=== PATIENT | male | born 1940 | race Caucasian/White ===

== ENCOUNTER 2022-11-19 08:48 | Outpatient (OUT) | payer MEDICARE, SELFPAY | END 2022-11-19 08:49 | disposition home or self-care (01) | LOC: LAB 08:53 | PROVIDERS: PCP Family Medicine; Visit Provider Urology | DX: C61 Malignant neoplasm of prostate (principal) | CPT/HCPCS: 36415; 84153 ==

== ENCOUNTER 2023-02-11 07:31 | Outpatient (RCR) | payer MEDICARE, SELFPAY ==
[2023-02-10 14:51] LABS: Hemoglobin 7.3 g/dL (14.0-18.0)
[2023-02-10 14:57] LABS: Hematocrit 23.8 % (42.0-54.0)
[2023-02-11 09:08] VITALS: BP 141/72; PULSE 85; RESP 18; TEMP 36.8
--- NOTE | 2023-02-11 09:12 | PC.NURSE ---
0825 Arrived ambulatory to chair 3. alert oriented Denies any complaints of pain. Respirations with ease, lungs clear posteriorly to auscultation. Heart tones strong and regular. No peripheral edema noted. 0830#20 IV initiated left forearm on 1st attempt, tolerated well. NSS initiated. educated on s/s of blood rxn ie, dyspnea chest pain, chills, itching etc instructed to notify staff in any occur. Labs drawn with IV start.
[2023-02-11] MEDS: DIPHENHYDRAMINE HCL 25 MG CAPSULE PO (09:25)
[2023-02-11] MEDS: ACETAMINOPHEN 325 MG TABLET 650 MG PO (09:25)
[2023-02-11] MEDS: 0.9 % SODIUM CHLORIDE 250 ML 20 ML IV (09:26)
[2023-02-11 09:59] VITALS: BP 141/72; PULSE 85; RESP 18; TEMP 36.8; O2SAT 93
--- NOTE | 2023-02-11 10:13 | PC.NURSE ---
1000 1st unitof prbc's initiated.
[2023-02-11 10:18] VITALS: BP 136/72; PULSE 85; RESP 18; TEMP 36.4
--- NOTE | 2023-02-11 10:28 | PC.NURSE ---
PRBC's infusing without difficulty, increased rate to 120
[2023-02-11 11:18] VITALS: BP 134/76; PULSE 71; RESP 18; TEMP 36.4; O2SAT 96
[2023-02-11 11:56] VITALS: BP 123/71; PULSE 76; RESP 16; TEMP 36.6; O2SAT 96
--- NOTE | 2023-02-11 12:02 | PC.NURSE ---
1155 1st unit infused. NS flush initiated. VS obtained. tolerated transfusion without difficult. IV site clear, no s/s of infiltration. Up to bathroom to void, gait steady. 1200 2ndunit prbc's initiated see TAR. Lunch ordered. 1205 Eating lunch, watches TV
--- NOTE | 2023-02-11 12:54 | PC.NURSE ---
Resting quietly in recliner, watching TV in to visit with patient. PRBC's infusing without any issues. Patient educated on what to watch for after returning home ie post transfussion reactions, fluid overload etc. Verbalizes understanding.
--- NOTE | 2023-02-11 14:25 | PC.NURSE ---
73831 2nd unit of PRBC's infused. tolerated well. IV dc'd catheter intact. cotton ball applied, secured with coban - instructed he could removie it inafter 10 - 15 mins. verbalized understanding
== END 2023-02-11 16:08 | disposition home or self-care (01) ==
LOC: INF 07:31
PROVIDERS: PCP Family Medicine; Visit Provider Internal Medicine Hematology & Oncology
DX: D64.9 Anemia, unspecified (principal); C61 Malignant neoplasm of prostate
CPT/HCPCS: 36415; 36430; 85014; 85018; 86850; 86900; 86901; P9016

== ENCOUNTER 2023-04-08 07:35 | Outpatient (RCR) | payer MEDICARE, SELFPAY ==
[2023-04-07 15:42] LABS: Hematocrit 20.9 % (42.0-54.0); Hemoglobin 6.3 g/dL (14.0-18.0)
[2023-04-08] VITALS (10 sets, daily range): BP systolic 117–173; BP diastolic 53–82; PULSE 66–91; RESP 16–18; TEMP 36.3–37.1; O2SAT 95–97
[2023-04-08] MEDS: ACETAMINOPHEN 325 MG TABLET 650 MG PO (08:15)
[2023-04-08] MEDS: 0.9 % SODIUM CHLORIDE 250 ML 10 ML IV (08:16)
[2023-04-08] MEDS: DIPHENHYDRAMINE HCL 25 MG CAPSULE PO (08:18)
--- NOTE | 2023-04-08 08:27 | PC.NURSE ---
Pt. Instructed on sign & symptoms of reaction
--- NOTE | 2023-04-08 09:43 | PC.NURSE ---
Cont. to tolerate transfusion well without c/o. Up to BR without assist.
--- NOTE | 2023-04-08 11:55 | PC.NURSE ---
Tolerating 2nd unit of blood well. No sign or symptoms of reaction. Lunch tray ordered.
== END 2023-04-21 23:59 | disposition home or self-care (01) ==
LOC: INF 07:35
PROVIDERS: PCP Family Medicine; Visit Provider Physician Assistant Medical
DX: D64.9 Anemia, unspecified (principal); C61 Malignant neoplasm of prostate
CPT/HCPCS: 36415; 36430; 85014; 85018; 86850; 86900; 86901; P9016

== ENCOUNTER 2023-04-25 07:37 | Outpatient (RCR) | payer MEDICARE, SELFPAY ==
[2023-04-23 08:44] LABS: Hematocrit 26.5 % (42.0-54.0); Hemoglobin 8.2 g/dL (14.0-18.0)
[2023-04-25] VITALS (8 sets, daily range): BP systolic 127–157; BP diastolic 58–76; PULSE 60–90; RESP 16–18; TEMP 36.6–36.9; O2SAT 96–98
[2023-04-25] MEDS: ACETAMINOPHEN 325 MG TABLET 650 MG PO (08:10)
[2023-04-25] MEDS: DIPHENHYDRAMINE HCL 25 MG CAPSULE PO (08:10)
[2023-04-25] MEDS: 0.9 % SODIUM CHLORIDE 250 ML 10 ML IV (08:12)
--- NOTE | 2023-04-25 08:52 | PC.NURSE ---
0750: Pt. to [facility] amb. for ordered blood transfusion. Seated in recliner. Denies c/o pain, n/v or dyspnea. Denies allergies. VSS. #22 gauge IV initiated to right forearm on first attempt. Flushes easily without redness or edema. Pt. tolerated with no c/o. Given pillow, blanket and water. Declines wanting to eat at this time.
--- NOTE | 2023-04-25 08:54 | PC.NURSE ---
0810: Medicated with Tylenol and Benadryl P.O as ordered.
--- NOTE | 2023-04-25 08:55 | PC.NURSE ---
0832: First unit PRBC initiated at this time.
--- NOTE | 2023-04-25 08:56 | PC.NURSE ---
0847: Pt. tolerating PRBC infusion without s&s of adverse reaction. Pt. denies needs.
--- NOTE | 2023-04-25 09:42 | PC.NURSE ---
Pt. cont. to deny c/o. VSS. Food menu provided.
--- NOTE | 2023-04-25 10:41 | PC.NURSE ---
0950: First unit PRBC completed without s&s of transfusion reaction. VSS. 1002: Second unit PRBC initiated at this time. Pt. given breakfast tray. 1040: Pt. up to bathroom to void.
--- NOTE | 2023-04-25 11:15 | PC.NURSE ---
1017: Pt. tolerating second unit PRBC without c/o. VSS.
--- NOTE | 2023-04-25 12:54 | PC.NURSE ---
1140: Second unit PRBC completed at this time without evidence of transfusion reaction. VSS. IV d/c'd, pressure to site. 1142: Pt. d/c'd amb. to home
== END 2023-04-25 13:10 | disposition home or self-care (01) ==
LOC: INF 07:37
PROVIDERS: PCP Family Medicine; Visit Provider Internal Medicine Hematology & Oncology
DX: D64.9 Anemia, unspecified (principal); C61 Malignant neoplasm of prostate
CPT/HCPCS: 36415; 36430; 85014; 85018; 86850; 86900; 86901; P9016

== ENCOUNTER 2023-06-06 11:47 | Emergency (ER) | payer MEDICARE, SELFPAY ==
[2023-06-06] VITALS (39 sets, daily range): BP systolic 113–150; BP diastolic 56–73; PULSE 74–94; RESP 3–31; TEMP 36.6; O2SAT 98–100; BMI 21.1
--- NOTE | 2023-06-06 12:11 | ECG_ITS ---
The [facility] Test Date: 2023-06-06 Pat Name: KARIN BOB Department: Room: - Gender: Male Testing Coordinator: : 1940 Requested By: CHAYITO DUARTE Order Number: [id number] Reading MD: POLLO SOW Measurements Intervals [place] Rate: 80 P: 53 AK: 132 QRS: 67 QRSD: 80 T: 40 QT: 392 QTc: 427 Interpretive Statements 1100 Sinus rhythm 9110 normal ECG Compared to ECG 11/24/2021 09:52:38 No significant changes Electronically Signed On 06-08-2023 6:39:44 EST by POLLO SOW
--- NOTE | 2023-06-06 12:21 | CT_ITS ---
The [address] [address] Patient Name: KARIN BOB MRN: [id number] date: 1940 Sex: M Assigned Patient Location: ER Current Patient Location: .[facility] Accession/Order Number: [id number] Exam Date: 06/06/2023 12:17 Report Date: 06/06/2023 12:43 At the request of: MUNIRA HIGGINS Procedure: CT stroke head/brain wo con EXAM: CT stroke head/brain wo con; [id number] REASON FOR EXAM: altered mentation, TIA COMPARISON: None. TECHNIQUE: Axial CT images of the head obtained without contrast. Multiplanar reformats generated at the scanner. Dose reduction technique used: Automated exposure control and/or adjustment of the mA and/or kV according to patient size and/or use of iterative reconstruction technique. FINDINGS: Parenchyma: -Mild generalized cerebral volume loss. -No midline shift or mass effect. Basilar cisterns are patent. -No acute intracranial hemorrhage. -No loss of cortical mccabe-white differentiation to indicate acute cortical infarct. -Mild multifocal and bilateral periventricular white matter predominant hypoattenuation, nonspecific though commonly seen in the setting of chronic microvascular ischemic disease. Extra-axial spaces: No extra-axial fluid collection or hemorrhage. Ventricles: Within expected limits given the degree of cerebral volume loss. Paranasal sinuses: Partially visualized small volume layering fluid in the left maxillary sinus. Mastoid air cells: Visualized mastoids are clear. Orbits: No acute abnormality. Osseous: No acute findings. Sclerosis of the skull base which could represent the patient's known prostate metastases. Soft tissues: No acute abnormality. CT/CT stroke head/brain wo con IMPRESSION: 1. No acute intracranial abnormality demonstrated. 2. Layering fluid in the left maxillary sinus. Correlate for sinusitis. Electronically authenticated by: ABRAM ESTRADA Date: 06/06/2023 12:43
[2023-06-06] MEDS: 0.9 % SODIUM CHLORIDE 1,000 ML 999 ML IV (12:26)
[2023-06-06 12:28] LABS: Hematocrit 32.1 % (42.0-54.0); Hemoglobin 10.1 g/dL (14.0-18.0); Mean Corpuscular HGB Conc 31.5 g/dL (29.9-35.2); Mean Corpuscular Hemoglobin 30.2 pg (25.9-34.0); Mean Corpuscular Volume 96.1 fL (80.0-94.0); Mean Platelet Volume 8.9 fL (9.5-13.5); Platelet Count 173 10^3/uL (150-450); Red Blood Count 3.34 10^6/uL (4.70-6.10); Red Cell Distribution Width 17.5 % (11.0-15.0); White Blood Count 3.3 10^3/uL (4.0-11.0)
[2023-06-06 12:45] LABS: Alanine Aminotransferase 36 U/L (16-63); Albumin Globulin Ratio 0.9; Albumin Level 3.3 g/dL (3.4-5.0); Alkaline Phosphatase 625 U/L (46-116); Anion Gap 14.1; Aspartate Amino Transferase 45 U/L (15-37); Bilirubin Total 0.4 mg/dL (0.2-1.0); Calcium 8.2 mg/dL (8.5-10.1); Carbon Dioxide 23.6 mmol/L (21.0-32.0); Chloride 105 mmol/L (98-107); Estimated GFR (African America >60 (>=60); Estimated GFR (Non-African Ame >60 (>=60); Globulin 3.7 g/dL; Glucose 86 mg/dL (74-106); Potassium 4.7 mmol/L (3.5-5.1); Sodium 138 mmol/L (136-145)
[2023-06-06 12:55] LABS: Anisocytosis 1+; Basophils Abs Manual 0.03 10^3/uL (0.00-0.10); Eosinophils Absolute Manual 0.06 10^3/uL (0.00-0.70); Lymphocytes Absolute Manual 0.42 10^3/uL (1.20-3.80); Monocytes Absolute Manual 0.36 10^3/uL (0.30-0.80); Tear Drop Cells 1+
--- NOTE | 2023-06-06 13:01 | ED.GENADUL1 ---
HPI - General Adult General Chief complaint: Seizure Stated complaint: seizure Time Seen by Provider: 06/06/23 11:49 Source: patient Mode of arrival: walk-in History of Present Illness HPI narrative: gives the HPI - she witnessed the patient suddenly stop, was drooling from the side of the mouth and just staring and not responding. He started tremoring/shaking the told me. This last between 5 and 10 minutes, the said. She then drove him to the ED for evaluation. She said that he was not confused afterward and just seemed to snap out of it . No prior history of seizure or CVA. 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 He told me that his Hb has to be above 10 in order for him to continue to receive radiation therapy. he otherwise denies any other complaints or issues at this time. His PCP is Dr Duarte Related Data Home Medications Medication Instructions Recorded Confirmed tamsulosin 0.4 mg capsule 0.4 mg PO Q24H 02/11/23 06/06/23 Allergies Allergy/AdvReac Type Severity Reaction Status Date / Time No Known Drug Allergies Allergy Verified 06/06/23 11:52 [facility] Medical History (Updated 06/06/23 @ 16:31 by Rigo Parks) Cancer of bone ?C41.9 - Malignant neoplasm of bone and articular cartilage, unspecified (ICD-10) Exam Narrative Exam Narrative: Nurses notes and vital signs reviewed and patient is not hypoxic. afebrile General: Well-appearing and in no apparent distress. Skin: Warm, dry, no pallor noted. No rash. Head: Normocephalic, atraumatic. Neck: Supple, non-tender. Eye: Pupils are equal, round and EOMI. No scleral icterus. Ears, Nose, Mouth, and Throat: Oral mucosa is moist Cardiovascular: Regular Rate and Rhythm without murmur, gallop or rub. Respiratory: No accessory muscle use or respiratory distress. Lungs are clear to auscultation, no wheezing, rales or rhonchi Musculoskeletal: normal ROM, no calf or popliteal tenderness, no lower extremity edema/swelling GI: Abdomen is soft, non-distended. Normal bowel sounds. No tenderness to palpation. No rebound, guarding, or rigidity noted. Neurological: A&O x4. No cranial nerve dysfunction observed. No truncal ataxia. Moves all extremities. Sensation intact. No pronator drift or neglect noted. NIH score equals 0 Psychiatric: Cooperative and interactive. Normal mood and affect. Constitutional Vital Signs, click to edit/add: Last Vital Signs Temp 97.8 F 06/06/23 11:52 Pulse 81 06/06/23 13:40 Resp 15 06/06/23 13:40 BP 131/60 06/06/23 13:30 Pulse Ox 99 06/06/23 13:40 O2 Del Method Room Air 06/06/23 11:52 Course Vital Signs Vital signs: Vital Signs Temperature 97.8 F 06/06/23 11:52 Pulse Rate 80 06/06/23 11:52 Respiratory Rate 20 06/06/23 11:52 Blood Pressure 150/71 H 06/06/23 11:52 Pulse Oximetry 99 06/06/23 11:52 Oxygen Delivery Method Room Air 06/06/23 11:52 Temperature 97.8 F 06/06/23 11:52 Pulse Rate 81 06/06/23 13:40 Respiratory Rate 06/06/23 13:40 Blood Pressure 131/60 06/06/23 13:30 Pulse Oximetry 99 06/06/23 13:40 Oxygen Delivery Method Room Air 06/06/23 11:52 Medical Decision Making MDM Narrative Medical decision making narrative: 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 Blood drawn and sent for evaluation. Stroke CT Head obtained and negative for acutely worrisome pathology. Hb 10.1. CMP notable for elevated alk phos and AST, normal electrolytes and normal renal function. Case discussed with Dr Rubin, emissions inspector for admissions to [facility]. He wants the patient to go to a facility with Neuro coverage and ability to evaluated EEGs. I informed the patient and and they want the patient to go to [facility] - he does not want to go to [place]. Call placed to the [facility] Hospitalist to discuss. I spoke with Dr Hernandez and she accepted the patient's transfer to [facility] for admission. Lab Data Lab results reviewed: Yes I reviewed the patient's lab results Labs: Lab Results 06/06/23 06/06/23 Range/Units 12:02 14:21 WBC 3.3 L (4.0-11.0) 10^3/uL RBC 3.34 L (4.70-6.10) 10^6/uL Hgb 10.1 L (14.0-18.0) g/dL Hct 32.1 L (42.0-54.0) % MCV 96.1 H (80.0-94.0) fL MCH 30.2 (25.9-34.0) pg MCHC 31.5 (29.9-35.2) g/dL RDW 17.5 H (11.0-15.0) % Plt Count 173 (150-450) 10^3/uL MPV 8.9 L (9.5-13.5) fL Seg Neuts % (Manual) 73.0 Lymphocytes % (Manual) 13.0 L (20.5-60.0) % Monocytes % (Manual) 11.0 (1.7-12.0) % Eosinophils % (Manual) 2.0 (0.9-7.0) % Basophils % (Manual) 1.0 (0.2-2.0) % Neutrophils # (Manual) 2.40 (1.4-6.5) 10^3/uL Lymphocytes # (Manual) 0.42 L (1.20-3.80) 10^3/uL Monocytes # (Manual) 0.36 (0.30-0.80) 10^3/uL Eosinophils # (Manual) 0.06 (0.00-0.70) 10^3/uL Basophils # (Manual) 0.03 (0.00-0.10) 10^3/uL Anisocytosis 1+ Tear Drop Cells 1+ Sodium 138 (136-145) mmol/L Potassium 4.7 (3.5-5.1) mmol/L Chloride 105 (98-107) mmol/L Carbon Dioxide 23.6 (21.0-32.0) mmol/L Anion Gap 14.1 BUN 17.0 (7.0-18.0) mg/dL Creatinine 0.85 (0.70-1.30) mg/dL Est GFR ( Amer) >60 (>=60) Est GFR (Non-Af Amer) >60 (>=60) BUN/Creatinine Ratio 20.0 Glucose 86 (74-106) mg/dL Calcium 8.2 L (8.5-10.1) mg/dL Total Bilirubin 0.4 (0.2-1.0) mg/dL AST 45 H (15-37) U/L ALT 36 (16-63) U/L Alkaline Phosphatase 625 H (46-116) U/L Total Protein 7.0 (6.4-8.2) g/dL Albumin 3.3 L (3.4-5.0) g/dL Globulin 3.7 g/dL Albumin/Globulin Ratio 0.9 Urine Color Lt. yellow (YELLOW) Urine Clarity Clear (CLEAR) Urine pH 5.5 (5.0-9.0) Ur Specific [place] 1.020 (1.005-1.025) Urine Protein Negative (NEG/TRACE) mg/dL Urine Glucose (UA) Negative (NEGATIVE) mg/dL Urine Ketones Trace A (NEGATIVE) mg/dL Urine Occult Blood Negative (NEGATIVE) Urine Nitrite Negative (NEGATIVE) Urine Bilirubin Negative (NEGATIVE) Urine Urobilinogen 0.2 (0.2-1.0) EU/dL Ur Leukocyte Esterase Negative (NEGATIVE) Imaging Data CT scan - head: Attestation: I have reviewed the pertinent imaging results. Radiologist's impression: ITS Impressions Brain CT 06/06/23 12:21 IMPRESSION: 1. No acute intracranial abnormality demonstrated. 2. Layering fluid in the left maxillary sinus. Correlate for sinusitis. Electronically authenticated by: ABRAM ESTRADA Date: 06/06/2023 12:43 ADDENDUM: 06/06/23 1252 IMPRESSION: 1. No acute intracranial abnormality demonstrated. 2. Layering fluid in the left maxillary sinus. Correlate for sinusitis. Electronically authenticated by: ABRAM ESTRADA Date: 06/06/2023 12:50 ECG Data Attestation: I personally reviewed and interpreted this ECG as follows: Interpretation: EKG interpretation: Emergency Department physician interpretation. Normal sinus rhythm at 80bpm. Normal axis, normal intervals and no ST segment elevation or depression. Normal EKG. Discharge Plan Discharge Chief Complaint: Seizure Clinical Impression: Transient ischemic attack (TIA) Patient Disposition: [facility] Time of Disposition Decision: 15:29 Discharge Location: [facility] Prescriptions / Home Meds: No Action tamsulosin 0.4 mg capsule 0.4 mg PO Q24H Referrals: CHAYITO DUARTE [Primary Care Provider] - 1 week
[2023-06-06 14:31] LABS: Bilirubin Urine NEGATIVE (NEGATIVE); Blood Urine NEGATIVE (NEGATIVE); Clarity Urine CLEAR (CLEAR); Color Urine LT. YELLOW (YELLOW); Glucose Urine UA NEGATIVE (NEGATIVE); Ketones Urine TRACE mg/dL (NEGATIVE); Leukocyte Esterase Urine NEGATIVE (NEGATIVE); Nitrite Urine NEGATIVE (NEGATIVE); Protein Urine NEGATIVE (NEG/TRACE); Urobilinogen Urine 0.2 EU/dL (0.2-1.0); pH Urine 5.5 (5.0-9.0)
[2023-06-06 14:33] LABS: Urine Microscopic Indicated NO
== END 2023-06-06 18:04 | disposition short-term general hospital (02) ==
PROVIDERS: Emergency Provider Emergency Medicine; PCP Family Medicine
DX: G45.9 Transient cerebral ischemic attack, unspecified (principal); Z85.46 Personal history of malignant neoplasm of prostate; C79.51 Secondary malignant neoplasm of bone; Z79.899 Other long term (current) drug therapy
CPT/HCPCS: 36415; 70450; 80053; 81003; 85027; 93005; 99285

== ENCOUNTER 2023-06-22 09:57 | Outpatient (OUT) | payer MEDICARE, SELFPAY ==
--- NOTE | 2023-06-22 10:08 | CT_ITS ---
The [address] [address] Patient Name: KARIN BOB MRN: [facility]:[id number] date: 1940 Sex: M Assigned Patient Location: CT Current Patient Location: CT Accession/Order Number: [id number] Exam Date: 06/22/2023 10:25 Report Date: 06/22/2023 11:19 At the request of: KYARA WHITLOCK Procedure: CT angio neck EXAM: CT angio neck, CT angio head HISTORY: Transient Ischemic Attack G45.9 COMPARISON: CT head performed contemporaneously reported separately.. TECHNIQUE: Postcontrast CTA imaging of the head and neck was performed with coronal and sagittal reformats. Maximum intensity projection and 3-D reformats were performed on a separate workstation. This CT exam was performed using one or more of the following dose reduction techniques: Automated exposure control, adjustment of the MA and/or kV according to patient size, or use of iterative reconstruction technique. FINDINGS: Aortic arch: Imaged portion shows no evidence of aneurysm. No significant stenosis of the major origins of the major arch vessels. Right carotid system: No evidence of significant (50% or greater) stenosis or occlusion. Left carotid system: No evidence of significant (50% or greater) stenosis or occlusion. Vertebral arteries: Codominant. No evidence of significant (50% or greater) stenosis or occlusion. Anterior circulation: No evidence of aneurysm, significant stenosis, or occlusion. Vertebrobasilar system: No evidence of aneurysm, significant stenosis, or occlusion. Venous sinuses: Grossly patent. Additional findings: Partially visualized moderate left pleural effusion. Diffuse heterogeneous appearance of the visualized spine and sternum system with no for diffuse osseous metastatic disease. CT/CT angio neck IMPRESSION: 1. No significant stenosis, large vessel occlusion or aneurysm involving the neck or intracranial arterial vasculature. 2. Partially visualized moderate left pleural effusion. 3. Osseous metastatic disease involving the visualized spine and abdomen. No overt pathologic fracture within the [id number]. Electronically authenticated by: GILBERTO DUTTA Date: 06/22/2023 11:19
--- NOTE | 2023-06-22 10:08 | CT_ITS ---
The [address] [address] Patient Name: KARIN BOB MRN: [facility]:[id number] date: 1940 Sex: M Assigned Patient Location: CT Current Patient Location: CT Accession/Order Number: [id number] Exam Date: 06/22/2023 10:25 Report Date: 06/22/2023 11:19 At the request of: KYARA WHITLOCK Procedure: CT angio head EXAM: CT angio neck, CT angio head HISTORY: Transient Ischemic Attack G45.9 COMPARISON: CT head performed contemporaneously reported separately.. TECHNIQUE: Postcontrast CTA imaging of the head and neck was performed with coronal and sagittal reformats. Maximum intensity projection and 3-D reformats were performed on a separate workstation. This CT exam was performed using one or more of the following dose reduction techniques: Automated exposure control, adjustment of the MA and/or kV according to patient size, or use of iterative reconstruction technique. FINDINGS: Aortic arch: Imaged portion shows no evidence of aneurysm. No significant stenosis of the major origins of the major arch vessels. Right carotid system: No evidence of significant (50% or greater) stenosis or occlusion. Left carotid system: No evidence of significant (50% or greater) stenosis or occlusion. Vertebral arteries: Codominant. No evidence of significant (50% or greater) stenosis or occlusion. Anterior circulation: No evidence of aneurysm, significant stenosis, or occlusion. Vertebrobasilar system: No evidence of aneurysm, significant stenosis, or occlusion. Venous sinuses: Grossly patent. Additional findings: Partially visualized moderate left pleural effusion. Diffuse heterogeneous appearance of the visualized spine and sternum system with no for diffuse osseous metastatic disease. CT/CT angio head IMPRESSION: 1. No significant stenosis, large vessel occlusion or aneurysm involving the neck or intracranial arterial vasculature. 2. Partially visualized moderate left pleural effusion. 3. Osseous metastatic disease involving the visualized spine and abdomen. No overt pathologic fracture within the [id number]. Electronically authenticated by: GILBERTO DUTTA Date: 06/22/2023 11:19
--- NOTE | 2023-06-22 10:08 | CT_ITS ---
The [address] [address] Patient Name: KARIN BOB MRN: [facility]:[id number] date: 1940 Sex: M Assigned Patient Location: CT Current Patient Location: CT Accession/Order Number: [id number] Exam Date: 06/22/2023 10:25 Report Date: 06/22/2023 10:59 At the request of: KYARA WHITLOCK Procedure: CT head/brain wo con EXAM: CT head/brain wo con HISTORY: Transient Ischemic Attack G45.9 COMPARISON: CT head 06/06/2023. TECHNIQUE: This CT exam was performed using one or more of the following dose reduction techniques: Automated exposure control, adjustment of the MA and/or kV according to patient size, or use of iterative reconstruction technique. FINDINGS: Calvarium/skull base: No evidence of acute fracture or destructive lesion. Mastoids and middle ears demonstrate no substantial mucosal disease. Bilateral [place] ocular lens replacements. Paranasal sinuses: No air fluid levels. Brain: No acute intracranial hemorrhage. No acute large vascular territory infarct. No mass lesion or mass effect. No hydrocephalus. CT/CT head/brain wo con IMPRESSION: No acute intracranial process. If there is ongoing clinical concern for recent ischemia recommend MRI brain for further evaluation. Electronically authenticated by: GILBERTO DUTTA Date: 06/22/2023 10:59
== END 2023-06-22 09:58 | disposition home or self-care (01) ==
LOC: CT 09:59
PROVIDERS: PCP Family Medicine; Visit Provider Nurse Practitioner Family
DX: G45.9 Transient cerebral ischemic attack, unspecified (principal); R47.01 Aphasia
CPT/HCPCS: 70450; 70496; 70498; Q9967

== ENCOUNTER 2023-09-10 18:21 | Emergency (ER) | payer MEDICARE, SELFPAY ==
[2023-09-10] VITALS (25 sets, daily range): BP systolic 131–150; BP diastolic 64–112; PULSE 76–89; TEMP 36.7; O2SAT 96–100; BMI 21.5
--- NOTE | 2023-09-10 18:24 | CT_ITS ---
The [address] [address] Patient Name: KARIN BOB MRN: [facility]:[id number] date: 1940 Sex: M Assigned Patient Location: ER Current Patient Location: .[facility] Accession/Order Number: [id number] Exam Date: 09/10/2023 18:25 Report Date: 09/10/2023 18:55 At the request of: JUSTIN CHENEY Procedure: CT stroke head/brain wo con NONCONTRAST CT SCAN OF THE HEAD HISTORY: Headache. TECHNIQUE: Multiple axial images are taken from the level the vertex down to the base of the skull without the use of IV contrast. Images were then reconstructed in the sagittal and coronal planes. This exam was performed according to our departmental dose-optimization program which includes use of Automated Exposure Control, adjustment of the mA and/or kV according to patient size and/or use of iterative reconstruction technique. COMPARISON: 05/27/2023 CT head FINDINGS: Brain Parenchyma: There is global, diffuse atrophy with periventricular decreased white matter attenuation. No intracranial mass. There is encephalomalacia demonstrated involving the left inferior temporal lobe, new compared to prior exam there is also some subdural blood which is seen involving the right temporal lobe with some subarachnoid blood. There is a hyperdense mass which is seen in the posterior right temporal occipital lobe measuring 20 x 20 mm. Posterior fossa: Normal. Midline shift: None Extra-axial fluid collection: Extra-axial blood is demonstrated along the left subdural space measuring 6.5 mm in greatest thickness which is seen along the left convexity of the cerebral hemisphere. Ventricles: Normal. Mastoid air cells: Normal. Sinuses: Normal. Cranium: No depressed skull fracture. Soft tissues: Normal. Orbits: Orbits demonstrate postoperative changes from prior cataract resection with prosthetic lens implant. CT/CT stroke head/brain wo con IMPRESSION: 1. Acute left subdural blood greatest along the left frontal parietal lobe although demonstrated along the entire left cerebral hemisphere. MRI may help better delineate. 2 . Acute right inferior temporal subdural and subarachnoid blood. 3. Vasogenic edema versus encephalomalacia involving the inferior left temporal lobe such that a mass cannot be excluded. MRI with and without IV contrast is recommended for further evaluation. 4. Hyperdense mass in the posterior right occipital lobe measures 20 mm. MRI with IV contrast is recommended for further evaluation CRITICAL findings: Spoke with Justin GARCIA in the at 6:52 pm EST. JOSE Cheney has provided further history: Patient has history of prostate cancer. Electronically authenticated by: CLARA VALLES Date: 09/10/2023 18:55
--- NOTE | 2023-09-10 18:25 | ECG_ITS ---
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
--- NOTE | 2023-09-10 18:25 | XR_ITS ---
The [address] [address] Patient Name: KARIN BOB MRN: [id number] date: 1940 Sex: M Assigned Patient Location: ER Current Patient Location: ED.MAIN Accession/Order Number: [id number] Exam Date: 09/10/2023 18:38 Report Date: 09/10/2023 19:16 At the request of: JUSTIN CHENEY Procedure: XR chest 1V EXAM: XR chest 1V HISTORY: cva . History of metastatic prostate cancer. COMPARISON: Chest x-ray 07/19/2022 and earlier. Bone scan 12/09/2021. TECHNIQUE: AP portable upright chest x-ray FINDINGS: Increased density is developing retrocardiac area left base obscures left diaphragm and descending aorta new from previous. Suspect infiltrate within the left lower lobe. May be associated pleural effusion. Graft left mid and upper lung and right lung appear clear. Cardiac silhouette is prominent and appears to have increased although this accentuated by magnification. No right-sided effusion seen. Diffuse sclerotic bone metastasis noted as seen on bone scan. XR/XR chest 1V IMPRESSION: 1. Diffuse bony metastasis which is a marked change from previous chest x-ray. 2. Developing density retrocardiac area left lung base back airspace density in the left lower lobe and pleural effusion. Possible pneumonia, follow-up recommended. Electronically authenticated by: RONAN CHINCHILLA Date: 09/10/2023 19:16
--- NOTE | 2023-09-10 18:26 | ED_ITS ---
HPI HPI - General Adult General Chief complaint: Altered Mental Status Stated complaint: Extreme Weakness, Possible CVA Time Seen by Provider: 09/10/23 18:23 History of Present Illness HPI narrative: Patient is an 82-year-old male who presents to the emergency department by private car with his for the evaluation of strokelike symptoms. Patient's states that the patient took a nap at 2:30 PM, when he woke up about 30 minutes ago around 1750, he had an episode of vomiting and was altered with aphasia. noticed that his right arm seemed weaker. He had no falls or injuries. He was seen in this emergency department for questionable seizure v ersus TIA in May and transferred to [facility]. 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 He receives hematology/oncology care at the [facility] with Dr. Oconnor And receives Pluvicto. At time of my evaluation, patient is aphasic, having difficulty following commands but denies any pain. is an excellent historian, she states he does not take blood thinners and had a similar episode in May although she states this episode is worse. Related Data Home Medications ?Medication ?Instructions ?Recorded ?Confirmed tamsulosin 0.4 mg capsule 0.4 mg PO Q24H 02/11/23 09/10/23 cephalexin 500 mg capsule 500 mg PO BID 09/10/23 09/10/23 hydrocodone 5 mg-acetaminophen 325 tab 09/10/23 mg tablet levetiracetam 500 mg tablet 500 mg PO BID 09/10/23 09/10/23 Allergies Allergy/AdvReac Type Severity Reaction Status Date / Time No Known Drug Allergies Allergy Verified 09/10/23 18:49 Opioid HPI Opioid Management Most Recent Opioid Data: No Data to Display Review of Systems ROS Constitutional Denies: fever or chills Ears, nose, mouth, and throat Denies: nasal congestion Respiratory Denies: shortness of breath Gastrointestinal Reports: nausea and vomiting Musculoskeletal Denies: back pain or neck pain Integumentary/Breast Denies: rash Neurological Denies: headache Hematologic/Lymphatic Denies: easy bruising or easy bleeding PFSH PFSH Medical History (Updated 09/10/23 @ 19:05 by JOSE Griffin) Cancer of bone ?C41.9 - Malignant neoplasm of bone and articular cartilage, unspecified (ICD-10) Exam Narrative Exam Narrative: Gen.: Awake, alert, shuffling gait to exam cart Head: Normocephalic, atraumatic ENT: Moist mucous membranes; No facial droop, mild dysarthria, moderate aphasia Respiratory: No respiratory distress, lungs clear bilaterally Cardio: Regular rate and rhythm Extremities: Weakness of left leg with drift Psych: Normal mood and affect Neuro: No focal neuro deficit; NIH scale of 7 for LOC questions, aphasia with mild dysarthria Skin: Warm, dry, intact Constitutional Vital Signs, click to edit/add: Last Vital Signs Temp 98.0 F 09/10/23 18:31 Pulse 78 09/10/23 19:45 Resp 14 09/10/23 19:45 BP 131/71 09/10/23 19:45 Pulse Ox 98 09/10/23 19:40 O2 Del Method Room Air 09/10/23 18:31 Course Vital Signs Vital signs: Vital Signs Temperature 98.0 F 09/10/23 18:31 Pulse Rate 89 09/10/23 18:31 Respiratory Rate 16 09/10/23 18:31 Blood Pressure 147/112 H 09/10/23 18:31 Pulse Oximetry 98 09/10/23 18:31 Oxygen Delivery Method Room Air 09/10/23 18:31 Temperature 98.0 F 09/10/23 18:31 Pulse Rate 78 09/10/23 19:45 Respiratory Rate 14 09/10/23 19:45 Blood Pressure 131/71 09/10/23 19:45 Pulse Oximetry 98 09/10/23 19:40 Oxygen Delivery Method Room Air 09/10/23 18:31 Medical Decision Making MDM Narrative Medical decision making narrative: On arrival to the emergency department, patient was immediately taken into a trauma bay and assessed by nursing staff and myself. He was placed on cardiac monitoring with IV established. He was found to have altered mental status, difficulty following directions and moderate aphasia. Vital signs are stable in the ER. Patient immediately sent for CT of the brain without contrast with stroke protocol. Radiologist review these images and contacted the ER stating that the patient has multiple areas of bilateral subdural bleeding and multiple suspected areas of brain metastasis. Patient was treated with IV Decadron. He was given Zofran and gentle fluids in the ER. Results were discussed with the patient's at bedside. Discussed transfer to a larger tertiary care facility and the patient's request [facility] as he has received his cancer care there previously. [facility] transfer line was contacted and Dr. Lauren accepted the patient for transfer to neuro ICU. I also spoke with the neuro ICU physician who requested we give 1 g of IV Keppra Seizure prophylaxis. Patient is stable at this time.Pending bed assignment and transfer to [facility]. Critical care time 35 minutes. Medical Records Medical records reviewed: Yes I reviewed the patient's medical records Lab Data Lab results reviewed: Yes I reviewed the patient's lab results Labs: Lab Results 09/10/23 Range/Units 18:25 WBC 2.4 L (4.0-11.0) 10^3/uL RBC 3.26 L (4.70-6.10) 10^6/uL Hgb 10.0 L (14.0-18.0) g/dL Hct 31.4 L (42.0-54.0) % MCV 96.3 H (80.0-94.0) fL MCH 30.7 (25.9-34.0) pg MCHC 31.8 (29.9-35.2) g/dL RDW 14.6 (11.0-15.0) % Plt Count 90 L (150-450) 10^3/uL MPV 9.3 L (9.5-13.5) fL Neut % (Auto) 73.1 (43.0-75.0) % Lymph % (Auto) 11.2 L (20.5-60.0) % [facility] % (Auto) 13.2 H (1.7-12.0) % Eos % (Auto) 0.4 L (0.9-7.0) % Baso % (Auto) 0.4 (0.2-2.0) % Neut # (Auto) 1.8 (1.4-6.5) 10^3/uL Lymph # (Auto) 0.3 L (1.2-3.8) 10^3/uL [facility] # (Auto) 0.3 (0.3-0.8) 10^3/uL Eos # (Auto) 0.0 (0.0-0.7) 10^3/uL Baso # (Auto) 0.0 (0.0-0.1) 10^3/uL Abs Immat Gran (auto) 0.04 H (0.00-0.03) 10^3/uL Imm/Tot Granulo (auto) 1.7 H (0.0-0.5) % PT 10.9 (9.0-11.6) sec INR 1.03 Sodium 137 (136-145) mmol/L Potassium 4.6 (3.5-5.1) mmol/L Chloride 102 (98-107) mmol/L Carbon Dioxide 24.4 (21.0-32.0) mmol/L Anion Gap 15.2 BUN 16.0 (7.0-18.0) mg/dL Creatinine 0.92 (0.70-1.30) mg/dL Est GFR ( Amer) >60 (>=60) Est GFR (Non-Af Amer) >60 (>=60) BUN/Creatinine Ratio 17.4 Glucose 103 (74-106) mg/dL Lactate 1.5 (0.4-2.0) mmol/L Calcium 8.6 (8.5-10.1) mg/dL Total Bilirubin 0.7 (0.2-1.0) mg/dL AST 221 H (15-37) U/L ALT 117 H (16-63) U/L Alkaline Phosphatase 1241 H (46-116) U/L Troponin I High Sens 8.9 (4.0-76.1) pg/mL Total Protein 6.8 (6.4-8.2) g/dL Albumin 3.2 L (3.4-5.0) g/dL Globulin 3.6 g/dL Albumin/Globulin Ratio 0.9 TSH 4.858 H (0.358-3.740) uIU/mL Imaging Data Chest x-ray: Attestation: I have reviewed the pertinent imaging results. Radiologist's impression: ITS Impressions Brain CT 09/10/23 18:24 IMPRESSION: 1. Acute left subdural blood greatest along the left frontal parietal lobe although demonstrated along the entire left cerebral hemisphere. MRI may help better delineate. 2 . Acute right inferior temporal subdural and subarachnoid blood. 3. Vasogenic edema versus encephalomalacia involving the inferior left temporal lobe such that a mass cannot be excluded. MRI with and without IV contrast is recommended for further evaluation. 4. Hyperdense mass in the posterior right occipital lobe measures 20 mm. MRI with IV contrast is recommended for further evaluation CRITICAL findings: Spoke with Zoë GARCIA in the at 6:52 pm EST. JOSE Jeronimo has provided further history: Patient has history of prostate cancer. Electronically authenticated by: CLARA VALLES Date: 09/10/2023 18:55 Chest X-Ray 09/10/23 18:25 IMPRESSION: 1. Diffuse bony metastasis which is a marked change from previous chest x-ray. 2. Developing density retrocardiac area left lung base back airspace density in the left lower lobe and pleural effusion. Possible pneumonia, follow-up recommended. Electronically authenticated by: RONAN CHINCHILLA Date: 09/10/2023 19:16 ECG Data Attestation: I personally reviewed and interpreted this ECG as follows: (Normal sinus rhythm at a rate of 83, sinus arrhythmia noted with no acute ST elevation or ectopy. EKG reviewed by attending physician) Critical Care Time Critical Care Time Critical Care Time: Yes Total Critical Care Time: 35 Attestation: 35 min of critical care time for stroke protocol evaluation, transfer to tertiary care with critical diagnosis Discharge Plan Discharge Chief Complaint: Altered Mental Status Clinical Impression: Acute subdural hematoma, Aphasia, Thrombocytopenia, Metastasis to brain, Altered mental status Patient Disposition: [facility] Time of Disposition Decision: 19:05 Discharge Location: [facility] Condition: Fair Mode of Transportation: [employer]
--- OUTSIDE RECORDS SUMMARY | 2023-09-10 18:29 | XMS_ITS | CCD ---
Author Organization [facility] Care Team Providers Care Net Washer Name Role Phone MARS, CHOCO BONILLA Attending Unavail able NINA SMITH Primary Care Physician Nina Smith MD Primary Care Provider [phone] Luis MCGARRY, Nina Kam Primary Care Provider Luis Carlos MCGARRY, Juancho R Unavailable Marek CYCLING INSTRUCTOR.PLASTER MACHINE TENDER, Brinda Unavailable Di RN, Kelly Unavailable [phone] Nina Smith MD Primary Care Provider Di WILLIAMSON, Kelly Unavailable Luis MCGARRY, Nina Kam Primary Care Provider Luis Carlos MCGARRY, Juancho R Unavailable Marek CYCLING INSTRUCTOR.PLASTER MACHINE TENDER, Brinda Unavailable Di WILLIAMSON, Kelly Unavailable DR COLTEN MASON Consulting Unavailable HAY ., DR LOMBARDO Admitting Unavailable SMITH ., DR NINA Mckee Primary Care Unavailable HAY ., DR LOMBARDO Attending Unavailable HAY ., DR LOMBARDO Consulting Unavailable SMITH ., DR NINA Mckee Admitting Unavailable SMITH ., DR NINA Mckee Attending Unavailable SMITH ., DR NINA Mckee Primary Care Unavailable SMITH ., DR NINA Mckee Attending Unavailable SMITH ., DR NINA Mckee Admitting Unavailable SMITH ., DR NINA Mckee Consulting Unavailable SMITH ., DR NINA Mckee Primary Care Unavailable MULLER ., DR MOSS Admitting Unavailable SMITH ., DR NINA Mckee Primary Care Unavailable MULLER ., DR MOSS Attending Unavailable MULLER ., DR MOSS Consulting Unavailable CITLALI STALLWORTH Consulting Unavailable SMITH ., DR NINA Mckee Primary Care Unavailable MULLER ., DR MOSS Admitting Unavailable MULLER ., DR MOSS Attending Unavailable MULLER ., DR MOSS Consulting Unavailable SMITH ., DR NINA Mckee Primary Care Unavailable LAZARO, DR CADE Son Admitting Unavailable LAZARO, DR CADE Son Attending Unavailable LAZARO, DR CADE Son Consulting Unavailable JUJU ALICEA Consulting Unavailable PAY ., DR RIZZO Consulting Unavailable PAY ., DR RIZZO Admitting Unavailable SMITH ., DR NINA Mckee Primary Care Unavailable PAY ., DR RIZZO Attending Unavailable SMITH ., DR NINA Mckee Primary Care Unavailable GREG ., ALMA Admitting Unavailable SHRAVAN ., JOSE ANDERSON Consulting Unavailmaria a GARZA ., ALMA Attending Unavailable SANDRA LOTT Consulting Unavailable GREG ., ALMA Consulting Unavailable Nina Smith MD Primary Care Provider NINA SMITH Primary Care Physician Chayito Duarte MD Primary Care Provider Di RN, Kelly Unavailable [phone] Chayito Duarte. Primary Care Physician MD Chayito Duarte Primary Care Provider DO Miguel Angel Mcbride Other Provider MD Martin Holm Admit Provider MD Martin Holm Attending Provider Chayito Duarte Primary Care Unavailable Miguel Angel Mcbride Consulting Unavailable Martin Holm Admitting Unavailable Martin Holm Attending Unavailable TAM LEWIS Attending Unavailable Nina Smith MD Primary Care Provider [phone] CHAYITO DUARTE E Primary Care Unavailable JUANCHO ALDRIDGE Referring Unavailable ROSS, CHAYITO E Primary Care Unavailable SAVANNA ADRIAN Referring Unavailable SAVANNA ADRIAN Attending Unavailable FELICIA, CHAYITO E Primary Care Unavailable SAVANNA ADRIAN Referring Unavailable ROSS, CHAYITO E Primary Care Unavailable FELICIA, CHAYITO E Primary Care Unavailable JUANCHO ALDRIDGE Referring Unavailable ROSS, CHAYITO E Primary Care Unavailable JUANCHO ALDRIDGE Referring Unavailable ROSS, CHAYITO E Primary Care Unavailable BRINDA DELATORRE Attending Unavailable ROSS, CHAYITO E Primary Care Unavailable FELICIA, CHAYITO E Primary Care Unavailable JUANCHO ALDRIDGE Referring Unavailable JUANCHO ALDRIDGE Attending Unavailable SMITH, NINA EDWARD Primary Care Unavailable JUANCHO ALDRIDGE Referring Unavailable NINA SMITH MELIZAMONICA Primary Care Unavailable JUANCHO ALDRIDGE Referring Unavailable ROSS, CHAYITO E Primary Care Unavailable JUANCHO ALDRIDGE Attending Unavailable ROSS, CHAYITO E Primary Care Unavailable KAYLAH, SAVANNA M Referring Unavailable ROSS, CHAYITO E Primary Care Unavailable KAYLAH, SAVANNA M Referring Unavailable KAYLAH, SAVANNA M Referring Unavailable ROSS, CHAYITO E Primary Care Unavailable KAYLAHPEDORY M Attending Unavailable ROSS, CHAYITO E Primary Care Unavailable ROSS, CHAYITO E Primary Care Unavailable KARMA OCONNOR Referring Unavailable ROSS, CHAYITO E Primary Care Unavailable KAYLAH, SAVANNA M Referring Unavailable ROSS, CHAYITO E Primary Care Unavailable JUANCHO ALDRIDGE Referring Unavailable ROSS, CHAYITO E Primary Care Unavailable JUANCHO ALDRIDGE Attending Unavailable ROSS, CHAYITO E Primary Care Unavailable KAYLAH, SAVANNA M Referring Unavailable ROSS, CHAYITO E Primary Care Unavailable ROSS, CHAYITO E Primary Care Unavailable JUANCHO ALDRIDGE Referring Unavailable ROSS, CHAYITO E Primary Care Unavailable JUANCHO ALDRIDGE Referring Unavailable JUANCHO ALDRIDGE Attending Unavailable BRINDA DELATORRE Attending Unavailable JUANCHO ALDRIDGE Referring Unavailable ROSS, CHAYITO E Primary Care Unavailable KAYLAH, SAVANNA M Referring Unavailable ROSS, CHAYITO E Primary Care Unavailable ROSS, CHAYITO E Primary Care Unavailable JUANCHO ALDRIDGE Referring Unavailable ROSS, CHAYITO E Primary Care Unavailable KAYLAH, SAVANNA M Referring Unavailable JUANCHO ALDRIDGE Attending Unavailable ROSS, CHAYITO E Primary Care Unavailable KAYLAH, SAVANNA M Referring Unavailable ROSS, CHAYITO E Primary Care Unavailable JUANCHO ALDRIDGE Referring Unavailable ROSS, CHAYITO E Primary Care Unavailable ROSS, CHAYITO E Primary Care Unavailable KAYLAH, SAVANNA M Referring Unavailable BRINDA DELATORRE Attending Unavailable KAYLAH, SAVANNA M Referring Unavailable ROSS, CHAYITO E Primary Care Unavailable ROSS, CHAYITO E Primary Care Unavailable BRINDA DELATORRE Attending Unavailable KAYLAH, SAVANNA M Referring Unavailable ROSS, CHAYITO E Primary Care Unavailable ROSS, CHAYITO E Primary Care Unavailable JUANCHO ALDRIDGE Referring Unavailable RAFAELA MOROCHO Referring Unavailable ROSS, CHAYITO E Primary Care Unavailable ROSS, CHAYITO E Primary Care Unavailable KAYLAH, SAVANNA M Referring Unavailable ROSS, CHAYITO E Primary Care Unavailable KAYLAH, SAVANNA M Referring Unavailable JUANCHO ALDRIDGE Attending Unavailable ROSS, CHAYITO E Primary Care Unavailable JUANCHO ALDRIDGE Referring Unavailable ROSS, CHAYITO E Primary Care Unavailable KAYLAH, SAVANNA M Referring Unavailable ROSS, CHAYITO E Primary Care Unavailable BRINDA DELATORRE Attending Unavailable KAYLAH, SAVANNA M Referring Unavailable ROSS, CHAYITO E Primary Care Unavailable KAYLAH, SAVANNA M Referring Unavailable ROSS, CHAYITO E Primary Care Unavailable YARED CHRISTOPHER E Attending Unavailable WEE, CHRISTOPHER E Referring Unavailable ROSS, CHAYITO E Primary Care Unavailable WEE, CHRISTOPHER E Referring Unavailable JUANCHO ALDRIDGE Attending Unavailable ROSS, CHAYITO E Primary Care Unavailable ROSS, CHAYITO E Primary Care Unavailable JAJA VALLEJO Attending Unavailable JAJA VALLEJO Referring Unavailable JUANCHO ALDRIDGE Attending Unavailable ROSS, CHAYITO E Primary Care Unavailable KAYLAH, SAVANNA M Referring Unavailable JUANCHO ALDRIDGE Attending Unavailable ROSS, CHAYITO E Primary Care Unavailable NINA SMITH Primary Care Unavailable ROSS, CHAYITO E Primary Care Unavailable KAYLAH, SAVANNA M Attending Unavailable ROSS, CHAYITO E Primary Care Unavailable ROSS, CHAYITO E Primary Care Unavailable KAYLAH, SAVANNA M Referring Unavailable ROSS, CHAYITO E Primary Care Unavailable JUANCHO ALDRIDGE Referring Unavailable WEE, CHRISTOPHER E Referring Unavailable ROSS, CHAYITO E Primary Care Unavailable ROSS, CHAYITO E Primary Care Unavailable JUANCHO ALDRIDGE Referring Unavailable ROSS, CHAYITO E Primary Care Unavailable JUANCHO ALDRIDGE Referring Unavailable ROSS, CHAYITO E Primary Care Unavailable JUANCHO ALDRIDGE Referring Unavailable Lashell ESPARZA Attending Unavailable ROSS, CHAYITO E Primary Care Unavailable ROSS, CHAYITO E Primary Care Unavailable KAYLAH, SAVANNA M Referring Unavailable ROSS, CHAYITO E Primary Care Unavailable ROSS, CHAYITO E Primary Care Unavailable KAYLAH, SAVANNA M Referring Unavailable KAYLAH, SAVANNA M Referring Unavailable ROSS, CHAYITO E Primary Care Unavailable JUANCHO ALDRIDGE Attending Unavailable KAYLAH, SAVANNA M Referring Unavailable ROSS, CHAYITO E Primary Care Unavailable RAFAELA MOROCHO Attending Unavailable ROSS, CHAYITO E Primary Care Unavailable ROSS, CHAYITO E Primary Care Unavailable JUANCHO ALDRIDGE Referring Unavailable ROSS, CHAYITO E Primary Care Unavailable ROSS, CHAYITO E Primary Care Unavailable JUANCHO ALDRIDGE Attending Unavailable ROSS, CHAYITO E Primary Care Unavailable JUANCHO ALDRIDGE Referring Unavailable KAJALE, CHRISTCHARLESER E Attending Unavailable ROSS, CHAYITO E Primary Care Unavailable JUANCHO ALDRIDGE Referring Unavailable KAYLAH, SAVANNA M Referring Unavailable ROSS, CHAYITO E Primary Care Unavailable Ross, Chayito E. Attending Unavailable Ross, Chayito E. Attending Unavailable Ross, Chayito E. Attending Unavailable Ross, Chayito E. Attending Unavailable Ross, Chayito E. Attending Unavailable Chayito Duarte Attending Unavailable Isa MULLER Attending Unavailable Isa MULLER Attending Unavailable Isa MULLER Attending Unavailable Chayito Duarte Attending Unavailable Chayito Duarte Attending Unavailable Chayito Duarte Attending Unavailable EDUARDO Mathews Attending Unavailable Chayito Duarte Attending Unavailable EDUARDO Mathews Attending Unavailable Allergies Allergy Classification Reported Allergen(s) Allergy Type Date of Onset Reaction(s) Facility (1 source) No Known Medication Allergies; Translations: [No Known Medication Allergies] Propensity to adverse reactions (disorder) [facility] Repository Medications Current Medications Medication Drug Class(es) Dates Sig (Normalized) Sig (Original) abiraterone acetate 250 mg oral tablet (20 sources) Cytochrome P450 17A1 Inhibitor Start: 10-19-2022 abiraterone (Zytiga) 250 MG chemo tablet Take 1,000 mg by mouth. 0 11/29/2022 Active Comment on above: Take 4 tablets by [facility] once daily. [id number] 200 actuat albuterol 0.09 mg/actuat metered dose inhaler (2 sources) beta2-Adrenergic Agonist Start: 07-19-2022 take 2 puff(s) by mouth every six hours as needed for wheezing albuterol HFA 90 mcg/act inhaler INHALE 2 PUFFS BY MOUTH EVERY 6 HOURS NEEDED FOR SHORTNESS OF BREATH/WHEEZING 0 07/19/2022 Active bicalutamide 50 mg oral tablet (20 sources) Androgen Receptor Inhibitor Start: 12-14-2021 End: 10-26-2022 bicalutamide (Casodex) 50 MG chemo tablet Comment on above: Take 50 mg by mouth. Calcium (2 sources) Phosphate Binder, Calcium Start: 11-29-2022 take 1 tablet by mouth twice daily Calcium 600 D Tab tab(s), Oral, BID, Refill(s) 0 Start Date: 11/29/22 Status: Ordered ciprofloxacin 500 mg oral tablet (6 sources) Quinolone Antimicrobial Start: 12-01-2021 End: 12-08-2021 take 1 tablet by mouth every twelve hours Cipro 500 mg Tab 500 mg = 1 tab(s), Oral, q12hr, Called to [facility], X 7 day(s), # 14 tab(s), Refills(s) 0, called to pharmacy (Rx) Start Date: 12/01/21 Stop Date: 12/08/21 Status: Ordered denosumab (4 sources) RANK Ligand Inhibitor Start: 11-29-2022 DENOSUMAB SC See Instructions, inject sub q every 3 months for bone cancer, Refills(s) 0 0 11/29/2022 Active Start: 11-29-2022 denosumab See Instructions, inject sub q every 3 months for bone cancer, Refills(s) 0 Start Date: 11/29/22 Status: Ordered Start: 11-29-2022 denosumab SubC utaneous, Refills(s) 0 Start Date: 11/29/22 Status: Ordered enzalutamide 80 mg oral tablet (20 sources) Androgen Receptor Inhibitor Start: 06-04-2022 take 1 mg by mouth once daily Xtandi 80 mg oral tablet mg tab(s), Oral, Daily, Refills(s) 0 Start Date: 06/04/22 Status: Ordered Start: 04-13-2022 End: 2022 take 2 tablets by mouth once daily enzalutamide (XTANDI) 80 mg tablet Take 2 tablets (160 mg) by mouth once daily. 60 tablet 11 07/06/2022 10/26/2022 Discontinued Comment on above: Take 2 tablets (160 mg) by mouth once daily. Take 160 mg by mouth once daily. Handicap Placard, 5 years. (1 source) Start: 04-26-20 Handicap Placard, 5 years. Handicap Placard, 5 years., See Instructions, 1 EA, 0, Handicap Placard, 5 years., Supply, 173, cm, 04/26/23 15:30:00 EST, Height/Length Dosing, 73.1, kg, 04/26/23 15:30:00 EST, Weight Dosing Start Date: 04/26/23 Status: Ordered Lift chair (1 source) Start: 04-19-20 Lift chair Lift chair, See Instructions, 1 EA, 0, Pt needs a lift chair to help with ambulation., Supply, 173, cm, 04/19/23 13:33:00 EST, Height/Length Dosing, 69.6, kg, 04/19/23 13:33:00 EST, Weight Dosing Start Date: 04/19/23 Status: Ordered minocycline 100 mg oral capsule (2 sources) Tetracycline-class Drug Start: 04-08-20 take 1 capsule by mouth twice daily minocycline 100 MG capsule Indications: Infection following a procedure, superficial incisional surgical site, initial encounter Take 1 capsule, by mouth, bid x 7 days 14 capsule 0 04/08/2023 Active mirtazapine 15 mg oral tablet (6 sources) Start: 12-08-19 End: 01-08-20 mirtazapine 15 mg Tab Refills(s) 0 Start Date: 12/14/21 Status: Ordered Comment on above: TAKE 1 TABLET BY LUANN TH EVERYDAY AT BEDTIME [facility] Prescription (1 source) Start: 01-06-20 [facility] Prescription for 6 months Start Date: 01/05/23 Status: Ordered naproxen 200 mg oral tablet (20 sources) Nonsteroidal Anti-inflammatory Drug Start: 01-06-20 End: 01-27-20 Naproxen Sodium (ALEVE PO) Take 200 mg by mouth. 0 01/05/2023 Active naproxen sodium (ALEVE ORAL) Take by mouth. 0 Active Comment on above: Take by mouth. Take 200 mg by mouth . ondansetron 8 mg oral tablet (20 sources) Serotonin-3 Receptor Antagonist Start: 3 take 1 tablet by mouth every eight hours as needed ondansetron (Zofran) 8 MG tablet Take 8 mg by mouth every 8 (eight) hours if needed. 0 02/04/2023 Active Comment on above: Take 1 tablet by luann th every 8 hours as needed for nausea/vomiting. tamsulosin hydrochloride 0.4 mg oral capsule (20 sources) alpha-Adrenergic Jerome Start: 2 take 1 capsule by mouth every twenty-four hours tamsulosin (Flomax) 0.4 MG 24 hr capsule Take 0.4 mg by mouth. 0 12/15/2021 Active Start: 09-08-2021 take 1 capsule by mo [facility] once daily tamsulosin 0.4 mg Cap 0.4 mg = 1 cap(s), Oral, Daily, # 90 cap(s), Refills(s) 3, Pharmacy: [facility], 175, cm, 03/30/21 10:02:00 EST, Height/Length Dosing, 71.7, kg, 03/30/21 10:02:00 EST, Weight Dosing Start Date: 09/08/21 Status: Ordered Start: 05-23-2017 tamsulosin (FL OMAX) 0.4 mg Take by mouth twice daily. 0 05/23/2017 Active Comment on above: Take by mouth twice daily. Completed/Discontinued Medications Medication Drug Class(es) Dates Sig (Normalized) Sig (Original) acetaminophen 325 mg / HYDROcodone bitartrate 5 mg oral tablet (20 sources) Opioid Agonist Start: 04-19-2023 End: 08-09-2023 take 1 tablet by mouth every four hours as needed for pain HYDROcodone-acetami nophen (NORCO) 5-325 mg per tablet Indications: Neoplasm related pain (acute) (chronic) Take 1 tablet by mouth every 4 hours as needed for pain. 50 tablet 0 04/29/2023 08/09/2023 Discontinued (Discontinued by Patient) Start: 12-01-2021 take 1 tablet by luann th once, then take 1 tablet by mouth every hour [place] 325 mg-7.5 mg oral tablet 1 tab(s), Oral, Once, 1 tab(s), Refill(s) 0, Take 1 hour prior to procedure, [id number], 175, cm, 12/01/21 9:46:00 EDT, Height/Length Dosing, 62, kg, 12/01/21 9:46:00 EDT, Weight Dosing Start Date: 12/01/21 Status: Ordered Comment on above: Take 1 tablet by luann th every 4 hours as needed for pain. aspirin 81 mg delayed release oral tablet (11 sources) Platelet Aggregation Inhibitor, Nonsteroidal Anti-inflammatory Drug Start: 06-07-2023 End: 08-09-2023 take 1 tablet by mouth once aspirin, enteric coated (ASPIRIN, ENTERIC COATED) 81 mg EC tablet Take 1 tablet by mouth every afternoon. 0 06/07/2023 08/09/2023 Discontinued (Discontinued by another Health Care Provider) Comment on above: Take 1 tablet by luann th every afternoon. CALCIUM-VITAMIN D3 ORAL (20 sources) Start: 12-15-2021 take 1 tablet by mouth once daily CALCIUM-VITAMIN D3 ORAL Take 1 tablet by mouth once daily. 0 12/15/2021 Active Start: 12-15-2021 CALCIUM-VITAMI N D3 ORAL Comment on above: Take 1 tablet by luann once daily. cephalexin 500 mg oral capsule (20 sources) Cephalosporin Antibacterial Start: 09-06-2023 cephALEXin (KEFLEX) 500 mg capsule Start: 03-23-2023 End: 03-31-2023 take 1 capsule by mouth twice daily cephalexin (Keflex) 500 MG capsule Indications: Squamous cell carcinoma of skin of left upper limb, including shoulder Take 1 capsule, by mouth, bid x 7 days 14 capsule 0 03/23/2023 Active Start: 01-26-2023 End: 03-17-2023 take 1 capsule by mouth every twelve hours cephALEXin (KEFLEX) 500 mg capsule Take 1 capsule by mouth every 12 (twelve) hours. Has 5 days left 0 01/26/2023 03/17/2023 Discontinued (Course of therapy completed) Comment on above: Take 1 capsule by mo [facility] every 12 (twelve) hours. Has 5 days left dexamethasone 1 mg oral tablet (3 sources) Corticosteroid Start: End: take 1 tablet by mouth once daily at mealtime dexAMETHasone (DECADRON) 1 mg tablet TAKE 1 TABLET BY MOUTH EVERY DAY IN THE MORNING WITH FOOD 0 12/15/2021 01/07/2022 Discontinued Comment on above: TAKE 1 TABLET BY LUANN EVERY DAY IN THE MORNING WITH FOOD levETIRAcetam 500 mg oral tablet (16 sources) Start: take 1 tablet by mouth every twelve hours levETIRAcetam (KEPPRA) 500 mg tablet Take 1 tablet by mouth every 12 hours. 0 06/07/2023 Active Start: 06-07-2023 take 1 tablet by luann twice daily Levetiracetam (Keppra) 500 mg tablet Active 500 MG PO Twice daily June 07, 2023 12:00am Comment on above: Take 1 tablet by luann every 12 hours. predniSONE 10 mg oral tablet (20 sources) Start: End: take 1 tablet by mouth once daily predniSONE (DELTASONE) 10 mg tablet Take 1 tablet by mouth once daily. 90 tablet 3 02/10/2023 03/31/2023 Discontinued Comment on above: Take 1 tablet by luann th once daily. prochlorperazine 10 mg oral tablet (20 sources) Phenothiazine Start: End: 024 take 1 tablet by mouth every six hours as needed prochlorperazine (COMPAZINE) 10 mg tablet Take 1 tablet by mouth every 6 hours as needed. 100 tablet 1 02/04/2023 08/09/2023 Discontinued (Discontinued by Patient) Comment on above: Take 1 tablet by luann th every 6 hours as needed. Problems Active Problems Problem Classification Problem Date Documented Da te Episodic/Chronic Cancer of prostate (20 sources) Malignant neoplasm of prostate; Translations: [Malignant tumor of prostate] Onset: 12-14-2021 Chronic Chronic obstructive pulmonary disease and bronchiectasis (1 source) Bronchitis 05-17-2023 Episodic Coagulation and hemorrhagic disorders (20 sources) Platelet count below reference range; Translations: [Thrombocytopenia, unspecified] Onset: 03-17-2023 03-17-2023 Chronic Complications of surgical procedures or medical care (20 sources) Anemia due to antineoplastic chemotherapy; 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] Onset: 03-17-2023 03-17-2023 Chronic Deficiency and other anemia (2 sources) Anemia; Translations: [Anemia, unspecified] 02-10-2023 Episodic Disorders of lipid metabolism (8 sources) Hyperlipidemia; Translations: [Mixed hyperlipidemia] 05-08-2019 Chronic Epilepsy; convulsions (3 sources) Seizure disorder; Translations: [Epilepsy, unspecified, not intractable, without status epilepticus] 08-09-2023 Chronic Epilepsy; convulsions (3 sources) Neurological finding; Translations: [Unspecified convulsions] Onset: 06-06-2023 06-06-2023 Episodic Genitourinary symptoms and ill-defined conditions (20 sources) Nelson hematuria; Translations: [Nocturia] Onset: 11-26-2021 05-08-2019 Episodic Hyperplasia of prostate (20 sources) Benign prostatic hypertrophy with outflow obstruction; Translations: [Benign prostatic hyperplasia with lower urinary tract symptoms] Onset: 12-01-2021 Chronic Other aftercare (1 source) Other predatory animal exterminator (current) drug therapy; Translations: [OTH RETIREMENT CURRENT DRUG THERAPY] Onset: 07-20-2022 Episodic Other connective tissue disease (1 source) Pain in buttock; Translations: [Myalgia, other site] 04-26-2023 Episodic Other diseases of kidney and ureters (1 source) Urinary tract obstruction; Translations: [Other obstructive and reflux uropathy] Onset: 12-01-2021 Episodic Other ear and sense organ disorders (2 sources) Sensorineural hearing loss, bilateral; Translations: [Sensorineural hearing loss, bilateral] 06-29-2023 Chronic Other gastrointestinal disorders (7 sources) Prostate mass 07-11-2020 Episodic Other lower respiratory disease (1 source) Cough 05-17-2023 Episodic Other male genital disorders (1 source) Edema of penis 04-26-2023 Chronic Other nervous system disorders (10 sources) Pain due to neoplastic disease; Translations: [Neoplasm related pain (acute) (chronic)] 02-25-2023 Chronic Other screening for suspected conditions (not mental disorders or infectious disease) (16 sources) Raised prostate specific antigen; Translations: [Elevated prostate specific antigen [PSA]] Onset: 12-01-2021 Episodic Other upper respiratory infections (1 source) Acute upper respiratory infection, unspecified; Translations: [ACUTE UP RESPIRATORY INFECTION UNS] Onset: 07-20-2022 Episodic Screening and history of mental health and substance abuse codes (9 sources) Ex-smoker; Translations: [Personal history of nicotine dependence] Onset: 07-20-2022 05-08-2019 Episodic Secondary malignancies (20 sources) Secondary malignant neoplasm of bone; Translations: [Secondary malignant neoplasm of bone] Onset: 12-24-2021 Chronic Secondary malignancies (3 sources) Secondary malignant neoplasm of bone; 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] Onset: 07-20-2022 Chronic Skin and subcutaneous tissue infections (2 sources) Abscess; Translations: [Infection of skin] 01-26-2023 Episodic Transient cerebral ischemia (3 sources) Transient cerebral ischemia; Translations: [Transient cerebral ischemic attack, unspecified] Onset: 06-06-2023 06-07-2023 Chronic Unclassified (2 sources) COUGH, UNSPECIFIED; Translations: [COUGH, UNSPECIFIED] Onset: 07-20-2022 Unclassified (1 source) CONTACT W/AND (SUSP) EXPOS COVID-19; Translations: [CONTACT W/AND (SUSP) EXPOS COVID-19] Onset: 07-20-2022 Unclassified (1 source) PERSONAL HISTORY OF COVID-19; Translations: [PERSONAL HISTORY OF COVID-19] Onset: 12-01-2021 Viral infection (1 source) COVID-19; Translations: [COVID-19] Onset: 11-26-2021 Past or Other Problems Problem Classification Problem Date Documented Da te Episodic/Chronic Cancer of prostate (1 source) Personal history of malignant neoplasm of prostate; Translations: [PERSONAL HX MALIG NEOPLASM PROSTATE] Onset: 2 Episodic E Codes: Adverse effects of medical drugs (1 source) Adverse effect of antineoplastic and immunosuppressive drugs, initial encounter; Translations: [Anemia due to antineoplastic chemotherapy] Onset: 3 Episodic Nausea and vomiting (3 sources) Vomiting, unspecified; Translations: [VOMITING UNSPECIFIED] Onset: 2 Episodic Other bone disease and musculoskeletal deformities (1 source) Disorder of bone, unspecified; Translations: [DISORDER OF BONE UNSPECIFIED] Onset: 2 Episodic Other connective tissue disease (1 source) Myalgia, other site; Translations: [Left buttock pain] Onset: 3 Episodic Other gastrointestinal disorders (1 source) Diarrhea, unspecified; Translations: [DIARRHEA UNSPECIFIED] Onset: 2 Episodic Other male genital disorders (4 sources) Disorder of prostate, unspecified; Translations: [DISORDER OF PROSTATE UNSPECIFIED] Onset: 2 Episodic Other nutritional; endocrine; and metabolic disorders (1 source) Abnormal weight loss; Translations: [ABNORMAL WEIGHT LOSS] Onset: 2 Episodic Unclassified (1 source) COUGH, UNSPECIFIED; Translations: [COUGH, UNSPECIFIED] Onset: 3 Results Test Name Value Interpretation Reference Range [facility]23 CNPN Normal [facility] Consultation Noteon 09-09-19 24 Consultation Note [id number] Normal [facility] Ambulatory Visit Summaryon 0 09-08-2023 Ambulatory Visit Summary KARIN MART :1940 Visit Date:09/08/2023 Ambulatory Visit Instructions Your Diagnosis Cellulitis Skin infection Non-smoker Your Care Team Attending Physician - Chayito Duarte MD Primary Care Physician - Chayito Duarte MD. This Is Your Medications List Misc Prescription Misc Prescription (Handicap Wilmer, 5 years.) Misc Prescription (Lift chair) abiraterone (abiraterone 250 mg oral tablet) acetaminophen-hydrocodone (acetaminophen-hydrocodon e 325 mg-5 mg oral tablet) calcium-vitamin D (Calcium 600 D Tab) denosumab levetiracetam (levetiracetam 500 mg Tab) levetiracetam (levetiracetam 500 mg Tab) tamsulosin (tamsulosin 0.4 mg Cap) Procedures Performed Transrectal needle biopsy of prostate (12/02/2021), Transrectal biopsy of prostate using ultrasound (US) guidance (08/22/2018), Transrectal biopsy of prostate using ultrasound (US) guidance (04/09/2009), Transrectal biopsy of prostate using ultrasound (US) guidance (02/18/2009), Angioplasty, Cataract extraction and insertion of intraocular lens, Colonoscopy, Tonsillectomy, Vasectomy. Discharge Vitals Heart Rate (Peripheral) 73 Blood Pressure 144/70 Height 175 cm Height 69 in Weight 71.25 kg Weight 156.75 lb BMI 23.27 What to do next Scheduled Follow-Up Appointments Tuesday 10:45 AM EDT With: RENZO MCGARRY, Isa Son Where: [facility] Invalid Interpretation Code [address] [place] [address]- \.br\ Tuesday 9:30 AM EDT \.br\ With:\.br\ Where: [facility] CBC W Auto Differential pane l (Bld)on 09-08-2023 Anisocytosis Ql (Bld) Present Normal [facility] Comment on above: Order Comment: Speci men Type: BLOOD SPECIMENOrdering Facility: [facility] Address: [address] [place] [address] Performed By: #### 5 7021-8 ####[facility] LABCLIA [id number] [place], [place] [address] LABCLIA [id number] [place] [address] [place] Basophils (Bld) [#/Vol] 0.01 10*3/uL Normal <0.11 [facility] Comment on above: Order Comment: Speci men Type: BLOOD SPECIMENOrdering Facility: [facility] Address: [address] [place] [address] Performed By: #### 5 7021-8 ####[facility] LABCLIA [id number] [address] LABCLIA [id number] [place] [address] [place] Basophils/100 WBC (Bld) 0.5 % Normal [facility] Comment on above: Order Comment: Speci men Type: BLOOD SPECIMENOrdering Facility: [facility] Address: [address] [place] [address] Performed By: #### 5 7021-8 ####[facility] LABCLIA [id number] [address] LABCLIA [id number] [place] [address] [place] Dacrocytes LM Ql (Bld) Few Normal [facility] Comment on above: Order Comment: Speci men Type: BLOOD SPECIMENOrdering Facility: [facility] Address: [address] [place] [address] Performed By: #### 5 7021-8 ####[facility] LABCLIA [id number] [address] LABCLIA [id number] [place] [address] [place] Differential cell count method Nom (Bld) Manual Normal [facility] Comment on above: Order Comment: Speci men Type: BLOOD SPECIMENOrdering Facility: [facility] Address: [address] [place] [address] Performed By: #### 5 7021-8 ####[facility] LABCLIA [id number] [address] LABCLIA [id number] [place] [address] [place] Eosinophils (Bld) [#/Vol] 0.01 10*3/uL Normal <0.46 [facility] Comment on above: Order Comment: Speci men Type: BLOOD SPECIMENOrdering Facility: [facility] Address: [address] [place] [address] Performed By: #### 5 7021-8 ####[facility] LABCLIA [id number] [address] LABCLIA [id number] [place] [address] [place] Eosinophils/100 WBC (Bld) 0.9 % Normal [facility] Comment on above: Order Comment: Speci men Type: BLOOD SPECIMENOrdering Facility: [facility] Address: [address] [place] [address] Performed By: #### 5 7021-8 ####[facility] LABCLIA [id number] [address] LABCLIA [id number] [place] [address] [place] Erythrocyte distribution width (RBC) [Ratio] 15.0 % Normal 11.5-15.0 [facility] Comment on above: Order Comment: Speci men Type: BLOOD SPECIMENOrdering Facility: [facility] Address: [address] [place] [address] Performed By: #### 5 7021-8 ####[facility] LABCLIA [id number] [address] LABCLIA [id number] [place] [address] [place] Hematocrit (Bld) [Volume fraction] 31.7 % Low 39.0-51.0 [facility] Comment on above: Order Comment: Speci men Type: BLOOD SPECIMENOrdering Facility: [facility] Address: [address] [place] [address] Performed By: #### 5 7021-8 ####[facility] LABCLIA [id number] [address] LABCLIA [id number] [place] [address] [place] Hemoglobin (Bld) [Mass/Vol] 10.3 g/dL Low 13.0-17.0 [facility] Comment on above: Order Comment: Speci men Type: BLOOD SPECIMENOrdering Facility: [facility] Address: [address] [place] [address] Performed By: #### 5 7021-8 ####[facility] LABCLIA [id number] [address] LABCLIA [id number] [place] [address] [place] Lymphocytes (Bld) [#/Vol] 0.18 10*3/uL Low 1.00-4.00 [facility] Comment on above: Order Comment: Speci men Type: BLOOD SPECIMENOrdering Facility: [facility] Address: [address] [place] [address] Performed By: #### 5 7021-8 ####[facility] LABCLIA [id number] [address] LABCLIA [id number] [place] [address] [place] Lymphocytes/100 WBC (Bld) 11.2 % Normal [facility] Comment on above: Order Comment: Speci men Type: BLOOD SPECIMENOrdering Facility: [facility] Address: [address] [place] [address] Performed By: #### 5 7021-8 ####[facility] LABCLIA [id number] [address] LABCLIA [id number] [place] [address] [place] MCH (RBC) [Entitic mass] 31.2 pg Normal 26.0-34.0 [facility] Comment on above: Order Comment: Speci men Type: BLOOD SPECIMENOrdering Facility: [facility] Address: [address] [place] [address] Performed By: #### 5 7021-8 ####[facility] LABCLIA [id number] [address] LABCLIA [id number] [place] [address] [place] MCHC (RBC) [Mass/Vol] 32.5 g/dL Normal 30.5-36.[address] [facility] Comment on above: Order Comment: Speci men Type: BLOOD SPECIMENOrdering Facility: [facility] Address: [address] [place] [address] Performed By: #### 5 7021-8 ####[facility] LABCLIA [id number] [address] LABCLIA [id number] [place] [address] [place] MCV (RBC) [Entitic vol] 96.1 fL Normal 80.0-100.0 [facility] Comment on above: Order Comment: Speci men Type: BLOOD SPECIMENOrdering Facility: [facility] Address: [address] [place] [address] Performed By: #### 5 7021-8 ####[facility] LABCLIA [id number] [address] LABCLIA [id number] [place] [address] [place] Monocytes (Bld) [#/Vol] 0.17 10*3/uL Normal <0.87 [facility] Comment on above: Order Comment: Speci men Type: BLOOD SPECIMENOrdering Facility: [facility] Address: [address] [place] [address] Performed By: #### 5 7021-8 ####[facility] LABCLIA [id number] [address] LABCLIA [id number] [place] [address] [place] Monocytes/100 WBC (Bld) 10.7 % Normal [facility] Comment on above: Order Comment: Speci men Type: BLOOD SPECIMENOrdering Facility: [facility] Address: [address] [place] [address] Performed By: #### 5 7021-8 ####[facility] LABCLIA [id number] [address] LABCLIA [id number] [place] [address] [place] MYELO% 0.5 % Normal [facility] Comment on above: Order Comment: Speci men Type: BLOOD SPECIMENOrdering Facility: [facility] Address: [address] [place] [address] Performed By: #### 5 7021-8 ####[facility] LABCLIA [id number] [address] LABCLIA [id number] [place] [address] [place] Neutrophils (Bld) [#/Vol] 1.23 10*3/uL Low 1.45-7.50 [facility] Comment on above: Order Comment: Speci men Type: BLOOD SPECIMENOrdering Facility: [facility] Address: [address] [place] [address] Performed By: #### 5 7021-8 ####[facility] LABCLIA [id number] [place] [facility] LABCLIA [id number] [place] [address] [place] Neutrophils.hypersegm ented LM Ql (Bld) Occasional Normal [facility] Comment on above: Order Comment: Speci men Type: BLOOD SPECIMENOrdering Facility: [facility] Address: [address] [place] [address] Performed By: #### 5 7021-8 ####[facility] LABCLIA [id number] [address] LABCLIA [id number] [place] [address] [place] Neutrophils/100 WBC (Bld) 76.2 % Normal [facility] Comment on above: Order Comment: Speci men Type: BLOOD SPECIMENOrdering Facility: [facility] Address: [address] [place] [address] Performed By: #### 5 7021-8 ####[facility] LABCLIA [id number] [address] LABCLIA [id number] [place] [address] [place] Nucleated RBC (Bld) [#/Vol] 0.03 10*3/uL High <0.01 [facility] Comment on above: Order Comment: Speci men Type: BLOOD SPECIMENOrdering Facility: [facility] Address: [address] [place] [address] Performed By: #### 5 7021-8 ####[facility] LABCLIA [id number] [address] LABCLIA [id number] [place] [address] [place] Nucleated RBC/100 WBC (Bld) [Ratio] 1.9 /100 WBC Normal [facility] Comment on above: Order Comment: Speci men Type: BLOOD SPECIMENOrdering Facility: [facility] Address: [address] [place] [address] Performed By: #### 5 7021-8 ####[facility] LABCLIA [id number] [address] LABCLIA [id number] [place] [address] [place] Ovalocytes LM Ql (Bld) Few Normal [facility] Comment on above: Order Comment: Speci men Type: BLOOD SPECIMENOrdering Facility: [facility] Address: [address] [place] [address] Performed By: #### 5 7021-8 ####[facility] LABCLIA [id number] [address] LABCLIA [id number] [place] [address] [place] Platelet mean volume (Bld) [Entitic vol] 8.5 fL Low 9.0-12.7 [facility] Comment on above: Order Comment: Speci men Type: BLOOD SPECIMENOrdering Facility: [facility] Address: [address] [place] [address] Performed By: #### 5 7021-8 ####[facility] LABCLIA [id number] [address] LABCLIA [id number] [place] [address] [place] Platelets (Bld) [#/Vol] 81 10*3/uL Low 150-400 [facility] Comment on above: Order Comment: Speci men Type: BLOOD SPECIMENOrdering Facility: [facility] Address: [address] [place] [address] Result Comment: No c lot detected. Performed By: #### 5 7021-8 ####[facility] LABCLIA [id number] [address] LABCLIA [id number] [place] [address] [place] Platelets Estimate (Bld) [#/Vol] Decreased Normal [facility] Comment on above: Order Comment: Speci men Type: BLOOD SPECIMENOrdering Facility: [facility] Address: [address] [place] [address] Performed By: #### 5 7021-8 ####[facility] LABCLIA [id number] [address] LABCLIA [id number] [place] [address] [place] Polychromasia LM Ql (Bld) Slight Normal [facility] Comment on above: Order Comment: Speci men Type: BLOOD SPECIMENOrdering Facility: [facility] Address: [address] [place] [address] Performed By: #### 5 7021-8 ####[facility] LABCLIA [id number] [address] LABCLIA [id number] [place] [address] [place] RBC (Bld) [#/Vol] 3.30 10*6/uL Low 4.20-6.00 [facility] Comment on above: Order Comment: Speci men Type: BLOOD SPECIMENOrdering Facility: [facility] Address: [address] [place] [address] Performed By: #### 5 7021-8 ####[facility] LABCLIA [id number] [address] LABCLIA [id number] [place] [address] [place] RBC FRAGMENTS Few Abnormal None Seen [facility] Comment on above: Order Comment: Speci men Type: BLOOD SPECIMENOrdering Facility: [facility] Address: [address] [place] [address] Performed By: #### 5 7021-8 ####[facility] LABCLIA [id number] [address] LABCLIA [id number] [place] [address] [place] RED CELL MORPH Reviewed: see result s of individual morphologies Normal [facility] Comment on above: Order Comment: Speci men Type: BLOOD SPECIMENOrdering Facility: [facility] Address: [address] [place] [address] Performed By: #### 5 7021-8 ####[facility] LABCLIA [id number] [address] LABCLIA [id number] [place] [address] [place] SPHEROCYTES Few Normal [facility] Comment on above: Order Comment: Speci men Type: BLOOD SPECIMENOrdering Facility: [facility] Address: [address] [place] [address] Performed By: #### 5 7021-8 ####[facility] LABCLIA [id number] [address] LABCLIA [id number] [place] [address] [place] WBC (Bld) [#/Vol] 1.62 10*3/uL Low 3.70-11.00 [facility] Comment on above: Order Comment: Speci men Type: BLOOD SPECIMENOrdering Facility: [facility] Address: [address] [place] [address] Result Comment: No c lot detected. Performed By: #### 5 7021-8 ####[facility] LABCLIA [id number] [address] LABCLIA [id number] [place] [address] [place] WBC Left Shift Ql (Bld) Present Normal [facility] Comment on above: Order Comment: Speci men Type: BLOOD SPECIMENOrdering Facility: [facility] Address: [address] [place] [address] Performed By: #### 5 7021-8 ####[facility] LABCLIA [id number] [place], [place] [address] LABCLIA [id number] [address] [address] [place] CNOVSPon 09-08-2023 CNOVSP Normal [facility] metabolic 2000 panelon 09-08-2023 Albumin [Mass/Vol] 4.0 g/dL Normal 3.9-4.[address] [facility] Comment on above: Order Comment: Speci men Type: BLOOD SPECIMENOrdering Facility: [facility] Address: [address] [place] [address] Performed By: #### 2 4323-8 ####[facility] LABCLIA [id number] [place] [address] ALP [Catalytic activity/Vol] 960 U/L High 38-113 [facility] Comment on above: Order Comment: Speci men Type: BLOOD SPECIMENOrdering Facility: [facility] Address: [address] [place] [address] Performed By: #### 2 4323-8 ####[facility] LABCLIA [id number] [place] [address] ALT [Catalytic activity/Vol] 72 U/L High 10-54 [facility] Comment on above: Order Comment: Speci men Type: BLOOD SPECIMENOrdering Facility: [facility] Address: [address] [place] [address] Performed By: #### 2 4323-8 ####[facility] LABCLIA [id number] [place] [address] Anion gap [Moles/Vol] 10 mmol/L Normal 9-[address] [facility] Comment on above: Order Comment: Speci men Type: BLOOD SPECIMENOrdering Facility: [facility] Address: [address] [place] [address] Performed By: #### 2 4323-8 ####[facility] LABCLIA [id number] [place] [address] AST [Catalytic activity/Vol] 93 U/L High 14-40 [facility] Comment on above: Order Comment: Speci men Type: BLOOD SPECIMENOrdering Facility: [facility] Address: [address] [place] [address] Performed By: #### 2 4323-8 ####[facility] LABCLIA [id number] [place] [address] Bilirubin [Mass/Vol] 0.5 mg/dL Normal 0.2-1.3 [facility] Comment on above: Order Comment: Speci men Type: BLOOD SPECIMENOrdering Facility: [facility] Address: [address] [place] [address] Performed By: #### 2 4323-8 ####[facility] LABCLIA [id number] [place] [address] Calcium [Mass/Vol] 9.4 mg/dL Normal 8.5-10.[address] [facility] Comment on above: Order Comment: Speci men Type: BLOOD SPECIMENOrdering Facility: [facility] Address: [address] [place] [address] Performed By: #### 2 4323-8 ####[facility] LABCLIA [id number] [place] [address] Chloride [Moles/Vol] 107 mmol/L High 97-105 [facility] Comment on above: Order Comment: Speci men Type: BLOOD SPECIMENOrdering Facility: [facility] Address: [address] [place] [address] Performed By: #### 2 4323-8 ####[facility] LABCLIA [id number] [place] [address] CO2 [Moles/Vol] 24 mmol/L Normal 22-30 [facility] Comment on above: Order Comment: Speci men Type: BLOOD SPECIMENOrdering Facility: [facility] Address: [address] [place] [address] Performed By: #### 2 4323-8 ####[facility] LABCLIA [id number] [place] [address] Creatinine [Mass/Vol] 0.88 mg/dL Normal 0.73-1.[address] [facility] Comment on above: Order Comment: Speci men Type: BLOOD SPECIMENOrdering Facility: [facility] Address: [address] [place] [address] Performed By: #### 2 4323-8 ####[facility] LABCLIA [id number] [place] [address] Creatinine and Glomerular filtration rate.predicted panel (S/P/Bld) 85 mL/min/1.73m??? Normal >=60 [facility] Comment on above: Order Comment: Speci men Type: BLOOD SPECIMENOrdering Facility: [facility] Address: [address] [place] [address] Result Comment: Christelle mated Glomerular Filtration Rate (eGFR) is calculated using the 2020 CKD-EPI creatinine equation. This equation utilizes serum creatinine, sex, and age as parameters. The creatinine assay has traceable calibration to isotope dilution-mass spectrometry. Refer to KDIGO guidelines for clinical interpretation. In patients with unstable renal function, e.g. those with acute kidney injury, the eGFR may not accurately reflect actual GFR. Performed By: #### 2 4323-8 ####[facility] LABCLIA [id number] [place] [address] Glucose [Mass/Vol] 127 mg/dL High 74-[address] [facility] Comment on above: Order Comment: Speci men Type: BLOOD SPECIMENOrdering Facility: [facility] Address: [address] [place] [address] Result Comment: The [place] [employer] Association (ADA) provides guidance for cutoff values for fasting glucose and random glucose. The ADA defines fasting as no caloric intake for at least 8 hours. Fasting plasma glucose results between 100 to 125 mg/dL indicate increased risk for diabetes (prediabetes).Fasting plasma glucose results greater than or equal to 126 mg/dL meet the criteria for diagnosis of diabetes. In the absence of unequivocal hyperglycemia, results should be confirmed by repeat testing. In a patient with classic symptoms of hyperglycemia or hyperglycemic crisis, random plasma glucose results greater than or equal to 200 mg/dL meet the criteria for diagnosis of diabetes.Reference: Standards of Medical Care in Diabetes 2016, [place] [employer]. Diabetes Care. 2016.39(Suppl 1). Performed By: #### 2 4323-8 ####[facility] LABCLIA [id number] [place] [address] Potassium [Moles/Vol] 4.7 mmol/L Normal 3.7-5.[address] [facility] Comment on above: Order Comment: Speci men Type: BLOOD SPECIMENOrdering Facility: [facility] Address: [address] [place] [address] Performed By: #### 2 4323-8 ####[facility] LABCLIA [id number] [place] [address] Protein [Mass/Vol] 6.6 g/dL Normal 6.3-8.[address] [facility] Comment on above: Order Comment: Speci men Type: BLOOD SPECIMENOrdering Facility: [facility] Address: [address] [place] [address] Performed By: #### 2 4323-8 ####[facility] LABCLIA [id number] [place] [address] Sodium [Moles/Vol] 141 mmol/L Normal 136-[address] [facility] Comment on above: Order Comment: Speci men Type: BLOOD SPECIMENOrdering Facility: [facility] Address: [address] [place] [address] Performed By: #### 2 4323-8 ####[facility] LABCLIA [id number] [place] [address] Urea nitrogen [Mass/Vol] 17 mg/dL Normal 9-24 [facility] Comment on above: Order Comment: Speci men Type: BLOOD SPECIMENOrdering Facility: [facility] Address: [address], [place] [address] Performed By: #### 2 4323-8 ####[facility] LABCLIA [id number] [place] [address] Family Medicine Office/Clini c Noteon 09-08-2023 Family Medicine Office/Clinic Note Chief Complaint recheck wound HPI Staff Karin is an 82 year old male presenting for 2 day follow up cellulitis left leg Keflex rxed 09/05 History of Present Illness - Here for follow up. - No improvement - Some change in the rash color and texture. Review of Systems PHQ Score Initial Depression Screen Score: 0 SCORE Physical Exam Vitals & Measurements HR: 73(Peripheral) BP: 144/70 SpO2: 97% HT: 69 in HT: 175 cm WT: 71.25 kg WT: 156.75 lb BMI: 23.27 2 inch area of purple skin with an elevated area of hyperkarotinic skin noted. Assessment/Plan Total time spent preparing for the encounter, evaluating and assessing the patient, documenting the visit, and ordering appropriate follow-up work was 30 minutes. 1. Cellulitis (L03.90: Cellulitis, unspecified) - Some changes, but no improvement. - Still on the keflex. - Discussed with a financial reporting consultant and she is concerned for cutaneous manifestation of cancer - Has a financial reporting consultant already. - Continue on Kelfex. - Discuss with Dr. Aldridge. - Will address if no improvement in 1 week. Ordered: Body Mass Index (BMI) documented 3008F Current tobacco non-user 1036F Depression Screening Negative 3352F Most recent diastolic blood pressure <80 mm Hg 3078F Most recent systolic blood pressure >= 140 mm Hg 3077F Patient screen for fall risk: no falls in last year or 1 fall with no injury in last year 1101F 2. Skin infection (L08.9: Local infection of the skin and subcutaneous tissue, unspecified) - As above Ordered: Body Mass Index (BMI) documented 3008F Current tobacco non-user 1036F Depression Screening Negative 3352F Most recent diastolic blood pressure <80 mm Hg 3078F Most recent systolic blood pressure >= 140 mm Hg 3077F Patient screen for fall risk: no falls in last year or 1 fall with no injury in last year 1101F 3. Non-smoker (Z78.9: Other specified health status) - Please continue to not smoke. Ordered: Body Mass Index (BMI) documented 3008F Current tobacco non-user 1036F Depression Screening Negative 3352F Most recent diastolic blood pressure <80 mm Hg 3078F Most recent systolic blood pressure >= 140 mm Hg 3077F Patient screen for fall risk: no falls in last year or 1 fall with no injury in last year 1101F Total time spent preparing for the encounter, evaluating and assessing the patient, documenting the visit, and ordering appropriate follow-up work was 30 minutes. Follow-up No qualifying data available Patient Education Cellulitis, Adult Problem List/Past Medical History Ongoing Anemia BPH (benign prostatic hyperplasia) Bronchitis Cancer related pain Cellulitis Cough Elevated PSA Ex-smoker Gross hematuria Hospital discharge follow-up Mixed hyperlipidemia Nocturia Penile edema Prostate cancer Prostate cancer metastatic to bone Seizure Skin infection Urgency of urination Historical No qualifying data Procedure/Surgical History Transrectal needle biopsy of prostate (12/02/2021), Transrectal biopsy of prostate using ultrasound (US) guidance (08/22/2018), Transrectal biopsy of prostate using ultrasound (US) guidance (04/09/2009), Transrectal biopsy of prostate using ultrasound (US) guidance (02/18/2009), Angioplasty, Cataract extraction and insertion of intraocular lens, Colonoscopy, Tonsillectomy, Vasectomy. Medications abiraterone 250 mg oral tablet, 1000 mg= 4 tab(s), Oral, Daily acetaminophen-hydrocodone 325 mg-5 mg oral tablet Calcium 600 D Tab, Oral, BID denosumab, See Instructions Handicap Placard, 5 years., See Instructions levetiracetam 500 mg Tab, See Instructions levetiracetam 500 mg Tab, 500 mg= 1 tab(s), Oral, BID Lift chair, See Instructions [facility] Prescription, 0 tamsulosin 0.4 mg Cap, 0.4 mg= 1 cap(s), Oral, BID, 3 refills Allergies No Known Medication Allergies Social History Alcohol Current, Beer, 1-2 times per month, 1.00 drinks/episode maximum. Household alcohol concerns: No., 01/05/2023 Tobacco Former smoker, quit more than 30 days ago Tobacco Use:. Never Smokeless Tobacco Use:. Household tobacco concerns: No., 09/08/2023 Family History Family history is negative Immunizations Vaccine Date Status Comments influenza virus vaccine, inactivated 04/06/2023 Recorded influenza virus vaccine, inactivated - Not Given Postpone due to refusal SARS-CoV-2 (COVID-19) [id number] 04/27/2022 Recorded influenza virus vaccine, inactivated 03/15/2022 Recorded SARS-CoV-2 (COVID-19) mRNA BNT-162b2 vax 04/29/2021 Recorded influenza virus vaccine, inactivated 03/11/2021 Recorded SARS-CoV-2 (COVID-19) mRNA-1273 vaccine 07/22/2020 Recorded SARS-CoV-2 (COVID-19) mRNA-1273 vaccine 06/24/2020 Recorded SARS-CoV-2 (COVID-19) mRNA-1273 vaccine 2020 Recorded pt is fully vaccinated but does not have his dates with him influenza virus vaccine, inactivated 03/07/2020 Recorded influenza virus vaccine, inactivated 04/13/2019 Recorded influenza virus vaccine (more content not included)... Normal [facility] Comment on above: Result Comment: Elec tronically Signed By: Felicia MCGARRY, Chayito Milner\.br\Date and Time Signed: 09/08/23 12:00 EDT PSA SerPl-mCskyleron 09-08-2023 Prostate specific Ag [Mass/Vol] 794.30 ng/mL High <2.60 [facility] Comment on above: Order Comment: Speci men Type: BLOOD SPECIMENOrdering Facility: [facility] Address: [address] [place] [address] Result Comment: Tota l PSA test methodology used is the Electrochemiluminescence Immunoassay by [employer]. Total PSA values by differing methodologies cannot be interchanged.For an individual patient, the significance of a PSA level should be interpreted in a broad clinical context, including age, race, family history, digital rectal exam, prostate size, results of prior testing (prostate biopsy, free PSA, PCA3), and use of 5-alpha reductase inhibitors. Considering the high incidence of asymptomatic cancer in the general population that may not pose an ultimate risk to a patient, the decision to recommend urological evaluation or prostate biopsy should be individualized after consideration of all these factors.REFERENCE:Punglia S, Rinaa, M.D., M.P.H., Tl Betancourt M.D., Ph.D., Buster Church M.D., Lyubov Christiansen M.P.H., Lawanda Ross Sc.D. Effect of Verification Bias on Screening for Prostate Cancer by Measurement of Prostatic Specific Antigen. N Engl J Med 2003,349:335-42. Performed By: #### 2 857-1 ####[facility] LABCLIA [id number] [place] [address] [place] Patient Educationon 09-08-19 Patient Education Infectious Disease Cellulitis, Adult Cellulitis is a skin infection. The infected area is usually warm, red, swollen, and tender. This condition occurs most often in the arms and lower legs. The infection can travel to the muscles, blood, and underlying tissue and become serious. It is very important to get treated for this condition. What are the causes? Cellulitis is caused by bacteria. The bacteria enter through a break in the skin, such as a cut, burn, insect bite, open sore, or crack. What increases the risk? This condition is more likely to occur in people who: ? Have a weak body defense system (immune system). ? Have open wounds on the skin, such as cuts, schultz, bites, and scrapes. Bacteria can enter the body through these open wounds. ? Are older than 60 years of age. ? Have diabetes. ? Have a type of long-lasting (chronic) liver disease (cirrhosis) or kidney disease. ? Are obese. ? Have a skin condition such as: ? Itchy rash (eczema). ? Slow movement of blood in the veins (venous stasis). ? Fluid buildup below the skin (edema). ? Have had radiation therapy. ? Use IV drugs. What are the signs or symptoms? Symptoms of this condition include: ? Redness, streaking, or spotting on the skin. ? Swollen area of the skin. ? Tenderness or pain when an area of the skin is touched. ? Warm skin. ? A fever. ? Chills. ? Blisters. How is this diagnosed? This condition is diagnosed based on a medical history and physical exam. You may also have tests, including: ? Blood tests. ? Imaging tests. How is this treated? Treatment for this condition may include: ? Medicines, such as antibiotic medicines or medicines to treat allergies (antihistamines). ? Supportive care, such as rest and application of cold or warm cloths (compresses) to the skin. ? Hospital care, if the condition is severe. The infection usually starts to get better within 1?2 days of treatment. Follow these instructions at home: Medicines ? Take ljwa-fti-ptaehky and prescription medicines only as told by your health care provider. ? If you were prescribed an antibiotic medicine, take it as told by your health care provider. Do not stop taking the antibiotic even if you start to feel better. General instructions ? Drink enough fluid to keep your urine pale yellow. ? Do not touch or rub the infected area. ? Raise (elevate) the infected area above the level of your heart while you are sitting or lying down. ? Apply warm or cold compresses to the affected area as told by your health care provider. ? Keep all follow-up visits as told by your health care provider. This is important. These visits let your health care provider make sure a more serious infection is not developing. Contact a health care provider if: ? You have a fever. ? Your symptoms do not begin to improve within 1?2 days of starting treatment. ? Your bone or joint underneath the infected area becomes painful after the skin has healed. ? Your infection returns in the same area or another area. ? You notice a swollen bump in the infected area. ? You develop new symptoms. ? You have a general ill feeling (malaise) with muscle aches and pains. Get help right away if: ? Your symptoms get worse. ? You feel very sleepy. ? You develop vomiting or diarrhea that persists. ? You notice red streaks coming from the infected area. ? Your red area gets larger or turns dark in color. These symptoms may represent a serious problem that is an emergency. Do not wait to see if the symptoms will go away. Get medical help right away. Call your local emergency services (911 in the [place] Do not drive yourself to the hospital. Summary ? Cellulitis is a skin infection. This condition occurs most often in the arms and lower legs. ? Treatment for this condition may include medicines, such as antibiotic medicines or antihistamines. ? Take cvmz-iky-qpvhlhj and prescription medicines only as told by your health care provider. If you were prescribed an antibiotic medicine, do not stop taking the antibiotic even if you start to feel better. ? Contact a health care provider if your symptoms do not begin to improve within 1?2 days of starting treatment or your symptoms get worse. ? Keep all follow-up visits as told by your health care provider. This is important. These visits let your health care provider make sure that a more serious infection is not developing. This information is not intended to replace advice given to you by your health care provider. Make sure you discuss any questions you have with your health care provider. Document Revised: 02/17/2022 Document Reviewed: 02/18/2022 [employer] Patient Education ? 2022 [employer] Normal [facility] Testost SerPl-mCncon 024 Testosterone [Mass/Vol] ng/dL Low 193-824 [facility] Comment on above: Order Comment: Speci men Type: BLOOD SPECIMENOrdering Facility: [facility] Address: [address] [place] [address] Result Comment: A te stosterone level in the 193-320 ng/dL range with associated clinical symptoms is considered low and may indicate hypogonadism (from NEJ 2010 363:123-135). Results >320 ng/dL are considered normal.Result rechecked. Performed By: #### 2 986-8 ####[facility] LABCLIA [id number] [address] [place] Family Medicine Office/Clini c Noteon 09-07-2023 Family Medicine Office/Clinic Note HPI Staff Karin is an 82 year old female presenting for acute visit Acute Spider bite little bit of pain no itching Date of bite: got bit 2 weeks ago thinks it was a spider not going away Location of bite: top of left leg size of a quarter or a bit bigger, red around the outside and crusted up in the center Tried antibiotic cream only seeing oncology next week for blood work and the following week for a radiation treatment History of Present Illness - Pt woke up two days ago with a rash on his leg he believes is a spider bite. - Tried topical Abx with no resolution. - No change in size reported. Review of Systems PHQ Score Initial Depression Screen Score: 0 SCORE Physical Exam Vitals & Measurements T: 36.8 ?C(Oral) HR: 88(Peripheral) RR: 18 BP: 100/56 SpO2: 99% HT: 69 in HT: 175 cm WT: 72.0 kg WT: 158.4 lb BMI: 23.51 General: alert, no acute distress ENMT: oral mucosa moist, Cardiovascular: normal peripheral perfusion Respiratory: respirations non labored Extremities: no trauma Neurological: oriented x 4, LOC appropriate for age, CN II-XII intact, motor strength equal & normal bilaterally, speech normal Skin: Erythema with crusting in the center. Assessment/Plan 1. Cellulitis (L03.90: Cellulitis, unspecified) - Will do Keflex, Keflex was called in as internet was out. - Follow up in 2 days. - Concerned this is cancer related issue. - Pt to notify radiation onco as well. 2. BMI 23.0-23.9, adult (Z68.23: Body mass index [BMI] 23.0-23.9, adult) - BMI education given Ordered: Body Mass Index (BMI) documented 3008F Current tobacco non-user 1036F Depression Screening Negative 3352F Influenza immunization administered or previously received 4274F Most recent diastolic blood pressure <80 mm Hg 3078F Patient screen for fall risk: no falls in last year or 1 fall with no injury in last year 1101F Systolic BP <130 mm Hg (Most Recent) 3074F 3. 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 Ordered: Body Mass Index (BMI) documented 3008F Current tobacco non-user 1036F Depression Screening Negative 3352F Influenza immunization administered or previously received 4274F Most recent diastolic blood pressure <80 mm Hg 3078F Patient screen for fall risk: no falls in last year or 1 fall with no injury in last year 1101F Systolic BP <130 mm Hg (Most Recent) 3074F Follow-up No qualifying data available Problem List/Past Medical History Ongoing Anemia BPH (benign prostatic hyperplasia) Bronchitis Cancer related pain Cellulitis Cough Elevated PSA Ex-smoker Gross hematuria Hospital discharge follow-up Mixed hyperlipidemia Nocturia Penile edema Prostate cancer Prostate cancer metastatic to bone Seizure Skin infection Urgency of urination Historical No qualifying data Procedure/Surgical History Transrectal needle biopsy of prostate (12/02/2021), Transrectal biopsy of prostate using ultrasound (US) guidance (08/22/2018), Transrectal biopsy of prostate using ultrasound (US) guidance (04/09/2009), Transrectal biopsy of prostate using ultrasound (US) guidance (02/18/2009), Angioplasty, Cataract extraction and insertion of intraocular lens, Colonoscopy, Tonsillectomy, Vasectomy. Medications abiraterone 250 mg oral tablet, 1000 mg= 4 tab(s), Oral, Daily acetaminophen-hydrocodone 325 mg-5 mg oral tablet Calcium 600 D Tab, Oral, BID denosumab, See Instructions Handicap Placard, 5 years., See Instructions levetiracetam 500 mg Tab, See Instructions levetiracetam 500 mg Tab, 500 mg= 1 tab(s), Oral, BID Lift chair, See Instructions Misc Prescription, 0 tamsulosin 0.4 mg Cap, 0.4 mg= 1 cap(s), Oral, BID, 3 refills Allergies No Known Medication Allergies Social History Alcohol Current, Beer, 1-2 times per month, 1.00 drinks/episode maximum. Household alcohol concerns: No., 01/05/2023 Tobacco Former smoker, quit more than 30 days ago Tobacco Use:. Never Smokeless Tobacco Use:. Household tobacco concerns: No., 09/06/2023 Family History Family history is negative Immunizations Vaccine Date Status Comments influenza virus vaccine, inactivated 04/06/2023 Recorded influenza virus vaccine, inactivated - Not Given Postpone due to refusal SARS-CoV-2 (COVID-19) [id number] 04/27/2022 Recorded influenza virus vaccine, inactivated 03/15/2022 Recorded SARS-CoV-2 (COVID-19) mRNA BNT-162b2 vax 04/29/2021 Recorded influenza virus vaccine, inactivated 03/11/2021 Recorded SARS-CoV-2 (COVID-19) mRNA-1273 vaccine 07/22/2020 Recorded SARS-CoV-2 (COVID-19) mRNA-1273 vaccine 06/24/2020 Recorded SARS-CoV-2 (COVID-19) mRNA-1273 vaccine 2020 Recorded pt is fully vaccinated but does not have his dates with him influenza virus vaccine, inactivated 03/07/2020 Recorded influenza virus vaccine, inactivated 04/13/2019 Recorded influenza virus vaccine, inactivated 03/22/2018 Recorded influenza virus (more content not included)... Normal [facility] Comment on above: Result Comment: Elec tronically Signed By: Felicia MCGARRY, Chayito Conklin.br\Date and Time Signed: 09/07/23 10:20 EDT CBC W Auto Differential pane l (Bld)on 08-30-2023 Anisocytosis Ql (Bld) Present Normal [facility] Comment on above: Order Comment: Speci men Type: BLOOD SPECIMENOrdering Facility: [facility] Address: [address] [place] [address] Performed By: #### 5 7021-8 ####[facility] LABCLIA [id number] [address] LABCLIA [id number] [place] [address] [place] Basophils (Bld) [#/Vol] 0.02 10*3/uL Normal <0.11 [facility] Comment on above: Order Comment: Speci men Type: BLOOD SPECIMENOrdering Facility: [facility] Address: [address] [place] [address] Performed By: #### 5 7021-8 ####[facility] LABCLIA [id number] [address] LABCLIA [id number] [place] [address] [place] Basophils/100 WBC (Bld) 1.3 % Normal [facility] Comment on above: Order Comment: Speci men Type: BLOOD SPECIMENOrdering Facility: [facility] Address: [address] [place] [address] Performed By: #### 5 7021-8 ####[facility] LABCLIA [id number] [address] LABCLIA [id number] [place] [address] [place] Dacrocytes LM Ql (Bld) Few Normal [facility] Comment on above: Order Comment: Speci men Type: BLOOD SPECIMENOrdering Facility: [facility] Address: [address] [place] [address] Performed By: #### 5 7021-8 ####[facility] LABCLIA [id number] [address] LABCLIA [id number] [place] [address] [place] Differential cell count method Nom (Bld) Manual Normal [facility] Comment on above: Order Comment: Speci men Type: BLOOD SPECIMENOrdering Facility: [facility] Address: [address] [place] [address] Performed By: #### 5 7021-8 ####[facility] LABCLIA [id number] [address] LABCLIA [id number] [place] [address] [place] Eosinophils (Bld) [#/Vol] 0.02 10*3/uL Normal <0.46 [facility] Comment on above: Order Comment: Speci men Type: BLOOD SPECIMENOrdering Facility: [facility] Address: [address] [place] [address] Performed By: #### 5 7021-8 ####[facility] LABCLIA [id number] [address] LABCLIA [id number] [place] [address] [place] Eosinophils/100 WBC (Bld) 1.3 % Normal [facility] Comment on above: Order Comment: Speci men Type: BLOOD SPECIMENOrdering Facility: [facility] Address: [address] [place] [address] Performed By: #### 5 7021-8 ####[facility] LABCLIA [id number] [address] LABCLIA [id number] [place] [address] [place] Erythrocyte distribution width (RBC) [Ratio] 15.1 % High 11.5-15.0 [facility] Comment on above: Order Comment: Speci men Type: BLOOD SPECIMENOrdering Facility: [facility] Address: [address] [place] [address] Performed By: #### 5 7021-8 ####[facility] LABCLIA [id number] [address] LABCLIA [id number] [place] [address] [place] Hematocrit (Bld) [Volume fraction] 30.3 % Low 39.0-51.0 [facility] Comment on above: Order Comment: Speci men Type: BLOOD SPECIMENOrdering Facility: [facility] Address: [address] [place] [address] Performed By: #### 5 7021-8 ####[facility] LABCLIA [id number] [address] LABCLIA [id number] [place] [address] [place] Hemoglobin (Bld) [Mass/Vol] 9.7 g/dL Low 13.0-17.0 [facility] Comment on above: Order Comment: Speci men Type: BLOOD SPECIMENOrdering Facility: [facility] Address: [address] [place] [address] Performed By: #### 5 7021-8 ####[facility] LABCLIA [id number] [address] LABCLIA [id number] [place] [address] [place] Lymphocytes (Bld) [#/Vol] 0.12 10*3/uL Low 1.00-4.00 [facility] Comment on above: Order Comment: Speci men Type: BLOOD SPECIMENOrdering Facility: [facility] Address: [address] [place] [address] Performed By: #### 5 7021-8 ####[facility] LABCLIA [id number] [address] LABCLIA [id number] [place] [address] [place] Lymphocytes/100 WBC (Bld) 7.0 % Normal [facility] Comment on above: Order Comment: Speci men Type: BLOOD SPECIMENOrdering Facility: [facility] Address: [address] [place] [address] Performed By: #### 5 7021-8 ####[facility] LABCLIA [id number] [address] LABCLIA [id number] [place] [address] [place] MCH (RBC) [Entitic mass] 31.0 pg Normal 26.0-34.0 [facility] Comment on above: Order Comment: Speci men Type: BLOOD SPECIMENOrdering Facility: [facility] Address: [address] [place] [address] Performed By: #### 5 7021-8 ####[facility] LABCLIA [id number] [address] LABCLIA [id number] [place] [address] [place] MCHC (RBC) [Mass/Vol] 32.0 g/dL Normal 30.5-36.[address] [facility] Comment on above: Order Comment: Speci men Type: BLOOD SPECIMENOrdering Facility: [facility] Address: [address] [place] [address] Performed By: #### 5 7021-8 ####[facility] LABCLIA [id number] [place] [id number] LABCLIA [id number] [place] [address] [place] MCV (RBC) [Entitic vol] 96.8 fL Normal 80.0-100.0 [facility] Comment on above: Order Comment: Speci men Type: BLOOD SPECIMENOrdering Facility: [facility] Address: [address] [place] [address] Performed By: #### 5 7021-8 ####[facility] LABCLIA [id number] [address] LABCLIA [id number] [place] [address] [place] Monocytes (Bld) [#/Vol] 0.16 10*3/uL Normal <0.87 [facility] Comment on above: Order Comment: Speci men Type: BLOOD SPECIMENOrdering Facility: [facility] Address: [address] [place] [address] Performed By: #### 5 7021-8 ####[facility] LABCLIA [id number] [place] [id number] LABCLIA [id number] [place] [address] [place] Monocytes/100 WBC (Bld) 9.6 % Normal [facility] Comment on above: Order Comment: Speci men Type: BLOOD SPECIMENOrdering Facility: [facility] Address: [address] [place], [place] [address] Performed By: #### 5 7021-8 ####[facility] LABCLIA [id number] [place] [id number] LABCLIA [id number] [place] [id number] [place] MYELO% 0.4 % Normal [facility] Comment on above: Order Comment: Speci men Type: BLOOD SPECIMENOrdering Facility: [facility] Address: [address] [place] [address] Performed By: #### 5 7021-8 ####[facility] LABCLIA [id number] [address] LABCLIA [id number] [place] [address] [place] Neutrophils (Bld) [#/Vol] 1.33 10*3/uL Low 1.45-7.50 [facility] Comment on above: Order Comment: Speci men Type: BLOOD SPECIMENOrdering Facility: [facility] Address: [address] [place] [address] Performed By: #### 5 7021-8 ####[facility] LABCLIA [id number] [address] LABCLIA [id number] [place] [address] [place] Neutrophils/100 WBC (Bld) 80.4 % Normal [facility] Comment on above: Order Comment: Speci men Type: BLOOD SPECIMENOrdering Facility: [facility] Address: [address] [place] [address] Performed By: #### 5 7021-8 ####[facility] LABCLIA [id number] [address] LABCLIA [id number] [place] [address] [place] Nucleated RBC (Bld) [#/Vol] 10*3/uL Normal <0.01 [facility] Comment on above: Order Comment: Speci men Type: BLOOD SPECIMENOrdering Facility: [facility] Address: [address] [place] [address] Performed By: #### 5 7021-8 ####[facility] LABCLIA [id number] [place], [place] [address] LABCLIA [id number] [place] [address] [place] Nucleated RBC/100 WBC (Bld) [Ratio] 0.0 /100 WBC Normal [facility] Comment on above: Order Comment: Speci men Type: BLOOD SPECIMENOrdering Facility: [facility] Address: [address] [place] [address] Performed By: #### 5 7021-8 ####[facility] LABCLIA [id number] [address] LABCLIA [id number] [place] [address] [place] Ovalocytes LM Ql (Bld) Few Normal [facility] Comment on above: Order Comment: Speci men Type: BLOOD SPECIMENOrdering Facility: [facility] Address: [address] [place] [address] Performed By: #### 5 7021-8 ####[facility] LABCLIA [id number] [address] LABCLIA [id number] [place] [address] [place] Platelet mean volume (Bld) [Entitic vol] 9.3 fL Normal 9.0-12.7 [facility] Comment on above: Order Comment: Speci men Type: BLOOD SPECIMENOrdering Facility: [facility] Address: [address] [place] [address] Performed By: #### 5 7021-8 ####[facility] LABCLIA [id number] [address] LABCLIA [id number] [place] [address] [place] Platelets (Bld) [#/Vol] 94 10*3/uL Low 150-400 [facility] Comment on above: Order Comment: Speci men Type: BLOOD SPECIMENOrdering Facility: [facility] Address: [address] [place] [address] Result Comment: No c lot detected. Performed By: #### 5 7021-8 ####[facility] LABCLIA [id number] [address] LABCLIA [id number] [place] [address] [place] Platelets Estimate (Bld) [#/Vol] Decreased Normal [facility] Comment on above: Order Comment: Speci men Type: BLOOD SPECIMENOrdering Facility: [facility] Address: [address] [place] [address] Performed By: #### 5 7021-8 ####[facility] LABCLIA [id number] [address] LABCLIA [id number] [place] [address] [place] Polychromasia LM Ql (Bld) Slight Normal [facility] Comment on above: Order Comment: Speci men Type: BLOOD SPECIMENOrdering Facility: [facility] Address: [address] [place] [address] Performed By: #### 5 7021-8 ####[facility] LABCLIA [id number] [address] LABCLIA [id number] [place] [address] [place] RBC (Bld) [#/Vol] 3.13 10*6/uL Low 4.20-6.00 [facility] Comment on above: Order Comment: Speci men Type: BLOOD SPECIMENOrdering Facility: [facility] Address: [address] [place] [address] Performed By: #### 5 7021-8 ####[facility] LABCLIA [id number] [address] LABCLIA [id number] [place] [address] [place] RED CELL MORPH Reviewed: see result s of individual morphologies Normal [facility] Comment on above: Order Comment: Speci men Type: BLOOD SPECIMENOrdering Facility: [facility] Address: [address] [place] [address] Performed By: #### 5 7021-8 ####[facility] LABCLIA [id number] [address] LABCLIA [id number] [place] [address] [place] WBC (Bld) [#/Vol] 1.65 10*3/uL Low 3.70-11.00 [facility] Comment on above: Order Comment: Speci men Type: BLOOD SPECIMENOrdering Facility: [facility] Address: [address] [place] [address] Result Comment: No c lot detected. Performed By: #### 5 7021-8 ####[facility] LABCLIA [id number] [place] [id number] LABCLIA [id number] [place] [address] [place] WBC Left Shift Ql (Bld) Present Normal [facility] Comment on above: Order Comment: Speci men Type: BLOOD SPECIMENOrdering Facility: [facility] Address: [address] [place] [address] Performed By: #### 5 7021-8 ####[facility] LABCLIA [id number] [place] [id number] LABCLIA [id number] [place] [address] [place] CNOVSPon 08-30-2023 CNOVSP Normal [facility] Comprehensive metabolic 2000 panelon 08-30-2023 Albumin [Mass/Vol] 4.1 g/dL Normal 3.9-4.[address] [facility] Comment on above: Order Comment: Speci men Type: BLOOD SPECIMENOrdering Facility: [facility] Address: [address] [place] [address] Performed By: #### 2 4323-8 ####[facility] LABCLIA [id number] [place] [address] ALP [Catalytic activity/Vol] 578 U/L High 38-113 [facility] Comment on above: Order Comment: Speci men Type: BLOOD SPECIMENOrdering Facility: [facility] Address: [address] [place] [address] Performed By: #### 2 4323-8 ####[facility] LABCLIA [id number] [place] [address] ALT [Catalytic activity/Vol] 39 U/L Normal 10-54 [facility] Comment on above: Order Comment: Speci men Type: BLOOD SPECIMENOrdering Facility: [facility] Address: [address] [place] [address] Performed By: #### 2 4323-8 ####[facility] LABCLIA [id number] [place] [address] Anion gap [Moles/Vol] 10 mmol/L Normal 9-[address] [facility] Comment on above: Order Comment: Speci men Type: BLOOD SPECIMENOrdering Facility: [facility] Address: [address] [place] [address] Performed By: #### 2 4323-8 ####[facility] LABCLIA [id number] [place] [address] AST [Catalytic activity/Vol] 48 U/L High 14-40 [facility] Comment on above: Order Comment: Speci men Type: BLOOD SPECIMENOrdering Facility: [facility] Address: [address] [place] [address] Performed By: #### 2 4323-8 ####[facility] LABCLIA [id number] [place] [address] Bilirubin [Mass/Vol] 0.3 mg/dL Normal 0.2-1.3 [facility] Comment on above: Order Comment: Speci men Type: BLOOD SPECIMENOrdering Facility: [facility] Address: [address] [place] [address] Performed By: #### 2 4323-8 ####[facility] LABCLIA [id number] [place] [address] Calcium [Mass/Vol] 8.3 mg/dL Low 8.5-10.[address] [facility] Comment on above: Order Comment: Speci men Type: BLOOD SPECIMENOrdering Facility: [facility] Address: [address] [place] [address] Performed By: #### 2 4323-8 ####[facility] LABCLIA [id number] [place] [address] Chloride [Moles/Vol] 109 mmol/L High 97-105 [facility] Comment on above: Order Comment: Speci men Type: BLOOD SPECIMENOrdering Facility: [facility] Address: [address] [place] [address] Performed By: #### 2 4323-8 ####[facility] LABCLIA [id number] [place] [address] CO2 [Moles/Vol] 23 mmol/L Normal 22-30 [facility] Comment on above: Order Comment: Speci men Type: BLOOD SPECIMENOrdering Facility: [facility] Address: [address] [place] [address] Performed By: #### 2 4323-8 ####[facility] LABCLIA [id number] [place] [address] Creatinine [Mass/Vol] 0.97 mg/dL Normal 0.73-1.[address] [facility] Comment on above: Order Comment: Speci men Type: BLOOD SPECIMENOrdering Facility: [facility] Address: [address] [place] [address] Performed By: #### 2 4323-8 ####[facility] LABCLIA [id number] [place] [address] Creatinine and Glomerular filtration rate.predicted panel (S/P/Bld) 77 mL/min/1.73m??? Normal >=60 [facility] Comment on above: Order Comment: Vicki tovar Type: BLOOD SPECIMENOrdering Facility: [facility] Address: [address] [place] [address] Result Comment: Christelle mated Glomerular Filtration Rate (eGFR) is calculated using the 2020 CKD-EPI creatinine equation. This equation utilizes serum creatinine, sex, and age as parameters. The creatinine assay has traceable calibration to isotope dilution-mass spectrometry. Refer to KDIGO guidelines for clinical interpretation. In patients with unstable renal function, e.g. those with acute kidney injury, the eGFR may not accurately reflect actual GFR. Performed By: #### 2 4323-8 ####[facility] LABIA [id number] [place] [address] Glucose [Mass/Vol] 122 mg/dL High 74-[address] [facility] Comment on above: Order Comment: Vicki tovar Type: BLOOD SPECIMENOrdering Facility: [facility] Address: [address] [place] [address] Result Comment: The [place] Diabetes [employer] (ADA) provides guidance for cutoff values for fasting glucose and random glucose. The ADA defines fasting as no caloric intake for at least 8 hours. Fasting plasma glucose results between 100 to 125 mg/dL indicate increased risk for diabetes (prediabetes).Fasting plasma glucose results greater than or equal to 126 mg/dL meet the criteria for diagnosis of diabetes. In the absence of unequivocal hyperglycemia, results should be confirmed by repeat testing. In a patient with classic symptoms of hyperglycemia or hyperglycemic crisis, random plasma glucose results greater than or equal to 200 mg/dL meet the criteria for diagnosis of diabetes.Reference: Standards of Medical Care in Diabetes 2016, [place] [employer]. Diabetes Care. 2016.39(Suppl 1). Performed By: #### 2 4323-8 ####[facility] LABCLIA [id number] [place] [address] Potassium [Moles/Vol] 4.3 mmol/L Normal 3.7-5.[address] [facility] Comment on above: Order Comment: Speci men Type: BLOOD SPECIMENOrdering Facility: [facility] Address: [address] [place] [address] Performed By: #### 2 4323-8 ####[facility] LABCLIA [id number] [place] [address] Protein [Mass/Vol] 6.1 g/dL Low 6.3-8.[address] [facility] Comment on above: Order Comment: Speci men Type: BLOOD SPECIMENOrdering Facility: [facility] Address: [address] [place] [address] Performed By: #### 2 4323-8 ####[facility] LABCLIA [id number] [place] [address] Sodium [Moles/Vol] 142 mmol/L Normal 136-[address] [facility] Comment on above: Order Comment: Speci men Type: BLOOD SPECIMENOrdering Facility: [facility] Address: [address] [place] [address] Performed By: #### 2 4323-8 ####[facility] LABCLIA [id number] [place] [address] Urea nitrogen [Mass/Vol] 16 mg/dL Normal 9-24 [facility] Comment on above: Order Comment: Speci men Type: BLOOD SPECIMENOrdering Facility: [facility] Address: [address] [place] [address] Performed By: #### 2 4323-8 ####[facility] LABIA [id number] [place] [address] Consultation Noteon 08-16-19 Consultation Note [id number]#[id number] Normal [facility] Basic metabolic 2000 panelon 08-09-2023 Anion gap [Moles/Vol] 6 mmol/L Low 9-[address] [facility] Comment on above: Order Comment: Speci men Type: BLOOD SPECIMENOrdering Facility: [facility] Address: [address] [place] [id number] Performed By: #### 2 4321-2 ####[facility] LABCLIA [id number] [place] [address] Calcium [Mass/Vol] 9.7 mg/dL Normal 8.5-10.[address] [facility] Comment on above: Order Comment: Speci men Type: BLOOD SPECIMENOrdering Facility: [facility] Address: [address] [place] [address] Performed By: #### 2 4321-2 ####[facility] LABCLIA [id number] [place] [address] Chloride [Moles/Vol] 104 mmol/L Normal 97-105 [facility] Comment on above: Order Comment: Speci men Type: BLOOD SPECIMENOrdering Facility: [facility] Address: [address] [place] [address] Performed By: #### 2 4321-2 ####[facility] LABCLIA [id number] [place] [address] CO2 [Moles/Vol] 26 mmol/L Normal 22-30 [facility] Comment on above: Order Comment: Speci men Type: BLOOD SPECIMENOrdering Facility: [facility] Address: [address] [place] [address] Performed By: #### 2 4321-2 ####[facility] LABCLIA [id number] [place] [address] Creatinine [Mass/Vol] 0.85 mg/dL Normal 0.73-1.[address] [facility] Comment on above: Order Comment: Speci men Type: BLOOD SPECIMENOrdering Facility: [facility] Address: [address] [place] [address] Performed By: #### 2 4321-2 ####[facility] LABCLIA [id number] [place] [address] Creatinine and Glomerular filtration rate.predicted panel (S/P/Bld) 86 mL/min/1.73m??? Normal >=60 [facility] Comment on above: Order Comment: Vicki tovar Type: BLOOD SPECIMENOrdering Facility: [facility] Address: [address] [place] [address] Result Comment: Christelle mated Glomerular Filtration Rate (eGFR) is calculated using the 2020 CKD-EPI creatinine equation. This equation utilizes serum creatinine, sex, and age as parameters. The creatinine assay has traceable calibration to isotope dilution-mass spectrometry. Refer to KDIGO guidelines for clinical interpretation. In patients with unstable renal function, e.g. those with acute kidney injury, the eGFR may not accurately reflect actual GFR. Performed By: #### 2 4321-2 ####[facility] LABCLIA [id number] [place] [address] Glucose [Mass/Vol] 95 mg/dL Normal 74-[address] [facility] Comment on above: Order Comment: Vicki tovar Type: BLOOD SPECIMENOrdering Facility: [facility] Address: [address] [place] [address] Result Comment: The [place] Diabetes Association (ADA) provides guidance for cutoff values for fasting glucose and random glucose. The ADA defines fasting as no caloric intake for at least 8 hours. Fasting plasma glucose results between 100 to 125 mg/dL indicate increased risk for diabetes (prediabetes).Fasting plasma glucose results greater than or equal to 126 mg/dL meet the criteria for diagnosis of diabetes. In the absence of unequivocal hyperglycemia, results should be confirmed by repeat testing. In a patient with classic symptoms of hyperglycemia or hyperglycemic crisis, random plasma glucose results greater than or equal to 200 mg/dL meet the criteria for diagnosis of diabetes.Reference: Standards of Medical Care in Diabetes 2016, [place] [employer]. Diabetes Care. 2016.39(Suppl 1). Performed By: #### 2 4321-2 ####[facility] LABCLIA [id number] [place] [address] Potassium [Moles/Vol] 4.6 mmol/L Normal 3.7-5.[address] [facility] Comment on above: Order Comment: Speci men Type: BLOOD SPECIMENOrdering Facility: [facility] Address: [address] [place] [address] Performed By: #### 2 4321-2 ####[facility] LABCLIA [id number] [place] [address] Sodium [Moles/Vol] 136 mmol/L Normal 136-[address] [facility] Comment on above: Order Comment: Speci men Type: BLOOD SPECIMENOrdering Facility: [facility] Address: [address] [place] [address] Performed By: #### 2 4321-2 ####[facility] LABCLIA [id number] [place] [address] Urea nitrogen [Mass/Vol] 16 mg/dL Normal 9-24 [facility] Comment on above: Order Comment: Speci men Type: BLOOD SPECIMENOrdering Facility: [facility] Address: [address] [place] [address] Performed By: #### 2 4321-2 ####[facility] LABCLIA [id number] [place] [address] CBC W Auto Differential pane l (Bld)on 08-09-2023 Basophils (Bld) [#/Vol] 10*3/uL Normal <0.11 [facility] Comment on above: Order Comment: Speci men Type: BLOOD SPECIMENOrdering Facility: [facility] Address: [address] [place] [address] Performed By: #### 5 7021-8 ####[facility] LABCLIA [id number] [place] [address] Basophils/100 WBC (Bld) 0.9 % Normal [facility] Comment on above: Order Comment: Speci men Type: BLOOD SPECIMENOrdering Facility: [facility] Address: [address] [place] [address] Performed By: #### 5 7021-8 ####[facility] LABCLIA [id number] [place] [address] Differential cell count method Nom (Bld) Auto Normal [facility] Comment on above: Order Comment: Speci men Type: BLOOD SPECIMENOrdering Facility: [facility] Address: [address] [place] [address] Performed By: #### 5 7021-8 ####[facility] LABCLIA [id number] [place] [address] Eosinophils (Bld) [#/Vol] 10*3/uL Normal <0.46 [facility] Comment on above: Order Comment: Speci men Type: BLOOD SPECIMENOrdering Facility: [facility] Address: [address] [place] [address] Performed By: #### 5 7021-8 ####[facility] LABCLIA [id number] [place] [address] Eosinophils/100 WBC (Bld) 0.9 % Normal [facility] Comment on above: Order Comment: Speci men Type: BLOOD SPECIMENOrdering Facility: [facility] Address: [address] [place] [address] Performed By: #### 5 7021-8 ####[facility] LABCLIA [id number] [place] [address] Erythrocyte distribution width (RBC) [Ratio] 15.0 % Normal 11.5-15.0 [facility] Comment on above: Order Comment: Speci men Type: BLOOD SPECIMENOrdering Facility: [facility] Address: [address] [place] [address] Performed By: #### 5 7021-8 ####[facility] LABCLIA [id number] [place] [address] Hematocrit (Bld) [Volume fraction] 34.0 % Low 39.0-51.0 [facility] Comment on above: Order Comment: Speci men Type: BLOOD SPECIMENOrdering Facility: [facility] Address: [address] [place] [address] Performed By: #### 5 7021-8 ####[facility] LABCLIA [id number] [place] [address] Hemoglobin (Bld) [Mass/Vol] 10.9 g/dL Low 13.0-17.0 [facility] Comment on above: Order Comment: Speci men Type: BLOOD SPECIMENOrdering Facility: [facility] Address: [address] [place] [address] Performed By: #### 5 7021-8 ####[facility] LABCLIA [id number] [place] [address] Immature granulocytes (Bld) [#/Vol] 10*3/uL Normal <0.10 [facility] Comment on above: Order Comment: Speci men Type: BLOOD SPECIMENOrdering Facility: [facility] Address: [address] [place] [address] Performed By: #### 5 7021-8 ####[facility] LABCLIA [id number] [place] [address] Immature granulocytes/100 WBC (Bld) 0.4 % Normal [facility] Comment on above: Order Comment: Speci men Type: BLOOD SPECIMENOrdering Facility: [facility] Address: [address] [place] [address] Performed By: #### 5 7021-8 ####[facility] LABCLIA [id number] [place] [address] Lymphocytes (Bld) [#/Vol] 0.21 10*3/uL Low 1.00-4.00 [facility] Comment on above: Order Comment: Speci men Type: BLOOD SPECIMENOrdering Facility: [facility] Address: [address] [place] [address] Performed By: #### 5 7021-8 ####[facility] LABCLIA [id number] [place] [address] Lymphocytes/100 WBC (Bld) 9.3 % Normal [facility] Comment on above: Order Comment: Speci men Type: BLOOD SPECIMENOrdering Facility: [facility] Address: [address] [place] [address] Performed By: #### 5 7021-8 ####[facility] LABCLIA [id number] [place] [address] MCH (RBC) [Entitic mass] 31.0 pg Normal 26.0-34.0 [facility] Comment on above: Order Comment: Speci men Type: BLOOD SPECIMENOrdering Facility: [facility] Address: [address] [place] [address] Performed By: #### 5 7021-8 ####[facility] LABCLIA [id number] [place] [address] MCHC (RBC) [Mass/Vol] 32.1 g/dL Normal 30.5-36.[address] [facility] Comment on above: Order Comment: Speci men Type: BLOOD SPECIMENOrdering Facility: [facility] Address: [address] [place] [address] Performed By: #### 5 7021-8 ####[facility] LABCLIA [id number] [place] [address] MCV (RBC) [Entitic vol] 96.6 fL Normal 80.0-100.0 [facility] Comment on above: Order Comment: Speci men Type: BLOOD SPECIMENOrdering Facility: [facility] Address: [address] [place] [address] Performed By: #### 5 7021-8 ####[facility] LABCLIA [id number] [place] [address] Monocytes (Bld) [#/Vol] 0.28 10*3/uL Normal <0.87 [facility] Comment on above: Order Comment: Speci men Type: BLOOD SPECIMENOrdering Facility: [facility] Address: [address] [place] [address] Performed By: #### 5 7021-8 ####[facility] LABCLIA [id number] [place] [address] Monocytes/100 WBC (Bld) 12.4 % Normal [facility] Comment on above: Order Comment: Speci men Type: BLOOD SPECIMENOrdering Facility: [facility] Address: [address] [place] [address] Performed By: #### 5 7021-8 ####[facility] LABCLIA [id number] [place] [address] Neutrophils (Bld) [#/Vol] 1.71 10*3/uL Normal 1.45-7.50 [facility] Comment on above: Order Comment: Speci men Type: BLOOD SPECIMENOrdering Facility: [facility] Address: [address] [place] [address] Performed By: #### 5 7021-8 ####[facility] LABCLIA [id number] [place] [address] Neutrophils/100 WBC (Bld) 76.1 % Normal [facility] Comment on above: Order Comment: Speci men Type: BLOOD SPECIMENOrdering Facility: [facility] Address: [address] [place] [address] Performed By: #### 5 7021-8 ####[facility] LABCLIA [id number] [place] [address] Nucleated RBC (Bld) [#/Vol] 10*3/uL Normal <0.01 [facility] Comment on above: Order Comment: Speci men Type: BLOOD SPECIMENOrdering Facility: [facility] Address: [address] [place] [address] Performed By: #### 5 7021-8 ####[facility] LABCLIA [id number] [place] [address] Nucleated RBC/100 WBC (Bld) [Ratio] 0.0 /100 WBC Normal [facility] Comment on above: Order Comment: Speci men Type: BLOOD SPECIMENOrdering Facility: [facility] Address: [address] [place] [address] Performed By: #### 5 7021-8 ####[facility] LABCLIA [id number] [place] [address] Platelet mean volume (Bld) [Entitic vol] 8.4 fL Low 9.0-12.7 [facility] Comment on above: Order Comment: Speci men Type: BLOOD SPECIMENOrdering Facility: [facility] Address: [address] [place] [address] Performed By: #### 5 7021-8 ####[facility] LABCLIA [id number] [place] [address] Platelets (Bld) [#/Vol] 158 10*3/uL Normal 150-400 [facility] Comment on above: Order Comment: Speci men Type: BLOOD SPECIMENOrdering Facility: [facility] Address: [address] [place] [address] Performed By: #### 5 7021-8 ####[facility] LABIA [id number] [place] [address] RBC (Bld) [#/Vol] 3.52 10*6/uL Low 4.20-6.00 [facility] Comment on above: Order Comment: Speci men Type: BLOOD SPECIMENOrdering Facility: [facility] Address: [address] [place] [address] Performed By: #### 5 7021-8 ####[facility] LABCLIA [id number] [place] [address] WBC (Bld) [#/Vol] 2.25 10*3/uL Low 3.70-11.00 [facility] Comment on above: Order Comment: Speci men Type: BLOOD SPECIMENOrdering Facility: [facility] Address: [address] [place] [address] Performed By: #### 5 7021-8 ####[facility] LABIA [id number] [place] [address] CNOVSPon 08-09-2023 CNOVSP Normal [facility] CNPNon 08-05-2023 CNPN Normal [facility] CNOVSPon 07-27-2023 CNOVSP Normal [facility] NM THERAPY SCARLETT-177 PSMAon NM THERAPY SCARLETT-177 PSMA Normal [facility] CBC W Auto Differential pane l (Bld)on 07-25-2023 Basophils (Bld) [#/Vol] 10*3/uL Normal <0.11 [facility] Comment on above: Order Comment: Speci men Type: BLOOD SPECIMENOrdering Facility: [facility] Address: [address] [place] [address] Performed By: #### 5 7021-8 ####[facility] LABCLIA [id number] [place] [address] Basophils/100 WBC (Bld) 0.8 % Normal [facility] Comment on above: Order Comment: Speci men Type: BLOOD SPECIMENOrdering Facility: [facility] Address: [address] [place] [address] Performed By: #### 5 7021-8 ####[facility] LABCLIA [id number] [place] [address] Differential cell count method Nom (Bld) Auto Normal [facility] Comment on above: Order Comment: Speci men Type: BLOOD SPECIMENOrdering Facility: [facility] Address: [address] [place] [address] Performed By: #### 5 7021-8 ####[facility] LABCLIA [id number] [place] [address] Eosinophils (Bld) [#/Vol] 10*3/uL Normal <0.46 [facility] Comment on above: Order Comment: Speci men Type: BLOOD SPECIMENOrdering Facility: [facility] Address: [address] [place] [address] Performed By: #### 5 7021-8 ####[facility] LABCLIA [id number] [place] [address] Eosinophils/100 WBC (Bld) 0.8 % Normal [facility] Comment on above: Order Comment: Speci men Type: BLOOD SPECIMENOrdering Facility: [facility] Address: [address] [place] [address] Performed By: #### 5 7021-8 ####[facility] LABCLIA [id number] [place] [address] Erythrocyte distribution width (RBC) [Ratio] 15.5 % High 11.5-15.0 [facility] Comment on above: Order Comment: Speci men Type: BLOOD SPECIMENOrdering Facility: [facility] Address: [address] [place] [address] Performed By: #### 5 7021-8 ####[facility] LABCLIA [id number] [place] [address] Hematocrit (Bld) [Volume fraction] 31.9 % Low 39.0-51.0 [facility] Comment on above: Order Comment: Speci men Type: BLOOD SPECIMENOrdering Facility: [facility] Address: [address] [place] [address] Performed By: #### 5 7021-8 ####[facility] LABCLIA [id number] [place] [address] Hemoglobin (Bld) [Mass/Vol] 10.0 g/dL Low 13.0-17.0 [facility] Comment on above: Order Comment: Speci men Type: BLOOD SPECIMENOrdering Facility: [facility] Address: [address] [place] [address] Performed By: #### 5 7021-8 ####[facility] LABCLIA [id number] [place] [address] Immature granulocytes (Bld) [#/Vol] 10*3/uL Normal <0.10 [facility] Comment on above: Order Comment: Speci men Type: BLOOD SPECIMENOrdering Facility: [facility] Address: [address] [place] [address] Performed By: #### 5 7021-8 ####[facility] LABCLIA [id number] [place] [address] Immature granulocytes/100 WBC (Bld) 0.8 % Normal [facility] Comment on above: Order Comment: Speci men Type: BLOOD SPECIMENOrdering Facility: [facility] Address: [address] [place] [address] Performed By: #### 5 7021-8 ####[facility] LABCLIA [id number] [place] [address] Lymphocytes (Bld) [#/Vol] 0.21 10*3/uL Low 1.00-4.00 [facility] Comment on above: Order Comment: Speci men Type: BLOOD SPECIMENOrdering Facility: [facility] Address: [address] [place] [address] Performed By: #### 5 7021-8 ####[facility] LABCLIA [id number] [place] [address] Lymphocytes/100 WBC (Bld) 8.5 % Normal [facility] Comment on above: Order Comment: Speci men Type: BLOOD SPECIMENOrdering Facility: [facility] Address: [address] [place] [address] Performed By: #### 5 7021-8 ####[facility] LABCLIA [id number] [place] [address] MCH (RBC) [Entitic mass] 30.7 pg Normal 26.0-34.0 [facility] Comment on above: Order Comment: Speci men Type: BLOOD SPECIMENOrdering Facility: [facility] Address: [address] [place] [address] Performed By: #### 5 7021-8 ####[facility] LABCLIA [id number] [place] [address] MCHC (RBC) [Mass/Vol] 31.3 g/dL Normal 30.5-36.[address] [facility] Comment on above: Order Comment: Speci men Type: BLOOD SPECIMENOrdering Facility: [facility] Address: [address] [place] [address] Performed By: #### 5 7021-8 ####[facility] LABCLIA [id number] [place] [address] MCV (RBC) [Entitic vol] 97.9 fL Normal 80.0-100.0 [facility] Comment on above: Order Comment: Speci men Type: BLOOD SPECIMENOrdering Facility: [facility] Address: [address] [place] [address] Performed By: #### 5 7021-8 ####[facility] LABCLIA [id number] [place] [address] Monocytes (Bld) [#/Vol] 0.25 10*3/uL Normal <0.87 [facility] Comment on above: Order Comment: Speci men Type: BLOOD SPECIMENOrdering Facility: [facility] Address: [address] [place] [address] Performed By: #### 5 7021-8 ####[facility] LABCLIA [id number] [place] [address] Monocytes/100 WBC (Bld) 10.2 % Normal [facility] Comment on above: Order Comment: Speci men Type: BLOOD SPECIMENOrdering Facility: [facility] Address: [address] [place] [address] Performed By: #### 5 7021-8 ####[facility] LABCLIA [id number] [place] [address] Neutrophils (Bld) [#/Vol] 1.94 10*3/uL Normal 1.45-7.50 [facility] Comment on above: Order Comment: Speci men Type: BLOOD SPECIMENOrdering Facility: [facility] Address: [address] [place] [address] Performed By: #### 5 7021-8 ####[facility] LABCLIA [id number] [place] [address] Neutrophils/100 WBC (Bld) 78.9 % Normal [facility] Comment on above: Order Comment: Speci men Type: BLOOD SPECIMENOrdering Facility: [facility] Address: [address] [place] [address] Performed By: #### 5 7021-8 ####[facility] LABCLIA [id number] [place] [address] Nucleated RBC (Bld) [#/Vol] 10*3/uL Normal <0.01 [facility] Comment on above: Order Comment: Speci men Type: BLOOD SPECIMENOrdering Facility: [facility] Address: [address] [place] [address] Performed By: #### 5 7021-8 ####[facility] LABCLIA [id number] [place] [address] Nucleated RBC/100 WBC (Bld) [Ratio] 0.0 /100 WBC Normal [facility] Comment on above: Order Comment: Speci men Type: BLOOD SPECIMENOrdering Facility: [facility] Address: [address] [place] [address] Performed By: #### 5 7021-8 ####[facility] LABCLIA [id number] [place] [address] Platelet mean volume (Bld) [Entitic vol] 8.4 fL Low 9.0-12.7 [facility] Comment on above: Order Comment: Speci men Type: BLOOD SPECIMENOrdering Facility: [facility] Address: [address] [place] [address] Performed By: #### 5 7021-8 ####[facility] LABCLIA [id number] [place] [address] Platelets (Bld) [#/Vol] 121 10*3/uL Low 150-400 [facility] Comment on above: Order Comment: Speci men Type: BLOOD SPECIMENOrdering Facility: [facility] Address: [address] [place] [address] Performed By: #### 5 7021-8 ####[facility] LABIA [id number] [place] [address] RBC (Bld) [#/Vol] 3.26 10*6/uL Low 4.20-6.00 [facility] Comment on above: Order Comment: Speci men Type: BLOOD SPECIMENOrdering Facility: [facility] Address: [address] [place] [address] Performed By: #### 5 7021-8 ####[facility] LABIA [id number] [place] [address] WBC (Bld) [#/Vol] 2.46 10*3/uL Low 3.70-11.00 [facility] Comment on above: Order Comment: Speci men Type: BLOOD SPECIMENOrdering Facility: [facility] Address: [address] [place] [address] Performed By: #### 5 7021-8 ####[facility] LABIA [id number] [place] [address] CNPNon 07-25-2023 CNPN Normal [facility] Comprehensive metabolic 2000 panelon 07-25-2023 Albumin [Mass/Vol] 4.2 g/dL Normal 3.9-4.[address] [facility] Comment on above: Order Comment: Speci men Type: BLOOD SPECIMENOrdering Facility: [facility] Address: [address] [place] [address] Performed By: #### 2 4323-8 ####[facility] LABIA [id number] [place] [address] ALP [Catalytic activity/Vol] 584 U/L High 38-113 [facility] Comment on above: Order Comment: Speci men Type: BLOOD SPECIMENOrdering Facility: [facility] Address: [address] [place] [address] Performed By: #### 2 4323-8 ####[facility] LABCLIA [id number] [place] [address] ALT [Catalytic activity/Vol] 25 U/L Normal 10-54 [facility] Comment on above: Order Comment: Speci men Type: BLOOD SPECIMENOrdering Facility: [facility] Address: [address] [place] [address] Performed By: #### 2 4323-8 ####[facility] LABCLIA [id number] [place] [address] Anion gap [Moles/Vol] 10 mmol/L Normal 9-[address] [facility] Comment on above: Order Comment: Speci men Type: BLOOD SPECIMENOrdering Facility: [facility] Address: [address] [place] [address] Performed By: #### 2 4323-8 ####[facility] LABCLIA [id number] [place] [address] AST [Catalytic activity/Vol] 38 U/L Normal 14-40 [facility] Comment on above: Order Comment: Speci men Type: BLOOD SPECIMENOrdering Facility: [facility] Address: [address] [place] [address] Performed By: #### 2 4323-8 ####[facility] LABCLIA [id number] [place] [address] Bilirubin [Mass/Vol] 0.3 mg/dL Normal 0.2-1.3 [facility] Comment on above: Order Comment: Speci men Type: BLOOD SPECIMENOrdering Facility: [facility] Address: [address] [place] [address] Performed By: #### 2 4323-8 ####[facility] LABCLIA [id number] [place] [address] Calcium [Mass/Vol] 8.9 mg/dL Normal 8.5-10.[address] [facility] Comment on above: Order Comment: Speci men Type: BLOOD SPECIMENOrdering Facility: [facility] Address: [address] [place] [address] Performed By: #### 2 4323-8 ####[facility] LABCLIA [id number] [place] [address] Chloride [Moles/Vol] 105 mmol/L Normal 97-105 [facility] Comment on above: Order Comment: Speci men Type: BLOOD SPECIMENOrdering Facility: [facility] Address: [address] [place] [address] Performed By: #### 2 4323-8 ####[facility] LABCLIA [id number] [place] [address] CO2 [Moles/Vol] 24 mmol/L Normal 22-30 [facility] Comment on above: Order Comment: Speci men Type: BLOOD SPECIMENOrdering Facility: [facility] Address: [address] [place] [address] Performed By: #### 2 4323-8 ####[facility] LABCLIA [id number] [place] [address] Creatinine [Mass/Vol] 0.96 mg/dL Normal 0.73-1.[address] [facility] Comment on above: Order Comment: Speci men Type: BLOOD SPECIMENOrdering Facility: [facility] Address: [address] [place] [address] Performed By: #### 2 4323-8 ####[facility] LABCLIA [id number] [place] [address] Creatinine and Glomerular filtration rate.predicted panel (S/P/Bld) 78 mL/min/1.73m??? Normal >=60 [facility] Comment on above: Order Comment: Speci men Type: BLOOD SPECIMENOrdering Facility: [facility] Address: [address] [place] [address] Result Comment: Christelle mated Glomerular Filtration Rate (eGFR) is calculated using the 2020 CKD-EPI creatinine equation. This equation utilizes serum creatinine, sex, and age as parameters. The creatinine assay has traceable calibration to isotope dilution-mass spectrometry. Refer to KDIGO guidelines for clinical interpretation. In patients with unstable renal function, e.g. those with acute kidney injury, the eGFR may not accurately reflect actual GFR. Performed By: #### 2 4323-8 ####[facility] LABCLIA [id number] [place] [address] Glucose [Mass/Vol] 125 mg/dL High 74-[address] [facility] Comment on above: Order Comment: Speci men Type: BLOOD SPECIMENOrdering Facility: [facility] Address: [address] [place] [address] Result Comment: The [place] Diabetes Association (ADA) provides guidance for cutoff values for fasting glucose and random glucose. The ADA defines fasting as no caloric intake for at least 8 hours. Fasting plasma glucose results between 100 to 125 mg/dL indicate increased risk for diabetes (prediabetes).Fasting plasma glucose results greater than or equal to 126 mg/dL meet the criteria for diagnosis of diabetes. In the absence of unequivocal hyperglycemia, results should be confirmed by repeat testing. In a patient with classic symptoms of hyperglycemia or hyperglycemic crisis, random plasma glucose results greater than or equal to 200 mg/dL meet the criteria for diagnosis of diabetes.Reference: Standards of Medical Care in Diabetes 2016, [place] [employer]. Diabetes Care. 2016.39(Suppl 1). Performed By: #### 2 4323-8 ####[facility] LABCLIA [id number] [place] [address] Potassium [Moles/Vol] 4.6 mmol/L Normal 3.7-5.[address] [facility] Comment on above: Order Comment: Vicki tovar Type: BLOOD SPECIMENOrdering Facility: [facility] Address: [address] [place] [address] Performed By: #### 2 4323-8 ####[facility] LABCLIA [id number] [place] [address] Protein [Mass/Vol] 6.6 g/dL Normal 6.3-8.[address] [facility] Comment on above: Order Comment: Vicki men Type: BLOOD SPECIMENOrdering Facility: [facility] Address: [address] [place] [address] Performed By: #### 2 4323-8 ####[facility] LABCLIA [id number] [place] [address] Sodium [Moles/Vol] 139 mmol/L Normal 136-[address] [facility] Comment on above: Order Comment: Speci men Type: BLOOD SPECIMENOrdering Facility: [facility] Address: [address] [place] [address] Performed By: #### 2 4323-8 ####[facility] LABCLIA [id number] [place] [address] Urea nitrogen [Mass/Vol] 16 mg/dL Normal 9-24 [facility] Comment on above: Order Comment: Speci men Type: BLOOD SPECIMENOrdering Facility: [facility] Address: [address] [place] [address] Performed By: #### 2 4323-8 ####[facility] LABCLIA [id number] [place] [address] [facility] Prostate specific Ag [Mass/Vol] 552.00 ng/mL High <2.60 [facility] Comment on above: Order Comment: Speci men Type: BLOOD SPECIMENOrdering Facility: [facility] Address: [address] [place] [address] Result Comment: Tota l PSA test methodology used is the Electrochemiluminescence Immunoassay by [employer]. Total PSA values by differing methodologies cannot be interchanged.For an individual patient, the significance of a PSA level should be interpreted in a broad clinical context, including age, race, family history, digital rectal exam, prostate size, results of prior testing (prostate biopsy, free PSA, PCA3), and use of 5-alpha reductase inhibitors. Considering the high incidence of asymptomatic cancer in the general population that may not pose an ultimate risk to a patient, the decision to recommend urological evaluation or prostate biopsy should be individualized after consideration of all these factors.REFERENCE:Ayla Arriaga M.D., M.P.H., Tl Betancourt M.D., Ph.D., Buster Church M.D., Lyubov Christiansen M.P.H., Lawanda Ross Sc.D. Effect of Verification Bias on Screening for Prostate Cancer by Measurement of Prostatic Specific Antigen. N Engl J Med 2003,349:335-42. Performed By: #### 2 857-1 ####[facility] LABCLIA [id number] [place] [address] [place] Testost SerPl-mCncon 07-24- 024 Testosterone [Mass/Vol] ng/dL Low 193-824 [facility] Comment on above: Order Comment: Speci men Type: BLOOD SPECIMENOrdering Facility: [facility] Address: [address] [place] [address] Result Comment: A te stosterone level in the 193-320 ng/dL range with associated clinical symptoms is considered low and may indicate hypogonadism (from [facility] 2010 363:123-135). Results >320 ng/dL are considered normal.Result rechecked. Performed By: #### 2 986-8 ####[facility] LABCLIA [id number] [address] [place] Consultation Noteon 07-21-19 24 Consultation Note [id number]#1.00TIFF Normal [facility] Consultation Note [id number]#1.00TIFF Normal [facility] Basic metabolic 2000 panelon 07-19-2023 Anion gap [Moles/Vol] 10 mmol/L Normal 9-[address] [facility] Comment on above: Order Comment: Speci men Type: BLOOD SPECIMENOrdering Facility: [facility] Address: [address] [place] [address] Performed By: #### 2 4321-2 ####[facility] LABCLIA [id number] [place] [address] Calcium [Mass/Vol] 9.2 mg/dL Normal 8.5-10.[address] [facility] Comment on above: Order Comment: Speci men Type: BLOOD SPECIMENOrdering Facility: [facility] Address: [address] [place] [address] Performed By: #### 2 4321-2 ####[facility] LABCLIA [id number] [place] [address] Chloride [Moles/Vol] 106 mmol/L High 97-105 [facility] Comment on above: Order Comment: Speci men Type: BLOOD SPECIMENOrdering Facility: [facility] Address: [address] [place] [address] Performed By: #### 2 4321-2 ####[facility] LABCLIA [id number] [place] [address] CO2 [Moles/Vol] 25 mmol/L Normal 22-30 [facility] Comment on above: Order Comment: Speci men Type: BLOOD SPECIMENOrdering Facility: [facility] Address: [address] [place] [address] Performed By: #### 2 4321-2 ####[facility] LABCLIA [id number] [place] [address] Creatinine [Mass/Vol] 0.86 mg/dL Normal 0.73-1.[address] [facility] Comment on above: Order Comment: Speci men Type: BLOOD SPECIMENOrdering Facility: [facility] Address: [address] [place] [address] Performed By: #### 2 4321-2 ####[facility] LABCLIA [id number] [place] [address] Creatinine and Glomerular filtration rate.predicted panel (S/P/Bld) 86 mL/min/1.73m??? Normal >=60 [facility] Comment on above: Order Comment: Speci men Type: BLOOD SPECIMENOrdering Facility: [facility] Address: [address] [place] [address] Result Comment: Christelle mated Glomerular Filtration Rate (eGFR) is calculated using the 2020 CKD-EPI creatinine equation. This equation utilizes serum creatinine, sex, and age as parameters. The creatinine assay has traceable calibration to isotope dilution-mass spectrometry. Refer to KDIGO guidelines for clinical interpretation. In patients with unstable renal function, e.g. those with acute kidney injury, the eGFR may not accurately reflect actual GFR. Performed By: #### 2 4321-2 ####[facility] LABCLIA [id number] [place] [address] Glucose [Mass/Vol] 127 mg/dL High 74-[address] [facility] Comment on above: Order Comment: Speci men Type: BLOOD SPECIMENOrdering Facility: [facility] Address: [address] [place] [address] Result Comment: The [place] Diabetes Association (ADA) provides guidance for cutoff values for fasting glucose and random glucose. The ADA defines fasting as no caloric intake for at least 8 hours. Fasting plasma glucose results between 100 to 125 mg/dL indicate increased risk for diabetes (prediabetes).Fasting plasma glucose results greater than or equal to 126 mg/dL meet the criteria for diagnosis of diabetes. In the absence of unequivocal hyperglycemia, results should be confirmed by repeat testing. In a patient with classic symptoms of hyperglycemia or hyperglycemic crisis, random plasma glucose results greater than or equal to 200 mg/dL meet the criteria for diagnosis of diabetes.Reference: Standards of Medical Care in Diabetes 2016, [place] [employer]. Diabetes Care. 2016.39(Suppl 1). Performed By: #### 2 4321-2 ####[facility] LABCLIA [id number] [place] [address] Potassium [Moles/Vol] 4.3 mmol/L Normal 3.7-5.[address] [facility] Comment on above: Order Comment: Elieli men Type: BLOOD SPECIMENOrdering Facility: [facility] Address: [address] [id number] Performed By: #### 2 4321-2 ####[facility] LABCLIA [id number] [place] [address] Sodium [Moles/Vol] 141 mmol/L Normal 136-[address] [facility] Comment on above: Order Comment: Speci men Type: BLOOD SPECIMENOrdering Facility: [facility] Address: [address] [place] [address] Performed By: #### 2 4321-2 ####[facility] LABCLIA [id number] [place] [address] Urea nitrogen [Mass/Vol] 16 mg/dL Normal 9-24 [facility] Comment on above: Order Comment: Speci men Type: BLOOD SPECIMENOrdering Facility: [facility] Address: [address] [place] [address] Performed By: #### 2 4321-2 ####[facility] LABCLIA [id number] [place] [address] Anion gap [Moles/Vol] 10 mmol/L 9 - 18 mmol/L [facility] Calcium [Mass/Vol] 9.2 mg/dL 8.5 - 10. 2 mg/dL [facility] Chloride [Moles/Vol] 106 mmol/L High 97 - 10 5 mmol/L [facility] CO2 [Moles/Vol] 25 mmol/L 22 - 30 mmol/L [facility] Creatinine [Mass/Vol] 0.86 mg/dL 0.73 - 1.22 mg/dL [facility] Estimated Glomerular Filtration Rate 86 mL/min/1.73m >=60 mL/min/1.73m [facility] Glucose [Mass/Vol] 127 mg/dL High 74 - 99 mg/dL [facility] Potassium [Moles/Vol] 4.3 mmol/L 3.7 - 5.1 mmol/L [facility] Sodium [Moles/Vol] 141 mmol/L 136 - 144 mmol/L [facility] Urea nitrogen [Mass/Vol] 16 mg/dL 9 - 24 mg/dL [facility] CBC W Auto Differential pane l (Bld)on 07-19-2023 Basophils (Bld) [#/Vol] 0.04 10*3/uL Normal <0.11 [facility] Comment on above: Order Comment: Speci men Type: BLOOD SPECIMENOrdering Facility: [facility] Address: [address] [place] [address] Performed By: #### 5 7021-8 ####[facility] LABCLIA [id number] [place] [address] Basophils/100 WBC (Bld) 1.5 % Normal [facility] Comment on above: Order Comment: Speci men Type: BLOOD SPECIMENOrdering Facility: [facility] Address: [address] [place] [address] Performed By: #### 5 7021-8 ####[facility] LABCLIA [id number] [place] [address] Differential cell count method Nom (Bld) Auto Normal [facility] Comment on above: Order Comment: Speci men Type: BLOOD SPECIMENOrdering Facility: [facility] Address: [address] [place] [address] Performed By: #### 5 7021-8 ####[facility] LABCLIA [id number] [place] [address] Eosinophils (Bld) [#/Vol] 0.03 10*3/uL Normal <0.46 [facility] Comment on above: Order Comment: Speci men Type: BLOOD SPECIMENOrdering Facility: [facility] Address: [address] [place] [address] Performed By: #### 5 7021-8 ####[facility] LABCLIA [id number] [place] [address] Eosinophils/100 WBC (Bld) 1.1 % Normal [facility] Comment on above: Order Comment: Speci men Type: BLOOD SPECIMENOrdering Facility: [facility] Address: [address] [place] [address] Performed By: #### 5 7021-8 ####[facility] LABCLIA [id number] [place] [address] Erythrocyte distribution width (RBC) [Ratio] 16.1 % High 11.5-15.0 [facility] Comment on above: Order Comment: Speci men Type: BLOOD SPECIMENOrdering Facility: [facility] Address: [address] [place] [address] Performed By: #### 5 7021-8 ####[facility] LABCLIA [id number] [place] [address] Hematocrit (Bld) [Volume fraction] 34.0 % Low 39.0-51.0 [facility] Comment on above: Order Comment: Speci men Type: BLOOD SPECIMENOrdering Facility: [facility] Address: [address] [place] [address] Performed By: #### 5 7021-8 ####[facility] LABCLIA [id number] [place] [address] Hemoglobin (Bld) [Mass/Vol] 10.7 g/dL Low 13.0-17.0 [facility] Comment on above: Order Comment: Speci men Type: BLOOD SPECIMENOrdering Facility: [facility] Address: [address] [place] [address] Performed By: #### 5 7021-8 ####[facility] LABCLIA [id number] [place] [address] Immature granulocytes (Bld) [#/Vol] 10*3/uL Normal <0.10 [facility] Comment on above: Order Comment: Speci men Type: BLOOD SPECIMENOrdering Facility: [facility] Address: [address] [place] [address] Performed By: #### 5 7021-8 ####[facility] LABCLIA [id number] [place] [address] Immature granulocytes/100 WBC (Bld) 0.4 % Normal [facility] Comment on above: Order Comment: Speci men Type: BLOOD SPECIMENOrdering Facility: [facility] Address: [address] [place] [address] Performed By: #### 5 7021-8 ####[facility] LABCLIA [id number] [place] [address] Lymphocytes (Bld) [#/Vol] 0.24 10*3/uL Low 1.00-4.00 [facility] Comment on above: Order Comment: Speci men Type: BLOOD SPECIMENOrdering Facility: [facility] Address: [address] [place] [address] Performed By: #### 5 7021-8 ####[facility] LABCLIA [id number] [place] [address] Lymphocytes/100 WBC (Bld) 8.9 % Normal [facility] Comment on above: Order Comment: Speci men Type: BLOOD SPECIMENOrdering Facility: [facility] Address: [address] [place] [address] Performed By: #### 5 7021-8 ####[facility] LABIA [id number] [place] [address] MCH (RBC) [Entitic mass] 30.9 pg Normal 26.0-34.0 [facility] Comment on above: Order Comment: Speci men Type: BLOOD SPECIMENOrdering Facility: [facility] Address: [address] [place] [address] Performed By: #### 5 7021-8 ####[facility] LABCLIA [id number] [place] [address] MCHC (RBC) [Mass/Vol] 31.5 g/dL Normal 30.5-36.[address] [facility] Comment on above: Order Comment: Speci men Type: BLOOD SPECIMENOrdering Facility: [facility] Address: [address] [place] [address] Performed By: #### 5 7021-8 ####[facility] LABIA [id number] [place] [address] MCV (RBC) [Entitic vol] 98.3 fL Normal 80.0-100.0 [facility] Comment on above: Order Comment: Speci men Type: BLOOD SPECIMENOrdering Facility: [facility] Address: [address] [place] [address] Performed By: #### 5 7021-8 ####[facility] LABCLIA [id number] [place] [address] Monocytes (Bld) [#/Vol] 0.27 10*3/uL Normal <0.87 [facility] Comment on above: Order Comment: Speci men Type: BLOOD SPECIMENOrdering Facility: [facility] Address: [address] [place] [address] Performed By: #### 5 7021-8 ####[facility] LABCLIA [id number] [place] [address] Monocytes/100 WBC (Bld) 10.0 % Normal [facility] Comment on above: Order Comment: Speci men Type: BLOOD SPECIMENOrdering Facility: [facility] Address: [address] [place] [address] Performed By: #### 5 7021-8 ####[facility] LABCLIA [id number] [place] [address] Neutrophils (Bld) [#/Vol] 2.10 10*3/uL Normal 1.45-7.50 [facility] Comment on above: Order Comment: Speci men Type: BLOOD SPECIMENOrdering Facility: [facility] Address: [address] [place] [address] Performed By: #### 5 7021-8 ####[facility] LABCLIA [id number] [place] [address] Neutrophils/100 WBC (Bld) 78.1 % Normal [facility] Comment on above: Order Comment: Speci men Type: BLOOD SPECIMENOrdering Facility: [facility] Address: [address] [place] [address] Performed By: #### 5 7021-8 ####[facility] LABCLIA [id number] [place] [address] Nucleated RBC (Bld) [#/Vol] 10*3/uL Normal <0.01 [facility] Comment on above: Order Comment: Speci men Type: BLOOD SPECIMENOrdering Facility: [facility] Address: [address] [place] [address] Performed By: #### 5 7021-8 ####[facility] LABCLIA [id number] [place] [address] Nucleated RBC/100 WBC (Bld) [Ratio] 0.0 /100 WBC Normal [facility] Comment on above: Order Comment: Speci men Type: BLOOD SPECIMENOrdering Facility: [facility] Address: [address] [place] [address] Performed By: #### 5 7021-8 ####[facility] LABCLIA [id number] [place] [address] Platelet mean volume (Bld) [Entitic vol] 8.5 fL Low 9.0-12.7 [facility] Comment on above: Order Comment: Speci men Type: BLOOD SPECIMENOrdering Facility: [facility] Address: [address] [place] [address] Performed By: #### 5 7021-8 ####[facility] LABCLIA [id number] [place] [address] Platelets (Bld) [#/Vol] 147 10*3/uL Low 150-400 [facility] Comment on above: Order Comment: Speci men Type: BLOOD SPECIMENOrdering Facility: [facility] Address: [address] [place] [address] Performed By: #### 5 7021-8 ####[facility] LABCLIA [id number] [place] [address] RBC (Bld) [#/Vol] 3.46 10*6/uL Low 4.20-6.00 [facility] Comment on above: Order Comment: Speci men Type: BLOOD SPECIMENOrdering Facility: [facility] Address: [address] [place] [address] Performed By: #### 5 7021-8 ####[facility] LABCLIA [id number] [place] [address] WBC (Bld) [#/Vol] 2.69 10*3/uL Low 3.70-11.00 [facility] Comment on above: Order Comment: Speci men Type: BLOOD SPECIMENOrdering Facility: [facility] Address: [address] [place] [address] Performed By: #### 5 7021-8 ####[facility] LABCLIA [id number] [place] [address] Basophils (Bld) [#/Vol] 0.04 10*3/uL <0.11 k/uL [facility] Basophils/100 WBC (Bld) 1.5 % [facility] Differential cell count method Nom (Bld) Auto [facility] Eosinophils (Bld) [#/Vol] 0.03 10*3/uL <0.46 k/uL [facility] Eosinophils/100 WBC (Bld) 1.1 % [facility] Erythrocyte distribution width (RBC) [Ratio] 16.1 % High 11.5 - 15.0 % [facility] Hematocrit (Bld) [Volume fraction] 34.0 % Low 39.0 - 51.0 % [facility] Hemoglobin (Bld) [Mass/Vol] 10.7 g/dL Low 13.0 - 17.0 g/dL [facility] Immature granulocytes (Bld) [#/Vol] <0.10 k/uL [facility] Immature granulocytes/100 WBC (Bld) 0.4 % [facility] Lymphocytes (Bld) [#/Vol] 0.24 10*3/uL Low 1.00 - 4.00 k/uL [facility] Lymphocytes/100 WBC (Bld) 8.9 % [facility] MCH (RBC) [Entitic mass] 30.9 pg 26.0 - 34.0 pg [facility] MCHC (RBC) [Mass/Vol] 31.5 g/dL 30.5 - 36.0 g/dL [facility] MCV (RBC) [Entitic vol] 98.3 fL 80.0 - 100.0 fL [facility] Monocytes (Bld) [#/Vol] 0.27 10*3/uL <0.87 k/uL [facility] Monocytes/100 WBC (Bld) 10.0 % [facility] Neutrophils (Bld) [#/Vol] 2.10 10*3/uL 1.45 - 7.50 k/uL [facility] Neutrophils/100 WBC (Bld) 78.1 % [facility] Nucleated RBC (Bld) [#/Vol] <0.01 k/uL [facility] Nucleated RBC/100 WBC (Bld) [Ratio] 0.0 /100 WBC [facility] Platelet mean volume (Bld) [Entitic vol] 8.5 fL Low 9.0 - 12.7 fL [facility] Platelets (Bld) [#/Vol] 147 10*3/uL Low 150 - 400 k/uL [facility] RBC (Bld) [#/Vol] 3.46 10*6/uL Low 4.20 - 6.0 0 m/uL [facility] WBC (Bld) [#/Vol] 2.69 10*3/uL Low 3.70 - 11. 00 k/uL [facility] CNOVSPon 07-19-2023 CNOVSP Normal [facility] Consultation Noteon 07-04-19 Consultation Note [id number]#1.00TIFF Normal [facility] CNPNon 06-30-2023 CNPN Normal [facility] Consultation Noteon 06-29-19 Consultation Note [id number]#1.00TIFF Normal [facility] PSA/PROSTSPECAG DIAGon 06-29 Prostate specific Ag [Mass/Vol] 583.50 ng/mL High <2.60 ng/mL [facility] CBC W Auto Differential pane l (Bld)on 06-28-2023 Basophils (Bld) [#/Vol] 0.04 10*3/uL Normal <0.11 [facility] Comment on above: Order Comment: Speci men Type: BLOOD SPECIMENOrdering Facility: [facility] Address: [address] [place] [address] Performed By: #### 5 7021-8 ####[facility] LABCLIA [id number] [place] [address] Basophils/100 WBC (Bld) 1.6 % Normal [facility] Comment on above: Order Comment: Speci men Type: BLOOD SPECIMENOrdering Facility: [facility] Address: [address] [place] [address] Performed By: #### 5 7021-8 ####[facility] LABCLIA [id number] [place] [address] Differential cell count method Nom (Bld) Auto Normal [facility] Comment on above: Order Comment: Speci men Type: BLOOD SPECIMENOrdering Facility: [facility] Address: [address] [place] [address] Performed By: #### 5 7021-8 ####[facility] LABCLIA [id number] [place] [address] Eosinophils (Bld) [#/Vol] 0.03 10*3/uL Normal <0.46 [facility] Comment on above: Order Comment: Speci men Type: BLOOD SPECIMENOrdering Facility: [facility] Address: [address] [place] [address] Performed By: #### 5 7021-8 ####[facility] LABCLIA [id number] [place] [address] Eosinophils/100 WBC (Bld) 1.2 % Normal [facility] Comment on above: Order Comment: Speci men Type: BLOOD SPECIMENOrdering Facility: [facility] Address: [address] [place] [address] Performed By: #### 5 7021-8 ####[facility] LABCLIA [id number] [place] [address] Erythrocyte distribution width (RBC) [Ratio] 17.3 % High 11.5-15.0 [facility] Comment on above: Order Comment: Speci men Type: BLOOD SPECIMENOrdering Facility: [facility] Address: [address] [place] [address] Performed By: #### 5 7021-8 ####[facility] LABCLIA [id number] [place] [address] Hematocrit (Bld) [Volume fraction] 32.0 % Low 39.0-51.0 [facility] Comment on above: Order Comment: Speci men Type: BLOOD SPECIMENOrdering Facility: [facility] Address: [address] [place] [address] Performed By: #### 5 7021-8 ####[facility] LABCLIA [id number] [place] [address] Hemoglobin (Bld) [Mass/Vol] 9.8 g/dL Low 13.0-17.0 [facility] Comment on above: Order Comment: Speci men Type: BLOOD SPECIMENOrdering Facility: [facility] Address: [address] [place] [address] Performed By: #### 5 7021-8 ####[facility] LABCLIA [id number] [place] [address] Immature granulocytes (Bld) [#/Vol] 10*3/uL Normal <0.10 [facility] Comment on above: Order Comment: Speci men Type: BLOOD SPECIMENOrdering Facility: [facility] Address: [address] [place] [address] Performed By: #### 5 7021-8 ####[facility] LABCLIA [id number] [place] [address] Immature granulocytes/100 WBC (Bld) 0.0 % Normal [facility] Comment on above: Order Comment: Speci men Type: BLOOD SPECIMENOrdering Facility: [facility] Address: [address] [place] [address] Performed By: #### 5 7021-8 ####[facility] LABCLIA [id number] [place] [address] Lymphocytes (Bld) [#/Vol] 0.24 10*3/uL Low 1.00-4.00 [facility] Comment on above: Order Comment: Speci men Type: BLOOD SPECIMENOrdering Facility: [facility] Address: [address] [place] [address] Performed By: #### 5 7021-8 ####[facility] LABCLIA [id number] [place] [address] Lymphocytes/100 WBC (Bld) 9.6 % Normal [facility] Comment on above: Order Comment: Speci men Type: BLOOD SPECIMENOrdering Facility: [facility] Address: [address] [place] [address] Performed By: #### 5 7021-8 ####[facility] LABCLIA [id number] [place] [address] MCH (RBC) [Entitic mass] 29.6 pg Normal 26.0-34.0 [facility] Comment on above: Order Comment: Speci men Type: BLOOD SPECIMENOrdering Facility: [facility] Address: [address] [place] [address] Performed By: #### 5 7021-8 ####[facility] LABCLIA [id number] [place] [address] MCHC (RBC) [Mass/Vol] 30.6 g/dL Normal 30.5-36.[address] [facility] Comment on above: Order Comment: Speci men Type: BLOOD SPECIMENOrdering Facility: [facility] Address: [address] [place] [address] Performed By: #### 5 7021-8 ####[facility] LABCLIA [id number] [place] [address] MCV (RBC) [Entitic vol] 96.7 fL Normal 80.0-100.0 [facility] Comment on above: Order Comment: Speci men Type: BLOOD SPECIMENOrdering Facility: [facility] Address: [address] [place] [address] Performed By: #### 5 7021-8 ####[facility] LABCLIA [id number] [place] [address] Monocytes (Bld) [#/Vol] 0.27 10*3/uL Normal <0.87 [facility] Comment on above: Order Comment: Speci men Type: BLOOD SPECIMENOrdering Facility: [facility] Address: [address] [place] [address] Performed By: #### 5 7021-8 ####[facility] LABCLIA [id number] [place] [address] Monocytes/100 WBC (Bld) 10.8 % Normal [facility] Comment on above: Order Comment: Speci men Type: BLOOD SPECIMENOrdering Facility: [facility] Address: [address] [place] [address] Performed By: #### 5 7021-8 ####[facility] LABCLIA [id number] [place] [address] Neutrophils (Bld) [#/Vol] 1.93 10*3/uL Normal 1.45-7.50 [facility] Comment on above: Order Comment: Speci men Type: BLOOD SPECIMENOrdering Facility: [facility] Address: [address] [place] [address] Performed By: #### 5 7021-8 ####[facility] LABCLIA [id number] [place] [address] Neutrophils/100 WBC (Bld) 76.8 % Normal [facility] Comment on above: Order Comment: Speci men Type: BLOOD SPECIMENOrdering Facility: [facility] Address: [address] [place] [address] Performed By: #### 5 7021-8 ####[facility] LABCLIA [id number] [place] [address] Nucleated RBC (Bld) [#/Vol] 10*3/uL Normal <0.01 [facility] Comment on above: Order Comment: Speci men Type: BLOOD SPECIMENOrdering Facility: [facility] Address: [address] [place] [address] Performed By: #### 5 7021-8 ####[facility] LABCLIA [id number] [place] [address] Nucleated RBC/100 WBC (Bld) [Ratio] 0.0 /100 WBC Normal [facility] Comment on above: Order Comment: Speci men Type: BLOOD SPECIMENOrdering Facility: [facility] Address: [address] [place] [address] Performed By: #### 5 7021-8 ####[facility] LABCLIA [id number] [place] [address] Platelet mean volume (Bld) [Entitic vol] 8.4 fL Low 9.0-12.7 [facility] Comment on above: Order Comment: Speci men Type: BLOOD SPECIMENOrdering Facility: [facility] Address: [address] [place] [address] Performed By: #### 5 7021-8 ####[facility] LABIA [id number] [place] [address] Platelets (Bld) [#/Vol] 190 10*3/uL Normal 150-400 [facility] Comment on above: Order Comment: Speci men Type: BLOOD SPECIMENOrdering Facility: [facility] Address: [address] [place] [address] Performed By: #### 5 7021-8 ####[facility] LABCLIA [id number] [place] [address] RBC (Bld) [#/Vol] 3.31 10*6/uL Low 4.20-6.00 [facility] Comment on above: Order Comment: Speci men Type: BLOOD SPECIMENOrdering Facility: [facility] Address: [address] [place] [address] Performed By: #### 5 7021-8 ####[facility] LABCLIA [id number] [place] [address] WBC (Bld) [#/Vol] 2.51 10*3/uL Low 3.70-11.00 [facility] Comment on above: Order Comment: Speci men Type: BLOOD SPECIMENOrdering Facility: [facility] Address: [address] [place] [address] Performed By: #### 5 7021-8 ####[facility] LABCLIA [id number] [place] [address] Basophils (Bld) [#/Vol] 0.04 10*3/uL <0.11 k/uL [facility] Basophils/100 WBC (Bld) 1.6 % [facility] Differential cell count method Nom (Bld) Auto [facility] Eosinophils (Bld) [#/Vol] 0.03 10*3/uL <0.46 k/uL [facility] Eosinophils/100 WBC (Bld) 1.2 % [facility] Erythrocyte distribution width (RBC) [Ratio] 17.3 % High 11.5 - 15.0 % [facility] Hematocrit (Bld) [Volume fraction] 32.0 % Low 39.0 - 51.0 % [facility] Hemoglobin (Bld) [Mass/Vol] 9.8 g/dL Low 13.0 - 17.0 g/dL [facility] Immature granulocytes (Bld) [#/Vol] <0.10 k/uL [facility] Immature granulocytes/100 WBC (Bld) 0.0 % [facility] Lymphocytes (Bld) [#/Vol] 0.24 10*3/uL Low 1.00 - 4.00 k/uL [facility] Lymphocytes/100 WBC (Bld) 9.6 % [facility] MCH (RBC) [Entitic mass] 29.6 pg 26.0 - 34.0 pg [facility] MCHC (RBC) [Mass/Vol] 30.6 g/dL 30.5 - 36.0 g/dL [facility] MCV (RBC) [Entitic vol] 96.7 fL 80.0 - 100.0 fL [facility] Monocytes (Bld) [#/Vol] 0.27 10*3/uL <0.87 k/uL [facility] Monocytes/100 WBC (Bld) 10.8 % [facility] Neutrophils (Bld) [#/Vol] 1.93 10*3/uL 1.45 - 7.50 k/uL [facility] Neutrophils/100 WBC (Bld) 76.8 % [facility] Nucleated RBC (Bld) [#/Vol] <0.01 k/uL [facility] Nucleated RBC/100 WBC (Bld) [Ratio] 0.0 /100 WBC [facility] Platelet mean volume (Bld) [Entitic vol] 8.4 fL Low 9.0 - 12.7 fL [facility] Platelets (Bld) [#/Vol] 190 10*3/uL 150 - 400 k/uL [facility] RBC (Bld) [#/Vol] 3.31 10*6/uL Low 4.20 - 6.0 0 m/uL [facility] WBC (Bld) [#/Vol] 2.51 10*3/uL Low 3.70 - 11. 00 k/uL [facility] CNOVSPon 06-28-2023 CNOVSP Normal [facility] Comprehensive metabolic 2000 panelon 06-28-2023 Albumin [Mass/Vol] 4.1 g/dL Normal 3.9-4.[address] [facility] Comment on above: Order Comment: Speci men Type: BLOOD SPECIMENOrdering Facility: [facility] Address: [address] [place] [address] Performed By: #### 2 4323-8 ####[facility] LABCLIA [id number] [place] [address] ALP [Catalytic activity/Vol] 613 U/L High 38-113 [facility] Comment on above: Order Comment: Speci men Type: BLOOD SPECIMENOrdering Facility: [facility] Address: [address] [place] [address] Performed By: #### 2 4323-8 ####[facility] LABCLIA [id number] [place] [address] ALT [Catalytic activity/Vol] 25 U/L Normal 10-54 [facility] Comment on above: Order Comment: Speci men Type: BLOOD SPECIMENOrdering Facility: [facility] Address: [address] [place] [address] Performed By: #### 2 4323-8 ####[facility] LABCLIA [id number] [place] [address] Anion gap [Moles/Vol] 8 mmol/L Low 9-[address] [facility] Comment on above: Order Comment: Speci men Type: BLOOD SPECIMENOrdering Facility: [facility] Address: [address] [place] [address] Performed By: #### 2 4323-8 ####[facility] LABCLIA [id number] [place] [address] AST [Catalytic activity/Vol] 28 U/L Normal 14-40 [facility] Comment on above: Order Comment: Speci men Type: BLOOD SPECIMENOrdering Facility: [facility] Address: [address] [place] [address] Performed By: #### 2 4323-8 ####[facility] LABCLIA [id number] [place] [address] Bilirubin [Mass/Vol] 0.3 mg/dL Normal 0.2-1.3 [facility] Comment on above: Order Comment: Speci men Type: BLOOD SPECIMENOrdering Facility: [facility] Address: [address] [place] [address] Performed By: #### 2 4323-8 ####[facility] LABCLIA [id number] [place] [address] Calcium [Mass/Vol] 8.8 mg/dL Normal 8.5-10.[address] [facility] Comment on above: Order Comment: Speci men Type: BLOOD SPECIMENOrdering Facility: [facility] Address: [address] [place], [place] [id number] Performed By: #### 2 4323-8 ####[facility] LABCLIA [id number] [place] [address] Chloride [Moles/Vol] 106 mmol/L High 97-105 [facility] Comment on above: Order Comment: Speci men Type: BLOOD SPECIMENOrdering Facility: [facility] Address: [address] [place] [address] Performed By: #### 2 4323-8 ####[facility] LABCLIA [id number] [place] [address] CO2 [Moles/Vol] 25 mmol/L Normal 22-30 [facility] Comment on above: Order Comment: Speci men Type: BLOOD SPECIMENOrdering Facility: [facility] Address: [address] [place] [address] Performed By: #### 2 4323-8 ####[facility] LABCLIA [id number] [place] [address] Creatinine [Mass/Vol] 0.91 mg/dL Normal 0.73-1.[address] [facility] Comment on above: Order Comment: Speci men Type: BLOOD SPECIMENOrdering Facility: [facility] Address: [address] [place] [address] Performed By: #### 2 4323-8 ####[facility] LABCLIA [id number] [place] [address] Creatinine and Glomerular filtration rate.predicted panel (S/P/Bld) 84 mL/min/1.73m??? Normal >=60 [facility] Comment on above: Order Comment: Speci men Type: BLOOD SPECIMENOrdering Facility: [facility] Address: [address] [place] [address] Result Comment: Christelle mated Glomerular Filtration Rate (eGFR) is calculated using the 2020 CKD-EPI creatinine equation. This equation utilizes serum creatinine, sex, and age as parameters. The creatinine assay has traceable calibration to isotope dilution-mass spectrometry. Refer to KDIGO guidelines for clinical interpretation. In patients with unstable renal function, e.g. those with acute kidney injury, the eGFR may not accurately reflect actual GFR. Performed By: #### 2 4323-8 ####[facility] LABCLIA [id number] [place] [address] Glucose [Mass/Vol] 118 mg/dL High 74-[address] [facility] Comment on above: Order Comment: Speci men Type: BLOOD SPECIMENOrdering Facility: [facility] Address: [address] [place] [address] Result Comment: The [place] Diabetes Association (ADA) provides guidance for cutoff values for fasting glucose and random glucose. The ADA defines fasting as no caloric intake for at least 8 hours. Fasting plasma glucose results between 100 to 125 mg/dL indicate increased risk for diabetes (prediabetes).Fasting plasma glucose results greater than or equal to 126 mg/dL meet the criteria for diagnosis of diabetes. In the absence of unequivocal hyperglycemia, results should be confirmed by repeat testing. In a patient with classic symptoms of hyperglycemia or hyperglycemic crisis, random plasma glucose results greater than or equal to 200 mg/dL meet the criteria for diagnosis of diabetes.Reference: Standards of Medical Care in Diabetes 2016, [place] [employer]. Diabetes Care. 2016.39(Suppl 1). Performed By: #### 2 4323-8 ####[facility] LABCLIA [id number] [place] [address] Potassium [Moles/Vol] 4.9 mmol/L Normal 3.7-5.[address] [facility] Comment on above: Order Comment: Speci men Type: BLOOD SPECIMENOrdering Facility: [facility] Address: [address] [place] [address] Performed By: #### 2 4323-8 ####[facility] LABCLIA [id number] [place] [address] Protein [Mass/Vol] 6.5 g/dL Normal 6.3-8.[address] [facility] Comment on above: Order Comment: Speci men Type: BLOOD SPECIMENOrdering Facility: [facility] Address: [address] [place] [address] Performed By: #### 2 4323-8 ####[facility] LABCLIA [id number] [place] [address] Sodium [Moles/Vol] 139 mmol/L Normal 136-[address] [facility] Comment on above: Order Comment: Speci men Type: BLOOD SPECIMENOrdering Facility: [facility] Address: [address] [place] [address] Performed By: #### 2 4323-8 ####[facility] LABCLIA [id number] [place] [address] Urea nitrogen [Mass/Vol] 15 mg/dL Normal 9-24 [facility] Comment on above: Order Comment: Speci men Type: BLOOD SPECIMENOrdering Facility: [facility] Address: [address] [place] [address] Performed By: #### 2 4323-8 ####[facility] LABCLIA [id number] [place] [address] Albumin [Mass/Vol] 4.1 g/dL 3.9 - 4.9 g/dL [facility] ALP [Catalytic activity/Vol] 613 U/L High 38 - 113 U/L [facility] ALT [Catalytic activity/Vol] 25 U/L 10 - 54 U/L [facility] Anion gap [Moles/Vol] 8 mmol/L Low 9 - 18 mmol/L [facility] AST [Catalytic activity/Vol] 28 U/L 14 - 40 U/L [facility] Bilirubin [Mass/Vol] 0.3 mg/dL 0.2 - 1 .3 mg/dL [facility] Calcium [Mass/Vol] 8.8 mg/dL 8.5 - 10. 2 mg/dL [facility] Chloride [Moles/Vol] 106 mmol/L High 97 - 10 5 mmol/L [facility] CO2 [Moles/Vol] 25 mmol/L 22 - 30 mmol/L [facility] Creatinine [Mass/Vol] 0.91 mg/dL 0.73 - 1.22 mg/dL [facility] Estimated Glomerular Filtration Rate 84 mL/min/1.73m >=60 mL/min/1.73m [facility] Glucose [Mass/Vol] 118 mg/dL High 74 - 99 mg/dL [facility] Potassium [Moles/Vol] 4.9 mmol/L 3.7 - 5.1 mmol/L [facility] Protein [Mass/Vol] 6.5 g/dL 6.3 - 8.0 g/dL [facility] Sodium [Moles/Vol] 139 mmol/L 136 - 144 mmol/L [facility] Urea nitrogen [Mass/Vol] 15 mg/dL 9 - 24 mg/dL [facility] PSA SerPl-mCncon 06-28-2023 Prostate specific Ag [Mass/Vol] 583.50 ng/mL High <2.60 [facility] Comment on above: Order Comment: Speci men Type: BLOOD SPECIMENOrdering Facility: [facility] Address: [address] [place] [address] Result Comment: Tota l PSA test methodology used is the Electrochemiluminescence Immunoassay by [employer]. Total PSA values by differing methodologies cannot be interchanged.For an individual patient, the significance of a PSA level should be interpreted in a broad clinical context, including age, race, family history, digital rectal exam, prostate size, results of prior testing (prostate biopsy, free PSA, PCA3), and use of 5-alpha reductase inhibitors. Considering the high incidence of asymptomatic cancer in the general population that may not pose an ultimate risk to a patient, the decision to recommend urological evaluation or prostate biopsy should be individualized after consideration of all these factors.REFERENCE:Ayla Arriaga M.D., M.P.H., Tl Betancourt M.D., Ph.D., Buster Church M.D., Lyubov Christiansen, M.P.H., Lawanda Ross, Sc.D. Effect of Verification Bias on Screening for Prostate Cancer by Measurement of Prostatic Specific Antigen. N Engl J Med 2003,349:335-42. Performed By: #### 2 857-1 ####[facility] LABCLIA [id number] [place] [address] [place] RAD - CT Reporton 06-22-2023 RAD - CT Report [id number]#1.00TIFF Normal [facility] RAD - CT Report [id number]#1.00TIFF Normal [facility] RAD - CT Report [id number]#1.00TIFF Normal [facility] CBC W Auto Differential pane l (Bld)on 06-21-2023 Basophils (Bld) [#/Vol] 10*3/uL Normal <0.11 [facility] Comment on above: Order Comment: Speci men Type: BLOOD SPECIMENOrdering Facility: [facility] Address: [address] [place] [address] Performed By: #### 5 7021-8 ####[facility] LABCLIA [id number] [place] [address] Basophils/100 WBC (Bld) 1.0 % Normal [facility] Comment on above: Order Comment: Speci men Type: BLOOD SPECIMENOrdering Facility: [facility] Address: [address] [place] [address] Performed By: #### 5 7021-8 ####[facility] LABCLIA [id number] [place] [address] Differential cell count method Nom (Bld) Auto Normal [facility] Comment on above: Order Comment: Speci men Type: BLOOD SPECIMENOrdering Facility: [facility] Address: [address] [place] [address] Performed By: #### 5 7021-8 ####[facility] LABCLIA [id number] [place] [address] Eosinophils (Bld) [#/Vol] 10*3/uL Normal <0.46 [facility] Comment on above: Order Comment: Speci men Type: BLOOD SPECIMENOrdering Facility: [facility] Address: [address] [place] [address] Performed By: #### 5 7021-8 ####[facility] LABCLIA [id number] [place] [address] Eosinophils/100 WBC (Bld) 1.0 % Normal [facility] Comment on above: Order Comment: Speci men Type: BLOOD SPECIMENOrdering Facility: [facility] Address: [address] [place] [address] Performed By: #### 5 7021-8 ####[facility] LABCLIA [id number] [place] [address] Erythrocyte distribution width (RBC) [Ratio] 17.3 % High 11.5-15.0 [facility] Comment on above: Order Comment: Speci men Type: BLOOD SPECIMENOrdering Facility: [facility] Address: [address] [place] [address] Performed By: #### 5 7021-8 ####[facility] LABCLIA [id number] [place] [address] Hematocrit (Bld) [Volume fraction] 33.4 % Low 39.0-51.0 [facility] Comment on above: Order Comment: Speci men Type: BLOOD SPECIMENOrdering Facility: [facility] Address: [address] [place] [address] Performed By: #### 5 7021-8 ####[facility] LABCLIA [id number] [place] [address] Hemoglobin (Bld) [Mass/Vol] 10.4 g/dL Low 13.0-17.0 [facility] Comment on above: Order Comment: Speci men Type: BLOOD SPECIMENOrdering Facility: [facility] Address: [address] [place] [address] Performed By: #### 5 7021-8 ####[facility] LABCLIA [id number] [place] [address] Immature granulocytes (Bld) [#/Vol] 10*3/uL Normal <0.10 [facility] Comment on above: Order Comment: Speci men Type: BLOOD SPECIMENOrdering Facility: [facility] Address: [address] [place] [address] Performed By: #### 5 7021-8 ####[facility] LABCLIA [id number] [place] [address] Immature granulocytes/100 WBC (Bld) 0.5 % Normal [facility] Comment on above: Order Comment: Speci men Type: BLOOD SPECIMENOrdering Facility: [facility] Address: [address] [place] [address] Performed By: #### 5 7021-8 ####[facility] LABCLIA [id number] [place] [address] Lymphocytes (Bld) [#/Vol] 0.22 10*3/uL Low 1.00-4.00 [facility] Comment on above: Order Comment: Speci men Type: BLOOD SPECIMENOrdering Facility: [facility] Address: [address] [place] [address] Performed By: #### 5 7021-8 ####[facility] LABCLIA [id number] [place] [address] Lymphocytes/100 WBC (Bld) 10.8 % Normal [facility] Comment on above: Order Comment: Speci men Type: BLOOD SPECIMENOrdering Facility: [facility] Address: [address] [place] [address] Performed By: #### 5 7021-8 ####[facility] LABCLIA [id number] [place] [address] MCH (RBC) [Entitic mass] 29.9 pg Normal 26.0-34.0 [facility] Comment on above: Order Comment: Speci men Type: BLOOD SPECIMENOrdering Facility: [facility] Address: [address] [place] [address] Performed By: #### 5 7021-8 ####[facility] LABCLIA [id number] [place] [address] MCHC (RBC) [Mass/Vol] 31.1 g/dL Normal 30.5-36.[address] [facility] Comment on above: Order Comment: Speci men Type: BLOOD SPECIMENOrdering Facility: [facility] Address: [address] [place], [place] [address] Performed By: #### 5 7021-8 ####[facility] LABCLIA [id number] [place] [address] MCV (RBC) [Entitic vol] 96.0 fL Normal 80.0-100.0 [facility] Comment on above: Order Comment: Speci men Type: BLOOD SPECIMENOrdering Facility: [facility] Address: [address] [place] [address] Performed By: #### 5 7021-8 ####[facility] LABCLIA [id number] [place] [address] Monocytes (Bld) [#/Vol] 0.23 10*3/uL Normal <0.87 [facility] Comment on above: Order Comment: Speci men Type: BLOOD SPECIMENOrdering Facility: [facility] Address: [address] [place] [address] Performed By: #### 5 7021-8 ####[facility] LABCLIA [id number] [place] [address] Monocytes/100 WBC (Bld) 11.3 % Normal [facility] Comment on above: Order Comment: Speci men Type: BLOOD SPECIMENOrdering Facility: [facility] Address: [address] [place] [address] Performed By: #### 5 7021-8 ####[facility] LABCLIA [id number] [place] [address] Neutrophils (Bld) [#/Vol] 1.54 10*3/uL Normal 1.45-7.50 [facility] Comment on above: Order Comment: Speci men Type: BLOOD SPECIMENOrdering Facility: [facility] Address: [address] [place] [address] Performed By: #### 5 7021-8 ####[facility] LABCLIA [id number] [place] [address] Neutrophils/100 WBC (Bld) 75.4 % Normal [facility] Comment on above: Order Comment: Speci men Type: BLOOD SPECIMENOrdering Facility: [facility] Address: [address] [place] [address] Performed By: #### 5 7021-8 ####[facility] LABCLIA [id number] [place] [address] Nucleated RBC (Bld) [#/Vol] 10*3/uL Normal <0.01 [facility] Comment on above: Order Comment: Speci men Type: BLOOD SPECIMENOrdering Facility: [facility] Address: [address] [place] [address] Performed By: #### 5 7021-8 ####[facility] LABCLIA [id number] [place] [address] Nucleated RBC/100 WBC (Bld) [Ratio] 0.0 /100 WBC Normal [facility] Comment on above: Order Comment: Speci men Type: BLOOD SPECIMENOrdering Facility: [facility] Address: [address] [place] [address] Performed By: #### 5 7021-8 ####[facility] LABCLIA [id number] [place] [address] Platelet mean volume (Bld) [Entitic vol] 8.7 fL Low 9.0-12.7 [facility] Comment on above: Order Comment: Speci men Type: BLOOD SPECIMENOrdering Facility: [facility] Address: [address] [place] [address] Performed By: #### 5 7021-8 ####[facility] LABCLIA [id number] [place] [address] Platelets (Bld) [#/Vol] 171 10*3/uL Normal 150-400 [facility] Comment on above: Order Comment: Speci men Type: BLOOD SPECIMENOrdering Facility: [facility] Address: [address] [place] [address] Performed By: #### 5 7021-8 ####[facility] LABCLIA [id number] [place] [address] RBC (Bld) [#/Vol] 3.48 10*6/uL Low 4.20-6.00 [facility] Comment on above: Order Comment: Speci men Type: BLOOD SPECIMENOrdering Facility: [facility] Address: [address] [place] [address] Performed By: #### 5 7021-8 ####[facility] LABIA [id number] [place] [address] WBC (Bld) [#/Vol] 2.04 10*3/uL Low 3.70-11.00 [facility] Comment on above: Order Comment: Speci men Type: BLOOD SPECIMENOrdering Facility: [facility] Address: [address] [place] [address] Performed By: #### 5 7021-8 ####[facility] [id number] [place] [address] CNOVSPon 06-15-2023 CNOVSP Normal [facility] NM THERAPY SCARLETT-177 PSMAon NM THERAPY SCARLETT-177 PSMA Normal [facility] CBC W Auto Differential pane l (Bld)on 06-14-2023 Basophils (Bld) [#/Vol] 0.03 10*3/uL Normal <0.11 [facility] Comment on above: Order Comment: Speci men Type: BLOOD SPECIMENOrdering Facility: [facility] Address: [address] [place] [address] Performed By: #### 5 7021-8 ####[facility] LABIA [id number] [place] [address] Basophils/100 WBC (Bld) 1.3 % Normal [facility] Comment on above: Order Comment: Speci men Type: BLOOD SPECIMENOrdering Facility: [facility] Address: [address] [place] [address] Performed By: #### 5 7021-8 ####[facility] LABCLIA [id number] [place] [address] Differential cell count method Nom (Bld) Auto Normal [facility] Comment on above: Order Comment: Speci men Type: BLOOD SPECIMENOrdering Facility: [facility] Address: [address] [place] [address] Performed By: #### 5 7021-8 ####[facility] LABCLIA [id number] [place] [address] Eosinophils (Bld) [#/Vol] 0.03 10*3/uL Normal <0.46 [facility] Comment on above: Order Comment: Speci men Type: BLOOD SPECIMENOrdering Facility: [facility] Address: [address] [place] [address] Performed By: #### 5 7021-8 ####[facility] LABCLIA [id number] [place] [address] Eosinophils/100 WBC (Bld) 1.3 % Normal [facility] Comment on above: Order Comment: Speci men Type: BLOOD SPECIMENOrdering Facility: [facility] Address: [address] [place] [address] Performed By: #### 5 7021-8 ####[facility] LABCLIA [id number] [place] [address] Erythrocyte distribution width (RBC) [Ratio] 17.6 % High 11.5-15.0 [facility] Comment on above: Order Comment: Speci men Type: BLOOD SPECIMENOrdering Facility: [facility] Address: [address] [place] [address] Performed By: #### 5 7021-8 ####[facility] LABCLIA [id number] [place] [address] Hematocrit (Bld) [Volume fraction] 30.7 % Low 39.0-51.0 [facility] Comment on above: Order Comment: Speci men Type: BLOOD SPECIMENOrdering Facility: [facility] Address: [address] [place] [address] Performed By: #### 5 7021-8 ####[facility] LABCLIA [id number] [place] [address] Hemoglobin (Bld) [Mass/Vol] 9.7 g/dL Low 13.0-17.0 [facility] Comment on above: Order Comment: Speci men Type: BLOOD SPECIMENOrdering Facility: [facility] Address: [address] [place] [address] Performed By: #### 5 7021-8 ####[facility] LABCLIA [id number] [place] [address] Immature granulocytes (Bld) [#/Vol] 10*3/uL Normal <0.10 [facility] Comment on above: Order Comment: Speci men Type: BLOOD SPECIMENOrdering Facility: [facility] Address: [address] [place] [address] Performed By: #### 5 7021-8 ####[facility] LABCLIA [id number] [place] [address] Immature granulocytes/100 WBC (Bld) 0.4 % Normal [facility] Comment on above: Order Comment: Speci men Type: BLOOD SPECIMENOrdering Facility: [facility] Address: [address] [place] [address] Performed By: #### 5 7021-8 ####[facility] LABCLIA [id number] [place] [address] Lymphocytes (Bld) [#/Vol] 0.26 10*3/uL Low 1.00-4.00 [facility] Comment on above: Order Comment: Speci men Type: BLOOD SPECIMENOrdering Facility: [facility] Address: [address] [place] [address] Performed By: #### 5 7021-8 ####[facility] LABCLIA [id number] [place] [address] Lymphocytes/100 WBC (Bld) 11.7 % Normal [facility] Comment on above: Order Comment: Speci men Type: BLOOD SPECIMENOrdering Facility: [facility] Address: [address] [place] [address] Performed By: #### 5 7021-8 ####[facility] LABCLIA [id number] [place] [address] MCH (RBC) [Entitic mass] 30.0 pg Normal 26.0-34.0 [facility] Comment on above: Order Comment: Speci men Type: BLOOD SPECIMENOrdering Facility: [facility] Address: [address] [place] [address] Performed By: #### 5 7021-8 ####[facility] LABCLIA [id number] [place] [address] MCHC (RBC) [Mass/Vol] 31.6 g/dL Normal 30.5-36.[address] [facility] Comment on above: Order Comment: Speci men Type: BLOOD SPECIMENOrdering Facility: [facility] Address: [address] [place] [address] Performed By: #### 5 7021-8 ####[facility] LABIA [id number] [place] [address] MCV (RBC) [Entitic vol] 95.0 fL Normal 80.0-100.0 [facility] Comment on above: Order Comment: Speci men Type: BLOOD SPECIMENOrdering Facility: [facility] Address: [address] [place] [address] Performed By: #### 5 7021-8 ####[facility] LABIA [id number] [place] [address] Monocytes (Bld) [#/Vol] 0.24 10*3/uL Normal <0.87 [facility] Comment on above: Order Comment: Speci men Type: BLOOD SPECIMENOrdering Facility: [facility] Address: [address] [place] [address] Performed By: #### 5 7021-8 ####[facility] LABCLIA [id number] [place] [address] Monocytes/100 WBC (Bld) 10.8 % Normal [facility] Comment on above: Order Comment: Speci men Type: BLOOD SPECIMENOrdering Facility: [facility] Address: [address] [place] [address] Performed By: #### 5 7021-8 ####[facility] LABCLIA [id number] [place] [address] Neutrophils (Bld) [#/Vol] 1.66 10*3/uL Normal 1.45-7.50 [facility] Comment on above: Order Comment: Speci men Type: BLOOD SPECIMENOrdering Facility: [facility] Address: [address] [place] [address] Performed By: #### 5 7021-8 ####[facility] LABCLIA [id number] [place] [address] Neutrophils/100 WBC (Bld) 74.5 % Normal [facility] Comment on above: Order Comment: Speci men Type: BLOOD SPECIMENOrdering Facility: [facility] Address: [address] [place] [address] Performed By: #### 5 7021-8 ####[facility] LABCLIA [id number] [place] [address] Nucleated RBC (Bld) [#/Vol] 10*3/uL Normal <0.01 [facility] Comment on above: Order Comment: Speci men Type: BLOOD SPECIMENOrdering Facility: [facility] Address: [address] [place] [address] Performed By: #### 5 7021-8 ####[facility] LABIA [id number] [place] [address] Nucleated RBC/100 WBC (Bld) [Ratio] 0.0 /100 WBC Normal [facility] Comment on above: Order Comment: Speci men Type: BLOOD SPECIMENOrdering Facility: [facility] Address: [address] [place], [place] [address] Performed By: #### 5 7021-8 ####[facility] LABCLIA [id number] [place] [address] Platelet mean volume (Bld) [Entitic vol] 8.6 fL Low 9.0-12.7 [facility] Comment on above: Order Comment: Speci men Type: BLOOD SPECIMENOrdering Facility: [facility] Address: [address] [place] [address] Performed By: #### 5 7021-8 ####[facility] LABCLIA [id number] [place] [address] Platelets (Bld) [#/Vol] 142 10*3/uL Low 150-400 [facility] Comment on above: Order Comment: Speci men Type: BLOOD SPECIMENOrdering Facility: [facility] Address: [address] [place] [address] Performed By: #### 5 7021-8 ####[facility] LABCLIA [id number] [place] [address] RBC (Bld) [#/Vol] 3.23 10*6/uL Low 4.20-6.00 [facility] Comment on above: Order Comment: Speci men Type: BLOOD SPECIMENOrdering Facility: [facility] Address: [address] [place] [address] Performed By: #### 5 7021-8 ####[facility] LABCLIA [id number] [place] [address] WBC (Bld) [#/Vol] 2.23 10*3/uL Low 3.70-11.00 [facility] Comment on above: Order Comment: Speci men Type: BLOOD SPECIMENOrdering Facility: [facility] Address: [address] [place] [address] Performed By: #### 5 7021-8 ####[facility] LABCLIA [id number] [place] [address] EEG Recordon 06-14-2023 EEG Record [id number]#1.00TIFF Normal [facility] Lab Reportson 06-14-2023 Lab Reports [id number]#1.00TIFF Normal [facility] Outside Hospital Correspo ndenceon 06-14-2023 Outside Hospital Correspondence [id number]#1.00TIFF Normal [facility] RAD - MRI Reporton RAD - MRI Report [id number]#1.00TIFF Normal [facility] Ambulatory Visit Summaryon 0 06-13-2023 Ambulatory Visit Summary KARIN MART :1940 Visit Date:06/13/2023 Ambulatory Visit Instructions Your Diagnosis Hospital discharge follow-up 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 Seizure Cancer related pain Your Care Team Attending Physician - Chayito Duarte MD Primary Care Physician - Chayito Duarte MD This Is Your Medications List Misc Prescription Misc Prescription (Handicap [place], 5 years.) Misc Prescription (Lift chair) abiraterone (abiraterone 250 mg oral tablet) acetaminophen-hydrocodone (acetaminophen-hydrocodon e 325 mg-5 mg oral tablet) aspirin (aspirin 81 mg Oral EC Tab) calcium-vitamin D (Calcium 600 D Tab) denosumab levetiracetam (levetiracetam 500 mg Tab) tamsulosin (tamsulosin 0.4 mg Cap) Procedures Performed Transrectal needle biopsy of prostate (12/02/2021), Transrectal biopsy of prostate using ultrasound (US) guidance (08/22/2018), Transrectal biopsy of prostate using ultrasound (US) guidance (04/09/2009), Transrectal biopsy of prostate using ultrasound (US) guidance (02/18/2009), Angioplasty, Cataract extraction and insertion of intraocular lens, Colonoscopy, Tonsillectomy, Vasectomy. Discharge Vitals Temperature (Temporal Artery) 37.2 ?C Heart Rate (Peripheral) 84 Respiratory Rate 18 Blood Pressure 130/64 Height 175 cm Height 69 in Weight 69.3 kg Weight 152.46 lb BMI 22.63 What to do next Scheduled Follow-Up Appointments Tuesday 10:45 AM EDT With: RENZO MCGARRY, Isa Son Where: [facility] Invalid Interpretation Code [address] [place] [address]- \.br\ Tuesday 9:30 AM EDT \.br\ With:\.br\ Where: [facility] Family Medicine [facility] Family Medicine Office/Clini c Noteon 06-13-2023 Family Medicine Office/Clinic Note HPI Staff Karin is an 82 year old male presenting for 6 month follow up IN [facility] 06/06, had a seizure, ct brain done, tsfd to [facility] ( records have been requested) stayed overnight at [facility] ran EEG and MRI No issues since he's been home. Flu: UTD 04/06/[address] Martin Holm and Dr Reed ESPINO last tuesday questions/concerns: wants to talk to you about the Pluvicto radiation History of Present Illness The patient presents for evaluation of multiple medical concerns. He saw Dr. Lee who gave him Keppra for seizures. He had an MRI and EEG, which did not show anything that they could actually pinpoint either a seizure or a mild stroke, but he can not drive for 6 months. He is scheduled to see a neurologist on 06/21/2023. He had not had pain for quite a while, but when he was pushing snow, he had a little bit more pain from that. He took a couple of Aleve and then on Tuesday, he took one of the narcotic pills. He does not need any more narcotics. He is taking Flomax. Review of Systems PHQ Score Initial Depression Screen Score: 0 SCORE Physical Exam Vitals & Measurements T: 37.2 ?C(Temporal Artery) HR: 84(Peripheral) RR: 18 BP: 130/64 SpO2: 95% HT: 69 in HT: 175 cm WT: 69.3 kg WT: 152.46 lb BMI: 22.63 General: alert, no acute distress ENMT: oral mucosa moist, Cardiovascular: regular rate and rhythm, normal peripheral perfusion Respiratory: Lungs CTA, respirations non labored Extremities: no deformity, no trauma Neurological: oriented x 4, LOC appropriate for age, CN II-XII intact, motor strength equal & normal bilaterally, speech normal Abdomen: Soft, Nontender, Non-distended, + BS Assessment/Plan 1. Hospital discharge follow-up (Z09: Encounter for follow-up examination after completed treatment for conditions other than malignant neoplasm) - Have requested documents - Follow up with Neurology - Will see the patient back at his next apt. 2. Prostate cancer metastatic to bone (C61: Malignant neoplasm of prostate) - Pt to continue to follow up with oncology 3. Secondary malignant neoplasm of bone (C79.51: Secondary malignant neoplasm of bone) - As above 4. Seizure (R56.9: Unspecified convulsions) - Continue on keppra - Follow up with Neurology - Will call in more Keppra for the patient. 5. 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 - Does not need a refill today. Orders: levetiracetam, 500 mg = 1 tab(s), Oral, BID, # 60 tab(s), Refills(s) 0, [facility]acy: [id number], 175, cm, 06/13/23 9:30:00 EST, Height/Length Dosing, 69.3, kg, 06/13/23 9:30:00 EST, Weight Dosing Follow-up No qualifying data available Patient Education Prostate Cancer Problem List/Past Medical History Ongoing Abscess BPH (benign prostatic hyperplasia) Bronchitis Cancer related pain Cough Elevated PSA Ex-smoker Gross hematuria Hospital discharge follow-up Mixed hyperlipidemia Nocturia Penile edema Prostate cancer Prostate cancer metastatic to bone Seizure Skin infection Urgency of urination Historical No qualifying data Procedure/Surgical History Transrectal needle biopsy of prostate (12/02/2021), Transrectal biopsy of prostate using ultrasound (US) guidance (08/22/2018), Transrectal biopsy of prostate using ultrasound (US) guidance (04/09/2009), Transrectal biopsy of prostate using ultrasound (US) guidance (02/18/2009), Angioplasty, Cataract extraction and insertion of intraocular lens, Colonoscopy, Tonsillectomy, Vasectomy. Medications abiraterone 250 mg oral tablet, 1000 mg= 4 tab(s), Oral, Daily acetaminophen-hydrocodone 325 mg-5 mg oral tablet aspirin 81 mg Oral EC Tab, 81 mg= 1 tab(s), Oral, Daily Calcium 600 D Tab, Oral, BID denosumab, See Instructions Handicap Placard, 5 years., See Instructions levetiracetam 500 mg Tab, 500 mg= 1 tab(s), Oral, BID Lift chair, See Instructions [facility] Prescription, 0 tamsulosin 0.4 mg Cap, 0.4 mg= 1 cap(s), Oral, BID, 3 refills Allergies No Known Medication Allergies Social History Alcohol Current, Beer, 1-2 times per month, 1.00 drinks/episode maximum. Household alcohol concerns: No., 01/05/2023 Tobacco Former smoker, quit more than 30 days ago Tobacco Use:. Never Smokeless Tobacco Use:. Household tobacco concerns: No., 06/13/2023 Family History Family history is negative Immunizations Vaccine Date Status Comments influenza virus vaccine, inactivated 04/06/2023 Recorded influenza virus vaccine, inactivated - Not Given Postpone due to refusal SARS-CoV-2 (COVID-19) [id number] 04/27/2022 Recorded influenza virus vaccine, inactivated 03/15/2022 Recorded SARS-CoV-2 (COVID-19) mRNA [id number] vax 04/29/2021 Recorded influenza virus vaccine, inactivated 03/11/2021 Recorded SARS-CoV-2 (COVID-19) mRNA-1273 vaccine 07/22/2020 Recorded SARS-CoV-2 (COVID-19) mRNA-1273 vaccine 06/24/2020 Recorded SARS-CoV-2 (COVID-19) mRNA-1273 vaccine 2020 Recorded pt is fully vac (more content not included)... Normal [facility] Comment on above: Result Comment: Elec tronically Signed By: Felicia MCGARRY, Chayito Milner\.br\Date and Time Signed: 06/13/23 09:50 EST Patient Educationon 06-13-19 Patient Education Oncology Prostate Cancer The prostate is a small gland that produces fluid that makes up semen (seminal fluid). It is located below the bladder in men, in front of the rectum. Prostate cancer is the abnormal growth of cells in the prostate gland. What are the causes? The exact cause of this condition is not known. What increases the risk? You are more likely to develop this condition if: ? You are 65 years of age or older. ? You have a family history of prostate cancer. ? You have a family history of breast and ovarian cancer. ? You have genes that are passed from parent to child (inherited), such as BRCA1 and BRCA2. ? You have Nelson syndrome. men and men of descent are diagnosed with prostate cancer at higher rates than other men. The reasons for this are not well understood and are likely due to a combination of genetic and environmental factors. What are the signs or symptoms? Symptoms of this condition include: ? Problems with urination. This may include: ? A weak or interrupted flow of urine. ? Trouble starting or stopping urination. ? Trouble emptying the bladder all the way. ? The need to urinate more often, especially at night. ? Blood in urine or semen. ? Persistent pain or discomfort in the lower back, lower abdomen, or hips. ? Trouble getting an erection. ? Weakness or numbness in the legs or feet. How is this diagnosed? This condition can be diagnosed with: ? A digital rectal exam. For this exam, a health care provider inserts a gloved finger into the rectum to feel the prostate gland. ? A blood test called a prostate-specific antigen (PSA) test. ? A procedure in which a sample of tissue is taken from the prostate and checked under a microscope (prostate biopsy). ? An imaging test called transrectal ultrasonography. Once the condition is diagnosed, tests will be done to determine how far the cancer has spread. This is called staging the cancer. Staging may involve imaging tests, such as a bone scan, CT scan, PET scan, or MRI. Stages of prostate cancer The stages of prostate cancer are as follows: ? Stage 1 (I). At this stage, the cancer is found in the prostate only. The cancer is not visible on imaging tests, and it is usually found by accident, such as during prostate surgery. ? Stage 2 (II). At this stage, the cancer is more advanced than it is in stage 1, but the cancer has not spread outside the prostate. ? Stage 3 (III). At this stage, the cancer has spread beyond the outer layer of the prostate to nearby tissues. The cancer may be found in the seminal vesicles, which are near the bladder and the prostate. ? Stage 4 (IV). At this stage, the cancer has spread to other parts of the body, such as the lymph nodes, bones, bladder, rectum, liver, or lungs. Prostate cancer grading Prostate cancer is also graded according to how the cancer cells look under a microscope. This is called the [place] score and the total score can range from 6?10, indicating how likely it is that the cancer will spread (metastasize) to other parts of the body. The higher the score, the greater the likelihood that the cancer will spread. ? [place] 6 or lower: This indicates that the cancer cells look similar to normal prostate cells (well differentiated). ? [place] 7: This indicates that the cancer cells look somewhat similar to normal prostate cells (moderately differentiated). ? [place] 8, 9, or 10: This indicates that the cancer cells look very different than normal prostate cells (poorly differentiated). How is this treated? Treatment for this condition depends on several factors, including the stage of the cancer, your age, personal preferences, and your overall health. Talk with your health care provider about treatment options that are recommended for you. Common treatments include: ? Observation for early stage prostate cancer (active surveillance). This involves having exams, blood tests, and in some cases, more biopsies. For some men, this is the only treatment needed. ? Surgery. Types of surgeries include: ? Open surgery (radical prostatectomy). In this surgery, a larger incision is made to remove the prostate. ? A laparoscopic radical prostatectomy. This is a surgery to remove the prostate and lymph nodes through several small incisions. It is often referred to as a minimally invasive surgery. ? A robotic radical prostatectomy. This is laparoscopic surgery to remove the prostate and lymph nodes with the help of robotic arms that are controlled by the surgeon. ? Cryoablation. This is surgery to freeze and destroy cancer cells. ? Radiation treatment. Types of radiation treatment include: ? External beam radiation. This type aims beams of radiation from outside the body at the prostate to destroy cancerous cells. ? Brachytherapy. This type uses radioactive needles, seeds, wires, or tubes that are implanted into the prostate gland. Like external be (more content not included)... Normal [facility] ED Note-Physicianon 01-19-20 24 ED Note-Physician [id number] Normal [facility] RAD - CT Reporton 06-10-2023 RAD - CT Report [id number] Normal [facility] CNPNon 06-08-2023 CNPN Normal [facility] Basic Metabolic Panelon 05-23 Anion gap [Moles/Vol] 9.5 mmol/L Normal 6.0-15.0 [facility] Comment on above: Performed By: #### B MP, CBC #### [facility] [address] Calcium [Mass/Vol] 6.8 mg/dL Low 8.6-10.3 [facility] Comment on above: Performed By: #### B MP, CBC #### [facility] [address] Chloride [Moles/Vol] 112 mmol/L High 98-107 [facility] Comment on above: Performed By: #### B MP, CBC #### [facility] [address] CO2 [Moles/Vol] 24.1 mmol/L Normal 21.0-31.0 [facility] Comment on above: Performed By: #### B MP, CBC #### [facility] [address] [place] [address] [place] Creatinine [Mass/Vol] 0.80 mg/dL Normal 0.70-1.30 [facility] Comment on above: Performed By: #### B MP, CBC #### [facility] [address] [place] [address] [place] Creatinine Clr Calc Pharmacy 65.31 [facility] Comment on above: Result Comment: PERF ORMED BY: [place] [address] PATHOLOGIST [employer] PATRIZIA CORDERO M.D. Performed By: #### B MP, CBC #### [facility] [address] [place] [address] [place] GFR/1.73 sq M.predicted MDRD (S/P/Bld) [Vol rate/Area] mL/min/{1.73_m2} Normal [facility] Comment on above: Performed By: #### B MP, CBC #### [facility] [address] Glucose [Mass/Vol] 82 mg/dL Normal 70-100 [facility] Comment on above: Result Comment: [place] Glucose Reference Range is dependent on time and content of last meal. Glucose of more than 200 mg/dL in a nonstressed, ambulatory subject supports the diagnosis of Diabetes Mellitus. ADA recommended reference range Performed By: #### B MP, CBC #### [address] Potassium [Moles/Vol] 4.6 mmol/L Normal 3.5-5.1 [facility] Comment on above: Performed By: #### B MP, CBC #### [place] [address] [place] Sodium [Moles/Vol] 141 mmol/L Normal 136-145 [facility] Comment on above: Performed By: #### B MP, CBC #### [address] Urea nitrogen [Mass/Vol] 14 mg/dL Normal 7-25 [facility] Comment on above: Performed By: #### B MP, CBC #### [place] [address] [place] Basophils Auto (Bld) [#/Vol] Ordered By: Martin Holm on 06-07-2023 Basophils (Bld) [#/Vol] 0.0 10*3/uL 0.0-0.2 [facility] Basophils/100 WBC Auto (Bld) Ordered By: Martin Holm on 06-07-2023 Basophils/100 WBC (Bld) 1.8 % . [facility] Calcium [Mass/volume] in Ser um or PlasmaOrdered By: Martin Holm on 06-07-2023 Calcium [Mass/Vol] 6.8 mg/dL 8.6-10.3 [facility] Carbon dioxide, total [Moles /volume] in Serum or PlasmaOrdered By: Martin Holm on 06-07-2023 CO2 [Moles/Vol] 24.1 mmol/L 21.0-31.0 [facility] Chloride [Moles/volume] in S may or PlasmaOrdered By: Martin Holm on 06-07-2023 Chloride [Moles/Vol] 112 mmol/L 98-107 [facility] Complete Blood Count Auto Di ffon 06-07-2023 Basophils (Bld) [#/Vol] 0.0 10*3/uL Normal 0.0-0.2 [facility] Comment on above: Result Comment: PERF ORMED BY: [place] [address] PATHOLOGIST [employer] PATRIZIA CORDERO M.D. Performed By: #### B MP, CBC #### [address] Basophils/100 WBC (Bld) 1.8 % Normal . [facility] Comment on above: Performed By: #### B MP, CBC #### [address] Eosinophils (Bld) [#/Vol] 0.0 10*3/uL Normal 0.0-0.45 [facility] Comment on above: Performed By: #### B MP, CBC #### [address] Eosinophils/100 WBC (Bld) 1.4 % Normal . [facility] Comment on above: Performed By: #### B MP, CBC #### [address] Erythrocyte distribution width (RBC) [Ratio] 19.3 % High 12.0-14.8 [facility] Comment on above: Performed By: #### B MP, CBC #### [address] Hematocrit (Bld) [Volume fraction] 26.7 % Low 38.8-50.0 [facility] Comment on above: Performed By: #### B MP, CBC #### [facility] [address] Hemoglobin (Bld) [Mass/Vol] 9.0 g/dL Low 13.0-17.0 [facility] Comment on above: Performed By: #### B MP, CBC #### [facility] [address] Lymphocytes (Bld) [#/Vol] 0.2 10*3/uL Low 1.00-4.8 [facility] Comment on above: Performed By: #### B MP, CBC #### [address] Lymphocytes/100 WBC (Bld) 10.9 % Normal . [facility] Comment on above: Performed By: #### B MP, CBC #### [address] MCH (RBC) [Entitic mass] 31.0 pg Normal 27.5-35.2 [facility] Comment on above: Performed By: #### B MP, CBC #### [address] MCV (RBC) [Entitic vol] 91.7 fL Normal 83.5-101 [facility] Comment on above: Performed By: #### B MP, CBC #### [address] Mean Corpuscular HGB Conc 33.8 g/dL Normal 32.5-35.6 [facility] Comment on above: Performed By: #### B MP, CBC #### [address] Monocytes (Bld) [#/Vol] 0.2 10*3/uL Normal 0.0-0.8 [facility] Comment on above: Performed By: #### B MP, CBC #### [address] Monocytes/100 WBC (Bld) 9.4 % Normal . [facility] Comment on above: Performed By: #### B MP, CBC #### [facility] [address] [place] [address] [place] Neutrophils (Bld) [#/Vol] 1.6 10*3/uL Low 1.8-7.7 [facility] Comment on above: Performed By: #### B MP, CBC #### [facility] [address] [place] [address] [place] Neutrophils/100 WBC (Bld) 76.5 % Normal . [facility] Comment on above: Performed By: #### B MP, CBC #### [facility] [address] [place] [address] [place] NRBC% 0.3 /100{WBC} Normal 0-0.5 [facility] Comment on above: Performed By: #### B MP, CBC #### [facility] [address] Platelet mean volume (Bld) [Entitic vol] 6.2 fL Low 6.6-10.1 [facility] Comment on above: Performed By: #### B MP, CBC #### [facility] [address] [place] [address] [place] Platelets (Bld) [#/Vol] 179 10*3/uL Normal 150-450 [facility] Comment on above: Performed By: #### B MP, CBC #### [facility] [address] [place] [address] [place] RBC (Bld) [#/Vol] 2.92 10*6/uL Low 3.90-5.60 [facility] Comment on above: Performed By: #### B MP, CBC #### [facility] [address] [place] [address] [place] WBC (Bld) [#/Vol] 2.1 10*3/uL Low 4.1-10.5 [facility] Comment on above: Performed By: #### B MP, CBC #### [facility] [address] [place] [address] [place] Creatinine [Mass/volume] in Serum or PlasmaOrdered By: Martin Holm on 06-07-2023 Creatinine [Mass/Vol] 0.80 mg/dL 0.70-1.30 [facility] Eosinophils Auto (Bld) [#/Vo l]Ordered By: Martin Holm on 06-07-2023 Eosinophils (Bld) [#/Vol] 0.0 10*3/uL 0.0-0.45 [facility] Eosinophils/100 WBC Auto (Bl d)Ordered By: Martin Holm on 06-07-2023 Eosinophils/100 WBC (Bld) 1.4 % . [facility] Erythrocyte distribution wid th Auto (RBC) [Ratio]Ordered By: Martin Holm on 06-07-2023 Erythrocyte distribution width (RBC) [Ratio] 19.3 % 12.0-14.8 [facility] Glucose [Mass/volume] in Ser um or PlasmaOrdered By: Martin Holm on 06-07-2023 Glucose [Mass/Vol] 82 mg/dL 70-100 [facility] Comment on above: ADA recommended refe rence rangeRandom Glucose Reference Range is dependent on time and content of last meal. Glucose of more than 200 mg/dL in a nonstressed, ambulatory subject supports the diagnosis of Diabetes Mellitus. Hematocrit Auto (Bld) [Volum e fraction]Ordered By: Martin Holm on 06-07-2023 Hematocrit (Bld) [Volume fraction] 26.7 % 38.8-50.0 [facility] Hemoglobin [Mass/volume] in BloodOrdered By: Martin Holm on 06-07-2023 Hemoglobin (Bld) [Mass/Vol] 9.0 g/dL 13.0-17.0 [facility] Leukocytes [#/volume] correc carlotta for nucleated erythrocytes in Blood by Automated counOrdered By: Martin Holm on 06-07-2023 WBC corrected for nucl RBC Auto (Bld) [#/Vol] 2.1 10*3/uL 4.1-10.5 [facility] Lymphocytes Auto (Bld) [#/Vo l]Ordered By: Martin Holm on 06-07-2023 Lymphocytes (Bld) [#/Vol] 0.2 10*3/uL 1.00-4.8 [facility] Lymphocytes/100 WBC Auto (Bl d)Ordered By: Martin Holm on 06-07-2023 Lymphocytes/100 WBC (Bld) 10.9 % . [facility] MCH Auto (RBC) [Entitic mass ]Ordered By: Martin Holm on 06-07-2023 MCH (RBC) [Entitic mass] 31.0 pg 27.5-35.2 [facility] MCHC Auto (RBC) [Mass/Vol]Or dered By: Martin Holm on 06-07-2023 MCHC (RBC) [Mass/Vol] 33.8 g/dL 32.5-35.6 [facility] MCV Auto (RBC) [Entitic vol] Ordered By: Martin Holm on 06-07-2023 MCV (RBC) [Entitic vol] 91.7 fL 83.5-101 [facility] MR head/brain wo/w conon MR head/brain wo/w con [facility] [place] [address] MRI Report Signed Patient: Karin Mart MR#: [id number] : 1940 Acct:[id number] Age/Sex: 82 / M ADM Date: 06/06/23 Loc: Room: [address] [place] [address] Type: ADM INOo Attending Dr: Martin Holm MD Copies to: Martin Holm MD Ordering Provider: Martin Holm MD Date of Service: 06/07/23 MR/MR head/brain wo/w con: seizure with h/o metastatic prostate ca MRI of the brain with and without IV contrast. Reason for exam: History of metastatic prostate cancer. Seizure. COMPARISON: None. TECHNIQUE: Multisequence, multiplanar images of the brain were performed before and after the use of IV contrast. Seizure protocol was utilized. FINDINGS: No evidence of restriction diffusion is an diffusion-weighted imaging. No evidence of blood products are seen on susceptibility weighted imaging. Cortical atrophy is present. Mild chronic microvascular ischemic changes are seen on the T2 FLAIR imaging. Midbrain, anna, medulla and cerebellum all appear unremarkable. Temporal lobes appear symmetric. Intraorbital contents appear grossly unremarkable. Partially visualized left maxillary sinus disease. Postcontrast imaging demonstrates diffuse dural enhancement present. No enhancing lesion is seen within the brain. Midline structures appear unremarkable. MR/MR head/brain wo/w con IMPRESSION: Diffuse relatively smooth abnormal dural enhancement. Finding is nonspecific and entities the such as intracranial hypotension cannot be excluded. Dural metastases is felt less likely. No intraparenchymal mass is seen to suggest metastatic disease. Impression dictated by: Buddy Smallwood Jr., D.OOmkar06/07/2023 2:10 PM Dictation Location: [place] [address] Transcribed By: [facility] 06/07/23 1410 Dictated By: Buddy Smallwood Jr, DO 06/07/23 1359 Signed By: 06/07/23 1410 Normal [facility] Monocytes Auto (Bld) [#/Vol] Ordered By: Martin Holm on 06-07-2023 Monocytes (Bld) [#/Vol] 0.2 10*3/uL 0.0-0.8 [facility] Monocytes/100 WBC Auto (Bld) Ordered By: Martin Holm on 06-07-2023 Monocytes/100 WBC (Bld) 9.4 % . [facility] Neutrophils Auto (Bld) [#/Vo l]Ordered By: Martin Holm on 06-07-2023 Neutrophils (Bld) [#/Vol] 1.6 10*3/uL 1.8-7.7 [facility] Neutrophils/100 WBC Auto (Bl d)Ordered By: Martin Holm on 06-07-2023 Neutrophils/100 WBC (Bld) 76.5 % . [facility] No Panel InformationOrdered By: Martin Holm on 06-07-2023 Estimated GFR (CKD-EPI) > 60.0 mL/Min [facility] Creatinine Clearance (Chem 65.31 [facility] Nucleated erythrocytes [Pres ence] in Blood by Automated countOrdered By: Martin Holm on 06-07-2023 Nucleated RBC Auto Ql (Bld) 0.3 /100{WBC} 0-0.5 [facility] Platelet mean volume Auto (B ld) [Entitic vol]Ordered By: Martin Holm on 06-07-2023 Platelet mean volume (Bld) [Entitic vol] 6.2 fL 6.6-10.1 [facility] Platelets Auto (Bld) [#/Vol] Ordered By: Martin Holm on 06-07-2023 Platelets (Bld) [#/Vol] 179 10*3/uL 150-450 [facility] Potassium [Moles/volume] in Serum or PlasmaOrdered By: Martin Holm on 06-07-2023 Potassium [Moles/Vol] 4.6 mmol/L 3.5-5.1 [facility] RBC Auto (Bld) [#/Vol]Ordere d By: Martin Holm on 06-07-2023 RBC (Bld) [#/Vol] 2.92 10*6/uL 3.90-5.60 [facility] Serum or plasma anion gap de terminationOrdered By: Martin Holm on 06-07-2023 Anion gap [Moles/Vol] 9.5 mmol/L 6.0-15.0 [facility] Sodium [Moles/volume] in Ser um or PlasmaOrdered By: Martin Holm on 06-07-2023 Sodium [Moles/Vol] 141 mmol/L 136-145 [facility] Urea nitrogen [Mass/volume] in Serum or PlasmaOrdered By: Martin Holm on 06-07-2023 Urea nitrogen [Mass/Vol] 14 mg/dL 7-25 [facility] WBC Auto (Bld) [#/Vol]Ordere d By: Martin Holm on 06-07-2023 WBC (Bld) [#/Vol] 2.1 10*3/uL 4.1-10.5 [facility] CNPNon 06-06-2023 CNPN Normal [facility] Lab Reportson 05-31-2023 Lab Reports [id number] Normal [facility] Consultation Noteon 05-30-19 Consultation Note [id number] Normal [facility] Ambulatory Visit Summaryon 0 05-27-2023 Ambulatory Visit Summary KARIN MART :1940 Visit Date:06/04/2022 Ambulatory Visit Instructions Your Care Team Primary Care Physician - Chayito Duarte MD This Is Your Medications List Misc Prescription Misc Prescription (Handicap Placard, 5 years.) Misc Prescription (Lift chair) abiraterone (abiraterone 250 mg oral tablet) acetaminophen-hydrocodone (acetaminophen-hydrocodon e 325 mg-5 mg oral tablet) calcium-vitamin D (Calcium 600 D Tab) denosumab naproxen (Aleve) tamsulosin (tamsulosin 0.4 mg Cap) Procedures Performed Transrectal needle biopsy of prostate (12/02/2021), Transrectal biopsy of prostate using ultrasound (US) guidance (08/22/2018), Transrectal biopsy of prostate using ultrasound (US) guidance (04/09/2009), Transrectal biopsy of prostate using ultrasound (US) guidance (02/18/2009), Angioplasty, Cataract extraction and insertion of intraocular lens, Colonoscopy, Tonsillectomy, Vasectomy. What to do next Scheduled Follow-Up Appointments Tuesday 9:15 AM EST With: Chayito Duarte MD Where: [facility] Invalid Interpretation Code [address] [place] [address]- \.br\ Tuesday 9:30 AM EDT \.br\ With:\.br\ Where: [facility] Patient Educationon 05-27-19 24 Patient Education Oncology Prostate Cancer The prostate is a small gland that produces fluid that makes up semen (seminal fluid). It is located below the bladder in men, in front of the rectum. Prostate cancer is the abnormal growth of cells in the prostate gland. What are the causes? The exact cause of this condition is not known. What increases the risk? You are more likely to develop this condition if: ? You are 65 years of age or older. ? You have a family history of prostate cancer. ? You have a family history of breast and ovarian cancer. ? You have genes that are passed from parent to child (inherited), such as BRCA1 and BRCA2. ? You have Nelson syndrome. men and men of descent are diagnosed with prostate cancer at higher rates than other men. The reasons for this are not well understood and are likely due to a combination of genetic and environmental factors. What are the signs or symptoms? Symptoms of this condition include: ? Problems with urination. This may include: ? A weak or interrupted flow of urine. ? Trouble starting or stopping urination. ? Trouble emptying the bladder all the way. ? The need to urinate more often, especially at night. ? Blood in urine or semen. ? Persistent pain or discomfort in the lower back, lower abdomen, or hips. ? Trouble getting an erection. ? Weakness or numbness in the legs or feet. How is this diagnosed? This condition can be diagnosed with: ? A digital rectal exam. For this exam, a health care provider inserts a gloved finger into the rectum to feel the prostate gland. ? A blood test called a prostate-specific antigen (PSA) test. ? A procedure in which a sample of tissue is taken from the prostate and checked under a microscope (prostate biopsy). ? An imaging test called transrectal ultrasonography. Once the condition is diagnosed, tests will be done to determine how far the cancer has spread. This is called staging the cancer. Staging may involve imaging tests, such as a bone scan, CT scan, PET scan, or MRI. Stages of prostate cancer The stages of prostate cancer are as follows: ? Stage 1 (I). At this stage, the cancer is found in the prostate only. The cancer is not visible on imaging tests, and it is usually found by accident, such as during prostate surgery. ? Stage 2 (II). At this stage, the cancer is more advanced than it is in stage 1, but the cancer has not spread outside the prostate. ? Stage 3 (III). At this stage, the cancer has spread beyond the outer layer of the prostate to nearby tissues. The cancer may be found in the seminal vesicles, which are near the bladder and the prostate. ? Stage 4 (IV). At this stage, the cancer has spread to other parts of the body, such as the lymph nodes, bones, bladder, rectum, liver, or lungs. Prostate cancer grading Prostate cancer is also graded according to how the cancer cells look under a microscope. This is called the [place] score and the total score can range from 6?10, indicating how likely it is that the cancer will spread (metastasize) to other parts of the body. The higher the score, the greater the likelihood that the cancer will spread. ? [place] 6 or lower: This indicates that the cancer cells look similar to normal prostate cells (well differentiated). ? Gosia 7: This indicates that the cancer cells look somewhat similar to normal prostate cells (moderately differentiated). ? Gosia 8, 9, or 10: This indicates that the cancer cells look very different than normal prostate cells (poorly differentiated). How is this treated? Treatment for this condition depends on several factors, including the stage of the cancer, your age, personal preferences, and your overall health. Talk with your health care provider about treatment options that are recommended for you. Common treatments include: ? Observation for early stage prostate cancer (active surveillance). This involves having exams, blood tests, and in some cases, more biopsies. For some men, this is the only treatment needed. ? Surgery. Types of surgeries include: ? Open surgery (radical prostatectomy). In this surgery, a larger incision is made to remove the prostate. ? A laparoscopic radical prostatectomy. This is a surgery to remove the prostate and lymph nodes through several small incisions. It is often referred to as a minimally invasive surgery. ? A robotic radical prostatectomy. This is laparoscopic surgery to remove the prostate and lymph nodes with the help of robotic arms that are controlled by the surgeon. ? Cryoablation. This is surgery to freeze and destroy cancer cells. ? Radiation treatment. Types of radiation treatment include: ? External beam radiation. This type aims beams of radiation from outside the body at the prostate to destroy cancerous cells. ? Brachytherapy. This type uses radioactive needles, seeds, wires, or tubes that are implanted into the prostate gland. Like external be (more content not included)... Normal [facility] Urology Office/Clinic Noteon 05-27-2023 Urology Office/Clinic Note Chief Complaint prostate cancer metastatic to bone HPI Staff 6m PSA & Lupron DX: Prostate Cancer metastatic to bone & BPH LAST LUPRON: 11/29/22 *Tamsulosin 0.4mg qd therapy. Last seen by Dr Esparza 02/02/23 Last seen by [facility] Hematology/Oncology 05/10/23. Received first dose of Pluvicto 04/27/23. PSA 12/08/22- 323.6 01/18/23- 742.7 02/10/23- 843.8 02/15/23- 857.4 03/17/23- 1313 04/21/23- 1017 05/19/23- 685.60 Dysuria: no Incomplete bladder emptying: no Hematuria: no Frequency: no Urgency: no Nocturia: 2-3x a night for years Stream: no straining or intermittency Leaking: no Post void dripping: no Wearing pads/ Depends: no Urge incontinence: no Stress incontinence: no Incontinence without Sensory Awareness: no Abdominal pain: no Flank pain: no Sexual complaints: no History of Present Illness Tests reviewed: reviewed UA, PSA, testosterone level. I have reviewed the previous health record information and history for this patient from Dr. Muller. I have reviewed and verified the staff HPI to be accurate for this encounter. There have been no associated fever, chills, flank pain, or blood in the urine. Denies any urinary infections since last encounter. Review of Systems PHQ Score Initial Depression Screen Score: 0 SCORE ROS - Provider Constitutional: denies weight loss, denies hot flashes. Eyes: denies eye problems. Gastrointestinal: denies nausea, denies vomiting. Cardiovascular: denies chest pain or angina. Integumentary: no dryness Musculoskeletal: denies musculoskeletal symptoms. ENMT: denies otolaryngeal symptoms. Respiratory: no shortness of breath. Heme/Lymph: denies easy bleeding tendency, denies easy bruising tendency. Psychiatric: no confusion, no anxiety. Genitourinary: See HPI. Physical Exam Vitals & Measurements HR: 71(Peripheral) RR: 16 BP: 137/71 HT: 69 in HT: 175 cm WT: 58.3 kg WT: 128.26 lb BMI: 19.04 General Appearance: alert, no distress, well nourished, well developed male. Genitourinary: normal scrotum, normal testes, normal urethra, normal epididymis, normal vas deferens/spermatic cord. Flank Pain: none. Bladder: nonpalpable. Assessment/Plan 1. 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 Francis [place] score 9 (4+5) in multiple cores. GG5. Perineural invasion identified. Bone scan done 12/09/21 shows diffuse and extensive bone metastasis. CT scan and CXR revealed no evidence of visceral metastases. PSA: 03/16/21 - 10.3 11/24/21 - 629.7 12/24/21 - 792 02/04/22 - 257 04/08/22 - 320.0 05/26/22 - 381.92 07/05/22 - 119.7 10/14/22 - 313.7 11/03/22 - 359.9 11/19/22 - 373.05 12/08/22 - 323.6 01/18/23 - 742.7 02/10/23 - 843.8 02/15/23 - 857.4 03/17/23 - 1,313 04/21/23 - 1,017 05/19/23 - 685.60 Most recent testosterone level <12 drawn 05/19/23. Pt continues zytiga/prednisone and IV Xgeva [id number]. Recently referred to Dr. Oconnor, oncologist at [facility] to discuss radiation, Pluvicto. First tx 04/27/23. Pt states they are every 6 weeks. Complaints of fatigue. Last Lupron given 11/29/22. Last seen by oncology 05/05/23. Lupron 45 mg IM injection given today with no complications. Left glute. -Follow up in 6 months w/ Lupron 2. BPH (benign prostatic hyperplasia) (N40.0: Benign prostatic hyperplasia without lower urinary tract symptoms) Taking Tamsulosin 0.4mg daily. UA today negative for blood and infection. Pt denies any urinary complications at this time. Follow-up With When Contact Information RENZO MCGARRY, Isa Son, URL [address] [place] [address]- Additional Instructions: 6 months w/ Lupron Patient Education Prostate Cancer I, Emely Rios, personally scribed for Dr. Muller on 05/27/2023 12:02:54. . Documentation recorded by the scribe, Emely Rios, accurately reflects the services(s) I performed and decisions made by me. Authenticated by Dr. Muller on 05/27/2023 12:06:03. Problem List/Past Medical History Ongoing Abscess BPH (benign prostatic hyperplasia) Bronchitis Cancer related pain Cough Elevated PSA Ex-smoker Gross hematuria Mixed hyperlipidemia Nocturia Penile edema Prostate cancer Prostate cancer metastatic to bone Skin infection Urgency of urination Historical No qualifying data Procedure/Surgical History Transrectal needle biopsy of prostate (12/02/2021), Transrectal biopsy of prostate using ultrasound (US) guidance (08/22/2018), Transrectal biopsy of prostate using ultrasound (US) guidance (04/09/2009), Transrectal biopsy of prostate using ultrasound (US) guidance (02/18/2009), Angioplasty, Cataract extraction and insertion of intraocular lens, Colonoscopy, Tonsillectomy, Vasectomy. Medications abiraterone 250 mg oral tablet, 1000 mg= 4 tab(s), Oral, Daily acetaminophen-hydrocodone 325 mg-5 mg oral tablet Aleve, 200 mg, Oral, (more content not included)... Normal [facility] Comment on above: Result Comment: Elec tronically Signed By: RENZO MCGARRY, Isa Son\.br\Date and Time Signed: 05/27/23 12:06 EST\.br\Electronically Co-Signed By: Emely Rios\.br\Date and Time Co-Signed: 05/27/23 12:03 EST CBC W Auto Differential pane l (Bld)on 05-26-2023 Basophils (Bld) [#/Vol] 0.04 10*3/uL Normal <0.11 [facility] Comment on above: Order Comment: Speci men Type: BLOOD SPECIMENOrdering Facility: [facility] Address: [address] [place] [address] Performed By: #### 5 7021-8 ####[facility] LABCLIA [id number] [place] [address] Basophils/100 WBC (Bld) 1.4 % Normal [facility] Comment on above: Order Comment: Speci men Type: BLOOD SPECIMENOrdering Facility: [facility] Address: [address] [place] [address] Performed By: #### 5 7021-8 ####[facility] LABCLIA [id number] [place] [address] Differential cell count method Nom (Bld) Auto Normal [facility] Comment on above: Order Comment: Speci men Type: BLOOD SPECIMENOrdering Facility: [facility] Address: [address] [place] [address] Performed By: #### 5 7021-8 ####[facility] LABCLIA [id number] [place] [address] Eosinophils (Bld) [#/Vol] 0.07 10*3/uL Normal <0.46 [facility] Comment on above: Order Comment: Speci men Type: BLOOD SPECIMENOrdering Facility: [facility] Address: [address] [place] [address] Performed By: #### 5 7021-8 ####[facility] LABIA [id number] [place] [address] Eosinophils/100 WBC (Bld) 2.5 % Normal [facility] Comment on above: Order Comment: Speci men Type: BLOOD SPECIMENOrdering Facility: [facility] Address: [address] [place] [address] Performed By: #### 5 7021-8 ####[facility] LABCLIA [id number] [place] [address] Erythrocyte distribution width (RBC) [Ratio] 18.5 % High 11.5-15.0 [facility] Comment on above: Order Comment: Speci men Type: BLOOD SPECIMENOrdering Facility: [facility] Address: [address] [place] [address] Performed By: #### 5 7021-8 ####[facility] LABIA [id number] [place] [address] Hematocrit (Bld) [Volume fraction] 35.9 % Low 39.0-51.0 [facility] Comment on above: Order Comment: Speci men Type: BLOOD SPECIMENOrdering Facility: [facility] Address: [address] [place] [address] Performed By: #### 5 7021-8 ####[facility] LABCLIA [id number] [place] [address] Hemoglobin (Bld) [Mass/Vol] 11.4 g/dL Low 13.0-17.0 [facility] Comment on above: Order Comment: Speci men Type: BLOOD SPECIMENOrdering Facility: [facility] Address: [address] [place] [address] Performed By: #### 5 7021-8 ####[facility] LABCLIA [id number] [place] [address] Immature granulocytes (Bld) [#/Vol] 0.03 10*3/uL Normal <0.10 [facility] Comment on above: Order Comment: Speci men Type: BLOOD SPECIMENOrdering Facility: [facility] Address: [address] [place] [address] Performed By: #### 5 7021-8 ####[facility] LABCLIA [id number] [place] [address] Immature granulocytes/100 WBC (Bld) 1.1 % Normal [facility] Comment on above: Order Comment: Speci men Type: BLOOD SPECIMENOrdering Facility: [facility] Address: [address] [place] [address] Performed By: #### 5 7021-8 ####[facility] LABCLIA [id number] [place] [address] Lymphocytes (Bld) [#/Vol] 0.44 10*3/uL Low 1.00-4.00 [facility] Comment on above: Order Comment: Speci men Type: BLOOD SPECIMENOrdering Facility: [facility] Address: [address] [place] [address] Performed By: #### 5 7021-8 ####[facility] LABCLIA [id number] [place] [address] Lymphocytes/100 WBC (Bld) 15.5 % Normal [facility] Comment on above: Order Comment: Speci men Type: BLOOD SPECIMENOrdering Facility: [facility] Address: [address] [place] [address] Performed By: #### 5 7021-8 ####[facility] LABCLIA [id number] [place] [address] MCH (RBC) [Entitic mass] 29.6 pg Normal 26.0-34.0 [facility] Comment on above: Order Comment: Speci men Type: BLOOD SPECIMENOrdering Facility: [facility] Address: [address] [place] [address] Performed By: #### 5 7021-8 ####[facility] LABIA [id number] [place] [address] MCHC (RBC) [Mass/Vol] 31.8 g/dL Normal 30.5-36.[address] [facility] Comment on above: Order Comment: Speci men Type: BLOOD SPECIMENOrdering Facility: [facility] Address: [address] [place] [address] Performed By: #### 5 7021-8 ####[facility] LABCLIA [id number] [place] [address] MCV (RBC) [Entitic vol] 93.2 fL Normal 80.0-100.0 [facility] Comment on above: Order Comment: Speci men Type: BLOOD SPECIMENOrdering Facility: [facility] Address: [address] [place] [address] Performed By: #### 5 7021-8 ####[facility] LABCLIA [id number] [place] [address] Monocytes (Bld) [#/Vol] 0.30 10*3/uL Normal <0.87 [facility] Comment on above: Order Comment: Speci men Type: BLOOD SPECIMENOrdering Facility: [facility] Address: [address] [place] [address] Performed By: #### 5 7021-8 ####[facility] LABCLIA [id number] [place] [address] Monocytes/100 WBC (Bld) 10.6 % Normal [facility] Comment on above: Order Comment: Speci men Type: BLOOD SPECIMENOrdering Facility: [facility] Address: [address] [place] [address] Performed By: #### 5 7021-8 ####[facility] LABCLIA [id number] [place] [address] Neutrophils (Bld) [#/Vol] 1.95 10*3/uL Normal 1.45-7.50 [facility] Comment on above: Order Comment: Speci men Type: BLOOD SPECIMENOrdering Facility: [facility] Address: [address] [place] [address] Performed By: #### 5 7021-8 ####[facility] LABIA [id number] [place] [address] Neutrophils/100 WBC (Bld) 68.9 % Normal [facility] Comment on above: Order Comment: Speci men Type: BLOOD SPECIMENOrdering Facility: [facility] Address: [address] [place] [address] Performed By: #### 5 7021-8 ####[facility] LABCLIA [id number] [place] [address] Nucleated RBC (Bld) [#/Vol] 10*3/uL Normal <0.01 [facility] Comment on above: Order Comment: Speci men Type: BLOOD SPECIMENOrdering Facility: [facility] Address: [address] [place] [address] Performed By: #### 5 7021-8 ####[facility] LABIA [id number] [place] [address] Nucleated RBC/100 WBC (Bld) [Ratio] 0.0 /100 WBC Normal [facility] Comment on above: Order Comment: Speci men Type: BLOOD SPECIMENOrdering Facility: [facility] Address: [address] [place] [address] Performed By: #### 5 7021-8 ####[facility] LABCLIA [id number] [place] [address] Platelet mean volume (Bld) [Entitic vol] 8.9 fL Low 9.0-12.7 [facility] Comment on above: Order Comment: Speci men Type: BLOOD SPECIMENOrdering Facility: [facility] Address: [address] [place] [address] Performed By: #### 5 7021-8 ####[facility] LABCLIA [id number] [place] [address] Platelets (Bld) [#/Vol] 190 10*3/uL Normal 150-400 [facility] Comment on above: Order Comment: Speci men Type: BLOOD SPECIMENOrdering Facility: [facility] Address: [address] [place] [address] Performed By: #### 5 7021-8 ####[facility] LABCLIA [id number] [place] [address] RBC (Bld) [#/Vol] 3.85 10*6/uL Low 4.20-6.00 [facility] Comment on above: Order Comment: Speci men Type: BLOOD SPECIMENOrdering Facility: [facility] Address: [address] [place] [address] Performed By: #### 5 7021-8 ####[facility] LABCLIA [id number] [place] [address] WBC (Bld) [#/Vol] 2.83 10*3/uL Low 3.70-11.00 [facility] Comment on above: Order Comment: Speci men Type: BLOOD SPECIMENOrdering Facility: [facility] Address: [address] [place] [address] Performed By: #### 5 7021-8 ####[facility] LABCLIA [id number] [place] [address] CNOVSPon 05-26-2023 CNOVSP Normal [facility] Comprehensive metabolic 2000 panelon 05-26-2023 Albumin [Mass/Vol] 4.3 g/dL Normal 3.9-4.[address] [facility] Comment on above: Order Comment: Speci men Type: BLOOD SPECIMENOrdering Facility: [facility] Address: [address] [place] [address] Performed By: #### 2 4323-8 ####[facility] LABCLIA [id number] [place] [address] ALP [Catalytic activity/Vol] 724 U/L High 38-113 [facility] Comment on above: Order Comment: Speci men Type: BLOOD SPECIMENOrdering Facility: [facility] Address: [address] [place] [address] Performed By: #### 2 4323-8 ####[facility] LABCLIA [id number] [place] [address] ALT [Catalytic activity/Vol] 19 U/L Normal 10-54 [facility] Comment on above: Order Comment: Speci men Type: BLOOD SPECIMENOrdering Facility: [facility] Address: [address] [place] [address] Performed By: #### 2 4323-8 ####[facility] LABCLIA [id number] [place] [address] Anion gap [Moles/Vol] 10 mmol/L Normal 9-[address] [facility] Comment on above: Order Comment: Speci men Type: BLOOD SPECIMENOrdering Facility: [facility] Address: [address] [place] [address] Performed By: #### 2 4323-8 ####[facility] LABCLIA [id number] [place] [address] AST [Catalytic activity/Vol] 19 U/L Normal 14-40 [facility] Comment on above: Order Comment: Speci men Type: BLOOD SPECIMENOrdering Facility: [facility] Address: [address] [place] [address] Performed By: #### 2 4323-8 ####[facility] LABCLIA [id number] [place] [address] Bilirubin [Mass/Vol] 0.3 mg/dL Normal 0.2-1.3 [facility] Comment on above: Order Comment: Speci men Type: BLOOD SPECIMENOrdering Facility: [facility] Address: [address] [place] [address] Performed By: #### 2 4323-8 ####[facility] LABCLIA [id number] [place] [address] Calcium [Mass/Vol] 8.1 mg/dL Low 8.5-10.[address] [facility] Comment on above: Order Comment: Speci men Type: BLOOD SPECIMENOrdering Facility: [facility] Address: [address] [place] [address] Performed By: #### 2 4323-8 ####[facility] LABCLIA [id number] [place] [address] Chloride [Moles/Vol] 105 mmol/L Normal 97-105 [facility] Comment on above: Order Comment: Speci men Type: BLOOD SPECIMENOrdering Facility: [facility] Address: [address] [place] [address] Performed By: #### 2 4323-8 ####[facility] LABCLIA [id number] [place], [place] [address] CO2 [Moles/Vol] 26 mmol/L Normal 22-30 [facility] Comment on above: Order Comment: Speci men Type: BLOOD SPECIMENOrdering Facility: [facility] Address: [address] [place] [address] Performed By: #### 2 4323-8 ####[facility] LABCLIA [id number] [place] [address] Creatinine [Mass/Vol] 0.90 mg/dL Normal 0.73-1.[address] [facility] Comment on above: Order Comment: Speci men Type: BLOOD SPECIMENOrdering Facility: [facility] Address: [address] [place] [address] Performed By: #### 2 4323-8 ####[facility] LABCLIA [id number] [place] [address] Creatinine and Glomerular filtration rate.predicted panel (S/P/Bld) 85 mL/min/1.73m??? Normal >=60 [facility] Comment on above: Order Comment: Elieltwan tovar Type: BLOOD SPECIMENOrdering Facility: [facility] Address: [address] [place] [address] Result Comment: Christelle mated Glomerular Filtration Rate (eGFR) is calculated using the 2020 CKD-EPI creatinine equation. This equation utilizes serum creatinine, sex, and age as parameters. The creatinine assay has traceable calibration to isotope dilution-mass spectrometry. Refer to KDIGO guidelines for clinical interpretation. In patients with unstable renal function, e.g. those with acute kidney injury, the eGFR may not accurately reflect actual GFR. Performed By: #### 2 4323-8 ####[facility] LABCLIA [id number] [place] [address] Glucose [Mass/Vol] 86 mg/dL Normal 74-[address] [facility] Comment on above: Order Comment: Vicki tovar Type: BLOOD SPECIMENOrdering Facility: [facility] Address: [address] [place] [address] Result Comment: The [place] Diabetes Association (ADA) provides guidance for cutoff values for fasting glucose and random glucose. The ADA defines fasting as no caloric intake for at least 8 hours. Fasting plasma glucose results between 100 to 125 mg/dL indicate increased risk for diabetes (prediabetes).Fasting plasma glucose results greater than or equal to 126 mg/dL meet the criteria for diagnosis of diabetes. In the absence of unequivocal hyperglycemia, results should be confirmed by repeat testing. In a patient with classic symptoms of hyperglycemia or hyperglycemic crisis, random plasma glucose results greater than or equal to 200 mg/dL meet the criteria for diagnosis of diabetes.Reference: Standards of Medical Care in Diabetes 2016, [place] [employer]. Diabetes Care. 2016.39(Suppl 1). Performed By: #### 2 4323-8 ####[facility] LABCLIA [id number] [place] [address] Potassium [Moles/Vol] 4.5 mmol/L Normal 3.7-5.[address] [facility] Comment on above: Order Comment: Speci men Type: BLOOD SPECIMENOrdering Facility: [facility] Address: [address] [place] [address] Performed By: #### 2 4323-8 ####[facility] LABCLIA [id number] [place] [address] Protein [Mass/Vol] 7.0 g/dL Normal 6.3-8.[address] [facility] Comment on above: Order Comment: Speci men Type: BLOOD SPECIMENOrdering Facility: [facility] Address: [address] [place] [address] Performed By: #### 2 4323-8 ####[facility] LABCLIA [id number] [place] [address] Sodium [Moles/Vol] 141 mmol/L Normal 136-[address] [facility] Comment on above: Order Comment: Speci men Type: BLOOD SPECIMENOrdering Facility: [facility] Address: [address] [place] [address] Performed By: #### 2 4323-8 ####[facility] LABCLIA [id number] [place] [address] Urea nitrogen [Mass/Vol] 13 mg/dL Normal 9-24 [facility] Comment on above: Order Comment: Speci men Type: BLOOD SPECIMENOrdering Facility: [facility] Address: [address] [place] [address] Performed By: #### 2 4323-8 ####[facility] LABCLIA [id number] [place] [address] CBC W Auto Differential pane l (Bld)on 05-19-2023 Basophils (Bld) [#/Vol] 10*3/uL Normal <0.11 [facility] Comment on above: Order Comment: Speci men Type: BLOOD SPECIMENOrdering Facility: [facility] Address: [address] [place] [address] Performed By: #### 5 7021-8 ####[facility] LABCLIA [id number] [place] [address] Basophils/100 WBC (Bld) 0.5 % Normal [facility] Comment on above: Order Comment: Speci men Type: BLOOD SPECIMENOrdering Facility: [facility] Address: [address] [place] [address] Performed By: #### 5 7021-8 ####[facility] LABCLIA [id number] [place] [address] Differential cell count method Nom (Bld) Auto Normal [facility] Comment on above: Order Comment: Speci men Type: BLOOD SPECIMENOrdering Facility: [facility] Address: [address] [place] [address] Performed By: #### 5 7021-8 ####[facility] LABCLIA [id number] [place] [address] Eosinophils (Bld) [#/Vol] 10*3/uL Normal <0.46 [facility] Comment on above: Order Comment: Speci men Type: BLOOD SPECIMENOrdering Facility: [facility] Address: [address] [place] [address] Performed By: #### 5 7021-8 ####[facility] LABCLIA [id number] [place] [address] Eosinophils/100 WBC (Bld) 0.0 % Normal [facility] Comment on above: Order Comment: Speci men Type: BLOOD SPECIMENOrdering Facility: [facility] Address: [address] [place] [address] Performed By: #### 5 7021-8 ####[facility] LABCLIA [id number] [place] [address] Erythrocyte distribution width (RBC) [Ratio] 18.8 % High 11.5-15.0 [facility] Comment on above: Order Comment: Speci men Type: BLOOD SPECIMENOrdering Facility: [facility] Address: [address] [place] [address] Performed By: #### 5 7021-8 ####[facility] LABCLIA [id number] [place] [address] Hematocrit (Bld) [Volume fraction] 33.1 % Low 39.0-51.0 [facility] Comment on above: Order Comment: Speci men Type: BLOOD SPECIMENOrdering Facility: [facility] Address: [address] [place] [address] Performed By: #### 5 7021-8 ####[facility] LABCLIA [id number] [place] [address] Hemoglobin (Bld) [Mass/Vol] 10.3 g/dL Low 13.0-17.0 [facility] Comment on above: Order Comment: Speci men Type: BLOOD SPECIMENOrdering Facility: [facility] Address: [address] [place] [address] Performed By: #### 5 7021-8 ####[facility] LABCLIA [id number] [place] [address] Immature granulocytes (Bld) [#/Vol] 10*3/uL Normal <0.10 [facility] Comment on above: Order Comment: Speci men Type: BLOOD SPECIMENOrdering Facility: [facility] Address: [address] [place] [address] Performed By: #### 5 7021-8 ####[facility] LABCLIA [id number] [place] [address] Immature granulocytes/100 WBC (Bld) 0.2 % Normal [facility] Comment on above: Order Comment: Speci men Type: BLOOD SPECIMENOrdering Facility: [facility] Address: [address] [place] [address] Performed By: #### 5 7021-8 ####[facility] LABCLIA [id number] [place] [address] Lymphocytes (Bld) [#/Vol] 0.23 10*3/uL Low 1.00-4.00 [facility] Comment on above: Order Comment: Speci men Type: BLOOD SPECIMENOrdering Facility: [facility] Address: [address] [place] [address] Performed By: #### 5 7021-8 ####[facility] LABCLIA [id number] [place] [address] Lymphocytes/100 WBC (Bld) 5.7 % Normal [facility] Comment on above: Order Comment: Speci men Type: BLOOD SPECIMENOrdering Facility: [facility] Address: [address] [place] [address] Performed By: #### 5 7021-8 ####[facility] LABCLIA [id number] [place] [address] MCH (RBC) [Entitic mass] 29.7 pg Normal 26.0-34.0 [facility] Comment on above: Order Comment: Speci men Type: BLOOD SPECIMENOrdering Facility: [facility] Address: [address] [place] [address] Performed By: #### 5 7021-8 ####[facility] LABCLIA [id number] [place] [address] MCHC (RBC) [Mass/Vol] 31.1 g/dL Normal 30.5-36.[address] [facility] Comment on above: Order Comment: Speci men Type: BLOOD SPECIMENOrdering Facility: [facility] Address: [address] [place] [address] Performed By: #### 5 7021-8 ####[facility] LABIA [id number] [place] [address] MCV (RBC) [Entitic vol] 95.4 fL Normal 80.0-100.0 [facility] Comment on above: Order Comment: Speci men Type: BLOOD SPECIMENOrdering Facility: [facility] Address: [address] [place] [address] Performed By: #### 5 7021-8 ####[facility] LABCLIA [id number] [place] [address] Monocytes (Bld) [#/Vol] 0.11 10*3/uL Normal <0.87 [facility] Comment on above: Order Comment: Speci men Type: BLOOD SPECIMENOrdering Facility: [facility] Address: [address] [place] [address] Performed By: #### 5 7021-8 ####[facility] LABCLIA [id number] [place] [address] Monocytes/100 WBC (Bld) 2.7 % Normal [facility] Comment on above: Order Comment: Speci men Type: BLOOD SPECIMENOrdering Facility: [facility] Address: [address] [place] [address] Performed By: #### 5 7021-8 ####[facility] LABCLIA [id number] [place] [address] Neutrophils (Bld) [#/Vol] 3.70 10*3/uL Normal 1.45-7.50 [facility] Comment on above: Order Comment: Speci men Type: BLOOD SPECIMENOrdering Facility: [facility] Address: [address] [place] [address] Performed By: #### 5 7021-8 ####[facility] LABCLIA [id number] [place] [address] Neutrophils/100 WBC (Bld) 90.9 % Normal [facility] Comment on above: Order Comment: Speci men Type: BLOOD SPECIMENOrdering Facility: [facility] Address: [address] [place] [address] Performed By: #### 5 7021-8 ####[facility] LABCLIA [id number] [place] [address] Nucleated RBC (Bld) [#/Vol] 10*3/uL Normal <0.01 [facility] Comment on above: Order Comment: Speci men Type: BLOOD SPECIMENOrdering Facility: [facility] Address: [address] [place] [address] Performed By: #### 5 7021-8 ####[facility] LABCLIA [id number] [place] [address] Nucleated RBC/100 WBC (Bld) [Ratio] 0.0 /100 WBC Normal [facility] Comment on above: Order Comment: Speci men Type: BLOOD SPECIMENOrdering Facility: [facility] Address: [address] [place] [address] Performed By: #### 5 7021-8 ####[facility] LABIA [id number] [place] [address] Platelet mean volume (Bld) [Entitic vol] 8.8 fL Low 9.0-12.7 [facility] Comment on above: Order Comment: Speci men Type: BLOOD SPECIMENOrdering Facility: [facility] Address: [address] [place] [address] Performed By: #### 5 7021-8 ####[facility] LABIA [id number] [place] [address] Platelets (Bld) [#/Vol] 175 10*3/uL Normal 150-400 [facility] Comment on above: Order Comment: Speci men Type: BLOOD SPECIMENOrdering Facility: [facility] Address: [address] [place] [address] Performed By: #### 5 7021-8 ####[facility] LABIA [id number] [place] [address] RBC (Bld) [#/Vol] 3.47 10*6/uL Low 4.20-6.00 [facility] Comment on above: Order Comment: Speci men Type: BLOOD SPECIMENOrdering Facility: [facility] Address: [address] [place] [address] Performed By: #### 5 7021-8 ####[facility] LABCLIA [id number] [place] [address] WBC (Bld) [#/Vol] 4.07 10*3/uL Normal 3.70-11.00 [facility] Comment on above: Order Comment: Speci men Type: BLOOD SPECIMENOrdering Facility: [facility] Address: [address] [place] [address] Performed By: #### 5 7021-8 ####[facility] LABCLIA [id number] [place] [address] PSA [facility] 05-19-2023 Prostate specific Ag [Mass/Vol] 685.60 ng/mL High <2.60 [facility] Comment on above: Order Comment: Speci men Type: BLOOD SPECIMENOrdering Facility: [facility] Address: [address] [place] [address] Result Comment: Tota irene PSA test methodology used is the Electrochemiluminescence Immunoassay by [employer]. Total PSA values by differing methodologies cannot be interchanged.For an individual patient, the significance of a PSA level should be interpreted in a broad clinical context, including age, race, family history, digital rectal exam, prostate size, results of prior testing (prostate biopsy, free PSA, PCA3), and use of 5-alpha reductase inhibitors. Considering the high incidence of asymptomatic cancer in the general population that may not pose an ultimate risk to a patient, the decision to recommend urological evaluation or prostate biopsy should be individualized after consideration of all these factors.REFERENCE:Ayla Arriaga M.D., M.P.H., Tl Betancourt M.D., Ph.D., Buster Church M.D., Lyubov Christiansen, M.P.H., Lawanda Ross Sc.D. Effect of Verification Bias on Screening for Prostate Cancer by Measurement of Prostatic Specific Antigen. N Engl J Med 2003,349:335-42. Performed By: #### 2 857-1 ####[facility] LABCLIA [id number] [facility] [address] Testost Clivel-mCncon 12-28-2 023 Testosterone [Mass/Vol] ng/dL Low 193-824 [facility] Comment on above: Order Comment: Speci men Type: BLOOD SPECIMENOrdering Facility: [facility] Address: [address] [place] [address] Result Comment: A te stosterone level in the 193-320 ng/dL range with associated clinical symptoms is considered low and may indicate hypogonadism (from [facility] 2009 363:123-135). Results >320 ng/dL are considered normal.Result rechecked. Performed By: #### 2 986-8 ####[facility] LABCLIA [id number] [address] [facility] Ambulatory Visit Summaryon 1 07-18-2022 Ambulatory Visit Summary KARIN MART :1940 Visit Date:05/17/2023 Ambulatory Visit Instructions Your Diagnosis Cough Bronchitis BMI 22.0-22.9, adult Former smoker Your Care Team Attending Physician - Sveta Yusuf Primary Care Physician - Chayito Duarte MD. This Is Your Medications List Misc Prescription Misc Prescription (Ibeth Guillen, 5 years.) Misc Prescription (Lift chair) abiraterone (abiraterone 250 mg oral tablet) acetaminophen-hydrocodone (acetaminophen-hydrocodon e 325 mg-5 mg oral tablet) benzonatate (benzonatate 200 mg oral capsule) calcium-vitamin D (Calcium 600 D Tab) denosumab methylPREDNISolone (Medrol 4 mg Tab) naproxen (Aleve) tamsulosin (tamsulosin 0.4 mg Cap) Procedures Performed Transrectal needle biopsy of prostate (12/02/2021), Transrectal biopsy of prostate using ultrasound (US) guidance (08/22/2018), Transrectal biopsy of prostate using ultrasound (US) guidance (04/09/2009), Transrectal biopsy of prostate using ultrasound (US) guidance (02/18/2009), Angioplasty, Cataract extraction and insertion of intraocular lens, Colonoscopy, Tonsillectomy, Vasectomy. Discharge Vitals Temperature (Tympanic) 37.3 ?C Heart Rate (Peripheral) 64 Respiratory Rate 20 Blood Pressure 128/64 Height 173 cm Height 68 in Weight 67.9 kg Weight 149.38 lb BMI 22.69 What to do next Scheduled Follow-Up Appointments Tuesday 10:15 AM EST With: Isa MULLER MD Where: [facility] Invalid Interpretation Code [address] [place] [address]- \.br\ Tuesday 9:30 AM EDT \.br\ With:\.br\ Where: [facility] Family Medicine [facility] Family Medicine Office/Clini c Noteon 05-17-2023 Family Medicine Office/Clinic Note HPI Staff Karin is a 82 year old male presenting for acute sick visit Respiratory C/O: Onset: 1.5 weeks Body aches: no Chest congestion: no Chills: no Cough: yes Sputum production: yes white Sore throat: Ear complaints: no Eye itching/watering: no Fever: no Headache: no Nasal congestion: no Nasal discharge: no Poor appetite: no Reduced activity: no Sinus pain/pressure: no Sneezing: no Wheezing: yes Ill contacts: no Remedies tried: Mucinex, Cold/cough tablets Questions/Concerns: History of Present Illness pt presents today for cough for about 10 days Review of Systems PHQ Score Initial Depression Screen Score: 0 SCORE ROS - Provider Constitutional: no fever, no chills, no sweats, no fatigue Respiratory: no shortness of breath, yes cough, no orthopnea, no wheezing. Cardiovascular: no chest pain, no palpitations, no edema. Neurologic: no headache, no dizziness, no numbness, no weakness. Physical Exam Vitals & Measurements T: 37.3 ?C(Tympanic) HR: 64(Peripheral) RR: 20 BP: 128/64 SpO2: 94% HT: 68 in HT: 173 cm WT: 67.9 kg WT: 149.38 lb BMI: 22.69 General: alert, no acute distress ENMT: oral mucosa moist, no pharyngeal erythema or exudate Cardiovascular: regular rate and rhythm, normal peripheral perfusion Respiratory: Lungs CTA, respirations non labored Extremities: no deformity, no trauma Neurological: oriented x 4, LOC appropriate for age, CN II-XII intact, motor strength equal & normal bilaterally, speech normal Assessment/Plan 1. Cough (R05.9: Cough, unspecified) pt has been coughing for about 10 days. no fever. will treat with steroid and tessalon pearls. if pt gets worse or gets a fever they will call in for antibiotics. RTC as needed Ordered: benzonatate, 200 mg = 1 cap(s), Oral, TID, X 7 day(s), # 21 cap(s), Refills(s) 0, [facility]acy: [facility]/pharmacy #[id number], 173, cm, 05/17/23 15:23:00 EST, Height/Length Dosing, 67.9, kg, 05/17/23 15:23:00 EST, Weight Dosing methylPREDNISolone, = 1 packet(s), Oral, As Directed, as directed on package labeling, X 6 day(s), # 21 tab(s), Refills(s) 0, Pharmacy: [facility]/pharmacy #[id number], 173, cm, 05/17/23 15:23:00 EST, Height/Length Dosing, 67.9, kg, 05/17/23 15:23:00 EST, Weight Dosing 2. Bronchitis (J40: Bronchitis, not specified as acute or chronic) cough with white phlegm Ordered: benzonatate, 200 mg = 1 cap(s), Oral, TID, X 7 day(s), # 21 cap(s), Refills(s) 0, Pharmacy: [facility]/pharmacy #[id number], 173, cm, 05/17/23 15:23:00 EST, Height/Length Dosing, 67.9, kg, 05/17/23 15:23:00 EST, Weight Dosing methylPREDNISolone, = 1 packet(s), Oral, As Directed, as directed on package labeling, X 6 day(s), # 21 tab(s), Refills(s) 0, Pharmacy: [facility]/pharmacy #[id number], 173, cm, 05/17/23 15:23:00 EST, Height/Length Dosing, 67.9, kg, 05/17/23 15:23:00 EST, Weight Dosing 3. BMI 22.0-22.9, adult (Z68.22: Body mass index [BMI] 22.0-22.9, adult) BMI education complete Ordered: benzonatate, 200 mg = 1 cap(s), Oral, TID, X 7 day(s), # 21 cap(s), Refills(s) 0, [id number], cm, 05/17/23 15:23:00 EST, Height/Length Dosing, 67.9, kg, 05/17/23 15:23:00 EST, Weight Dosing methylPREDNISolone, = 1 packet(s), Oral, As Directed, as directed on package labeling, X 6 day(s), # 21 tab(s), Refills(s) 0, [id number], 173, cm, 05/17/23 15:23:00 EST, Height/Length Dosing, 67.9, kg, 05/17/23 15:23:00 EST, Weight Dosing 4. 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) continue not smoking Ordered: benzonatate, 200 mg = 1 cap(s), Oral, TID, X 7 day(s), # 21 cap(s), Refills(s) 0, [id number], 173, cm, 05/17/23 15:23:00 EST, Height/Length Dosing, 67.9, kg, 05/17/23 15:23:00 EST, Weight Dosing methylPREDNISolone, = 1 packet(s), Oral, As Directed, as directed on package labeling, X 6 day(s), # 21 tab(s), Refills(s) 0, [id number], 173, cm, 05/17/23 15:23:00 EST, Height/Length Dosing, 67.9, kg, 05/17/23 15:23:00 EST, Weight Dosing Follow-up No qualifying data available Problem List/Past Medical History Ongoing Abscess BPH (benign prostatic hyperplasia) Bronchitis Cancer related pain Cough Elevated PSA Ex-smoker Gross hematuria Mixed hyperlipidemia Nocturia Penile edema Prostate cancer Prostate cancer metastatic to bone Skin infection Urgency of urination Historical No qualifying data Procedure/Surgical History Transrectal needle biopsy of prostate (12/02/2021), Transrectal biopsy of prostate using ultrasound (US) guidance (08/22/2018), Transrectal biopsy of prostate using ultrasound (US) guidance (04/09/2009), Transrectal biopsy of prostate using ultrasound (US) guidance (02/18/2009), Angioplasty, Cataract extraction and insertion of intraocular lens, Colonoscopy, Tonsillectomy, Vasectomy. Medications abiraterone 250 mg oral tablet, 1000 mg= 4 tab(s), Oral, Daily acetaminophen-hydrocodone 325 mg-5 mg oral tablet Aleve, 200 mg, Oral, q12hr benzonatate 200 mg oral c (more content not included)... Normal [facility] Comment on above: Result Comment: Elec tronically Signed By: Reid CLARK, Sveta Bonilla\.br\Date and Time Signed: 05/17/23 15:38 EST CBC W Auto Differential pane l (Bld)on 05-12-2023 Basophils (Bld) [#/Vol] 0.07 10*3/uL Normal <0.11 [facility] Comment on above: Order Comment: Speci men Type: BLOOD SPECIMENOrdering Facility: [facility] Address: [address] [place] [address] Performed By: #### 5 7021-8 ####[facility] LABCLIA [id number] [place] [address] Basophils/100 WBC (Bld) 2.2 % Normal [facility] Comment on above: Order Comment: Speci men Type: BLOOD SPECIMENOrdering Facility: [facility] Address: [address] [place] [address] Performed By: #### 5 7021-8 ####[facility] LABCLIA [id number] [place] [address] Differential cell count method Nom (Bld) Auto Normal [facility] Comment on above: Order Comment: Speci men Type: BLOOD SPECIMENOrdering Facility: [facility] Address: [address] [place] [address] Performed By: #### 5 7021-8 ####[facility] LABCLIA [id number] [place] [address] Eosinophils (Bld) [#/Vol] 0.03 10*3/uL Normal <0.46 [facility] Comment on above: Order Comment: Speci men Type: BLOOD SPECIMENOrdering Facility: [facility] Address: [address] [place] [address] Performed By: #### 5 7021-8 ####[facility] LABCLIA [id number] [place] [address] Eosinophils/100 WBC (Bld) 0.9 % Normal [facility] Comment on above: Order Comment: Speci men Type: BLOOD SPECIMENOrdering Facility: [facility] Address: [address] [place] [address] Performed By: #### 5 7021-8 ####[facility] LABCLIA [id number] [place] [address] Erythrocyte distribution width (RBC) [Ratio] 18.5 % High 11.5-15.0 [facility] Comment on above: Order Comment: Speci men Type: BLOOD SPECIMENOrdering Facility: [facility] Address: [address] [place] [address] Performed By: #### 5 7021-8 ####[facility] LABCLIA [id number] [place] [address] Hematocrit (Bld) [Volume fraction] 32.4 % Low 39.0-51.0 [facility] Comment on above: Order Comment: Speci men Type: BLOOD SPECIMENOrdering Facility: [facility] Address: [address] [place] [address] Performed By: #### 5 7021-8 ####[facility] LABCLIA [id number] [place] [address] Hemoglobin (Bld) [Mass/Vol] 10.3 g/dL Low 13.0-17.0 [facility] Comment on above: Order Comment: Speci men Type: BLOOD SPECIMENOrdering Facility: [facility] Address: [address] [place] [address] Performed By: #### 5 7021-8 ####[facility] LABCLIA [id number] [place] [address] Immature granulocytes (Bld) [#/Vol] 10*3/uL Normal <0.10 [facility] Comment on above: Order Comment: Speci men Type: BLOOD SPECIMENOrdering Facility: [facility] Address: [address] [place] [address] Performed By: #### 5 7021-8 ####[facility] LABCLIA [id number] [place] [address] Immature granulocytes/100 WBC (Bld) 0.3 % Normal [facility] Comment on above: Order Comment: Speci men Type: BLOOD SPECIMENOrdering Facility: [facility] Address: [address] [place] [address] Performed By: #### 5 7021-8 ####[facility] LABCLIA [id number] [place] [address] Lymphocytes (Bld) [#/Vol] 0.37 10*3/uL Low 1.00-4.00 [facility] Comment on above: Order Comment: Speci men Type: BLOOD SPECIMENOrdering Facility: [facility] Address: [address] [place] [address] Performed By: #### 5 7021-8 ####[facility] LABCLIA [id number] [place] [address] Lymphocytes/100 WBC (Bld) 11.7 % Normal [facility] Comment on above: Order Comment: Speci men Type: BLOOD SPECIMENOrdering Facility: [facility] Address: [address] [place] [address] Performed By: #### 5 7021-8 ####[facility] LABCLIA [id number] [place] [address] MCH (RBC) [Entitic mass] 29.4 pg Normal 26.0-34.0 [facility] Comment on above: Order Comment: Speci men Type: BLOOD SPECIMENOrdering Facility: [facility] Address: [address] [place] [address] Performed By: #### 5 7021-8 ####[facility] LABCLIA [id number] [place] [address] MCHC (RBC) [Mass/Vol] 31.8 g/dL Normal 30.5-36.[address] [facility] Comment on above: Order Comment: Speci men Type: BLOOD SPECIMENOrdering Facility: [facility] Address: [address] [place] [address] Performed By: #### 5 7021-8 ####[facility] LABCLIA [id number] [place] [address] MCV (RBC) [Entitic vol] 92.6 fL Normal 80.0-100.0 [facility] Comment on above: Order Comment: Speci men Type: BLOOD SPECIMENOrdering Facility: [facility] Address: [address] [place] [address] Performed By: #### 5 7021-8 ####[facility] LABCLIA [id number] [place] [address] Monocytes (Bld) [#/Vol] 0.34 10*3/uL Normal <0.87 [facility] Comment on above: Order Comment: Speci men Type: BLOOD SPECIMENOrdering Facility: [facility] Address: [address] [place] [address] Performed By: #### 5 7021-8 ####[facility] LABCLIA [id number] [place] [address] Monocytes/100 WBC (Bld) 10.8 % Normal [facility] Comment on above: Order Comment: Speci men Type: BLOOD SPECIMENOrdering Facility: [facility] Address: [address] [place] [address] Performed By: #### 5 7021-8 ####[facility] LABCLIA [id number] [place] [address] Neutrophils (Bld) [#/Vol] 2.34 10*3/uL Normal 1.45-7.50 [facility] Comment on above: Order Comment: Speci men Type: BLOOD SPECIMENOrdering Facility: [facility] Address: [address] [place] [address] Performed By: #### 5 7021-8 ####[facility] LABCLIA [id number] [place] [address] Neutrophils/100 WBC (Bld) 74.1 % Normal [facility] Comment on above: Order Comment: Speci men Type: BLOOD SPECIMENOrdering Facility: [facility] Address: [address] [place] [address] Performed By: #### 5 7021-8 ####[facility] LABCLIA [id number] [place] [address] Nucleated RBC (Bld) [#/Vol] 10*3/uL Normal <0.01 [facility] Comment on above: Order Comment: Speci men Type: BLOOD SPECIMENOrdering Facility: [facility] Address: [address] [place] [address] Performed By: #### 5 7021-8 ####[facility] LABCLIA [id number] [place] [address] Nucleated RBC/100 WBC (Bld) [Ratio] 0.0 /100 WBC Normal [facility] Comment on above: Order Comment: Speci men Type: BLOOD SPECIMENOrdering Facility: [facility] Address: [address] [place] [address] Performed By: #### 5 7021-8 ####[facility] LABCLIA [id number] [place] [address] Platelet mean volume (Bld) [Entitic vol] 8.6 fL Low 9.0-12.7 [facility] Comment on above: Order Comment: Speci men Type: BLOOD SPECIMENOrdering Facility: [facility] Address: [address] [place] [address] Performed By: #### 5 7021-8 ####[facility] LABCLIA [id number] [place] [address] Platelets (Bld) [#/Vol] 216 10*3/uL Normal 150-400 [facility] Comment on above: Order Comment: Speci men Type: BLOOD SPECIMENOrdering Facility: [facility] Address: [address] [place] [address] Performed By: #### 5 7021-8 ####[facility] LABCLIA [id number] [place] [address] RBC (Bld) [#/Vol] 3.50 10*6/uL Low 4.20-6.00 [facility] Comment on above: Order Comment: Speci men Type: BLOOD SPECIMENOrdering Facility: [facility] Address: [address] [place] [address] Performed By: #### 5 7021-8 ####[facility] [id number] [place] [address] WBC (Bld) [#/Vol] 3.16 10*3/uL Low 3.70-11.00 [facility] Comment on above: Order Comment: Speci men Type: BLOOD SPECIMENOrdering Facility: [facility] Address: [address] [place] [address] Performed By: #### 5 7021-8 ####[facility] LABIA [id number] [place] [address] Consultation Noteon 05-11-20 Consultation Note [id number]#[id number] Normal [facility] CBC W Auto Differential pane l (Bld)on 05-05-2023 Basophils (Bld) [#/Vol] 0.05 10*3/uL Normal <0.11 [facility] Comment on above: Order Comment: Speci men Type: BLOOD SPECIMENOrdering Facility: [facility] Address: [address] [place] [address] Performed By: #### 5 7021-8 ####[facility] LABIA [id number] [place] [address] Basophils/100 WBC (Bld) 1.5 % Normal [facility] Comment on above: Order Comment: Speci men Type: BLOOD SPECIMENOrdering Facility: [facility] Address: [address] [place] [address] Performed By: #### 5 7021-8 ####[facility] LABCLIA [id number] [place] [address] Differential cell count method Nom (Bld) Auto Normal [facility] Comment on above: Order Comment: Speci men Type: BLOOD SPECIMENOrdering Facility: [facility] Address: [address] [place] [address] Performed By: #### 5 7021-8 ####[facility] LABCLIA [id number] [place] [address] Eosinophils (Bld) [#/Vol] 0.04 10*3/uL Normal <0.46 [facility] Comment on above: Order Comment: Speci men Type: BLOOD SPECIMENOrdering Facility: [facility] Address: [address] [place] [address] Performed By: #### 5 7021-8 ####[facility] LABCLIA [id number] [place] [address] Eosinophils/100 WBC (Bld) 1.2 % Normal [facility] Comment on above: Order Comment: Speci men Type: BLOOD SPECIMENOrdering Facility: [facility] Address: [address] [place] [address] Performed By: #### 5 7021-8 ####[facility] LABCLIA [id number] [place] [address] Erythrocyte distribution width (RBC) [Ratio] 18.4 % High 11.5-15.0 [facility] Comment on above: Order Comment: Speci men Type: BLOOD SPECIMENOrdering Facility: [facility] Address: [address] [place] [address] Performed By: #### 5 7021-8 ####[facility] LABCLIA [id number] [place] [address] Hematocrit (Bld) [Volume fraction] 33.0 % Low 39.0-51.0 [facility] Comment on above: Order Comment: Speci men Type: BLOOD SPECIMENOrdering Facility: [facility] Address: [address] [place] [address] Performed By: #### 5 7021-8 ####[facility] LABCLIA [id number] [place] [address] Hemoglobin (Bld) [Mass/Vol] 10.3 g/dL Low 13.0-17.0 [facility] Comment on above: Order Comment: Speci men Type: BLOOD SPECIMENOrdering Facility: [facility] Address: [address] [place] [address] Performed By: #### 5 7021-8 ####[facility] LABCLIA [id number] [place] [address] Immature granulocytes (Bld) [#/Vol] 10*3/uL Normal <0.10 [facility] Comment on above: Order Comment: Speci men Type: BLOOD SPECIMENOrdering Facility: [facility] Address: [address] [place] [address] Performed By: #### 5 7021-8 ####[facility] LABCLIA [id number] [place] [address] Immature granulocytes/100 WBC (Bld) 0.6 % Normal [facility] Comment on above: Order Comment: Speci men Type: BLOOD SPECIMENOrdering Facility: [facility] Address: [address] [place] [address] Performed By: #### 5 7021-8 ####[facility] LABCLIA [id number] [place] [address] Lymphocytes (Bld) [#/Vol] 0.36 10*3/uL Low 1.00-4.00 [facility] Comment on above: Order Comment: Speci men Type: BLOOD SPECIMENOrdering Facility: [facility] Address: [address] [place] [address] Performed By: #### 5 7021-8 ####[facility] LABCLIA [id number] [place] [address] Lymphocytes/100 WBC (Bld) 10.9 % Normal [facility] Comment on above: Order Comment: Speci men Type: BLOOD SPECIMENOrdering Facility: [facility] Address: [address] [place] [address] Performed By: #### 5 7021-8 ####[facility] LABCLIA [id number] [place] [address] MCH (RBC) [Entitic mass] 28.9 pg Normal 26.0-34.0 [facility] Comment on above: Order Comment: Speci men Type: BLOOD SPECIMENOrdering Facility: [facility] Address: [address] [place] [address] Performed By: #### 5 7021-8 ####[facility] LABCLIA [id number] [place] [address] MCHC (RBC) [Mass/Vol] 31.2 g/dL Normal 30.5-36.[address] [facility] Comment on above: Order Comment: Speci men Type: BLOOD SPECIMENOrdering Facility: [facility] Address: [address] [place] [address] Performed By: #### 5 7021-8 ####[facility] LABCLIA [id number] [place] [address] MCV (RBC) [Entitic vol] 92.7 fL Normal 80.0-100.0 [facility] Comment on above: Order Comment: Speci men Type: BLOOD SPECIMENOrdering Facility: [facility] Address: [address] [place] [address] Performed By: #### 5 7021-8 ####[facility] LABCLIA [id number] [place] [address] Monocytes (Bld) [#/Vol] 0.31 10*3/uL Normal <0.87 [facility] Comment on above: Order Comment: Speci men Type: BLOOD SPECIMENOrdering Facility: [facility] Address: [address] [place] [address] Performed By: #### 5 7021-8 ####[facility] LABCLIA [id number] [place] [address] Monocytes/100 WBC (Bld) 9.4 % Normal [facility] Comment on above: Order Comment: Speci men Type: BLOOD SPECIMENOrdering Facility: [facility] Address: [address] [place] [address] Performed By: #### 5 7021-8 ####[facility] LABCLIA [id number] [place] [address] Neutrophils (Bld) [#/Vol] 2.53 10*3/uL Normal 1.45-7.50 [facility] Comment on above: Order Comment: Speci men Type: BLOOD SPECIMENOrdering Facility: [facility] Address: [address] [place] [address] Performed By: #### 5 7021-8 ####[facility] LABIA [id number] [place] [address] Neutrophils/100 WBC (Bld) 76.4 % Normal [facility] Comment on above: Order Comment: Speci men Type: BLOOD SPECIMENOrdering Facility: [facility] Address: [address] [place] [address] Performed By: #### 5 7021-8 ####[facility] LABCLIA [id number] [place] [address] Nucleated RBC (Bld) [#/Vol] 10*3/uL Normal <0.01 [facility] Comment on above: Order Comment: Speci men Type: BLOOD SPECIMENOrdering Facility: [facility] Address: [address] [place] [address] Performed By: #### 5 7021-8 ####[facility] LABCLIA [id number] [place] [address] Nucleated RBC/100 WBC (Bld) [Ratio] 0.0 /100 WBC Normal [facility] Comment on above: Order Comment: Speci men Type: BLOOD SPECIMENOrdering Facility: [facility] Address: [address] [place] [address] Performed By: #### 5 7021-8 ####[facility] LABCLIA [id number] [place] [address] Platelet mean volume (Bld) [Entitic vol] 8.3 fL Low 9.0-12.7 [facility] Comment on above: Order Comment: Speci men Type: BLOOD SPECIMENOrdering Facility: [facility] Address: [address] [place] [address] Performed By: #### 5 7021-8 ####[facility] LABCLIA [id number] [place] [address] Platelets (Bld) [#/Vol] 224 10*3/uL Normal 150-400 [facility] Comment on above: Order Comment: Speci men Type: BLOOD SPECIMENOrdering Facility: [facility] Address: [address] [place] [address] Performed By: #### 5 7021-8 ####[facility] LABCLIA [id number] [place] [address] RBC (Bld) [#/Vol] 3.56 10*6/uL Low 4.20-6.00 [facility] Comment on above: Order Comment: Speci men Type: BLOOD SPECIMENOrdering Facility: [facility] Address: [address] [place] [address] Performed By: #### 5 7021-8 ####[facility] LABCLIA [id number] [place] [address] WBC (Bld) [#/Vol] 3.31 10*3/uL Low 3.70-11.00 [facility] Comment on above: Order Comment: Speci men Type: BLOOD SPECIMENOrdering Facility: [facility] Address: [address] [place] [address] Performed By: #### 5 7021-8 ####[facility] LABCLIA [id number] [place] [address] CNOVSPon 05-05-2023 CNOVSP Normal [facility] metabolic 2000 panelon 05-05-2023 Albumin [Mass/Vol] 3.9 g/dL Normal 3.9-4.[address] [facility] Comment on above: Order Comment: Speci men Type: BLOOD SPECIMENOrdering Facility: [facility] Address: [address] [place] [address] Performed By: #### 2 4323-8 ####[facility] LABCLIA [id number] [place] [address] ALP [Catalytic activity/Vol] 1089 U/L High 38-113 [facility] Comment on above: Order Comment: Speci men Type: BLOOD SPECIMENOrdering Facility: [facility] Address: [address] [place] [address] Performed By: #### 2 4323-8 ####[facility] LABCLIA [id number] [place] [address] ALT [Catalytic activity/Vol] 28 U/L Normal 10-54 [facility] Comment on above: Order Comment: Speci men Type: BLOOD SPECIMENOrdering Facility: [facility] Address: [address] [place] [address] Performed By: #### 2 4323-8 ####[facility] LABCLIA [id number] [place] [address] Anion gap [Moles/Vol] 8 mmol/L Low 9-[address] [facility] Comment on above: Order Comment: Speci men Type: BLOOD SPECIMENOrdering Facility: [facility] Address: [address] [place] [address] Performed By: #### 2 4323-8 ####[facility] LABCLIA [id number] [place] [address] AST [Catalytic activity/Vol] 34 U/L Normal 14-40 [facility] Comment on above: Order Comment: Speci men Type: BLOOD SPECIMENOrdering Facility: [facility] Address: [address] [place] [address] Performed By: #### 2 4323-8 ####[facility] LABCLIA [id number] [place] [address] Bilirubin [Mass/Vol] 0.3 mg/dL Normal 0.2-1.3 [facility] Comment on above: Order Comment: Speci men Type: BLOOD SPECIMENOrdering Facility: [facility] Address: [address] [place] [address] Performed By: #### 2 4323-8 ####[facility] LABCLIA [id number] [place] [address] Calcium [Mass/Vol] 8.6 mg/dL Normal 8.5-10.[address] [facility] Comment on above: Order Comment: Speci men Type: BLOOD SPECIMENOrdering Facility: [facility] Address: [address] [place] [address] Performed By: #### 2 4323-8 ####[facility] LABCLIA [id number] [place] [address] Chloride [Moles/Vol] 105 mmol/L Normal 97-105 [facility] Comment on above: Order Comment: Speci men Type: BLOOD SPECIMENOrdering Facility: [facility] Address: [address] [place] [address] Performed By: #### 2 4323-8 ####[facility] LABCLIA [id number] [place] [address] CO2 [Moles/Vol] 24 mmol/L Normal 22-30 [facility] Comment on above: Order Comment: Speci men Type: BLOOD SPECIMENOrdering Facility: [facility] Address: [address] [place] [address] Performed By: #### 2 4323-8 ####[facility] LABCLIA [id number] [place] [address] Creatinine [Mass/Vol] 0.86 mg/dL Normal 0.73-1.[address] [facility] Comment on above: Order Comment: Speci men Type: BLOOD SPECIMENOrdering Facility: [facility] Address: [address] [place] [address] Performed By: #### 2 4323-8 ####[facility] LABCLIA [id number] [place] [address] Creatinine and Glomerular filtration rate.predicted panel (S/P/Bld) 86 mL/min/1.73m??? Normal >=60 [facility] Comment on above: Order Comment: Speci men Type: BLOOD SPECIMENOrdering Facility: [facility] Address: [address] [place] [address] Result Comment: Christelle mated Glomerular Filtration Rate (eGFR) is calculated using the 2020 CKD-EPI creatinine equation. This equation utilizes serum creatinine, sex, and age as parameters. The creatinine assay has traceable calibration to isotope dilution-mass spectrometry. Refer to KDIGO guidelines for clinical interpretation. In patients with unstable renal function, e.g. those with acute kidney injury, the eGFR may not accurately reflect actual GFR. Performed By: #### 2 4323-8 ####[facility] LABCLIA [id number] [place] [address] Glucose [Mass/Vol] 125 mg/dL High 74-[address] [facility] Comment on above: Order Comment: Speci men Type: BLOOD SPECIMENOrdering Facility: [facility] Address: [address] [place] [address] Result Comment: The [place] [employer] (ADA) provides guidance for cutoff values for fasting glucose and random glucose. The ADA defines fasting as no caloric intake for at least 8 hours. Fasting plasma glucose results between 100 to 125 mg/dL indicate increased risk for diabetes (prediabetes).Fasting plasma glucose results greater than or equal to 126 mg/dL meet the criteria for diagnosis of diabetes. In the absence of unequivocal hyperglycemia, results should be confirmed by repeat testing. In a patient with classic symptoms of hyperglycemia or hyperglycemic crisis, random plasma glucose results greater than or equal to 200 mg/dL meet the criteria for diagnosis of diabetes.Reference: Standards of Medical Care in Diabetes 2016, [place] [employer]. Diabetes Care. 2016.39(Suppl 1). Performed By: #### 2 4323-8 ####[facility] LABCLIA [id number] [place] [address] Potassium [Moles/Vol] 4.3 mmol/L Normal 3.7-5.[address] [facility] Comment on above: Order Comment: Speci men Type: BLOOD SPECIMENOrdering Facility: [facility] Address: [address] [place] [address] Performed By: #### 2 4323-8 ####[facility] LABCLIA [id number] [place] [address] Protein [Mass/Vol] 6.5 g/dL Normal 6.3-8.[address] [facility] Comment on above: Order Comment: Speci men Type: BLOOD SPECIMENOrdering Facility: [facility] Address: [address] [place] [address] Performed By: #### 2 4323-8 ####[facility] LABCLIA [id number] [place] [address] Sodium [Moles/Vol] 137 mmol/L Normal 136-[address] [facility] Comment on above: Order Comment: Speci men Type: BLOOD SPECIMENOrdering Facility: [facility] Address: [address] [place] [address] Performed By: #### 2 4323-8 ####[facility] LABCLIA [id number] [place] [address] Urea nitrogen [Mass/Vol] 17 mg/dL Normal 9-24 [facility] Comment on above: Order Comment: Speci men Type: BLOOD SPECIMENOrdering Facility: [facility] Address: [address] [place] [address] Performed By: #### 2 4323-8 ####[facility] LABCLIA [id number] [place] [address] XR FEMUR 2V AP/LAT LTon 04-22 XR FEMUR 2V AP/LAT LT Normal [facility] XR HIP 3V PELV+ AP/LAT LTon 05-05-2023 XR HIP 3V PELV+ AP/LAT LT Normal [facility] XR SACRUM/COCCYX 3V AP/LATon 05-05-2023 XR SACRUM/COCCYX 3V AP/LAT Normal [facility] CNPNon 05-03-2023 CNPN Normal [facility] Family Medicine Office/Clini c Noteon 05-02-2023 Family Medicine Office/Clinic Note HPI Staff Pt is an 82 yo m, presenting with swelling in his groin area. Pt is currently getting blood transfusion in preperation for cancer treatment. Pt is currently on [place] as well for pain Onset: This AM Location: Below his penis Duration: History of Present Illness Karin Mart is an 82-year-old male who presents today for a follow-up evaluation of left buttock pain. The patient continues to experience left buttock pain. He consulted a nurse at a downtown clinic who recommended an x-ray to rule out fractures. The patient denies any falls but mentions that the pain intensifies when moving furniture. He has been managing his pain with Coricidin and narcotic alternating between them every 4 hours then take Aleve on the other 2 hours. This regimen appears to control his pain effectively. He was due for another injection, but after receiving 2 units of blood at [facility] on 04/25/2023, his total blood count reached 10 units, the required level for his scheduled radiation therapy on 04/27/2023. Upon waking up, he noticed edema below the glans penis, which is not painful but is concerning. He attributes this to the 4 units of blood received over the past 2 weeks. He is currently under the care of Dr. Muller for this issue. He reports no pain during urination or when physically handling his penis. He is scheduled to receive a hormone shot at the end of 04/2023. He also mentioned that he was not prescribed Lasix. He expressed a desire for a handicap placard. Review of Systems PHQ Score Initial Depression Screen Score: 0 SCORE Physical Exam Vitals & Measurements T: 36.7 ?C(Temporal Artery) HR: 82(Peripheral) RR: 20 BP: 122/78 SpO2: 99% HT: 68 in HT: 173 cm WT: 73.1 kg WT: 160.82 lb BMI: 24.42 General: alert, no acute distress Extremities: no deformity, no trauma Neurological: oriented x 4, LOC appropriate for age, CN II-XII intact, motor strength equal & normal bilaterally, speech normal Genitourinary: The shaft of the penis is extremely edematous. No erythema. No signs of balanitis. No change in color. No need for retraction of the foreskin as the foreskin is not impeding the penis. The os is completely open for urination. Assessment/Plan 1. Penile edema (N48.89: Other specified disorders of penis) This is most likely secondary to transfusions. The patient also has had a 7-pound weight gain since 04/11/2023, so this most likely is increase in fluid. We will have the patient do gentle compression of the penis to see if the fluid goes down and if that happens, then there is nothing to worry about. I did speak to the urologist for further recommendation and the urology [employer] was the one recommended simple constriction of the penis to help with that fluid. 2. 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 The patient is not ready for that currently, but the patient would like a handicap placard so he has less to ambulate. We will see the patient back in a month. 3. BMI 24.0-24.9, adult (Z68.24: Body mass index [BMI] 24.0-24.9, adult) 4. 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) Portions of this record may have been created with voice recognition artificial intelligence software, specifically [employer], 7digital and or [employer]. Substitutions may have occurred due to the inherent limitations of voice recognition and artificial intelligence software Documentation services were performed after patient or guardian consented to allow [employer] to record this visit. MAMI customer management specialist and provider reviewed before signing. MAMI: Namita Cole. Follow-up No qualifying data available Problem List/Past Medical History Ongoing Abscess BPH (benign prostatic hyperplasia) Cancer related pain Elevated PSA Ex-smoker Gross hematuria Mixed hyperlipidemia Nocturia Penile edema Prostate cancer Prostate cancer metastatic to bone Skin infection Urgency of urination Historical No qualifying data Procedure/Surgical History Transrectal needle biopsy of prostate (12/02/2021), Transrectal biopsy of prostate using ultrasound (US) guidance (08/22/2018), Transrectal biopsy of prostate using ultrasound (US) guidance (04/09/2009), Transrectal biopsy of prostate using ultrasound (US) guidance (02/18/2009), Angioplasty, Cataract extraction and insertion of intraocular lens, Colonoscopy, Tonsillectomy, Vasectomy. Medications abiraterone 250 mg oral tablet, 1000 mg= 4 tab(s), Oral, Daily, Not taking acetaminophen-hydrocodone 325 mg-5 mg oral tablet Aleve, 200 mg, Oral, q12hr Calcium 600 D Tab, Oral, BID denosumab, See Instructions Handicap Placard, 5 years., See Instructions Lift chair, See Instructions Misc Prescription, 0 tamsulosin 0.4 mg Cap, 0.4 mg= 1 cap(s), Oral, BID, 3 refills Allergies No Known Medication Allergies Social History Alcohol Current, (more content not included)... Normal [facility] Comment on above: Result Comment: Elec tronically Signed By: Chayito Duarte MD\.br\Date and Time Signed: 05/02/23 12:32 EST\.br\Electronically Co-Signed By: Brandi Tay\.br\Date and Time Co-Signed: 04/26/23 19:57 EST NM THERAPY SCARLETT-177 PSMAon NM THERAPY SCARLETT-177 PSMA Normal [facility] Ambulatory Visit Summaryon 1 06-27-2022 Ambulatory Visit Summary LISBETHKARIN :1940 Visit Date:04/26/2023 Ambulatory Visit Instructions Your Care Team Attending Physician - Chayito Duarte MD Primary Care Physician - Chayito Duarte MD This Is Your Medications List Misc Prescription Misc Prescription (Lift chair) abiraterone (abiraterone 250 mg oral tablet) acetaminophen-hydrocodone (acetaminophen-hydrocodon e 325 mg-5 mg oral tablet) calcium-vitamin D (Calcium 600 D Tab) denosumab naproxen (Aleve) tamsulosin (tamsulosin 0.4 mg Cap) Procedures Performed Transrectal needle biopsy of prostate (12/02/2021), Transrectal biopsy of prostate using ultrasound (US) guidance (08/22/2018), Transrectal biopsy of prostate using ultrasound (US) guidance (04/09/2009), Transrectal biopsy of prostate using ultrasound (US) guidance (02/18/2009), Angioplasty, Cataract extraction and insertion of intraocular lens, Colonoscopy, Tonsillectomy, Vasectomy. Discharge Vitals Temperature (Temporal Artery) 36.7 ?C Heart Rate (Peripheral) 82 Respiratory Rate 20 Blood Pressure 122/78 Height 173 cm Height 68 in Weight 73.1 kg Weight 160.82 lb BMI 24.42 What to do next Scheduled Follow-Up Appointments Tuesday 10:15 AM EST With: RENZO MCGARRY, Isa Son Where: [facility] Invalid Interpretation Code [address] [place] [address]- \.br\ Tuesday 9:30 AM EDT \.br\ With:\.br\ Where: [facility] CBC W Auto Differential pane l (Bld)on 04-26-2023 Basophils (Bld) [#/Vol] 0.04 10*3/uL Normal <0.11 [facility] Comment on above: Order Comment: Speci men Type: BLOOD SPECIMENOrdering Facility: [facility] Address: [address] [place] [address] Performed By: #### 5 7021-8 ####[facility] LABCLIA [id number] [place] [address] Basophils/100 WBC (Bld) 1.0 % Normal [facility] Comment on above: Order Comment: Speci men Type: BLOOD SPECIMENOrdering Facility: [facility] Address: [address] [place] [address] Performed By: #### 5 7021-8 ####[facility] LABCLIA [id number] [place] [address] Differential cell count method Nom (Bld) Auto Normal [facility] Comment on above: Order Comment: Speci men Type: BLOOD SPECIMENOrdering Facility: [facility] Address: [address] [place] [address] Performed By: #### 5 7021-8 ####[facility] LABCLIA [id number] [place] [address] Eosinophils (Bld) [#/Vol] 0.04 10*3/uL Normal <0.46 [facility] Comment on above: Order Comment: Speci men Type: BLOOD SPECIMENOrdering Facility: [facility] Address: [address] [place] [address] Performed By: #### 5 7021-8 ####[facility] LABCLIA [id number] [place] [address] Eosinophils/100 WBC (Bld) 1.0 % Normal [facility] Comment on above: Order Comment: Speci men Type: BLOOD SPECIMENOrdering Facility: [facility] Address: [address] [place] [address] Performed By: #### 5 7021-8 ####[facility] LABCLIA [id number] [place] [address] Erythrocyte distribution width (RBC) [Ratio] 19.9 % High 11.5-15.0 [facility] Comment on above: Order Comment: Speci men Type: BLOOD SPECIMENOrdering Facility: [facility] Address: [address] [place] [address] Performed By: #### 5 7021-8 ####[facility] LABCLIA [id number] [place] [address] Hematocrit (Bld) [Volume fraction] 30.6 % Low 39.0-51.0 [facility] Comment on above: Order Comment: Speci men Type: BLOOD SPECIMENOrdering Facility: [facility] Address: [address] [place] [address] Performed By: #### 5 7021-8 ####[facility] LABCLIA [id number] [place] [address] Hemoglobin (Bld) [Mass/Vol] 10.0 g/dL Low 13.0-17.0 [facility] Comment on above: Order Comment: Speci men Type: BLOOD SPECIMENOrdering Facility: [facility] Address: [address] [place] [address] Performed By: #### 5 7021-8 ####[facility] LABCLIA [id number] [place] [address] Immature granulocytes (Bld) [#/Vol] 0.05 10*3/uL Normal <0.10 [facility] Comment on above: Order Comment: Speci men Type: BLOOD SPECIMENOrdering Facility: [facility] Address: [address] [place] [address] Performed By: #### 5 7021-8 ####[facility] LABCLIA [id number] [place] [address] Immature granulocytes/100 WBC (Bld) 1.3 % Normal [facility] Comment on above: Order Comment: Speci men Type: BLOOD SPECIMENOrdering Facility: [facility] Address: [address] [place] [address] Performed By: #### 5 7021-8 ####[facility] LABCLIA [id number] [place] [address] Lymphocytes (Bld) [#/Vol] 0.36 10*3/uL Low 1.00-4.00 [facility] Comment on above: Order Comment: Speci men Type: BLOOD SPECIMENOrdering Facility: [facility] Address: [address] [place] [address] Performed By: #### 5 7021-8 ####[facility] LABCLIA [id number] [place] [address] Lymphocytes/100 WBC (Bld) 9.3 % Normal [facility] Comment on above: Order Comment: Speci men Type: BLOOD SPECIMENOrdering Facility: [facility] Address: [address] [place] [address] Performed By: #### 5 7021-8 ####[facility] LABCLIA [id number] [place] [address] MCH (RBC) [Entitic mass] 29.3 pg Normal 26.0-34.0 [facility] Comment on above: Order Comment: Speci men Type: BLOOD SPECIMENOrdering Facility: [facility] Address: [address] [place] [address] Performed By: #### 5 7021-8 ####[facility] LABCLIA [id number] [place] [address] MCHC (RBC) [Mass/Vol] 32.7 g/dL Normal 30.5-36.[address] [facility] Comment on above: Order Comment: Speci men Type: BLOOD SPECIMENOrdering Facility: [facility] Address: [address] [place] [address] Performed By: #### 5 7021-8 ####[facility] LABCLIA [id number] [place] [address] MCV (RBC) [Entitic vol] 89.7 fL Normal 80.0-100.0 [facility] Comment on above: Order Comment: Speci men Type: BLOOD SPECIMENOrdering Facility: [facility] Address: [address] [place] [address] Performed By: #### 5 7021-8 ####[facility] LABCLIA [id number] [place] [address] Monocytes (Bld) [#/Vol] 0.45 10*3/uL Normal <0.87 [facility] Comment on above: Order Comment: Speci men Type: BLOOD SPECIMENOrdering Facility: [facility] Address: [address] [place] [address] Performed By: #### 5 7021-8 ####[facility] LABCLIA [id number] [place] [address] Monocytes/100 WBC (Bld) 11.6 % Normal [facility] Comment on above: Order Comment: Speci men Type: BLOOD SPECIMENOrdering Facility: [facility] Address: [address] [place] [address] Performed By: #### 5 7021-8 ####[facility] LABCLIA [id number] [place] [address] Neutrophils (Bld) [#/Vol] 2.95 10*3/uL Normal 1.45-7.50 [facility] Comment on above: Order Comment: Speci men Type: BLOOD SPECIMENOrdering Facility: [facility] Address: [address] [place] [address] Performed By: #### 5 7021-8 ####[facility] LABCLIA [id number] [place] [address] Neutrophils/100 WBC (Bld) 75.8 % Normal [facility] Comment on above: Order Comment: Speci men Type: BLOOD SPECIMENOrdering Facility: [facility] Address: [address] [place] [address] Performed By: #### 5 7021-8 ####[facility] LABCLIA [id number] [place] [address] Nucleated RBC (Bld) [#/Vol] 0.05 10*3/uL High <0.01 [facility] Comment on above: Order Comment: Speci men Type: BLOOD SPECIMENOrdering Facility: [facility] Address: [address] [place] [address] Performed By: #### 5 7021-8 ####[facility] LABCLIA [id number] [place] [address] Nucleated RBC/100 WBC (Bld) [Ratio] 1.3 /100 WBC Normal [facility] Comment on above: Order Comment: Speci men Type: BLOOD SPECIMENOrdering Facility: [facility] Address: [address] [place] [address] Performed By: #### 5 7021-8 ####[facility] LABCLIA [id number] [place] [address] Platelet mean volume (Bld) [Entitic vol] 8.5 fL Low 9.0-12.7 [facility] Comment on above: Order Comment: Speci men Type: BLOOD SPECIMENOrdering Facility: [facility] Address: [address] [place] [address] Performed By: #### 5 7021-8 ####[facility] LABCLIA [id number] [place] [address] Platelets (Bld) [#/Vol] 194 10*3/uL Normal 150-400 [facility] Comment on above: Order Comment: Speci men Type: BLOOD SPECIMENOrdering Facility: [facility] Address: [address] [place] [address] Performed By: #### 5 7021-8 ####[facility] LABCLIA [id number] [place] [address] RBC (Bld) [#/Vol] 3.41 10*6/uL Low 4.20-6.00 [facility] Comment on above: Order Comment: Speci men Type: BLOOD SPECIMENOrdering Facility: [facility] Address: [address] [place] [address] Performed By: #### 5 7021-8 ####[facility] LABCLIA [id number] [place] [address] WBC (Bld) [#/Vol] 3.89 10*3/uL Normal 3.70-11.00 [facility] Comment on above: Order Comment: Speci men Type: BLOOD SPECIMENOrdering Facility: [facility] Address: [address] [place] [address] Performed By: #### 5 7021-8 ####[facility] LABCLIA [id number] [place] [address] CNPNon 04-26-2023 CNPN Normal [facility] CNPNon 04-25-2023 CNPN Normal [facility] CBC W Auto Differential pane l (Bld)on 04-21-2023 Basophils (Bld) [#/Vol] 0.03 10*3/uL Normal <0.11 [facility] Comment on above: Order Comment: Speci men Type: BLOOD SPECIMENOrdering Facility: [facility] Address: [address] [place] [address] Performed By: #### 5 7021-8 ####[facility] LABCLIA [id number] [place] [address] Basophils/100 WBC (Bld) 0.8 % Normal [facility] Comment on above: Order Comment: Speci men Type: BLOOD SPECIMENOrdering Facility: [facility] Address: [address] [place] [address] Performed By: #### 5 7021-8 ####[facility] LABCLIA [id number] [place] [address] Differential cell count method Nom (Bld) Auto Normal [facility] Comment on above: Order Comment: Speci men Type: BLOOD SPECIMENOrdering Facility: [facility] Address: [address] [place] [address] Performed By: #### 5 7021-8 ####[facility] LABCLIA [id number] [place] [address] Eosinophils (Bld) [#/Vol] 0.06 10*3/uL Normal <0.46 [facility] Comment on above: Order Comment: Speci men Type: BLOOD SPECIMENOrdering Facility: [facility] Address: [address] [place] [address] Performed By: #### 5 7021-8 ####[facility] LABCLIA [id number] [place] [address] Eosinophils/100 WBC (Bld) 1.7 % Normal [facility] Comment on above: Order Comment: Speci men Type: BLOOD SPECIMENOrdering Facility: [facility] Address: [address] [place] [address] Performed By: #### 5 7021-8 ####[facility] LABCLIA [id number] [place] [address] Erythrocyte distribution width (RBC) [Ratio] 18.9 % High 11.5-15.0 [facility] Comment on above: Order Comment: Speci men Type: BLOOD SPECIMENOrdering Facility: [facility] Address: [address] [place] [address] Performed By: #### 5 7021-8 ####[facility] LABCLIA [id number] [place] [address] Hematocrit (Bld) [Volume fraction] 27.9 % Low 39.0-51.0 [facility] Comment on above: Order Comment: Speci men Type: BLOOD SPECIMENOrdering Facility: [facility] Address: [address] [place] [address] Performed By: #### 5 7021-8 ####[facility] LABCLIA [id number] [place] [address] Hemoglobin (Bld) [Mass/Vol] 8.6 g/dL Low 13.0-17.0 [facility] Comment on above: Order Comment: Speci men Type: BLOOD SPECIMENOrdering Facility: [facility] Address: [address] [place] [address] Performed By: #### 5 7021-8 ####[facility] LABCLIA [id number] [place] [address] Immature granulocytes (Bld) [#/Vol] 0.05 10*3/uL Normal <0.10 [facility] Comment on above: Order Comment: Speci men Type: BLOOD SPECIMENOrdering Facility: [facility] Address: [address] [place] [address] Performed By: #### 5 7021-8 ####[facility] LABCLIA [id number] [place] [address] Immature granulocytes/100 WBC (Bld) 1.4 % Normal [facility] Comment on above: Order Comment: Speci men Type: BLOOD SPECIMENOrdering Facility: [facility] Address: [address] [place] [address] Performed By: #### 5 7021-8 ####[facility] LABCLIA [id number] [place] [address] Lymphocytes (Bld) [#/Vol] 0.41 10*3/uL Low 1.00-4.00 [facility] Comment on above: Order Comment: Speci men Type: BLOOD SPECIMENOrdering Facility: [facility] Address: [address] [place] [address] Performed By: #### 5 7021-8 ####[facility] LABIA [id number] [place] [address] Lymphocytes/100 WBC (Bld) 11.5 % Normal [facility] Comment on above: Order Comment: Speci men Type: BLOOD SPECIMENOrdering Facility: [facility] Address: [address] [place] [address] Performed By: #### 5 7021-8 ####[facility] LABCLIA [id number] [place] [address] MCH (RBC) [Entitic mass] 29.4 pg Normal 26.0-34.0 [facility] Comment on above: Order Comment: Speci men Type: BLOOD SPECIMENOrdering Facility: [facility] Address: [address] [place] [address] Performed By: #### 5 7021-8 ####[facility] LABIA [id number] [place] [address] MCHC (RBC) [Mass/Vol] 30.8 g/dL Normal 30.5-36.[address] [facility] Comment on above: Order Comment: Speci men Type: BLOOD SPECIMENOrdering Facility: [facility] Address: [address] [place] [address] Performed By: #### 5 7021-8 ####[facility] LABCLIA [id number] [place] [address] MCV (RBC) [Entitic vol] 95.2 fL Normal 80.0-100.0 [facility] Comment on above: Order Comment: Speci men Type: BLOOD SPECIMENOrdering Facility: [facility] Address: [address] [place] [address] Performed By: #### 5 7021-8 ####[facility] LABCLIA [id number] [place] [address] Monocytes (Bld) [#/Vol] 0.40 10*3/uL Normal <0.87 [facility] Comment on above: Order Comment: Speci men Type: BLOOD SPECIMENOrdering Facility: [facility] Address: [address] [place] [address] Performed By: #### 5 7021-8 ####[facility] LABCLIA [id number] [place] [address] Monocytes/100 WBC (Bld) 11.2 % Normal [facility] Comment on above: Order Comment: Speci men Type: BLOOD SPECIMENOrdering Facility: [facility] Address: [address] [place] [address] Performed By: #### 5 7021-8 ####[facility] LABCLIA [id number] [place] [address] Neutrophils (Bld) [#/Vol] 2.62 10*3/uL Normal 1.45-7.50 [facility] Comment on above: Order Comment: Speci men Type: BLOOD SPECIMENOrdering Facility: [facility] Address: [address] [place] [address] Performed By: #### 5 7021-8 ####[facility] LABCLIA [id number] [place] [address] Neutrophils/100 WBC (Bld) 73.4 % Normal [facility] Comment on above: Order Comment: Speci men Type: BLOOD SPECIMENOrdering Facility: [facility] Address: [address] [place] [address] Performed By: #### 5 7021-8 ####[facility] LABCLIA [id number] [place] [address] Nucleated RBC (Bld) [#/Vol] 0.03 10*3/uL High <0.01 [facility] Comment on above: Order Comment: Speci men Type: BLOOD SPECIMENOrdering Facility: [facility] Address: [address] [place] [address] Performed By: #### 5 7021-8 ####[facility] LABCLIA [id number] [place] [address] Nucleated RBC/100 WBC (Bld) [Ratio] 0.8 /100 WBC Normal [facility] Comment on above: Order Comment: Speci men Type: BLOOD SPECIMENOrdering Facility: [facility] Address: [address] [place] [address] Performed By: #### 5 7021-8 ####[facility] LABCLIA [id number] [place] [address] Platelet mean volume (Bld) [Entitic vol] 9.4 fL Normal 9.0-12.7 [facility] Comment on above: Order Comment: Speci men Type: BLOOD SPECIMENOrdering Facility: [facility] Address: [address] [place] [address] Performed By: #### 5 7021-8 ####[facility] LABCLIA [id number] [place] [address] Platelets (Bld) [#/Vol] 165 10*3/uL Normal 150-400 [facility] Comment on above: Order Comment: Speci men Type: BLOOD SPECIMENOrdering Facility: [facility] Address: [address] [place] [address] Performed By: #### 5 7021-8 ####[facility] LABCLIA [id number] [place] [address] RBC (Bld) [#/Vol] 2.93 10*6/uL Low 4.20-6.00 [facility] Comment on above: Order Comment: Speci men Type: BLOOD SPECIMENOrdering Facility: [facility] Address: [address] [place] [address] Performed By: #### 5 7021-8 ####[facility] LABIA [id number] [place] [address] WBC (Bld) [#/Vol] 3.57 10*3/uL Low 3.70-11.00 [facility] Comment on above: Order Comment: Speci men Type: BLOOD SPECIMENOrdering Facility: [facility] Address: [address] [place] [address] Performed By: #### 5 7021-8 ####[facility] [id number] [place] [address] CNOVSPon 04-21-2023 CNOVSP Normal [facility] CNPNon 04-21-2023 CNPN Normal [facility] Comprehensive metabolic 2000 panelon 04-21-2023 Albumin [Mass/Vol] 3.9 g/dL Normal 3.9-4.[address] [facility] Comment on above: Order Comment: Speci men Type: BLOOD SPECIMENOrdering Facility: [facility] Address: [address] [place] [address] Performed By: #### 2 4323-8 ####[facility] LABCLIA [id number] [place] [address] ALP [Catalytic activity/Vol] 825 U/L High 38-113 [facility] Comment on above: Order Comment: Speci men Type: BLOOD SPECIMENOrdering Facility: [facility] Address: [address] [place] [address] Performed By: #### 2 4323-8 ####[facility] LABCLIA [id number] [place] [address] ALT [Catalytic activity/Vol] 33 U/L Normal 10-54 [facility] Comment on above: Order Comment: Speci men Type: BLOOD SPECIMENOrdering Facility: [facility] Address: [address] [place] [address] Performed By: #### 2 4323-8 ####[facility] LABCLIA [id number] [place] [address] Anion gap [Moles/Vol] 9 mmol/L Normal 9-[address] [facility] Comment on above: Order Comment: Speci men Type: BLOOD SPECIMENOrdering Facility: [facility] Address: [address] [place] [address] Performed By: #### 2 4323-8 ####[facility] LABCLIA [id number] [place] [address] AST [Catalytic activity/Vol] 60 U/L High 14-40 [facility] Comment on above: Order Comment: Speci men Type: BLOOD SPECIMENOrdering Facility: [facility] Address: [address] [place] [address] Performed By: #### 2 4323-8 ####[facility] LABCLIA [id number] [place] [address] Bilirubin [Mass/Vol] 0.3 mg/dL Normal 0.2-1.3 [facility] Comment on above: Order Comment: Speci men Type: BLOOD SPECIMENOrdering Facility: [facility] Address: [address] [place] [address] Performed By: #### 2 4323-8 ####[facility] LABCLIA [id number] [place] [address] Calcium [Mass/Vol] 8.7 mg/dL Normal 8.5-10.[address] [facility] Comment on above: Order Comment: Speci men Type: BLOOD SPECIMENOrdering Facility: [facility] Address: [address] [place] [address] Performed By: #### 2 4323-8 ####[facility] LABCLIA [id number] [place] [address] Chloride [Moles/Vol] 103 mmol/L Normal 97-105 [facility] Comment on above: Order Comment: Speci men Type: BLOOD SPECIMENOrdering Facility: [facility] Address: [address] [place] [address] Performed By: #### 2 4323-8 ####[facility] LABCLIA [id number] [place] [address] CO2 [Moles/Vol] 25 mmol/L Normal 22-30 [facility] Comment on above: Order Comment: Speci men Type: BLOOD SPECIMENOrdering Facility: [facility] Address: [address] [place] [address] Performed By: #### 2 4323-8 ####[facility] LABCLIA [id number] [place] [address] Creatinine [Mass/Vol] 0.97 mg/dL Normal 0.73-1.[address] [facility] Comment on above: Order Comment: Speci men Type: BLOOD SPECIMENOrdering Facility: [facility] Address: [address] [place] [address] Performed By: #### 2 4323-8 ####[facility] LABCLIA [id number] [place] [address] Creatinine and Glomerular filtration rate.predicted panel (S/P/Bld) 77 mL/min/1.73m??? Normal >=60 [facility] Comment on above: Order Comment: Speci men Type: BLOOD SPECIMENOrdering Facility: [facility] Address: [address] [place] [address] Result Comment: Christelle mated Glomerular Filtration Rate (eGFR) is calculated using the 2020 CKD-EPI creatinine equation. This equation utilizes serum creatinine, sex, and age as parameters. The creatinine assay has traceable calibration to isotope dilution-mass spectrometry. Refer to KDIGO guidelines for clinical interpretation. In patients with unstable renal function, e.g. those with acute kidney injury, the eGFR may not accurately reflect actual GFR. Performed By: #### 2 4323-8 ####[facility] LABCLIA [id number] [place] [address] Glucose [Mass/Vol] 147 mg/dL High 74-[address] [facility] Comment on above: Order Comment: Speci men Type: BLOOD SPECIMENOrdering Facility: [facility] Address: [address] [place] [address] Result Comment: The [place] Diabetes Association (ADA) provides guidance for cutoff values for fasting glucose and random glucose. The ADA defines fasting as no caloric intake for at least 8 hours. Fasting plasma glucose results between 100 to 125 mg/dL indicate increased risk for diabetes (prediabetes).Fasting plasma glucose results greater than or equal to 126 mg/dL meet the criteria for diagnosis of diabetes. In the absence of unequivocal hyperglycemia, results should be confirmed by repeat testing. In a patient with classic symptoms of hyperglycemia or hyperglycemic crisis, random plasma glucose results greater than or equal to 200 mg/dL meet the criteria for diagnosis of diabetes.Reference: Standards of Medical Care in Diabetes 2016, [place] Diabetes Association. Diabetes Care. 2016.39(Suppl 1). Performed By: #### 2 4323-8 ####[facility] LABCLIA [id number] [place] [address] Potassium [Moles/Vol] 4.4 mmol/L Normal 3.7-5.[address] [facility] Comment on above: Order Comment: Speci men Type: BLOOD SPECIMENOrdering Facility: [facility] Address: [address] [place] [address] Performed By: #### 2 4323-8 ####[facility] LABCLIA [id number] [place] [address] Protein [Mass/Vol] 6.1 g/dL Low 6.3-8.[address] [facility] Comment on above: Order Comment: Speci men Type: BLOOD SPECIMENOrdering Facility: [facility] Address: [address] [place] [address] Performed By: #### 2 4323-8 ####[facility] LABCLIA [id number] [place] [address] Sodium [Moles/Vol] 137 mmol/L Normal 136-[address] [facility] Comment on above: Order Comment: Speci men Type: BLOOD SPECIMENOrdering Facility: [facility] Address: [address] [place], [place] [address] Performed By: #### 2 4323-8 ####[facility] LABCLIA [id number] [place] [address] Urea nitrogen [Mass/Vol] 18 mg/dL Normal 9-24 [facility] Comment on above: Order Comment: Speci men Type: BLOOD SPECIMENOrdering Facility: [facility] Address: [address] [place] [address] Performed By: #### 2 4323-8 ####[facility] LABCLIA [id number] [place] [address] Consultation Noteon 04-21-20 23 Consultation Note [id number]#[id number] Normal [facility] Prostate specific Ag [Mass/Vol] 1017.00 ng/mL High <2.60 [facility] Comment on above: Order Comment: Speci men Type: BLOOD SPECIMENOrdering Facility: [facility] Address: [address] [place] [address] Result Comment: Tota irene PSA test methodology used is the Electrochemiluminescence Immunoassay by [employer]. Total PSA values by differing methodologies cannot be interchanged.For an individual patient, the significance of a PSA level should be interpreted in a broad clinical context, including age, race, family history, digital rectal exam, prostate size, results of prior testing (prostate biopsy, free PSA, PCA3), and use of 5-alpha reductase inhibitors. Considering the high incidence of asymptomatic cancer in the general population that may not pose an ultimate risk to a patient, the decision to recommend urological evaluation or prostate biopsy should be individualized after consideration of all these factors.REFERENCE:Ayla Arriaga M.D., M.P.H., Tl Betancourt M.D., Ph.D., Buster Church M.D., Lyubov Christiansen M.P.H., Lawanda Ross Sc.D. Effect of Verification Bias on Screening for Prostate Cancer by Measurement of Prostatic Specific Antigen. N Engl J Med 2003,349:335-42. Performed By: #### 2 857-1 ####[facility] LABCLIA [id number] [place] [id number] [facility] Ambulatory Visit Summaryon 1 06-19-2022 Ambulatory Visit Summary KARIN MART :1940 Visit Date:04/19/2023 Ambulatory Visit Instructions Your Diagnosis BMI 23.0-23.9, adult Nonsmoker Prostate cancer metastatic to bone, Prostate cancer Secondary malignant neoplasm of bone Trouble walking Your Care Team Attending Physician - Chayito Duarte MD Primary Care Physician - Chayito Duarte MD This Is Your Medications List Misc Prescription Misc Prescription (Lift chair) abiraterone (abiraterone 250 mg oral tablet) calcium-vitamin D (Calcium 600 D Tab) denosumab naproxen (Aleve) tamsulosin (tamsulosin 0.4 mg Cap) Procedures Performed Transrectal needle biopsy of prostate (12/02/2021), Transrectal biopsy of prostate using ultrasound (US) guidance (08/22/2018), Transrectal biopsy of prostate using ultrasound (US) guidance (04/09/2009), Transrectal biopsy of prostate using ultrasound (US) guidance (02/18/2009), Angioplasty, Cataract extraction and insertion of intraocular lens, Colonoscopy, Tonsillectomy, Vasectomy. Discharge Vitals Temperature (Temporal Artery) 37.4 ?C Heart Rate (Peripheral) 84 Respiratory Rate 18 Blood Pressure 116/60 Height 173 cm Height 68 in Weight 69.6 kg Weight 153.12 lb BMI 23.26 What to do next Scheduled Follow-Up Appointments Tuesday 10:15 AM EST With: RENZO MCGARRY, Isa Son Where: [facility] Invalid Interpretation Code [address] [place] [address]- \.br\ Tuesday 9:30 AM EDT \.br\ With:\.br\ Where: [facility] CNPNon 04-19-2023 CNPN Normal [facility] Office/Clini c Noteon 04-19-2023 Family Medicine Office/Clinic Note HPI Staff Krain is an 82 year old male presenting for a lift chair Has bone cancer and it's quite painful to get up out a chair to stand Needs a rx for a lift chair will get a the med shop[facility], just needs printed out and won't have to pay sales tax on it. Will be starting new treatment, Apr 27, radiation treatment for his cancer Oncologist order a narcotic for him for pain will be picking up today, currently taking 3 aleve a day and it's not helping flu: UTD questions/concerns: just the increased pain, shortness of breath and lack of energy are his issues and concerns History of Present Illness - Pt is struggling 2/2 pain - Pt called Oncology to see if they can help. - Pain meds called in - For more information please see admission H and P. Review of Systems PHQ Score Initial Depression Screen Score: 0 SCORE Physical Exam Vitals & Measurements T: 37.4 ?C(Temporal Artery) HR: 84(Peripheral) RR: 18 BP: 116/60 SpO2: 100% HT: 68 in HT: 173 cm WT: 69.6 kg WT: 153.12 lb BMI: 23.26 General: alert, no acute distress ENMT: oral mucosa moist, Cardiovascular: normal peripheral perfusion Respiratory: respirations non labored Extremities: no deformity, no trauma Neurological: oriented x 4, LOC appropriate for age, CN II-XII intact, motor strength equal & normal bilaterally, speech normal Pt wants to stand as sitting causes him to much pain Assessment/Plan 1. Trouble walking (R26.2: Difficulty in walking, not elsewhere classified) - Trouble is because of the pain. - Encouraged Palliative care - Pt is interested - Will place order if Oncologist does not Ordered: Misc Prescription, Lift chair, See Instructions, 1 EA, 0, Pt needs a lift chair to help with ambulation., Supply, 173, cm, 04/19/23 13:33:00 EST, Height/Length Dosing, 69.6, kg, 04/19/23 13:33:00 EST, Weight Dosing 2. 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 - If no improvement, will look into other options. - Pain meds are from the Oncologist. 3. Prostate cancer metastatic to bone (C61: Malignant neoplasm of prostate) - As above Ordered: Body Mass Index (BMI) documented 3008F Current tobacco non-user 1036F Depression Screening Negative 3352F Influenza immunization administered or previously received 4274F Most recent diastolic blood pressure <80 mm Hg 3078F Patient screen for fall risk: no falls in last year or 1 fall with no injury in last year 1101F Systolic BP <130 mm Hg (Most Recent) 3074F 4. BMI 23.0-23.9, adult (Z68.23: Body mass index [BMI] 23.0-23.9, adult) - BMI education given Ordered: Body Mass Index (BMI) documented 3008F Current tobacco non-user 1036F Depression Screening Negative 3352F Influenza immunization administered or previously received 4274F Most recent diastolic blood pressure <80 mm Hg 3078F Patient screen for fall risk: no falls in last year or 1 fall with no injury in last year 1101F Systolic BP <130 mm Hg (Most Recent) 3074F 5. Nonsmoker (Z78.9: Other specified health status) - Please continue to not smoke Ordered: Body Mass Index (BMI) documented 3008F Current tobacco non-user 1036F Depression Screening Negative 3352F Influenza immunization administered or previously received 4274F Most recent diastolic blood pressure <80 mm Hg 3078F Patient screen for fall risk: no falls in last year or 1 fall with no injury in last year 1101F Systolic BP <130 mm Hg (Most Recent) 3074F Follow-up No qualifying data available Patient Education BMI for Adults Problem List/Past Medical History Ongoing Abscess BPH (benign prostatic hyperplasia) Cancer related pain Elevated PSA Ex-smoker Gross hematuria Mixed hyperlipidemia Nocturia Prostate cancer Prostate cancer metastatic to bone Skin infection Urgency of urination Historical No qualifying data Procedure/Surgical History Transrectal needle biopsy of prostate (12/02/2021), Transrectal biopsy of prostate using ultrasound (US) guidance (08/22/2018), Transrectal biopsy of prostate using ultrasound (US) guidance (04/09/2009), Transrectal biopsy of prostate using ultrasound (US) guidance (02/18/2009), Angioplasty, Cataract extraction and insertion of intraocular lens, Colonoscopy, Tonsillectomy, Vasectomy. Medications abiraterone 250 mg oral tablet, 1000 mg= 4 tab(s), Oral, Daily, Not taking Aleve, 200 mg, Oral, q12hr Calcium 600 D Tab, Oral, BID denosumab, See Instructions Lift chair, See Instructions [facility] Prescription, 0 tamsulosin 0.4 mg Cap, 0.4 mg= 1 cap(s), Oral, BID, 3 refills Allergies No Known Medication Allergies Social History Alcohol Current, Beer, 1-2 times per month, 1.00 drinks/episode maximum. Household alcohol concerns: No., 01/05/2023 Tobacco Former smoker, quit more than 30 days ago Tobacco Use:. Never Smokeless Tobacco Use:. Household tobacco concerns: No., 04/19/2023 Family History Family his (more content not included)... Normal [facility] Comment on above: Result Comment: Elec tronically Signed By: Felicia MCGARRY, Chayito Milner\.br\Date and Time Signed: 04/19/23 14:30 EST Patient Educationon 04-19-20 Patient Education Nutrition BMI for Adults What is BMI? Body mass index (BMI) is a number that is calculated from a person's weight and height. BMI can help estimate how much of a person's weight is composed of fat. BMI does not measure body fat directly. Rather, it is an alternative to procedures that directly measure body fat, which can be difficult and expensive. BMI can help identify people who may be at higher risk for certain medical problems. What are BMI measurements used for? BMI is used as a screening tool to identify possible weight problems. It helps determine whether a person is obese, overweight, a healthy weight, or underweight. BMI is useful for: ? Identifying a weight problem that may be related to a medical condition or may increase the risk for medical problems. ? Promoting changes, such as changes in diet and exercise, to help reach a healthy weight. BMI screening can be repeated to see if these changes are working. How is BMI calculated? BMI involves measuring your weight in relation to your height. Both height and weight are measured, and the BMI is calculated from those numbers. This can be done either in [place] ([place] or metric measurements. Note that charts and online BMI calculators are available to help you find your BMI quickly and easily without having to do these calculations yourself. To calculate your BMI in [place] measurements: 1. Measure your weight in pounds (lb). 2. Multiply the number of pounds by 703. ? For example, for a person who weighs 180 lb, multiply that number by 703, which equals 126,540. 3. Measure your height in inches. Then multiply that number by itself to get a measurement called inches squared. ? For example, for a person who is 70 inches tall, the inches squared measurement is 70 inches x 70 inches, which equals 4,900 inches squared. 4. Divide the total from step 2 (number of lb x 703) by the total from step 3 (inches squared): 126,540 ? 4,900 = 25.8. This is your BMI. To calculate your BMI in metric measurements: 1. Measure your weight in kilograms (kg). 2. Measure your height in meters (m). Then multiply that number by itself to get a measurement called meters squared. ? For example, for a person who is 1.75 m tall, the meters squared measurement is 1.75 m x 1.75 m, which is equal to 3.1 meters squared. 3. Divide the number of kilograms (your weight) by the meters squared number. In this example: 70 ? 3.1 = 22.6. This is your BMI. What do the results mean? BMI charts are used to identify whether you are underweight, normal weight, overweight, or obese. The following guidelines will be used: ? Underweight: BMI less than 18.5. ? Normal weight: BMI between 18.5 and 24.9. ? Overweight: BMI between 25 and 29.9. ? Obese: BMI of 30 or above. Keep these notes in mind: ? Weight includes both fat and muscle, so someone with a muscular build, such as an athlete, may have a BMI that is higher than 24.9. In cases like these, BMI is not an accurate measure of body fat. ? To determine if excess body fat is the cause of a BMI of 25 or higher, further assessments may need to be done by a health care provider. ? BMI is usually interpreted in the same way for men and women. Where to find more information For more information about BMI, including tools to quickly calculate your BMI, go to these websites: ? Centers for Disease Control and Prevention: www.cdc.gov ? [place] Heart Association: www.heart.org ? National Heart, Lung, and Blood [place]: www.nhlbi.nih.gov Summary ? Body mass index (BMI) is a number that is calculated from a person's weight and height. ? BMI may help estimate how much of a person's weight is composed of fat. BMI can help identify those who may be at higher risk for certain medical problems. ? BMI can be measured using [place] measurements or metric measurements. ? BMI charts are used to identify whether you are underweight, normal weight, overweight, or obese. This information is not intended to replace advice given to you by your health care provider. Make sure you discuss any questions you have with your health care provider. Document Revised: 01/30/2020 Document Reviewed: 12/07/2019 [employer] Patient Education ? 2022 [employer] Normal [facility] CNPNon 04-15-2023 CNPN Normal [facility] CBC W Auto Differential pane l (Bld)on 04-13-2023 Anisocytosis Ql (Bld) Present Normal [facility] Comment on above: Order Comment: Speci men Type: BLOOD SPECIMENOrdering Facility: [facility] Address: [address] [place] [address] Performed By: #### 5 7021-8 ####[facility] LABCLIA [id number] [place], [place] [address]MWY[facility]JCDJ[facility] LABCLIA [id number] [facility] [id number] [address] [place] Basophils (Bld) [#/Vol] 0.11 10*3/uL High <0.11 [facility] Comment on above: Order Comment: Speci men Type: BLOOD SPECIMENOrdering Facility: [facility] Address: [address] [place] [address] Performed By: #### 5 7021-8 ####[facility] LABCLIA [id number] [address] LABCLIA [id number] [place] [address] [place] Basophils/100 WBC (Bld) 3.0 % Normal [facility] Comment on above: Order Comment: Speci men Type: BLOOD SPECIMENOrdering Facility: [facility] Address: [address] [place] [address] Performed By: #### 5 7021-8 ####[facility] LABCLIA [id number] [address] LABCLIA [id number] [place] [address] [place] Dacrocytes LM Ql (Bld) Few Normal [facility] Comment on above: Order Comment: Speci men Type: BLOOD SPECIMENOrdering Facility: [facility] Address: [address] [place] [address] Performed By: #### 5 7021-8 ####[facility] LABCLIA [id number] [address] LABCLIA [id number] [place] [address] [place] Differential cell count method Nom (Bld) Manual Normal [facility] Comment on above: Order Comment: Speci men Type: BLOOD SPECIMENOrdering Facility: [facility] Address: [address] [place] [address] Performed By: #### 5 7021-8 ####[facility] LABCLIA [id number] [address] LABCLIA [id number] [place] [address] [place] Eosinophils (Bld) [#/Vol] 0.11 10*3/uL Normal <0.46 [facility] Comment on above: Order Comment: Speci men Type: BLOOD SPECIMENOrdering Facility: [facility] Address: [address] [place] [address] Performed By: #### 5 7021-8 ####[facility] LABCLIA [id number] [place] [id number] LABCLIA [id number] [place] [address] [place] Eosinophils/100 WBC (Bld) 3.0 % Normal [facility] Comment on above: Order Comment: Speci men Type: BLOOD SPECIMENOrdering Facility: [facility] Address: [address] [place] [address] Performed By: #### 5 7021-8 ####[place] [facility] LABCLIA [id number] [address] LABCLIA [id number] [place] [address] [place] Erythrocyte distribution width (RBC) [Ratio] 19.9 % High 11.5-15.0 [facility] Comment on above: Order Comment: Speci men Type: BLOOD SPECIMENOrdering Facility: [facility] Address: [address] [place] [address] Performed By: #### 5 7021-8 ####[facility]INE[facility] LABCLIA [id number] [place] [id number] LABCLIA [id number] [place] [address] [place] Hematocrit (Bld) [Volume fraction] 28.7 % Low 39.0-51.0 [facility] Comment on above: Order Comment: Speci men Type: BLOOD SPECIMENOrdering Facility: [facility] Address: [address] [place] [address] Performed By: #### 5 7021-8 ####[facility] LABCLIA [id number] [address] LABCLIA [id number] [place] [address] [place] Hemoglobin (Bld) [Mass/Vol] 9.1 g/dL Low 13.0-17.0 [facility] Comment on above: Order Comment: Speci men Type: BLOOD SPECIMENOrdering Facility: [facility] Address: [address] [place] [address] Performed By: #### 5 7021-8 ####[facility] LABCLIA [id number] [address] LABCLIA [id number] [place] [address] [place] Lymphocytes (Bld) [#/Vol] 0.43 10*3/uL Low 1.00-4.00 [facility] Comment on above: Order Comment: Speci men Type: BLOOD SPECIMENOrdering Facility: [facility] Address: [address] [place] [address] Performed By: #### 5 7021-8 ####[facility] LABCLIA [id number] [address] LABCLIA [id number] [place] [address] [place] Lymphocytes/100 WBC (Bld) 12.0 % Normal [facility] Comment on above: Order Comment: Speci men Type: BLOOD SPECIMENOrdering Facility: [facility] Address: [address] [place] [address] Performed By: #### 5 7021-8 ####[facility] LABCLIA [id number] [address] LABCLIA [id number] [place] [address] [place] MCH (RBC) [Entitic mass] 29.8 pg Normal 26.0-34.0 [facility] Comment on above: Order Comment: Speci men Type: BLOOD SPECIMENOrdering Facility: [facility] Address: [address] [place], [place] [address] Performed By: #### 5 7021-8 ####[facility] LABCLIA [id number] [place] [id number] LABCLIA [id number] [place] [address] [place] MCHC (RBC) [Mass/Vol] 31.7 g/dL Normal 30.5-36.[address] [facility] Comment on above: Order Comment: Speci men Type: BLOOD SPECIMENOrdering Facility: [facility] Address: [address] [place] [address] Performed By: #### 5 7021-8 ####[facility] LABCLIA [id number] [address] LABCLIA [id number] [place] [address] [place] MCV (RBC) [Entitic vol] 94.1 fL Normal 80.0-100.0 [facility] Comment on above: Order Comment: Speci men Type: BLOOD SPECIMENOrdering Facility: [facility] Address: [address] [facility] [place] [address] Performed By: #### 5 7021-8 ####[facility] LABCLIA [id number] [address] LABCLIA [id number] [place] [address] [place] Metamyelocytes/100 WBC (Bld) 1.0 % Normal [facility] Comment on above: Order Comment: Speci men Type: BLOOD SPECIMENOrdering Facility: [facility] Address: [address] [facility] [place] [address] Performed By: #### 5 7021-8 ####[facility] LABCLIA [id number] [address] LABCLIA [id number] [place] [address] [place] Monocytes (Bld) [#/Vol] 0.25 10*3/uL Normal <0.87 [facility] Comment on above: Order Comment: Speci men Type: BLOOD SPECIMENOrdering Facility: [facility] Address: [address] [place] [address] Performed By: #### 5 7021-8 ####[facility] LABCLIA [id number] [address] LABCLIA [id number] [place] [address] [place] Monocytes/100 WBC (Bld) 7.0 % Normal [facility] Comment on above: Order Comment: Speci men Type: BLOOD SPECIMENOrdering Facility: [facility] Address: [address] [place] [address] Performed By: #### 5 7021-8 ####[facility] LABCLIA [id number] [address] LABCLIA [id number] [place] [address] [place] MYELO% 1.0 % Normal [facility] Comment on above: Order Comment: Speci men Type: BLOOD SPECIMENOrdering Facility: [facility] Address: [address] [place] [address] Performed By: #### 5 7021-8 ####[facility] LABCLIA [id number] [address] LABCLIA [id number] [place] [address] [place] Neutrophils (Bld) [#/Vol] 2.61 10*3/uL Normal 1.45-7.50 [facility] Comment on above: Order Comment: Speci men Type: BLOOD SPECIMENOrdering Facility: [facility] Address: [address] [place] [address] Performed By: #### 5 7021-8 ####[facility] LABCLIA [id number] [place] [id number] LABCLIA [id number] [place] [address] [place] Neutrophils/100 WBC (Bld) 73.0 % Normal [facility] Comment on above: Order Comment: Speci men Type: BLOOD SPECIMENOrdering Facility: [facility] Address: [address] [place] [address] Performed By: #### 5 7021-8 ####[facility] LABCLIA [id number] [address] LABCLIA [id number] [place] [address] [place] Nucleated RBC (Bld) [#/Vol] 0.04 10*3/uL High <0.01 [facility] Comment on above: Order Comment: Speci men Type: BLOOD SPECIMENOrdering Facility: [facility] Address: [address] [place] [address] Performed By: #### 5 7021-8 ####[facility] LABCLIA [id number] [address] LABCLIA [id number] [place] [address] [place] Nucleated RBC/100 WBC (Bld) [Ratio] 1.0 /100 WBC Normal [facility] Comment on above: Order Comment: Speci men Type: BLOOD SPECIMENOrdering Facility: [facility] Address: [address] [place] [address] Performed By: #### 5 7021-8 ####[facility] LABCLIA [id number] [address] LABCLIA [id number] [place] [address] [place] Ovalocytes LM Ql (Bld) Few Normal [facility] Comment on above: Order Comment: Speci men Type: BLOOD SPECIMENOrdering Facility: [facility] Address: [address] [place] [address] Performed By: #### 5 7021-8 ####[facility] LABCLIA [id number] [place] [address] LABCLIA [id number] [place] [address] [place] Platelet mean volume (Bld) [Entitic vol] 9.8 fL Normal 9.0-12.7 [facility] Comment on above: Order Comment: Speci men Type: BLOOD SPECIMENOrdering Facility: [facility] Address: [address] [place] [address] Performed By: #### 5 7021-8 ####[facility] LABCLIA [id number] [address] LABCLIA [id number] [place] [address] [place] Platelets (Bld) [#/Vol] 137 10*3/uL Low 150-400 [facility] Comment on above: Order Comment: Speci men Type: BLOOD SPECIMENOrdering Facility: [facility] Address: [address] [place] [address] Performed By: #### 5 7021-8 ####[facility] LABCLIA [id number] [place] [id number] LABCLIA [id number] [place] [address] [place] Platelets Estimate (Bld) [#/Vol] Decreased Normal [facility] Comment on above: Order Comment: Speci men Type: BLOOD SPECIMENOrdering Facility: [facility] Address: [address] [place] [address] Performed By: #### 5 7021-8 ####[facility] LABCLIA [id number] [place] [address] LABCLIA [id number] [place] [address] [place] Polychromasia LM Ql (Bld) Slight Normal [facility] Comment on above: Order Comment: Speci men Type: BLOOD SPECIMENOrdering Facility: [facility] Address: [address] [place] [address] Performed By: #### 5 7021-8 ####[facility] LABCLIA [id number] [address] LABCLIA [id number] [place] [address] [place] RBC (Bld) [#/Vol] 3.05 10*6/uL Low 4.20-6.00 [facility] Comment on above: Order Comment: Speci men Type: BLOOD SPECIMENOrdering Facility: [facility] Address: [address] [place] [address] Performed By: #### 5 7021-8 ####[facility] LABCLIA [id number] [address] LABCLIA [id number] [place] [address] [place] RBC FRAGMENTS Few Abnormal None Seen [facility] Comment on above: Order Comment: Speci men Type: BLOOD SPECIMENOrdering Facility: [facility] Address: [address] [place] [address] Performed By: #### 5 7021-8 ####[facility] LABCLIA [id number] [place] [address] LABCLIA [id number] [place] [address] [place] RED CELL MORPH Reviewed: see result s of individual morphologies Normal [facility] Comment on above: Order Comment: Speci men Type: BLOOD SPECIMENOrdering Facility: [facility] Address: [address] [place] [address] Performed By: #### 5 7021-8 ####[facility]FRANK[facility] LABCLIA [id number] [place] [address] LABCLIA [id number] [place] [address] [place] WBC (Bld) [#/Vol] 3.58 10*3/uL Low 3.70-11.00 [facility] Comment on above: Order Comment: Speci men Type: BLOOD SPECIMENOrdering Facility: [facility] Address: [address] [place] [address] Performed By: #### 5 7021-8 ####[facility] LABCLIA [id number] [address] LABCLIA [id number] [place] [address] [place] WBC Left Shift Ql (Bld) Present Normal [facility] Comment on above: Order Comment: Speci men Type: BLOOD SPECIMENOrdering Facility: [facility] Address: [address] [place] [address] Performed By: #### 5 7021-8 ####[facility] LABCLIA [id number] [address] LABCLIA [id number] [place] [address] [place] CNPNon 04-11-2023 CNPN Normal [facility] Consultation Noteon 04-11-20 23 Consultation Note [id number]#[id number] Normal [facility] CNTRTMon 04-08-2023 CNTRTM Normal [facility] CBC W Auto Differential pane l (Bld)on 04-07-2023 Anisocytosis Ql (Bld) Present Normal [facility] Comment on above: Order Comment: Speci men Type: BLOOD SPECIMENOrdering Facility: [facility] Address: [address] [place] [address] Performed By: #### 5 7021-8 ####[facility] LABCLIA [id number] [place] [address] LABCLIA [id number] [place] [address] [place] Basophils (Bld) [#/Vol] 0.11 10*3/uL High <0.11 [facility] Comment on above: Order Comment: Speci men Type: BLOOD SPECIMENOrdering Facility: [facility] Address: [address] [place] [address] Performed By: #### 5 7021-8 ####[facility] LABCLIA [id number] [address] LABCLIA [id number] [place] [address] [place] Basophils/100 WBC (Bld) 3.0 % Normal [facility] Comment on above: Order Comment: Speci men Type: BLOOD SPECIMENOrdering Facility: [facility] Address: [address] [place] [address] Performed By: #### 5 7021-8 ####[facility] LABCLIA [id number] [address] LABCLIA [id number] [place] [address] [place] Dacrocytes LM Ql (Bld) Moderate Normal [facility] Comment on above: Order Comment: Speci men Type: BLOOD SPECIMENOrdering Facility: [facility] Address: [address] [place] [address] Performed By: #### 5 7021-8 ####[facility] LABCLIA [id number] [address] LABCLIA [id number] [place] [address] [place] Differential cell count method Nom (Bld) Manual Normal [facility] Comment on above: Order Comment: Speci men Type: BLOOD SPECIMENOrdering Facility: [facility] Address: [address] [place] [address] Performed By: #### 5 7021-8 ####[facility] LABCLIA [id number] [address] LABCLIA [id number] [place] [address] [place] Eosinophils (Bld) [#/Vol] 0.04 10*3/uL Normal <0.46 [facility] Comment on above: Order Comment: Speci men Type: BLOOD SPECIMENOrdering Facility: [facility] Address: [address] [place] [address] Performed By: #### 5 7021-8 ####[facility] LABCLIA [id number] [address] LABCLIA [id number] [place] [address] [place] Eosinophils/100 WBC (Bld) 1.0 % Normal [facility] Comment on above: Order Comment: Speci men Type: BLOOD SPECIMENOrdering Facility: [facility] Address: [address] [place] [address] Performed By: #### 5 7021-8 ####[facility] LABCLIA [id number] [address] LABCLIA [id number] [place] [address] [place] Erythrocyte distribution width (RBC) [Ratio] 21.0 % High 11.5-15.0 [facility] Comment on above: Order Comment: Speci men Type: BLOOD SPECIMENOrdering Facility: [facility] Address: [address] [place] [address] Performed By: #### 5 7021-8 ####[facility] LABCLIA [id number] [address] LABCLIA [id number] [place] [address] [place] Hematocrit (Bld) [Volume fraction] 22.2 % Low 39.0-51.0 [facility] Comment on above: Order Comment: Speci men Type: BLOOD SPECIMENOrdering Facility: [facility] Address: [address] [place] [address] Performed By: #### 5 7021-8 ####[facility] LABCLIA [id number] [address] LABCLIA [id number] [place] [address] [place] Hemoglobin (Bld) [Mass/Vol] 6.8 g/dL Low 13.0-17.0 [facility] Comment on above: Order Comment: Speci men Type: BLOOD SPECIMENOrdering Facility: [facility] Address: [address] [place] [address] Performed By: #### 5 7021-8 ####[facility] LABCLIA [id number] [address] LABCLIA [id number] [place] [address] [place] Lymphocytes (Bld) [#/Vol] 0.50 10*3/uL Low 1.00-4.00 [facility] Comment on above: Order Comment: Speci men Type: BLOOD SPECIMENOrdering Facility: [facility] Address: [address] [place] [address] Performed By: #### 5 7021-8 ####[facility] LABCLIA [id number] [address] LABCLIA [id number] [place] [address] [place] Lymphocytes/100 WBC (Bld) 14.0 % Normal [facility] Comment on above: Order Comment: Speci men Type: BLOOD SPECIMENOrdering Facility: [facility] Address: [address] [place] [address] Performed By: #### 5 7021-8 ####[facility] LABCLIA [id number] [address] LABCLIA [id number] [place] [address] [place] MCH (RBC) [Entitic mass] 29.4 pg Normal 26.0-34.0 [facility] Comment on above: Order Comment: Speci men Type: BLOOD SPECIMENOrdering Facility: [facility] Address: [address] [place] [address] Performed By: #### 5 7021-8 ####[facility] LABCLIA [id number] [address] LABCLIA [id number] [place] [address] [place] MCHC (RBC) [Mass/Vol] 30.6 g/dL Normal 30.5-36.[address] [facility] Comment on above: Order Comment: Speci men Type: BLOOD SPECIMENOrdering Facility: [facility] Address: [address] [place] [address] Performed By: #### 5 7021-8 ####[facility] LABCLIA [id number] [address] LABCLIA [id number] [place] [address] [place] MCV (RBC) [Entitic vol] 96.1 fL Normal 80.0-100.0 [facility] Comment on above: Order Comment: Speci men Type: BLOOD SPECIMENOrdering Facility: [facility] Address: [address] [place] [address] Performed By: #### 5 7021-8 ####[facility] LABCLIA [id number] [address] LABCLIA [id number] [place] [address] [place] Monocytes (Bld) [#/Vol] 0.18 10*3/uL Normal <0.87 [facility] Comment on above: Order Comment: Speci men Type: BLOOD SPECIMENOrdering Facility: [facility] Address: [address] [place] [address] Performed By: #### 5 7021-8 ####[facility] LABCLIA [id number] [address] LABCLIA [id number] [place] [address] [place] Monocytes/100 WBC (Bld) 5.0 % Normal [facility] Comment on above: Order Comment: Speci men Type: BLOOD SPECIMENOrdering Facility: [facility] Address: [address] [place] [address] Performed By: #### 5 7021-8 ####[facility] LABCLIA [id number] [address] LABCLIA [id number] [place] [address] [place] MYELO% 2.0 % Normal [facility] Comment on above: Order Comment: Speci men Type: BLOOD SPECIMENOrdering Facility: [facility] Address: [address] [place] [address] Performed By: #### 5 7021-8 ####[facility] LABCLIA [id number] [address] LABCLIA [id number] [place] [address] [place] Neutrophils (Bld) [#/Vol] 2.69 10*3/uL Normal 1.45-7.50 [facility] Comment on above: Order Comment: Speci men Type: BLOOD SPECIMENOrdering Facility: [facility] Address: [address] [place] [address] Performed By: #### 5 7021-8 ####[facility] LABCLIA [id number] [place] [address] LABCLIA [id number] [place] [address] [place] Neutrophils/100 WBC (Bld) 75.0 % Normal [facility] Comment on above: Order Comment: Speci men Type: BLOOD SPECIMENOrdering Facility: [facility] Address: [address] [place] [address] Performed By: #### 5 7021-8 ####[facility] LABCLIA [id number] [address] LABCLIA [id number] [place] [address] [place] Nucleated RBC (Bld) [#/Vol] 0.14 10*3/uL High <0.01 [facility] Comment on above: Order Comment: Speci men Type: BLOOD SPECIMENOrdering Facility: [facility] Address: [address] [place] [address] Performed By: #### 5 7021-8 ####[facility] LABCLIA [id number] [address] LABCLIA [id number] [place] [address] [place] Nucleated RBC/100 WBC (Bld) [Ratio] 4.0 /100 WBC Normal [facility] Comment on above: Order Comment: Speci men Type: BLOOD SPECIMENOrdering Facility: [facility] Address: [address] [place] [address] Performed By: #### 5 7021-8 ####[facility] LABCLIA [id number] [address] LABCLIA [id number] [place] [address] [place] Ovalocytes LM Ql (Bld) Few Normal [facility] Comment on above: Order Comment: Speci men Type: BLOOD SPECIMENOrdering Facility: [facility] Address: [facility] [place] [address] Performed By: #### 5 7021-8 ####[facility] LABCLIA [id number] [place] [address] LABCLIA [id number] [place] [address] [place] Platelet mean volume (Bld) [Entitic vol] 8.9 fL Low 9.0-12.7 [facility] Comment on above: Order Comment: Speci men Type: BLOOD SPECIMENOrdering Facility: [facility] Address: [address] [place] [address] Performed By: #### 5 7021-8 ####[facility] LABCLIA [id number] [address] LABCLIA [id number] [place] [address] [place] Platelets (Bld) [#/Vol] 137 10*3/uL Low 150-400 [facility] Comment on above: Order Comment: Speci men Type: BLOOD SPECIMENOrdering Facility: [facility] Address: [address] [place] [address] Performed By: #### 5 7021-8 ####[facility] LABCLIA [id number] [place] [address] LABCLIA [id number] [place] [address] [place] Platelets Estimate (Bld) [#/Vol] Decreased Normal [facility] Comment on above: Order Comment: Speci men Type: BLOOD SPECIMENOrdering Facility: [facility] Address: [address] [place] [address] Performed By: #### 5 7021-8 ####[facility] LABCLIA [id number] [address] LABCLIA [id number] [place] [address] [place] Polychromasia LM Ql (Bld) Slight Normal [facility] Comment on above: Order Comment: Speci men Type: BLOOD SPECIMENOrdering Facility: [facility] Address: [address] [place] [address] Performed By: #### 5 7021-8 ####[facility] LABCLIA [id number] [address] LABCLIA [id number] [place] [address] [place] RBC (Bld) [#/Vol] 2.31 10*6/uL Low 4.20-6.00 [facility] Comment on above: Order Comment: Speci men Type: BLOOD SPECIMENOrdering Facility: [facility] Address: [address] [place] [address] Performed By: #### 5 7021-8 ####[facility] LABCLIA [id number] [address] LABCLIA [id number] [place] [address] [place] RED CELL MORPH Reviewed: see result s of individual morphologies Normal [facility] Comment on above: Order Comment: Speci men Type: BLOOD SPECIMENOrdering Facility: [facility] Address: [address] [place] [address] Performed By: #### 5 7021-8 ####[facility] LABCLIA [id number] [address] LABCLIA [id number] [place] [address] [place] WBC (Bld) [#/Vol] 3.58 10*3/uL Low 3.70-11.00 [facility] Comment on above: Order Comment: Speci men Type: BLOOD SPECIMENOrdering Facility: [facility] Address: [address] [place] [address] Performed By: #### 5 7021-8 ####[facility] LABCLIA [id number] [place], [place] [address] LABCLIA [id number] [place] [address] [place] WBC Left Shift Ql (Bld) Present Normal [facility] Comment on above: Order Comment: Speci men Type: BLOOD SPECIMENOrdering Facility: [facility] Address: [address] [place] [address] Performed By: #### 5 7021-8 ####[facility] LABCLIA [id number] [place] [address] LABCLIA [id number] [place] [address] [place] CNOVSPon 04-07-2023 CNOVSP Normal [facility] CNPNon 04-07-2023 CNPN Normal [facility] Comprehensive metabolic 2000 panelon 04-07-2023 Albumin [Mass/Vol] 4.1 g/dL Normal 3.9-4.[address] [facility] Comment on above: Order Comment: Speci men Type: BLOOD SPECIMENOrdering Facility: [facility] Address: [address] [place] [address] Performed By: #### 2 4323-8 ####[facility] LABCLIA [id number] [place] [address] ALP [Catalytic activity/Vol] 319 U/L High 38-113 [facility] Comment on above: Order Comment: Speci men Type: BLOOD SPECIMENOrdering Facility: [facility] Address: [address] [place] [address] Performed By: #### 2 4323-8 ####[facility] LABCLIA [id number] [place] [address] ALT [Catalytic activity/Vol] 15 U/L Normal 10-54 [facility] Comment on above: Order Comment: Speci men Type: BLOOD SPECIMENOrdering Facility: [facility] Address: [address] [place] [address] Performed By: #### 2 4323-8 ####[facility] LABCLIA [id number] [place] [address] Anion gap [Moles/Vol] 9 mmol/L Normal 9-[address] [facility] Comment on above: Order Comment: Speci men Type: BLOOD SPECIMENOrdering Facility: [facility] Address: [address] [place] [address] Performed By: #### 2 4323-8 ####[facility] LABCLIA [id number] [place] [address] AST [Catalytic activity/Vol] 33 U/L Normal 14-40 [facility] Comment on above: Order Comment: Speci men Type: BLOOD SPECIMENOrdering Facility: [facility] Address: [address] [place] [address] Performed By: #### 2 4323-8 ####[facility] LABCLIA [id number] [place] [address] Bilirubin [Mass/Vol] 0.3 mg/dL Normal 0.2-1.3 [facility] Comment on above: Order Comment: Speci men Type: BLOOD SPECIMENOrdering Facility: [facility] Address: [address] [place] [address] Performed By: #### 2 4323-8 ####[facility] LABCLIA [id number] [place] [address] Calcium [Mass/Vol] 9.1 mg/dL Normal 8.5-10.[address] [facility] Comment on above: Order Comment: Speci men Type: BLOOD SPECIMENOrdering Facility: [facility] Address: [address] [place] [address] Performed By: #### 2 4323-8 ####[facility] LABCLIA [id number] [place] [address] Chloride [Moles/Vol] 107 mmol/L High 97-105 [facility] Comment on above: Order Comment: Speci men Type: BLOOD SPECIMENOrdering Facility: [facility] Address: [address] [place] [address] Performed By: #### 2 4323-8 ####[facility] LABCLIA [id number] [place] [address] CO2 [Moles/Vol] 24 mmol/L Normal 22-30 [facility] Comment on above: Order Comment: Speci men Type: BLOOD SPECIMENOrdering Facility: [facility] Address: [address] [place] [address] Performed By: #### 2 4323-8 ####[facility] LABCLIA [id number] [place] [address] Creatinine [Mass/Vol] 0.97 mg/dL Normal 0.73-1.[address] [facility] Comment on above: Order Comment: Speci men Type: BLOOD SPECIMENOrdering Facility: [facility] Address: [address] [place] [address] Performed By: #### 2 4323-8 ####[facility] LABCLIA [id number] [place] [address] Creatinine and Glomerular filtration rate.predicted panel (S/P/Bld) 77 mL/min/1.73m??? Normal >=60 [facility] Comment on above: Order Comment: Speci men Type: BLOOD SPECIMENOrdering Facility: [facility] Address: [address] [place] [address] Result Comment: Christelle mated Glomerular Filtration Rate (eGFR) is calculated using the 2020 CKD-EPI creatinine equation. This equation utilizes serum creatinine, sex, and age as parameters. The creatinine assay has traceable calibration to isotope dilution-mass spectrometry. Refer to KDIGO guidelines for clinical interpretation. In patients with unstable renal function, e.g. those with acute kidney injury, the eGFR may not accurately reflect actual GFR. Performed By: #### 2 4323-8 ####[facility] LABCLIA [id number] [place] [address] Glucose [Mass/Vol] 171 mg/dL High 74-[address] [facility] Comment on above: Order Comment: Speci men Type: BLOOD SPECIMENOrdering Facility: [facility] Address: [address] [place], [place] [id number] Result Comment: The [place] [employer] (ADA) provides guidance for cutoff values for fasting glucose and random glucose. The ADA defines fasting as no caloric intake for at least 8 hours. Fasting plasma glucose results between 100 to 125 mg/dL indicate increased risk for diabetes (prediabetes).Fasting plasma glucose results greater than or equal to 126 mg/dL meet the criteria for diagnosis of diabetes. In the absence of unequivocal hyperglycemia, results should be confirmed by repeat testing. In a patient with classic symptoms of hyperglycemia or hyperglycemic crisis, random plasma glucose results greater than or equal to 200 mg/dL meet the criteria for diagnosis of diabetes.Reference: Standards of Medical Care in Diabetes 2016, [place] [employer]. Diabetes Care. 2016.39(Suppl 1). Performed By: #### 2 4323-8 ####[facility] LABCLIA [id number] [place] [address] Potassium [Moles/Vol] 4.3 mmol/L Normal 3.7-5.[address] [facility] Comment on above: Order Comment: Speci men Type: BLOOD SPECIMENOrdering Facility: [facility] Address: [address] [place], [place] [id number] Performed By: #### 2 4323-8 ####[facility] LABCLIA [id number] [place] [address] Protein [Mass/Vol] 6.1 g/dL Low 6.3-8.[address] [facility] Comment on above: Order Comment: Speci men Type: BLOOD SPECIMENOrdering Facility: [facility] Address: [address] [place] [address] Performed By: #### 2 4323-8 ####[facility] LABCLIA [id number] [place] [address] Sodium [Moles/Vol] 140 mmol/L Normal 136-[address] [facility] Comment on above: Order Comment: Speci men Type: BLOOD SPECIMENOrdering Facility: [facility] Address: [place] [address] Performed By: #### 2 4323-8 ####[facility] LABCLIA [id number] [place] [address] Urea nitrogen [Mass/Vol] 15 mg/dL Normal 9-24 [facility] Comment on above: Order Comment: Speci men Type: BLOOD SPECIMENOrdering Facility: [facility] Address: [place] [address] Performed By: #### 2 4323-8 ####[facility] LABCLIA [id number] [place] [address] Consultation Noteon 04-07-20 Consultation Note [id number]#1.00TIFF Normal [facility] Prostate specific Ag [Mass/Vol] 1331.00 ng/mL High <2.60 [facility] Comment on above: Order Comment: Speci men Type: BLOOD SPECIMENOrdering Facility: [facility] Address: [place] [address] Result Comment: Saidaa irene PSA test methodology used is the Electrochemiluminescence Immunoassay by [employer]. Total PSA values by differing methodologies cannot be interchanged.For an individual patient, the significance of a PSA level should be interpreted in a broad clinical context, including age, race, family history, digital rectal exam, prostate size, results of prior testing (prostate biopsy, free PSA, PCA3), and use of 5-alpha reductase inhibitors. Considering the high incidence of asymptomatic cancer in the general population that may not pose an ultimate risk to a patient, the decision to recommend urological evaluation or prostate biopsy should be individualized after consideration of all these factors.REFERENCE:Ayla Arriaga M.D., M.P.H., Tl Betancourt M.D., Ph.D., Buster Church M.D., Lyubov Christiansen, M.P.H., Lawanda Ross Sc.D. Effect of Verification Bias on Screening for Prostate Cancer by Measurement of Prostatic Specific Antigen. N Engl J Med 2003,349:335-42. Performed By: #### 2 857-1 ####[facility] LABIA [id number] [place] [address] [place] Testost SerPl-mCncon 023 Testosterone [Mass/Vol] ng/dL Low 193-824 [facility] Comment on above: Order Comment: Speci men Type: BLOOD SPECIMENOrdering Facility: [facility] Address: [address] [place] [address] Result Comment: A te stosterone level in the 193-320 ng/dL range with associated clinical symptoms is considered low and may indicate hypogonadism (from [facility] 2010 363:123-135). Results >320 ng/dL are considered normal.Result rechecked. Performed By: #### 2 986-8 ####[facility] [id number] [place] [address] [place] CNPNon 04-05-2023 CNPN Normal [facility] CNPNon 04-04-2023 CNPN Normal [facility] CNOVSPon 03-31-2023 CNOVSP Normal [facility] CNPNon 03-31-2023 CNPN Normal [facility] CBC W Auto Differential pane l (Bld)on 03-30-2023 Anisocytosis Ql (Bld) Present Normal [facility] Comment on above: Order Comment: Speci men Type: BLOOD SPECIMENOrdering Facility: [facility] Address: [address] [place] [address] Performed By: #### 5 7021-8 ####[facility] [id number] [place] [address] [place] Basophils (Bld) [#/Vol] 0.00 10*3/uL Normal <0.11 [facility] Comment on above: Order Comment: Speci men Type: BLOOD SPECIMENOrdering Facility: [facility] Address: [address] [place] [address] Performed By: #### 5 7021-8 ####[facility] [id number] [place] [address] [place] Basophils/100 WBC (Bld) 0.0 % Normal [facility] Comment on above: Order Comment: Speci men Type: BLOOD SPECIMENOrdering Facility: [facility] Address: [address] [place] [address] Performed By: #### 5 7021-8 ####[facility] [id number] [place] [address] [place] Dacrocytes LM Ql (Bld) Moderate Normal [facility] Comment on above: Order Comment: Speci men Type: BLOOD SPECIMENOrdering Facility: [facility] Address: [address] [place] [address] Performed By: #### 5 7021-8 ####[facility] [place] [id number] [place] [address] [place] Differential cell count method Nom (Bld) Manual Normal [facility] Comment on above: Order Comment: Speci men Type: BLOOD SPECIMENOrdering Facility: [facility] Address: [address] [place] [address] Performed By: #### 5 7021-8 ####[facility] [id number] [place] [address] [place] Eosinophils (Bld) [#/Vol] 0.05 10*3/uL Normal <0.46 [facility] Comment on above: Order Comment: Speci men Type: BLOOD SPECIMENOrdering Facility: [facility] Address: [address] [place] [address] Performed By: #### 5 7021-8 ####[facility] [id number] [place] [address] [place] Eosinophils/100 WBC (Bld) 1.0 % Normal [facility] Comment on above: Order Comment: Speci men Type: BLOOD SPECIMENOrdering Facility: [facility] Address: [address] [place] [address] Performed By: #### 5 7021-8 ####[facility] [id number] [place] [address] [place] Erythrocyte distribution width (RBC) [Ratio] 20.7 % High 11.5-15.0 [facility] Comment on above: Order Comment: Speci men Type: BLOOD SPECIMENOrdering Facility: [facility] Address: [address] [place] [address] Performed By: #### 5 7021-8 ####[facility] [id number] [place] [address] [place] Hematocrit (Bld) [Volume fraction] 24.2 % Low 39.0-51.0 [facility] Comment on above: Order Comment: Speci men Type: BLOOD SPECIMENOrdering Facility: [facility] Address: [address] [place] [address] Performed By: #### 5 7021-8 ####[facility] [id number] [place] [address] [place] Hemoglobin (Bld) [Mass/Vol] 7.4 g/dL Low 13.0-17.0 [facility] Comment on above: Order Comment: Speci men Type: BLOOD SPECIMENOrdering Facility: [facility] Address: [address] [place] [address] Performed By: #### 5 7021-8 ####[facility] [id number] [place] [address] [place] Lymphocytes (Bld) [#/Vol] 0.53 10*3/uL Low 1.00-4.00 [facility] Comment on above: Order Comment: Speci men Type: BLOOD SPECIMENOrdering Facility: [facility] Address: [address] [place] [address] Performed By: #### 5 7021-8 ####[facility] [id number] [place] [address] [place] Lymphocytes/100 WBC (Bld) 11.0 % Normal [facility] Comment on above: Order Comment: Speci men Type: BLOOD SPECIMENOrdering Facility: [facility] Address: [address] [place] [address] Performed By: #### 5 7021-8 ####[facility] [id number] [place] [address] [place] MCH (RBC) [Entitic mass] 29.5 pg Normal 26.0-34.0 [facility] Comment on above: Order Comment: Speci men Type: BLOOD SPECIMENOrdering Facility: [facility] Address: [address] [place] [address] Performed By: #### 5 7021-8 ####[facility] [id number] [place] [address] [place] MCHC (RBC) [Mass/Vol] 30.6 g/dL Normal 30.5-36.[address] [facility] Comment on above: Order Comment: Speci men Type: BLOOD SPECIMENOrdering Facility: [facility] Address: [address] [place] [address] Performed By: #### 5 7021-8 ####[facility] [id number] [place] [address] [place] MCV (RBC) [Entitic vol] 96.4 fL Normal 80.0-100.0 [facility] Comment on above: Order Comment: Speci men Type: BLOOD SPECIMENOrdering Facility: [facility] Address: [address] [place] [address] Performed By: #### 5 7021-8 ####[facility] [id number] [place] [address] [place] Metamyelocytes/100 WBC (Bld) 1.0 % Normal [facility] Comment on above: Order Comment: Speci men Type: BLOOD SPECIMENOrdering Facility: [facility] Address: [address] [place] [address] Performed By: #### 5 7021-8 ####[facility] [id number] [place] [address] [place] Monocytes (Bld) [#/Vol] 0.24 10*3/uL Normal <0.87 [facility] Comment on above: Order Comment: Speci men Type: BLOOD SPECIMENOrdering Facility: [facility] Address: [address] [place] [address] Performed By: #### 5 7021-8 ####[facility] [id number] [place] [address] [place] Monocytes/100 WBC (Bld) 5.0 % Normal [facility] Comment on above: Order Comment: Speci men Type: BLOOD SPECIMENOrdering Facility: [facility] Address: [address] [place] [address] Performed By: #### 5 7021-8 ####[facility] [id number] [place] [address] [place] Neutrophils (Bld) [#/Vol] 3.97 10*3/uL Normal 1.45-7.50 [facility] Comment on above: Order Comment: Speci men Type: BLOOD SPECIMENOrdering Facility: [facility] Address: [address] [place] [address] Performed By: #### 5 7021-8 ####[facility] [id number] [place] [address] [place] Neutrophils/100 WBC (Bld) 82.0 % Normal [facility] Comment on above: Order Comment: Speci men Type: BLOOD SPECIMENOrdering Facility: [facility] Address: [address] [place] [address] Performed By: #### 5 7021-8 ####[facility] [id number] [place] [address] [place] Nucleated RBC (Bld) [#/Vol] 0.19 10*3/uL High <0.01 [facility] Comment on above: Order Comment: Speci men Type: BLOOD SPECIMENOrdering Facility: [facility] Address: [address] [place] [address] Performed By: #### 5 7021-8 ####[facility] [id number] [place] [address] [place] Nucleated RBC/100 WBC (Bld) [Ratio] 4.0 /100 WBC Normal [facility] Comment on above: Order Comment: Speci men Type: BLOOD SPECIMENOrdering Facility: [facility] Address: [address] [place] [address] Performed By: #### 5 7021-8 ####[facility] [id number] [place] [address] [place] Ovalocytes LM Ql (Bld) Few Normal [facility] Comment on above: Order Comment: Speci men Type: BLOOD SPECIMENOrdering Facility: [facility] Address: [address] [place] [address] Performed By: #### 5 7021-8 ####[facility] [id number] [place] [address] [place] Platelet mean volume (Bld) [Entitic vol] 9.3 fL Normal 9.0-12.7 [facility] Comment on above: Order Comment: Speci men Type: BLOOD SPECIMENOrdering Facility: [facility] Address: [address] [place] [address] Performed By: #### 5 7021-8 ####[facility] [id number] [place] [address] [place] Platelets (Bld) [#/Vol] 148 10*3/uL Low 150-400 [facility] Comment on above: Order Comment: Speci men Type: BLOOD SPECIMENOrdering Facility: [facility] Address: [address] [place] [address] Performed By: #### 5 7021-8 ####[facility] [id number] [place] [address] [place] Platelets Estimate (Bld) [#/Vol] Decreased Normal [facility] Comment on above: Order Comment: Speci men Type: BLOOD SPECIMENOrdering Facility: [facility] Address: [address] [place] [address] Performed By: #### 5 7021-8 ####[facility] [id number] [place] [address] [place] Polychromasia LM Ql (Bld) Slight Normal [facility] Comment on above: Order Comment: Speci men Type: BLOOD SPECIMENOrdering Facility: [facility] Address: [address] [place] [address] Performed By: #### 5 7021-8 ####[facility] [id number] [place] [address] [place] RBC (Bld) [#/Vol] 2.51 10*6/uL Low 4.20-6.00 [facility] Comment on above: Order Comment: Speci men Type: BLOOD SPECIMENOrdering Facility: [facility] Address: [address] [place] [address] Performed By: #### 5 7021-8 ####[facility] [id number] [place] [address] [place] RED CELL MORPH Reviewed: see result s of individual morphologies Normal [facility] Comment on above: Order Comment: Speci men Type: BLOOD SPECIMENOrdering Facility: [facility] Address: [address] [place] [address] Performed By: #### 5 7021-8 ####[facility] [id number] [place] [id number] [address] [place] WBC (Bld) [#/Vol] 4.84 10*3/uL Normal 3.70-11.00 [facility] Comment on above: Order Comment: Speci men Type: BLOOD SPECIMENOrdering Facility: [facility] Address: [address] [place] [address] Performed By: #### 5 7021-8 ####[facility] [id number] [place] [address] [place] WBC Left Shift Ql (Bld) Present Normal [facility] Comment on above: Order Comment: Speci men Type: BLOOD SPECIMENOrdering Facility: [facility] Address: [address] [place] [address] Performed By: #### 5 7021-8 ####[facility] [place] [id number] [place] [address] [place] CIRCULATING TUMOR DNA GENOMI C ANALYSIS FOR SOLID TUMORSon 03-30-2023 RESULTS View results in Scan cherry Documents link when available. Normal [facility] Comment on above: Order Comment: Speci men Type: BLOOD SPECIMENOrdering Facility: [facility] Address: [address] [place] [address] CNOVSPon 03-30-2023 CNOVSP Normal [facility] Comprehensive metabolic 2000 panelon 03-30-2023 Albumin [Mass/Vol] 4.3 g/dL Normal 3.9-4.[address] [facility] Comment on above: Order Comment: Speci men Type: BLOOD SPECIMENOrdering Facility: [facility] Address: [address] [place] [address] Performed By: #### 2 4323-8 ####[facility] [id number] [place] [address] [place] ALP [Catalytic activity/Vol] 271 U/L High 38-113 [facility] Comment on above: Order Comment: Speci men Type: BLOOD SPECIMENOrdering Facility: [facility] Address: [address] [place] [address] Performed By: #### 2 4323-8 ####[facility] [id number] [place] [address] [place] ALT [Catalytic activity/Vol] 15 U/L Normal 10-54 [facility] Comment on above: Order Comment: Speci men Type: BLOOD SPECIMENOrdering Facility: [facility] Address: [address] [place] [address] Performed By: #### 2 4323-8 ####[facility] [id number] [place] [address] [place] Anion gap [Moles/Vol] 10 mmol/L Normal 9-[address] [facility] Comment on above: Order Comment: Speci men Type: BLOOD SPECIMENOrdering Facility: [facility] Address: [address] [place] [address] Performed By: #### 2 4323-8 ####[facility] [id number] [place] [address] [place] AST [Catalytic activity/Vol] 25 U/L Normal 14-40 [facility] Comment on above: Order Comment: Speci men Type: BLOOD SPECIMENOrdering Facility: [facility] Address: [address] [place] [address] Performed By: #### 2 4323-8 ####[facility] [id number] [place] [address] [place] Bilirubin [Mass/Vol] 0.4 mg/dL Normal 0.2-1.3 [facility] Comment on above: Order Comment: Speci men Type: BLOOD SPECIMENOrdering Facility: [facility] Address: [address] [place] [address] Performed By: #### 2 4323-8 ####[facility] [id number] [place] [address] [place] Calcium [Mass/Vol] 8.3 mg/dL Low 8.5-10.[address] [facility] Comment on above: Order Comment: Speci men Type: BLOOD SPECIMENOrdering Facility: [facility] Address: [address] [place] [address] Performed By: #### 2 4323-8 ####[facility] [id number] [place] [address] [place] Chloride [Moles/Vol] 107 mmol/L High 97-105 [facility] Comment on above: Order Comment: Speci men Type: BLOOD SPECIMENOrdering Facility: [facility] Address: [address] [place] [address] Performed By: #### 2 4323-8 ####[facility] [place] [id number] [place] [address] [place] CO2 [Moles/Vol] 22 mmol/L Normal 22-30 [facility] Comment on above: Order Comment: Speci men Type: BLOOD SPECIMENOrdering Facility: [facility] Address: [address] [place] [address] Performed By: #### 2 4323-8 ####[facility] [id number] [place] [address] [place] Creatinine [Mass/Vol] 0.94 mg/dL Normal 0.73-1.[address] [facility] Comment on above: Order Comment: Speci men Type: BLOOD SPECIMENOrdering Facility: [facility] Address: [address] [place] [address] Performed By: #### 2 4323-8 ####[facility] [id number] [place] [address] [place] Creatinine and Glomerular filtration rate.predicted panel (S/P/Bld) 80 mL/min/1.73m??? Normal >=60 [facility] Comment on above: Order Comment: Speci men Type: BLOOD SPECIMENOrdering Facility: [facility] Address: [address] [place] [address] Result Comment: Christelle mated Glomerular Filtration Rate (eGFR) is calculated using the 2020 CKD-EPI creatinine equation. This equation utilizes serum creatinine, sex, and age as parameters. The creatinine assay has traceable calibration to isotope dilution-mass spectrometry. Refer to KDIGO guidelines for clinical interpretation. In patients with unstable renal function, e.g. those with acute kidney injury, the eGFR may not accurately reflect actual GFR. Performed By: #### 2 4323-8 ####[facility] [id number] [place] [address] [place] Glucose [Mass/Vol] 100 mg/dL High 74-[address] [facility] Comment on above: Order Comment: Vicki tovar Type: BLOOD SPECIMENOrdering Facility: [facility] Address: [address] [place] [address] Result Comment: The [place] [employer] (ADA) provides guidance for cutoff values for fasting glucose and random glucose. The ADA defines fasting as no caloric intake for at least 8 hours. Fasting plasma glucose results between 100 to 125 mg/dL indicate increased risk for diabetes (prediabetes).Fasting plasma glucose results greater than or equal to 126 mg/dL meet the criteria for diagnosis of diabetes. In the absence of unequivocal hyperglycemia, results should be confirmed by repeat testing. In a patient with classic symptoms of hyperglycemia or hyperglycemic crisis, random plasma glucose results greater than or equal to 200 mg/dL meet the criteria for diagnosis of diabetes.Reference: Standards of Medical Care in Diabetes 2016, [place] [employer]. Diabetes Care. 2016.39(Suppl 1). Performed By: #### 2 4323-8 ####[facility] [id number] [place] [address] [place] Potassium [Moles/Vol] 5.1 mmol/L Normal 3.7-5.[address] [facility] Comment on above: Order Comment: Vicki tovar Type: BLOOD SPECIMENOrdering Facility: [facility] Address: [address] [place] [id number] Performed By: #### 2 4323-8 ####[facility] [id number] [place] [address] [place] Protein [Mass/Vol] 6.5 g/dL Normal 6.3-8.[address] [facility] Comment on above: Order Comment: Speci men Type: BLOOD SPECIMENOrdering Facility: [facility] Address: [address] [place] [address] Performed By: #### 2 4323-8 ####[facility] [id number] [place] [address] [place] Sodium [Moles/Vol] 139 mmol/L Normal 136-[address] [facility] Comment on above: Order Comment: Speci men Type: BLOOD SPECIMENOrdering Facility: [facility] Address: [address] [place] [address] Performed By: #### 2 4323-8 ####[facility] [id number] [place] [address] [place] Urea nitrogen [Mass/Vol] 20 mg/dL Normal 9-24 [facility] Comment on above: Order Comment: Speci men Type: BLOOD SPECIMENOrdering Facility: [facility] Address: [address] [place] [address] Performed By: #### 2 4323-8 ####[facility] [id number] [place] [address] [place] HISTORY PHYSICALon 3 HISTORY PHYSICAL Normal [facility] Consultation Noteon 03-29-20 23 Consultation Note [id number] Normal [facility] CBC W Auto Differential pane l (Bld)on 03-24-2023 Anisocytosis Ql (Bld) Present Normal [facility] Comment on above: Order Comment: Speci men Type: BLOOD SPECIMENOrdering Facility: [facility] Address: [address] [place] [address] Performed By: #### 5 7021-8 ####[facility] LABIA [id number] [place], [place] [id number] [id number] [place] [id number] [place] Basophils (Bld) [#/Vol] 0.10 10*3/uL Normal <0.11 [facility] Comment on above: Order Comment: Speci men Type: BLOOD SPECIMENOrdering Facility: [facility] Address: [address] [place] [address] Performed By: #### 5 7021-8 ####[facility] LABCLIA [id number] [address] LABCLIA [id number] [place] [address] [place] Basophils/100 WBC (Bld) 1.9 % Normal [facility] Comment on above: Order Comment: Speci men Type: BLOOD SPECIMENOrdering Facility: [facility] Address: [address] [place] [address] Performed By: #### 5 7021-8 ####[facility] LABCLIA [id number] [address] LABCLIA [id number] [place] [address] [place] Dacrocytes LM Ql (Bld) Moderate Normal [facility] Comment on above: Order Comment: Speci men Type: BLOOD SPECIMENOrdering Facility: [facility] Address: [address] [place] [address] Performed By: #### 5 7021-8 ####[facility] LABCLIA [id number] [address] LABCLIA [id number] [place] [address] [place] Differential cell count method Nom (Bld) Manual Normal [facility] Comment on above: Order Comment: Speci men Type: BLOOD SPECIMENOrdering Facility: [facility] Address: [address] [place] [address] Performed By: #### 5 7021-8 ####[facility] LABCLIA [id number] [address] LABCLIA [id number] [place] [address] [place] Eosinophils (Bld) [#/Vol] 0.00 10*3/uL Normal <0.46 [facility] Comment on above: Order Comment: Speci men Type: BLOOD SPECIMENOrdering Facility: [facility] Address: [address] [place] [address] Performed By: #### 5 7021-8 ####[facility] LABCLIA [id number] [address] LABCLIA [id number] [place] [address] [place] Eosinophils/100 WBC (Bld) 0.0 % Normal [facility] Comment on above: Order Comment: Speci men Type: BLOOD SPECIMENOrdering Facility: [facility] Address: [address] [place] [address] Performed By: #### 5 7021-8 ####[facility] LABCLIA [id number] [address] LABCLIA [id number] [place] [address] [place] Erythrocyte distribution width (RBC) [Ratio] 20.1 % High 11.5-15.0 [facility] Comment on above: Order Comment: Speci men Type: BLOOD SPECIMENOrdering Facility: [facility] Address: [address] [place] [address] Performed By: #### 5 7021-8 ####[facility] LABCLIA [id number] [address] LABCLIA [id number] [place] [address] [place] Hematocrit (Bld) [Volume fraction] 26.1 % Low 39.0-51.0 [facility] Comment on above: Order Comment: Speci men Type: BLOOD SPECIMENOrdering Facility: [facility] Address: [address] [place] [address] Performed By: #### 5 7021-8 ####[facility] LABCLIA [id number] [address] LABCLIA [id number] [place] [address] [place] Hemoglobin (Bld) [Mass/Vol] 8.0 g/dL Low 13.0-17.0 [facility] Comment on above: Order Comment: Speci men Type: BLOOD SPECIMENOrdering Facility: [facility] Address: [address] [place] [address] Performed By: #### 5 7021-8 ####[facility] LABCLIA [id number] [address] LABCLIA [id number] [place] [address] [place] Lymphocytes (Bld) [#/Vol] 0.49 10*3/uL Low 1.00-4.00 [facility] Comment on above: Order Comment: Speci men Type: BLOOD SPECIMENOrdering Facility: [facility] Address: [address] [place] [address] Performed By: #### 5 7021-8 ####[facility] LABCLIA [id number] [address] LABCLIA [id number] [place] [address] [place] Lymphocytes/100 WBC (Bld) 9.3 % Normal [facility] Comment on above: Order Comment: Speci men Type: BLOOD SPECIMENOrdering Facility: [facility] Address: [address] [place] [address] Performed By: #### 5 7021-8 ####[facility] LABCLIA [id number] [place] [id number] LABCLIA [id number] [place] [address] [place] MCH (RBC) [Entitic mass] 28.9 pg Normal 26.0-34.0 [facility] Comment on above: Order Comment: Speci men Type: BLOOD SPECIMENOrdering Facility: [facility] Address: [address] [place] [address] Performed By: #### 5 7021-8 ####[facility] LABCLIA [id number] [address] LABCLIA [id number] [place] [address] [place] MCHC (RBC) [Mass/Vol] 30.7 g/dL Normal 30.5-36.[address] [facility] Comment on above: Order Comment: Speci men Type: BLOOD SPECIMENOrdering Facility: [facility] Address: [address] [place] [address] Performed By: #### 5 7021-8 ####[facility] LABCLIA [id number] [address] LABCLIA [id number] [place] [address] [place] MCV (RBC) [Entitic vol] 94.2 fL Normal 80.0-100.0 [facility] Comment on above: Order Comment: Speci men Type: BLOOD SPECIMENOrdering Facility: [facility] Address: [address] [place] [address] Performed By: #### 5 7021-8 ####[facility] LABCLIA [id number] [address] LABCLIA [id number] [place] [address] [place] Monocytes (Bld) [#/Vol] 0.39 10*3/uL Normal <0.87 [facility] Comment on above: Order Comment: Speci men Type: BLOOD SPECIMENOrdering Facility: [facility] Address: [address] [place] [address] Performed By: #### 5 7021-8 ####[facility] LABCLIA [id number] [place] [id number] LABCLIA [id number] [place] [address] [place] Monocytes/100 WBC (Bld) 7.5 % Normal [facility] Comment on above: Order Comment: Speci men Type: BLOOD SPECIMENOrdering Facility: [facility] Address: [address] [place] [address] Performed By: #### 5 7021-8 ####[facility] LABCLIA [id number] [address] LABCLIA [id number] [place] [address] [place] Neutrophils (Bld) [#/Vol] 4.24 10*3/uL Normal 1.45-7.50 [facility] Comment on above: Order Comment: Speci men Type: BLOOD SPECIMENOrdering Facility: [facility] Address: [address] [place] [address] Performed By: #### 5 7021-8 ####[facility] LABCLIA [id number] [place] [id number] LABCLIA [id number] [place] [address] [place] Neutrophils/100 WBC (Bld) 81.3 % Normal [facility] Comment on above: Order Comment: Speci men Type: BLOOD SPECIMENOrdering Facility: [facility] Address: [address] [place] [address] Performed By: #### 5 7021-8 ####[facility] LABCLIA [id number] [address] LABCLIA [id number] [place] [address] [place] Nucleated RBC (Bld) [#/Vol] 0.15 10*3/uL High <0.01 [facility] Comment on above: Order Comment: Speci men Type: BLOOD SPECIMENOrdering Facility: [facility] Address: [address] [place] [address] Performed By: #### 5 7021-8 ####[facility] LABCLIA [id number] [address] LABCLIA [id number] [place] [address] [place] Nucleated RBC/100 WBC (Bld) [Ratio] 2.8 /100 WBC Normal [facility] Comment on above: Order Comment: Speci men Type: BLOOD SPECIMENOrdering Facility: [facility] Address: [address] [place] [address] Performed By: #### 5 7021-8 ####[facility] LABCLIA [id number] [address] LABCLIA [id number] [place] [address] [place] Ovalocytes LM Ql (Bld) Few Normal [facility] Comment on above: Order Comment: Speci men Type: BLOOD SPECIMENOrdering Facility: [facility] Address: [address] [place] [address] Performed By: #### 5 7021-8 ####[facility] LABCLIA [id number] [address] LABCLIA [id number] [place] [address] [place] Platelet mean volume (Bld) [Entitic vol] 9.6 fL Normal 9.0-12.7 [facility] Comment on above: Order Comment: Speci men Type: BLOOD SPECIMENOrdering Facility: [facility] Address: [address] [place] [address] Performed By: #### 5 7021-8 ####[facility] LABCLIA [id number] [address] LABCLIA [id number] [place] [address] [place] Platelets (Bld) [#/Vol] 135 10*3/uL Low 150-400 [facility] Comment on above: Order Comment: Speci men Type: BLOOD SPECIMENOrdering Facility: [facility] Address: [address] [place] [address] Performed By: #### 5 7021-8 ####[facility] LABCLIA [id number] [address] LABCLIA [id number] [place] [address] [place] Platelets Estimate (Bld) [#/Vol] Decreased Normal [facility] Comment on above: Order Comment: Speci men Type: BLOOD SPECIMENOrdering Facility: [facility] Address: [address] [place] [address] Performed By: #### 5 7021-8 ####[facility] LABCLIA [id number] [address] LABCLIA [id number] [place] [address] [place] Polychromasia LM Ql (Bld) Slight Normal [facility] Comment on above: Order Comment: Speci men Type: BLOOD SPECIMENOrdering Facility: [facility] Address: [address] [place] [address] Performed By: #### 5 7021-8 ####[facility] LABCLIA [id number] [address] LABCLIA [id number] [place] [address] [place] RBC (Bld) [#/Vol] 2.77 10*6/uL Low 4.20-6.00 [facility] Comment on above: Order Comment: Speci men Type: BLOOD SPECIMENOrdering Facility: [facility] Address: [address] [place] [address] Performed By: #### 5 7021-8 ####[facility] LABCLIA [id number] [address] LABCLIA [id number] [place] [address] [place] RBC FRAGMENTS Few Abnormal None Seen [facility] Comment on above: Order Comment: Speci men Type: BLOOD SPECIMENOrdering Facility: [facility] Address: [address] [place] [address] Performed By: #### 5 7021-8 ####[facility] LABCLIA [id number] [address] LABCLIA [id number] [place] [address] [place] RED CELL MORPH Reviewed: see result s of individual morphologies Normal [facility] Comment on above: Order Comment: Speci men Type: BLOOD SPECIMENOrdering Facility: [facility] Address: [address] [place] [address] Performed By: #### 5 7021-8 ####[facility] LABCLIA [id number] [address] LABCLIA [id number] [place] [address] [place] WBC (Bld) [#/Vol] 5.22 10*3/uL Normal 3.70-11.00 [facility] Comment on above: Order Comment: Speci men Type: BLOOD SPECIMENOrdering Facility: [facility] Address: [address] [place] [address] Performed By: #### 5 7021-8 ####[facility] LABCLIA [id number] [place], [place] [address] LABCLIA [id number] [place] [address] [place] CNOVSPon 03-24-2023 CNOVSP Normal [facility] Consultation Noteon 03-24-20 Consultation Note [id number]#1.00TIFF Normal [facility] Consultation Note [id number]#1.00TIFF Normal [facility] CNPNon 03-21-2023 CNPN Normal [facility] CBC W Auto Differential pane l (Bld)on 03-17-2023 Anisocytosis Ql (Bld) Present Normal [facility] Comment on above: Order Comment: Speci men Type: BLOOD SPECIMENOrdering Facility: [facility] Address: [address] [place] [address] Performed By: #### 5 7021-8 ####[facility] LABCLIA [id number] [place] [address] [place] Basophils (Bld) [#/Vol] 0.09 10*3/uL Normal <0.11 [facility] Comment on above: Order Comment: Speci men Type: BLOOD SPECIMENOrdering Facility: [facility] Address: [address] [place] [address] Performed By: #### 5 7021-8 ####[facility] LABCLIA [id number] [place] [address] [place] Basophils/100 WBC (Bld) 2.0 % Normal [facility] Comment on above: Order Comment: Speci men Type: BLOOD SPECIMENOrdering Facility: [facility] Address: [address] [place] [address] Performed By: #### 5 7021-8 ####[facility] LABCLIA [id number] [place] [address] [place] Dacrocytes LM Ql (Bld) Moderate Normal [facility] Comment on above: Order Comment: Speci men Type: BLOOD SPECIMENOrdering Facility: [facility] Address: [address] [place] [address] Performed By: #### 5 7021-8 ####[facility] LABCLIA [id number] [place] [address] [place] Eosinophils (Bld) [#/Vol] 0.00 10*3/uL Normal <0.46 [facility] Comment on above: Order Comment: Speci men Type: BLOOD SPECIMENOrdering Facility: [facility] Address: [address] [place] [address] Performed By: #### 5 7021-8 ####[facility] LABCLIA [id number] [place] [address] [place] Eosinophils/100 WBC (Bld) 0.0 % Normal [facility] Comment on above: Order Comment: Speci men Type: BLOOD SPECIMENOrdering Facility: [facility] Address: [address] [place] [address] Performed By: #### 5 7021-8 ####[facility] LABIA [id number] [place] [address] [place] Erythrocyte distribution width (RBC) [Ratio] 19.5 % High 11.5-15.0 [facility] Comment on above: Order Comment: Speci men Type: BLOOD SPECIMENOrdering Facility: [facility] Address: [address] [place] [address] Performed By: #### 5 7021-8 ####[facility] LABIA [id number] [address] [place] Hematocrit (Bld) [Volume fraction] 25.7 % Low 39.0-51.0 [facility] Comment on above: Order Comment: Speci men Type: BLOOD SPECIMENOrdering Facility: [facility] Address: [address] [place] [address] Performed By: #### 5 7021-8 ####[facility] LABCLIA [id number] [place] [address] [place] Hemoglobin (Bld) [Mass/Vol] 7.8 g/dL Low 13.0-17.0 [facility] Comment on above: Order Comment: Speci men Type: BLOOD SPECIMENOrdering Facility: [facility] Address: [address] [place] [address] Performed By: #### 5 7021-8 ####[facility] LABIA [id number] [place] [address] [place] Lymphocytes (Bld) [#/Vol] 0.64 10*3/uL Low 1.00-4.00 [facility] Comment on above: Order Comment: Speci men Type: BLOOD SPECIMENOrdering Facility: [facility] Address: [address] [place] [address] Performed By: #### 5 7021-8 ####[facility] LABIA [id number] [place] [address] [place] Lymphocytes/100 WBC (Bld) 15.0 % Normal [facility] Comment on above: Order Comment: Speci men Type: BLOOD SPECIMENOrdering Facility: [facility] Address: [address] [place] [address] Performed By: #### 5 7021-8 ####[facility] LABIA [id number] [place] [address] [place] MCH (RBC) [Entitic mass] 28.6 pg Normal 26.0-34.0 [facility] Comment on above: Order Comment: Speci men Type: BLOOD SPECIMENOrdering Facility: [facility] Address: [address] [place] [address] Performed By: #### 5 7021-8 ####[facility] LABIA [id number] [place] [address] [place] MCHC (RBC) [Mass/Vol] 30.4 g/dL Low 30.5-36.[address] [facility] Comment on above: Order Comment: Speci men Type: BLOOD SPECIMENOrdering Facility: [facility] Address: [address] [place] [address] Performed By: #### 5 7021-8 ####[facility] LABCLIA [id number] [place] [address] [place] MCV (RBC) [Entitic vol] 94.1 fL Normal 80.0-100.0 [facility] Comment on above: Order Comment: Speci men Type: BLOOD SPECIMENOrdering Facility: [facility] Address: [address] [place] [address] Performed By: #### 5 7021-8 ####[facility] LABCLIA [id number] [place] [address] [place] Metamyelocytes/100 WBC (Bld) 3.0 % Normal [facility] Comment on above: Order Comment: Speci men Type: BLOOD SPECIMENOrdering Facility: [facility] Address: [address] [place] [address] Performed By: #### 5 7021-8 ####[facility] LABCLIA [id number] [place] [address] [place] Monocytes (Bld) [#/Vol] 0.26 10*3/uL Normal <0.87 [facility] Comment on above: Order Comment: Speci men Type: BLOOD SPECIMENOrdering Facility: [facility] Address: [address] [place] [address] Performed By: #### 5 7021-8 ####[facility] LABCLIA [id number] [place] [address] [place] Monocytes/100 WBC (Bld) 6.0 % Normal [facility] Comment on above: Order Comment: Speci men Type: BLOOD SPECIMENOrdering Facility: [facility] Address: [address] [place] [address] Performed By: #### 5 7021-8 ####[facility] LABCLIA [id number] [place] [address] [place] MYELO% 4.0 % Normal [facility] Comment on above: Order Comment: Speci men Type: BLOOD SPECIMENOrdering Facility: [facility] Address: [address] [place] [address] Performed By: #### 5 7021-8 ####[facility] LABCLIA [id number] [place] [address] [place] Neutrophils (Bld) [#/Vol] 3.00 10*3/uL Normal 1.45-7.50 [facility] Comment on above: Order Comment: Speci men Type: BLOOD SPECIMENOrdering Facility: [facility] Address: [address] [place] [address] Performed By: #### 5 7021-8 ####[facility] LABCLIA [id number] [place] [address] [place] Neutrophils/100 WBC (Bld) 70.0 % Normal [facility] Comment on above: Order Comment: Speci men Type: BLOOD SPECIMENOrdering Facility: [facility] Address: [address] [place] [address] Performed By: #### 5 7021-8 ####[facility] LABCLIA [id number] [place] [address] [place] Nucleated RBC (Bld) [#/Vol] 0.47 10*3/uL High <0.01 [facility] Comment on above: Order Comment: Speci men Type: BLOOD SPECIMENOrdering Facility: [facility] Address: [address] [place] [address] Performed By: #### 5 7021-8 ####[facility] LABCLIA [id number] [place] [address] [place] Nucleated RBC/100 WBC (Bld) [Ratio] 11.0 /100 WBC Normal [facility] Comment on above: Order Comment: Speci men Type: BLOOD SPECIMENOrdering Facility: [facility] Address: [address] [place] [address] Performed By: #### 5 7021-8 ####[facility] LABCLIA [id number] [place] [address] [place] Ovalocytes LM Ql (Bld) Few Normal [facility] Comment on above: Order Comment: Speci men Type: BLOOD SPECIMENOrdering Facility: [facility] Address: [address] [place] [address] Performed By: #### 5 7021-8 ####[facility] LABCLIA [id number] [place] [address] [place] Platelet mean volume (Bld) [Entitic vol] 9.3 fL Normal 9.0-12.7 [facility] Comment on above: Order Comment: Speci men Type: BLOOD SPECIMENOrdering Facility: [facility] Address: [address] [place] [address] Performed By: #### 5 7021-8 ####[facility] LABCLIA [id number] [place] [address] [place] Platelets (Bld) [#/Vol] 115 10*3/uL Low 150-400 [facility] Comment on above: Order Comment: Speci men Type: BLOOD SPECIMENOrdering Facility: [facility] Address: [address] [place] [address] Performed By: #### 5 7021-8 ####[facility] LABCLIA [id number] [place] [address] [place] Platelets Estimate (Bld) [#/Vol] Decreased Normal [facility] Comment on above: Order Comment: Speci men Type: BLOOD SPECIMENOrdering Facility: [facility] Address: [address] [place] [address] Performed By: #### 5 7021-8 ####[facility] LABCLIA [id number] [place] [address] [place] Polychromasia LM Ql (Bld) Slight Normal [facility] Comment on above: Order Comment: Speci men Type: BLOOD SPECIMENOrdering Facility: [facility] Address: [address] [place] [address] Performed By: #### 5 7021-8 ####[facility] LABCLIA [id number] [place] [address] [place] RBC (Bld) [#/Vol] 2.73 10*6/uL Low 4.20-6.00 [facility] Comment on above: Order Comment: Speci men Type: BLOOD SPECIMENOrdering Facility: [facility] Address: [address] [place] [address] Performed By: #### 5 7021-8 ####[facility] LABCLIA [id number] [place] [address] [place] RBC FRAGMENTS Few Abnormal None Seen [facility] Comment on above: Order Comment: Speci men Type: BLOOD SPECIMENOrdering Facility: [facility] Address: [address] [place] [address] Performed By: #### 5 7021-8 ####[facility] LABCLIA [id number] [place] [address] [place] RED CELL MORPH Reviewed: see result s of individual morphologies Normal [facility] Comment on above: Order Comment: Speci men Type: BLOOD SPECIMENOrdering Facility: [facility] Address: [address] [place] [address] Performed By: #### 5 7021-8 ####[facility] LABCLIA [id number] [place] [address] [place] WBC (Bld) [#/Vol] 4.28 10*3/uL Normal 3.70-11.00 [facility] Comment on above: Order Comment: Speci men Type: BLOOD SPECIMENOrdering Facility: [facility] Address: [address] [place] [address] Performed By: #### 5 7021-8 ####[facility] LABCLIA [id number] [place] [address] [place] WBC Left Shift Ql (Bld) Present Normal [facility] Comment on above: Order Comment: Speci men Type: BLOOD SPECIMENOrdering Facility: [facility] Address: [address] [place] [address] Performed By: #### 5 7021-8 ####[facility] LABCLIA [id number] [place] [address] [place] CNOVSPon 03-17-2023 CNOVSP Normal [facility] metabolic 2000 panelon 03-17-2023 Albumin [Mass/Vol] 4.3 g/dL Normal 3.9-4.[address] [facility] Comment on above: Order Comment: Speci men Type: BLOOD SPECIMENOrdering Facility: [facility] Address: [address] [place] [address] Performed By: #### 5 0190-8, 2275-4 ####[facility] LABCLIA [id number] [place] [address] [place]#### 77029-6 ####[facility] LABCLIA [id number] [place] [address] ALP [Catalytic activity/Vol] 438 U/L High 38-113 [facility] Comment on above: Order Comment: Speci men Type: BLOOD SPECIMENOrdering Facility: [facility] Address: [address] [place] [address] Performed By: #### 5 0190-8, 2275-4 ####[facility] LABCLIA [id number] [place] [address] [place]#### 70803-0 ####[facility] [facility] LABCLIA [id number] [place] [address] ALT [Catalytic activity/Vol] 13 U/L Normal 10-54 [facility] Comment on above: Order Comment: Speci men Type: BLOOD SPECIMENOrdering Facility: [facility] Address: [address] [place] [address] Performed By: #### 5 0190-8, 2275- ####[facility] LABCLIA [id number] [place] [address] [place]#### 71247-1 ####[facility] LABCLIA [id number] [place] [address] Anion gap [Moles/Vol] 6 mmol/L Low 9-[address] [facility] Comment on above: Order Comment: Speci men Type: BLOOD SPECIMENOrdering Facility: [facility] Address: [address] [place] [address] Performed By: #### 5 0190-8, 2275-08 ####[facility] LABCLIA [id number] [place] [address] [place]#### 08349-8 ####[facility] LABCLIA [id number] [place] [address] AST [Catalytic activity/Vol] 28 U/L Normal 14-40 [facility] Comment on above: Order Comment: Speci men Type: BLOOD SPECIMENOrdering Facility: [facility] Address: [address] [place] [address] Performed By: #### 5 0190-8, 2275-08 ####[facility] LABCLIA [id number] [place] [address] [place]#### 07714-7 ####[facility] LABCLIA [id number] [place] [address] Bilirubin [Mass/Vol] 0.3 mg/dL Normal 0.2-1.3 [facility] Comment on above: Order Comment: Speci men Type: BLOOD SPECIMENOrdering Facility: [facility] Address: [address] [place] [address] Performed By: #### 5 0190-8, 2275-08 ####[facility] LABCLIA [id number] [place] [address] [place]#### 30302-3 ####[facility] LABCLIA [id number] [place] [address] Calcium [Mass/Vol] 8.7 mg/dL Normal 8.5-10.[address] [facility] Comment on above: Order Comment: Speci men Type: BLOOD SPECIMENOrdering Facility: [facility] Address: [address] [place] [address] Performed By: #### 5 0190-8, 2275-08 ####[facility] LABCLIA [id number] [place] [address] [place]#### 35563-4 ####[facility] LABCLIA [id number] [place] [address] Chloride [Moles/Vol] 107 mmol/L High 97-105 [facility] Comment on above: Order Comment: Speci men Type: BLOOD SPECIMENOrdering Facility: [facility] Address: [address] [place] [address] Performed By: #### 5 0190-8, 2275-08 ####[facility] LABCLIA [id number] [place] [address] [place]#### 63804-0 ####[facility] LABCLIA [id number] [place] [address] CO2 [Moles/Vol] 25 mmol/L Normal 22-30 [facility] Comment on above: Order Comment: Speci men Type: BLOOD SPECIMENOrdering Facility: [facility] Address: [address] [place] [address] Performed By: #### 5 0190-8, 2275-08 ####[facility] LABCLIA [id number] [place] [address] [place]#### 31816-7 ####[facility] LABCLIA [id number] [place] [address] Creatinine [Mass/Vol] 0.98 mg/dL Normal 0.73-1.[address] [facility] Comment on above: Order Comment: Speci men Type: BLOOD SPECIMENOrdering Facility: [facility] Address: [address] [place] [address] Performed By: #### 5 0190-8, 2275-4 ####[facility] LABCLIA [id number] [address]#### 56183-6 ####[facility] LABIA [id number] [place] [address] Creatinine and Glomerular filtration rate.predicted panel (S/P/Bld) 77 mL/min/1.73m??? Normal >=60 [facility] Comment on above: Order Comment: Speci men Type: BLOOD SPECIMENOrdering Facility: [facility] Address: [address] [place] [address] Result Comment: Christelle mated Glomerular Filtration Rate (eGFR) is calculated using the 2020 CKD-EPI creatinine equation. This equation utilizes serum creatinine, sex, and age as parameters. The creatinine assay has traceable calibration to isotope dilution-mass spectrometry. Refer to KDIGO guidelines for clinical interpretation. In patients with unstable renal function, e.g. those with acute kidney injury, the eGFR may not accurately reflect actual GFR. Performed By: #### 5 0190-8, 2275-4 ####[facility] LABCLIA [id number] [place] [address] [place]#### 19346-1 ####[facility] LABCLIA [id number] [place] [address] Glucose [Mass/Vol] 143 mg/dL High 74-[address] [facility] Comment on above: Order Comment: Speci men Type: BLOOD SPECIMENOrdering Facility: [facility] Address: [address] [place] [address] Result Comment: The [place] Diabetes Association (ADA) provides guidance for cutoff values for fasting glucose and random glucose. The ADA defines fasting as no caloric intake for at least 8 hours. Fasting plasma glucose results between 100 to 125 mg/dL indicate increased risk for diabetes (prediabetes).Fasting plasma glucose results greater than or equal to 126 mg/dL meet the criteria for diagnosis of diabetes. In the absence of unequivocal hyperglycemia, results should be confirmed by repeat testing. In a patient with classic symptoms of hyperglycemia or hyperglycemic crisis, random plasma glucose results greater than or equal to 200 mg/dL meet the criteria for diagnosis of diabetes.Reference: Standards of Medical Care in Diabetes 2016, [place] [employer]. Diabetes Care. 2016.39(Suppl 1). Performed By: #### 5 0190-8, 2275- ####[facility] LABCLIA [id number] [place] [address] [place]#### 49677-0 ####[facility] LABCLIA [id number] [place] [address] Potassium [Moles/Vol] 4.7 mmol/L Normal 3.7-5.[address] [facility] Comment on above: Order Comment: Vicki men Type: BLOOD SPECIMENOrdering Facility: [facility] Address: [address] [place] [address] Performed By: #### 5 0190-8, 2275-08 ####[facility] LABCLIA [id number] [place] [address] [place]#### 87016-4 ####[facility] LABCLIA [id number] [place] [address] Protein [Mass/Vol] 6.1 g/dL Low 6.3-8.[address] [facility] Comment on above: Order Comment: Speci men Type: BLOOD SPECIMENOrdering Facility: [facility] Address: [address] [place] [address] Performed By: #### 5 0190-8, 2275-08 ####[facility] LABCLIA [id number] [place] [address] [place]#### 78650-2 ####[facility] LABCLIA [id number] [place] [address] Sodium [Moles/Vol] 138 mmol/L Normal 136-[address] [facility] Comment on above: Order Comment: Speci men Type: BLOOD SPECIMENOrdering Facility: [facility] Address: [address] [place] [address] Performed By: #### 5 0190-8, 2275-08 ####[facility] LABCLIA [id number] [place] [address] [place]#### 72927-1 ####[facility] LABCLIA [id number] [place] [address] Urea nitrogen [Mass/Vol] 19 mg/dL Normal 9-24 [facility] Comment on above: Order Comment: Speci men Type: BLOOD SPECIMENOrdering Facility: [facility] Address: [address] [place] [address] Performed By: #### 5 0190-8, 2275-08 ####[facility] LABCLIA [id number] [place] [address] [place]#### 00557-0 ####[facility] LABCLIA [id number] [place] [address] [facility] Ferritin [Mass/Vol] 1380.0 ng/mL High 30.3-565.[address] [facility] Comment on above: Order Comment: Speci men Type: BLOOD SPECIMENOrdering Facility: [facility] Address: [address] [place] [address] Performed By: #### 5 0190-8, 2275-08 ####[facility] LABCLIA [id number] [place] [address] [place]#### 79494-6 ####[facility] LABCLIA [id number] [place] [address] Iron and Iron binding capaci ty panelon 03-17-2023 Iron [Mass/Vol] 119 ug/dL Normal 41-186 [facility] Comment on above: Order Comment: Speci men Type: BLOOD SPECIMENOrdering Facility: [facility] Address: [address] [place] [address] Performed By: #### 5 0190-8, 2275-08 ####[facility] LABCLIA [id number] [place] [address] [place]#### 28171-1 ####[facility] LABCLIA [id number] [place] [address] Iron binding capacity [Mass/Vol] 274 ug/dL Normal 232-386 [facility] Comment on above: Order Comment: Speci men Type: BLOOD SPECIMENOrdering Facility: [facility] Address: [address] [place] [address] Performed By: #### 5 0190-8, 2275-08 ####[facility] LABCLIA [id number] [place] [address] [place]#### 37491-6 ####[facility] LABCLIA [id number] [place] [address] Iron/TIBC [Molar ratio] 43.4 % Normal 15.0-57.0 [facility] Comment on above: Order Comment: Speci men Type: BLOOD SPECIMENOrdering Facility: [facility] Address: [address] [place] [address] Performed By: #### 5 0190-8, 2275-08 ####[facility] LABCLIA [id number] [place] [id number] [place]#### 66602-1 ####[facility] LABCLIA [id number] [place] [address] PSA SerPl-mCncon 03-17-2023 Prostate specific Ag [Mass/Vol] 1313.00 ng/mL High <2.60 [facility] Comment on above: Order Comment: Speci men Type: BLOOD SPECIMENOrdering Facility: [facility] Address: [address] [place] [address] Result Comment: Tota irene PSA test methodology used is the Electrochemiluminescence Immunoassay by [employer]. Total PSA values by differing methodologies cannot be interchanged.For an individual patient, the significance of a PSA level should be interpreted in a broad clinical context, including age, race, family history, digital rectal exam, prostate size, results of prior testing (prostate biopsy, free PSA, PCA3), and use of 5-alpha reductase inhibitors. Considering the high incidence of asymptomatic cancer in the general population that may not pose an ultimate risk to a patient, the decision to recommend urological evaluation or prostate biopsy should be individualized after consideration of all these factors.REFERENCE:Ayla Arriaga M.D., M.P.H., Tl Betancourt M.D., Ph.D., Buster Church M.D., Lyubov Christiansen, M.P.H., Lawanda Ross, Sc.Markie. Effect of Verification Bias on Screening for Prostate Cancer by Measurement of Prostatic Specific Antigen. N Engl J Med 2003,349:335-42. Performed By: #### 2 857-1 ####[facility] LABCLIA [id number] [place] [id number] [place] CNPNon 03-08-2023 CNPN Normal [facility] Consultation Noteon 03-08-20 Consultation Note [id number]#[id number] Normal [facility] metabolic 2000 panelon 03-03-2023 Anion gap [Moles/Vol] 9 mmol/L Normal 9-[address] [facility] Comment on above: Order Comment: Speci men Type: BLOOD SPECIMENOrdering Facility: [facility] Address: [address] [place] [address] Performed By: #### 2 4321-2 ####[facility] LABCLIA [id number] [place] [address] Calcium [Mass/Vol] 8.9 mg/dL Normal 8.5-10.[address] [facility] Comment on above: Order Comment: Speci men Type: BLOOD SPECIMENOrdering Facility: [facility] Address: [address] [place] [address] Performed By: #### 2 4321-2 ####[facility] LABCLIA [id number] [place] [address] Chloride [Moles/Vol] 106 mmol/L High 97-105 [facility] Comment on above: Order Comment: Speci men Type: BLOOD SPECIMENOrdering Facility: [facility] Address: [address] [place] [address] Performed By: #### 2 4321-2 ####[facility] LABCLIA [id number] [place] [address] CO2 [Moles/Vol] 23 mmol/L Normal 22-30 [facility] Comment on above: Order Comment: Speci men Type: BLOOD SPECIMENOrdering Facility: [facility] Address: [address] [place] [address] Performed By: #### 2 4321-2 ####[facility] LABCLIA [id number] [place] [address] Creatinine [Mass/Vol] 0.92 mg/dL Normal 0.73-1.[address] [facility] Comment on above: Order Comment: Speci men Type: BLOOD SPECIMENOrdering Facility: [facility] Address: [address] [place] [address] Performed By: #### 2 4321-2 ####[facility] LABCLIA [id number] [place] [address] Creatinine and Glomerular filtration rate.predicted panel (S/P/Bld) 83 mL/min/1.73m??? Normal >=60 [facility] Comment on above: Order Comment: Spectwan men Type: BLOOD SPECIMENOrdering Facility: [facility] Address: [address] [place] [address] Result Comment: Christelle mated Glomerular Filtration Rate (eGFR) is calculated using the 2020 CKD-EPI creatinine equation. This equation utilizes serum creatinine, sex, and age as parameters. The creatinine assay has traceable calibration to isotope dilution-mass spectrometry. Refer to KDIGO guidelines for clinical interpretation. In patients with unstable renal function, e.g. those with acute kidney injury, the eGFR may not accurately reflect actual GFR. Performed By: #### 2 4321-2 ####[facility] LABIA [id number] [place] [address] Glucose [Mass/Vol] 182 mg/dL High 74-[address] [facility] Comment on above: Order Comment: Speci men Type: BLOOD SPECIMENOrdering Facility: [facility] Address: [address] [place] [address] Result Comment: The [place] Diabetes Association (ADA) provides guidance for cutoff values for fasting glucose and random glucose. The ADA defines fasting as no caloric intake for at least 8 hours. Fasting plasma glucose results between 100 to 125 mg/dL indicate increased risk for diabetes (prediabetes).Fasting plasma glucose results greater than or equal to 126 mg/dL meet the criteria for diagnosis of diabetes. In the absence of unequivocal hyperglycemia, results should be confirmed by repeat testing. In a patient with classic symptoms of hyperglycemia or hyperglycemic crisis, random plasma glucose results greater than or equal to 200 mg/dL meet the criteria for diagnosis of diabetes.Reference: Standards of Medical Care in Diabetes 2016, [place] [employer]. Diabetes Care. 2016.39(Suppl 1). Performed By: #### 2 4321-2 ####[facility] LABIA [id number] [place] [address] Potassium [Moles/Vol] 4.6 mmol/L Normal 3.7-5.[address] [facility] Comment on above: Order Comment: Speci men Type: BLOOD SPECIMENOrdering Facility: [facility] Address: [address] [place] [address] Performed By: #### 2 4321-2 ####[facility] LABCLIA [id number] [place] [address] Sodium [Moles/Vol] 138 mmol/L Normal 136-[address] [facility] Comment on above: Order Comment: Speci men Type: BLOOD SPECIMENOrdering Facility: [facility] Address: [address] [place] [address] Performed By: #### 2 4321-2 ####[facility] LABCLIA [id number] [place] [address] Urea nitrogen [Mass/Vol] 21 mg/dL Normal 9-24 [facility] Comment on above: Order Comment: Speci men Type: BLOOD SPECIMENOrdering Facility: [facility] Address: [address] [place] [address] Performed By: #### 2 4321-2 ####[facility] LABCLIA [id number] [place] [address] Anion gap [Moles/Vol] 9 mmol/L 9 - 18 mmol/L [facility] Calcium [Mass/Vol] 8.9 mg/dL 8.5 - 10. 2 mg/dL [facility] Chloride [Moles/Vol] 106 mmol/L High 97 - 10 5 mmol/L [facility] CO2 [Moles/Vol] 23 mmol/L 22 - 30 mmol/L [facility] Creatinine [Mass/Vol] 0.92 mg/dL 0.73 - 1.22 mg/dL [facility] Estimated Glomerular Filtration Rate 83 mL/min/1.73m >=60 mL/min/1.73m [facility] Glucose [Mass/Vol] 182 mg/dL High 74 - 99 mg/dL [facility] Potassium [Moles/Vol] 4.6 mmol/L 3.7 - 5.1 mmol/L [facility] Sodium [Moles/Vol] 138 mmol/L 136 - 144 mmol/L [facility] Urea nitrogen [Mass/Vol] 21 mg/dL 9 - 24 mg/dL [facility] CBC W Auto Differential pane l (Bld)on 03-03-2023 Anisocytosis Ql (Bld) Present Normal [facility] Comment on above: Order Comment: Speci men Type: BLOOD SPECIMENOrdering Facility: [facility] Address: [address] [place] [address] Performed By: #### 5 7021-8 ####[facility] LABCLIA [id number] [address] LABCLIA [id number] [place] [address] [place] Basophils (Bld) [#/Vol] 0.04 10*3/uL Normal <0.11 [facility] Comment on above: Order Comment: Speci men Type: BLOOD SPECIMENOrdering Facility: [facility] Address: [address] [place] [address] Performed By: #### 5 7021-8 ####[facility] LABCLIA [id number] [address] LABCLIA [id number] [place] [address] [place] Basophils/100 WBC (Bld) 1.0 % Normal [facility] Comment on above: Order Comment: Speci men Type: BLOOD SPECIMENOrdering Facility: [facility] Address: [address] [place] [address] Performed By: #### 5 7021-8 ####[facility] LABCLIA [id number] [address] LABCLIA [id number] [place] [address] [place] Dacrocytes LM Ql (Bld) Few Normal [facility] Comment on above: Order Comment: Speci men Type: BLOOD SPECIMENOrdering Facility: [facility] Address: [address] [place] [address] Performed By: #### 5 7021-8 ####[facility] LABCLIA [id number] [place] [id number] LABCLIA [id number] [place] [address] [place] Differential cell count method Nom (Bld) Manual Normal [facility] Comment on above: Order Comment: Speci men Type: BLOOD SPECIMENOrdering Facility: [facility] Address: [address] [place] [address] Performed By: #### 5 7021-8 ####[facility] LABCLIA [id number] [address] LABCLIA [id number] [place] [address] [place] Eosinophils (Bld) [#/Vol] 0.04 10*3/uL Normal <0.46 [facility] Comment on above: Order Comment: Speci men Type: BLOOD SPECIMENOrdering Facility: [facility] Address: [address] [place] [address] Performed By: #### 5 7021-8 ####[facility] LABCLIA [id number] [address] LABCLIA [id number] [place] [address] [place] Eosinophils/100 WBC (Bld) 1.0 % Normal [facility] Comment on above: Order Comment: Speci men Type: BLOOD SPECIMENOrdering Facility: [facility] Address: [address] [place] [address] Performed By: #### 5 7021-8 ####[facility] LABCLIA [id number] [address] LABCLIA [id number] [place] [address] [place] Erythrocyte distribution width (RBC) [Ratio] 17.2 % High 11.5-15.0 [facility] Comment on above: Order Comment: Speci men Type: BLOOD SPECIMENOrdering Facility: [facility] Address: [address] [place] [address] Performed By: #### 5 7021-8 ####[facility] LABCLIA [id number] [place] [id number] LABCLIA [id number] [place] [address] [place] Hematocrit (Bld) [Volume fraction] 29.3 % Low 39.0-51.0 [facility] Comment on above: Order Comment: Speci men Type: BLOOD SPECIMENOrdering Facility: [facility] Address: [address] [place] [address] Performed By: #### 5 7021-8 ####[facility] LABCLIA [id number] [address] LABCLIA [id number] [place] [address] [place] Hemoglobin (Bld) [Mass/Vol] 9.0 g/dL Low 13.0-17.0 [facility] Comment on above: Order Comment: Speci men Type: BLOOD SPECIMENOrdering Facility: [facility] Address: [address] [place] [address] Performed By: #### 5 7021-8 ####[facility] LABCLIA [id number] [address] LABCLIA [id number] [place] [address] [place] Lymphocytes (Bld) [#/Vol] 0.54 10*3/uL Low 1.00-4.00 [facility] Comment on above: Order Comment: Speci men Type: BLOOD SPECIMENOrdering Facility: [facility] Address: [address] [place] [address] Performed By: #### 5 7021-8 ####[facility] LABCLIA [id number] [place] [id number] LABCLIA [id number] [place] [address] [place] Lymphocytes/100 WBC (Bld) 12.0 % Normal [facility] Comment on above: Order Comment: Speci men Type: BLOOD SPECIMENOrdering Facility: [facility] Address: [address] [place] [address] Performed By: #### 5 7021-8 ####[facility] LABCLIA [id number] [address] LABCLIA [id number] [place] [address] [place] MCH (RBC) [Entitic mass] 28.1 pg Normal 26.0-34.0 [facility] Comment on above: Order Comment: Speci men Type: BLOOD SPECIMENOrdering Facility: [facility] Address: [address] [place] [address] Performed By: #### 5 7021-8 ####[facility] LABCLIA [id number] [address] LABCLIA [id number] [place] [address] [place] MCHC (RBC) [Mass/Vol] 30.7 g/dL Normal 30.5-36.[address] [facility] Comment on above: Order Comment: Speci men Type: BLOOD SPECIMENOrdering Facility: [facility] Address: [address] [place] [address] Performed By: #### 5 7021-8 ####[facility] LABCLIA [id number] [address] LABCLIA [id number] [place] [address] [place] MCV (RBC) [Entitic vol] 91.6 fL Normal 80.0-100.0 [facility] Comment on above: Order Comment: Speci men Type: BLOOD SPECIMENOrdering Facility: [facility] Address: [address] [place] [address] Performed By: #### 5 7021-8 ####[facility] LABCLIA [id number] [place] [id number] LABCLIA [id number] [place] [address] [place] Monocytes (Bld) [#/Vol] 0.45 10*3/uL Normal <0.87 [facility] Comment on above: Order Comment: Speci men Type: BLOOD SPECIMENOrdering Facility: [facility] Address: [address] [place] [address] Performed By: #### 5 7021-8 ####[facility] LABCLIA [id number] [address] LABCLIA [id number] [place] [address] [place] Monocytes/100 WBC (Bld) 10.0 % Normal [facility] Comment on above: Order Comment: Speci men Type: BLOOD SPECIMENOrdering Facility: [facility] Address: [address] [place] [address] Performed By: #### 5 7021-8 ####[facility]INEFR[facility] LABCLIA [id number] [place] [id number] LABCLIA [id number] [place] [address] [place] MYELO% 2.0 % Normal [facility] Comment on above: Order Comment: Speci men Type: BLOOD SPECIMENOrdering Facility: [facility] Address: [address] [place] [address] Performed By: #### 5 7021-8 ####[facility] LABCLIA [id number] [address] LABCLIA [id number] [place] [address] [place] Neutrophils (Bld) [#/Vol] 3.30 10*3/uL Normal 1.45-7.50 [facility] Comment on above: Order Comment: Speci men Type: BLOOD SPECIMENOrdering Facility: [facility] Address: [address] [place] [address] Performed By: #### 5 7021-8 ####[facility] LABCLIA [id number] [address] LABCLIA [id number] [place] [address] [place] Neutrophils/100 WBC (Bld) 74.0 % Normal [facility] Comment on above: Order Comment: Speci men Type: BLOOD SPECIMENOrdering Facility: [facility] Address: [address] [place] [address] Performed By: #### 5 7021-8 ####[facility] LABCLIA [id number] [address] LABCLIA [id number] [place] [address] [place] Nucleated RBC (Bld) [#/Vol] 0.09 10*3/uL High <0.01 [facility] Comment on above: Order Comment: Speci men Type: BLOOD SPECIMENOrdering Facility: [facility] Address: [address] [place] [address] Performed By: #### 5 7021-8 ####[facility] LABCLIA [id number] [address] LABCLIA [id number] [place] [address] [place] Nucleated RBC/100 WBC (Bld) [Ratio] 2.0 /100 WBC Normal [facility] Comment on above: Order Comment: Speci men Type: BLOOD SPECIMENOrdering Facility: [facility] Address: [address] [place] [address] Performed By: #### 5 7021-8 ####[facility] LABCLIA [id number] [address] LABCLIA [id number] [place] [address] [place] Ovalocytes LM Ql (Bld) Few Normal [facility] Comment on above: Order Comment: Speci men Type: BLOOD SPECIMENOrdering Facility: [facility] Address: [address] [place] [address] Performed By: #### 5 7021-8 ####[facility] LABCLIA [id number] [address] LABCLIA [id number] [place] [address] [place] Platelet mean volume (Bld) [Entitic vol] 9.7 fL Normal 9.0-12.7 [facility] Comment on above: Order Comment: Speci men Type: BLOOD SPECIMENOrdering Facility: [facility] Address: [address] [place] [address] Performed By: #### 5 7021-8 ####[facility] LABCLIA [id number] [address] LABCLIA [id number] [place] [address] [place] Platelets (Bld) [#/Vol] 111 10*3/uL Low 150-400 [facility] Comment on above: Order Comment: Speci men Type: BLOOD SPECIMENOrdering Facility: [facility] Address: [address] [place] [address] Performed By: #### 5 7021-8 ####[facility] LABCLIA [id number] [address] LABCLIA [id number] [place] [address] [place] Platelets Estimate (Bld) [#/Vol] Decreased Normal [facility] Comment on above: Order Comment: Speci men Type: BLOOD SPECIMENOrdering Facility: [facility] Address: [address] [place] [address] Performed By: #### 5 7021-8 ####[facility] LABCLIA [id number] [address] LABCLIA [id number] [place] [address] [place] Polychromasia LM Ql (Bld) Slight Normal [facility] Comment on above: Order Comment: Speci men Type: BLOOD SPECIMENOrdering Facility: [facility] Address: [address] [place] [address] Performed By: #### 5 7021-8 ####[facility] LABCLIA [id number] [address] LABCLIA [id number] [place] [address] [place] RBC (Bld) [#/Vol] 3.20 10*6/uL Low 4.20-6.00 [facility] Comment on above: Order Comment: Speci men Type: BLOOD SPECIMENOrdering Facility: [facility] Address: [address] [place] [address] Performed By: #### 5 7021-8 ####[facility] LABCLIA [id number] [address] LABCLIA [id number] [place] [address] [place] RED CELL MORPH Reviewed: see result s of individual morphologies Normal [facility] Comment on above: Order Comment: Speci men Type: BLOOD SPECIMENOrdering Facility: [facility] Address: [address] [place] [address] Performed By: #### 5 7021-8 ####[facility] LABCLIA [id number] [place], [place] [address] LABCLIA [id number] [place] [address] [place] SPHEROCYTES Few Normal [facility] Comment on above: Order Comment: Speci men Type: BLOOD SPECIMENOrdering Facility: [facility] Address: [address] [place] [address] Performed By: #### 5 7021-8 ####[facility] LABCLIA [id number] [address] LABCLIA [id number] [place] [address] [place] WBC (Bld) [#/Vol] 4.46 10*3/uL Normal 3.70-11.00 [facility] Comment on above: Order Comment: Speci men Type: BLOOD SPECIMENOrdering Facility: [facility] Address: [address] [place] [address] Performed By: #### 5 7021-8 ####[facility] LABCLIA [id number] [place] [address] LABCLIA [id number] [place] [address] [place] WBC Left Shift Ql (Bld) Present Normal [facility] Comment on above: Order Comment: Speci men Type: BLOOD SPECIMENOrdering Facility: [facility] Address: [address] [place] [address] Performed By: #### 5 7021-8 ####[facility] LABCLIA [id number] [place] [address] LABCLIA [id number] [place] [address] [place] CBC W Auto Differential pane l (Bld)on 02-24-2023 Anisocytosis Ql (Bld) Present Normal [facility] Comment on above: Order Comment: Speci men Type: BLOOD SPECIMENOrdering Facility: [facility] Address: [address] [place] [address] Performed By: #### 5 7021-8 ####[facility] LABCLIA [id number] [address] LABCLIA [id number] [place] [address] [place] Basophils (Bld) [#/Vol] 0.25 10*3/uL High <0.11 [facility] Comment on above: Order Comment: Speci men Type: BLOOD SPECIMENOrdering Facility: [facility] Address: [address] [place] [address] Performed By: #### 5 7021-8 ####[facility] LABCLIA [id number] [address] LABCLIA [id number] [place] [address] [place] Basophils/100 WBC (Bld) 5.0 % Normal [facility] Comment on above: Order Comment: Speci men Type: BLOOD SPECIMENOrdering Facility: [facility] Address: [address] [place] [address] Performed By: #### 5 7021-8 ####[facility] LABCLIA [id number] [address] LABCLIA [id number] [place] [address] [place] Dacrocytes LM Ql (Bld) Few Normal [facility] Comment on above: Order Comment: Speci men Type: BLOOD SPECIMENOrdering Facility: [facility] Address: [address] [place] [address] Performed By: #### 5 7021-8 ####[facility] LABCLIA [id number] [address] LABCLIA [id number] [place] [address] [place] Differential cell count method Nom (Bld) Manual Normal [facility] Comment on above: Order Comment: Speci men Type: BLOOD SPECIMENOrdering Facility: [facility] Address: [address] [place] [address] Performed By: #### 5 7021-8 ####[facility] LABCLIA [id number] [address] LABCLIA [id number] [place] [address] [place] Eosinophils (Bld) [#/Vol] 0.10 10*3/uL Normal <0.46 [facility] Comment on above: Order Comment: Speci men Type: BLOOD SPECIMENOrdering Facility: [facility] Address: [address] [place] [address] Performed By: #### 5 7021-8 ####[facility] LABCLIA [id number] [address] LABCLIA [id number] [place] [address] [place] Eosinophils/100 WBC (Bld) 2.0 % Normal [facility] Comment on above: Order Comment: Speci men Type: BLOOD SPECIMENOrdering Facility: [facility] Address: [address] [place] [address] Performed By: #### 5 7021-8 ####[facility] LABCLIA [id number] [address] LABCLIA [id number] [place] [address] [place] Erythrocyte distribution width (RBC) [Ratio] 16.6 % High 11.5-15.0 [facility] Comment on above: Order Comment: Speci men Type: BLOOD SPECIMENOrdering Facility: [facility] Address: [address] [place] [address] Performed By: #### 5 7021-8 ####[facility] LABCLIA [id number] [place] [address] LABCLIA [id number] [place] [address] [place] Hematocrit (Bld) [Volume fraction] 30.9 % Low 39.0-51.0 [facility] Comment on above: Order Comment: Speci men Type: BLOOD SPECIMENOrdering Facility: [facility] Address: [address] [place] [address] Performed By: #### 5 7021-8 ####[facility] LABCLIA [id number] [address] LABCLIA [id number] [place] [address] [place] Hemoglobin (Bld) [Mass/Vol] 9.6 g/dL Low 13.0-17.0 [facility] Comment on above: Order Comment: Speci men Type: BLOOD SPECIMENOrdering Facility: [facility] Address: [address] [place] [address] Performed By: #### 5 7021-8 ####[facility] LABCLIA [id number] [address] LABCLIA [id number] [place] [address] [place] Lymphocytes (Bld) [#/Vol] 0.80 10*3/uL Low 1.00-4.00 [facility] Comment on above: Order Comment: Speci men Type: BLOOD SPECIMENOrdering Facility: [facility] Address: [address] [place] [address] Performed By: #### 5 7021-8 ####[facility] LABCLIA [id number] [address] LABCLIA [id number] [place] [address] [place] Lymphocytes/100 WBC (Bld) 16.0 % Normal [facility] Comment on above: Order Comment: Speci men Type: BLOOD SPECIMENOrdering Facility: [facility] Address: [address] [place] [address] Performed By: #### 5 7021-8 ####[facility] LABCLIA [id number] [address] LABCLIA [id number] [place] [address] [place] MCH (RBC) [Entitic mass] 28.3 pg Normal 26.0-34.0 [facility] Comment on above: Order Comment: Speci men Type: BLOOD SPECIMENOrdering Facility: [facility] Address: [address] [place] [address] Performed By: #### 5 7021-8 ####[facility] LABCLIA [id number] [address] LABCLIA [id number] [place] [address] [place] MCHC (RBC) [Mass/Vol] 31.1 g/dL Normal 30.5-36.[address] [facility] Comment on above: Order Comment: Speci men Type: BLOOD SPECIMENOrdering Facility: [facility] Address: [address] [place] [address] Performed By: #### 5 7021-8 ####[facility] LABCLIA [id number] [address] LABCLIA [id number] [place] [address] [place] MCV (RBC) [Entitic vol] 91.2 fL Normal 80.0-100.0 [facility] Comment on above: Order Comment: Speci men Type: BLOOD SPECIMENOrdering Facility: [facility] Address: [address] [place] [address] Performed By: #### 5 7021-8 ####[facility] LABCLIA [id number] [address] LABCLIA [id number] [address] [address] [place] Metamyelocytes/100 WBC (Bld) 3.0 % Normal [facility] Comment on above: Order Comment: Speci men Type: BLOOD SPECIMENOrdering Facility: [facility] Address: [address] [place] [address] Performed By: #### 5 7021-8 ####[facility] LABCLIA [id number] [address] LABCLIA [id number] [place] [address] [place] Monocytes (Bld) [#/Vol] 0.35 10*3/uL Normal <0.87 [facility] Comment on above: Order Comment: Speci men Type: BLOOD SPECIMENOrdering Facility: [facility] Address: [address] [place] [address] Performed By: #### 5 7021-8 ####[facility] LABCLIA [id number] [address] LABCLIA [id number] [place] [address] [place] Monocytes/100 WBC (Bld) 7.0 % Normal [facility] Comment on above: Order Comment: Speci men Type: BLOOD SPECIMENOrdering Facility: [facility] Address: [address] [place] [address] Performed By: #### 5 7021-8 ####[facility] LABCLIA [id number] [address] LABCLIA [id number] [place] [address] [place] MYELO% 5.0 % Normal [facility] Comment on above: Order Comment: Speci men Type: BLOOD SPECIMENOrdering Facility: [facility] Address: [address] [place] [address] Performed By: #### 5 7021-8 ####[facility] LABCLIA [id number] [place] [id number] LABCLIA [id number] [place] [address] [place] Neutrophils (Bld) [#/Vol] 3.12 10*3/uL Normal 1.45-7.50 [facility] Comment on above: Order Comment: Speci men Type: BLOOD SPECIMENOrdering Facility: [facility] Address: [address] [place] [address] Performed By: #### 5 7021-8 ####[facility] LABCLIA [id number] [address] LABCLIA [id number] [place] [address] [place] Neutrophils/100 WBC (Bld) 62.0 % Normal [facility] Comment on above: Order Comment: Speci men Type: BLOOD SPECIMENOrdering Facility: [facility] Address: [address] [place] [address] Performed By: #### 5 7021-8 ####[facility] LABCLIA [id number] [address] LABCLIA [id number] [place] [address] [place] Nucleated RBC (Bld) [#/Vol] 10*3/uL Normal <0.01 [facility] Comment on above: Order Comment: Speci men Type: BLOOD SPECIMENOrdering Facility: [facility] Address: [address] [place] [address] Performed By: #### 5 7021-8 ####[facility] LABCLIA [id number] [address] LABCLIA [id number] [place] [address] [place] Nucleated RBC/100 WBC (Bld) [Ratio] 0.0 /100 WBC Normal [facility] Comment on above: Order Comment: Speci men Type: BLOOD SPECIMENOrdering Facility: [facility] Address: [address] [place] [address] Performed By: #### 5 7021-8 ####[facility] LABCLIA [id number] [address] LABCLIA [id number] [place] [address] [place] Ovalocytes LM Ql (Bld) Few Normal [facility] Comment on above: Order Comment: Speci men Type: BLOOD SPECIMENOrdering Facility: [facility] Address: [address] [place] [address] Performed By: #### 5 7021-8 ####[facility] LABCLIA [id number] [address] LABCLIA [id number] [place] [address] [place] Platelet mean volume (Bld) [Entitic vol] 9.8 fL Normal 9.0-12.7 [facility] Comment on above: Order Comment: Speci men Type: BLOOD SPECIMENOrdering Facility: [facility] Address: [address] [place] [address] Performed By: #### 5 7021-8 ####[facility] LABCLIA [id number] [address] LABCLIA [id number] [place] [address] [place] Platelets (Bld) [#/Vol] 93 10*3/uL Low 150-400 [facility] Comment on above: Order Comment: Speci men Type: BLOOD SPECIMENOrdering Facility: [facility] Address: [address] [place] [address] Result Comment: No c lot detected. Performed By: #### 5 7021-8 ####[facility] LABCLIA [id number] [place] [id number] LABCLIA [id number] [place] [address] [place] Platelets Estimate (Bld) [#/Vol] Decreased Normal [facility] Comment on above: Order Comment: Speci men Type: BLOOD SPECIMENOrdering Facility: [facility] Address: [address] [place] [address] Performed By: #### 5 7021-8 ####[facility] LABCLIA [id number] [address] LABCLIA [id number] [place] [address] [place] Polychromasia LM Ql (Bld) Slight Normal [facility] Comment on above: Order Comment: Speci men Type: BLOOD SPECIMENOrdering Facility: [facility] Address: [address] [place] [address] Performed By: #### 5 7021-8 ####[facility] LABCLIA [id number] [address] LABCLIA [id number] [place] [address] [place] RBC (Bld) [#/Vol] 3.39 10*6/uL Low 4.20-6.00 [facility] Comment on above: Order Comment: Speci men Type: BLOOD SPECIMENOrdering Facility: [facility] Address: [address] [place] [address] Performed By: #### 5 7021-8 ####[facility] LABCLIA [id number] [address] LABCLIA [id number] [place] [address] [place] RED CELL MORPH Reviewed: see result s of individual morphologies Normal [facility] Comment on above: Order Comment: Speci men Type: BLOOD SPECIMENOrdering Facility: [facility] Address: [facility] [place] [address] Performed By: #### 5 7021-8 ####[facility] LABCLIA [id number] [place] [address] LABCLIA [id number] [place] [address] [place] WBC (Bld) [#/Vol] 5.03 10*3/uL Normal 3.70-11.00 [facility] Comment on above: Order Comment: Speci men Type: BLOOD SPECIMENOrdering Facility: [facility] Address: [address] [place] [address] Performed By: #### 5 7021-8 ####[facility] LABCLIA [id number] [address] LABCLIA [id number] [place] [address] [place] WBC Left Shift Ql (Bld) Present Normal [facility] Comment on above: Order Comment: Speci men Type: BLOOD SPECIMENOrdering Facility: [facility] Address: [address] [place] [address] Performed By: #### 5 7021-8 ####[facility] LABCLIA [id number] [place] [address] LABCLIA [id number] [place] [address] [place] CNOVSPon 02-24-2023 CNOVSP Normal [facility] CNPNon 02-24-2023 CNPN Normal [facility] Comprehensive metabolic 2000 panelon 02-24-2023 Albumin [Mass/Vol] 4.3 g/dL Normal 3.9-4.[address] [facility] Comment on above: Order Comment: Speci men Type: BLOOD SPECIMENOrdering Facility: [facility] Address: [address] [place] [address] Performed By: #### 2 4323-8 ####[facility] LABCLIA [id number] [place] [address] ALP [Catalytic activity/Vol] 756 U/L High 38-113 [facility] Comment on above: Order Comment: Speci men Type: BLOOD SPECIMENOrdering Facility: [facility] Address: [address] [place] [address] Performed By: #### 2 4323-8 ####[facility] LABCLIA [id number] [place] [address] ALT [Catalytic activity/Vol] 18 U/L Normal 10-54 [facility] Comment on above: Order Comment: Speci men Type: BLOOD SPECIMENOrdering Facility: [facility] Address: [address] [place] [address] Performed By: #### 2 4323-8 ####[facility] LABCLIA [id number] [place] [address] Anion gap [Moles/Vol] 8 mmol/L Low 9-[address] [facility] Comment on above: Order Comment: Speci men Type: BLOOD SPECIMENOrdering Facility: [facility] Address: [address] [place] [address] Performed By: #### 2 4323-8 ####[facility] LABCLIA [id number] [place] [address] AST [Catalytic activity/Vol] 25 U/L Normal 14-40 [facility] Comment on above: Order Comment: Speci men Type: BLOOD SPECIMENOrdering Facility: [facility] Address: [address] [place] [address] Performed By: #### 2 4323-8 ####[facility] LABCLIA [id number] [place] [address] Bilirubin [Mass/Vol] 0.3 mg/dL Normal 0.2-1.3 [facility] Comment on above: Order Comment: Speci men Type: BLOOD SPECIMENOrdering Facility: [facility] Address: [address] [place] [address] Performed By: #### 2 4323-8 ####[facility] LABCLIA [id number] [place] [address] Calcium [Mass/Vol] 9.0 mg/dL Normal 8.5-10.[address] [facility] Comment on above: Order Comment: Speci men Type: BLOOD SPECIMENOrdering Facility: [facility] Address: [address] [place] [address] Performed By: #### 2 4323-8 ####[facility] LABCLIA [id number] [place] [address] Chloride [Moles/Vol] 105 mmol/L Normal 97-105 [facility] Comment on above: Order Comment: Speci men Type: BLOOD SPECIMENOrdering Facility: [facility] Address: [address] [place] [address] Performed By: #### 2 4323-8 ####[facility] LABCLIA [id number] [place] [address] CO2 [Moles/Vol] 25 mmol/L Normal 22-30 [facility] Comment on above: Order Comment: Speci men Type: BLOOD SPECIMENOrdering Facility: [facility] Address: [address] [place] [address] Performed By: #### 2 4323-8 ####[facility] LABCLIA [id number] [place] [address] Creatinine [Mass/Vol] 0.91 mg/dL Normal 0.73-1.[address] [facility] Comment on above: Order Comment: Speci men Type: BLOOD SPECIMENOrdering Facility: [facility] Address: [address] [place] [address] Performed By: #### 2 4323-8 ####[facility] LABCLIA [id number] [place] [address] Creatinine and Glomerular filtration rate.predicted panel (S/P/Bld) 84 mL/min/1.73m??? Normal >=60 [facility] Comment on above: Order Comment: Vicki tovar Type: BLOOD SPECIMENOrdering Facility: [facility] Address: [address] [place] [id number] Result Comment: Christelle mated Glomerular Filtration Rate (eGFR) is calculated using the 2020 CKD-EPI creatinine equation. This equation utilizes serum creatinine, sex, and age as parameters. The creatinine assay has traceable calibration to isotope dilution-mass spectrometry. Refer to KDIGO guidelines for clinical interpretation. In patients with unstable renal function, e.g. those with acute kidney injury, the eGFR may not accurately reflect actual GFR. Performed By: #### 2 4323-8 ####[facility] LABCLIA [id number] [place] [address] Glucose [Mass/Vol] 126 mg/dL High 74-[address] [facility] Comment on above: Order Comment: Vicki tovar Type: BLOOD SPECIMENOrdering Facility: [facility] Address: [place] [address] Result Comment: The [place] [employer] (ADA) provides guidance for cutoff values for fasting glucose and random glucose. The ADA defines fasting as no caloric intake for at least 8 hours. Fasting plasma glucose results between 100 to 125 mg/dL indicate increased risk for diabetes (prediabetes).Fasting plasma glucose results greater than or equal to 126 mg/dL meet the criteria for diagnosis of diabetes. In the absence of unequivocal hyperglycemia, results should be confirmed by repeat testing. In a patient with classic symptoms of hyperglycemia or hyperglycemic crisis, random plasma glucose results greater than or equal to 200 mg/dL meet the criteria for diagnosis of diabetes.Reference: Standards of Medical Care in Diabetes 2016, [place] [employer]. Diabetes Care. 2016.39(Suppl 1). Performed By: #### 2 4323-8 ####[facility] LABCLIA [id number] [place] [address] Potassium [Moles/Vol] 4.6 mmol/L Normal 3.7-5.[address] [facility] Comment on above: Order Comment: Vicki tovar Type: BLOOD SPECIMENOrdering Facility: [facility] Address: [address] [place] [id number] Performed By: #### 2 4323-8 ####[facility] LABCLIA [id number] [place] [address] Protein [Mass/Vol] 6.2 g/dL Low 6.3-8.[address] [facility] Comment on above: Order Comment: Speci men Type: BLOOD SPECIMENOrdering Facility: [facility] Address: [address] [place] [address] Performed By: #### 2 4323-8 ####[facility] LABCLIA [id number] [place] [address] Sodium [Moles/Vol] 138 mmol/L Normal 136-[address] [facility] Comment on above: Order Comment: Speci men Type: BLOOD SPECIMENOrdering Facility: [facility] Address: [address] [place] [address] Performed By: #### 2 4323-8 ####[facility] LABCLIA [id number] [place] [address] Urea nitrogen [Mass/Vol] 16 mg/dL Normal 9-24 [facility] Comment on above: Order Comment: Speci men Type: BLOOD SPECIMENOrdering Facility: [facility] Address: [address] [place] [address] Performed By: #### 2 4323-8 ####[facility] LABCLIA [id number] [place] [address] Physician Referralon 023 Physician Referral [id number]#[id number]:12 7 Normal [facility] Ambulatory Visit Summaryon 1 Ambulatory Visit Summary KARIN MART Pradeep :1940 Visit Date:02/23/2023 Ambulatory Visit Instructions Your Diagnosis Abscess BMI 23.0-23.9, adult Your Care Team Attending Physician - Chayito Duarte MD Primary Care Physician - Chayito Duarte MD This Is Your Medications List [facility] Prescription abiraterone (abiraterone 250 mg oral tablet) calcium-vitamin D (Calcium 600 D Tab) denosumab naproxen (Aleve) predniSONE (predniSONE 10 mg Tab) tamsulosin (tamsulosin 0.4 mg Cap) Procedures Performed Transrectal needle biopsy of prostate (12/02/2021), Transrectal biopsy of prostate using ultrasound (US) guidance (08/22/2018), Transrectal biopsy of prostate using ultrasound (US) guidance (04/09/2009), Transrectal biopsy of prostate using ultrasound (US) guidance (02/18/2009), Angioplasty, Cataract extraction and insertion of intraocular lens, Colonoscopy, Tonsillectomy, Vasectomy. Discharge Vitals Temperature (Temporal Artery) 37.2 ?C Heart Rate (Peripheral) 86 Respiratory Rate 16 Blood Pressure 120/76 Height 173 cm Height 68 in Weight 69.2 kg Weight 152.24 lb BMI 23.12 What to do next Scheduled Follow-Up Appointments Tuesday 10:15 AM EST With: RENZO MCGARRY, Isa Son Where: [facility] Invalid Interpretation Code [address] [place] [address]- \.br\ Tuesday 9:30 AM EDT \.br\ With:\.br\ Where: [facility] Family Medicine Office/Clini c Noteon 02-23-2023 Family Medicine Office/Clinic Note HPI Staff Karin is an 82 year old male presenting for follow up left wrist infection Acute: antibiotics are not helping, started back in November when he fell and part of it just never healed. Been through 2 courses of antibiotics and warm compresses with epsom salts. flu: will discuss with oncologist first questions/concerns: tomorrow he has a scheduled chemo treatment, says he's pretty good with everything History of Present Illness Patient is here for follow-up on what was thought to be an abscess of the left arm. Patient has this because he fell the skin folded back in the patient put the skin back in place after cleaning it. Use antibiotics multiple times with keeping it well clean and a lump grew from that area. Patient states the lump does not hurt but it is progressively getting worse. [facility] here with no improvement on multiple antibiotics. Review of Systems PHQ Score Initial Depression Screen Score: 0 Physical Exam Vitals & Measurements T: 37.2 ?C(Temporal Artery) HR: 86(Peripheral) RR: 16 BP: 120/76 SpO2: 98% HT: 68 in HT: 173 cm WT: 69.2 kg WT: 152.24 lb BMI: 23.12 General: alert, no acute distress ENMT: oral mucosa moist, Cardiovascular: normal peripheral perfusion Respiratory: respirations non labored Extremities: no deformity, no trauma Neurological: oriented x 4, LOC appropriate for age, CN II-XII intact, motor strength equal & normal bilaterally, speech normal Abdomen: Soft, Nontender, Non-distended, + BS Area about the size of 1-1/2 cm x 1/2 cm circular with what looks to be an ulcerated top but cystic in nature. Area of what feels to be fluctuance but no erythema. Assessment/Plan 1. Abscess (L02.91: Cutaneous abscess, unspecified) Unsure if it is an abcess at this time. Does have a feeling of fluctuance. Will send to derm as it has gotten bigger, but not using or hurting. Ordered: Body Mass Index (BMI) documented 3008F Current tobacco non-user 1036F Depression Screening Negative 3352F [facility] External Ambulatory Referral Influenza immunization status assessed 1030F Most recent diastolic blood pressure <80 mm Hg 3078F Patient screen for fall risk: no falls in last year or 1 fall with no injury in last year 1101F Systolic BP <130 mm Hg (Most Recent) 3074F 2. BMI 23.0-23.9, adult (Z68.23: Body mass index [BMI] 23.0-23.9, adult) BMI education in the portal Ordered: Body Mass Index (BMI) documented 3008F Current tobacco non-user 1036F Depression Screening Negative 3352F [facility] External Ambulatory Referral Influenza immunization status assessed 1030F Most recent diastolic blood pressure <80 mm Hg 3078F Patient screen for fall risk: no falls in last year or 1 fall with no injury in last year 1101F Systolic BP <130 mm Hg (Most Recent) 3074F Follow-up No qualifying data available Problem List/Past Medical History Ongoing Abscess BPH (benign prostatic hyperplasia) Elevated PSA Ex-smoker Gross hematuria Mixed hyperlipidemia Nocturia Prostate cancer Prostate cancer metastatic to bone Skin infection Urgency of urination Historical No qualifying data Procedure/Surgical History Transrectal needle biopsy of prostate (12/02/2021), Transrectal biopsy of prostate using ultrasound (US) guidance (08/22/2018), Transrectal biopsy of prostate using ultrasound (US) guidance (04/09/2009), Transrectal biopsy of prostate using ultrasound (US) guidance (02/18/2009), Angioplasty, Cataract extraction and insertion of intraocular lens, Colonoscopy, Tonsillectomy, Vasectomy. Medications abiraterone 250 mg oral tablet, 1000 mg= 4 tab(s), Oral, Daily Aleve, 200 mg, Oral, q12hr Calcium 600 D Tab, Oral, BID denosumab, See Instructions Misc Prescription, 0 predniSONE 10 mg Tab, Oral, Daily, Investigating tamsulosin 0.4 mg Cap, 0.4 mg= 1 cap(s), Oral, BID, 3 refills Allergies No Known Medication Allergies Social History Alcohol Current, Beer, 1-2 times per month, 1.00 drinks/episode maximum. Household alcohol concerns: No., 01/05/2023 Tobacco Former smoker, quit more than 30 days ago Tobacco Use:. Never Smokeless Tobacco Use:. Household tobacco concerns: No., 02/23/2023 Family History Family history is negative Immunizations Vaccine Date Status Comments influenza virus vaccine, inactivated - Not Given Postpone due to refusal SARS-CoV-2 (COVID-19) [id number] 04/27/2022 Recorded influenza virus vaccine, inactivated 03/15/2022 Recorded SARS-CoV-2 (COVID-19) mRNA BNT-162b2 vax 04/29/2021 Recorded influenza virus vaccine, inactivated 03/11/2021 Recorded SARS-CoV-2 (COVID-19) mRNA-1273 vaccine 07/22/2020 Recorded SARS-CoV-2 (COVID-19) mRNA-1273 vaccine 06/24/2020 Recorded SARS-CoV-2 (COVID-19) mRNA-1273 vaccine 2020 Recorded pt is fully vaccinated but does not have his dates with him influenza virus vaccine, inactivated 03/07/2020 Recorded influenza virus vaccine, inactivated 04/13/2019 Recorded influenza virus vaccine, (more content not included)... Normal [facility] Comment on above: Result Comment: Elec tronically Signed By: Felicia MCGARRY, Chayito Conklin.br\Date and Time Signed: 02/23/23 15:10 EDT CBC W Auto Differential pane l (Bld)on 02-16-2023 Anisocytosis Ql (Bld) Present [facility] Basophils (Bld) [#/Vol] 0.05 10*3/uL <0.11 k/uL [facility] Basophils/100 WBC (Bld) 1.8 % [facility] Dacrocytes LM Ql (Bld) Few [facility] Differential cell count method Nom (Bld) Manual [facility] Eosinophils (Bld) [#/Vol] 0.00 10*3/uL <0.46 k/uL [facility] Eosinophils/100 WBC (Bld) 0.0 % [facility] Erythrocyte distribution width (RBC) [Ratio] 15.6 % High 11.5 - 15.0 % [facility] Hematocrit (Bld) [Volume fraction] 29.4 % Low 39.0 - 51.0 % [facility] Hemoglobin (Bld) [Mass/Vol] 9.3 g/dL Low 13.0 - 17.0 g/dL [facility] Lymphocytes (Bld) [#/Vol] 0.63 10*3/uL Low 1.00 - 4.00 k/uL [facility] Lymphocytes/100 WBC (Bld) 23.6 % [facility] MCH (RBC) [Entitic mass] 28.3 pg 26.0 - 34.0 pg [facility] MCHC (RBC) [Mass/Vol] 31.6 g/dL 30.5 - 36.0 g/dL [facility] MCV (RBC) [Entitic vol] 89.4 fL 80.0 - 100.0 fL [facility] Bolckow % 0.9 % [facility] Monocytes (Bld) [#/Vol] 0.17 10*3/uL <0.87 k/uL [facility] Monocytes/100 WBC (Bld) 6.4 % [facility] Myelo % 4.5 % [facility] Neutrophils (Bld) [#/Vol] 1.65 10*3/uL 1.45 - 7.50 k/uL [facility] Neutrophils/100 WBC (Bld) 61.9 % [facility] Nucleated RBC (Bld) [#/Vol] 0.22 10*3/uL High <0.01 k/uL [facility] Nucleated RBC/100 WBC (Bld) [Ratio] 8.2 /100 WBC [facility] Ovalocytes LM Ql (Bld) Few [facility] Platelet mean volume (Bld) [Entitic vol] 9.4 fL 9.0 - 12.7 fL [facility] Platelets (Bld) [#/Vol] 81 10*3/uL Low 150 - 400 k/uL [facility] Platelets Estimate (Bld) [#/Vol] Decreased [facility] Polychromasia LM Ql (Bld) Slight [facility] Promylelo % 0.9 % [facility] RBC (Bld) [#/Vol] 3.29 10*6/uL Low 4.20 - 6.0 0 m/uL [facility] RBC Fragments Few Abnormal None Seen [facility] Red Cell Morph Reviewed: see result s of individual morphologies [facility] WBC (Bld) [#/Vol] 2.66 10*3/uL Low 3.70 - 11. 00 k/uL [facility] WBC Left Shift Ql (Bld) Present [facility] CNPNon 02-16-2023 CNPN Normal [facility] Consultation Noteon 02-17-20 23 Consultation Note [id number]#[id number]:127 Normal [facility] CBC W Auto Differential pane l (Bld)on 02-15-2023 Anisocytosis Ql (Bld) Present Normal [facility] Comment on above: Order Comment: Speci men Type: BLOOD SPECIMENOrdering Facility: [facility] Address: [address] [place], [place] [address] Performed By: #### 5 7021-8 ####[facility] LABCLIA [id number] [id number] [place] [address] LABCLIA [id number] [place] [address] Basophils (Bld) [#/Vol] 0.05 10*3/uL Normal <0.11 [facility] Comment on above: Order Comment: Speci men Type: BLOOD SPECIMENOrdering Facility: [facility] Address: [address] [place] [address] Performed By: #### 5 7021-8 ####[facility] LABCLIA [id number] [place] [id number] [facility] LABCLIA [id number] [place] [address] Basophils/100 WBC (Bld) 1.8 % Normal [facility] Comment on above: Order Comment: Speci men Type: BLOOD SPECIMENOrdering Facility: [facility] Address: [address] [place] [address] Performed By: #### 5 7021-8 ####[facility] LABCLIA [id number] [address] LABCLIA [id number] [place] [address] Dacrocytes LM Ql (Bld) Few Normal [facility] Comment on above: Order Comment: Speci men Type: BLOOD SPECIMENOrdering Facility: [facility] Address: [address] [place] [address] Performed By: #### 5 7021-8 ####[facility] LABCLIA [id number] [place] [id number] [facility] LABCLIA [id number] [place] [address] Differential cell count method Nom (Bld) Manual Normal [facility] Comment on above: Order Comment: Speci men Type: BLOOD SPECIMENOrdering Facility: [facility] Address: [address] [place] [address] Performed By: #### 5 7021-8 ####[facility] LABCLIA [id number] [place] [id number] [facility] LABCLIA [id number] [place] [address] Eosinophils (Bld) [#/Vol] 0.00 10*3/uL Normal <0.46 [facility] Comment on above: Order Comment: Speci men Type: BLOOD SPECIMENOrdering Facility: [facility] Address: [address] [place] [address] Performed By: #### 5 7021-8 ####[facility] LABCLIA [id number] [address] LABCLIA [id number] [place] [id number] Eosinophils/100 WBC (Bld) 0.0 % Normal [facility] Comment on above: Order Comment: Speci men Type: BLOOD SPECIMENOrdering Facility: [facility] Address: [address] [place] [address] Performed By: #### 5 7021-8 ####[facility] LABCLIA [id number] [address] LABCLIA [id number] [place] [address] Erythrocyte distribution width (RBC) [Ratio] 15.6 % High 11.5-15.0 [facility] Comment on above: Order Comment: Speci men Type: BLOOD SPECIMENOrdering Facility: [facility] Address: [address] [place] [address] Performed By: #### 5 7021-8 ####[facility] LABCLIA [id number] [address] LABCLIA [id number] [place] [id number] Hematocrit (Bld) [Volume fraction] 29.4 % Low 39.0-51.0 [facility] Comment on above: Order Comment: Speci men Type: BLOOD SPECIMENOrdering Facility: [facility] Address: [address] [place] [address] Performed By: #### 5 7021-8 ####[facility] LABCLIA [id number] [address] LABCLIA [id number] [place] [address] Hemoglobin (Bld) [Mass/Vol] 9.3 g/dL Low 13.0-17.0 [facility] Comment on above: Order Comment: Speci men Type: BLOOD SPECIMENOrdering Facility: [facility] Address: [address] [place] [address] Performed By: #### 5 7021-8 ####[facility] LABCLIA [id number] [address] LABCLIA [id number] [place] [address] Lymphocytes (Bld) [#/Vol] 0.63 10*3/uL Low 1.00-4.00 [facility] Comment on above: Order Comment: Speci men Type: BLOOD SPECIMENOrdering Facility: [facility] Address: [address] [place] [address] Performed By: #### 5 7021-8 ####[facility] LABCLIA [id number] [address] LABCLIA [id number] [place] [address] Lymphocytes/100 WBC (Bld) 23.6 % Normal [facility] Comment on above: Order Comment: Speci men Type: BLOOD SPECIMENOrdering Facility: [facility] Address: [address] [place] [address] Performed By: #### 5 7021-8 ####[facility] LABCLIA [id number] [address] LABCLIA [id number] [place] [address] MCH (RBC) [Entitic mass] 28.3 pg Normal 26.0-34.0 [facility] Comment on above: Order Comment: Speci men Type: BLOOD SPECIMENOrdering Facility: [facility] Address: [address] [place] [address] Performed By: #### 5 7021-8 ####[facility] LABCLIA [id number] [address] LABCLIA [id number] [place] [address] MCHC (RBC) [Mass/Vol] 31.6 g/dL Normal 30.5-36.[address] [facility] Comment on above: Order Comment: Speci men Type: BLOOD SPECIMENOrdering Facility: [facility] Address: [address] [place] [address] Performed By: #### 5 7021-8 ####[facility] LABCLIA [id number] [address] LABCLIA [id number] [place] [address] MCV (RBC) [Entitic vol] 89.4 fL Normal 80.0-100.0 [facility] Comment on above: Order Comment: Speci men Type: BLOOD SPECIMENOrdering Facility: [facility] Address: [address] [place] [address] Performed By: #### 5 7021-8 ####[facility] LABCLIA [id number] [address] LABCLIA [id number] [place] [address] Metamyelocytes/100 WBC (Bld) 0.9 % Normal [facility] Comment on above: Order Comment: Speci men Type: BLOOD SPECIMENOrdering Facility: [facility] Address: [address] [place] [address] Performed By: #### 5 7021-8 ####[facility] LABCLIA [id number] [address] LABCLIA [id number] [place] [address] Monocytes (Bld) [#/Vol] 0.17 10*3/uL Normal <0.87 [facility] Comment on above: Order Comment: Speci men Type: BLOOD SPECIMENOrdering Facility: [facility] Address: [address] [place] [address] Performed By: #### 5 7021-8 ####[facility] LABCLIA [id number] [address] LABCLIA [id number] [place] [address] Monocytes/100 WBC (Bld) 6.4 % Normal [facility] Comment on above: Order Comment: Speci men Type: BLOOD SPECIMENOrdering Facility: [facility] Address: [address] [place] [address] Performed By: #### 5 7021-8 ####[facility] LABCLIA [id number] [address] LABCLIA [id number] [place] [address] MYELO% 4.5 % Normal [facility] Comment on above: Order Comment: Speci men Type: BLOOD SPECIMENOrdering Facility: [facility] Address: [address] [place] [address] Performed By: #### 5 7021-8 ####[facility] LABCLIA [id number] [address] LABCLIA [id number] [place] [address] Neutrophils (Bld) [#/Vol] 1.65 10*3/uL Normal 1.45-7.50 [facility] Comment on above: Order Comment: Speci men Type: BLOOD SPECIMENOrdering Facility: [facility] Address: [address] [place] [address] Performed By: #### 5 7021-8 ####[facility] LABCLIA [id number] [address] LABCLIA [id number] [place] [address] Neutrophils/100 WBC (Bld) 61.9 % Normal [facility] Comment on above: Order Comment: Speci men Type: BLOOD SPECIMENOrdering Facility: [facility] Address: [address] [place] [address] Performed By: #### 5 7021-8 ####[facility] LABCLIA [id number] [address] LABCLIA [id number] [place] [address] Nucleated RBC (Bld) [#/Vol] 0.22 10*3/uL High <0.01 [facility] Comment on above: Order Comment: Speci men Type: BLOOD SPECIMENOrdering Facility: [facility] Address: [address] [place] [address] Performed By: #### 5 7021-8 ####[facility] LABCLIA [id number] [address] LABCLIA [id number] [place] [address] Nucleated RBC/100 WBC (Bld) [Ratio] 8.2 /100 WBC Normal [facility] Comment on above: Order Comment: Speci men Type: BLOOD SPECIMENOrdering Facility: [facility] Address: [address] [place] [address] Performed By: #### 5 7021-8 ####[facility] LABCLIA [id number] LABCLIA [id number] [place] [address] Ovalocytes LM Ql (Bld) Few Normal [facility] Comment on above: Order Comment: Speci men Type: BLOOD SPECIMENOrdering Facility: [facility] Address: [address] [place] [address] Performed By: #### 5 7021-8 ####[facility] LABCLIA [id number] [address] LABCLIA [id number] [place] [address] Platelet mean volume (Bld) [Entitic vol] 9.4 fL Normal 9.0-12.7 [facility] Comment on above: Order Comment: Speci men Type: BLOOD SPECIMENOrdering Facility: [facility] Address: [address] [place] [address] Performed By: #### 5 7021-8 ####[facility] LABCLIA [id number] [address] LABCLIA [id number] [place] [address] Platelets (Bld) [#/Vol] 81 10*3/uL Low 150-400 [facility] Comment on above: Order Comment: Speci men Type: BLOOD SPECIMENOrdering Facility: [facility] Address: [address] [place] [address] Result Comment: No c lot detected. Performed By: #### 5 7021-8 ####[facility] LABCLIA [id number] [address] LABCLIA [id number] [place] [address] Platelets Estimate (Bld) [#/Vol] Decreased Normal [facility] Comment on above: Order Comment: Speci men Type: BLOOD SPECIMENOrdering Facility: [facility] Address: [address] Performed By: #### 5 7021-8 ####[facility] LABCLIA [id number] [address] LABCLIA [id number] [place] [address] Polychromasia LM Ql (Bld) Slight Normal [facility] Comment on above: Order Comment: Speci men Type: BLOOD SPECIMENOrdering Facility: [facility] Address: [address] [place], [place] [address] Performed By: #### 5 7021-8 ####[facility] LABCLIA [id number] [address] LABCLIA [id number] [place] [address] PROMYL% 0.9 % Normal [facility] Comment on above: Order Comment: Speci men Type: BLOOD SPECIMENOrdering Facility: [facility] Address: [address] [place], [place] [address] Performed By: #### 5 7021-8 ####[facility] LABCLIA [id number] [address] LABCLIA [id number] [place] [address] RBC (Bld) [#/Vol] 3.29 10*6/uL Low 4.20-6.00 [facility] Comment on above: Order Comment: Speci men Type: BLOOD SPECIMENOrdering Facility: [facility] Address: [address] [place], [place] [address] Performed By: #### 5 7021-8 ####[facility] LABCLIA [id number] [address] LABCLIA [id number] [place] [address] RBC FRAGMENTS Few Abnormal None Seen [facility] Comment on above: Order Comment: Speci men Type: BLOOD SPECIMENOrdering Facility: [facility] Address: [address] [place] [address] Performed By: #### 5 7021-8 ####[facility] LABCLIA [id number] [address] LABCLIA [id number] [place] [address] RED CELL MORPH Reviewed: see result s of individual morphologies Normal [facility] Comment on above: Order Comment: Speci men Type: BLOOD SPECIMENOrdering Facility: [facility] Address: [address] [place] [address] Performed By: #### 5 7021-8 ####[facility] LABCLIA [id number] [address] LABCLIA [id number] [place] [address] WBC (Bld) [#/Vol] 2.66 10*3/uL Low 3.70-11.00 [facility] Comment on above: Order Comment: Speci men Type: BLOOD SPECIMENOrdering Facility: [facility] Address: [address] [place], [place] [address] Performed By: #### 5 7021-8 ####[facility] LABCLIA [id number] [address] LABCLIA [id number] [place] [address] WBC Left Shift Ql (Bld) Present Normal [facility] Comment on above: Order Comment: Speci men Type: BLOOD SPECIMENOrdering Facility: [facility] Address: [address] [place], [place] [address] Performed By: #### 5 7021-8 ####[facility] LABCLIA [id number] [facility] [id number] [address] [facility] LABCLIA [id number] [place] [address] CNOVSPon 02-15-2023 CNOVSP Normal [facility] metabolic 2000 panelon 02-15-2023 Albumin [Mass/Vol] 3.8 g/dL Low 3.9-4.[address] [facility] Comment on above: Order Comment: Speci men Type: BLOOD SPECIMENOrdering Facility: [facility] Address: [address] [address] Performed By: #### 2 4323-8 ####[facility] LABCLIA [id number] [place] [address] ALP [Catalytic activity/Vol] 712 U/L High 38-113 [facility] Comment on above: Order Comment: Speci men Type: BLOOD SPECIMENOrdering Facility: [facility] Address: [address] [address] Performed By: #### 2 4323-8 ####[facility] LABCLIA [id number] [place] [address] ALT [Catalytic activity/Vol] 15 U/L Normal 10-54 [facility] Comment on above: Order Comment: Speci men Type: BLOOD SPECIMENOrdering Facility: [facility] Address: [address] [address] Performed By: #### 2 4323-8 ####[facility] LABCLIA [id number] [place] [address] Anion gap [Moles/Vol] 7 mmol/L Low 9-[address] [facility] Comment on above: Order Comment: Speci men Type: BLOOD SPECIMENOrdering Facility: [facility] Address: [address] [address] Performed By: #### 2 4323-8 ####[facility] LABCLIA [id number] [place] [address] AST [Catalytic activity/Vol] 32 U/L Normal 14-40 [facility] Comment on above: Order Comment: Speci men Type: BLOOD SPECIMENOrdering Facility: [facility] Address: [address] [place] [address] Performed By: #### 2 4323-8 ####[facility] LABCLIA [id number] [place] [address] Bilirubin [Mass/Vol] 0.3 mg/dL Normal 0.2-1.3 [facility] Comment on above: Order Comment: Speci men Type: BLOOD SPECIMENOrdering Facility: [facility] Address: [address] [place] [address] Performed By: #### 2 4323-8 ####[facility] LABCLIA [id number] [place] [address] Calcium [Mass/Vol] 8.0 mg/dL Low 8.5-10.[address] [facility] Comment on above: Order Comment: Speci men Type: BLOOD SPECIMENOrdering Facility: [facility] Address: [address] [place] [address] Performed By: #### 2 4323-8 ####[facility] LABCLIA [id number] [place] [address] Chloride [Moles/Vol] 109 mmol/L High 97-105 [facility] Comment on above: Order Comment: Speci men Type: BLOOD SPECIMENOrdering Facility: [facility] Address: [address] [place] [address] Performed By: #### 2 4323-8 ####[facility] LABCLIA [id number] [place] [address] CO2 [Moles/Vol] 26 mmol/L Normal 22-30 [facility] Comment on above: Order Comment: Speci men Type: BLOOD SPECIMENOrdering Facility: [facility] Address: [address] [place] [address] Performed By: #### 2 4323-8 ####[facility] LABCLIA [id number] [place] [address] Creatinine [Mass/Vol] 0.87 mg/dL Normal 0.73-1.[address] [facility] Comment on above: Order Comment: Speci men Type: BLOOD SPECIMENOrdering Facility: [facility] Address: [address] [address] Performed By: #### 2 4323-8 ####[facility] LABCLIA [id number] [place] [address] Creatinine and Glomerular filtration rate.predicted panel (S/P/Bld) 86 mL/min/1.73m??? Normal >=60 [facility] Comment on above: Order Comment: Speci men Type: BLOOD SPECIMENOrdering Facility: [facility] Address: [address] [address] Result Comment: Christelle mated Glomerular Filtration Rate (eGFR) is calculated using the 2020 CKD-EPI creatinine equation. This equation utilizes serum creatinine, sex, and age as parameters. The creatinine assay has traceable calibration to isotope dilution-mass spectrometry. Refer to KDIGO guidelines for clinical interpretation. In patients with unstable renal function, e.g. those with acute kidney injury, the eGFR may not accurately reflect actual GFR. Performed By: #### 2 4323-8 ####[facility] LABIA [id number] [place] [address] Glucose [Mass/Vol] 86 mg/dL Normal 74-[address] [facility] Comment on above: Order Comment: Speci men Type: BLOOD SPECIMENOrdering Facility: [facility] Address: [address] [address] Result Comment: The [place] Diabetes Association (ADA) provides guidance for cutoff values for fasting glucose and random glucose. The ADA defines fasting as no caloric intake for at least 8 hours. Fasting plasma glucose results between 100 to 125 mg/dL indicate increased risk for diabetes (prediabetes).Fasting plasma glucose results greater than or equal to 126 mg/dL meet the criteria for diagnosis of diabetes. In the absence of unequivocal hyperglycemia, results should be confirmed by repeat testing. In a patient with classic symptoms of hyperglycemia or hyperglycemic crisis, random plasma glucose results greater than or equal to 200 mg/dL meet the criteria for diagnosis of diabetes.Reference: Standards of Medical Care in Diabetes 2016, [place] [employer] Association. Diabetes Care. 2016.39(Suppl 1). Performed By: #### 2 4323-8 ####[facility] LABCLIA [id number] [place] [address] Potassium [Moles/Vol] 4.5 mmol/L Normal 3.7-5.[address] [facility] Comment on above: Order Comment: Speci men Type: BLOOD SPECIMENOrdering Facility: [facility] Address: [address] [place] [address] Performed By: #### 2 4323-8 ####[facility] LABCLIA [id number] [place] [address] Protein [Mass/Vol] 5.8 g/dL Low 6.3-8.[address] [facility] Comment on above: Order Comment: Speci men Type: BLOOD SPECIMENOrdering Facility: [facility] Address: [address] [place] [address] Performed By: #### 2 4323-8 ####[facility] LABCLIA [id number] [place] [address] Sodium [Moles/Vol] 142 mmol/L Normal 136-[address] [facility] Comment on above: Order Comment: Speci men Type: BLOOD SPECIMENOrdering Facility: [facility] Address: [address] [address] Performed By: #### 2 4323-8 ####[facility] LABCLIA [id number] [place] [address] Urea nitrogen [Mass/Vol] 15 mg/dL Normal 9-24 [facility] Comment on above: Order Comment: Speci men Type: BLOOD SPECIMENOrdering Facility: [facility] Address: [address] [place], [place] [address] Performed By: #### 2 4323-8 ####[facility] LABCLIA [id number] [place] [address] Albumin [Mass/Vol] 3.8 g/dL Low 3.9 - 4.9 g/dL [facility] ALP [Catalytic activity/Vol] 712 U/L High 38 - 113 U/L [facility] ALT [Catalytic activity/Vol] 15 U/L 10 - 54 U/L [facility] Anion gap [Moles/Vol] 7 mmol/L Low 9 - 18 mmol/L [facility] AST [Catalytic activity/Vol] 32 U/L 14 - 40 U/L [facility] Bilirubin [Mass/Vol] 0.3 mg/dL 0.2 - 1 .3 mg/dL [facility] Calcium [Mass/Vol] 8.0 mg/dL Low 8.5 - 10. 2 mg/dL [facility] Chloride [Moles/Vol] 109 mmol/L High 97 - 10 5 mmol/L [facility] CO2 [Moles/Vol] 26 mmol/L 22 - 30 mmol/L [facility] Creatinine [Mass/Vol] 0.87 mg/dL 0.73 - 1.22 mg/dL [facility] Estimated Glomerular Filtration Rate 86 mL/min/1.73m >=60 mL/min/1.73m [facility] Glucose [Mass/Vol] 86 mg/dL 74 - 99 mg/dL [facility] Potassium [Moles/Vol] 4.5 mmol/L 3.7 - 5.1 mmol/L [facility] Protein [Mass/Vol] 5.8 g/dL Low 6.3 - 8.0 g/dL [facility] Sodium [Moles/Vol] 142 mmol/L 136 - 144 mmol/L [facility] Urea nitrogen [Mass/Vol] 15 mg/dL 9 - 24 mg/dL [facility] PSA SerPl-mCncon 02-15-2023 Prostate specific Ag [Mass/Vol] 857.40 ng/mL High <2.60 [facility] Comment on above: Order Comment: Speci men Type: BLOOD SPECIMENOrdering Facility: [facility] Address: [address] [place] [address] Result Comment: Tota l PSA test methodology used is the Electrochemiluminescence Immunoassay by [employer]. Total PSA values by differing methodologies cannot be interchanged.For an individual patient, the significance of a PSA level should be interpreted in a broad clinical context, including age, race, family history, digital rectal exam, prostate size, results of prior testing (prostate biopsy, free PSA, PCA3), and use of 5-alpha reductase inhibitors. Considering the high incidence of asymptomatic cancer in the general population that may not pose an ultimate risk to a patient, the decision to recommend urological evaluation or prostate biopsy should be individualized after consideration of all these factors.REFERENCE:Ayla Arriaga M.D., M.P.H., Tl Betancourt M.D., Ph.D., Buster Church M.D., Lyubov Christiansen, M.P.H., Lawanda Ross, Sc.D. Effect of Verification Bias on Screening for Prostate Cancer by Measurement of Prostatic Specific Antigen. N Engl J Med 2003,349:335-42. Performed By: #### 2 857-1 ####[facility] LABCLIA [id number] [address] [facility] PSA/PROSTSPECAG DIAGon 02-15 Prostate specific Ag [Mass/Vol] 857.40 ng/mL High <2.60 ng/mL [facility] CNPNon 02-14-2023 CNPN Normal [facility] Consultation Noteon 02-15-20 23 Consultation Note [id number]:127 Normal [facility] PSA/PROSTSPECAG DIAGon 02-11 Prostate specific Ag [Mass/Vol] 843.80 ng/mL High <2.60 ng/mL [facility] Basic metabolic 2000 panelon 02-10-2023 Anion gap [Moles/Vol] 9 mmol/L Normal 9-[address] [facility] Comment on above: Order Comment: Speci men Type: BLOOD SPECIMENOrdering Facility: [facility] Address: [address] [place] [address] Performed By: #### 2 4321-2 ####[facility] LABCLIA [id number] [place] [address] Calcium [Mass/Vol] 8.4 mg/dL Low 8.5-10.[address] [facility] Comment on above: Order Comment: Speci men Type: BLOOD SPECIMENOrdering Facility: [facility] Address: [address] [place] [address] Performed By: #### 2 4321-2 ####[facility] LABCLIA [id number] [place] [address] Chloride [Moles/Vol] 110 mmol/L High 97-105 [facility] Comment on above: Order Comment: Speci men Type: BLOOD SPECIMENOrdering Facility: [facility] Address: [address] [place] [address] Performed By: #### 2 4321-2 ####[facility] LABCLIA [id number] [place] [address] CO2 [Moles/Vol] 24 mmol/L Normal 22-30 [facility] Comment on above: Order Comment: Speci men Type: BLOOD SPECIMENOrdering Facility: [facility] Address: [address] [place] [address] Performed By: #### 2 4321-2 ####[facility] LABCLIA [id number] [place] [address] Creatinine [Mass/Vol] 0.93 mg/dL Normal 0.73-1.[address] [facility] Comment on above: Order Comment: Speci men Type: BLOOD SPECIMENOrdering Facility: [facility] Address: [address] [place] [address] Performed By: #### 2 4321-2 ####[facility] LABCLIA [id number] [place] [address] Creatinine and Glomerular filtration rate.predicted panel (S/P/Bld) 81 mL/min/1.73m??? Normal >=60 [facility] Comment on above: Order Comment: Vicki tovar Type: BLOOD SPECIMENOrdering Facility: [facility] Address: [address] [phone] Result Comment: Christelle mated Glomerular Filtration Rate (eGFR) is calculated using the 2020 CKD-EPI creatinine equation. This equation utilizes serum creatinine, sex, and age as parameters. The creatinine assay has traceable calibration to isotope dilution-mass spectrometry. Refer to KDIGO guidelines for clinical interpretation. In patients with unstable renal function, e.g. those with acute kidney injury, the eGFR may not accurately reflect actual GFR. Performed By: #### 2 4321-2 ####[facility] LABCLIA [id number] [place] [address] Glucose [Mass/Vol] 115 mg/dL High 74-[address] [facility] Comment on above: Order Comment: Vicki tovar Type: BLOOD SPECIMENOrdering Facility: [facility] Address: [place] [address] Result Comment: The [place] Diabetes Association (ADA) provides guidance for cutoff values for fasting glucose and random glucose. The ADA defines fasting as no caloric intake for at least 8 hours. Fasting plasma glucose results between 100 to 125 mg/dL indicate increased risk for diabetes (prediabetes).Fasting plasma glucose results greater than or equal to 126 mg/dL meet the criteria for diagnosis of diabetes. In the absence of unequivocal hyperglycemia, results should be confirmed by repeat testing. In a patient with classic symptoms of hyperglycemia or hyperglycemic crisis, random plasma glucose results greater than or equal to 200 mg/dL meet the criteria for diagnosis of diabetes.Reference: Standards of Medical Care in Diabetes 2016, [place] [employer]. Diabetes Care. 2016.39(Suppl 1). Performed By: #### 2 4321-2 ####[facility] LABCLIA [id number] [place] [address] Potassium [Moles/Vol] 4.1 mmol/L Normal 3.7-5.[address] [facility] Comment on above: Order Comment: Vicki tovar Type: BLOOD SPECIMENOrdering Facility: [facility] Address: [address] [address] Performed By: #### 2 4321-2 ####[facility] LABCLIA [id number] [place] [address] Sodium [Moles/Vol] 143 mmol/L Normal 136-[address] [facility] Comment on above: Order Comment: Speci men Type: BLOOD SPECIMENOrdering Facility: [facility] Address: [address] [address] Performed By: #### 2 4321-2 ####[facility] LABCLIA [id number] [place] [address] Urea nitrogen [Mass/Vol] 16 mg/dL Normal 9-24 [facility] Comment on above: Order Comment: Speci men Type: BLOOD SPECIMENOrdering Facility: [facility] Address: [address] [address] Performed By: #### 2 4321-2 ####[facility] LABCLIA [id number] [place] [address] Anion gap [Moles/Vol] 9 mmol/L 9 - 18 mmol/L [facility] Calcium [Mass/Vol] 8.4 mg/dL Low 8.5 - 10. 2 mg/dL [facility] Chloride [Moles/Vol] 110 mmol/L High 97 - 10 5 mmol/L [facility] CO2 [Moles/Vol] 24 mmol/L 22 - 30 mmol/L [facility] Creatinine [Mass/Vol] 0.93 mg/dL 0.73 - 1.22 mg/dL [facility] Estimated Glomerular Filtration Rate 81 mL/min/1.73m >=60 mL/min/1.73m [facility] Glucose [Mass/Vol] 115 mg/dL High 74 - 99 mg/dL [facility] Potassium [Moles/Vol] 4.1 mmol/L 3.7 - 5.1 mmol/L [facility] Sodium [Moles/Vol] 143 mmol/L 136 - 144 mmol/L [facility] Urea nitrogen [Mass/Vol] 16 mg/dL 9 - 24 mg/dL [facility] CBC W Auto Differential pane l (Bld)on 02-10-2023 Anisocytosis Ql (Bld) Present Normal [facility] Comment on above: Order Comment: Speci men Type: BLOOD SPECIMENOrdering Facility: [facility] Address: [address] [place] [address] Performed By: #### 5 7021-8 ####[facility] LABCLIA [id number] [address] LABCLIA [id number] [place] [address] [place] Basophils (Bld) [#/Vol] 0.03 10*3/uL Normal <0.11 [facility] Comment on above: Order Comment: Speci men Type: BLOOD SPECIMENOrdering Facility: [facility] Address: [address] [place] [address] Performed By: #### 5 7021-8 ####[facility] LABCLIA [id number] [address] LABCLIA [id number] [place] [address] [place] Basophils/100 WBC (Bld) 1.0 % Normal [facility] Comment on above: Order Comment: Speci men Type: BLOOD SPECIMENOrdering Facility: [facility] Address: [address] [place] [address] Performed By: #### 5 7021-8 ####[facility] LABCLIA [id number] [address] LABCLIA [id number] [place] [address] [place] Dacrocytes LM Ql (Bld) Few Normal [facility] Comment on above: Order Comment: Speci men Type: BLOOD SPECIMENOrdering Facility: [facility] Address: [address] [place] [address] Performed By: #### 5 7021-8 ####[facility] LABCLIA [id number] [place] [id number] LABCLIA [id number] [place] [address] [place] Differential cell count method Nom (Bld) Manual Normal [facility] Comment on above: Order Comment: Speci men Type: BLOOD SPECIMENOrdering Facility: [facility] Address: [address] [place] [address] Performed By: #### 5 7021-8 ####[facility] LABCLIA [id number] [address] LABCLIA [id number] [place] [address] [place] Eosinophils (Bld) [#/Vol] 0.06 10*3/uL Normal <0.46 [facility] Comment on above: Order Comment: Speci men Type: BLOOD SPECIMENOrdering Facility: [facility] Address: [address] [place] [address] Performed By: #### 5 7021-8 ####[facility] LABCLIA [id number] [address] LABCLIA [id number] [place] [address] [place] Eosinophils/100 WBC (Bld) 2.0 % Normal [facility] Comment on above: Order Comment: Speci men Type: BLOOD SPECIMENOrdering Facility: [facility] Address: [address] [place], [place] [address] Performed By: #### 5 7021-8 ####[facility] LABCLIA [id number] [address] LABCLIA [id number] [place] [address] [place] Erythrocyte distribution width (RBC) [Ratio] 16.1 % High 11.5-15.0 [facility] Comment on above: Order Comment: Speci men Type: BLOOD SPECIMENOrdering Facility: [facility] Address: [address] [place] [address] Performed By: #### 5 7021-8 ####[facility] LABCLIA [id number] [address] LABCLIA [id number] [place] [address] [place] Hematocrit (Bld) [Volume fraction] 22.8 % Low 39.0-51.0 [facility] Comment on above: Order Comment: Speci men Type: BLOOD SPECIMENOrdering Facility: [facility] Address: [address] [place] [address] Performed By: #### 5 7021-8 ####[facility] LABCLIA [id number] [address] LABCLIA [id number] [place] [address] [place] Hemoglobin (Bld) [Mass/Vol] 7.0 g/dL Low 13.0-17.0 [facility] Comment on above: Order Comment: Speci men Type: BLOOD SPECIMENOrdering Facility: [facility] Address: [address] [place] [address] Performed By: #### 5 7021-8 ####[facility] LABCLIA [id number] [address] LABCLIA [id number] [place] [address] [place] Lymphocytes (Bld) [#/Vol] 0.78 10*3/uL Low 1.00-4.00 [facility] Comment on above: Order Comment: Speci men Type: BLOOD SPECIMENOrdering Facility: [facility] Address: [address] [place] [address] Performed By: #### 5 7021-8 ####[facility] LABCLIA [id number] [place] [id number] LABCLIA [id number] [place] [address] [place] Lymphocytes/100 WBC (Bld) 24.8 % Normal [facility] Comment on above: Order Comment: Speci men Type: BLOOD SPECIMENOrdering Facility: [facility] Address: [address] [place] [address] Performed By: #### 5 7021-8 ####[facility] LABCLIA [id number] [address] LABCLIA [id number] [place] [address] [place] MCH (RBC) [Entitic mass] 28.1 pg Normal 26.0-34.0 [facility] Comment on above: Order Comment: Speci men Type: BLOOD SPECIMENOrdering Facility: [facility] Address: [address] [place] [address] Performed By: #### 5 7021-8 ####[facility] LABCLIA [id number] [address] LABCLIA [id number] [place] [address] [place] MCHC (RBC) [Mass/Vol] 30.7 g/dL Normal 30.5-36.[address] [facility] Comment on above: Order Comment: Speci men Type: BLOOD SPECIMENOrdering Facility: [facility] Address: [address] [place], [place] [address] Performed By: #### 5 7021-8 ####[facility] LABCLIA [id number] [address] LABCLIA [id number] [place] [address] [place] MCV (RBC) [Entitic vol] 91.6 fL Normal 80.0-100.0 [facility] Comment on above: Order Comment: Speci men Type: BLOOD SPECIMENOrdering Facility: [facility] Address: [address] [place] [address] Performed By: #### 5 7021-8 ####[facility] LABCLIA [id number] [address] LABCLIA [id number] [place] [address] [place] Metamyelocytes/100 WBC (Bld) 2.0 % Normal [facility] Comment on above: Order Comment: Speci men Type: BLOOD SPECIMENOrdering Facility: [facility] Address: [address] [place] [address] Performed By: #### 5 7021-8 ####[facility] LABCLIA [id number] [address] LABCLIA [id number] [place] [address] [place] Monocytes (Bld) [#/Vol] 0.25 10*3/uL Normal <0.87 [facility] Comment on above: Order Comment: Speci men Type: BLOOD SPECIMENOrdering Facility: [facility] Address: [address] [place] [address] Performed By: #### 5 7021-8 ####[facility] LABCLIA [id number] [address] LABCLIA [id number] [place] [address] [place] Monocytes/100 WBC (Bld) 7.9 % Normal [facility] Comment on above: Order Comment: Speci men Type: BLOOD SPECIMENOrdering Facility: [facility] Address: [address] [place] [address] Performed By: #### 5 7021-8 ####[facility] LABCLIA [id number] [address] LABCLIA [id number] [place] [address] [place] MYELO% 2.0 % Normal [facility] Comment on above: Order Comment: Speci men Type: BLOOD SPECIMENOrdering Facility: [facility] Address: [address] [place], [place] [address] Performed By: #### 5 7021-8 ####[facility] LABCLIA [id number] [address] LABCLIA [id number] [place] [address] [place] Neutrophils (Bld) [#/Vol] 1.90 10*3/uL Normal 1.45-7.50 [facility] Comment on above: Order Comment: Speci men Type: BLOOD SPECIMENOrdering Facility: [facility] Address: [address] [place] [address] Performed By: #### 5 7021-8 ####[facility] LABCLIA [id number] [address] LABCLIA [id number] [place] [address] [place] [place] Neutrophils/100 WBC (Bld) 60.3 % Normal [facility] Comment on above: Order Comment: Speci men Type: BLOOD SPECIMENOrdering Facility: [facility] Address: [address] [place] [address] Performed By: #### 5 7021-8 ####[facility] LABCLIA [id number] [address] LABCLIA [id number] [place] [address] [place] Nucleated RBC (Bld) [#/Vol] 0.09 10*3/uL High <0.01 [facility] Comment on above: Order Comment: Speci men Type: BLOOD SPECIMENOrdering Facility: [facility] Address: [address] [place], [place] [address] Performed By: #### 5 7021-8 ####[facility] LABCLIA [id number] [address] LABCLIA [id number] [place] [address] [place] Nucleated RBC/100 WBC (Bld) [Ratio] 3.0 /100 WBC Normal [facility] Comment on above: Order Comment: Speci men Type: BLOOD SPECIMENOrdering Facility: [facility] Address: [address] Performed By: #### 5 7021-8 ####[facility] LABCLIA [id number] [address] LABCLIA [id number] [place] [address] [place] Ovalocytes LM Ql (Bld) Few Normal [facility] Comment on above: Order Comment: Speci men Type: BLOOD SPECIMENOrdering Facility: [facility] Address: [address] Performed By: #### 5 7021-8 ####[facility] LABCLIA [id number] [address] LABCLIA [id number] [place] [address] [place] Platelet mean volume (Bld) [Entitic vol] 9.3 fL Normal 9.0-12.7 [facility] Comment on above: Order Comment: Speci men Type: BLOOD SPECIMENOrdering Facility: [facility] Address: [address] [place] [address] Performed By: #### 5 7021-8 ####[facility] LABCLIA [id number] [address] LABCLIA [id number] [place] [address] [place] Platelets (Bld) [#/Vol] 80 10*3/uL Low 150-400 [facility] Comment on above: Order Comment: Speci men Type: BLOOD SPECIMENOrdering Facility: [facility] Address: [address] [place] [address] Result Comment: No c lot detected. Performed By: #### 5 7021-8 ####[facility] LABCLIA [id number] [address] LABCLIA [id number] [place] [address] [place] Platelets Estimate (Bld) [#/Vol] Decreased Normal [facility] Comment on above: Order Comment: Speci men Type: BLOOD SPECIMENOrdering Facility: [facility] Address: [address] [place] [address] Performed By: #### 5 7021-8 ####[facility] LABCLIA [id number] [address] LABCLIA [id number] [place] [address] [place] Polychromasia LM Ql (Bld) Slight Normal [facility] Comment on above: Order Comment: Speci men Type: BLOOD SPECIMENOrdering Facility: [facility] Address: [address] [place], [place] [address] Performed By: #### 5 7021-8 ####[facility] LABCLIA [id number] [address] LABCLIA [id number] [place] [address] [place] RBC (Bld) [#/Vol] 2.49 10*6/uL Low 4.20-6.00 [facility] Comment on above: Order Comment: Speci men Type: BLOOD SPECIMENOrdering Facility: [facility] Address: [address] [place], [place] [address] Performed By: #### 5 7021-8 ####[facility] LABCLIA [id number] [place] [address] LABCLIA [id number] [place] [address] [place] RED CELL MORPH Reviewed: see result s of individual morphologies Normal [facility] Comment on above: Order Comment: Speci men Type: BLOOD SPECIMENOrdering Facility: [facility] Address: [address] [place] [address] Performed By: #### 5 7021-8 ####[facility] LABCLIA [id number] [address] LABCLIA [id number] [place] [address] [place] WBC (Bld) [#/Vol] 3.15 10*3/uL Low 3.70-11.00 [facility] Comment on above: Order Comment: Speci men Type: BLOOD SPECIMENOrdering Facility: [facility] Address: [address] [place] [address] Performed By: #### 5 7021-8 ####[facility] LABCLIA [id number] [address] LABCLIA [id number] [place] [address] [place] WBC Left Shift Ql (Bld) Present Normal [facility] Comment on above: Order Comment: Speci men Type: BLOOD SPECIMENOrdering Facility: [facility] Address: [address] [place], [place] [address] Performed By: #### 5 7021-8 ####[facility] LABCLIA [id number] [address] LABCLIA [id number] [place] [address] [place] CNCNPATEDon 02-10-2023 CNCNPATED Normal [facility] CNOVSPon 02-10-2023 CNOVSP Normal [facility] CNPNon 02-10-2023 CNPN Normal [facility] PSA SerPl-mCncon 02-10-2023 Prostate specific Ag [Mass/Vol] 843.80 ng/mL High <2.60 [facility] Comment on above: Order Comment: Speci men Type: BLOOD SPECIMENOrdering Facility: [facility] Address: [address] [place] [address] Result Comment: Tota l PSA test methodology used is the Electrochemiluminescence Immunoassay by [employer]. Total PSA values by differing methodologies cannot be interchanged.For an individual patient, the significance of a PSA level should be interpreted in a broad clinical context, including age, race, family history, digital rectal exam, prostate size, results of prior testing (prostate biopsy, free PSA, PCA3), and use of 5-alpha reductase inhibitors. Considering the high incidence of asymptomatic cancer in the general population that may not pose an ultimate risk to a patient, the decision to recommend urological evaluation or prostate biopsy should be individualized after consideration of all these factors.REFERENCE:Ayla Arriaga M.D., M.P.H., Tl Betancourt M.D., Ph.D., Buster Church M.D., Lyubov Christiansen, M.P.H., Lawanda Ross, Sc.D. Effect of Verification Bias on Screening for Prostate Cancer by Measurement of Prostatic Specific Antigen. N Engl J Med 2003,349:335-42. Performed By: #### 2 857-1 ####[facility] LABCLIA [id number] [place] [address] [place] CNPNon 02-08-2023 CNPN Normal [facility] CNPNon 02-04-2023 CNPN Normal [facility] Consultation Noteon 02-04-20 Consultation Note [id number]:12 7 [facility] Consultation Noteon 02-03-20 Consultation Note [id number]:12 7 Normal [facility] CNPNon 01-31-2023 CNPN Normal [facility] Ambulatory Visit Summaryon 0 01-26-2023 Ambulatory Visit Summary KARIN MART :1940 Visit Date:01/26/2023 Ambulatory Visit Instructions Your Diagnosis BMI 22.0-22.9, adult Former smoker Your Care Team Attending Physician - Sveta Yusuf Primary Care Physician - Chayito Duarte MD This Is Your Medications List [facility] Prescription abiraterone (abiraterone 250 mg oral tablet) calcium-vitamin D (Calcium 600 D Tab) cephalexin (cephalexin 500 mg Cap) denosumab naproxen (Aleve) predniSONE (predniSONE 10 mg Tab) tamsulosin (tamsulosin 0.4 mg Cap) Procedures Performed Transrectal needle biopsy of prostate (12/02/2021), Transrectal biopsy of prostate using ultrasound (US) guidance (08/22/2018), Transrectal biopsy of prostate using ultrasound (US) guidance (04/09/2009), Transrectal biopsy of prostate using ultrasound (US) guidance (02/18/2009), Angioplasty, Cataract extraction and insertion of intraocular lens, Colonoscopy, Tonsillectomy, Vasectomy. Discharge Vitals Heart Rate (Peripheral) 72 Respiratory Rate 18 Blood Pressure 122/78 Height 173 cm Height 68 in Weight 68.3 kg Weight 150.26 lb BMI 22.82 What to do next Scheduled Follow-Up Appointments Tuesday 10:15 AM EST With: RENZO MCGARRY, Isa Son Where: [facility] Invalid Interpretation Code [address] [place] [address]- \.br\ Tuesday 9:30 AM EDT \.br\ With:\.br\ Where: [facility] Ambulatory Visit Summary KARIN MART :1940 Visit Date:01/26/2023 Ambulatory Visit Instructions Your Diagnosis BMI 22.0-22.9, adult Former smoker Your Care Team Attending Physician - Sveta Yusuf Primary Care Physician - Felicia MCGARRY, Chayito Milner This Is Your Medications List [facility] Prescription abiraterone (abiraterone 250 mg oral tablet) calcium-vitamin D (Calcium 600 D Tab) cephalexin (cephalexin 500 mg Cap) denosumab naproxen (Aleve) predniSONE (predniSONE 10 mg Tab) tamsulosin (tamsulosin 0.4 mg Cap) Procedures Performed Transrectal needle biopsy of prostate (12/02/2021), Transrectal biopsy of prostate using ultrasound (US) guidance (08/22/2018), Transrectal biopsy of prostate using ultrasound (US) guidance (04/09/2009), Transrectal biopsy of prostate using ultrasound (US) guidance (02/18/2009), Angioplasty, Cataract extraction and insertion of intraocular lens, Colonoscopy, Tonsillectomy, Vasectomy. Discharge Vitals Heart Rate (Peripheral) 72 Respiratory Rate 18 Blood Pressure 122/78 Height 173 cm Height 68 in Weight 68.3 kg Weight 150.26 lb BMI 22.82 What to do next Scheduled Follow-Up Appointments Tuesday 10:15 AM EST With: RENZO MCGARRY, Isa Son Where: [facility] Invalid Interpretation Code [address] [place] [address]- \.br\ Tuesday 9:30 AM EDT \.br\ With:\.br\ Where: [facility] CNOVon 01-26-2023 CNOV Normal [facility] Family Medicine Office/Clini c Noteon 01-26-2023 Family Medicine Office/Clinic Note HPI Staff Karin is a 82 year old male presenting for acute visit complaints of lesion rt forearm Onset: 1 month ago Characteristics: red swollen painful OTC tried: History of Present Illness pt had a fall about 1 month ago and had a skin tear on left lower arm Review of Systems PHQ Score Initial Depression Screen Score: 0 ROS - Provider Constitutional: no fever, no chills, no sweats, no fatigue Respiratory: no shortness of breath, no cough, no orthopnea, no wheezing. Cardiovascular: no chest pain, no palpitations, no edema. Neurologic: no headache, no dizziness, no numbness, no weakness. skin: abscess left lower arm Physical Exam Vitals & Measurements HR: 72(Peripheral) RR: 18 BP: 122/78 SpO2: 98% HT: 68 in HT: 173 cm WT: 68.3 kg WT: 150.26 lb BMI: 22.82 General: alert, no acute distress ENMT: oral mucosa moist, no pharyngeal erythema or exudate Cardiovascular: regular rate and rhythm, normal peripheral perfusion Respiratory: Lungs CTA, respirations non labored Extremities: no deformity, no trauma Neurological: oriented x 4, LOC appropriate for age, CN II-XII intact, motor strength equal & normal bilaterally, speech normal skin: abscess left lower arm Assessment/Plan 1. Skin infection (L08.9: Local infection of the skin and subcutaneous tissue, unspecified) pt presents today with small abscess on left lower arm. he had a fall about 1 month ago. he tried to gigi it open but didn't get anything out of it. will treat with antibiotics. pt encouraged to use warm compresses. if it starts to fill with fluid we can gigi it. RTC as needed. pt has bone cancer and is starting radiation possibly this week. 2. Abscess (L02.91: Cutaneous abscess, unspecified) see above 3. BMI 22.0-22.9, adult (Z68.22: Body mass index [BMI] 22.0-22.9, adult) BMI education complete Ordered: cephalexin, 500 mg = 1 cap(s), Oral, q12hr, # 20 cap(s), Refills(s) 0, [facility]acy: [facility]/pharmacy #[id number], 173, cm, 01/26/23 11:02:00 EDT, Height/Length Dosing, 68.3, kg, 01/26/23 11:02:00 EDT, Weight Dosing Body Mass Index (BMI) documented 3008F Current tobacco non-user 1036F Depression Screening Negative 3352F Fall Risk Screen 2 or more w/injury 1100F Most recent diastolic blood pressure <80 mm Hg 3078F Systolic BP <130 mm Hg (Most Recent) 3074F 4. 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) continue not smoking Ordered: cephalexin, 500 mg = 1 cap(s), Oral, q12hr, # 20 cap(s), Refills(s) 0, Pharmacy: [facility]/pharmacy #[id number], 173, cm, 01/26/23 11:02:00 EDT, Height/Length Dosing, 68.3, kg, 01/26/23 11:02:00 EDT, Weight Dosing Body Mass Index (BMI) documented 3008F Current tobacco non-user 1036F Depression Screening Negative 3352F Fall Risk Screen 2 or more w/injury 1100F Most recent diastolic blood pressure <80 mm Hg 3078F Systolic BP <130 mm Hg (Most Recent) 3074F Follow-up No qualifying data available Problem List/Past Medical History Ongoing Abscess Benign localized hyperplasia of prostate with urinary obstruction BPH (benign prostatic hyperplasia) BPH associated with nocturia Elevated PSA Ex-smoker Gross hematuria Mixed hyperlipidemia Nocturia Prostate cancer Prostate cancer metastatic to bone Prostate lump Prostate nodule Skin infection Urgency of urination Historical No qualifying data Procedure/Surgical History Transrectal needle biopsy of prostate (12/02/2021), Transrectal biopsy of prostate using ultrasound (US) guidance (08/22/2018), Transrectal biopsy of prostate using ultrasound (US) guidance (04/09/2009), Transrectal biopsy of prostate using ultrasound (US) guidance (02/18/2009), Angioplasty, Cataract extraction and insertion of intraocular lens, Colonoscopy, Tonsillectomy, Vasectomy. Medications abiraterone 250 mg oral tablet, 1000 mg= 4 tab(s), Oral, Daily Aleve, 200 mg, Oral, q12hr Calcium 600 D Tab, Oral, BID cephalexin 500 mg Cap, 500 mg= 1 cap(s), Oral, q12hr denosumab, See Instructions [facility] Prescription, 0 predniSONE 10 mg Tab, Oral, Daily, Investigating tamsulosin 0.4 mg Cap, 0.4 mg= 1 cap(s), Oral, BID, 3 refills Allergies No Known Medication Allergies Social History Alcohol Current, Beer, 1-2 times per month, 1.00 drinks/episode maximum. Household alcohol concerns: No., 01/05/2023 Tobacco Former smoker, quit more than 30 days ago Tobacco Use:. Never Smokeless Tobacco Use:. Household tobacco concerns: No., 01/05/2023 Family History Family history is negative Immunizations Vaccine Date Status Comments SARS-CoV-2 (COVID-19) mRNAMUL.[id number] 04/27/2022 Recorded influenza virus vaccine, inactivated 03/15/2022 Recorded SARS-CoV-2 (COVID-19) mRNA BNT-162b2 vax 04/29/2021 Recorded influenza virus vaccine, inactivated 03/11/2021 Recorded SARS-CoV-2 (COVID-19) mRNA-1273 vaccine 07/22/2020 Recorded SARS-CoV-2 (COVID-19) mRNA-1273 vaccine 06/24/2020 Recorded SARS-CoV-2 (COVID-19) mRNA-1273 vaccine 2020 Recorded pt is ful (more content not included)... Normal [facility] Comment on above: Result Comment: Elec tronically Signed By: Reid CLARK, Sveta Bonilla\.br\Date and Time Signed: 01/26/23 12:52 EDT CNPNon 01-19-2023 CNPN Normal [facility] CBC W Auto Differential pane l (Bld)on 01-18-2023 Basophils (Bld) [#/Vol] 0.04 10*3/uL Normal <0.11 [facility] Comment on above: Order Comment: Speci men Type: BLOOD SPECIMENOrdering Facility: [facility] Address: [address] [place] [address] Performed By: #### 5 7021-8 ####[facility] LABCLIA [id number] [place] [address] Basophils/100 WBC (Bld) 0.9 % Normal [facility] Comment on above: Order Comment: Speci men Type: BLOOD SPECIMENOrdering Facility: [facility] Address: [address] [place] [place] [address] Performed By: #### 5 7021-8 ####[facility] LABCLIA [id number] [place] [address] Differential cell count method Nom (Bld) Auto Normal [facility] Comment on above: Order Comment: Speci men Type: BLOOD SPECIMENOrdering Facility: [facility] Address: [address] [place] [place] [address] Performed By: #### 5 7021-8 ####[facility] LABCLIA [id number] [place] [address] Eosinophils (Bld) [#/Vol] 0.05 10*3/uL Normal <0.46 [facility] Comment on above: Order Comment: Speci men Type: BLOOD SPECIMENOrdering Facility: [facility] Address: [address] [place] [address] Performed By: #### 5 7021-8 ####[facility] LABCLIA [id number] [place] [address] Eosinophils/100 WBC (Bld) 1.1 % Normal [facility] Comment on above: Order Comment: Speci men Type: BLOOD SPECIMENOrdering Facility: [facility] Address: [address] [place] [address] Performed By: #### 5 7021-8 ####[facility] LABCLIA [id number] [place] [address] Erythrocyte distribution width (RBC) [Ratio] 15.5 % High 11.5-15.0 [facility] Comment on above: Order Comment: Speci men Type: BLOOD SPECIMENOrdering Facility: [facility] Address: [address] [place] [address] Performed By: #### 5 7021-8 ####[facility] LABCLIA [id number] [place] [address] Hematocrit (Bld) [Volume fraction] 31.0 % Low 39.0-51.0 [facility] Comment on above: Order Comment: Speci men Type: BLOOD SPECIMENOrdering Facility: [facility] Address: [address] [place] [address] Performed By: #### 5 7021-8 ####[facility] LABCLIA [id number] [place] [address] Hemoglobin (Bld) [Mass/Vol] 9.6 g/dL Low 13.0-17.0 [facility] Comment on above: Order Comment: Speci men Type: BLOOD SPECIMENOrdering Facility: [facility] Address: [address] [place] [place] [address] Performed By: #### 5 7021-8 ####[facility] LABCLIA [id number] [place] [address] Immature granulocytes (Bld) [#/Vol] 0.24 10*3/uL High <0.10 [facility] Comment on above: Order Comment: Speci men Type: BLOOD SPECIMENOrdering Facility: [facility] Address: [address] [place] [place] [address] Performed By: #### 5 7021-8 ####[facility] LABCLIA [id number] [place] [address] Immature granulocytes/100 WBC (Bld) 5.3 % Normal [facility] Comment on above: Order Comment: Speci men Type: BLOOD SPECIMENOrdering Facility: [facility] Address: [address] [address] Performed By: #### 5 7021-8 ####[facility] LABCLIA [id number] [place] [address] Lymphocytes (Bld) [#/Vol] 0.55 10*3/uL Low 1.00-4.00 [facility] Comment on above: Order Comment: Speci men Type: BLOOD SPECIMENOrdering Facility: [facility] Address: [address] [place] [address] Performed By: #### 5 7021-8 ####[facility] LABCLIA [id number] [place] [address] Lymphocytes/100 WBC (Bld) 12.1 % Normal [facility] Comment on above: Order Comment: Speci men Type: BLOOD SPECIMENOrdering Facility: [facility] Address: [address] [place] [address] Performed By: #### 5 7021-8 ####[facility] LABCLIA [id number] [place] [address] MCH (RBC) [Entitic mass] 28.5 pg Normal 26.0-34.0 [facility] Comment on above: Order Comment: Speci men Type: BLOOD SPECIMENOrdering Facility: [facility] Address: [address] [place] [address] Performed By: #### 5 7021-8 ####[facility] LABCLIA [id number] [place] [address] MCHC (RBC) [Mass/Vol] 31.0 g/dL Normal 30.5-36.[address] [facility] Comment on above: Order Comment: Speci men Type: BLOOD SPECIMENOrdering Facility: [facility] Address: [address] [place] [address] Performed By: #### 5 7021-8 ####[facility] LABIA [id number] [place] [address] MCV (RBC) [Entitic vol] 92.0 fL Normal 80.0-100.0 [facility] Comment on above: Order Comment: Speci men Type: BLOOD SPECIMENOrdering Facility: [facility] Address: [address] [place] [address] Performed By: #### 5 7021-8 ####[facility] LABIA [id number] [place] [address] Monocytes (Bld) [#/Vol] 0.33 10*3/uL Normal <0.87 [facility] Comment on above: Order Comment: Speci men Type: BLOOD SPECIMENOrdering Facility: [facility] Address: [address] [place] [address] Performed By: #### 5 7021-8 ####[facility] LABIA [id number] [place] [address] Monocytes/100 WBC (Bld) 7.3 % Normal [facility] Comment on above: Order Comment: Speci men Type: BLOOD SPECIMENOrdering Facility: [facility] Address: [address] [address] Performed By: #### 5 7021-8 ####[facility] LABCLIA [id number] [place] [address] Neutrophils (Bld) [#/Vol] 3.34 10*3/uL Normal 1.45-7.50 [facility] Comment on above: Order Comment: Speci men Type: BLOOD SPECIMENOrdering Facility: [facility] Address: [address] [address] Performed By: #### 5 7021-8 ####[facility] LABIA [id number] [place] [address] Neutrophils/100 WBC (Bld) 73.3 % Normal [facility] Comment on above: Order Comment: Speci men Type: BLOOD SPECIMENOrdering Facility: [facility] Address: [address] [place] [address] Performed By: #### 5 7021-8 ####[facility] LABIA [id number] [place] [address] Nucleated RBC (Bld) [#/Vol] 0.07 10*3/uL High <0.01 [facility] Comment on above: Order Comment: Speci men Type: BLOOD SPECIMENOrdering Facility: [facility] Address: [address] [place] [address] Performed By: #### 5 7021-8 ####[facility] LABIA [id number] [place] [address] Nucleated RBC/100 WBC (Bld) [Ratio] 1.5 /100 WBC Normal [facility] Comment on above: Order Comment: Speci men Type: BLOOD SPECIMENOrdering Facility: [facility] Address: [address] [place] [address] Performed By: #### 5 7021-8 ####[facility] LABIA [id number] [place] [address] Platelet mean volume (Bld) [Entitic vol] 8.5 fL Low 9.0-12.7 [facility] Comment on above: Order Comment: Speci men Type: BLOOD SPECIMENOrdering Facility: [facility] Address: [address] [place] [address] Performed By: #### 5 7021-8 ####[facility] LABCLIA [id number] [place] [address] Platelets (Bld) [#/Vol] 153 10*3/uL Normal 150-400 [facility] Comment on above: Order Comment: Speci men Type: BLOOD SPECIMENOrdering Facility: [facility] Address: [address] [place] [address] Performed By: #### 5 7021-8 ####[facility] LABIA [id number] [place] [address] RBC (Bld) [#/Vol] 3.37 10*6/uL Low 4.20-6.00 [facility] Comment on above: Order Comment: Speci men Type: BLOOD SPECIMENOrdering Facility: [facility] Address: [address] [place] [address] Performed By: #### 5 7021-8 ####[facility] LABIA [id number] [place] [address] WBC (Bld) [#/Vol] 4.55 10*3/uL Normal 3.70-11.00 [facility] Comment on above: Order Comment: Speci men Type: BLOOD SPECIMENOrdering Facility: [facility] Address: [address] [place] [address] Performed By: #### 5 7021-8 ####[facility] LABIA [id number] [place] [address] CNOVSPon 01-18-2023 CNOVSP Normal [facility] metabolic 2000 panelon 01-18-2023 Albumin [Mass/Vol] 4.1 g/dL Normal 3.9-4.[address] [facility] Comment on above: Order Comment: Speci men Type: BLOOD SPECIMENOrdering Facility: [facility] Address: [address] [place] [address] Performed By: #### 2 4323-8 ####[facility] LABCLIA [id number] [place] [address] ALP [Catalytic activity/Vol] 727 U/L High 38-113 [facility] Comment on above: Order Comment: Speci men Type: BLOOD SPECIMENOrdering Facility: [facility] Address: [address] [address] Performed By: #### 2 4323-8 ####[facility] LABCLIA [id number] [place] [address] ALT [Catalytic activity/Vol] 11 U/L Normal 10-54 [facility] Comment on above: Order Comment: Speci men Type: BLOOD SPECIMENOrdering Facility: [facility] Address: [address] [place] [address] Performed By: #### 2 4323-8 ####[facility] LABCLIA [id number] [place] [address] Anion gap [Moles/Vol] 8 mmol/L Low 9-[address] [facility] Comment on above: Order Comment: Speci men Type: BLOOD SPECIMENOrdering Facility: [facility] Address: [address] [address] Performed By: #### 2 4323-8 ####[facility] LABCLIA [id number] [place] [address] AST [Catalytic activity/Vol] 29 U/L Normal 14-40 [facility] Comment on above: Order Comment: Speci men Type: BLOOD SPECIMENOrdering Facility: [facility] Address: [address] [address] Performed By: #### 2 4323-8 ####[facility] LABCLIA [id number] [place] [address] Bilirubin [Mass/Vol] 0.4 mg/dL Normal 0.2-1.3 [facility] Comment on above: Order Comment: Speci men Type: BLOOD SPECIMENOrdering Facility: [facility] Address: [address] [place] [address] Performed By: #### 2 4323-8 ####[facility] LABCLIA [id number] [place] [address] Calcium [Mass/Vol] 9.4 mg/dL Normal 8.5-10.[address] [facility] Comment on above: Order Comment: Speci men Type: BLOOD SPECIMENOrdering Facility: [facility] Address: [address] [place] [address] Performed By: #### 2 4323-8 ####[facility] LABCLIA [id number] [place] [address] Chloride [Moles/Vol] 103 mmol/L Normal 97-105 [facility] Comment on above: Order Comment: Speci men Type: BLOOD SPECIMENOrdering Facility: [facility] Address: [address] [place] [address] Performed By: #### 2 4323-8 ####[facility] LABCLIA [id number] [place] [address] CO2 [Moles/Vol] 26 mmol/L Normal 22-30 [facility] Comment on above: Order Comment: Speci men Type: BLOOD SPECIMENOrdering Facility: [facility] Address: [address] [place] [address] Performed By: #### 2 4323-8 ####[facility] LABCLIA [id number] [place] [address] Creatinine [Mass/Vol] 0.99 mg/dL Normal 0.73-1.[address] [facility] Comment on above: Order Comment: Speci men Type: BLOOD SPECIMENOrdering Facility: [facility] Address: [address] [place] [address] Performed By: #### 2 4323-8 ####[facility] LABCLIA [id number] [place] [address] Creatinine and Glomerular filtration rate.predicted panel (S/P/Bld) 76 mL/min/1.73m??? Normal >=60 [facility] Comment on above: Order Comment: Vicki tovar Type: BLOOD SPECIMENOrdering Facility: [facility] Address: [address] [place] [address] Result Comment: Christelle mated Glomerular Filtration Rate (eGFR) is calculated using the 2020 CKD-EPI creatinine equation. This equation utilizes serum creatinine, sex, and age as parameters. The creatinine assay has traceable calibration to isotope dilution-mass spectrometry. Refer to KDIGO guidelines for clinical interpretation. In patients with unstable renal function, e.g. those with acute kidney injury, the eGFR may not accurately reflect actual GFR. Performed By: #### 2 4323-8 ####[facility] LABCLIA [id number] [place] [address] Glucose [Mass/Vol] 166 mg/dL High 74-[address] [facility] Comment on above: Order Comment: Vicki tovar Type: BLOOD SPECIMENOrdering Facility: [facility] Address: [address] [place] [address] Result Comment: The [place] Diabetes Association (ADA) provides guidance for cutoff values for fasting glucose and random glucose. The ADA defines fasting as no caloric intake for at least 8 hours. Fasting plasma glucose results between 100 to 125 mg/dL indicate increased risk for diabetes (prediabetes).Fasting plasma glucose results greater than or equal to 126 mg/dL meet the criteria for diagnosis of diabetes. In the absence of unequivocal hyperglycemia, results should be confirmed by repeat testing. In a patient with classic symptoms of hyperglycemia or hyperglycemic crisis, random plasma glucose results greater than or equal to 200 mg/dL meet the criteria for diagnosis of diabetes.Reference: Standards of Medical Care in Diabetes 2016, [place] Diabetes Association. Diabetes Care. 2016.39(Suppl 1). Performed By: #### 2 4323-8 ####[facility] LABCLIA [id number] [place] [address] Potassium [Moles/Vol] 5.0 mmol/L Normal 3.7-5.[address] [facility] Comment on above: Order Comment: Speci men Type: BLOOD SPECIMENOrdering Facility: [facility] Address: [address] [place] [address] Performed By: #### 2 4323-8 ####[facility] LABCLIA [id number] [place] [address] Protein [Mass/Vol] 6.6 g/dL Normal 6.3-8.[address] [facility] Comment on above: Order Comment: Speci men Type: BLOOD SPECIMENOrdering Facility: [facility] Address: [address] [place] [address] Performed By: #### 2 4323-8 ####[facility] LABIA [id number] [place] [address] Sodium [Moles/Vol] 137 mmol/L Normal 136-[address] [facility] Comment on above: Order Comment: Speci men Type: BLOOD SPECIMENOrdering Facility: [facility] Address: [address] [place] [address] Performed By: #### 2 4323-8 ####[facility] LABIA [id number] [place] [address] Urea nitrogen [Mass/Vol] 17 mg/dL Normal 9-24 [facility] Comment on above: Order Comment: Speci men Type: BLOOD SPECIMENOrdering Facility: [facility] Address: [address] [place] [address] Performed By: #### 2 4323-8 ####[facility] LABIA [id number] [place] [address] [facility] Prostate specific Ag [Mass/Vol] 742.70 ng/mL High <2.60 [facility] Comment on above: Order Comment: Speci men Type: BLOOD SPECIMENOrdering Facility: [facility] Address: [address] [place] [address] Result Comment: Vonda l PSA test methodology used is the Electrochemiluminescence Immunoassay by [employer]. Total PSA values by differing methodologies cannot be interchanged.For an individual patient, the significance of a PSA level should be interpreted in a broad clinical context, including age, race, family history, digital rectal exam, prostate size, results of prior testing (prostate biopsy, free PSA, PCA3), and use of 5-alpha reductase inhibitors. Considering the high incidence of asymptomatic cancer in the general population that may not pose an ultimate risk to a patient, the decision to recommend urological evaluation or prostate biopsy should be individualized after consideration of all these factors.REFERENCE:Ayla Arriaga M.D., M.P.H., Tl Betancourt M.D., Ph.D., Buster Church M.D., Lyubov Christiansen, M.P.H., Lawanda Ross, ScKate. Effect of Verification Bias on Screening for Prostate Cancer by Measurement of Prostatic Specific Antigen. N Engl J Med 2003,349:335-42. Performed By: #### 2 857-1 ####[facility] LABCLIA [id number] [facility] [address] [id number] [place] Lab Reportson 01-08-2023 Lab Reports [id number]#[id number]:12 7 Normal [facility] Auth for Release of Medical Recordson 01-07-2023 Auth for Release of Medical Records [id number]:12 7 [facility] Family Medicine Office/Clini c Noteon 01-06-2023 Family Medicine Office/Clinic Note Chief Complaint Subsequent Medicare Welless Visit Review of Systems PHQ Score Initial Depression Screen Score: 0 Physical Exam Vitals & Measurements HR: 77(Peripheral) BP: 130/60 SpO2: 98% HT: 173 cm HT: 68 in WT: 68.3 kg WT: 150.26 lb BMI: 22.82 Assessment/Plan 1. Annual visit for general adult medical examination without abnormal findings (Z00.00: Encounter for general adult medical examination without abnormal findings) The patient was given a customized and personalized print out of all the current AHRQ USPSTF?s recommendations for preventative services and all current CDC recommended immunizations, relevant risk recommendations and the following patient brochures were given. Reviewed Medicare preventative services checklist. CDC-Falls Prevention and home safety screening reviewed. Patient denies any falls in last 12 months, voices no worry about falling, exhibits no problems with sitting, standing, or ambulation. Pt voices understanding with keeping walk way area free of clutter to prevent tripping and/or falling. [place] Advance Directives reviewed, patient has copy at home, encouraged to bring copy to office for scanning to chart. Patient denies any problems with ADL?s and Instrumental ADL?s. Cognitive screening completed with memory and clock face drawing, no deficits noted. Immunization Record reviewed with the patient. Discussed Shingrix vaccine with educational handout and availability. COVID vaccines have been administered, with 3 boosters, immunization record is up to date. Allergies and medications reviewed and up to date. Patient denies concerns with taking medication as prescribed, reviewed OTC medications with patient, medication list up to date. Blood tests were reviewed: will request recent lipid and cmp from Dr. Marin( per patient these are up to date). Colonoscopy up to date, aged out. Reviewed pain symptoms with patient: patient rates lower back pain and knee pain 2/10. He does take Aleve twice daily with relief. Reviewed all outside providers that patient follows. Last visit summary notes available in chart and/or have been requested. AWV has been scheduled, 01/09/2024 Medicare provides yearly screening for alcohol and depression concerns. This is completed during our Medicare Wellness visit for those who do not have a current diagnosis of depression or concerns with alcohol use. I spent a total of 17 minutes on this date of service which included preparing to see the patient, face to face patient care, completing clinical documentation, obtaining and/or reviewing separately obtained history, counseling and educating the patient with handouts. Explanations were provided with reviewing questionnaires. AUDIT risk assessment screening completed, risk score 2 with patient denying concerns with use. Completed PHQ-2 risk assessment for depression with risk score 0, negative findings. Patient has been reminded to notify the provider if there would be a change or concerns with symptoms with fear, unable to sleep, worrying too much or feeling down and/or sad with lost of interest with daily activities. Will continue to monitor with screening yearly during Medicare wellness visits. 2. BPH (benign prostatic hyperplasia) (N40.0: Benign prostatic hyperplasia without lower urinary tract symptoms) Patient denies having concerns with urinary retention, distention and/or weak urinary stream at this time. Patient does follow with Dr. Muller as needed. 3. Mixed hyperlipidemia (E78.2: Mixed hyperlipidemia) Patient not taking any medication. Reviewed healthy lifestyle with low fat diet and exercise regimen. When you are overweight our body produces more lipids. Risk also increases with family history of hyperlipidemia and with monitoring alcohol use and avoid smoking. Patient voices understanding with importance of monitoring dietary intake to reduce risk factors associated with CVA. Will continue to follow up with office visits with updated labs as directed. 4. Prostate cancer (C61: Malignant neoplasm of prostate) Patient follows with Dr. Muller and Dr. Aldridge for management. Patient is receiving Lupron injections every 6 months and taking abiraterone as prescribed. Patient denies issues or concerns at visit today, states he lost some of his endurance but states he is feeling well. 5. Body mass index [BMI] 22.0-22.9, adult (Z68.22: Body mass index [BMI] 22.0-22.9, adult) The standard range for ages 18 and older is >=18.5 and < 25 kg/m2. Your BMI 22.82 today was in this range. BMI monitoring is helpful with identifying a weight problem that may be related to a medical condition, or may increase the risk for medical problems. Your BMI and weight management will be followed at subsequent visits with your provider and monitored for progress. Follow-up No qualifying data available Patient Education Fall Prevention in the Home, Adult High Cholesterol BMI for Adults Problem List/Past Medical History Ongoing Benign localized hyperpla (more content not included)... Normal [facility] Comment on above: Result Comment: Elec tronically Signed By: Sveta Yusuf.mey\Date and Time Signed: 01/06/23 07:59 EDT\.br\Electronically Co-Signed By: Jonathan Soto\.br\Date and Time Co-Signed: 01/05/23 10:48 EDT [place] 01-06-2023 Screens [id number]:12 7 Normal [facility] Ambulatory Visit Summaryon 0 01-05-2023 Ambulatory Visit Summary KARIN MART :1940 Visit Date:01/05/2023 Ambulatory Visit Instructions Your Diagnosis Annual visit for general adult medical examination without abnormal findings BPH (benign prostatic hyperplasia) Mixed hyperlipidemia Prostate cancer Body mass index [BMI] 22.0-22.9, adult Your Care Team Attending Physician - Chayito Duarte MD Primary Care Physician - Chayito Duarte MD This Is Your Medications List [facility] Prescription abiraterone (abiraterone 250 mg oral tablet) calcium-vitamin D (Calcium 600 D Tab) denosumab enzalutamide (Xtandi 80 mg oral tablet) naproxen (Aleve) predniSONE (predniSONE 10 mg Tab) tamsulosin (tamsulosin 0.4 mg Cap) Procedures Performed Transrectal needle biopsy of prostate (12/02/2021), Transrectal biopsy of prostate using ultrasound (US) guidance (08/22/2018), Transrectal biopsy of prostate using ultrasound (US) guidance (04/09/2009), Transrectal biopsy of prostate using ultrasound (US) guidance (02/18/2009), Angioplasty, Cataract extraction and insertion of intraocular lens, Colonoscopy, Tonsillectomy, Vasectomy. Discharge Vitals Heart Rate (Peripheral) 77 Blood Pressure 130/60 Height 173 cm Height 68 in Weight 68.3 kg Weight 150.26 lb BMI 22.82 What to do next Scheduled Follow-Up Appointments Tuesday 10:15 AM EST With: RENZO MCGARRY, Isa Son Where: [facility] Invalid Interpretation Code [address] [place] [address]- \.br\ Tuesday 9:30 AM EDT \.br\ With:\.br\ Where: [facility] Patient Educationon 01-06-20 23 Patient Education Caregiving Fall Prevention in the Home, Adult Falls can cause injuries and affect people of all ages. There are many simple things that you can do to make your home safe and to help prevent falls. Ask for help when making these changes, if needed. What actions can I take to prevent falls? General instructions ? Use good lighting in all rooms. Replace any light bulbs that burn out, turn on lights if it is dark, and use night-lights. ? Place frequently used items in hvta-uk-luznm places. Lower the shelves around your home if necessary. ? Set up furniture so that there are clear paths around it. Avoid moving your furniture around. ? Remove throw rugs and other tripping hazards from the floor. ? Avoid walking on wet floors. ? Fix any uneven floor surfaces. ? Add color or contrast paint or tape to grab bars and handrails in your home. Place contrasting color strips on the first and last steps of staircases. ? When you use a stepladder, make sure that it is completely opened and that the sides and supports are firmly locked. Have someone hold the ladder while you are using it. Do not climb a closed stepladder. ? Know where your pets are when moving through your home. What can I do in the bathroom? ? Keep the floor dry. Immediately clean up any water that is on the floor. ? Remove soap buildup in the tub or shower regularly. ? Use nonskid mats or decals on the floor of the tub or shower. ? Attach bath mats securely with double-sided, nonslip rug tape. ? If you need to sit down while you are in the shower, use a plastic, nonslip stool. ? Install grab bars by the toilet and in the tub and shower. Do not use towel bars as grab bars. What can I do in the bedroom? ? Make sure that a bedside light is easy to reach. ? Do not use oversized bedding that reaches the floor. ? Have a firm chair that has side arms to use for getting dressed. What can I do in the kitchen? ? Clean up any spills right away. ? If you need to reach for something above you, use a sturdy step stool that has a grab bar. ? Keep electrical cables out of the way. ? Do not use floor maldivian or wax that makes floors slippery. If you must use wax, make sure that it is non-skid floor wax. What can I do with my stairs? ? Do not leave any items on the stairs. ? Make sure that you have a light switch at the top and the bottom of the stairs. Have them installed if you do not have them. ? Make sure that there are handrails on both sides of the stairs. Fix handrails that are broken or loose. Make sure that handrails are as long as the staircases. ? Install non-slip stair treads on all stairs in your home. ? Avoid having throw rugs at the top or bottom of stairs, or secure the rugs with carpet tape to prevent them from moving. ? Choose a carpet design that does not hide the edge of steps on the stairs. ? Check any carpeting to make sure that it is firmly attached to the stairs. Fix any carpet that is loose or worn. What can I do on the outside of my home? ? Use bright outdoor lighting. ? Regularly repair the edges of walkways and driveways and fix any cracks. ? Remove high doorway thresholds. ? Trim any shrubbery on the main path into your home. ? Regularly check that handrails are securely fastened and in good repair. Both sides of all steps should have handrails. ? Install guardrails along the edges of any raised decks or porches. ? Clear walkways of debris and clutter, including tools and rocks. ? Have leaves, snow, and ice cleared regularly. ? Use sand or salt on walkways during winter months. ? In the garage, clean up any spills right away, including grease or oil spills. What other actions can I take? ? Wear closed-toe shoes that fit well and support your feet. Wear shoes that have rubber soles or low heels. ? Use mobility aids as needed, such as canes, walkers, scooters, and crutches. ? Review your medicines with your health care provider. Some medicines can cause dizziness or changes in blood pressure, which increase your risk of falling. Talk with your health care provider about other ways that you can decrease your risk of falls. This may include working with a physical therapist or strainer cleaner to improve your strength, balance, and endurance. Where to find more information ? Centers for Disease Control and Prevention, [place]: www.cdc.gov ? National [place] on Aging: www.babatunde.nih.gov Contact a health care provider if: ? You are afraid of falling at home. ? You feel weak, drowsy, or dizzy at home. ? You fall at home. Summary ? There are many simple things that you can do to make your home safe and to help prevent falls. ? Ways to make your home safe include removing tripping hazards and installing grab bars in the bathroom. ? Ask for help when making these changes in your home. This information is not intended to replace advice given to you by your health ca (more content not included)... Normal [facility] Consultation Noteon 12-28-19 Consultation Note [id number]:12 7 Normal [facility] CBC W Auto Differential pane l (Bld)on 2022 Basophils (Bld) [#/Vol] 0.04 10*3/uL Normal <0.11 [facility] Comment on above: Order Comment: Speci men Type: BLOOD SPECIMENOrdering Facility: [facility] Address: [address] [address] Performed By: #### 5 7021-8 ####[facility] LABCLIA [id number] [place] [address] Basophils/100 WBC (Bld) 0.8 % Normal [facility] Comment on above: Order Comment: Speci men Type: BLOOD SPECIMENOrdering Facility: [facility] Address: [address] [address] Performed By: #### 5 7021-8 ####[facility] LABCLIA [id number] [place] [address] Differential cell count method Nom (Bld) Auto Normal [facility] Comment on above: Order Comment: Speci men Type: BLOOD SPECIMENOrdering Facility: [facility] Address: [address] [address] Performed By: #### 5 7021-8 ####[facility] LABCLIA [id number] [place] [address] Eosinophils (Bld) [#/Vol] 0.03 10*3/uL Normal <0.46 [facility] Comment on above: Order Comment: Speci men Type: BLOOD SPECIMENOrdering Facility: [facility] Address: [address] [place] [address] Performed By: #### 5 7021-8 ####[facility] LABCLIA [id number] [place] [address] Eosinophils/100 WBC (Bld) 0.6 % Normal [facility] Comment on above: Order Comment: Speci men Type: BLOOD SPECIMENOrdering Facility: [facility] Address: [address] [place] [address] Performed By: #### 5 7021-8 ####[facility] LABCLIA [id number] [place] [address] Erythrocyte distribution width (RBC) [Ratio] 14.7 % Normal 11.5-15.0 [facility] Comment on above: Order Comment: Speci men Type: BLOOD SPECIMENOrdering Facility: [facility] Address: [address] [place] [address] Performed By: #### 5 7021-8 ####[facility] LABCLIA [id number] [place] [address] Hematocrit (Bld) [Volume fraction] 33.6 % Low 39.0-51.0 [facility] Comment on above: Order Comment: Speci men Type: BLOOD SPECIMENOrdering Facility: [facility] Address: [address] [place] [address] Performed By: #### 5 7021-8 ####[facility] LABCLIA [id number] [place] [address] Hemoglobin (Bld) [Mass/Vol] 10.5 g/dL Low 13.0-17.0 [facility] Comment on above: Order Comment: Speci men Type: BLOOD SPECIMENOrdering Facility: [facility] Address: [address] [address] Performed By: #### 5 7021-8 ####[facility] LABCLIA [id number] [place] [address] Immature granulocytes (Bld) [#/Vol] 0.08 10*3/uL Normal <0.10 [facility] Comment on above: Order Comment: Speci men Type: BLOOD SPECIMENOrdering Facility: [facility] Address: [address] [address] Performed By: #### 5 7021-8 ####[facility] LABCLIA [id number] [place] [address] Immature granulocytes/100 WBC (Bld) 1.6 % Normal [facility] Comment on above: Order Comment: Speci men Type: BLOOD SPECIMENOrdering Facility: [facility] Address: [address] [address] Performed By: #### 5 7021-8 ####[facility] LABCLIA [id number] [place] [address] Lymphocytes (Bld) [#/Vol] 0.55 10*3/uL Low 1.00-4.00 [facility] Comment on above: Order Comment: Speci men Type: BLOOD SPECIMENOrdering Facility: [facility] Address: [address] [address] Performed By: #### 5 7021-8 ####[facility] LABCLIA [id number] [place] [address] Lymphocytes/100 WBC (Bld) 10.7 % Normal [facility] Comment on above: Order Comment: Speci men Type: BLOOD SPECIMENOrdering Facility: [facility] Address: [address] [address] Performed By: #### 5 7021-8 ####[facility] LABCLIA [id number] [place] [address] MCH (RBC) [Entitic mass] 29.7 pg Normal 26.0-34.0 [facility] Comment on above: Order Comment: Speci men Type: BLOOD SPECIMENOrdering Facility: [facility] Address: [address] [place] [address] Performed By: #### 5 7021-8 ####[facility] LABCLIA [id number] [place] [address] MCHC (RBC) [Mass/Vol] 31.3 g/dL Normal 30.5-36.[address] [facility] Comment on above: Order Comment: Speci men Type: BLOOD SPECIMENOrdering Facility: [facility] Address: [address] [place] [address] Performed By: #### 5 7021-8 ####[facility] LABIA [id number] [place] [address] MCV (RBC) [Entitic vol] 94.9 fL Normal 80.0-100.0 [facility] Comment on above: Order Comment: Speci men Type: BLOOD SPECIMENOrdering Facility: [facility] Address: [address] [place] [address] Performed By: #### 5 7021-8 ####[facility] LABCLIA [id number] [place] [address] Monocytes (Bld) [#/Vol] 0.38 10*3/uL Normal <0.87 [facility] Comment on above: Order Comment: Speci men Type: BLOOD SPECIMENOrdering Facility: [facility] Address: [address] [place] [address] Performed By: #### 5 7021-8 ####[facility] LABCLIA [id number] [place] [address] Monocytes/100 WBC (Bld) 7.4 % Normal [facility] Comment on above: Order Comment: Speci men Type: BLOOD SPECIMENOrdering Facility: [facility] Address: [address] [address] Performed By: #### 5 7021-8 ####[facility] LABCLIA [id number] [place] [address] Neutrophils (Bld) [#/Vol] 4.08 10*3/uL Normal 1.45-7.50 [facility] Comment on above: Order Comment: Speci men Type: BLOOD SPECIMENOrdering Facility: [facility] Address: [address] [address] Performed By: #### 5 7021-8 ####[facility] LABCLIA [id number] [place] [address] Neutrophils/100 WBC (Bld) 78.9 % Normal [facility] Comment on above: Order Comment: Speci men Type: BLOOD SPECIMENOrdering Facility: [facility] Address: [address] [place] [address] Performed By: #### 5 7021-8 ####[facility] LABCLIA [id number] [place] [address] Nucleated RBC (Bld) [#/Vol] 10*3/uL Normal <0.01 [facility] Comment on above: Order Comment: Speci men Type: BLOOD SPECIMENOrdering Facility: [facility] Address: [address] [place] [address] Performed By: #### 5 7021-8 ####[facility] LABCLIA [id number] [place] [address] Nucleated RBC/100 WBC (Bld) [Ratio] 0.0 /100 WBC Normal [facility] Comment on above: Order Comment: Speci men Type: BLOOD SPECIMENOrdering Facility: [facility] Address: [address] [place] [address] Performed By: #### 5 7021-8 ####[facility] LABCLIA [id number] [place] [address] Platelet mean volume (Bld) [Entitic vol] 8.5 fL Low 9.0-12.7 [facility] Comment on above: Order Comment: Speci men Type: BLOOD SPECIMENOrdering Facility: [facility] Address: [address] [place] [address] Performed By: #### 5 7021-8 ####[facility] LABCLIA [id number] [place] [address] Platelets (Bld) [#/Vol] 161 10*3/uL Normal 150-400 [facility] Comment on above: Order Comment: Speci men Type: BLOOD SPECIMENOrdering Facility: [facility] Address: [address] [place] [address] Performed By: #### 5 7021-8 ####[facility] LABIA [id number] [place] [address] RBC (Bld) [#/Vol] 3.54 10*6/uL Low 4.20-6.00 [facility] Comment on above: Order Comment: Speci men Type: BLOOD SPECIMENOrdering Facility: [facility] Address: [address] [place] [address] Performed By: #### 5 7021-8 ####[facility] LABCLIA [id number] [place] [address] WBC (Bld) [#/Vol] 5.16 10*3/uL Normal 3.70-11.00 [facility] Comment on above: Order Comment: Speci men Type: BLOOD SPECIMENOrdering Facility: [facility] Address: [address] [place] [address] Performed By: #### 5 7021-8 ####[facility] LABCLIA [id number] [place] [address] Basophils (Bld) [#/Vol] 0.04 10*3/uL <0.11 k/uL [facility] Basophils/100 WBC (Bld) 0.8 % [facility] Differential cell count method Nom (Bld) Auto [facility] Eosinophils (Bld) [#/Vol] 0.03 10*3/uL <0.46 k/uL [facility] Eosinophils/100 WBC (Bld) 0.6 % [facility] Erythrocyte distribution width (RBC) [Ratio] 14.7 % 11.5 - 15.0 % [facility] Hematocrit (Bld) [Volume fraction] 33.6 % Low 39.0 - 51.0 % [facility] Hemoglobin (Bld) [Mass/Vol] 10.5 g/dL Low 13.0 - 17.0 g/dL [facility] Immature granulocytes (Bld) [#/Vol] 0.08 10*3/uL <0.10 k/uL [facility] Immature granulocytes/100 WBC (Bld) 1.6 % [facility] Lymphocytes (Bld) [#/Vol] 0.55 10*3/uL Low 1.00 - 4.00 k/uL [facility] Lymphocytes/100 WBC (Bld) 10.7 % [facility] MCH (RBC) [Entitic mass] 29.7 pg 26.0 - 34.0 pg [facility] MCHC (RBC) [Mass/Vol] 31.3 g/dL 30.5 - 36.0 g/dL [facility] MCV (RBC) [Entitic vol] 94.9 fL 80.0 - 100.0 fL [facility] Monocytes (Bld) [#/Vol] 0.38 10*3/uL <0.87 k/uL [facility] Monocytes/100 WBC (Bld) 7.4 % [facility] Neutrophils (Bld) [#/Vol] 4.08 10*3/uL 1.45 - 7.50 k/uL [facility] Neutrophils/100 WBC (Bld) 78.9 % [facility] Nucleated RBC (Bld) [#/Vol] <0.01 k/uL [facility] Nucleated RBC/100 WBC (Bld) [Ratio] 0.0 /100 WBC [facility] Platelet mean volume (Bld) [Entitic vol] 8.5 fL Low 9.0 - 12.7 fL [facility] Platelets (Bld) [#/Vol] 161 10*3/uL 150 - 400 k/uL [facility] RBC (Bld) [#/Vol] 3.54 10*6/uL Low 4.20 - 6.0 0 m/uL [facility] WBC (Bld) [#/Vol] 5.16 10*3/uL 3.70 - 11. 00 k/uL [facility] CNOVSPon 2022 CNOVSP Normal [facility] Comprehensive metabolic 2000 panelon 2022 Albumin [Mass/Vol] 3.9 g/dL Normal 3.9-4.[address] [facility] Comment on above: Order Comment: Speci men Type: BLOOD SPECIMENOrdering Facility: [facility] Address: [address] [address] Performed By: #### 2 4323-8 ####[facility] LABIA [id number] [place] [address] ALP [Catalytic activity/Vol] 444 U/L High 38-113 [facility] Comment on above: Order Comment: Speci men Type: BLOOD SPECIMENOrdering Facility: [facility] Address: [address] [address] Performed By: #### 2 4323-8 ####[facility] LABIA [id number] [place] [address] ALT [Catalytic activity/Vol] 7 U/L Low 10-54 [facility] Comment on above: Order Comment: Speci men Type: BLOOD SPECIMENOrdering Facility: [facility] Address: [address] [place] [address] Performed By: #### 2 4323-8 ####[facility] LABCLIA [id number] [place] [address] Anion gap [Moles/Vol] 10 mmol/L Normal 9-[address] [facility] Comment on above: Order Comment: Speci men Type: BLOOD SPECIMENOrdering Facility: [facility] Address: [address] [address] Performed By: #### 2 4323-8 ####[facility] LABCLIA [id number] [place] [address] AST [Catalytic activity/Vol] 18 U/L Normal 14-40 [facility] Comment on above: Order Comment: Speci men Type: BLOOD SPECIMENOrdering Facility: [facility] Address: [address] [place] [address] Performed By: #### 2 4323-8 ####[facility] LABCLIA [id number] [place] [address] Bilirubin [Mass/Vol] 0.4 mg/dL Normal 0.2-1.3 [facility] Comment on above: Order Comment: Speci men Type: BLOOD SPECIMENOrdering Facility: [facility] Address: [address] [place] [address] Performed By: #### 2 4323-8 ####[facility] LABCLIA [id number] [place] [address] Calcium [Mass/Vol] 9.0 mg/dL Normal 8.5-10.[address] [facility] Comment on above: Order Comment: Speci men Type: BLOOD SPECIMENOrdering Facility: [facility] Address: [address] [place] [address] Performed By: #### 2 4323-8 ####[facility] LABCLIA [id number] [place] [address] Chloride [Moles/Vol] 103 mmol/L Normal 97-105 [facility] Comment on above: Order Comment: Speci men Type: BLOOD SPECIMENOrdering Facility: [facility] Address: [address] [place] [address] Performed By: #### 2 4323-8 ####[facility] LABCLIA [id number] [place] [address] CO2 [Moles/Vol] 26 mmol/L Normal 22-30 [facility] Comment on above: Order Comment: Speci men Type: BLOOD SPECIMENOrdering Facility: [facility] Address: [address] [place] [address] Performed By: #### 2 4323-8 ####[facility] LABCLIA [id number] [place] [address] Creatinine [Mass/Vol] 0.92 mg/dL Normal 0.73-1.[address] [facility] Comment on above: Order Comment: Speci men Type: BLOOD SPECIMENOrdering Facility: [facility] Address: [address] [address] Performed By: #### 2 4323-8 ####[facility] LABCLIA [id number] [place] [address] ESTIMATED GLOMERULAR FILTRATION RATE 83 mL/min/1.73m??? Normal >=60 [facility] Comment on above: Order Comment: Elieli men Type: BLOOD SPECIMENOrdering Facility: [facility] Address: [address] [place] [address] Result Comment: Christelle mated Glomerular Filtration Rate (eGFR) is calculated using the 2020 CKD-EPI creatinine equation. This equation utilizes serum creatinine, sex, and age as parameters. The creatinine assay has traceable calibration to isotope dilution-mass spectrometry. Refer to KDIGO guidelines for clinical interpretation. In patients with unstable renal function, e.g. those with acute kidney injury, the eGFR may not accurately reflect actual GFR. Performed By: #### 2 4323-8 ####[facility] LABCLIA [id number] [place] [address] Glucose [Mass/Vol] 101 mg/dL High 74-[address] [facility] Comment on above: Order Comment: Speci men Type: BLOOD SPECIMENOrdering Facility: [facility] Address: [address] [place] [address] Result Comment: The [place] Diabetes Association (ADA) provides guidance for cutoff values for fasting glucose and random glucose. The ADA defines fasting as no caloric intake for at least 8 hours. Fasting plasma glucose results between 100 to 125 mg/dL indicate increased risk for diabetes (prediabetes).Fasting plasma glucose results greater than or equal to 126 mg/dL meet the criteria for diagnosis of diabetes. In the absence of unequivocal hyperglycemia, results should be confirmed by repeat testing. In a patient with classic symptoms of hyperglycemia or hyperglycemic crisis, random plasma glucose results greater than or equal to 200 mg/dL meet the criteria for diagnosis of diabetes.Reference: Standards of Medical Care in Diabetes 2016, [place] [employer]. Diabetes Care. 2016.39(Suppl 1). Performed By: #### 2 4323-8 ####[facility] LABCLIA [id number] [place] [address] Potassium [Moles/Vol] 4.2 mmol/L Normal 3.7-5.[address] [facility] Comment on above: Order Comment: Speci men Type: BLOOD SPECIMENOrdering Facility: [facility] Address: [address] [address] Performed By: #### 2 4323-8 ####[facility] LABCLIA [id number] [place] [address] Protein [Mass/Vol] 6.1 g/dL Low 6.3-8.[address] [facility] Comment on above: Order Comment: Speci men Type: BLOOD SPECIMENOrdering Facility: [facility] Address: [address] [address] Performed By: #### 2 4323-8 ####[facility] LABCLIA [id number] [place] [address] Sodium [Moles/Vol] 139 mmol/L Normal 136-[address] [facility] Comment on above: Order Comment: Speci men Type: BLOOD SPECIMENOrdering Facility: [facility] Address: [address] [address] Performed By: #### 2 4323-8 ####[facility] LABCLIA [id number] [place] [address] Urea nitrogen [Mass/Vol] 17 mg/dL Normal 9-24 [facility] Comment on above: Order Comment: Speci men Type: BLOOD SPECIMENOrdering Facility: [facility] Address: [address] [address] Performed By: #### 2 4323-8 ####[facility] LABCLIA [id number] [place] [address] CNPDena 12-14-2022 CNPN Normal [facility] Office/Clini c Noteon 12-13-2022 Family Medicine Office/Clinic Note Chief Complaint establish care HPI Staff Karin is a 81 year male patient presenting to the office to establish care and discuss medications. 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 Establish Care: History: Prostate cancer, Hyperlipidemia, Any previous diagnosis: History of seeing any specialist: Dr Aldridge oncologist, Dr Muller urology When was your last doctors visit: 10/28/21 Last provider: Luis Any recent labs: 09/07/21 Health Maintenance UTD: Colonoscopy: about 10 yrs ago, no longer needs them PSA: 373.05 11/19/22 covid: UTD Acute: Current issues/complaints: flare up hard to walk or climb stiar, Dr Aldridge was contacted and told to try aleve and it cleared things up. He ? ok to continue the aleve bid History of Present Illness Karin Mart is an 81-year-old male who presents today for an evaluation of back pain. The patient had an onset of back pain about 1.5 weeks ago. He was having difficulty getting out of bed and moving around. He called Dr. Aldridge on 12/05/2021, and he was advised to try Aleve. He took Aleve on 12/06/2021, and by the afternoon, his symptoms have improved. He usually takes 2 tablets of Aleve in the morning and evening. He states that he does not want to take more medications. He wants to taper back to once a day since he has now improved, and he only has mild pain left in his knees from working. When he has some pain, he would take Tylenol. He tries to do some stretching, push-ups, and bending every morning. He tries to stay active around his house, but not as much at one time. He is feeling stable at this time considering his diagnosis and flareup of cancer in 11/2021. He is having difficulty normalizing his PSA. He was prescribed with abiraterone 1000 mg, take 4 of 250 mg tablets before breakfast. Review of Systems PHQ Score Initial Depression Screen Score: 0 Physical Exam Vitals & Measurements T: 36.6 ?C(Oral) HR: 76(Peripheral) RR: 14 BP: 130/72 SpO2: 96% HT: 69 in HT: 175.0 cm WT: 69.2 kg WT: 152.24 lb BMI: 22.6 General: alert, no acute distress ENMT: oral mucosa moist, no pharyngeal erythema or exudate Cardiovascular: regular rate and rhythm, normal peripheral perfusion Respiratory: Lungs CTA, respirations non labored Extremities: no deformity, no trauma Neurological: oriented x 4, LOC appropriate for age, CN II-XII intact, motor strength equal & normal bilaterally, speech normal Musculoskeletal: No tenderness to palpation in the lower back. Assessment/Plan 1. 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 We will continue to monitor. Discussed alternating between tramadol, Tylenol, and naproxen to see if this will help with the pain. If the patient does not want to continue with the naproxen at this time, the patient at this time would like to just stick with naproxen. I am agreeable to this, and the patient will try to cut down to see if he can tolerate it. 2. Prostate cancer metastatic to bone (C61: Malignant neoplasm of prostate) Patient has seen Dr. Aldridge. He is on multiple medications for this, and we will have him continue to follow with Dr. Aldridge 3. Mixed hyperlipidemia (E78.2: Mixed hyperlipidemia) Given the patient's age of 81-year-old and his comorbidities, statin medication is not advised, going further. 4. Body mass index [BMI] 22.0-22.9, adult (Z68.22: Body mass index [BMI] 22.0-22.9, adult) BMI education given. 5. 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 We will see the patient back in 6 months. Portions of this record may have been created with voice recognition artificial intelligence software, specifically [employer], [employer] and or [employer]. Substitutions may have occurred due to the inherent limitations of voice recognition and artificial intelligence software. Documentation services were performed after patient or guardian consented to allow [employer] to record this visit. MAMI customer management specialist and provider reviewed before signing. MAMI: Zoila Biesequiel. Follow-up No qualifying data available Problem List/Past Medical History Ongoing Benign localized hyperplasia of prostate with urinary obstruction BPH (benign prostatic hyperplasia) BPH associated with nocturia Elevated PSA Ex-smoker Gross hematuria Mixed hyperlipidemia Nocturia Prostate cancer Prostate cancer metastatic to bone Prostate lump Prostate nodule Urgency of urination Historical No qualifying data Procedure/Surgical History Transrectal needle biopsy of prostate (12/02/2021), Transrectal biopsy of prostate using ultrasound (US) guidance (08/22/2018), Transrectal biopsy of prostate using ultrasound (US) guidance (04/09/2009), Transrectal biopsy of prostate using ultrasound (US) guidance (02/18/2009), Angioplasty, Cataract extraction and insertion of intraocular lens, Colonosc (more content not included)... 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 Mixed hyperlipidemia Body mass index [BMI] 22.0-22.9, adult Ex-smoker Your Care Team Attending Physician - Chayito Duarte MD Primary Care Physician - Chayito Duarte MD This Is Your Medications List Contact prescribing physician if questions or concerns abiraterone (abiraterone 250 mg oral tablet) calcium-vitamin D (Calcium 600 D Tab) denosumab enzalutamide (Xtandi 80 mg oral tablet) predniSONE (predniSONE 10 mg Tab) tamsulosin (tamsulosin 0.4 mg Cap) Procedures Performed Transrectal needle biopsy of prostate (12/02/2021), Transrectal biopsy of prostate using ultrasound (US) guidance (08/22/2018), Transrectal biopsy of prostate using ultrasound (US) guidance (04/09/2009), Transrectal biopsy of prostate using ultrasound (US) guidance (02/18/2009), Angioplasty, Cataract extraction and insertion of intraocular lens, Colonoscopy, Tonsillectomy, Vasectomy. Discharge Vitals Temperature (Oral) 36.6 ?C Heart Rate (Peripheral) 76 Respiratory Rate 14 Blood Pressure 130/72 Height 175.0 cm Height 69 in Weight 69.2 kg Weight 152.24 lb BMI 22.6 What to do next Scheduled Follow-Up Appointments Tuesday 9:30 AM EDT With: Where: [facility] Invalid Interpretation Code [address] [place] [address] [place] [address]- \.br\ Tuesday 9:00 AM EST \.br\ With: Chayito Duarte MD\.br\ Where: [facility] CBC W Auto Differential pane l (Bld)on 12-08-2022 Basophils (Bld) [#/Vol] 0.03 10*3/uL Normal <0.11 [facility] Comment on above: Order Comment: Speci men Type: BLOOD SPECIMENOrdering Facility: [facility] Address: [address] [place] [address] Performed By: #### 5 7021-8 ####[facility] LABCLIA [id number] [place] [address] Basophils/100 WBC (Bld) 0.7 % Normal [facility] Comment on above: Order Comment: Speci men Type: BLOOD SPECIMENOrdering Facility: [facility] Address: [address] [address] Performed By: #### 5 7021-8 ####[facility] LABCLIA [id number] [place] [address] Differential cell count method Nom (Bld) Auto Normal [facility] Comment on above: Order Comment: Speci men Type: BLOOD SPECIMENOrdering Facility: [facility] Address: [address] [address] Performed By: #### 5 7021-8 ####[facility] LABCLIA [id number] [place] [address] Eosinophils (Bld) [#/Vol] 0.07 10*3/uL Normal <0.46 [facility] Comment on above: Order Comment: Speci men Type: BLOOD SPECIMENOrdering Facility: [facility] Address: [address] [place] [address] Performed By: #### 5 7021-8 ####[facility] LABCLIA [id number] [place] [address] Eosinophils/100 WBC (Bld) 1.7 % Normal [facility] Comment on above: Order Comment: Speci men Type: BLOOD SPECIMENOrdering Facility: [facility] Address: [address] [place] [address] Performed By: #### 5 7021-8 ####[facility] LABCLIA [id number] [place] [address] Erythrocyte distribution width (RBC) [Ratio] 14.0 % Normal 11.5-15.0 [facility] Comment on above: Order Comment: Speci men Type: BLOOD SPECIMENOrdering Facility: [facility] Address: [address] [place] [address] Performed By: #### 5 7021-8 ####[facility] LABCLIA [id number] [place] [address] Hematocrit (Bld) [Volume fraction] 34.1 % Low 39.0-51.0 [facility] Comment on above: Order Comment: Speci men Type: BLOOD SPECIMENOrdering Facility: [facility] Address: [address] [place] [address] Performed By: #### 5 7021-8 ####[facility] LABCLIA [id number] [place] [address] Hemoglobin (Bld) [Mass/Vol] 10.6 g/dL Low 13.0-17.0 [facility] Comment on above: Order Comment: Speci men Type: BLOOD SPECIMENOrdering Facility: [facility] Address: [address] [address] Performed By: #### 5 7021-8 ####[facility] LABCLIA [id number] [place] [address] Immature granulocytes (Bld) [#/Vol] 0.06 10*3/uL Normal <0.10 [facility] Comment on above: Order Comment: Speci men Type: BLOOD SPECIMENOrdering Facility: [facility] Address: [address] [address] Performed By: #### 5 7021-8 ####[facility] LABCLIA [id number] [place] [address] Immature granulocytes/100 WBC (Bld) 1.5 % Normal [facility] Comment on above: Order Comment: Speci men Type: BLOOD SPECIMENOrdering Facility: [facility] Address: [address] [place] [address] Performed By: #### 5 7021-8 ####[facility] LABCLIA [id number] [place] [address] Lymphocytes (Bld) [#/Vol] 0.65 10*3/uL Low 1.00-4.00 [facility] Comment on above: Order Comment: Speci men Type: BLOOD SPECIMENOrdering Facility: [facility] Address: [address] [place] [address] Performed By: #### 5 7021-8 ####[facility] LABCLIA [id number] [place] [address] Lymphocytes/100 WBC (Bld) 15.7 % Normal [facility] Comment on above: Order Comment: Speci men Type: BLOOD SPECIMENOrdering Facility: [facility] Address: [address] [place] [address] Performed By: #### 5 7021-8 ####[facility] LABCLIA [id number] [place] [address] MCH (RBC) [Entitic mass] 29.4 pg Normal 26.0-34.0 [facility] Comment on above: Order Comment: Speci men Type: BLOOD SPECIMENOrdering Facility: [facility] Address: [address] [place] [address] Performed By: #### 5 7021-8 ####[facility] LABCLIA [id number] [place] [address] MCHC (RBC) [Mass/Vol] 31.1 g/dL Normal 30.5-36.[address] [facility] Comment on above: Order Comment: Speci men Type: BLOOD SPECIMENOrdering Facility: [facility] Address: [address] [place] [address] Performed By: #### 5 7021-8 ####[facility] LABCLIA [id number] [place] [address] MCV (RBC) [Entitic vol] 94.7 fL Normal 80.0-100.0 [facility] Comment on above: Order Comment: Speci men Type: BLOOD SPECIMENOrdering Facility: [facility] Address: [address] [place] [address] Performed By: #### 5 7021-8 ####[facility] LABCLIA [id number] [place] [address] Monocytes (Bld) [#/Vol] 0.30 10*3/uL Normal <0.87 [facility] Comment on above: Order Comment: Speci men Type: BLOOD SPECIMENOrdering Facility: [facility] Address: [address] [place] [address] Performed By: #### 5 7021-8 ####[facility] LABCLIA [id number] [place] [address] Monocytes/100 WBC (Bld) 7.3 % Normal [facility] Comment on above: Order Comment: Speci men Type: BLOOD SPECIMENOrdering Facility: [facility] Address: [address] [place] [address] Performed By: #### 5 7021-8 ####[facility] LABCLIA [id number] [place] [address] Neutrophils (Bld) [#/Vol] 3.02 10*3/uL Normal 1.45-7.50 [facility] Comment on above: Order Comment: Speci men Type: BLOOD SPECIMENOrdering Facility: [facility] Address: [address] [place] [address] Performed By: #### 5 7021-8 ####[facility] LABCLIA [id number] [place] [address] Neutrophils/100 WBC (Bld) 73.1 % Normal [facility] Comment on above: Order Comment: Speci men Type: BLOOD SPECIMENOrdering Facility: [facility] Address: [address] [place] [address] Performed By: #### 5 7021-8 ####[facility] LABCLIA [id number] [place] [address] Nucleated RBC (Bld) [#/Vol] 10*3/uL Normal <0.01 [facility] Comment on above: Order Comment: Speci men Type: BLOOD SPECIMENOrdering Facility: [facility] Address: [address] [place] [address] Performed By: #### 5 7021-8 ####[facility] LABCLIA [id number] [place] [address] Nucleated RBC/100 WBC (Bld) [Ratio] 0.0 /100 WBC Normal [facility] Comment on above: Order Comment: Speci men Type: BLOOD SPECIMENOrdering Facility: [facility] Address: [address] [place] [address] Performed By: #### 5 7021-8 ####[facility] LABCLIA [id number] [place] [address] Platelet mean volume (Bld) [Entitic vol] 8.3 fL Low 9.0-12.7 [facility] Comment on above: Order Comment: Speci men Type: BLOOD SPECIMENOrdering Facility: [facility] Address: [address] [place] [address] Performed By: #### 5 7021-8 ####[facility] LABCLIA [id number] [place] [address] Platelets (Bld) [#/Vol] 258 10*3/uL Normal 150-400 [facility] Comment on above: Order Comment: Speci men Type: BLOOD SPECIMENOrdering Facility: [facility] Address: [address] [place] [address] Performed By: #### 5 7021-8 ####[facility] LABCLIA [id number] [place] [address] RBC (Bld) [#/Vol] 3.60 10*6/uL Low 4.20-6.00 [facility] Comment on above: Order Comment: Speci men Type: BLOOD SPECIMENOrdering Facility: [facility] Address: [address] [place] [address] Performed By: #### 5 7021-8 ####[facility] LABIA [id number] [place] [address] WBC (Bld) [#/Vol] 4.13 10*3/uL Normal 3.70-11.00 [facility] Comment on above: Order Comment: Speci men Type: BLOOD SPECIMENOrdering Facility: [facility] Address: [address] [place] [address] Performed By: #### 5 7021-8 ####[facility] LABIA [id number] [place] [address] Comprehensive metabolic 2000 panelon 12-08-2022 Albumin [Mass/Vol] 3.7 g/dL Low 3.9-4.[address] [facility] Comment on above: Order Comment: Speci men Type: BLOOD SPECIMENOrdering Facility: [facility] Address: [address] [address] Performed By: #### 2 4323-8 ####[facility] LABCLIA [id number] [place] [address] ALP [Catalytic activity/Vol] 356 U/L High 38-113 [facility] Comment on above: Order Comment: Speci men Type: BLOOD SPECIMENOrdering Facility: [facility] Address: [address] [address] Performed By: #### 2 4323-8 ####[facility] LABCLIA [id number] [place] [address] ALT [Catalytic activity/Vol] 9 U/L Low 10-54 [facility] Comment on above: Order Comment: Speci men Type: BLOOD SPECIMENOrdering Facility: [facility] Address: [address] [address] Performed By: #### 2 4323-8 ####[facility] LABCLIA [id number] [place] [address] Anion gap [Moles/Vol] 8 mmol/L Low 9-[address] [facility] Comment on above: Order Comment: Speci men Type: BLOOD SPECIMENOrdering Facility: [facility] Address: [address] [place] [address] Performed By: #### 2 4323-8 ####[facility] LABCLIA [id number] [place] [address] AST [Catalytic activity/Vol] 15 U/L Normal 14-40 [facility] Comment on above: Order Comment: Speci men Type: BLOOD SPECIMENOrdering Facility: [facility] Address: [address] [place] [address] Performed By: #### 2 4323-8 ####[facility] LABCLIA [id number] [place] [address] Bilirubin [Mass/Vol] 0.3 mg/dL Normal 0.2-1.3 [facility] Comment on above: Order Comment: Speci men Type: BLOOD SPECIMENOrdering Facility: [facility] Address: [address] [address] Performed By: #### 2 4323-8 ####[facility] LABCLIA [id number] [place] [address] Calcium [Mass/Vol] 8.7 mg/dL Normal 8.5-10.[address] [facility] Comment on above: Order Comment: Speci men Type: BLOOD SPECIMENOrdering Facility: [facility] Address: [address] [address] Performed By: #### 2 4323-8 ####[facility] LABCLIA [id number] [place] [address] Chloride [Moles/Vol] 106 mmol/L High 97-105 [facility] Comment on above: Order Comment: Speci men Type: BLOOD SPECIMENOrdering Facility: [facility] Address: [address] [address] Performed By: #### 2 4323-8 ####[facility] LABCLIA [id number] [place] [address] CO2 [Moles/Vol] 28 mmol/L Normal 22-30 [facility] Comment on above: Order Comment: Speci men Type: BLOOD SPECIMENOrdering Facility: [facility] Address: [address] [address] Performed By: #### 2 4323-8 ####[facility] LABCLIA [id number] [place] [address] Creatinine [Mass/Vol] 1.03 mg/dL Normal 0.73-1.[address] [facility] Comment on above: Order Comment: Speci men Type: BLOOD SPECIMENOrdering Facility: [facility] Address: [address] [address] Performed By: #### 2 4323-8 ####[facility] LABCLIA [id number] [place] [address] ESTIMATED GLOMERULAR FILTRATION RATE 73 mL/min/1.73m??? Normal >=60 [facility] Comment on above: Order Comment: Vicki tovar Type: BLOOD SPECIMENOrdering Facility: [facility] Address: [address] [place] [address] Result Comment: Christelle mated Glomerular Filtration Rate (eGFR) is calculated using the 2020 CKD-EPI creatinine equation. This equation utilizes serum creatinine, sex, and age as parameters. The creatinine assay has traceable calibration to isotope dilution-mass spectrometry. Refer to KDIGO guidelines for clinical interpretation. In patients with unstable renal function, e.g. those with acute kidney injury, the eGFR may not accurately reflect actual GFR. Performed By: #### 2 4323-8 ####[facility] LABCLIA [id number] [place] [address] Glucose [Mass/Vol] 122 mg/dL High 74-[address] [facility] Comment on above: Order Comment: Vicki tovar Type: BLOOD SPECIMENOrdering Facility: [facility] Address: [address] [place] [address] Result Comment: The [place] Diabetes Association (ADA) provides guidance for cutoff values for fasting glucose and random glucose. The ADA defines fasting as no caloric intake for at least 8 hours. Fasting plasma glucose results between 100 to 125 mg/dL indicate increased risk for diabetes (prediabetes).Fasting plasma glucose results greater than or equal to 126 mg/dL meet the criteria for diagnosis of diabetes. In the absence of unequivocal hyperglycemia, results should be confirmed by repeat testing. In a patient with classic symptoms of hyperglycemia or hyperglycemic crisis, random plasma glucose results greater than or equal to 200 mg/dL meet the criteria for diagnosis of diabetes.Reference: Standards of Medical Care in Diabetes 2016, [place] [employer]. Diabetes Care. 2016.39(Suppl 1). Performed By: #### 2 4323-8 ####[facility] LABCLIA [id number] [place] [address] Potassium [Moles/Vol] 4.5 mmol/L Normal 3.7-5.[address] [facility] Comment on above: Order Comment: Speci men Type: BLOOD SPECIMENOrdering Facility: [facility] Address: [address] [place] [address] Performed By: #### 2 4323-8 ####[facility] LABCLIA [id number] [place] [address] Protein [Mass/Vol] 6.2 g/dL Low 6.3-8.[address] [facility] Comment on above: Order Comment: Speci men Type: BLOOD SPECIMENOrdering Facility: [facility] Address: [address] [place] [address] Performed By: #### 2 4323-8 ####[facility] LABCLIA [id number] [place] [address] Sodium [Moles/Vol] 142 mmol/L Normal 136-[address] [facility] Comment on above: Order Comment: Speci men Type: BLOOD SPECIMENOrdering Facility: [facility] Address: [address] [place] [address] Performed By: #### 2 4323-8 ####[facility] LABCLIA [id number] [place] [address] Urea nitrogen [Mass/Vol] 13 mg/dL Normal 9-24 [facility] Comment on above: Order Comment: Speci men Type: BLOOD SPECIMENOrdering Facility: [facility] Address: [address] [place] [address] Performed By: #### 2 4323-8 ####[facility] LABCLIA [id number] [place] [address] PSA [facility] 12-08-2022 Prostate specific Ag [Mass/Vol] 323.60 ng/mL High <2.60 [facility] Comment on above: Order Comment: Speci men Type: BLOOD SPECIMENOrdering Facility: [facility] Address: [address] [place] [address] Result Comment: Tota l PSA test methodology used is the Electrochemiluminescence Immunoassay by [employer]. Total PSA values by differing methodologies cannot be interchanged.For an individual patient, the significance of a PSA level should be interpreted in a broad clinical context, including age, race, family history, digital rectal exam, prostate size, results of prior testing (prostate biopsy, free PSA, PCA3), and use of 5-alpha reductase inhibitors. Considering the high incidence of asymptomatic cancer in the general population that may not pose an ultimate risk to a patient, the decision to recommend urological evaluation or prostate biopsy should be individualized after consideration of all these factors.REFERENCE:Ayla Arriaga M.D., M.P.H., Tl Betancourt M.D., Ph.D., Buster Church M.D., Lyubov Christiansen, M.P.H., Lawanda Ross, Sc.D. Effect of Verification Bias on Screening for Prostate Cancer by Measurement of Prostatic Specific Antigen. N Engl J Med 2003,349:335-42. Performed By: #### 2 857-1 ####[facility] LABCLIA [id number] [place] [address] [place] Lab Reportson 11-30-2022 Lab Reports [id number]:12 7 Normal [facility] Ambulatory Visit Summaryon 0 11-29-2022 Ambulatory Visit Summary LISBETHKARIN :1940 Visit Date:11/29/2022 Ambulatory Visit Instructions Your Diagnosis Prostate cancer metastatic to bone BPH (benign prostatic hyperplasia) Tests Performed Urnls Dip Stick Auto w/o Microscopy POC 40451 Your Care Team Attending Physician - RENZO MCGARRY, Isa Son Primary Care Physician - LUIS MCGARRY, NINA Mckee This Is Your Medications List tamsulosin (tamsulosin 0.4 mg Cap) Contact prescribing physician if questions or concerns abiraterone (abiraterone 250 mg oral tablet) calcium-vitamin D (Calcium 600 D Tab) denosumab enzalutamide (Xtandi 80 mg oral tablet) predniSONE (predniSONE 10 mg Tab) Procedures Performed Transrectal needle biopsy of prostate (12/02/2021), Transrectal biopsy of prostate using ultrasound (US) guidance (08/22/2018), Transrectal biopsy of prostate using ultrasound (US) guidance (04/09/2009), Transrectal biopsy of prostate using ultrasound (US) guidance (02/18/2009), Angioplasty, Cataract extraction and insertion of intraocular lens, Colonoscopy, Tonsillectomy, Vasectomy. Discharge Vitals Heart Rate (Peripheral) 139 Respiratory Rate 16 Blood Pressure 127/57 Height 175 cm Height 69 in Weight 58 kg Weight 127.6 lb BMI 18.94 What to do next Scheduled Follow-Up Appointments 2022 8:00 AM EDT With: Chayito Duarte MD Where: [facility] [address] [place] [address] [place] [address]- \.br\ You Need to Schedule the Following Appointments\. br\ Follow Up with RENZO MCGARRY, CLINT Sahu When: In 6 months\.br\ Where:\.br\ [facility] [address]\.br\ [place] [address]-\.br\ [phone]\.br \ Medications\.b r\ What How Much When Instructions\. br\ Unchanged tamsulosin (tamsulosin 0.4 mg Cap) 1 Capsules By Mouth 2 times a day\.br\ Unchanged abiraterone (abiraterone 250 mg oral tablet) 4 Tablets By Mouth Every day Contact prescribing physician if questions or concerns \.br\ Unchanged calcium-vitami n D (Calcium 600 D Tab) By Mouth 2 times a day Contact prescribing physician if questions or concerns \.br\ Unchanged denosumab Subcutaneous Contact prescribing physician if questions or concerns \.br\ Unchanged enzalutamide (Xtandi 80 mg oral tablet) By Mouth Every day Contact prescribing physician if questions or concerns \.br\ Unchanged predniSONE (predniSONE 10 mg Tab) By Mouth Every day Contact prescribing physician if questions or concerns \.br\ Test Results\.br\ Urnls Dip Stick Auto w/o Microscopy POC 08077 (11/29/2022)\. br\ Bilirubin Urine Dipstick - Negative\.br\ Blood Urine Dipstick - Negative\.br\ Glucose Urine Dipstick - Negative\.br\ Ketones Urine Dipstick - Negative\.br\ Leukocytes Urine Dipstick - Negative\.br\ Nitrite Urine Dipstick - Negative\.br\ Protein Urine Dipstick - 2+ (100 mg/dl)\.br\ Specific [place] Urine Dipstick - 1.015\.br\ Urine Appearance Urine Dipstick - Clear\.br\ Urine Color Urine Dipstick - Yellow\.br\ Urobilinogen Urine Dipstick - 4 EU/dl\.br\ pH Urine Dipstick - 6\.br\ Medications and Immunizations Administered\. br\ Given\.br\ Lupron Depot 45 mg/6 months intramuscular injection, extended release, 45 mg, IntraMuscular. For: Prostate cancer metastatic to bone, BPH (benign prostatic hyperplasia)\. br\ Allergies\.br\ No Known Medication Allergies\.br\ Problems\.br\ Ongoing - Any problem that you are currently receiving treatment for.\.br\ Benign localized hyperplasia of prostate with urinary obstruction\.b r\ BPH (benign prostatic hyperplasia)\. br\ BPH associated with nocturia\.br\ Elevated PSA\.br\ Ex-smoker\.br\ Gross hematuria\.br\ Hyperlipidemia \.br\ Nocturia\.br\ Prostate cancer\.br\ Prostate cancer metastatic to bone\.br\ Prostate lump\.br\ Prostate nodule\.br\ Urgency of urination\.br\ Education Materials\.br\ Prostate Cancer\.br\ \.br\ The prostate is a small gland that produces fluid that makes up semen (seminal fluid). It is located below the bladder in men, in front of the rectum. Prostate cancer is the abnormal growth of cells in the prostate gland.\.br\ What are the causes?\.br\ The exact cause of this condition is not known.\.br\ What increases the risk?\.br\ You are more likely to develop this condition if:\.br\ ? \.br\ You are 65 years of age or older.\.br\ ? \.br\ You have a family history of prostate cancer.\.br\ ? \.br\ You have a family history of breast and ovarian cancer.\.br\ ? \.br\ You have genes that are passed from parent to child (inherited), such as BRCA1 and BRCA2.\.br\ ? \.br\ You have Nelson syndrome.\.br\ men and men of descent are diagnosed with prostate cancer at higher rates than other men. The reasons for this are not well understood and are likely due to a combination of genetic and environmental factors.\.br\ What are the signs or symptoms?\.br\ Symptoms of this condition include:\.br\ ? \.br\ Problems with urination. This may include:\.br\ ? \.br\ A weak or interrupted flow of urine.\.br\ ? \.br\ Trouble starting or stopping urination.\.br \ ? \.br\ Trouble emptying the bladder all the way.\.br\ ? \.br\ The need to urinate more often, especially at night.\.br\ ? \.br\ Blood in urine or semen.\.br\ ? \.br\ Persistent pain or discomfort in the lower back, lower abdomen, or hips.\.br\ ? \.br\ Trouble getting an erection.\.br\ ? \.br\ Weakness or numbness in the legs or feet.\.br\ How is this diagnosed?\.br \ This condition can be diagnosed with:\.br\ ? \.br\ A digital rectal exam. For this exam, a health care provider inserts a gloved finger into the rectum to feel the prostate gland.\.br\ ? \.br\ A blood test called a prostate-speci fic antigen (PSA) test.\.br\ ? \.br\ A procedure in which a sample of tissue is taken from the prostate and checked under a microscope (prostate biopsy).\.br\ ? \.br\ An imaging test called transrectal ultrasonograph y.\.br\ Once the condition is diagnosed, tests will be done to determine how far the cancer has spread. This is called staging the cancer. Staging may involve imaging tests, such as a bone scan, CT scan, PET scan, or MRI.\.br\ Stages of prostate cancer\.br\ The stages of prostate cancer are as follows:\.br\ ? \.br\ Stage 1 (I). At this stage, the cancer is found in the prostate only. The cancer is not visible on imaging tests, and it is usually found by accident, such as during prostate surgery.\.br\ ? \.br\ Stage 2 (II). At this stage, the cancer is more advanced than it is in stage 1, but the cancer has not spread outside the prostate.\.br\ ? \.br\ Stage 3 (III). At this stage, the cancer has spread beyond the outer layer of the prostate to nearby tissues. The cancer may be found in the seminal vesicles, which are near the bladder and the prostate.\.br\ ? \.br\ Stage 4 (IV). At this stage, the cancer has spread to other parts of the body, such as the lymph nodes, bones, bladder, rectum, liver, or lungs.\.br\ Prostate cancer grading\.br\ Prostate cancer is also graded according to how the cancer cells look under a microscope. This is called the Gosia score and the total score can range from 6?10, indicating how likely it is that the cancer will spread (metastasize) to other parts of the body. The higher the score, the greater the likelihood that the cancer will spread.\.br\ ? \.br\ [place] 6 or lower: This indicates that the cancer cells look similar to normal prostate cells (well differentiated ).\.br\ ? \.br\ [place] 7: This indicates that the cancer cells look somewhat similar to normal prostate cells (moderately differentiated ).\.br\ ? \.br\ [place] 8, 9, or 10: This indicates that the cancer cells look very different than normal prostate cells (poorly differentiated ).\.br\ How is this treated?\.br\ Treatment for this condition depends on several factors, including the stage of the cancer, your age, personal preferences, and your overall health. Talk with your health care provider about treatment options that are recommended for you. Common treatments include:\.br\ ? \.br\ Observation for early stage prostate cancer (active surveillance). This involves having exams, blood tests, and in some cases, more biopsies. For some men, this is the only treatment needed.\.br\ ? \.br\ Surgery. Types of surgeries include:\.br\ ? \.br\ Open surgery (radical prostatectomy) . In this surgery, a larger incision is made to remove the prostate.\.br\ ? \.br\ A laparoscopic radical prostatectomy. This is a surgery to remove the prostate and lymph nodes through several small incisions. It is often referred to as a minimally invasive surgery.\.br\ ? \.br\ A robotic radical prostatectomy. This is laparoscopic surgery to remove the prostate and lymph nodes with the help of robotic arms that are controlled by the surgeon.\.br\ ? \.br\ Cryoablation. This is geovani [facility] CNPNon 11-29-2022 CNPN Normal [facility] Patient Educationon 11-30-19 Patient Education Oncology Prostate Cancer The prostate is a small gland that produces fluid that makes up semen (seminal fluid). It is located below the bladder in men, in front of the rectum. Prostate cancer is the abnormal growth of cells in the prostate gland. What are the causes? The exact cause of this condition is not known. What increases the risk? You are more likely to develop this condition if: ? You are 65 years of age or older. ? You have a family history of prostate cancer. ? You have a family history of breast and ovarian cancer. ? You have genes that are passed from parent to child (inherited), such as BRCA1 and BRCA2. ? You have Nelson syndrome. men and men of descent are diagnosed with prostate cancer at higher rates than other men. The reasons for this are not well understood and are likely due to a combination of genetic and environmental factors. What are the signs or symptoms? Symptoms of this condition include: ? Problems with urination. This may include: ? A weak or interrupted flow of urine. ? Trouble starting or stopping urination. ? Trouble emptying the bladder all the way. ? The need to urinate more often, especially at night. ? Blood in urine or semen. ? Persistent pain or discomfort in the lower back, lower abdomen, or hips. ? Trouble getting an erection. ? Weakness or numbness in the legs or feet. How is this diagnosed? This condition can be diagnosed with: ? A digital rectal exam. For this exam, a health care provider inserts a gloved finger into the rectum to feel the prostate gland. ? A blood test called a prostate-specific antigen (PSA) test. ? A procedure in which a sample of tissue is taken from the prostate and checked under a microscope (prostate biopsy). ? An imaging test called transrectal ultrasonography. Once the condition is diagnosed, tests will be done to determine how far the cancer has spread. This is called staging the cancer. Staging may involve imaging tests, such as a bone scan, CT scan, PET scan, or MRI. Stages of prostate cancer The stages of prostate cancer are as follows: ? Stage 1 (I). At this stage, the cancer is found in the prostate only. The cancer is not visible on imaging tests, and it is usually found by accident, such as during prostate surgery. ? Stage 2 (II). At this stage, the cancer is more advanced than it is in stage 1, but the cancer has not spread outside the prostate. ? Stage 3 (III). At this stage, the cancer has spread beyond the outer layer of the prostate to nearby tissues. The cancer may be found in the seminal vesicles, which are near the bladder and the prostate. ? Stage 4 (IV). At this stage, the cancer has spread to other parts of the body, such as the lymph nodes, bones, bladder, rectum, liver, or lungs. Prostate cancer grading Prostate cancer is also graded according to how the cancer cells look under a microscope. This is called the [place] score and the total score can range from 6?10, indicating how likely it is that the cancer will spread (metastasize) to other parts of the body. The higher the score, the greater the likelihood that the cancer will spread. ? Gosia 6 or lower: This indicates that the cancer cells look similar to normal prostate cells (well differentiated). ? Gosia 7: This indicates that the cancer cells look somewhat similar to normal prostate cells (moderately differentiated). ? Gosia 8, 9, or 10: This indicates that the cancer cells look very different than normal prostate cells (poorly differentiated). How is this treated? Treatment for this condition depends on several factors, including the stage of the cancer, your age, personal preferences, and your overall health. Talk with your health care provider about treatment options that are recommended for you. Common treatments include: ? Observation for early stage prostate cancer (active surveillance). This involves having exams, blood tests, and in some cases, more biopsies. For some men, this is the only treatment needed. ? Surgery. Types of surgeries include: ? Open surgery (radical prostatectomy). In this surgery, a larger incision is made to remove the prostate. ? A laparoscopic radical prostatectomy. This is a surgery to remove the prostate and lymph nodes through several small incisions. It is often referred to as a minimally invasive surgery. ? A robotic radical prostatectomy. This is laparoscopic surgery to remove the prostate and lymph nodes with the help of robotic arms that are controlled by the surgeon. ? Cryoablation. This is surgery to freeze and destroy cancer cells. ? Radiation treatment. Types of radiation treatment include: ? External beam radiation. This type aims beams of radiation from outside the body at the prostate to destroy cancerous cells. ? Brachytherapy. This type uses radioactive needles, seeds, wires, or tubes that are implanted into the prostate gland. Like external be (more content not included)... Normal [facility] Urology Office/Clinic Noteon 11-29-2022 Urology Office/Clinic Note Chief Complaint prostate cancer metastatic to bone HPI Staff 6 month f/u with PSA and Lupron injection. Previous dx of prostate cancer metastatic to bone, and BPH. Current PSA done 11/19/22 is 373.05 and previous done 05/26/22 was 381.92. Pt continues taking Tamsulosin 0.4 mg BID. Dysuria: no Incomplete bladder emptying: no Hematuria: no Frequency: no Urgency: no Nocturia: 2x Stream: good no straining or intermittency Leaking: no Post void dripping: no Wearing pads/ Depends: no Urge incontinence: no Stress incontinence: no Incontinence without Sensory Awareness: no Abdominal pain: no Flank pain: no Sexual complaints: no History of Present Illness Tests reviewed: reviewed UA, PSA I have reviewed the previous health record information and history for this patient from Dr. Muller. I have reviewed and verified the staff HPI to be accurate for this encounter. There have been no associated fever, chills, flank pain, or blood in the urine. Denies any urinary infections since last encounter. Review of Systems PHQ Score Initial Depression Screen Score: 0 ROS - Provider Constitutional: denies weight loss, denies hot flashes. Eyes: denies eye problems. Gastrointestinal: denies nausea, denies vomiting. Cardiovascular: denies chest pain or angina. Integumentary: no dryness Musculoskeletal: denies musculoskeletal symptoms. ENMT: denies otolaryngeal symptoms. Respiratory: no shortness of breath. Heme/Lymph: denies easy bleeding tendency, denies easy bruising tendency. Psychiatric: no confusion, no anxiety. Genitourinary: See HPI. Physical Exam Vitals & Measurements HR: 139(Peripheral) RR: 16 BP: 127/57 HT: 69 in HT: 175 cm WT: 58 kg WT: 127.6 lb BMI: 18.94 General Appearance: alert, no distress, well nourished, well developed male. Genitourinary: normal scrotum, normal testes, normal urethra, normal epididymis, normal vas deferens/spermatic cord. Flank Pain: none. Bladder: nonpalpable. Assessment/Plan 1. 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 Preliminary report from Dr. Whitmore shows Gosia score 4+5=9 in multiple cores. Bone scan done 12/09/21 shows diffuse and extensive bone metastasis. CT scan and CXR revealed no evidence of visceral metastases. PSA 05/26/22 - 381.92 04/08/22 - 320 11/19/22 - 373.05 Most recent testosterone level done 04/08/22 was <12 Pt took Casodex in the past. Pt continues zytiga/prednisone and IV Xgeva b9evdpir. Pt reports he has been experiencing pain. Discussed pt to try ibuprofen. Pt states he has an appt with Dr. Aldridge 12/21/22. Last Lupron given 06/04/22. Lupron 45 mgIM injection given today with no complications. Left glute. Pt denies side effects at this time. -Follow up in 6 months with Lupron injection or sooner if needed. Pt understands and agrees with plan. All questions/concerns were discussed. Pt to call the office if he encounters any issues prior. Pt acknowledges understanding. 2. BPH (benign prostatic hyperplasia) (N40.0: Benign prostatic hyperplasia without lower urinary tract symptoms) Pt continues taking Tamsulosin 0.4mg daily. UA today negative for blood and infection. Pt denies any urinary complications at this time. Follow-up With When Contact Information RENZO MCGARRY, Isa Son, URL In 6 months [facility] [address], [place] [address]- [phone] Additional Instructions: Patient Education Prostate Cancer I, Shannon Noriega, personally scribed for Dr. Muller on 11/29/2022 14:05:01. . Documentation recorded by the scribe, Shannon Noriega, accurately reflects the services(s) I performed and decisions made by me. Authenticated by Dr. Muller on 11/29/2022 14:06:35. Problem List/Past Medical History Ongoing Benign localized hyperplasia of prostate with urinary obstruction BPH (benign prostatic hyperplasia) BPH associated with nocturia Elevated PSA Ex-smoker Gross hematuria Hyperlipidemia Nocturia Prostate cancer Prostate cancer metastatic to bone Prostate lump Prostate nodule Urgency of urination Historical No qualifying data Procedure/Surgical History Transrectal needle biopsy of prostate (12/02/2021), Transrectal biopsy of prostate using ultrasound (US) guidance (08/22/2018), Transrectal biopsy of prostate using ultrasound (US) guidance (04/09/2009), Transrectal biopsy of prostate using ultrasound (US) guidance (02/18/2009), Angioplasty, Cataract extraction and insertion of intraocular lens, Colonoscopy, Tonsillectomy, Vasectomy. Medications abiraterone 250 mg oral tablet, 1000 mg= 4 tab(s), Oral, Daily Calcium 600 D Tab, Oral, BID denosumab, SubCutaneous predniSONE 10 mg Tab, Oral, Daily tamsulosin 0.4 mg Cap, 0.4 mg= 1 cap(s), Oral, BID, 3 refills Xtandi 80 mg oral tablet, Oral, Daily Allergies No Known Medication Allergies Social History Alcohol Current, (more content not included)... Normal [facility] Comment on above: Result Comment: Elec tronically Signed By: Isa MULLER MD\.br\Date and Time Signed: 11/29/22 14:06 EDT\.br\Electronically Co-Signed By: Shannon Noriega\.br\Date and Time Co-Signed: 11/29/22 14:05 EDT Consultation Noteon 11-23-19 Consultation Note [id number]#1.00CD:12 7 Normal [facility] CNOVSPon 11-15-2022 CNOVSP Normal [facility] CNPNon 11-12-2022 CNPN Normal [facility] CNPNon 11-05-2022 CNPN Normal [facility] NM PET/CT PROSTATE WBon 10-21 NM PET/CT PROSTATE WB Normal [facility] PSA SerPl-mCncon 11-03-2022 Prostate specific Ag [Mass/Vol] 359.90 ng/mL High <2.60 [facility] Comment on above: Order Comment: Speci men Type: BLOOD SPECIMENOrdering Facility: [facility] Address: [address] [place] [id number] Result Comment: Vonda bonilla PSA test methodology used is the Electrochemiluminescence Immunoassay by [employer]. Total PSA values by differing methodologies cannot be interchanged.For an individual patient, the significance of a PSA level should be interpreted in a broad clinical context, including age, race, family history, digital rectal exam, prostate size, results of prior testing (prostate biopsy, free PSA, PCA3), and use of 5-alpha reductase inhibitors. Considering the high incidence of asymptomatic cancer in the general population that may not pose an ultimate risk to a patient, the decision to recommend urological evaluation or prostate biopsy should be individualized after consideration of all these factors.REFERENCE:Ayla Arriaga M.D., M.P.H., Tl Betancourt M.D., Ph.D., Buster Church M.D., Lyubov Christiansen, M.P.H., Lawanda Ross, ScKate. Effect of Verification Bias on Screening for Prostate Cancer by Measurement of Prostatic Specific Antigen. N Engl J Med 2003,349:335-42. Performed By: #### 2 857-1 ####[facility] LABCLIA [id number] [facility] [id number] [place] Testost SerPl-mCncon 14- 023 Testosterone [Mass/Vol] 28 ng/dL Low 193-824 [facility] Comment on above: Order Comment: Speci men Type: BLOOD SPECIMENOrdering Facility: [facility] Address: [address] [place] [address] Result Comment: A te stosterone level in the 193-320 ng/dL range with associated clinical symptoms is considered low and may indicate hypogonadism (from NEJM 2010 363:123-135). Results >320 ng/dL are considered normal.Result rechecked. Performed By: #### 2 986-8 ####[facility] LABCLIA [id number] [facility] [place] [address] [place] CNCNPATEDon 10-26-2022 CNCNPATED Normal [facility] CNPNon 10-26-2022 CNPN Normal [facility] CNOVSPon 10-19-2022 CNOVSP Normal [facility] CNPNon 10-19-2022 CNPN Normal [facility] CBC W Auto Differential pane l (Bld)on 10-14-2022 Basophils (Bld) [#/Vol] 0.04 10*3/uL Normal <0.11 [facility] Comment on above: Order Comment: Speci men Type: BLOOD SPECIMENOrdering Facility: [facility] Address: [address] [address] Performed By: #### 5 7021-8 ####[facility] LABCLIA [id number] [place] [address] Basophils/100 WBC (Bld) 0.9 % Normal [facility] Comment on above: Order Comment: Speci men Type: BLOOD SPECIMENOrdering Facility: [facility] Address: [address] [address] Performed By: #### 5 7021-8 ####[facility] LABCLIA [id number] [place] [address] Differential cell count method Nom (Bld) Auto Normal [facility] Comment on above: Order Comment: Speci men Type: BLOOD SPECIMENOrdering Facility: [facility] Address: [address] [address] Performed By: #### 5 7021-8 ####[facility] LABCLIA [id number] [place] [address] Eosinophils (Bld) [#/Vol] 0.05 10*3/uL Normal <0.46 [facility] Comment on above: Order Comment: Speci men Type: BLOOD SPECIMENOrdering Facility: [facility] Address: [address] [address] Performed By: #### 5 7021-8 ####[facility] LABCLIA [id number] [place] [address] Eosinophils/100 WBC (Bld) 1.2 % Normal [facility] Comment on above: Order Comment: Speci men Type: BLOOD SPECIMENOrdering Facility: [facility] Address: [address] [place] [address] Performed By: #### 5 7021-8 ####[facility] LABCLIA [id number] [place] [address] Erythrocyte distribution width (RBC) [Ratio] 13.4 % Normal 11.5-15.0 [facility] Comment on above: Order Comment: Speci men Type: BLOOD SPECIMENOrdering Facility: [facility] Address: [address] [place] [address] Performed By: #### 5 7021-8 ####[facility] LABCLIA [id number] [place] [address] Hematocrit (Bld) [Volume fraction] 40.6 % Normal 39.0-51.0 [facility] Comment on above: Order Comment: Speci men Type: BLOOD SPECIMENOrdering Facility: [facility] Address: [address] [place] [address] Performed By: #### 5 7021-8 ####[facility] LABCLIA [id number] [place] [address] Hemoglobin (Bld) [Mass/Vol] 12.9 g/dL Low 13.0-17.0 [facility] Comment on above: Order Comment: Speci men Type: BLOOD SPECIMENOrdering Facility: [facility] Address: [address] [place] [address] Performed By: #### 5 7021-8 ####[facility] LABCLIA [id number] [place] [address] Immature granulocytes (Bld) [#/Vol] 10*3/uL Normal <0.10 [facility] Comment on above: Order Comment: Speci men Type: BLOOD SPECIMENOrdering Facility: [facility] Address: [address] [place] [address] Performed By: #### 5 7021-8 ####[facility] LABCLIA [id number] [place] [address] Immature granulocytes/100 WBC (Bld) 0.5 % Normal [facility] Comment on above: Order Comment: Speci men Type: BLOOD SPECIMENOrdering Facility: [facility] Address: [address] [place] [address] Performed By: #### 5 7021-8 ####[facility] LABIA [id number] [place] [address] Lymphocytes (Bld) [#/Vol] 0.72 10*3/uL Low 1.00-4.00 [facility] Comment on above: Order Comment: Speci men Type: BLOOD SPECIMENOrdering Facility: [facility] Address: [address] [place] [address] Performed By: #### 5 7021-8 ####[facility] LABIA [id number] [place] [address] Lymphocytes/100 WBC (Bld) 17.0 % Normal [facility] Comment on above: Order Comment: Speci men Type: BLOOD SPECIMENOrdering Facility: [facility] Address: [address] [place] [address] Performed By: #### 5 7021-8 ####[facility] LABCLIA [id number] [place] [address] MCH (RBC) [Entitic mass] 30.1 pg Normal 26.0-34.0 [facility] Comment on above: Order Comment: Speci men Type: BLOOD SPECIMENOrdering Facility: [facility] Address: [address] [place] [address] Performed By: #### 5 7021-8 ####[facility] LABCLIA [id number] [place] [address] MCHC (RBC) [Mass/Vol] 31.8 g/dL Normal 30.5-36.[address] [facility] Comment on above: Order Comment: Speci men Type: BLOOD SPECIMENOrdering Facility: [facility] Address: [address] [place] [address] Performed By: #### 5 7021-8 ####[facility] LABCLIA [id number] [place] [address] MCV (RBC) [Entitic vol] 94.9 fL Normal 80.0-100.0 [facility] Comment on above: Order Comment: Speci men Type: BLOOD SPECIMENOrdering Facility: [facility] Address: [address] [place] [address] Performed By: #### 5 7021-8 ####[facility] LABCLIA [id number] [place] [address] Monocytes (Bld) [#/Vol] 0.38 10*3/uL Normal <0.87 [facility] Comment on above: Order Comment: Speci men Type: BLOOD SPECIMENOrdering Facility: [facility] Address: [address] [place] [address] Performed By: #### 5 7021-8 ####[facility] LABCLIA [id number] [place] [address] Monocytes/100 WBC (Bld) 9.0 % Normal [facility] Comment on above: Order Comment: Speci men Type: BLOOD SPECIMENOrdering Facility: [facility] Address: [address] [place] [address] Performed By: #### 5 7021-8 ####[facility] LABIA [id number] [place] [address] Neutrophils (Bld) [#/Vol] 3.03 10*3/uL Normal 1.45-7.50 [facility] Comment on above: Order Comment: Speci men Type: BLOOD SPECIMENOrdering Facility: [facility] Address: [address] [address] Performed By: #### 5 7021-8 ####[facility] LABCLIA [id number] [place] [address] Neutrophils/100 WBC (Bld) 71.4 % Normal [facility] Comment on above: Order Comment: Speci men Type: BLOOD SPECIMENOrdering Facility: [facility] Address: [address] [place] [address] Performed By: #### 5 7021-8 ####[facility] LABCLIA [id number] [place] [address] Nucleated RBC (Bld) [#/Vol] 10*3/uL Normal <0.01 [facility] Comment on above: Order Comment: Speci men Type: BLOOD SPECIMENOrdering Facility: [facility] Address: [address] [place] [address] Performed By: #### 5 7021-8 ####[facility] LABCLIA [id number] [place] [address] Nucleated RBC/100 WBC (Bld) [Ratio] 0.0 /100 WBC Normal [facility] Comment on above: Order Comment: Speci men Type: BLOOD SPECIMENOrdering Facility: [facility] Address: [address] [place] [address] Performed By: #### 5 7021-8 ####[facility] LABCLIA [id number] [place] [address] Platelet mean volume (Bld) [Entitic vol] 9.0 fL Normal 9.0-12.7 [facility] Comment on above: Order Comment: Speci men Type: BLOOD SPECIMENOrdering Facility: [facility] Address: [address] [place] [address] Performed By: #### 5 7021-8 ####[facility] LABCLIA [id number] [place] [address] Platelets (Bld) [#/Vol] 235 10*3/uL Normal 150-400 [facility] Comment on above: Order Comment: Speci men Type: BLOOD SPECIMENOrdering Facility: [facility] Address: [address] [place] [address] Performed By: #### 5 7021-8 ####[facility] LABCLIA [id number] [place] [address] RBC (Bld) [#/Vol] 4.28 10*6/uL Normal 4.20-6.00 [facility] Comment on above: Order Comment: Speci men Type: BLOOD SPECIMENOrdering Facility: [facility] Address: [address] [place] [address] Performed By: #### 5 7021-8 ####[facility] LABIA [id number] [place] [address] WBC (Bld) [#/Vol] 4.24 10*3/uL Normal 3.70-11.00 [facility] Comment on above: Order Comment: Speci men Type: BLOOD SPECIMENOrdering Facility: [facility] Address: [address] [place] [address] Performed By: #### 5 7021-8 ####[facility] LABIA [id number] [place] [address] Comprehensive metabolic 2000 panelon 10-14-2022 Albumin [Mass/Vol] 4.4 g/dL Normal 3.9-4.[address] [facility] Comment on above: Order Comment: Speci men Type: BLOOD SPECIMENOrdering Facility: [facility] Address: [address] [place] [address] Performed By: #### 2 4323-8 ####[facility] LABIA [id number] [place] [address] ALP [Catalytic activity/Vol] 251 U/L High 38-113 [facility] Comment on above: Order Comment: Speci men Type: BLOOD SPECIMENOrdering Facility: [facility] Address: [address] [address] Performed By: #### 2 4323-8 ####[facility] LABCLIA [id number] [place] [address] ALT [Catalytic activity/Vol] 7 U/L Low 10-54 [facility] Comment on above: Order Comment: Speci men Type: BLOOD SPECIMENOrdering Facility: [facility] Address: [address] [address] Performed By: #### 2 4323-8 ####[facility] LABCLIA [id number] [place] [address] Anion gap [Moles/Vol] 10 mmol/L Normal 9-[address] [facility] Comment on above: Order Comment: Speci men Type: BLOOD SPECIMENOrdering Facility: [facility] Address: [address] [place] [address] Performed By: #### 2 4323-8 ####[facility] LABCLIA [id number] [place] [address] AST [Catalytic activity/Vol] 15 U/L Normal 14-40 [facility] Comment on above: Order Comment: Speci men Type: BLOOD SPECIMENOrdering Facility: [facility] Address: [address] [place] [address] Performed By: #### 2 4323-8 ####[facility] LABCLIA [id number] [place] [address] Bilirubin [Mass/Vol] 0.2 mg/dL Normal 0.2-1.3 [facility] Comment on above: Order Comment: Speci men Type: BLOOD SPECIMENOrdering Facility: [facility] Address: [address] [place] [address] Performed By: #### 2 4323-8 ####[facility] LABCLIA [id number] [place] [address] Calcium [Mass/Vol] 9.7 mg/dL Normal 8.5-10.[address] [facility] Comment on above: Order Comment: Speci men Type: BLOOD SPECIMENOrdering Facility: [facility] Address: [address] [place] [address] Performed By: #### 2 4323-8 ####[facility] LABCLIA [id number] [place] [address] Chloride [Moles/Vol] 102 mmol/L Normal 97-105 [facility] Comment on above: Order Comment: Speci men Type: BLOOD SPECIMENOrdering Facility: [facility] Address: [address] [place] [address] Performed By: #### 2 4323-8 ####[facility] LABCLIA [id number] [place] [address] CO2 [Moles/Vol] 26 mmol/L Normal 22-30 [facility] Comment on above: Order Comment: Speci men Type: BLOOD SPECIMENOrdering Facility: [facility] Address: [address] [place] [address] Performed By: #### 2 4323-8 ####[facility] LABCLIA [id number] [place] [address] Creatinine [Mass/Vol] 0.95 mg/dL Normal 0.73-1.[address] [facility] Comment on above: Order Comment: Speci men Type: BLOOD SPECIMENOrdering Facility: [facility] Address: [address] [place] [address] Performed By: #### 2 4323-8 ####[facility] LABIA [id number] [place] [address] ESTIMATED GLOMERULAR FILTRATION RATE 80 mL/min/1.73m??? Normal >=60 [facility] Comment on above: Order Comment: Speci men Type: BLOOD SPECIMENOrdering Facility: [facility] Address: [address] [place] [address] Result Comment: Christelle mated Glomerular Filtration Rate (eGFR) is calculated using the 2020 CKD-EPI creatinine equation. This equation utilizes serum creatinine, sex, and age as parameters. The creatinine assay has traceable calibration to isotope dilution-mass spectrometry. Refer to KDIGO guidelines for clinical interpretation. In patients with unstable renal function, e.g. those with acute kidney injury, the eGFR may not accurately reflect actual GFR. Performed By: #### 2 4323-8 ####[facility] LABCLIA [id number] [place] [address] Glucose [Mass/Vol] 101 mg/dL High 74-[address] [facility] Comment on above: Order Comment: Spectwan tovar Type: BLOOD SPECIMENOrdering Facility: [facility] Address: [place] [address] Result Comment: The [place] [employer] (ADA) provides guidance for cutoff values for fasting glucose and random glucose. The ADA defines fasting as no caloric intake for at least 8 hours. Fasting plasma glucose results between 100 to 125 mg/dL indicate increased risk for diabetes (prediabetes).Fasting plasma glucose results greater than or equal to 126 mg/dL meet the criteria for diagnosis of diabetes. In the absence of unequivocal hyperglycemia, results should be confirmed by repeat testing. In a patient with classic symptoms of hyperglycemia or hyperglycemic crisis, random plasma glucose results greater than or equal to 200 mg/dL meet the criteria for diagnosis of diabetes.Reference: Standards of Medical Care in Diabetes 2016, [place] [employer]. Diabetes Care. 2016.39(Suppl 1). Performed By: #### 2 4323-8 ####[facility] LABCLIA [id number] [place] [address] Potassium [Moles/Vol] 4.9 mmol/L Normal 3.7-5.[address] [facility] Comment on above: Order Comment: Vicki tovar Type: BLOOD SPECIMENOrdering Facility: [facility] Address: [place] [address] Performed By: #### 2 4323-8 ####[facility] LABCLIA [id number] [place] [address] Protein [Mass/Vol] 6.9 g/dL Normal 6.3-8.[address] [facility] Comment on above: Order Comment: Speci men Type: BLOOD SPECIMENOrdering Facility: [facility] Address: [address] [place] [address] Performed By: #### 2 4323-8 ####[facility] LABCLIA [id number] [place] [address] Sodium [Moles/Vol] 138 mmol/L Normal 136-[address] [facility] Comment on above: Order Comment: Speci men Type: BLOOD SPECIMENOrdering Facility: [facility] Address: [address] [place] [address] Performed By: #### 2 4323-8 ####[facility] [facility] LABCLIA [id number] [place] [address] Urea nitrogen [Mass/Vol] 14 mg/dL Normal 9-24 [facility] Comment on above: Order Comment: Speci men Type: BLOOD SPECIMENOrdering Facility: [facility] Address: [address] [place] [address] Performed By: #### 2 4323-8 ####[facility] LABCLIA [id number] [place] [address] [facility] Prostate specific Ag [Mass/Vol] 313.70 ng/mL High <2.60 [facility] Comment on above: Order Comment: Speci men Type: BLOOD SPECIMENOrdering Facility: [facility] Address: [address] [place] [address] Result Comment: Tota l PSA test methodology used is the Electrochemiluminescence Immunoassay by [employer]. Total PSA values by differing methodologies cannot be interchanged.For an individual patient, the significance of a PSA level should be interpreted in a broad clinical context, including age, race, family history, digital rectal exam, prostate size, results of prior testing (prostate biopsy, free PSA, PCA3), and use of 5-alpha reductase inhibitors. Considering the high incidence of asymptomatic cancer in the general population that may not pose an ultimate risk to a patient, the decision to recommend urological evaluation or prostate biopsy should be individualized after consideration of all these factors.REFERENCE:Ayla Arriaga M.D., M.P.H., Tl Betancourt M.D., Ph.D., Buster Church M.D., Lyubov Christiansen M.P.H., Lawanda Ross ScKate. Effect of Verification Bias on Screening for Prostate Cancer by Measurement of Prostatic Specific Antigen. N Engl J Med 2003,349:335-42. Performed By: #### 2 857-1 ####[facility] LABCLIA [id number] [address] [place] CNPNon 10-04-2022 CNPN Normal [facility] Covid-19 PCR (CVDTBH)on 06-24 SARS-CoV-2 (COVID-19) RNA TAJ+probe Ql (Unsp spec) Not detected Normal NOT DETECTED [facility] Comment on above: Result Comment: When diagnostic testing is negative, the possibility of a false negative should be considered in the context of a patient's recent exposures and the presence of clinical signs and symptoms consistent with SARS-CoV-2. This test is not yet approved or cleared by the [place] FDA. When there are no FDA-approved or cleared tests available, and other criteria are met, FDA can make tests available under an emergency access mechanism called an Emergency Use Authorization (EUA). The EUA for this test is supported by the [employer] of Health and Human Service's declaration that circumstances exist to justify the emergency use of in vitro diagnostics for the detection and/or diagnosis of the virus that causes COVID-19. This EUA will remain in effect for the duration of the COVID-19 declaration justifying emergency of IVDs, unless it is terminated or revoked by the FDA (after which the test may no longer be used). Performed By: #### C BC #### [facility] [address] [place] [address] Dr. Garo Whitmore INFLUENZA A AND B AGon 07-19 INFLUANEGH SEE BELOW Normal [facility] Comment on above: Result Comment: Nega tive for Flu A protein angiten. Infection due to Flu A cannot be ruled out. Flu A angiten in the sample may be below the detection limit of the test. Performed By: #### I NFLUAB #### [facility] [address] [place] [address] Dr. Garo Whitmore INFLUBNEG SEE BELOW Normal [facility] Comment on above: Result Comment: Nega tive for Flu B protein antigen. Infection due to Flu B cannot be ruled out. Flu B antigen in the sample may be below the detection limit of the test. Performed By: #### I NFLUAB #### [facility] [address] [place] [address] Dr. Garo Whitmore INFLUENZA A AG Negative Normal NEGATIVE SEE COMMENT [facility] Comment on above: Performed By: #### I NFLUAB #### [facility] [address] [place] [address] Dr. Garo Whitmore INFLUENZA B AG Negative Normal NEGATIVE SEE COMMENT [facility] Comment on above: Performed By: #### I NFLUAB #### [facility] [address] [place] [address] Dr. Garo Whitmore XR CHEST 2 Von 07-19-2022 XR CHEST 2 V EXAM: XR CHEST 2 V HISTORY: Shortness of breath and cough COMPARISON: 11/24/2021. 12/09/2021. TECHNIQUE: PA and lateral upright views of the chest FINDINGS: Lungs are well-expanded and clear. No pleural effusion or pneumothorax. Stable mild cardiomegaly. Thoracic spondylosis without acute bony process. 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 No interval acute cardiopulmonary process. Electronically authenticated by: SANDRA LOTT Date: 2022-07-19 16:19 Normal [facility] CBC W Auto Differential pane l (Bld)on 12-24-2021 Abs Immature Gran 0.05 k/uL <0.10 k/uL [facility] Basophils (Bld) [#/Vol] 0.05 10*3/uL <0.11 k/uL [facility] Basophils/100 WBC (Bld) 0.8 % [facility] Differential cell count method Nom (Bld) Auto [facility] Eosinophils (Bld) [#/Vol] 0.09 10*3/uL <0.46 k/uL [facility] Eosinophils/100 WBC (Bld) 1.5 % [facility] Erythrocyte distribution width (RBC) [Ratio] 13.6 % 11.5 - 15.0 % [facility] Hematocrit (Bld) [Volume fraction] 37.7 % Low 39.0 - 51.0 % [facility] Hemoglobin (Bld) [Mass/Vol] 12.0 g/dL Low 13.0 - 17.0 g/dL [facility] Immature Gran % 0.8 % [facility] Lymphocytes (Bld) [#/Vol] 1.12 10*3/uL 1.00 - 4.00 k/uL [facility] Lymphocytes/100 WBC (Bld) 18.1 % [facility] MCH (RBC) [Entitic mass] 29.5 pg 26.0 - 34.0 pg [facility] MCHC (RBC) [Mass/Vol] 31.8 g/dL 30.5 - 36.0 g/dL [facility] MCV (RBC) [Entitic vol] 92.6 fL 80.0 - 100.0 fL [facility] Monocytes (Bld) [#/Vol] 0.47 10*3/uL <0.87 k/uL [facility] Monocytes/100 WBC (Bld) 7.6 % [facility] Neutrophils (Bld) [#/Vol] 4.40 10*3/uL 1.45 - 7.50 k/uL [facility] Neutrophils/100 WBC (Bld) 71.2 % [facility] Nucleated RBC (Bld) [#/Vol] 10*3/uL <0.01 k/uL [facility] Nucleated RBC/100 WBC (Bld) [Ratio] 0.0 /100 WBC [facility] Platelet mean volume (Bld) [Entitic vol] 8.4 fL Low 9.0 - 12.7 fL [facility] Platelets (Bld) [#/Vol] 228 10*3/uL 150 - 400 k/uL [facility] RBC (Bld) [#/Vol] 4.07 10*6/uL Low 4.20 - 6.0 0 m/uL [facility] WBC (Bld) [#/Vol] 6.18 10*3/uL 3.70 - 11. 00 k/uL [facility] Comprehensive metabolic 2000 panelon 12-24-2021 Albumin [Mass/Vol] 3.8 g/dL Low 3.9 - 4.9 g/dL [facility] ALP [Catalytic activity/Vol] 838 U/L High 38 - 113 U/L [facility] ALT [Catalytic activity/Vol] 11 U/L 10 - 54 U/L [facility] Anion gap [Moles/Vol] 8 mmol/L Low 9 - 18 mmol/L [facility] AST [Catalytic activity/Vol] 14 U/L 14 - 40 U/L [facility] Bilirubin [Mass/Vol] 0.2 mg/dL 0.2 - 1 .3 mg/dL [facility] Calcium [Mass/Vol] 8.9 mg/dL 8.5 - 10. 2 mg/dL [facility] Chloride [Moles/Vol] 104 mmol/L 97 - 10 5 mmol/L [facility] CO2 [Moles/Vol] 29 mmol/L 22 - 30 mmol/L [facility] Creatinine [Mass/Vol] 1.06 mg/dL 0.73 - 1.22 mg/dL [facility] Estimated Glomerular Filtration Rate 70 mL/min/1.73m >=60 mL/min/1.73m [facility] Glucose [Mass/Vol] 79 mg/dL 74 - 99 mg/dL [facility] Potassium [Moles/Vol] 4.0 mmol/L 3.7 - 5.1 mmol/L [facility] Protein [Mass/Vol] 6.3 g/dL 6.3 - 8.0 g/dL [facility] Sodium [Moles/Vol] 141 mmol/L 136 - 144 mmol/L [facility] Urea nitrogen [Mass/Vol] 18 mg/dL 9 - 24 mg/dL [facility] PSA/PROSTSPECAG DIAGon 12-24 Prostate specific Ag [Mass/Vol] 792.60 ng/mL High <2.60 ng/mL [facility] CULTURE URINEon 12-11-2021 CULTURE URINE Culture Observations : NO GROWTH. Normal [facility] Comment on above: Performed By: #### U MICRO, ERUR #### [facility] [address] [place] [address] Dr. Garo RAMOS URINE PROFILEon 2 Bilirubin Ql (U) Negative Normal NEGATIVE [facility] Comment on above: Performed By: #### Rylee QUISPE UMICRO #### [facility] [address] [place] [address] Dr. Garo Whitmore Clarity (U) CLEAR Normal CLEAR [facility] Comment on above: Performed By: #### Rylee QUISPE UMICRO #### [facility] [address] [place] [address] Dr. Garo Whitmore Color (U) LT. YELLOW Normal YELLOW [facility] Comment on above: Performed By: #### Rylee QUISPE UMICRO #### [facility] [address] [place] [address] Dr. Garo Whitmore ERUVALORIE A micrscopic examina tion will be performed if indicated. Normal [facility] Comment on above: Performed By: #### Rylee QUISPE UMICRO #### [facility] [address] [place] [address] Dr. Garo Whitmore Glucose Ql (U) Negative Normal NEGATIVE [facility] Comment on above: Performed By: #### Rylee QUISPE UMICRO #### [facility] [address] [place] [address] Dr. Garo Whitmore Hemoglobin Ql (U) TRACE-INTACT Abnormal NEGATIVE [facility] Comment on above: Performed By: #### Rylee QUISPE UMICRO #### [facility] [address] [place] [address] Dr. Garo Whitmore Ketones Ql (U) Negative Normal NEGATIVE [facility] Comment on above: Performed By: #### Rylee QUISPE UMICRO #### [facility] [address] [place] [address] Dr. Garo Whitmore LEUKOCYTES Negative Normal NEGATIVE [facility] Comment on above: Performed By: #### Rylee QUISPE UMICRO #### [facility] [address] [place] [address] Dr. Garo Whitmore Nitrite Ql (U) Negative Normal NEGATIVE [facility] Comment on above: Performed By: #### Rylee QUISPE UMICRO #### [facility] [address] [place] [address] Dr. Garo Whitmore pH (U) 6.0 [pH] Normal 5-9 [facility] Comment on above: Performed By: #### CARRIE JON #### [facility] [address] [place] [address] Dr. Garo Whitmore SPEC GRAVITY <=1.005 Abnormal 1.005-<=1.025 [facility] Comment on above: Performed By: #### BLAKE JONRO #### [facility] [address] [place] [address] Dr. Garo Whitmore UA PROTEIN Negative Normal NEGATIVE/ TRACE [facility] Comment on above: Performed By: #### CARRIE JON #### [facility] [address] [place] [address] Dr. Garo Whitmore UR MICRO IND INDICATED Normal [facility] Comment on above: Performed By: #### CARRIE JON #### [facility] [address] [place] [address] Dr. Garo Whitmore Urobilinogen Qn (U) 0.2 {Jesús'U}/dL Normal 0.2 - 1. 0 [facility] Comment on above: Performed By: #### BLAKE JONRO #### [facility] [address] [place] [address] Dr. Garo Whitmore URINE MICROSCOPIC ONLYon BACTERIA NONE SEEN Normal NONE SEEN [facility] Comment on above: Performed By: #### BLAKE JONRO #### [facility] [address] [place] [address] Dr. Garo Whitmore Bacteria identified Cx Nom (U) NOT INDICATED Normal [facility] Comment on above: Performed By: #### BLAKE JONRO #### [facility] [address] [place] [address] Dr. Garo Whitmore CAST NONE SEEN Normal NONE SEEN [facility] Comment on above: Performed By: #### CARRIE JON #### [facility] [address] [place] [address] Dr. Garo Whitmore Crystals LM Nom (Urine sed) NONE SEEN Normal NONE SEEN [facility] Comment on above: Performed By: #### E RUR, UMICRO #### [facility] [address] [place] [address] Dr. Garo Whitmore Epithelial cells LM Ql (Urine sed) NONE SEEN Normal NONE SEEN /RARE [facility] Comment on above: Performed By: #### E RUR, UMICRO #### [facility] [address] [place] [address] Dr. Garo Whitmore MUCOUS NONE SEEN Normal NONE SEEN [facility] Comment on above: Performed By: #### E RUR, UMICRO #### [facility] [address] [place] [address] Dr. Garo Whitmore RBC 0-2 Normal 0-2 [facility] Comment on above: Performed By: #### E RUR, UMICRO #### [facility] [address] [place] [address] Dr. Garo Whitmore WBC NONE SEEN Normal NONE SEEN [facility] Comment on above: Performed By: #### E RUR, UMICRO #### [facility] [address] [place] [address] Dr. Garo Whitmore NM BONE SC WH BODYon 022 TX BONE [facility] BODY NUCLEAR MEDICINE TOT AL BODY BONE SCAN HISTORY: Prostate carcinoma. COMPARISON: CT abdomen and pelvis 11/24/2021. METHOD: The patient was injected intravenously with 25 mCi of Tc-99m MDP, scintigraphy of the entire skeleton was performed more than three hours later. FINDINGS: There is diffuse and extensive abnormal foci of increased uptake throughout the bones including the spine, ribs, pelvis, calvarium, scapulae, humeri, manubrium, sternum and femurs. IMPRESSION: Diffuse and extensive bone metastasis. Electronically authenticated by: CITLALI STALLWORTH Date: 2021-12-09 17:59 Normal [facility] CBC AUTO DIFFon 11-28-2021 BASO # 0.0 103/ul Normal 0.0-0.1 [facility] Comment on above: Performed By: #### C BC #### [facility] [address] [place] [address] Dr. Garo Whitmore Basophils/100 WBC (Bld) 0.7 % Normal 0.2-2.0 [facility] Comment on above: Performed By: #### C BC #### [facility] [address] [place] [address] Dr. Garo Whitmore EO # 0.0 103/ul Normal 0.0-0.7 [facility] Comment on above: Performed By: #### C BC #### [facility] [address] [place] [address] Dr. Garo Whitmore Eosinophils/100 WBC (Bld) 1.0 % Normal 0.9-7.0 [facility] Comment on above: Performed By: #### C BC #### [facility] [address] [place] [address] Dr. Garo Whitmore Erythrocyte distribution width (RBC) [Ratio] 12.4 % Normal 11.0-15.0 [facility] Comment on above: Performed By: #### C BC #### [facility] [address] [place] [address] Dr. Garo Whitmore Hematocrit (Bld) [Volume fraction] 42.7 % Normal 42.0-54.0 [facility] Comment on above: Performed By: #### C BC #### [facility] [address] [place] [address] Dr. Garo Whitmore Hemoglobin (Bld) [Mass/Vol] 13.7 g/dL Critically low 14.0-18.0 [facility] Comment on above: Performed By: #### C BC #### [facility] [address] [place] [address] Dr. Garo Whitmore IG # 0.03 10e3/ul Normal 0.00-0.03 [facility] Comment on above: Performed By: #### C BC #### [facility] [address] [place] [address] Dr. Garo Whitmore IG % 0.7 % Critically high 0.0-0.5 [facility] Comment on above: Performed By: #### C BC #### [facility] [address] [place] [address] Dr. Garo Whitmore LYMPH # 0.6 103/ul Critically low 1.2-3.8 [facility] Comment on above: Performed By: #### C BC #### [facility] [address] [place] [address] Dr. Garo Whitmore Lymphocytes/100 WBC (Bld) 14.9 % Critically low 20.5-60.0 [facility] Comment on above: Performed By: #### C BC #### [facility] [address] [place] [address] Dr. Garo Whitmore MANUAL DIFF REQ NO Normal [facility] Comment on above: Performed By: #### C BC #### [facility] [address] [place] [address] Dr. Garo Whitmore MCH (RBC) [Entitic mass] 29.7 pg Normal 25.9-34.0 [facility] Comment on above: Performed By: #### C BC #### [facility] [address] [place] [address] Dr. Garo Whitmore MCHC (RBC) [Mass/Vol] 32.1 g/dL Normal 29.9-35.2 [facility] Comment on above: Performed By: #### C BC #### [facility] [address] [place] [address] Dr. Garo Whitmore MCV (RBC) [Entitic vol] 92.4 fL Normal 80.0-94.0 [facility] Comment on above: Performed By: #### C BC #### [facility] [address] [place] [address] Dr. Garo Whitmore MONO # 0.2 103/ul Critically low 0.3-0.8 [facility] Comment on above: Performed By: #### C BC #### [facility] [address] [place] [address] Dr. Garo Whitmore Monocytes/100 WBC (Bld) 5.9 % Normal 1.7-12.0 [facility] Comment on above: Performed By: #### C BC #### [facility] [address] [place] [address] Dr. Garo Whitmore NEUT # 3.2 103/ul Normal 1.4-6.5 [facility] Comment on above: Performed By: #### C BC #### [facility] [address] [place] [address] Dr. Garo Whitmore Neutrophils/100 WBC (Bld) 76.8 % Critically high 43.0-75.0 [facility] Comment on above: Performed By: #### C BC #### [facility] [address] [place] [address] Dr. Garo Whitmore Platelet mean volume (Bld) [Entitic vol] 8.6 fL Critically low 9.5-13.5 [facility] Comment on above: Performed By: #### C BC #### [facility] [address] [place] [address] Dr. Garo Whitmore PLT 360 103/ul Normal 150-450 [facility] Comment on above: Performed By: #### C BC #### [facility] [address] [place] [address] Dr. Garo Whitmore RBC 4.62 106/ul Critically low 4.70-6.10 [facility] Comment on above: Performed By: #### C BC #### [facility] [address] [place] [address] Dr. Garo Whitmore WBC 4.1 103/ul Normal 4.0-11.0 [facility] Comment on above: Performed By: #### C BC #### [facility] [address] [place] [address] Dr. Garo Whitmore ER URINE PROFILEon 2 Bilirubin Ql (U) Negative Normal NEGATIVE [facility] Comment on above: Performed By: #### U MICRO, ERUR #### [facility] [address] [place] [address] Dr. Garo Whitmore Clarity (U) CLEAR Normal CLEAR [facility] Comment on above: Performed By: #### U MICRO, ERUR #### [facility] [address] [place] [address] Dr. Garo Whitmore Color (U) LT. YELLOW Normal YELLOW [facility] Comment on above: Performed By: #### U MICRO, ERUR #### [facility] [address] [address] [address] Garo FREDERICK A micrscopic examina tion will be performed if indicated. Normal [facility] Comment on above: Performed By: #### U MICRO, ERUR #### [facility] [address] [place] [address] Dr. Garo Whitmore Glucose Ql (U) Negative Normal NEGATIVE [facility] Comment on above: Performed By: #### U MICRO, ERUR #### [facility] [address] [address] [address] Garo Whitmore Hemoglobin Ql (U) TRACE-LYSED Abnormal NEGATIVE [facility] Comment on above: Performed By: #### U MICRO, ERUR #### [facility] [address] [place] [address] Dr. Garo Whitmore Ketones Ql (U) Negative Normal NEGATIVE [facility] Comment on above: Performed By: #### U MICRO, ERUR #### [facility] [address] [place] [address] Dr. Garo Whitmore LEUKOCYTES Negative Normal NEGATIVE [facility] Comment on above: Performed By: #### U MICRO, ERUR #### [facility] [address] [address] [address] Garo Whitmore Nitrite Ql (U) Negative Normal NEGATIVE [facility] Comment on above: Performed By: #### U MICRO, ERUR #### [facility] [address] [place] [address] Dr. Garo Whitmore pH (U) 6.0 [pH] Normal 5-9 [facility] Comment on above: Performed By: #### U MICRO, ERUR #### [facility] [address] [address] [address] Garo Whitmore SPEC GRAVITY <=1.005 Abnormal 1.005-<=1.025 [facility] Comment on above: Performed By: #### U MICRO, ERUR #### [facility] [address] [place] [address] Dr. Garo Whitmore UA PROTEIN Negative Normal NEGATIVE/ TRACE [facility] Comment on above: Performed By: #### U MICRO, ERUR #### [facility] [address] [address] [address] Garo Whitmore UR MICRO IND INDICATED Normal [facility] Comment on above: Performed By: #### U MICRO, ERUR #### [facility] [address] [address] [address] Garo Whitmore Urobilinogen Qn (U) 0.2 {Jesús'U}/dL Normal 0.2 - 1. 0 [facility] Comment on above: Performed By: #### U MICRO, ERUR #### [facility] [address] [place] [address] Dr. Garo Whitmore PROF 14(COMP METB)on 022 Albumin [Mass/Vol] 2.8 g/dL Critically low 3.4-5.0 [facility] Comment on above: Performed By: #### C MP #### [facility] [address] [place] [address] Dr. Garo Whitmore Albumin/Globulin [Mass ratio] 0.5 {ratio} Normal [facility] Comment on above: Performed By: #### C MP #### [facility] [address] [place] [address] Dr. Garo Whitmore ALP [Catalytic activity/Vol] 765 U/L Critically high 46-116 [facility] Comment on above: Performed By: #### C MP #### [facility] [address] [place] [address] Dr. Garo Whitmore ALT [Catalytic activity/Vol] 45 U/L Normal 16-63 [facility] Comment on above: Performed By: #### C MP #### [facility] [address] [place] [address] Dr. Garo Whitmore Anion gap [Moles/Vol] 11.0 mmol/L Normal [facility] Comment on above: Performed By: #### C MP #### [facility] [address] [place] [address] Dr. Garo Whitmore AST [Catalytic activity/Vol] 39 U/L Critically high 15-37 [facility] Comment on above: Performed By: #### C MP #### [facility] [address] [address] [address] Garo Whitmore Bilirubin [Mass/Vol] 0.5 mg/dL Normal 0.2-1.0 [facility] Comment on above: Performed By: #### C MP #### [facility] [address] [address] [address] Garo Whitmore Calcium [Mass/Vol] 8.9 mg/dL Normal 8.5-10.1 [facility] Comment on above: Performed By: #### C MP #### [facility] [address] [address] [address] Garo Whitmore Chloride [Moles/Vol] 102 mmol/L Normal 98-107 [facility] Comment on above: Performed By: #### C MP #### [facility] [address] [address] [address] Garo Whitmore CO2 [Moles/Vol] 27.7 mmol/L Normal 21.0-32.0 [facility] Comment on above: Performed By: #### C MP #### [facility] [address] [address] [address] Garo Whitmore Creatinine [Mass/Vol] 1.04 mg/dL Normal 0.70-1.30 [facility] Comment on above: Performed By: #### C MP #### [facility] [address] [address] [address] Garo Whitmore EGFR-AF PANAMANIAN >60 Normal >=60 [facility] Comment on above: Performed By: #### C MP #### [facility] [address] [address] [address] Garo Whitmore EGFR-NON AF PANAMANIAN >60 Normal >=60 [facility] Comment on above: Performed By: #### C MP #### [facility] [address] [place] [address] Dr. Garo Whitmore Globulin (S) [Mass/Vol] 5.1 g/dL Normal [facility] Comment on above: Performed By: #### C MP #### [facility] [address] [address] [address] Garo Whitmore Glucose [Mass/Vol] 113 mg/dL Critically high 74-106 [facility] Comment on above: Performed By: #### C MP #### [facility] [address] [place] [address] Dr. Garo Whitmore Potassium [Moles/Vol] 3.7 mmol/L Normal 3.5-5.1 [facility] Comment on above: Performed By: #### C MP #### [facility] [address] [place] [address] Dr. Garo Whitmore Protein [Mass/Vol] 7.9 g/dL Normal 6.4-8.2 [facility] Comment on above: Performed By: #### C MP #### [facility] [address] [place] [address] Dr. Garo Whitmore Sodium [Moles/Vol] 137 mmol/L Normal 136-145 [facility] Comment on above: Performed By: #### C MP #### [facility] [address] [place] [address] Dr. Garo Whitmore Urea nitrogen [Mass/Vol] 12.0 mg/dL Normal 7.0-18.0 [facility] Comment on above: Performed By: #### C MP #### [facility] [address] [place] [address] Dr. Garo Whitmore Urea nitrogen/Creatinine [Mass ratio] 11.5 mg/mg Normal [facility] Comment on above: Performed By: #### C MP #### [facility] [address] [place] [address] Dr. Garo Whitmore URINE MICROSCOPIC ONLYon BACTERIA NONE SEEN Normal NONE SEEN [facility] Comment on above: Performed By: #### U MICRO, ERUR #### [facility] [address] [place] [address] Dr. Garo Whitmore Bacteria identified Cx Nom (U) NOT INDICATED Normal [facility] Comment on above: Performed By: #### U MICRO, ERUR #### [facility] [address] [place] [address] Dr. Garo Whitmore CAST NONE SEEN Normal NONE SEEN [facility] Comment on above: Performed By: #### U MICRO, ERUR #### [facility] [address] [place] [address] Dr. Garo Whitmore Crystals LM Nom (Urine sed) NONE SEEN Normal NONE SEEN [facility] Comment on above: Performed By: #### U MICRO, ERUR #### [facility] [address] [place] [address] Dr. Garo Whitmore Epithelial cells LM Ql (Urine sed) RARE Normal NONE SEEN /RARE [facility] Comment on above: Performed By: #### U MICRO, ERUR #### [facility] [address] [place] [address] Dr. Garo Whitmore MUCOUS NONE SEEN Normal NONE SEEN [facility] Comment on above: Performed By: #### U MICRO, ERUR #### [facility] [address] [place] [address] Dr. Garo Whitmore RBC NONE SEEN Abnormal 0-2 [facility] Comment on above: Performed By: #### U MICRO, ERUR #### [facility] [address] [place] [address] Dr. Garo Whitmore WBC NONE SEEN Normal NONE SEEN [facility] Comment on above: Performed By: #### U MICRO, ERUR #### [facility] [address] [place] [address] Dr. Garo Whitmore AMYLASEon 11-24-2021 Amylase [Catalytic activity/Vol] 21 U/L Critically low 25-115 [facility] Comment on above: Performed By: #### C BC #### [facility] [address] [place] [address] Dr. Garo Whitmore CBC AUTO DIFFon 11-24-2021 BASO # 0.0 103/ul Normal 0.0-0.1 [facility] Comment on above: Performed By: #### C BC #### [facility] [address] [place] [address] Dr. Gaor Whitmore Basophils/100 WBC (Bld) 0.3 % Normal 0.2-2.0 [facility] Comment on above: Performed By: #### C BC #### [facility] [address] [place] [address] Dr. Garo Whitmore EO # 0.0 103/ul Normal 0.0-0.7 [facility] Comment on above: Performed By: #### C BC #### [facility] [address] [place] [address] Dr. Garo Whitmore Eosinophils/100 WBC (Bld) 0.1 % Critically low 0.9-7.0 [facility] Comment on above: Performed By: #### C BC #### [facility] [address] [place] [address] Dr. Garo Whitmore Erythrocyte distribution width (RBC) [Ratio] 12.4 % Normal 11.0-15.0 [facility] Comment on above: Performed By: #### C BC #### [facility] [address] [place] [address] Dr. Garo Whitmore Hematocrit (Bld) [Volume fraction] 40.5 % Critically low 42.0-54.0 [facility] Comment on above: Performed By: #### C BC #### [facility] [address] [place] [address] Dr. Garo Whitmore Hemoglobin (Bld) [Mass/Vol] 13.3 g/dL Critically low 14.0-18.0 [facility] Comment on above: Performed By: #### C BC #### [facility] [address] [place] [address] Dr. Garo Whitmore IG # 0.05 10e3/ul Critically high 0.00-0.03 [facility] Comment on above: Performed By: #### C BC #### [facility] [address] [place] [address] Dr. Garo Whitmore IG % 0.6 % Critically high 0.0-0.5 [facility] Comment on above: Performed By: #### C BC #### [facility] [address] [place] [address] Dr. Garo Whitmore LYMPH # 0.5 103/ul Critically low 1.2-3.8 [facility] Comment on above: Performed By: #### C BC #### [facility] [address] [place] [address] Dr. Garo Whitmore Lymphocytes/100 WBC (Bld) 6.5 % Critically low 20.5-60.0 [facility] Comment on above: Performed By: #### C BC #### [facility] [address] [place] [address] Dr. Garo Whitmore MANUAL DIFF REQ NO Normal [facility] Comment on above: Performed By: #### C BC #### [facility] [address] [place] [address] Dr. Garo Whitmore MCH (RBC) [Entitic mass] 30.2 pg Normal 25.9-34.0 [facility] Comment on above: Performed By: #### C BC #### [facility] [address] [place] [address] Dr. Garo Whitmore MCHC (RBC) [Mass/Vol] 32.8 g/dL Normal 29.9-35.2 [facility] Comment on above: Performed By: #### C BC #### [facility] [address] [place] [address] Dr. Garo Whitmore MCV (RBC) [Entitic vol] 91.8 fL Normal 80.0-94.0 [facility] Comment on above: Performed By: #### C BC #### [facility] [address] [place] [address] Dr. Garo Whitmore MONO # 0.9 103/ul Critically high 0.3-0.8 [facility] Comment on above: Performed By: #### C BC #### [facility] [address] [place] [address] Dr. Garo Whitmore Monocytes/100 WBC (Bld) 11.4 % Normal 1.7-12.0 [facility] Comment on above: Performed By: #### C BC #### [facility] [address] [place] [address] Dr. Garo Whitmore NEUT # 6.3 103/ul Normal 1.4-6.5 [facility] Comment on above: Performed By: #### C BC #### [facility] [address] [place] [address] Dr. Garo Whitmore Neutrophils/100 WBC (Bld) 81.1 % Critically high 43.0-75.0 [facility] Comment on above: Performed By: #### C BC #### [facility] [address] [place] [address] Dr. Garo Whitmore Platelet mean volume (Bld) [Entitic vol] 8.8 fL Critically low 9.5-13.5 [facility] Comment on above: Performed By: #### C BC #### [facility] [address] [place] [address] Dr. Garo Whitmore PLT 270 103/ul Normal 150-450 [facility] Comment on above: Performed By: #### C BC #### [facility] [address] [place] [address] Dr. Garo Whitmore RBC 4.41 106/ul Critically low 4.70-6.10 [facility] Comment on above: Performed By: #### C BC #### [facility] [address] [place] [address] Dr. Grao Whitmore WBC 7.8 103/ul Normal 4.0-11.0 [facility] Comment on above: Performed By: #### C BC #### [facility] [address] [place] [address] ABD/PELV W CONon 11-25-19 CT ABD/PELV W CON EXAMINATION: CT ABD/ PELV W CON HISTORY: NAUSEA WITH VOMITING, UNSPECIFIED , acute weight loss, unable to eat COMPARISON: No relevant comparison available. TECHNIQUE: Axial, Coronal, and Sagittal images were created with IV contrast. Dose reduction techniques were achieved by using automated exposure control and/or adjustment of mA and/or kV according to patient size and/or use of iterative reconstruction technique. FINDINGS: LUNG BASES: No visible pulmonary or pleural disease. LIVER: Small cysts versus hemangioma within left lobe. No enlargement, atrophy, suspicious density, or significant focal lesion. BILIARY: No dilatation or calcification. PANCREAS: No lesion, fluid collection, or abnormal duct dilatation. SPLEEN: No enlargement or focal lesion. ADRENALS: No mass or enlargement. KIDNEYS: No mass, obstruction, or calcification. BOWEL/MESENTERY: Small hiatal hernia. No visible mass, obstruction, or bowel wall thickening. AORTA/VASCULAR: No aneurysm or dissection. RETROPERITONEUM: No mass or adenopathy. LYMPH NODES: No adenopathy. URINARY BLADDER: Circumferential wall thickening of the urinary bladder. PELVIC ORGANS: Enlarged heterogeneous prostate. ABDOMINAL WALL: No mass or hernia. BONES: Innumerable, subtle hyperdense lesions throughout the marrow cavity of the pelvis, femurs, and several vertebral bodies suspicious for metastatic disease. OTHER: Negative. IMPRESSION: 1. Unremarkable bowel. No acute findings to account for patient's symptoms. Incidental small hiatal hernia. 2. Wall thickening of urinary bladder likely due to muscular hypertrophy. Cystitis cannot be excluded. 3. Numerous skeletal lesions and enlarged prostate suggesting prostate cancer. Electronically authenticated by: COLTEN MASON Date: 2021-11-24 12:05 Normal [facility] CULTURE URINEon 11-24-2021 CULTURE URINE Culture Observations : NO GROWTH. Normal [facility] Comment on above: Performed By: #### U MICRO, ERUR #### [facility] [address] [place] [address] Dr. Garo Whitmore Covid-19 PCR (CVDTBH)on SARS-CoV-2 (COVID-19) RNA TAJ+probe Ql (Unsp spec) Detected Critically abnormal NOT DETECTED [facility] Comment on above: Result Comment: This test is not yet approved or cleared by the [place] FDA. When there are no FDA-approved or cleared tests available, and other criteria are met, FDA can make tests available under an emergency access mechanism called an Emergency Use Authorization (EUA). The EUA for this test is supported by the [employer] Health and Human Service's declaration that circumstances exist to justify the emergency use of in vitro diagnostics for the detection and/or diagnosis of the virus that causes COVID-19. This EUA will remain in effect for the duration of the COVID-19 declaration justifying emergency of IVDs, unless it is terminated or revoked by the FDA (after which the test may no longer be used). Performed By: #### C VDTBH #### [facility] [address] [address] [address] Garo Whitmore ER URINE PROFILEon 2 Bilirubin Ql (U) MODERATE Abnormal NEGATIVE [facility] Comment on above: Performed By: #### U MICRO, ERUR #### [facility] [address] [address] [address] Garo Whitmore Clarity (U) CLEAR Normal CLEAR [facility] Comment on above: Performed By: #### U MICRO, ERUR #### [facility] [address] [address] [address] Garo Whitmore Color (U) DK. YELLOW Normal YELLOW [facility] Comment on above: Performed By: #### U MICRO, ERUR #### [facility] [address] [place] [address] Dr. Garo Whitmore ERUAHD A micrscopic examina tion will be performed if indicated. Normal [facility] Comment on above: Performed By: #### U MICRO, ERUR #### [facility] [address] [place] [address] Dr. Garo Whitmore Glucose Ql (U) Negative Normal NEGATIVE [facility] Comment on above: Performed By: #### U MICRO, ERUR #### [facility] [address] [place] [address] Dr. Garo Whitmore Hemoglobin Ql (U) TRACE-INTACT Abnormal NEGATIVE [facility] Comment on above: Performed By: #### U MICRO, ERUR #### [facility] [address] [place] [address] Dr. Garo Whitmore Ketones Ql (U) TRACE Abnormal NEGATIVE [facility] Comment on above: Performed By: #### U MICRO, ERUR #### [facility] [address] [address] [address] Garo Whitmore LEUKOCYTES Negative Normal NEGATIVE [facility] Comment on above: Performed By: #### U MICRO, ERUR #### [facility] [address] [address] [address] Garo Whitmore Nitrite Ql (U) Negative Normal NEGATIVE [facility] Comment on above: Performed By: #### U MICRO, ERUR #### [facility] [address] [place] [address] Dr. Garo Whitmore pH (U) 5.5 [pH] Normal 5-9 [facility] Comment on above: Performed By: #### U MICRO, ERUR #### [facility] [address] [place] [address] Dr. Garo Whitmore Protein (U) [Mass/Vol] 100 mg/dL Abnormal NEGATIVE/ TRACE [facility] Comment on above: Performed By: #### U MICRO, ERUR #### [facility] [address] [place] [address] Dr. Garo Whitmore SPEC GRAVITY >=1.030 Abnormal 1.005-<=1.025 [facility] Comment on above: Performed By: #### U MICRO, ERUR #### [facility] [address] [place] [address] Dr. Garo Whitmore UR MICRO IND INDICATED Normal [facility] Comment on above: Performed By: #### U MICRO, ERUR #### [facility] [address] [place] [address] Dr. Garo Whitmore Urobilinogen Qn (U) 1.0 {Jesús'U}/dL Normal 0.2 - 1. 0 [facility] Comment on above: Performed By: #### U MICRO, ERUR #### [facility] [address] [place] [address] Dr. Garo Whitmore LIPASEon 11-24-2021 Lipase [Catalytic activity/Vol] 37.0 U/L Critically low 73.0-393.0 [facility] Comment on above: Performed By: #### C BC #### [facility] [address] [place] [address] Dr. Garo Whitmore PROF 14(COMP METB)on 022 Albumin [Mass/Vol] 2.6 g/dL Critically low 3.4-5.0 [facility] Comment on above: Performed By: #### C BC #### [facility] [address] [place] [address] Dr. Garo Whitmore Albumin/Globulin [Mass ratio] 0.6 {ratio} Normal [facility] Comment on above: Performed By: #### C BC #### [facility] [address] [place] [address] Dr. Garo Whitmore ALP [Catalytic activity/Vol] 524 U/L Critically high 46-116 [facility] Comment on above: Performed By: #### C BC #### [facility] [address] [place] [address] Dr. Garo Whitmore ALT [Catalytic activity/Vol] 24 U/L Normal 16-63 [facility] Comment on above: Performed By: #### C BC #### [facility] [address] [place] [address] Dr. Garo Whitmore Anion gap [Moles/Vol] 11.5 mmol/L Normal [facility] Comment on above: Performed By: #### C BC #### [facility] [address] [place] [address] Dr. Garo Whitmore AST [Catalytic activity/Vol] 66 U/L Critically high 15-37 [facility] Comment on above: Performed By: #### C BC #### [facility] [address] [place] [address] Dr. Garo Whitmore Bilirubin [Mass/Vol] 0.7 mg/dL Normal 0.2-1.0 [facility] Comment on above: Performed By: #### C BC #### [facility] [address] [place] [address] Dr. Garo Whitmore Calcium [Mass/Vol] 8.8 mg/dL Normal 8.5-10.1 [facility] Comment on above: Performed By: #### C BC #### [facility] [address] [place] [address] Dr. Garo Whitmore Chloride [Moles/Vol] 100 mmol/L Normal 98-107 [facility] Comment on above: Performed By: #### C BC #### [facility] [address] [place] [address] Dr. Garo Whitmore CO2 [Moles/Vol] 27.7 mmol/L Normal 21.0-32.0 [facility] Comment on above: Performed By: #### C BC #### [facility] [address] [place] [address] Dr. Garo Whitmore Creatinine [Mass/Vol] 1.09 mg/dL Normal 0.70-1.30 [facility] Comment on above: Performed By: #### C BC #### [facility] [address] [address] [address] Garo Whitmore EGFR-AF PANAMANIAN >60 Normal >=60 [facility] Comment on above: Performed By: #### C BC #### [facility] [address] [address] [address] Garo Whitmore EGFR-NON AF PANAMANIAN >60 Normal >=60 [facility] Comment on above: Performed By: #### C BC #### [facility] [address] [address] [address] Garo Whitmore Globulin (S) [Mass/Vol] 4.5 g/dL Normal [facility] Comment on above: Performed By: #### C BC #### [facility] [address] [place] [address] Dr. Garo Whitmore Glucose [Mass/Vol] 123 mg/dL Critically high 74-106 [facility] Comment on above: Performed By: #### C BC #### [facility] [address] [place] [address] Dr. Garo Whitmore Potassium [Moles/Vol] 4.2 mmol/L Normal 3.5-5.1 [facility] Comment on above: Performed By: #### C BC #### [facility] [address] [place] [address] Dr. Garo Whitmore Protein [Mass/Vol] 7.1 g/dL Normal 6.4-8.2 [facility] Comment on above: Performed By: #### C BC #### [facility] [address] [address] [address] Garo Whitmore Sodium [Moles/Vol] 135 mmol/L Critically low 136-145 [facility] Comment on above: Performed By: #### C BC #### [facility] [address] [place] [address] Dr. Garo Whitmore Urea nitrogen [Mass/Vol] 15.0 mg/dL Normal 7.0-18.0 [facility] Comment on above: Performed By: #### C BC #### [facility] [address] [address] [address] Garo Whitmore Urea nitrogen/Creatinine [Mass ratio] 13.8 mg/mg Normal [facility] Comment on above: Performed By: #### C BC #### [facility] [address] [place] [address] Dr. Garo Whitmore URINE MICROSCOPIC ONLYon BACTERIA SMALL Abnormal NONE SEEN [facility] Comment on above: Performed By: #### U MICRO, ERUR #### [facility] [address] [address] [address] Garo Whitmore Bacteria identified Cx Nom (U) INDICATED Normal [facility] Comment on above: Performed By: #### U MICRO, ERUR #### [facility] [address] [place] [address] Dr. Garo Whitmore CAST SEEN Abnormal NONE SEEN [facility] Comment on above: Performed By: #### U MICRO, ERUR #### [facility] [address] [place] [address] Dr. Garo Whitmore Crystals LM Nom (Urine sed) NONE SEEN Normal NONE SEEN [facility] Comment on above: Performed By: #### U MICRO, ERUR #### [facility] [address] [place] [address] Dr. Garo Whitmore Epithelial cells LM Ql (Urine sed) FEW Abnormal NONE SEEN /RARE [facility] Comment on above: Performed By: #### U MICRO, ERUR #### [facility] [address] [place] [address] Dr. Garo Whitmore HYALINE CAST RARE Normal [facility] Comment on above: Performed By: #### U MICRO, ERUR #### [facility] [address] [place] [address] Dr. Garo Whitmore MUCOUS MODERATE Abnormal NONE SEEN [facility] Comment on above: Performed By: #### U MICRO, ERUR #### [facility] [address] [place] [address] Dr. Garo Whitmore RBC 2-5 Abnormal 0-2 [facility] Comment on above: Performed By: #### U MICRO, ERUR #### [facility] [address] [address] [address] Garo Whitmore WBC 2-5 Abnormal NONE SEEN [facility] Comment on above: Performed By: #### U MICRO, ERUR #### [facility] [address] [address] [address] Garo Whitmore XR CHEST 2 Von 11-24-2021 XR CHEST 2 V EXAMINATION: XR CHES T 2 V HISTORY: Abnormal weight loss COMPARISON: No relevant comparison available. FINDINGS: LUNGS: Hyperexpanded lungs without appreciable infiltrates or mass. VASCULATURE: No increased pulmonary vasculature. PLEURA: No pneumothorax, effusion, or pleural thickening. CARDIAC: No cardiomegaly or cardiac silhouette abnormality. MEDIASTINUM: No visible mass or adenopathy. BONES: No fracture or visible bone lesion. OTHER: Negative. IMPRESSION: 1. Hyperexpanded lungs; exaggerated inspiratory effort versus COPD. 2. No acute cardiopulmonary process. Electronically authenticated by: COLTEN MASON Date: 2021-11-24 11:54 Normal [facility] CBC AUTO DIFFon 09-07-2021 BASO # 0.1 103/ul Normal 0.0-0.1 [facility] Comment on above: Performed By: #### C BC #### [facility] [address] [place] [address] Dr. Garo Whitmore Basophils/100 WBC (Bld) 1.3 % Normal 0.2-2.0 [facility] Comment on above: Performed By: #### C BC #### [facility] [address] [place] [address] Dr. Garo Whitmore EO # 0.1 103/ul Normal 0.0-0.7 [facility] Comment on above: Performed By: #### C BC #### [facility] [address] [address] [address] Garo Whitmore Eosinophils/100 WBC (Bld) 1.5 % Normal 0.9-7.0 [facility] Comment on above: Performed By: #### C BC #### [facility] [address] [place] [address] Dr. Garo Whitmore Erythrocyte distribution width (RBC) [Ratio] 13.0 % Normal 11.0-15.0 [facility] Comment on above: Performed By: #### C BC #### [facility] [address] [place] [address] Dr. Garo Whitmore Hematocrit (Bld) [Volume fraction] 43.3 % Normal 42.0-54.0 [facility] Comment on above: Performed By: #### C BC #### [facility] [address] [place] [address] Dr. Garo Whitmore Hemoglobin (Bld) [Mass/Vol] 14.1 g/dL Normal 14.0-18.0 [facility] Comment on above: Performed By: #### C BC #### [facility] [address] [place] [address] Dr. Garo Whitmore IG # 0.01 10e3/ul Normal 0.00-0.03 [facility] Comment on above: Performed By: #### C BC #### [facility] [address] [place] [address] Dr. Garo Whitmore IG % 0.2 % Normal 0.0-0.5 [facility] Comment on above: Performed By: #### C BC #### [facility] [address] [place] [address] Dr. Garo Whitmore LYMPH # 1.0 103/ul Critically low 1.2-3.8 [facility] Comment on above: Performed By: #### C BC #### [facility] [address] [place] [address] Dr. Garo Whitmore Lymphocytes/100 WBC (Bld) 19.0 % Critically low 20.5-60.0 [facility] Comment on above: Performed By: #### C BC #### [facility] [address] [place] [address] Dr. Garo Whitmore MANUAL DIFF REQ NO Normal [facility] Comment on above: Performed By: #### C BC #### [facility] [address] [place] [address] Dr. Garo Whitmore MCH (RBC) [Entitic mass] 30.7 pg Normal 25.9-34.0 [facility] Comment on above: Performed By: #### C BC #### [facility] [address] [place] [address] Dr. Garo Whitmore MCHC (RBC) [Mass/Vol] 32.6 g/dL Normal 29.9-35.2 [facility] Comment on above: Performed By: #### C BC #### [facility] [address] [place] [address] Dr. Garo Whitmore MCV (RBC) [Entitic vol] 94.3 fL Critically high 80.0-94.0 [facility] Comment on above: Performed By: #### C BC #### [facility] [address] [place] [address] Dr. Garo Whitmore MONO # 0.4 103/ul Normal 0.3-0.8 [facility] Comment on above: Performed By: #### C BC #### [facility] [address] [place] [address] Dr. Garo Whitmore Monocytes/100 WBC (Bld) 7.2 % Normal 1.7-12.0 [facility] Comment on above: Performed By: #### C BC #### [facility] [address] [place] [address] Dr. Garo Whitmore NEUT # 3.7 103/ul Normal 1.4-6.5 [facility] Comment on above: Performed By: #### C BC #### [facility] [address] [place] [address] Dr. Garo Whitmore Neutrophils/100 WBC (Bld) 70.8 % Normal 43.0-75.0 [facility] Comment on above: Performed By: #### C BC #### [facility] [address] [place] [address] Dr. Gaor Whitmore Platelet mean volume (Bld) [Entitic vol] 9.0 fL Critically low 9.5-13.5 [facility] Comment on above: Performed By: #### C BC #### [facility] [address] [place] [address] Dr. Garo Whitmore PLT 211 103/ul Normal 150-450 [facility] Comment on above: Performed By: #### C BC #### [facility] [address] [place] [address] Dr. Garo Whitmore RBC 4.59 106/ul Critically low 4.70-6.10 [facility] Comment on above: Performed By: #### C BC #### [facility] [facility] [address] [place] [address] Dr. Garo Whitmore WBC 5.3 103/ul Normal 4.0-11.0 [facility] Comment on above: Performed By: #### C BC #### [facility] [address] [place] [address] Dr. Garo Whitmore CRPon 09-07-2021 CRP [Mass/Vol] mg/L Normal <=1.0 [facility] Comment on above: Performed By: #### C BC #### [facility] [address] [place] [address] Dr. Garo Whitmore PROF 14(COMP METB)on 022 Albumin [Mass/Vol] 3.7 g/dL Normal 3.4-5.0 [facility] Comment on above: Performed By: #### C BC #### [facility] [address] [place] [address] Dr. Garo Whitmore Albumin/Globulin [Mass ratio] 1.2 {ratio} Normal [facility] Comment on above: Performed By: #### C BC #### [facility] [address] [place] [address] Dr. Garo Whitmore ALP [Catalytic activity/Vol] 91 U/L Normal 46-116 [facility] Comment on above: Performed By: #### C BC #### [facility] [address] [place] [address] Dr. Garo Whitmore ALT [Catalytic activity/Vol] 27 U/L Normal 16-63 [facility] Comment on above: Performed By: #### C BC #### [facility] [address] [place] [address] Dr. Garo Whitmore Anion gap [Moles/Vol] 10.0 mmol/L Normal Th [facility] Comment on above: Performed By: #### C BC #### [facility] [address] [address] [address] Garo Whitmore AST [Catalytic activity/Vol] 14 U/L Critically low 15-37 [facility] Comment on above: Performed By: #### C BC #### [facility] [address] [address] [address] Garo Whitmore Bilirubin [Mass/Vol] 0.4 mg/dL Normal 0.2-1.3 [facility] Comment on above: Performed By: #### C BC #### [facility] [address] [address] [address] Garo Whitmore Calcium [Mass/Vol] 8.5 mg/dL Normal 8.5-10.1 [facility] Comment on above: Performed By: #### C BC #### [facility] [address] [address] [address] Garo Whitmore Chloride [Moles/Vol] 102 mmol/L Normal 98-107 [facility] Comment on above: Performed By: #### C BC #### [facility] [address] [address] [address] Garo Whitmore CO2 [Moles/Vol] 31.5 mmol/L Critically high 22.0-30.0 [facility] Comment on above: Performed By: #### C BC #### [facility] [address] [address] [address] Garo Whitmore Creatinine [Mass/Vol] 1.23 mg/dL Normal 0.66-1.25 [facility] Comment on above: Performed By: #### C BC #### [facility] [address] [address] [address] Garo Whitmore EGFR-AF PANAMANIAN >60 Normal >=60 [facility] Comment on above: Performed By: #### C BC #### [facility] [address] [address] [address] Garo Whitmore EGFR-NON AF PANAMANIAN 56 mL/min/1.73m2 Critically low >=60 [facility] Comment on above: Performed By: #### C BC #### [facility] [address] [place] [address] Dr. Garo Whitmore Globulin (S) [Mass/Vol] 3.1 g/dL Normal [facility] Comment on above: Performed By: #### C BC #### [facility] [address] [place] [address] Dr. Garo Whitmore Glucose [Mass/Vol] 110 mg/dL Critically high 74-106 [facility] Comment on above: Performed By: #### C BC #### [facility] [address] [place] [address] Dr. Garo Whitmore Potassium [Moles/Vol] 4.5 mmol/L Normal 3.4-5.0 [facility] Comment on above: Performed By: #### C BC #### [facility] [address] [place] [address] Dr. Garo Whitmore Protein [Mass/Vol] 6.8 g/dL Normal 6.1-8.2 [facility] Comment on above: Performed By: #### C BC #### [facility] [address] [place] [address] Dr. Garo Whitmore Sodium [Moles/Vol] 139 mmol/L Normal 137-145 [facility] Comment on above: Performed By: #### C BC #### [facility] [address] [place] [address] Dr. Garo Whitmore Urea nitrogen [Mass/Vol] 15.0 mg/dL Normal 7.0-18.0 [facility] Comment on above: Performed By: #### C BC #### [facility] [address] [place] [address] Dr. Garo Whitmore Urea nitrogen/Creatinine [Mass ratio] 12.2 mg/mg Normal [facility] Comment on above: Performed By: #### C BC #### [facility] [address] [place] [address] Dr. Garo Whitmore TSHon 09-07-2021 TSH 2.345 uIU/mL Normal 0.470-4.680 [facility] Comment on above: Performed By: #### C BC #### [facility] [address] [place], [place] [address] Dr. Garo Whitmore TSH RANGE SEE BELOW Normal [facility] Comment on above: Result Comment: <0.3 4 UIU/ml HYPERTHYROID 0.34-5.60 UIU/ml EUTHYROID >5.60 UIU/ml HYPOTHYROID Performed By: #### C #### [facility] [address] [place], [place] [address] Dr. Garo Whitmore Vital Signs Date Time Vital Sign Value Performing Clinician Marti vega 09-08-2023 13:22-0400 Body height 173 cm Brinda Delatorre APRN.PLASTER MACHINE TENDER Work Phone: [facility] 09-08-2023 13:22-0400 Body temperature 97.2 [degF] Brinda Delatorre APRN.PLASTER MACHINE TENDER Work Phone: [facility] 09-08-2023 13:22-0400 Body weight 71.1 kg Brinda Delatorre APRN.PLASTER MACHINE TENDER Work Phone: [facility] 09-08-2023 13:22-0400 Diastolic blood pressure 50 mm[Hg] Brinda Delatorre APRN.PLASTER MACHINE TENDER Work Phone: [facility] 09-08-2023 13:22-0400 Heart rate 74 /min Brinda Delatorre APRN.PLASTER MACHINE TENDER Work Phone: [facility] 09-08-2023 13:22-0400 Respiratory rate 16 /min Brinda Delatorre APRN.PLASTER MACHINE TENDER Work Phone: [facility] 09-08-2023 13:22-0400 SaO2% (BldA) [Mass fraction] 95 % Brinda Delatorre APRN.PLASTER MACHINE TENDER Work Phone: [facility] 09-08-2023 13:22-0400 Systolic blood pressure 123 mm[Hg] Brinda Delatorre APRN.PLASTER MACHINE TENDER Work Phone: [facility] 08-30-2023 14:42-0400 Body height 173 cm Juancho Aldridge MD Work Phone: [facility] 08-30-2023 14:42-0400 Body temperature 97.39 [degF] Juancho Aldridge MD Work Phone: [facility] 08-30-2023 14:42-0400 Body weight 72.5 kg Juancho Aldridge MD Work Phone: [facility] 08-30-2023 14:42-0400 Diastolic blood pressure 50 mm[Hg] Juancho Aldridge MD Work Phone: [facility] 08-30-2023 14:42-0400 Heart rate 75 /min Juancho Aldridge MD Work Phone: [facility] 08-30-2023 14:42-0400 Respiratory rate 16 /min Juancho Aldridge MD Work Phone: [facility] 08-30-2023 14:42-0400 SaO2% (BldA) [Mass fraction] 100 % Juancho Aldridge MD Work Phone: [facility] 08-30-2023 14:42-0400 Systolic blood pressure 125 mm[Hg] Juancho Aldridge MD Work Phone: [facility] 08-09-2023 13:54-0400 Body height 173 cm Brinda Delatorre CYCLING INSTRUCTOR.PLASTER MACHINE TENDER Work Phone: [facility] 08-09-2023 13:54-0400 Body temperature 97.3 [degF] Brinda Delatorre CYCLING INSTRUCTOR.PLASTER MACHINE TENDER Work Phone: [facility] 08-09-2023 13:54-0400 Body weight 70.4 kg Brinda Delatorre APRN.PLASTER MACHINE TENDER Work Phone: [facility] 08-09-2023 13:54-0400 Diastolic blood pressure 49 mm[Hg] Brinda Delatorre CYCLING INSTRUCTOR.PLASTER MACHINE TENDER Work Phone: [facility] 08-09-2023 13:54-0400 Heart rate 71 /min Brinda Delatorre APRN.PLASTER MACHINE TENDER Work Phone: [facility] 08-09-2023 13:54-0400 Respiratory rate 18 /min Brinda Delatorre APRN.PLASTER MACHINE TENDER Work Phone: [facility] 08-09-2023 13:54-0400 SaO2% (BldA) [Mass fraction] 97 % Brinda Delatorre CYCLING INSTRUCTOR.PLASTER MACHINE TENDER Work Phone: [facility] 08-09-2023 13:54-0400 Systolic blood pressure 136 mm[Hg] Brinda Delatorre CYCLING INSTRUCTOR.PLASTER MACHINE TENDER Work Phone: [facility] 07-27-2023 10:07-0500 Body temperature 98.4 [degF] Karma Oconnor MD Work Phone: [facility] 07-27-2023 10:07-0500 Body weight 70.6 kg Karma Oconnor MD Work Phone: [facility] 07-27-2023 10:07-0500 Diastolic blood pressure 58 mm[Hg] Karma Oconnor MD Work Phone: [facility] 07-27-2023 10:07-0500 Heart rate 72 /min Karma Oconnor MD Work Phone: [facility] 07-27-2023 10:07-0500 Respiratory rate 17 /min Karma Oconnor MD Work Phone: [facility] 07-27-2023 10:07-0500 SaO2% (BldA) [Mass fraction] 100 % Karma Oconnor MD Work Phone: [facility] 07-27-2023 10:07-0500 Systolic blood pressure 127 mm[Hg] Karma Oconnor MD Work Phone: [facility] 07-19-2023 13:10-0500 Body height 173 cm Juancho Aldridge MD Work Phone: [facility] 07-19-2023 13:10-0500 Body temperature 97.3 [degF] Juancho Aldridge MD Work Phone: [facility] 07-19-2023 13:10-0500 Body weight 70.2 kg Juancho Aldridge MD Work Phone: [facility] 07-19-2023 13:10-0500 Diastolic blood pressure 51 mm[Hg] Juancho Aldridge MD Work Phone: [facility] 07-19-2023 13:10-0500 Heart rate 77 /min Juancho Aldridge MD Work Phone: [facility] 07-19-2023 13:10-0500 Respiratory rate 16 /min Juancho Aldridge MD Work Phone: [facility] 07-19-2023 13:10-0500 SaO2% (BldA) [Mass fraction] 98 % Juancho Aldridge MD Work Phone: [facility] 07-19-2023 13:10-0500 Systolic blood pressure 131 mm[Hg] Juanhco Aldridge MD Work Phone: [facility] 06-28-2023 14:40-0500 Body height 173 cm Juancho Aldridge MD Work Phone: [facility] 06-28-2023 14:40-0500 Body temperature 97.39 [degF] Juancho Aldridge MD Work Phone: [facility] 06-28-2023 14:40-0500 Body weight 69.3 kg Juancho Aldridge MD Work Phone: [facility] 06-28-2023 14:40-0500 Diastolic blood pressure 51 mm[Hg] Juancho Aldridge MD Work Phone: [facility] 06-28-2023 14:40-0500 Heart rate 75 /min Juancho Aldridge MD Work Phone: [facility] 06-28-2023 14:40-0500 Respiratory rate 18 /min Juancho Aldridge MD Work Phone: [facility] 06-28-2023 14:40-0500 SaO2% (BldA) [Mass fraction] 100 % Juancho Aldridge MD Work Phone: [facility] 06-28-2023 14:40-0500 Systolic blood pressure 127 mm[Hg] Juancho Aldridge MD Work Phone: [facility] 06-07-2023 15:25-0500 Diastolic blood pressure 71 mm[Hg] MD Chayito Duarte Work Phone: [facility] 06-07-2023 15:25-0500 Heart rate 88 /min MD Chayito Duarte Work Phone: [facility] 06-07-2023 15:25-0500 Respiratory rate 16 /min MD Chayito Duarte Work Phone: [facility] 06-07-2023 15:25-0500 SaO2% (BldA) [Mass fraction] 98 % MD Chayito Duarte Work Phone: [facility] 06-07-2023 15:25-0500 Systolic blood pressure 134 mm[Hg] MD Chayito Duarte Work Phone: [facility] 06-07-2023 14:19-0500 Body height 175.26 cm MD Chayito Duarte Work Phone: [facility] 06-07-2023 07:53-0500 Body temperature 97.9 [degF] MD Chayito Duarte Work Phone: [facility] 06-07-2023 05:51-0500 Body weight 66 kg MD Chayito Duarte Work Phone: [facility] 05-27-2023 11:08-0500 Blood Pressure Location Isaalcira MULLER [facility] 05-27-2023 11:08-0500 Diastolic blood pressure 71 mm[Hg] Isa MULLER [facility] 05-27-2023 11:08-0500 Heart rate 71 /min Isa MULLER [facility] 05-27-2023 11:08-0500 Respiratory rate 16 /min Isa MULLER [facility] 05-27-2023 11:08-0500 Systolic blood pressure 137 mm[Hg] Sia MULLER [facility] 04-21-2023 09:29-0500 Body height 173 cm Juancho Aldridge MD Work Phone: [facility] 04-21-2023 09:29-0500 Body temperature 97.81 [degF] Juancho Aldridge MD Work Phone: [facility] 04-21-2023 09:29-0500 Body weight 69.58 kg Juancho Aldridge MD Work Phone: [facility] 04-21-2023 09:29-0500 Diastolic blood pressure 46 mm[Hg] Juancho Aldridge MD Work Phone: [facility] 04-21-2023 09:29-0500 Heart rate 82 /min Juancho Aldridge MD Work Phone: [facility] 04-21-2023 09:29-0500 Respiratory rate 16 /min Juancho Aldridge MD Work Phone: [facility] 04-21-2023 09:29-0500 SaO2% (BldA) [Mass fraction] 100 % Juancho Aldridge MD Work Phone: [facility] 04-21-2023 09:29-0500 Systolic blood pressure 115 mm[Hg] Juancho Aldridge MD Work Phone: [facility] 04-13-2023 14:28-0500 Body temperature 98.91 [degF] Lab/[place] Work Phone: [facility] 04-13-2023 14:28-0500 Diastolic blood pressure 65 mm[Hg] Lab/[place] Work Phone: [facility] 04-13-2023 14:28-0500 Heart rate 77 /min Lab/[place] Work Phone: [facility] 04-13-2023 14:28-0500 Respiratory rate 18 /min Lab/[place] Work Phone: [facility] 04-13-2023 14:28-0500 SaO2% (BldA) [Mass fraction] 99 % Lab/[place] Work Phone: [facility] 04-13-2023 14:28-0500 Systolic blood pressure 129 mm[Hg] Lab/[place] Work Phone: [facility] 04-07-2023 13:30-0500 Body height 173 cm Savanna Kaylah PA-C Work Phone: [facility] 04-07-2023 13:30-0500 Body temperature 97.59 [degF] Savanna Kaylah PA-C Work Phone: [facility] 04-07-2023 13:30-0500 Body weight 69.04 kg Savanna Kaylah PA-C Work Phone: [facility] 04-07-2023 13:30-0500 Diastolic blood pressure 87 mm[Hg] Savanna Kaylah PA-C Work Phone: [facility] 04-07-2023 13:30-0500 Heart rate 66 /min Savanna Kaylah PA-C Work Phone: [facility] 04-07-2023 13:30-0500 Respiratory rate 16 /min Savanna Kaylah PA-C Work Phone: [facility] 04-07-2023 13:30-0500 SaO2% (BldA) [Mass fraction] 98 % Savanna Kaylah PA-C Work Phone: [facility] 04-07-2023 13:30-0500 Systolic blood pressure 126 mm[Hg] Savanna Kaylah PA-C Work Phone: [facility] 03-31-2023 13:04-0500 Body height 173 cm Savanna Kaylah PA-C Work Phone: [facility] 03-31-2023 13:04-0500 Body temperature 97.59 [degF] Savanna Kaylah PA-C Work Phone: [facility] 03-31-2023 13:04-0500 Body weight 67.59 kg Savanna Kaylah PA-C Work Phone: [facility] 03-31-2023 13:04-0500 Diastolic blood pressure 67 mm[Hg] Savanna Kaylah PA-C Work Phone: [facility] 03-31-2023 13:04-0500 Heart rate 67 /min Savanna Kaylah PA-C Work Phone: [facility] 03-31-2023 13:04-0500 Respiratory rate 16 /min Savanna Kaylah PA-C Work Phone: [facility] 03-31-2023 13:04-0500 SaO2% (BldA) [Mass fraction] 100 % Savanna Kaylah PA-C Work Phone: [facility] 03-31-2023 13:04-0500 Systolic blood pressure 104 mm[Hg] Savanna Kaylah PA-C Work Phone: [facility] 03-30-2023 14:59-0500 Body height 173 cm Karma Oconnor MD Work Phone: [facility] 03-30-2023 14:59-0500 Body temperature 98.6 [degF] Karma Oconnor MD Work Phone: [facility] 03-30-2023 14:59-0500 Body weight 67 kg Karma Oconnor MD Work Phone: [facility] 03-30-2023 14:59-0500 Diastolic blood pressure 54 mm[Hg] Karma Oconnor MD Work Phone: [facility] 03-30-2023 14:59-0500 Heart rate 77 /min Karma Oconnor MD Work Phone: [facility] 03-30-2023 14:59-0500 Respiratory rate 20 /min Karma Oconnor MD Work Phone: [facility] 03-30-2023 14:59-0500 SaO2% (BldA) [Mass fraction] 100 % Karma Oconnor MD Work Phone: [facility] 03-30-2023 14:59-0500 Systolic blood pressure 121 mm[Hg] Karma Oconnor MD Work Phone: [facility] 03-03-2023 13:45-0400 Body temperature 98.1 [degF] Chair [place] Work Phone: [facility] 03-03-2023 13:45-0400 Diastolic blood pressure 50 mm[Hg] Chair [place] Work Phone: [facility] 03-03-2023 13:45-0400 Heart rate 76 /min Chair [place] Work Phone: [facility] 03-03-2023 13:45-0400 Respiratory rate 18 /min Chair [place] Work Phone: [facility] 03-03-2023 13:45-0400 SaO2% (BldA) [Mass fraction] 99 % Chair [place] Work Phone: [facility] 03-03-2023 13:45-0400 Systolic blood pressure 99 mm[Hg] Chair [place] Work Phone: [facility] 02-24-2023 14:07-0400 Body height 169.8 cm Juancho Aldridge MD Work Phone: [facility] 02-24-2023 14:07-0400 Body temperature 97.5 [degF] Juancho Aldridge MD Work Phone: [facility] 02-24-2023 14:07-0400 Body weight 68.22 kg Juancho Aldridge MD Work Phone: [facility] 02-24-2023 14:07-0400 Diastolic blood pressure 60 mm[Hg] Juancho Aldridge MD Work Phone: [facility] 02-24-2023 14:07-0400 Heart rate 77 /min Juancho Aldridge MD Work Phone: [facility] 02-24-2023 14:07-0400 Respiratory rate 18 /min Juancho Aldridge MD Work Phone: [facility] 02-24-2023 14:07-0400 SaO2% (BldA) [Mass fraction] 99 % Juancho Aldridge MD Work Phone: [facility] 02-24-2023 14:07-0400 Systolic blood pressure 123 mm[Hg] Juancho Aldridge MD Work Phone: [facility] 02-10-2023 10:23-0400 Body height 169.8 cm Juancho Aldridge MD Work Phone: [facility] 02-10-2023 10:23-0400 Body temperature 97.59 [degF] Juancho Aldridge MD Work Phone: [facility] 02-10-2023 10:23-0400 Body weight 70.22 kg Juancho Aldridge MD Work Phone: [facility] 02-10-2023 10:23-0400 Diastolic blood pressure 62 mm[Hg] Juancho Aldridge MD Work Phone: [facility] 02-10-2023 10:23-0400 Heart rate 82 /min Juancho Aldridge MD Work Phone: [facility] 02-10-2023 10:23-0400 Respiratory rate 18 /min Juancho Aldridge MD Work Phone: [facility] 02-10-2023 10:23-0400 SaO2% (BldA) [Mass fraction] 98 % Juancho Aldridge MD Work Phone: [facility] 02-10-2023 10:23-0400 Systolic blood pressure 135 mm[Hg] Juancho Aldridge MD Work Phone: [facility] 01-26-2023 14:57-0400 Body temperature 97 [degF] STAS Esparza MD Work Phone: [facility] 01-26-2023 14:57-0400 Body weight 68.04 kg STAS Esparza MD Work Phone: [facility] 01-26-2023 14:57-0400 Diastolic blood pressure 71 mm[Hg] STAS Esparza MD Work Phone: [facility] 01-26-2023 14:57-0400 Heart rate 80 /min STAS Esparza MD Work Phone: [facility] 01-26-2023 14:57-0400 Respiratory rate 16 /min STAS Esparza MD Work Phone: [facility] 01-26-2023 14:57-0400 SaO2% (BldA) [Mass fraction] 100 % STAS Esparza MD Work Phone: [facility] 01-26-2023 14:57-0400 Systolic blood pressure 145 mm[Hg] STAS Esparza MD Work Phone: [facility] 01-18-2023 13:45-0400 Body height 174 cm Juancho Aldridge MD Work Phone: [facility] 01-18-2023 13:45-0400 Body temperature 97.39 [degF] Juancho Aldridge MD Work Phone: [facility] 01-18-2023 13:45-0400 Body weight 67.68 kg Juancho Aldridge MD Work Phone: [facility] 01-18-2023 13:45-0400 Diastolic blood pressure 49 mm[Hg] Juancho Aldridge MD Work Phone: [facility] 01-18-2023 13:45-0400 Heart rate 78 /min Juancho Aldridge MD Work Phone: [facility] 01-18-2023 13:45-0400 Respiratory rate 16 /min Juancho Aldridge MD Work Phone: [facility] 01-18-2023 13:45-0400 SaO2% (BldA) [Mass fraction] 99 % Juancho Aldridge MD Work Phone: [facility] 01-18-2023 13:45-0400 Systolic blood pressure 109 mm[Hg] Juancho Aldridge MD Work Phone: [facility] 2022 11:24-0400 Body height 174 cm Brinda Delatorre APRN.PLASTER MACHINE TENDER Work Phone: [facility] 2022 11:24-0400 Body temperature 97.2 [degF] Brinda Delatorre APRN.PLASTER MACHINE TENDER Work Phone: [facility] 2022 11:24-0400 Body weight 67.22 kg Brinda Delatorre APRN.PLASTER MACHINE TENDER Work Phone: [facility] 2022 11:24-0400 Diastolic blood pressure 75 mm[Hg] Brinda Delatorre APRN.PLASTER MACHINE TENDER Work Phone: [facility] 2022 11:24-0400 Heart rate 73 /min Brinda Delatorre APRN.PLASTER MACHINE TENDER Work Phone: [facility] 2022 11:24-0400 Respiratory rate 16 /min Brinda Delatorre APRN.PLASTER MACHINE TENDER Work Phone: [facility] 2022 11:24-0400 SaO2% (BldA) [Mass fraction] 99 % Brinda Delatorre APRN.PLASTER MACHINE TENDER Work Phone: [facility] 2022 11:24-0400 Systolic blood pressure 98 mm[Hg] Brinda Delatorre APRN.PLASTER MACHINE TENDER Work Phone: [facility] 11-29-2022 12:50-0400 Blood Pressure Location Isa MULLER [facility] 11-29-2022 12:50-0400 Diastolic blood pressure 57 mm[Hg] Isa MULLER [facility] 11-29-2022 12:50-0400 Heart rate 139 /min Isa MULLER [facility] 11-29-2022 12:50-0400 Respiratory rate 16 /min Isa MULLER [facility] 11-29-2022 12:50-0400 Systolic blood pressure 127 mm[Hg] Isa MULLER [facility] 11-15-2022 16:00-0400 Body height 174 cm Juancho Aldridge MD Work Phone: [facility] 11-15-2022 16:00-0400 Body temperature 97.59 [degF] Juancho Aldridge MD Work Phone: [facility] 11-15-2022 16:00-0400 Diastolic blood pressure 52 mm[Hg] Juancho Aldridge MD Work Phone: [facility] 11-15-2022 16:00-0400 Heart rate 63 /min Juancho Aldridge MD Work Phone: [facility] 11-15-2022 16:00-0400 Respiratory rate 16 /min Juancho Aldridge MD Work Phone: [facility] 11-15-2022 16:00-0400 SaO2% (BldA) [Mass fraction] 96 % Juancho Aldridge MD Work Phone: [facility] 11-15-2022 16:00-0400 Systolic blood pressure 123 mm[Hg] Juancho Aldridge MD Work Phone: [facility] 10-19-2022 15:36-0400 Body height 174 cm Juancho Aldridge MD Work Phone: [facility] 10-19-2022 15:36-0400 Body temperature 98.6 [degF] Juancho Aldridge MD Work Phone: [facility] 10-19-2022 15:36-0400 Body weight 67.68 kg Juancho Aldridge MD Work Phone: [facility] 10-19-2022 15:36-0400 Diastolic blood pressure 51 mm[Hg] Juancho Aldridge MD Work Phone: [facility] 10-19-2022 15:36-0400 Heart rate 69 /min Juancho Aldridge MD Work Phone: [facility] 10-19-2022 15:36-0400 Respiratory rate 18 /min Juancho Aldridge MD Work Phone: [facility] 10-19-2022 15:36-0400 SaO2% (BldA) [Mass fraction] 99 % Juancho Aldridge MD Work Phone: [facility] 10-19-2022 15:36-0400 Systolic blood pressure 130 mm[Hg] Juancho Aldridge MD Work Phone: [facility] 07-08-2022 13:53-0500 Body height 174 cm Juancho Aldridge MD Work Phone: [facility] 07-08-2022 13:53-0500 Body temperature 97.7 [degF] Juancho Aldridge MD Work Phone: [facility] 07-08-2022 13:53-0500 Body weight 68.4 kg Juancho Aldridge MD Work Phone: [facility] 07-08-2022 13:53-0500 Diastolic blood pressure 48 mm[Hg] Juancho Aldridge MD Work Phone: [facility] 07-08-2022 13:53-0500 Heart rate 76 /min Juancho Aldridge MD Work Phone: [facility] 07-08-2022 13:53-0500 Respiratory rate 16 /min Juancho Aldridge MD Work Phone: [facility] 07-08-2022 13:53-0500 SaO2% (BldA) [Mass fraction] 98 % Juancho Aldridge MD Work Phone: [facility] 07-08-2022 13:53-0500 Systolic blood pressure 130 mm[Hg] Juancho Aldridge MD Work Phone: [facility] 06-16-2022 11:03-0500 Body temperature 98.2 [degF] STAS Esparza MD Work Phone: [facility] 06-16-2022 11:03-0500 Body weight 68.04 kg STAS Esparza MD Work Phone: [facility] 06-16-2022 11:03-0500 Diastolic blood pressure 71 mm[Hg] STAS Esparza MD Work Phone: [facility] 06-16-2022 11:03-0500 Heart rate 85 /min STAS Esparza MD Work Phone: [facility] 06-16-2022 11:03-0500 Respiratory rate 16 /min STAS Esparza MD Work Phone: [facility] 06-16-2022 11:03-0500 SaO2% (BldA) [Mass fraction] 98 % STAS Esparza MD Work Phone: [facility] 06-16-2022 11:03-0500 Systolic blood pressure 151 mm[Hg] STAS Esparza MD Work Phone: [facility] 06-04-2022 10:02-0500 Blood Pressure Location Isa MULLER [facility] 06-04-2022 10:02-0500 Diastolic blood pressure 76 mm[Hg] Isa MULLER [facility] 06-04-2022 10:02-0500 Heart rate 78 /min Isa UMLLER [facility] 06-04-2022 10:02-0500 Respiratory rate 16 /min Isa MULLER [facility] 06-04-2022 10:02-0500 Systolic blood pressure 134 mm[Hg] Isa MULLER [facility] 04-08-2022 14:22-0500 Body height 174 cm Savanna GARCIA-C Work Phone: [facility] 04-08-2022 14:22-0500 Body temperature 97.59 [degF] Savanna Adrian PA-C Work Phone: [facility] 04-08-2022 14:22-0500 Body weight 65.86 kg Savanna Kaylah PA-C Work Phone: [facility] 04-08-2022 14:22-0500 Diastolic blood pressure 47 mm[Hg] Savanna Kaylah PA-C Work Phone: [facility] 04-08-2022 14:22-0500 Heart rate 74 /min Savanna Kaylah PA-C Work Phone: [facility] 04-08-2022 14:22-0500 Respiratory rate 16 /min Savanna Kaylah PA-C Work Phone: [facility] 04-08-2022 14:22-0500 SaO2% (BldA) [Mass fraction] 99 % Savannareynold Samuelser PA-C Work Phone: [facility] 04-08-2022 14:22-0500 Systolic blood pressure 122 mm[Hg] Savanna Kaylah PA-C Work Phone: [facility] 01-07-2022 10:25-0400 Body temperature 98.2 [degF] [facility] Work Phone: [facility] 01-07-2022 10:25-0400 Diastolic blood pressure 56 mm[Hg] [facility] Work Phone: [facility] 01-07-2022 10:25-0400 Heart rate 69 /min [facility] Work Phone: [facility] 01-07-2022 10:25-0400 Respiratory rate 18 /min [facility] Work Phone: [facility] 01-07-2022 10:25-0400 SaO2% (BldA) [Mass fraction] 97 % [facility] Work Phone: [facility] 01-07-2022 10:25-0400 Systolic blood pressure 114 mm[Hg] [facility] Work Phone: [facility] 12-24-2021 11:16-0400 Body height 174 cm Juancho Aldridge MD Work Phone: [facility] 12-24-2021 11:16-0400 Body temperature 97.59 [degF] Juancho Aldridge MD Work Phone: [facility] 12-24-2021 11:16-0400 Body weight 64.86 kg Juancho Aldridge MD Work Phone: [facility] 12-24-2021 11:16-0400 Diastolic blood pressure 48 mm[Hg] Juancho Aldridge MD Work Phone: [facility] 12-24-2021 11:16-0400 Heart rate 62 /min Juancho Aldridge MD Work Phone: [facility] 12-24-2021 11:16-0400 Respiratory rate 16 /min Juancho Aldridge MD Work Phone: [facility] 12-24-2021 11:16-0400 SaO2% (BldA) [Mass fraction] 99 % Juancho Aldridge MD Work Phone: [facility] 12-24-2021 11:16-0400 Systolic blood pressure 115 mm[Hg] Juancho Aldridge MD Work Phone: [facility] 12-14-2021 09:56-0400 Blood Pressure Location Isa MULLER [facility] 12-14-2021 09:56-0400 Diastolic blood pressure 58 mm[Hg] Isa MULLER [facility] 12-14-2021 09:56-0400 Heart rate 81 /min Isa MULLER [facility] 12-14-2021 09:56-0400 Respiratory rate 16 /min Isa MULLER [facility] [place] 12-14-2021 09:56-0400 Systolic blood pressure 118 mm[Hg] Isa MULLER [facility] [place] 12-02-2021 07:40-0400 Blood Pressure Location Isa MULLER [facility] [place] 12-02-2021 07:40-0400 Diastolic blood pressure 87 mm[Hg] Isa MULLER [facility] [place] 12-02-2021 07:40-0400 Heart rate 80 /min Isa MULLER [facility] [place] 12-02-2021 07:40-0400 Respiratory rate 16 /min Isa MULLER [facility] [place] 12-02-2021 07:40-0400 Systolic blood pressure 138 mm[Hg] Isa MULLER [facility] [place] 12-01-2021 09:37-0400 Blood Pressure Location Isa MULLER [facility] [place] 12-01-2021 09:37-0400 Diastolic blood pressure 62 mm[Hg] Isa MULLER [facility] [place] 12-01-2021 09:37-0400 Heart rate 76 /min Isa MULLER [facility] [place] 12-01-2021 09:37-0400 Respiratory rate 16 /min Isa MULLER [facility] [place] 12-01-2021 09:37-0400 Systolic blood pressure 110 mm[Hg] Isa MULLER [facility] [place] Encounters Encounter Date Encounter Type Care Provider Facility Start: 09-09-2023 Orders Only Keshia Velazquez APRN.PLASTER MACHINE TENDER Work Phone: Hematology/Oncology Comment on above: Prostate cancer (HCC ) (Primary Dx) Care Coordination (F atigue; Leg Pain) Start: 09-08-2023 End: 09-08-2023 ambulatory BRINDA DELATORRE Facility:[facility] Start: 09-08-2023 End: 09-09-2023 Visit (SP) Office Brinda Delatorre APRN.CNP Work Phone: Hematology/Oncology Comment on above: Prostate cancer (HCC ) (Primary Dx); Anemia due to antineoplastic chemotherapy; Cancer related pain; Malignant neoplasm metastatic to bone (HCC); Seizure disorder (HCC) Start: 09-06-2023 End: 09-07-2023 ambulatory Chayito Duarte Facility:[facility] Start: 08-30-2023 End: 08-30-2023 ambulatory CHAYITO DUARTE Facility:[facility] Start: 08-30-2023 End: 08-30-2023 ambulatory [place] Work Phone: Hematology/Oncology Comment on above: 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) Prostate cancer (HCC ) (Primary Dx); Malignant neoplasm metastatic to bone (HCC); Anemia due to antineoplastic chemotherapy; Cancer related pain; Seizure disorder (HCC) Start: 08-30-2023 End: 08-30-2023 Patient encounter procedure Juancho Aldridge MD Work Phone: [facility] Start: 08-09-2023 End: 08-09-2023 Visit (SP) Office Brinda Delatorre APRN.CNP Work Phone: Hematology/Oncology Comment on above: Prostate cancer (HCC ) (Primary Dx); Malignant neoplasm metastatic to bone (HCC); Anemia due to antineoplastic chemotherapy; Cancer related pain; Seizure disorder (HCC) Start: 08-05-2023 Telephone encounter Juancho villarreal MD Work Phone: Hematology/Oncology Comment on above: Lab Orders Start: 07-27-2023 End: 07-27-2023 Subsequent hospital visit by physician [facility] Comment on above: Prostate cancer (HCC ) [C61] Start: 07-27-2023 End: 07-27-2023 ambulatory Karma Oconnor MD Work Phone: Hematology/Oncology Comment on above: Prostate cancer (HCC ) (Primary Dx) Start: 07-27-2023 End: 07-27-2023 Patient encounter procedure Karma Oconnor MD Work Phone: [facility] Start: 07-25-2023 End: 07-25-2023 ambulatory [facility] Facility:[facility] Start: 07-25-2023 Telephone encounter Kelly mcclain RN Work Phone: Hematology/Oncology Comment on above: Bindery Machine Tender - O ther (Lab Request) Start: 07-19-2023 End: 07-19-2023 ambulatory [facility] Facility:[facility] Start: 07-19-2023 End: 07-19-2023 ambulatory [place] Work Phone: Hematology/Oncology Comment on above: Prostate cancer (HCC ) (Primary Dx); Malignant neoplasm metastatic to bone (HCC) Prostate cancer (HCC ) (Primary Dx); Secondary malignant neoplasm of bone (HCC); Anemia due to antineoplastic chemotherapy; Neoplasm related pain (acute) (chronic) Start: 07-19-2023 End: 07-19-2023 Patient encounter procedure Juancho Aldridge MD Work Phone: [facility] Start: 06-30-2023 Telephone encounter Zoë Nunez Hematology/Oncology Comment on above: Results Start: 06-29-2023 End: 06-29-2023 ambulatory TAM LEWIS Not Available Start: 06-29-2023 End: 06-29-2023 Patient encounter procedure [facility] - Yumiko Calvillo [facility] A[facility] Comment on above: Sensorineural hearin g loss (SNHL) of both ears (Primary Dx) Start: 06-28-2023 End: 06-28-2023 ambulatory [facility] Work Phone: Hematology/Oncology Comment on above: 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) Prostate cancer (HCC ) (Primary Dx); Secondary malignant neoplasm of bone (HCC); Cancer related pain; Anemia due to antineoplastic chemotherapy Start: 06-28-2023 End: 06-28-2023 Patient encounter procedure Juancho Aldridge MD Work Phone: [facility] Start: 06-21-2023 End: 06-21-2023 ambulatory CHAYITO DUARTE Facility:[facility] Start: 06-15-2023 End: 06-15-2023 ambulatory CHAYITO DUARTE Facility:[facility] Start: 06-15-2023 End: 06-15-2023 ambulatory CHAYITO DUARTE Facility:[facility] Start: 06-14-2023 End: 06-14-2023 ambulatory CHAYITO DUARTE Facility:[facility] Start: 06-13-2023 End: 06-14-2023 ambulatory Chayito Duarte Facility:[facility] Start: 06-06-2023 End: 06-07-2023 ambulatory Chayito Duarte Facility:[facility] Start: 06-06-2023 End: 06-07-2023 Evaluation and management of inpatient MD Chayito Duarte Work Phone: [facility] Work Phone: Start: 06-06-2023 End: 06-07-2023 observation encounter MD Chayito Duarte Work Phone: [facility] Work Phone: Start: 05-27-2023 End: 05-28-2023 ambulatory Isa MULLER Facility:[facility] [place] Start: 05-27-2023 End: 05-27-2023 Patient encounter procedure Isa Son MULLER [facility] [place] Start: 05-26-2023 End: 05-26-2023 ambulatory CHAYITO DUARTE Facility:[facility] Start: 05-19-2023 End: 05-19-2023 ambulatory SAVANNA ADRIAN Facility:[facility] Start: 05-17-2023 End: 05-18-2023 ambulatory LICENSE EXAMINER Sveta Mathews Facility:[facility] Start: 05-12-2023 End: 05-12-2023 ambulatory CHAYITO DUARTE Facility:[facility] Start: 05-05-2023 End: 05-05-2023 ambulatory CHAYITO DUARTE Facility:[facility] Start: 05-05-2023 End: 05-05-2023 ambulatory [facility] Work Phone: Hematology/Oncology Comment on above: 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) Start: 05-03-2023 Telephone encounter Kelly mcclain RN Work Phone: Hematology/Oncology Comment on above: Care Coordination (D ental Cleaning) Start: 04-29-2023 Refill Roma grigsby RN Work Phone: Hematology/Oncology Comment on above: Refill Request Start: 04-27-2023 End: 04-27-2023 ambulatory KARMA OCONNOR Facility:[facility] Start: 04-27-2023 End: 04-27-2023 Subsequent hospital visit by physician [facility] Comment on above: Prostate cancer (HCC ) [C61] Start: 04-26-2023 End: 04-27-2023 ambulatory CHAYITO DUARTE Facility:[facility] Start: 04-26-2023 End: 04-26-2023 ambulatory [facility] Work Phone: Hematology/Oncology Comment on above: 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) Start: 04-26-2023 End: 04-27-2023 ambulatory RAFAELA MOROCHO Facility:[facility] Start: 04-26-2023 End: 04-26-2023 ambulatory Rafaela Morocho BRIE Work Phone: Hematology/Oncology Comment on above: Prostate cancer (HCC ) (Primary Dx); Malignant neoplasm metastatic to bone (HCC); Left buttock pain; Cancer related pain; Secondary malignant neoplasm of bone (HCC); Anemia, unspecified type Start: 04-26-2023 End: 04-26-2023 Telemedicine consultation with patient Rafaela Morocho BRIE Work Phone: [facility] Start: 04-21-2023 End: 04-21-2023 Patient encounter procedure [facility] Provider [facility] Department Start: 04-21-2023 Telephone encounter Juancho villarreal MD Work Phone: Cancer [facility] Comment on above: Transfusion Start: 04-21-2023 End: 04-21-2023 ambulatory CHAYITO DUARTE Facility:[facility] Start: 04-21-2023 End: 04-21-2023 ambulatory [facility] Work Phone: Hematology/Oncology Comment on above: Prostate cancer (HCC ) (Primary Dx); Malignant neoplasm metastatic to bone (HCC); Anemia due to antineoplastic chemotherapy Prostate cancer (HCC ) (Primary Dx); Malignant neoplasm metastatic to bone (HCC); Anemia due to antineoplastic chemotherapy; Neoplasm related pain (acute) (chronic) Start: 04-19-2023 End: 04-20-2023 ambulatory Chayito Duarte Facility:[facility] Start: 04-15-2023 Telephone encounter Dany Oconnor MD Work Phone: Hematology/Oncology Comment on above: Care Coordination (L utitium and injection) Start: 04-13-2023 End: 04-13-2023 ambulatory CHAYITO DUARTE Facility:[facility] Start: 04-13-2023 End: 04-13-2023 ambulatory [facility] Work Phone: Hematology/Oncology Comment on above: 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) Start: 04-11-2023 Patient encounter procedure [facility] Provider [facility] Start: 04-11-2023 Telephone encounter Juancho villareral MD Work Phone: Cancer [facility] Start: 04-08-2023 ambulatory Guerita Toribio RN Hem atology/Oncology Start: 04-07-2023 End: 04-07-2023 ambulatory CHAYITO Rylee [place] Facility:[facility] Start: 04-07-2023 End: 04-07-2023 ambulatory Savanna Peralta Kaylah GARCIA-C Work Phone: Hematology/Oncology Comment on above: Prostate cancer (HCC ) (Primary Dx); Anemia due to antineoplastic chemotherapy; Malignant neoplasm metastatic to bone (HCC) 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) Start: 04-07-2023 End: 04-07-2023 Patient encounter procedure Savanna Adrian PA-C Work Phone: [facility] Start: 04-06-2023 End: 04-06-2023 ambulatory TAM Pradeep LEWIS Not Available Start: 04-05-2023 Telephone encounter Kelly mcclain RN Work Phone: Hematology/Oncology Comment on above: Care Coordination (P luvicto Update) Start: 04-04-2023 Telephone encounter Dany Oconnor MD Work Phone: Molecular Imaging Comment on above: Pluvicto Start: 03-31-2023 End: 03-31-2023 ambulatory CHAYITOOJ DUARTE Facility:[facility] Start: 03-31-2023 Telephone encounter Kelly mcclain RN Work Phone: Hematology/Oncology Comment on above: Care Coordination (A ppointment) Start: 03-31-2023 End: 03-31-2023 ambulatory [facility] Work Phone: Hematology/Oncology Comment on above: 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) Prostate cancer (HCC ) (Primary Dx); Platelets decreased (HCC); Malignant neoplasm metastatic to bone (HCC); Anemia due to antineoplastic chemotherapy Start: 03-31-2023 End: 03-31-2023 Patient encounter procedure Savanna Adrian PA-C Work Phone: [facility] Start: 03-30-2023 End: 03-31-2023 ambulatory Karma Oconnor MD Work Phone: Hematology/Oncology Comment on above: Prostate cancer (HCC ) Start: 03-30-2023 End: 03-31-2023 Patient encounter procedure Karma Oconnor MD Work Phone: [facility] Start: 03-24-2023 End: 03-25-2023 ambulatory CHAYITO DUARTE Facility:[facility] Start: 03-17-2023 End: 03-18-2023 ambulatory CHAYITO DUARTE Facility:[facility] Start: 03-17-2023 End: 03-17-2023 ambulatory Chair [place] Work Phone: Hematology/Oncology Comment on above: Prostate cancer (HCC ) (Primary Dx) Start: 03-08-2023 Telephone encounter Brinda cortez APRN.CNP Work Phone: Hematology/Oncology Comment on above: Lab Orders Start: 03-03-2023 End: 03-03-2023 ambulatory CHAYITO DUARTE Facility:[facility] Start: 03-03-2023 End: 03-03-2023 ambulatory Chair [place] Work Phone: Hematology/Oncology Comment on above: Prostate cancer (HCC ) (Primary Dx) Start: 02-24-2023 End: 02-25-2023 ambulatory Juancho Aldridge MD Work Phone: Hematology/Oncology Comment on above: Prostate cancer (HCC ) (Primary Dx); Malignant neoplasm metastatic to bone (HCC); Cancer related pain Start: 02-24-2023 End: 02-24-2023 Patient encounter procedure Juancho Aldridge MD Work Phone: [facility] Start: 02-24-2023 Telephone encounter Estefany AGLLOWAY Hematology/Oncology Comment on above: Psychosocial Assessm ent (No Answer) Start: 02-23-2023 End: 02-24-2023 ambulatory Chayito Duarte Facility:[facility] [place] Start: 02-15-2023 End: 02-16-2023 ambulatory SAVANNA ADRIAN Facility:[facility] Start: 02-14-2023 Telephone encounter Savanna waltonr PA-C Work Phone: Hematology/Oncology Comment on above: Lab Orders Start: 02-10-2023 End: 02-11-2023 ambulatory Juancho Aldridge MD Work Phone: Hematology/Oncology Comment on above: Prostate cancer (HCC ) (Primary Dx); Malignant neoplasm metastatic to bone (HCC); Anemia, unspecified type Prostate cancer (HCC ) (Primary Dx) Chemotherapy Treatme nt (Docetaxel) Start: 02-10-2023 End: 02-10-2023 Patient encounter procedure [facility] Provider [facility] Department Start: 02-10-2023 Telephone encounter Juancho villarreal MD Work Phone: Cancer [facility] Comment on above: Transfusion Start: 02-10-2023 End: 02-11-2023 ambulatory CHAYITO DUARTE Facility:[facility] Start: 02-10-2023 End: 02-10-2023 ambulatory [facility] Facility:[facility] Start: 02-08-2023 Telephone encounter Financial Navigator Rah Work Phone: Financial Services Comment on above: Benefits Investigati on Start: 01-26-2023 End: 01-27-2023 Patient encounter procedure Lashell Esparza MD Work Phone: Radiation Oncology Comment on above: Malignant neoplasm o f prostate (HCC) (Primary Dx) Start: 01-26-2023 End: 01-27-2023 ambulatory Lashell ESPARZA Facility:[facility] Start: 01-19-2023 Telephone encounter Kelly mcclain RN Work Phone: Hematology/Oncology Comment on above: Bindery Machine Tender - O ther (PSA Results) Start: 01-18-2023 End: 01-18-2023 ambulatory [facility] Work Phone: Hematology/Oncology Comment on above: Prostate cancer (HCC ) (Primary Dx); Malignant neoplasm metastatic to bone (HCC) Prostate cancer (HCC ) (Primary Dx); Secondary malignant neoplasm of bone (HCC) Start: 01-18-2023 End: 01-18-2023 Patient encounter procedure Juancho Aldridge MD Work Phone: [facility] Start: 01-05-2023 End: 01-06-2023 ambulatory Chayito Duarte Facility:[facility] Start: 2022 End: 2022 ambulatory [facility] Facility:[facility] Start: 2022 End: 2022 ambulatory Brinda Marek CYCLING INSTRUCTOR.PLASTER MACHINE TENDER Work Phone: Hematology/Oncology Comment on above: Prostate cancer (HCC ) (Primary Dx); Malignant neoplasm metastatic to bone (HCC) Start: 2022 End: 2022 Patient encounter procedure Brinda Delatorre CYCLING INSTRUCTOR.PLASTER MACHINE TENDER Work Phone: [facility] Start: 12-14-2022 Telephone encounter Juancho villarreal MD Work Phone: Hematology/Oncology Comment on above: Lab Orders Start: 12-09-2022 End: 12-10-2022 ambulatory Chayito RyleeOmkar Duarte Facility:[facility] Start: 12-08-2022 End: 12-08-2022 ambulatory CHAYITO R[place]GEFIELD Facility:[facility] Start: 12-07-2022 ambulatory [facility] Facility: [facility] Start: 11-29-2022 Telephone encounter Kelly mcclain RN Work Phone: Hematology/Oncology Comment on above: Care Coordination (P ain; Fatigue) Start: 11-29-2022 End: 11-30-2022 ambulatory Isa MULLER Facility:[facility] Start: 11-29-2022 End: 11-29-2022 Patient encounter procedure Isa MULLER [facility] Start: 11-15-2022 End: 11-15-2022 ambulatory Juancho Aldridge MD Work Phone: Hematology/Oncology Comment on above: Prostate cancer (HCC ) (Primary Dx); Secondary malignant neoplasm of bone (HCC) Start: 11-15-2022 End: 11-15-2022 Patient encounter procedure Juancho Aldridge MD Work Phone: [facility] Start: 11-12-2022 Telephone encounter Kelly mcclain RN Work Phone: Hematology/Oncology Comment on above: Care Coordination (O ral Anti-Cancer Agent Follow Up) Care Coordination (L ab) Start: 11-05-2022 Telephone encounter Kelly mcclain RN Work Phone: Hematology/Oncology Comment on above: Care Coordination (M edication Start Date - Abiraterone & Prednisone) Care Coordination (T reatment Update) Start: 11-03-2022 End: 11-03-2022 ambulatory JUANCHO ALDRIDGE Facility:[facility] Start: 10-26-2022 End: 10-27-2022 ambulatory Kelly Sevilla RN Work Phone: Hematology/Oncology Comment on above: Oral Anti-cancer Age nt Education (Abiraterone & Prednisone) Start: 10-26-2022 Telephone encounter Kelly Guerrero RT(R) Radiology Pet CT Comment on above: Appointment Start: 10-21-2022 ambulatory Marcella Lainez [facility] Work Phone: [facility] Comment on above: New Medication - Zyt iga (Abiraterone) Start: 10-21-2022 E-mail encounter fro m caregiver Marcella Lainez [facility] Work Phone: [facility] Start: 10-19-2022 End: 10-19-2022 ambulatory NINA SMITH Facility:[facility] Start: 10-19-2022 End: 10-19-2022 ambulatory Juancho Aldridge MD Work Phone: Hematology/Oncology Comment on above: Prostate cancer (HCC ) (Primary Dx) Start: 10-19-2022 End: 10-19-2022 Patient encounter procedure Juancho Aldridge MD Work Phone: [facility] Start: 10-19-2022 Telephone encounter Juancho villarreal MD Work Phone: Cancer [facility] Comment on above: Nm Pet Request Medication Authoriza tion (Abiraterone approved - high copay) Start: 10-14-2022 End: 10-14-2022 ambulatory NINA SMITH Facility:[facility] Start: 10-04-2022 Telephone encounter Kelly mcclain RN Work Phone: Hematology/Oncology Comment on above: Care Coordination (N ew Pain) Start: 07-19-2022 End: 07-19-[address] NINA SMITH . Facility: Start: 07-08-2022 End: 07-08-2022 ambulatory Lab[facility] Work Phone: Hematology/Oncology Comment on above: Prostate cancer (HCC ) (Primary Dx); Bone metastases (HCC) Start: 07-08-2022 End: 07-08-2022 Patient encounter procedure Juancho Aldridge MD Work Phone: [facility] Start: 07-05-2022 Refill Juancho Aldridge MD Work Phone: Medical Records Comment on above: Refill Request; Refi ll Request Start: 06-21-2022 Patient encounter procedure [facility] Provider [facility] Department Start: 06-16-2022 End: 06-16-2022 Patient encounter procedure Lashell Esparza MD Work Phone: Radiation Oncology Comment on above: Malignant neoplasm o f prostate (HCC) (Primary Dx); Secondary malignant neoplasm of bone (HCC) Start: 06-07-2022 Telephone encounter Kelly mcclain RN Work Phone: Hematology/Oncology Comment on above: Care Coordination (M edication Question) Start: 06-04-2022 End: 06-04-2022 Patient encounter procedure Isa MULLER [facility] Start: 05-28-2022 Telephone encounter Kelly Sevilla Hematology/Oncology Comment on above: Care Coordination (P SA Results) Start: 05-26-2022 End: 05-27-[address] NINA SMITH . Facility: Start: 05-19-2022 Telephone encounter Roma Washington RN Work Phone: Hematology/Oncology Comment on above: Care Coordination (C 1D1 treatment follow up call) Start: 05-13-2022 Telephone encounter Kelly Sevilla Hematology/Oncology Comment on above: Care Coordination (X tandi Update) Start: 05-11-2022 Telephone encounter Kelly Sevilla Hematology/Oncology Comment on above: Care Coordination (M edication Start Date - Xtandi) Start: 05-10-2022 ambulatory Itzel Garcia icarcelia [facility] Work Phone: [facility] Comment on above: Xtandi Start: 05-10-2022 E-mail encounter fro irma caregiver Itzel CaiEzequielalcira [facility] Work Phone: [facility] Start: 05-03-2022 Refill Itzel CaiPreston arcelia [facility] Work Phone: [facility] Comment on above: Refill Request Start: 04-28-2022 Telephone encounter Kelly Sevilla Hematology/Oncology Comment on above: Care Coordination (T reatment Update) Start: 04-26-2022 Refill Sheila Damon [facility] Amb[facility] Services Start: 04-20-2022 ambulatory Kelly son RN Work Phone: Hematology/Oncology Comment on above: Oral Anti-cancer Age nt Education (Enzalutamide) Start: 04-16-2022 ambulatory Itzel CaiPreston icarcelia [facility] Work Phone: [facility] Comment on above: Free drug applicatio n Start: 04-16-2022 E-mail encounter fro irma caregiver Itzel Tyler [facility] Work Phone: [facility] Start: 04-13-2022 Telephone encounter Savanna Ceballos sser PA-C Work Phone: Hematology/Oncology Comment on above: Results (PSA); Treat ment Planning Start: 04-08-2022 End: 04-08-2022 ambulatory [facility] Work Phone: Hematology/Oncology Comment on above: Prostate cancer (HCC ) (Primary Dx) Prostate cancer (HCC ) (Primary Dx); Bone metastases (HCC) Start: 04-08-2022 End: 04-08-2022 Patient encounter procedure Savanna Adrian PA-C Work Phone: [employer] Start: 02-04-2022 Telephone encounter Kelly Sevilla Hematology/Oncology Comment on above: Care Coordination (M edication Update - Xgeva) Start: 01-07-2022 End: 01-07-2022 ambulatory [facility] Work Phone: Hematology/Oncology Comment on above: Prostate cancer (HCC ) (Primary Dx); Bone metastases (HCC) Non-Chemotherapy Eladio atment (Xgeva/) Start: 12-24-2021 End: 12-24-2021 ambulatory Juancho Aldridge MD Work Phone: Hematology/Oncology Comment on above: Prostate cancer (HCC ) (Primary Dx); Bone metastases (HCC) Start: 12-24-2021 End: 12-24-2021 Patient encounter procedure Juancho Aldridge MD Work Phone: [facility] Start: 12-18-2021 End: 12-18-2021 Patient encounter procedure Isa MULLER [facility] Start: 12-14-2021 End: 12-14-2021 Patient encounter procedure Isa MULLER [facility] Start: 12-11-2021 End: 12-11-[address] MATTHIAS FISH . Facility: Start: 12-09-2021 End: 12-10-[address] ISA MULLER . Facility:[facility] Start: 12-07-2021 End: 12-07-2021 Patient encounter procedure Isa MULLER [facility] Start: 12-02-2021 End: 12-02-2021 Patient encounter procedure Isa MULLER [facility] Start: 12-01-2021 End: 12-01-2021 Patient encounter procedure Isa MULLER [facility] Start: 11-28-2021 End: 11-28-[address] NINA SMITH . Facility:[facility] Start: 11-25-[address] NINA SMITH . Facil ity:[facility] Start: 11-24-2021 End: 11-24-[address] COLTEN MASON Facility:[facility] Start: 09-07-2021 End: 09-08-[address] NINA SMITH . Facility:[facility] Start: 04-21-2021 End: 04-21-2021 ambulatory CHOCOGIANA BONILLA MARS [facility] Procedures Date Procedure Procedure Detail Performing Clinician Start: 07-27-2023 Rp therapy intraveno us administration Karma Oconnor MD Work Phone: Start: 06-07-2023 MRI of head MD Chayito Durate Work Phone: Start: 04-27-2023 Rp therapy intraveno us administration Karma Oconnor MD Work Phone: Start: 03-03-2023 Basic metabolic pane l calcium total Juancho Aldridge MD Work Phone: Start: 03-03-2023 CBC + DIFF Juancho villarreal MD Work Phone: Start: 05-26-[address] COLTEN MASON Comment on above: Performed By: #### P SAD #### [facility] [address] [place] [address] Dr. Garo Whitmore Start: 12-02-2021 Transrectal biopsy o f prostate Isa MULLER Start: 11-28-[address] COLTEN MASON Comment on above: Performed By: #### U MICRO, ERUR #### [facility] [address] [address] [address] Garo Whitmore Start: 09-07-[address] COLTEN MASON Comment on above: Performed By: #### U MICRO, ERUR #### [facility] [address] [address] [address] Garo Whitmore Start: 08-22-2018 Transrectal biopsy o f prostate using ultrasound guidance Isa MULLER Start: 04-09-2009 Transrectal biopsy o f prostate using ultrasound guidance Isa MULLER Start: 02-18-2009 Transrectal biopsy o f prostate using ultrasound guidance Isa MULLER Angioplasty of blood vessel Isa MULLER Cataract extraction and insertion of intraocular lens Isa MULLER Colonoscopy Isa MULLER Tonsillectomy Isa MULLER Vasectomy Isa MULLER Plan of Treatment Date Care Activity Detail Author Start: 09-07-2026 Diabetes Screening Diabetes Screen[facility] Start: 08-29-2026 Diabetes Screening Diabetes Screen[facility] Start: 08-08-2026 Diabetes Screening Diabetes Screenin [facility] Start: 07-24-2026 Diabetes Screening Diabetes Screenin [facility] Start: 07-19-2026 Diabetes Screening Diabetes Screenin g [facility] Start: 06-28-2026 Diabetes Screening Diabetes Screenin g [facility] Start: 05-05-2026 Diabetes Screening Diabetes Screenin g [facility] Start: 04-21-2026 Diabetes Screening Diabetes Screenin g [facility] Start: 04-07-2026 Diabetes Screening Diabetes Screenin g [facility] Start: 03-30-2026 Diabetes Screening Diabetes Screenin g [facility] Start: 03-17-2026 Diabetes Screening Diabetes Screenin g [facility] Start: 03-03-2026 Diabetes Screening Diabetes Screenin g [facility] Start: 02-24-2026 Diabetes Screening Diabetes Screenin g [facility] Start: 02-10-2026 Diabetes Screening Diabetes Screenin g [facility] Start: 01-18-2026 DIABETES SCREEN [facility]CREEN [facility] Start: 01-18-2026 Diabetes Screening Diabetes Screenin g [facility] Start: 2025 DIABETES SCREEN DIABETES SCREEN [facility] Start: 12-08-2025 DIABETES SCREEN [facility]CREEN [facility] Start: 10-14-2025 DIABETES SCREEN DIABETES SCREEN [facility] Start: 07-05-2025 DIABETES SCREEN DIABETES SCREEN [facility] Start: 04-08-2025 DIABETES SCREEN DIABETES SCREEN [facility] Start: 02-04-2025 DIABETES SCREEN DIABETES SCREEN [facility] Start: 12-24-2024 DIABETES SCREEN DIABETES SCREEN [facility] Start: 01-09-2024 ambulatory Ambulatory Facility:[facility] Start: 12-12-2023 ambulatory Ambulatory Facility:[facility] Start: 11-14-2023 ambulatory Ambulatory Facility:[facility] Start: 08-12-2023 End: 11-11-2023 CBC W Auto Differential panel - Blood CBC + DIFF Lab Routine Prostate cancer (HCC) 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 Cancer related pain Seizure disorder (HCC) Expected: 08/12/2023, Expires: 11/11/2023 [facility] Work Phone: Comment on above: Expected: 08/12/2023 , Expires: 11/11/2023 Start: 08-12-2023 End: 11-11-2023 Comprehensive metabolic 2000 panel - Serum or Plasma COMP METABOLIC PANEL Lab Routine Prostate cancer (HCC) 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 Cancer related pain Seizure disorder (HCC) Expected: 08/12/2023, Expires: 11/11/2023 [facility] Work Phone: Comment on above: Expected: 08/12/2023 , Expires: 11/11/2023 Start: 08-12-2023 End: 11-11-2023 Prostate specific Ag [Mass/volume] in Serum or Plasma PSA/PROSTSPECAG DIAG Lab Routine Prostate cancer (HCC) 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 Cancer related pain Seizure disorder (HCC) Expected: 08/12/2023, Expires: 11/11/2023 [facility] Work Phone: Comment on above: Expected: 08/12/2023 , Expires: 11/11/2023 Start: 08-09-2023 End: 11-08-2023 Basic metabolic 2000 panel - Serum or Plasma BASIC METABOLIC PNL Lab Routine Prostate cancer (HCC) Anemia due to antineoplastic chemotherapy Expected: 08/09/2023, Expires: 11/08/2023 [facility] Work Phone: Comment on above: Expected: 08/09/2023 , Expires: 11/08/2023 Start: 08-09-2023 End: 11-08-2023 CBC W Auto Differential panel - Blood CBC + DIFF Lab Routine Prostate cancer (HCC) Anemia due to antineoplastic chemotherapy Expected: 08/09/2023, Expires: 11/08/2023 [facility] Work Phone: Comment on above: Expected: 08/09/2023 , Expires: 11/08/2023 Start: 06-07-2023 [facility] Start: 06-06-2023 Hospital admission [facility] Start: 06-06-2023 Referral to neurologist [facility] Start: 05-23-2023 Advance Directive Discussion Advance Directive Discussion [facility] Start: 05-23-2023 Behavioral Health Screening Behavioral Health Screening [facility] Start: 05-23-2023 Depression Assessment Depression Ass essment [facility] Start: 04-26-2023 End: 05-25-2024 Radex sacrum & coccyx minimum 2 views XR SACRUM/COCCYX 3V AP/LAT Radiology Routine Prostate cancer (HCC) Malignant neoplasm metastatic to bone (HCC) Left buttock pain Expected: 04/26/2023, Expires: 05/25/2024 [facility] Work Phone: Comment on above: Expected: 04/26/2023 , Expires: 05/25/2024 Start: 04-26-2023 End: 05-25-2024 XR FEMUR GENERAL 2V AP/LAT LEFT XR FEMUR GENERAL 2V AP/LAT LEFT Radiology Routine Prostate cancer (HCC) Malignant neoplasm metastatic to bone (HCC) Left buttock pain Expected: 04/26/2023, Expires: 05/25/2024 [facility] Work Phone: Comment on above: Expected: 04/26/2023 , Expires: 05/25/2024 Start: 04-26-2023 End: 05-25-2024 XR HIP GENERAL 3V PELV/AP/LAT LEFT XR HIP GENERAL 3V PELV/AP/LAT LEFT Radiology Routine Prostate cancer (HCC) Malignant neoplasm metastatic to bone (HCC) Left buttock pain Expected: 04/26/2023, Expires: 05/25/2024 [facility] Work Phone: Comment on above: Expected: 04/26/2023 , Expires: 05/25/2024 Start: 04-21-2023 End: 07-21-2023 Comprehensive metabolic 2000 panel - Serum or Plasma COMP METABOLIC PANEL Lab Routine Anemia due to antineoplastic chemotherapy Prostate cancer (HCC) Malignant neoplasm metastatic to bone (HCC) Expected: 04/21/2023 (Approximate), Expires: 07/21/2023 [facility] Work Phone: Comment on above: Expected: 04/21/2023 (Approximate), Expires: 07/21/2023 Start: 04-21-2023 End: 07-21-2023 Prostate specific Ag [Mass/volume] in Serum or Plasma PSA/PROSTSPECAG DIAG Lab Routine Anemia due to antineoplastic chemotherapy Prostate cancer (HCC) Malignant neoplasm metastatic to bone (HCC) Expected: 04/21/2023 (Approximate), Expires: 07/21/2023 [facility] Work Phone: Comment on above: Expected: 04/21/2023 (Approximate), Expires: 07/21/2023 Start: 03-31-2023 End: 06-30-2023 CBC W Auto Differential panel - Blood CBC + DIFF Lab Routine Platelets decreased (HCC) Prostate cancer (HCC) 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 Expected: 03/31/2023, Expires: 06/30/2023 [facility] Work Phone: Comment on above: Expected: 03/31/2023 , Expires: 06/30/2023 Start: 03-31-2023 End: 06-30-2023 Comprehensive metabolic 2000 panel - Serum or Plasma COMP METABOLIC PANEL Lab Routine Platelets decreased (HCC) Prostate cancer (HCC) 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 Expected: 03/31/2023, Expires: 06/30/2023 [facility] Work Phone: Comment on above: Expected: 03/31/2023 , Expires: 06/30/2023 Start: 03-30-2023 End: 06-29-2023 CIRCULATING TUMOR DNA GENOMIC ANALYSIS FOR SOLID TUMORS [facility] Work Phone: Comment on above: Expected: 03/30/2023 , Expires: 06/29/2023 Start: 03-17-2023 End: 06-16-2023 CBC W Auto Differential panel - Blood CBC + DIFF Lab Routine Malignant neoplasm metastatic to bone (HCC) Prostate cancer (HCC) Expected: 03/17/2023, Expires: 06/16/2023 [facility] Work Phone: Comment on above: Expected: 03/17/2023 , Expires: 06/16/2023 Start: 03-17-2023 End: 06-16-2023 Comprehensive metabolic 2000 panel - Serum or Plasma COMP METABOLIC PANEL Lab Routine Malignant neoplasm metastatic to bone (HCC) Prostate cancer (HCC) Expected: 03/17/2023, Expires: 06/16/2023 [facility] Work Phone: Comment on above: Expected: 03/17/2023 , Expires: 06/16/2023 Start: 03-17-2023 End: 06-16-2023 Prostate specific Ag [Mass/volume] in Serum or Plasma PSA/PROSTSPECAG DIAG Lab Routine Malignant neoplasm metastatic to bone (HCC) Prostate cancer (HCC) Expected: 03/17/2023, Expires: 06/16/2023 [facility] Work Phone: Comment on above: Expected: 03/17/2023 , Expires: 06/16/2023 Start: 01-21-2023 Covid-19 Vaccine ( season) Covid-19 Vaccine () [facility] Start: 01-21-2023 Influenza vaccination [facility] Start: 01-18-2023 End: 03-20-2023 CBC W Auto Differential panel - Blood CBC + DIFF Lab Routine Prostate cancer (HCC) Malignant neoplasm metastatic to bone (HCC) Expected: 01/18/2023, Expires: 03/20/2023 [facility] Work Phone: Comment on above: Expected: 01/18/2023 , Expires: 03/20/2023 Start: 01-18-2023 End: 03-20-2023 Comprehensive metabolic 2000 panel - Serum or Plasma COMP METABOLIC PANEL Lab Routine Prostate cancer (HCC) Malignant neoplasm metastatic to bone (HCC) Expected: 01/18/2023, Expires: 03/20/2023 [facility] Work Phone: Comment on above: Expected: 01/18/2023 , Expires: 03/20/2023 Start: 01-18-2023 End: 03-20-2023 Prostate specific Ag [Mass/volume] in Serum or Plasma PSA/PROSTSPECAG DIAG Lab Routine Prostate cancer (HCC) Malignant neoplasm metastatic to bone (HCC) Expected: 01/18/2023, Expires: 03/20/2023 [facility] Work Phone: Comment on above: Expected: 01/18/2023 , Expires: 03/20/2023 Start: 12-08-2022 End: 02-07-2023 CBC W Auto Differential panel - Blood CBC + DIFF Lab Routine Prostate cancer (HCC) Expected: 12/08/2022, Expires: 02/07/2023 [facility] Work Phone: Comment on above: Expected: 12/08/2022 , Expires: 02/07/2023 Start: 12-08-2022 End: 02-07-2023 Comprehensive metabolic 2000 panel - Serum or Plasma COMP METABOLIC PANEL Lab Routine Prostate cancer (HCC) Expected: 12/08/2022, Expires: 02/07/2023 [facility] Work Phone: Comment on above: Expected: 12/08/2022 , Expires: 02/07/2023 Start: 12-08-2022 End: 02-07-2023 Prostate specific Ag [Mass/volume] in Serum or Plasma PSA/PROSTSPECAG DIAG Lab Routine Prostate cancer (HCC) Expected: 12/08/2022, Expires: 02/07/2023 [facility] Work Phone: Comment on above: Expected: 12/08/2022 , Expires: 02/07/2023 Start: 10-19-2022 End: 12-19-2022 Prostate specific Ag [Mass/volume] in Serum or Plasma PSA/PROSTSPECAG DIAG Lab Routine Prostate cancer (HCC) Expected: 10/19/2022, Expires: 12/19/2022 [facility] Work Phone: Comment on above: Expected: 10/19/2022 , Expires: 12/19/2022 Start: 10-19-2022 End: 12-19-2022 Testosterone [Mass/volume] in Serum or Plasma TESTOSTERONE TOTAL Lab Routine Prostate cancer (HCC) Expected: 10/19/2022, Expires: 12/19/2022 [facility] Work Phone: Comment on above: Expected: 10/19/2022 , Expires: 12/19/2022 Start: 10-05-2022 End: 12-05-2022 CBC W Auto Differential panel - Blood CBC + DIFF Lab Routine Prostate cancer (HCC) Expected: 10/05/2022 (Approximate), Expires: 12/05/2022 [facility] Work Phone: Comment on above: Expected: 10/05/2022 (Approximate), Expires: 12/05/2022 Start: 10-05-2022 End: 12-05-2022 Comprehensive metabolic 2000 panel - Serum or Plasma COMP METABOLIC PANEL Lab Routine Prostate cancer (HCC) Expected: 10/05/2022 (Approximate), Expires: 12/05/2022 [facility] Work Phone: Comment on above: Expected: 10/05/2022 (Approximate), Expires: 12/05/2022 Start: 10-05-2022 End: 12-05-2022 Prostate specific Ag [Mass/volume] in Serum or Plasma PSA/PROSTSPECAG DIAG Lab Routine Prostate cancer (HCC) Expected: 10/05/2022 (Approximate), Expires: 12/05/2022 [facility] Work Phone: Comment on above: Expected: 10/05/2022 (Approximate), Expires: 12/05/2022 Start: 08-26-2022 COVID-19 VACCINE (5 - Moderna series) COVID-19 VACCINE (5 - Moderna series) [facility] Start: 06-22-2022 Covid-19 Vaccine (5 - Mixed Product risk series) Covid-19 Vaccine (5 - Mixed Product risk series) [facility] Start: 06-08-2022 End: 08-08-2022 CBC W Auto Differential panel - Blood CBC + DIFF Lab Routine Prostate cancer (HCC) Expected: 06/08/2022 (Approximate), Expires: 08/08/2022 [facility] Work Phone: Comment on above: Expected: 06/08/2022 (Approximate), Expires: 08/08/2022 Start: 06-08-2022 End: 08-08-2022 Comprehensive metabolic 2000 panel - Serum or Plasma COMP METABOLIC PANEL Lab Routine Prostate cancer (HCC) Expected: 06/08/2022 (Approximate), Expires: 08/08/2022 [facility] Work Phone: Comment on above: Expected: 06/08/2022 (Approximate), Expires: 08/08/2022 Start: 06-08-2022 End: 08-08-2022 Prostate specific Ag [Mass/volume] in Serum or Plasma PSA/PROSTSPECAG DIAG Lab Routine Prostate cancer (HCC) Expected: 06/08/2022 (Approximate), Expires: 08/08/2022 [facility] Work Phone: Comment on above: Expected: 06/08/2022 (Approximate), Expires: 08/08/2022 Start: 05-23-2022 ADVANCE DIRECTIVE DISCUSSION ADVANCE DIRECTIVE DISCUSSION [facility] Start: 05-23-2022 DEPRESSION ASSESSMENT DEPRESSION ASS ESSMENT [facility] Start: 02-04-2022 End: 04-06-2022 CBC W Auto Differential panel - Blood CBC + DIFF Lab Routine Prostate cancer (HCC) Bone metastases (HCC) Expected: 02/04/2022 (Approximate), Expires: 04/06/2022 [facility] Work Phone: Comment on above: Expected: 02/04/2022 (Approximate), Expires: 04/06/2022 Start: 02-04-2022 End: 04-06-2022 Comprehensive metabolic 2000 panel - Serum or Plasma COMP METABOLIC PANEL Lab Routine Prostate cancer (HCC) Bone metastases (HCC) Expected: 02/04/2022 (Approximate), Expires: 04/06/2022 [facility] Work Phone: Comment on above: Expected: 02/04/2022 (Approximate), Expires: 04/06/2022 Start: 02-04-2022 End: 04-06-2022 Prostate specific Ag [Mass/volume] in Serum or Plasma PSA/PROSTSPECAG DIAG Lab Routine Prostate cancer (HCC) Bone metastases (HCC) Expected: 02/04/2022 (Approximate), Expires: 04/06/2022 [facility] Work Phone: Comment on above: Expected: 02/04/2022 (Approximate), Expires: 04/06/2022 Start: 01-21-2022 Influenza vaccination INFLUENZA (#1) [facility] Start: 08-28-2021 COVID-19 VACCINE (4 - Booster for Moderna series) COVID-19 VACCINE (4 - Booster for Moderna series) [facility] Start: 06-24-2021 COVID-19 VACCINE (4 - Booster for Moderna series) COVID-19 VACCINE (4 - Booster for Moderna series) [facility] Start: 05-23-2021 ADVANCE DIRECTIVE DISCUSSION ADVANCE DIRECTIVE DISCUSSION [facility] Start: 05-23-2021 DEPRESSION ASSESSMENT DEPRESSION ASS ESSMENT [facility] Start: 12-20-2004 Pneumococcal Vaccine : 65+ Years (1 - PCV) Pneumococcal Vaccine: 65+ Years (1 - PCV) [facility] Start: 12-20-2004 PNEUMOCOCCAL: 65+ (1 - PCV) PNEUMOCOCCAL: 65+ (1 - PCV) [facility] Start: 1999 RSV Vaccine (1 - 1-d ose 60+ series) RSV Vaccine (1 - 1-dose 60+ series) [facility] Start: 12-20-1989 SHINGRIX VACCINE (1 of 2) SHINGRIX VACCINE (1 of 2) [facility] Start: 12-20-1958 Shingrix Vaccine (1 of 2) Shingrix Vaccine (1 of 2) [facility] Start: 12-20-1958 Urine microalbumin profile [facility] Start: 12-20-1945 Pneumococcal Vaccine : 65+ (1 - PCV) Pneumococcal Vaccine: 65+ (1 - PCV) [facility] Start: 12-20-1945 Pneumococcal Vaccine : 65+ (1 of 2 - PCV) Pneumococcal Vaccine: 65+ (1 of 2 - PCV) [facility] CBC W Auto Different ial panel - Blood CBC + DIFF Lab Routine Prostate cancer (HCC) 02/10/2023 10:20 AM [facility] Work Phone: CBC W Auto Different ial panel - Blood CBC + DIFF Lab Routine Prostate cancer (HCC) 03/03/2023 1:47 PM [facility] Work Phone: End: 04-06-2024 CBC W Auto Differential panel - Blood CBC + DIFF Lab Routine Anemia due to antineoplastic chemotherapy Prostate cancer (HCC) Malignant neoplasm metastatic to bone (HCC) Once per week for 50 Occurrences starting 04/07/2023 until 04/06/2024 [facility] Work Phone: Comment on above: Once per week for 50 Occurrences starting 04/07/2023 until 04/06/2024 End: 11-18-2023 NM PET/CT PROSTATE WHOLE BODY IMAGING NM PET/CT PROSTATE WHOLE BODY IMAGING Radiology Routine Prostate cancer (HCC) 1 Occurrences starting 10/19/2022 until 11/18/2023 [facility] Work Phone: Comment on above: 1 Occurrences starti ng 10/19/2022 until 11/18/2023 Patient Education Seizures, Adul t (DC) Levetiracetam [facility] Work Phone: Patient referral [facility] Work Phone: End: 10-08-2024 PET+CT Guidance for localization of tumor of Whole body-- W [id number] IV NM PET/CT PROSTATE WHOLE BODY IMAGING Radiology Routine Prostate cancer (HCC) 1 Occurrences starting 09/09/2023 until 10/08/2024 [facility] Work Phone: Comment on above: 1 Occurrences starti ng 09/09/2023 until 10/08/2024 [facility] Immunizations Immunization Date Immunization Notes Care Provider [facility] 04-06-2023 influenza (aIIV4) vaccine, age 65+ yr, quadrivalent, PF (FLUAD QUAD) [facility] Work Phone: [facility] 04-06-2023 influenza nasal, unspecified formulation [facility] Work Phone: [facility] 04-06-2023 influenza virus vaccine, unspecified formulation Isa MULLER [facility] [place] 04-27-2022 SARS-CoV-2 (COVID-19 ) [id number] Isa MULLER [facility] 03-15-2022 influenza (aIIV4) vaccine, age 65+ yr, quadrivalent, PF (FLUAD QUAD) Juancho Aldridge MD Work Phone: [facility] 03-15-2022 influenza nasal, unspecified formulation Brinda Delatorre CYCLING INSTRUCTOR.PLASTER MACHINE TENDER Work Phone: [facility] 03-15-2022 influenza virus vaccine, unspecified formulation Isa MULLER [facility] 04-29-2021 SARS-CoV-2 (COVID-19 ) mRNA BNT-162b2 vax Isa MULLER [facility] 03-11-2021 influenza (aIIV4) vaccine, age 65+ yr, quadrivalent, PF (FLUAD QUAD) Juancho Aldridge MD Work Phone: [facility] 03-11-2021 influenza nasal, unspecified formulation Brinda Delatorre CYCLING INSTRUCTOR.PLASTER MACHINE TENDER Work Phone: [facility] 03-11-2021 influenza virus vaccine, unspecified formulation Isaalcira MULLER [facility] 07-22-2020 SARS-CoV-2 (COVID-19 ) mRNA-1273 vaccine Isa MULLER [facility] 06-24-2020 SARS-CoV-2 (COVID-19 ) mRNA-1273 vaccine Isa MULLER [facility] 05-23-2020 SARS-CoV-2 (COVID-19 ) mRNA-1273 vaccine Isa MULLER [facility] [place] Comment on above: Result Comment: pt i s fully vaccinated but does not have his dates with him 03-07-2020 influenza (aIIV4) vaccine, age 65+ yr, quadrivalent, PF (FLUAD QUAD) Juancho Aldridge MD Work Phone: [facility] 03-07-2020 influenza nasal, unspecified formulation Brinda Marek CYCLING INSTRUCTOR.PLASTER MACHINE TENDER Work Phone: [facility] 03-07-2020 influenza virus vaccine, unspecified formulation Isaalcira MULLER [facility] 04-13-2019 influenza nasal, unspecified formulation Brinda Marek CYCLING INSTRUCTOR.PLASTER MACHINE TENDER Work Phone: [facility] 04-13-2019 influenza virus vaccine, unspecified formulation Isa MULLER [facility] 04-13-2019 influenza, high dose seasonal, preservative-free Juancho Aldridge MD Work Phone: [facility] 03-22-2018 influenza nasal, unspecified formulation Brinda Delatorre CYCLING INSTRUCTOR.PLASTER MACHINE TENDER Work Phone: [facility] 03-22-2018 influenza virus vaccine, unspecified formulation Isa MULLER [facility] 03-22-2018 influenza, high dose seasonal, preservative-free Juancho Aldridge MD Work Phone: [facility] 06-04-2015 influenza nasal, unspecified formulation Brinda Delatorre CYCLING INSTRUCTOR.PLASTER MACHINE TENDER Work Phone: [facility] 06-04-2015 influenza virus vaccine, unspecified formulation Isa MULLER [facility] 06-04-2015 influenza, seasonal, injectable, preservative free Juancho Aldridge MD Work Phone: [facility] NEGATED: Highlighted row has not occurred!02-23-2023 influenza virus vaccine, unspecified formulation Isa MULLER [facility] [place] Payers Date Payer Category Payer Self-pay 2021 Medicare MMO MEDICARE MMO MEDADVANTAGE PPO [id number] 2021-Present [phone] [address] [place] [address] PPO [id number] 2021 Medicare [id number] 1959 Medicare [id number] 1939 Unknown [id number] 2.16.840.1.237534.3.579.2.5 93 1939 Unknown [id number] 2.16.840.1.205107.3.579.2.5 93 1939 Unknown [id number] 2.16.840.1.727091.3.579.2.5 93 1939 Unknown [id number] 2.16.840.1.394646.3.579.2.5 93 1939 Unknown [id number] 2.16.840.1.655196.3.579.2.5 93 1939 Unknown [id number] 2.16.840.1.568277.3.579.2.5 93 1939 Unknown [id number] 2.16.840.1.198584.3.579.2.5 93 1939 Unknown [id number] 2.16.840.1.342930.3.579.2.5 93 1939 Unknown [id number] 2.16.840.1.889147.3.579.2.1 259 1939 Unknown [id number] 2.16.840.1.124146.3.579.2.1 259 1939 Unknown [id number] 2.16.840.1.644311.3.579.2.7 27 1939 Unknown [id number] 2.16.840.1.141303.3.579.2.7 27 1939 Unknown [id number] 2.16.840.1.376682.3.579.2.7 1939 Unknown [id number] 2.16.840.1.528748.3.579.2.7 1939 Unknown [id number] 2.16.840.1.476276.3.579.2.7 1939 Unknown [id number] 2.16.840.1.764327.3.579.2.7 1939 Unknown [id number] 2.16.840.1.747043.3.579.2.7 1939 Unknown [id number] 2.16.840.1.239861.3.579.2.7 1939 Unknown [id number] 2.16.840.1.958386.3.579.2.7 1939 Unknown [id number] 2.16.840.1.691622.3.579.2.7 1939 Unknown [id number] 2.16.840.1.435707.3.579.2.7 1939 Unknown [id number] 2.16.840.1.479666.3.579.2.7 1939 Unknown [id number] 2.16.840.1.266722.3.579.2.7 1939 Unknown [id number] 2.16.840.1.809784.3.579.2.7 1939 Unknown [id number] 2.16.840.1.255307.3.579.2.7 27 Medicare Medicare [id number] Unknown [id number] 2.16.840.1.596430.3.579.2.5 31 Social History Date Type Detail Facility Start: 07-11-2020 End: 06-16-2022 Tobacco smoking status Ex-smoker (finding) [facility] [place] Comment on above: Pt. states quit smok ing 50 yrs ago. Start: 10-19-2022 End: 07-27-2023 Sex Assigned At Male [facility] [place] Start: 12-24-2021 End: 04-08-2022 Alcohol intake Ex-drinker (finding) [facility] Start: 1940 Sex Assigned At Male [facility] Start: 12-14-2021 End: 04-08-2022 Exposure to SARS-CoV-2 (event) Not sure [facility] End: 05-23-1966 History of tobacco use Current smoker [facility] History of tobacco use Passive smoker [facility] Start: 02-04-2022 End: 06-16-2022 Tobacco use and exposure Smokeless tobacco non-user [facility] Tobacco smoking status Never [facility] Comment on above: Pt. states quit smok ing 50 yrs ago. End: 05-23-1966 History of tobacco use Cigarette Smoker [facility] Start: 06-16-2022 End: 10-19-2022 Cigarettes smoked current (pack per day) - Reported 1 [facility] Start: 06-16-2022 End: 09-08-2023 Alcohol intake Current drinker of alcohol (finding) [facility] Start: 06-16-2022 Alcohol Comment occ [facility] Start: 2021 Gender identity Identifies as male gender (finding) [facility] Start: 2021 Sexual orientation Heterosexual (fin ding) [facility] Start: 04-15-2023 Alcohol intake Defer [facility] Goals Date Patient Goal Desired Activity /State Functional Status Date Assessment Result Facility 06-07-2023 Functional status Patient at Baseline [facility] Work Phone: 05-27-2023 Functional Status N/A [facility] 11-29-2022 Functional Status N/A [facility] 01-13-2023 Functional Status N/A [facility] 12-14-2021 Functional Status N/A [facility] [place] 12-02-2021 Functional Status N/A [facility] [place] 12-01-2021 Functional Status N/A [facility] [place] Mental Status Date Assessment Result Facility 06-07-2023 Cognitive function Cognitive Sta tus Patient at Baseline [facility] Work Phone: Clinical Notes 12-01-2021 to 09-09-2023 Telephone Encounter - Kelly Sevilla RN - 09/09/2023 3:45 PM EDTTelephone Encounter - Brinda Delatorre APRN.CNP - 09/09/2023 3:31 PM EDTPKeshia lilly APRN.CNP - 09/09/2023 3:06 PM EDT Note Date & Type Note Facility 09-09-2023 Note [facility] 09-09-2023 Miscellaneous Notes Pt's spouse notified and verbalizes understanding. Advised spouse to notify our office if she takes him to the hospital. Kelly Sevilla RN If she continues to think he is deteriorating she needs to take him to the ER. Thanks, Brinda Delatorre APRN.PLASTER MACHINE TENDER Pt's spouse calls w/ concerns regarding the pt's increased fatigue. States, He's just so weak. Pt up and moving t/o the house. Just slower than normal. Still able to complete his ADL's independently. states that he has no get up and go. Pt eating and drinking w/o difficulty. Pt also c/o leg pain. Pain controlled w/ Aleve and a heating pad. Explained to spouse that the pt's fatigue is likely a combination of his prostate cancer, low testosterone, and anemia. Encouraged frequent rest and naps t/o the day. Advised he continue the aleve and heat for his leg discomfort. Spouse verbalizes understanding. Brinda: Any other recommendations? Kelly Sevilla RN documented in this encounter [facility] 09-09-2023 History of Presen t illness Narrative Most recently labs show rise in PSA. Will obtain imaging to determine efficacy prior to proceeding with next Pluvicto. I spoke with patient/, he is having a lot of fatigue, and has been mostly sleeping over the last week. They are agreeable to this plan. Orders placed for imaging, will arrange for pt to follow-up with Dr. Oconnor once this is obtained. Keshia Velazquez APRN CNP Genitourinary Oncology Advance Practice Provider September 09, 2023 documented in this encounter [facility] 09-08-2023 Note [facility] 09-08-2023 History of Presen t illness Narrative PATIENT NAME: Karin Mart DATE: 09/08/2023 PRIMARY CARE PHYSICIAN: Dr. Nina Smith OTHER PHYSICIANS: Dr. Muller, Dr. Karma Oconnor Portions of this encounter note have been copied from the note from 08/30/2023 and has been updated where appropriate, and reflect my current medical decision making from today. CC: This is an 82 year old male with metastatic prostate cancer, seen for scheduled follow-up. INTERIM HISTORY: Karin Mart returns for follow-up. He has noticed increasing fatigue. He has also noticed increased shortness of breath. He developed a skin lesion to his left thigh which he thinks is from a spider bite. He saw his PCP who started him on an antibiotic. He denies fevers, chills and infection. No bleeding or abnormal bruising. MEDICATIONS: Current Outpatient Medications Medication Sig cephALEXin (KEFLEX) 500 mg capsule levETIRAcetam (KEPPRA) 500 mg tablet Take 1 tablet by mouth every 12 hours. naproxen sodium (ALEVE ORAL) Take by mouth. tamsulosin (FLOMAX) 0.4 mg Take by mouth twice daily. CALCIUM-VITAMIN D3 ORAL Take 1 tablet by mouth once daily. No current facility-administered medications for this visit. ALLERGIES: ALLERGIES No Known Allergies PAST MEDICAL HISTORY: PAST MEDICAL HISTORY Diagnosis Date Prostate cancer (HCC) PAST SURGICAL HISTORY: PAST SURGICAL HISTORY Procedure Laterality Date COLONOSCOPY PROSTATE BIOPSY FAMILY HISTORY: FAMILY HISTORY Problem Relation Age of Onset Emphysema Father SOCIAL HISTORY: Social History Tobacco Use Smoking status: Former Packs/day: 1.00 Years: 5.00 Additional pack years: 0.00 Total pack years: 5.00 Types: Cigarettes Quit date: 1966 Years since quittin.3 Passive exposure: Past Smokeless tobacco: Never Vaping Use Vaping Use: Never used Substance Use Topics Alcohol use: Yes Comment: occ Drug use: Never REVIEW OF SYSTEMS: General: No weight loss, malaise or fevers. HEENT: Negative for frequent or significant headaches. No changes in hearing or vision, no nose bleeds or other nasal problems. Respiratory: Negative for cough, wheezing or shortness of breath. Cardiovascular: Negative for chest pain, leg swelling or palpitations. GI: Negative for abdominal discomfort, blood in stools or black stools or change in bowel habits. : No history of dysuria, frequency or incontinence. Musculoskeletal: Negative for joint pain or swelling, back pain and muscle pain. Skin: +healing incision on left forearm Hematology/Lymphology: Negative for prolonged bleeding, bruising easily or swollen nodes. Neuro: No history of headaches, syncope, paralysis, seizures or tremors. PHYSICAL EXAM: BP 123/50 Pulse 74 Temp 36.2 C (97.2 F) (Temporal) Resp 16 Ht 173 cm (5' 8.11 ) Wt 71.1 kg (156 lb 12 oz) SpO2 95% BMI 23.76 kg/m ECOG 1 General: Alert and oriented, no distress, pleasant and cooperative. Heart: Regular, normal S1 and S2, no murmurs, rubs, or gallops. Lungs: Clear to auscultation bilaterally. Abdomen: Benign. Extremities: Feet/ankles without edema, posterior tibial pulses full and symmetrical. PATHOLOGY: 12/02/2021 TRUS biopsy ([facility]) Gosia score 4+5=9 in multiple cores LABS: Hemoglobin (g/dL) Date Value 09/08/2023 10.3 Hematocrit (%) Date Value 09/08/2023 31.7 WBC (k/uL) Date Value 09/08/2023 1.62 Platelet Count (k/uL) Date Value 09/08/2023 81 PSA 03/16/2021 10.3 11/24/2021 629.7 12/24/2021 792 02/04/2022 257 04/08/2022 320.0 07/05/2022 119.7 10/14/2022 313.7 11/03/2022 359.9 12/08/2022 323.6 01/18/2023 742.7 02/10/2023 843.8 02/15/2023 857.4 03/17/2023 1,313 04/21/2023 1,017 05/19/2023 685 06/28/2023 583.5 07/25/2023 552.0 RADIOLOGY/OTHER STUDIES: 11/03/2022 PSMA PET scan IMPRESSION: HEAD/NECK: * No PSMA-expressing metastases. CHEST: * No PSMA-expressing metastases. ABDOMENS/PELVIS: * Abnormal diffuse tracer uptake in the prostate bilateral peripheral zones extending in the bilateral seminal vesicles compatible with PSMA expressing prostate cancer. * Previous pelvic lymphadenopathy on CT 11/24/2021 has resolved. A focus of tracer activity along the right aspect of the rectum which may be a small tracer avid perirectal node. No tracer lymphadenopathy otherwise. * Prostatomegaly and chronic circumferential bladder wall thickening, likely component of urinary outflow obstruction. BONES/EXTREMITIES: * Worsened widespread tracer avid sclerotic osseous metastases with Superscan appearance. 12/09/2021 Nuclear bone scan ([facility]) Diffuse and extensive abnormal foci throughout the bones including the spine, ribs, pelvis, calvarium, scapula, humerus, sternum and femurs. Consistent with diffuse and extensive bone metastases. 11/24/2021 CT Abd/Pelvis ([facility]) Unremarkable bowel. No acute findings. Wall thickening of the urinary bladder likely due to muscular hypertrophy. Numerous skeletal lesions and enlarged prostate suggest prostate cancer. 11/24/2021 chest x-ray ([facility]) Hyperexpanded lungs. No acute cardiopulmonary process. ASSESSMENT/PLAN: 1. Prostate cancer (HCC) - ICD9: 185, ICD10: C61 (primary diagnosis) Metastatic prostate cancer initially diagnosed November 2021. The patient presented with a markedly elevated PSA. Prostate biopsy 12/02/2021 confirmed adenocarcinoma, Gosia 4+5=9. Baseline bone scan 12/09/2021 revealed extensive bone metastases. CT abdomen/pelvis and chest x-ray revealed no evidence of visceral metastases. 12/14/2021 the patient received Lupron 45 mg IM and has continued every 6 months since (given by Dr. Muller). Casodex 50 mg daily started November 2021. The patient's PSA initially dropped, but increased by March 2022. March 2022 Casodex was discontinued and second line antiandrogen therapy with enzalutamide started. On second line hormonal therapy the patient's PSA initially dropped, but increased by September 2022. PSMA PET scan 11/03/2022 revealed significant progressive disease in bones ( SuperScan ). Subsequently it was elected to change treatment to third line hormonal therapy with abiraterone/prednisone starting 11/06/2022. The patient's PSA initially stabilized, but by 01/18/2023 increased significantly. He was seen by radiation oncology, and because of his anemia and extensive bone/bone marrow involvement it was felt the patient was not a candidate for Xofigo. Subsequently abiraterone/prednisone was discontinued and the patient's treatment was changed to Taxotere. Because of his age and performance status it was elected to treat with low-dose Taxotere 3 weeks on 1 week off. Cycle 1 started 01/21/2023. The patient remained clinically stable on chemotherapy, but ultimately PSA increased significantly. Taxotere was discontinued after cycle 2-day 8 on 03/24/2023. Subsequently he was referred to [facility] (Dr. Oconnor) and recommendations were to proceed with Pluvicto, with plans to give every 6 weeks x 6 cycles as tolerated. He received his first treatment on 04/27/2023. Most recent treatment with cycle 3 given 07/27/2023. Currently the patient has developing leukopenia and thrombocytopenia, otherwise is clinically stable. The patient will receive EPO for anemia today. He will return in 3 weeks for follow-up. His next Pluvicto is scheduled for 09/14/2023. He will also continue with Lupron every [address] Muller, next injection due November 2023. 2. Bone metastases (HCC) - ICD9: 198.5, ICD10: C79.51 Extensive bone metastases on baseline bone scan 12/09/2021. Antiresorptive therapy with Xgeva started 01/07/2022 with plans to give every 3 months. Next injection due September 2023. 3. 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 Retacrit started 03/24/2023 for the treatment of chemotherapy-induced anemia, with plans to give weekly as needed for hemoglobin less than 10. Will also arrange for blood transfusion as needed to maintain hemoglobin greater than 10 prior to Pluvicto treatment. Hemoglobin today <10, therefore he will receive an injection. 4. Cancer related pain Diffuse bone pain secondary bone mets. [place] started Mar 2023 with relief. With treatment including Pluvicto the patient's pain has resolved. 5. Seizure disorder (suspected) The patient had an apparent seizure on 06/06/2023. According to his he developed expressive aphasia followed by shaking of both arms. He was seen at the [place] emergency room, and subsequently transferred to [facility]. Evaluation including a brain CT, brain MRI, and EEG were nondiagnostic. He was started on Keppra 500 mg twice daily plus low-dose aspirin and has had no further neurological events. He was recently seen by neurology as an outpatient, and continued management with serial brain CTs have been recommended. Brinda Delatorre APRN.VLAD I spent a total of 20 minutes on the date of the service which included preparing to see the patient, [id number] patient care, completing clinical documentation, obtaining and/or reviewing separately obtained history, performing a medically appropriate examination, counseling and educating the patient/family/caregiver, ordering medications, tests, or procedures, independently interpreting results (not separately reported), and communicating results to the patient/family/caregiver. documented in this encounter [facility] 08-30-2023 Note [facility] 08-30-2023 History of Presen t illness Narrative PATIENT NAME: Karin Mart DATE: 08/30/2023 PRIMARY CARE PHYSICIAN: Dr. Nina Smith OTHER PHYSICIANS: Dr. Muller, Dr. Karma Oconnor Portions of this encounter note have been copied from the note from 08/09/2023 and has been updated where appropriate, and reflect my current medical decision making from today. CC: This is an 82 year old male with metastatic prostate cancer, seen for scheduled follow-up. INTERIM HISTORY: The patient received his third cycle of Pluvicto on 07/27/2023 and tolerated it well. Since then he has had achy knees and lower legs, which he believes is arthritic pain worsened by increased activity. Bone pain related to cancer resolved after starting Pluvicto. Currently he takes Aleve as needed, but has not required narcotics. Otherwise he has had no significant medical changes. No recent seizure activity. He remains on Keppra. MEDICATIONS: Current Outpatient Medications Medication Sig levETIRAcetam (KEPPRA) 500 mg tablet Take 1 tablet by mouth every 12 hours. naproxen sodium (ALEVE ORAL) Take by mouth. (Patient not taking: Reported on 07/27/2023) tamsulosin (FLOMAX) 0.4 mg Take by mouth twice daily. CALCIUM-VITAMIN D3 ORAL Take 1 tablet by mouth once daily. No current facility-administered medications for this visit. ALLERGIES: ALLERGIES No Known Allergies PAST MEDICAL HISTORY: PAST MEDICAL HISTORY Diagnosis Date Prostate cancer (HCC) PAST SURGICAL HISTORY: PAST SURGICAL HISTORY Procedure Laterality Date COLONOSCOPY PROSTATE BIOPSY FAMILY HISTORY: FAMILY HISTORY Problem Relation Age of Onset Emphysema Father SOCIAL HISTORY: Social History Tobacco Use Smoking status: Former Packs/day: 1.00 Years: 5.00 Additional pack years: 0.00 Total pack years: 5.00 Types: Cigarettes Quit date: 1966 Years since quittin.3 Passive exposure: Past Smokeless tobacco: Never Vaping Use Vaping Use: Never used Substance Use Topics Alcohol use: Yes Comment: occ Drug use: Never REVIEW OF SYSTEMS: General: No weight loss, malaise or fevers. HEENT: Negative for frequent or significant headaches. No changes in hearing or vision, no nose bleeds or other nasal problems. Respiratory: Negative for cough, wheezing or shortness of breath. Cardiovascular: Negative for chest pain, leg swelling or palpitations. GI: Negative for abdominal discomfort, blood in stools or black stools or change in bowel habits. : No history of dysuria, frequency or incontinence. Musculoskeletal: Negative for joint pain or swelling, back pain and muscle pain. Skin: +healing incision on left forearm Hematology/Lymphology: Negative for prolonged bleeding, bruising easily or swollen nodes. Neuro: No history of headaches, syncope, paralysis, seizures or tremors. PHYSICAL EXAM: BP 125/50 Pulse 75 Temp 36.3 C (97.4 F) (Temporal) Resp 16 Ht 173 cm (5' 8.11 ) Wt 72.5 kg (159 lb 13.3 oz) SpO2 100% BMI 24.22 kg/m ECOG 1 General: Alert and oriented, no distress, pleasant and cooperative. Heart: Regular, normal S1 and S2, no murmurs, rubs, or gallops. Lungs: Clear to auscultation bilaterally. Abdomen: Benign. Extremities: Feet/ankles without edema, posterior tibial pulses full and symmetrical. PATHOLOGY: 12/02/2021 TRUS biopsy ([facility]) [place] score 4+5=9 in multiple cores LABS: Hemoglobin (g/dL) Date Value 08/30/2023 9.7 Hematocrit (%) Date Value 08/30/2023 30.3 WBC (k/uL) Date Value 08/30/2023 1.65 Platelet Count (k/uL) Date Value 08/30/2023 94 PSA 03/16/2021 10.3 11/24/2021 629.7 12/24/2021 792 02/04/2022 257 04/08/2022 320.0 07/05/2022 119.7 10/14/2022 313.7 11/03/2022 359.9 12/08/2022 323.6 01/18/2023 742.7 02/10/2023 843.8 02/15/2023 857.4 03/17/2023 1,313 04/21/2023 1,017 05/19/2023 685 06/28/2023 583.5 07/25/2023 552.0 RADIOLOGY/OTHER STUDIES: 11/03/2022 PSMA PET scan IMPRESSION: HEAD/NECK: * No PSMA-expressing metastases. CHEST: * No PSMA-expressing metastases. ABDOMENS/PELVIS: * Abnormal diffuse tracer uptake in the prostate bilateral peripheral zones extending in the bilateral seminal vesicles compatible with PSMA expressing prostate cancer. * Previous pelvic lymphadenopathy on CT 11/24/2021 has resolved. A focus of tracer activity along the right aspect of the rectum which may be a small tracer avid perirectal node. No tracer lymphadenopathy otherwise. * Prostatomegaly and chronic circumferential bladder wall thickening, likely component of urinary outflow obstruction. BONES/EXTREMITIES: * Worsened widespread tracer avid sclerotic osseous metastases with Superscan appearance. 12/09/2021 Nuclear bone scan ([facility]) Diffuse and extensive abnormal foci throughout the bones including the spine, ribs, pelvis, calvarium, scapula, humerus, sternum and femurs. Consistent with diffuse and extensive bone metastases. 11/24/2021 CT Abd/Pelvis ([facility]) Unremarkable bowel. No acute findings. Wall thickening of the urinary bladder likely due to muscular hypertrophy. Numerous skeletal lesions and enlarged prostate suggest prostate cancer. 11/24/2021 chest x-ray ([facility]) Hyperexpanded lungs. No acute cardiopulmonary process. ASSESSMENT/PLAN: 1. Prostate cancer (HCC) - ICD9: 185, ICD10: C61 (primary diagnosis) Metastatic prostate cancer initially diagnosed November 2021. The patient presented with a markedly elevated PSA. Prostate biopsy 12/02/2021 confirmed adenocarcinoma, [place] 4+5=9. Baseline bone scan 12/09/2021 revealed extensive bone metastases. CT abdomen/pelvis and chest x-ray revealed no evidence of visceral metastases. 12/14/2021 the patient received Lupron 45 mg IM and has continued every 6 months since (given by Dr. Muller). Casodex 50 mg daily started November 2021. The patient's PSA initially dropped, but increased by March 2022. March 2022 Casodex was discontinued and second line antiandrogen therapy with enzalutamide started. On second line hormonal therapy the patient's PSA initially dropped, but increased by September 2022. PSMA PET scan 11/03/2022 revealed significant progressive disease in bones ( SuperScan ). Subsequently it was elected to change treatment to third line hormonal therapy with abiraterone/prednisone starting 11/06/2022. The patient's PSA initially stabilized, but by 01/18/2023 increased significantly. He was seen by radiation oncology, and because of his anemia and extensive bone/bone marrow involvement it was felt the patient was not a candidate for Xofigo. Subsequently abiraterone/prednisone was discontinued and the patient's treatment was changed to Taxotere. Because of his age and performance status it was elected to treat with low-dose Taxotere 3 weeks on 1 week off. Cycle 1 started 01/21/2023. The patient remained clinically stable on chemotherapy, but ultimately PSA increased significantly. Taxotere was discontinued after cycle 2-day 8 on 03/24/2023. Subsequently he was referred to [facility] (Dr. Oconnor) and recommendations were to proceed with Pluvicto, with plans to give every 6 weeks x 6 cycles as tolerated. He received his first treatment on 04/27/2023. Most recent treatment with cycle 3 given 07/27/2023. Currently the patient has developing leukopenia and thrombocytopenia, otherwise is clinically stable. The patient will receive EPO for anemia today. Return in 10 days for follow-up. His next Pluvicto is scheduled for 09/14/2023. He will also continue with Lupron every [address] Muller, next injection due November 2023. 2. Bone metastases (HCC) - ICD9: 198.5, ICD10: C79.51 Extensive bone metastases on baseline bone scan 12/09/2021. Antiresorptive therapy with Xgeva started 01/07/2022 with plans to give every 3 months. Next injection due September 2023. 3. 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 Retacrit started 03/24/2023 for the treatment of chemotherapy-induced anemia, with plans to give weekly as needed for hemoglobin less than 10. Will also arrange for blood transfusion as needed to maintain hemoglobin greater than 10 prior to Pluvicto treatment. Hemoglobin today <10, therefore he will receive an injection. 4. Cancer related pain Diffuse bone pain secondary bone mets. [place] started Mar 2023 with relief. With treatment including Pluvicto the patient's pain has resolved. 5. Seizure disorder (suspected) The patient had an apparent seizure on 06/06/2023. According to his he developed expressive aphasia followed by shaking of both arms. He was seen at the [place] emergency room, and subsequently transferred to [facility]. Evaluation including a brain CT, brain MRI, and EEG were nondiagnostic. He was started on Keppra 500 mg twice daily plus low-dose aspirin and has had no further neurological events. He was recently seen by neurology as an outpatient, and continued management with serial brain CTs have been recommended. Juancho Aldridge MD documented in this encounter [facility] 08-09-2023 Note [facility] 08-09-2023 History of Presen t illness Narrative PATIENT NAME: Karin Mart DATE: 08/09/2023 PRIMARY CARE PHYSICIAN: Dr. Nina Smith OTHER PHYSICIANS: Dr. Muller, Dr. Oconnor Portions of this encounter note have been copied from the note from 07/19/2023 and has been updated where appropriate, and reflect my current medical decision making from today. CC: This is an 82 year old male with metastatic prostate cancer, seen for scheduled follow-up. INTERIM HISTORY: Karin Mart returns for scheduled follow-up. Since his last visit there has been no significant medical changes. He denies fevers, chills, night sweats and signs/symptoms of infection. He denies bleeding and abnormal bruising. He has had no blood in his urine. He remains on Flomax. He also remains on Keppra. After his last Pluvicto treatment he had trouble controlling his right hand the day after treatment. He took Aleve for couple of days after treatment due to pain in his legs. Overall, today he is doing well. MEDICATIONS: Current Outpatient Medications Medication Sig levETIRAcetam (KEPPRA) 500 mg tablet Take 1 tablet by mouth every 12 hours. tamsulosin (FLOMAX) 0.4 mg Take by mouth twice daily. CALCIUM-VITAMIN D3 ORAL Take 1 tablet by mouth once daily. aspirin, enteric coated (ASPIRIN, ENTERIC COATED) 81 mg EC tablet Take 1 tablet by mouth every afternoon. HYDROcodone-acetaminophen (NORCO) 5-325 mg per tablet Take 1 tablet by mouth every 4 hours as needed for pain. prochlorperazine (COMPAZINE) 10 mg tablet Take 1 tablet by mouth every 6 hours as needed. naproxen sodium (ALEVE ORAL) Take by mouth. (Patient not taking: Reported on 07/27/2023) No current facility-administered medications for this visit. ALLERGIES: ALLERGIES No Known Allergies PAST MEDICAL HISTORY: PAST MEDICAL HISTORY Diagnosis Date Prostate cancer (HCC) PAST SURGICAL HISTORY: PAST SURGICAL HISTORY Procedure Laterality Date COLONOSCOPY PROSTATE BIOPSY FAMILY HISTORY: FAMILY HISTORY Problem Relation Age of Onset Emphysema Father SOCIAL HISTORY: Social History Tobacco Use Smoking status: Former Packs/day: 1.00 Years: 5.00 Additional pack years: 0.00 Total pack years: 5.00 Types: Cigarettes Quit date: 1966 Years since quittin.2 Passive exposure: Past Smokeless tobacco: Never Vaping Use Vaping Use: Never used Substance Use Topics Alcohol use: Yes Comment: occ Drug use: Never REVIEW OF SYSTEMS: General: No weight loss, malaise or fevers. HEENT: Negative for frequent or significant headaches. No changes in hearing or vision, no nose bleeds or other nasal problems. Respiratory: Negative for cough, wheezing or shortness of breath. Cardiovascular: Negative for chest pain, leg swelling or palpitations. GI: Negative for abdominal discomfort, blood in stools or black stools or change in bowel habits. : No history of dysuria, frequency or incontinence. Musculoskeletal: Negative for joint pain or swelling, back pain and muscle pain. Skin: +healing incision on left forearm Hematology/Lymphology: Negative for prolonged bleeding, bruising easily or swollen nodes. Neuro: No history of headaches, syncope, paralysis, seizures or tremors. PHYSICAL EXAM: BP (!) 136/49 Pulse 71 Temp 36.3 C (97.3 F) (Temporal) Resp 18 Ht 173 cm (5' 8.11 ) Wt 70.4 kg (155 lb 3.3 oz) SpO2 97% BMI 23.52 kg/m ECOG 1 General: Alert and oriented, no distress, pleasant and cooperative. Heart: Regular, normal S1 and S2, no murmurs, rubs, or gallops. Lungs: Clear to auscultation bilaterally. Abdomen: Benign. Extremities: Feet/ankles without edema, posterior tibial pulses full and symmetrical. PATHOLOGY: 12/02/2021 TRUS biopsy ([facility]) [place] score 4+5=9 in multiple cores LABS: Hemoglobin (g/dL) Date Value 08/09/2023 10.9 Hematocrit (%) Date Value 08/09/2023 34.0 WBC (k/uL) Date Value 08/09/2023 2.25 Platelet Count (k/uL) Date Value 08/09/2023 158 PSA 03/16/2021 10.3 11/24/2021 629.7 12/24/2021 792 02/04/2022 257 04/08/2022 320.0 07/05/2022 119.7 10/14/2022 313.7 11/03/2022 359.9 12/08/2022 323.6 01/18/2023 742.7 02/10/2023 843.8 02/15/2023 857.4 03/17/2023 1,313 04/21/2023 1,017 05/19/2023 685 06/28/2023 583.5 RADIOLOGY/OTHER STUDIES: 11/03/2022 PSMA PET scan IMPRESSION: HEAD/NECK: * No PSMA-expressing metastases. CHEST: * No PSMA-expressing metastases. ABDOMENS/PELVIS: * Abnormal diffuse tracer uptake in the prostate bilateral peripheral zones extending in the bilateral seminal vesicles compatible with PSMA expressing prostate cancer. * Previous pelvic lymphadenopathy on CT 11/24/2021 has resolved. A focus of tracer activity along the right aspect of the rectum which may be a small tracer avid perirectal node. No tracer lymphadenopathy otherwise. * Prostatomegaly and chronic circumferential bladder wall thickening, likely component of urinary outflow obstruction. BONES/EXTREMITIES: * Worsened widespread tracer avid sclerotic osseous metastases with Superscan appearance. 12/09/2021 Nuclear bone scan ([facility]) Diffuse and extensive abnormal foci throughout the bones including the spine, ribs, pelvis, calvarium, scapula, humerus, sternum and femurs. Consistent with diffuse and extensive bone metastases. 11/24/2021 CT Abd/Pelvis ([facility]) Unremarkable bowel. No acute findings. Wall thickening of the urinary bladder likely due to muscular hypertrophy. Numerous skeletal lesions and enlarged prostate suggest prostate cancer. 11/24/2021 chest x-ray ([facility]) Hyperexpanded lungs. No acute cardiopulmonary process. ASSESSMENT/PLAN: 1. Prostate cancer (HCC) - ICD9: 185, ICD10: C61 (primary diagnosis) Metastatic prostate cancer initially diagnosed November 2021. The patient presented with a markedly elevated PSA. Prostate biopsy 12/02/2021 confirmed adenocarcinoma, [place] 4+5=9. Baseline bone scan 12/09/2021 revealed extensive bone metastases. CT abdomen/pelvis and chest x-ray revealed no evidence of visceral metastases. 12/14/2021 the patient received Lupron 45 mg IM and has continued every 6 months since (given by Dr. Muller). Casodex 50 mg daily started November 2021. The patient's PSA initially dropped, but increased by March 2022. March 2022 Casodex was discontinued and second line antiandrogen therapy with enzalutamide started. On second line hormonal therapy the patient's PSA initially dropped, but increased by September 2022. PSMA PET scan 11/03/2022 revealed significant progressive disease in bones ( SuperScan ). Subsequently it was elected to change treatment to third line hormonal therapy with abiraterone/prednisone starting 11/06/2022. The patient's PSA initially stabilized, but by 01/18/2023 increased significantly. He was seen by radiation oncology, and because of his anemia and extensive bone/bone marrow involvement it was felt the patient was not a candidate for Xofigo. Subsequently abiraterone/prednisone was discontinued and the patient's treatment was changed to Taxotere. Because of his age and performance status it was elected to treat with low-dose Taxotere 3 weeks on 1 week off. Cycle 1 started 01/21/2023. The patient remained clinically stable on chemotherapy, but ultimately PSA increased significantly. Taxotere was discontinued after cycle 2-day 8 on 03/24/2023. Subsequently he was referred to [facility] (Dr. Oconnor) and recommendations were to proceed with Pluvicto. He received his first treatment on 04/27/2023, with plans to give every 6 weeks as tolerated. Most recent treatment with cycle 2 given 06/15/2023. At this time the patient will continue as planned. Next Pluvicto scheduled for 09/14/2023. He will continue with Lupron every [address] Muller, next injection due November 2023. We will see the patient back in 3 weeks for follow-up. 2. Bone metastases (HCC) - ICD9: 198.5, ICD10: C79.51 Extensive bone metastases on baseline bone scan 12/09/2021. Antiresorptive therapy with Xgeva started 01/07/2022 with plans to give every 3 months. Next injection September. 3. 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 Retacrit started 03/24/2023 for the treatment of chemotherapy-induced anemia, with plans to give weekly as needed for hemoglobin less than 10. Will also arrange for blood transfusion as needed to maintain hemoglobin greater than 10 prior to Pluvicto treatment. Hemoglobin today >10, therefore he will not receive an injection. Follow up with repeat labs in 3 weeks. 4. Cancer related pain Diffuse bone pain secondary bone mets. [place] started Mar 2023 with relief. With treatment including Pluvicto the patient's pain has resolved. 5. Seizure disorder (suspected) The patient had an apparent seizure on 06/06/2023. According to his he developed expressive aphasia followed by shaking of both arms. He was seen at the [place] emergency room, and subsequently transferred to [facility]. Evaluation including a brain CT, brain MRI, and EEG were nondiagnostic. He was started on Keppra 500 mg twice daily plus low-dose aspirin and has had no further neurological events. He was recently seen by neurology as an outpatient, and continued management with serial brain CTs have been recommended. Brinda Delatorre APRN.PLASTER MACHINE TENDER CC: Dr. Muller, [facility] urology I spent a total of 20 minutes on the date of the service which included preparing to see the patient, [id number] patient care, completing clinical documentation, obtaining and/or reviewing separately obtained history, performing a medically appropriate examination, counseling and educating the patient/family/caregiver, ordering medications, tests, or procedures, independently interpreting results (not separately reported), and communicating results to the patient/family/caregiver. documented in this encounter [facility] 08-05-2023 Miscellaneous Notes Patient has an appt on 08/08. Would you like labs? documented in this encounter [facility] 07-27-2023 Note [facility] 07-27-2023 History of Presen t illness Narrative RADIOLOGY SERVICE PROGRESS NOTE SERVICE DATE: 07/27/2023 SERVICE TIME: 11:58 AM PATIENT IDENTITY VERIFICATION COMPLETED USING TWO (2) STANDARD IDENTIFIERS: Name and Date of confirmed by patient verbally FALL SCREENING: Has the patient had 2 falls in the last year or 1 fall with injury or currently using an Ambulatory Assistive Device (Walker, Cane, Wheelchair, Crutches, etc.)? No PATIENT GENDER DATA: .male ALLERGIES: Reviewed and unchanged MEDICATIONS REVIEWED: Not applicable PATIENT RELEVANT IMPLANT DATA REVIEWED: Not Applicable PATIENT PRESENTS WITH AN IMPLANTABLE OR ATTACHED DIRECTOR COUNSELING BUREAU: No CREATININE: Creatinine Date Value Ref Range Status 07/25/2023 0.96 0.73 - 1.22 mg/dL Final 07/19/2023 0.86 0.73 - 1.22 mg/dL Final 06/28/2023 0.91 0.73 - 1.22 mg/dL Final Estimated Glomerular Filtration Rate Date Value Ref Range Status 07/25/2023 78 >=60 mL/min/1.73m Final Comment: Estimated Glomerular Filtration Rate (eGFR) is calculated using the 2020 CKD-EPI creatinine equation. This equation utilizes serum creatinine, sex, and age as parameters. The creatinine assay has traceable calibration to isotope dilution-mass spectrometry. Refer to KDIGO guidelines for clinical interpretation. In patients with unstable renal function, e.g. those with acute kidney injury, the eGFR may not accurately reflect actual GFR. P.O.C.T. RESULTS: N/A July 27, [address] PERFORMED: No IV SITE: Ambulatory: A peripheral IV was started in the Left antecubital site with a Angio cath: 20 gauge. POST EXAM PIV STATUS: Discontinued PROCEDURE TYPE: NM Therapy: Dr. Adelfo Alcocer discussed the risks, benefits, alternatives, and precautions of Ct904-Dluwvptn therapy with the patient, who understood and agreed to proceed with the Ts972-Kunrwkbt therapy. The patient received a written set of instructions regarding the Tv772-Dpwldgvm therapy. 194.9 mCi of Vd840-Jgzfhxaq was administered IV for the radioactive Ou588-Zftslzrh therapy ADMINISTRATION TIME: 1215 PATIENT DISCHARGED TO: Ambulatory patient, left NM department area. A Diagnostic radioactive procedure has taken place, with no further precautions necessary other than routine body substance precautions. More information regarding radiation safety can be found using this link: [email or web address] SIGNATURE: RT [place](Huy) PATIENT NAME: Karin Mart DATE: July 27, 2023 TIME: 11:58 AM PAGER/CONTACT #: documented in this encounter [facility] 07-27-2023 Note [facility] 07-27-2023 Nurse Note Additional intake questions: Has the patient had fever, nausea, vomiting, diarrhea, constipation, fatigue for > 1 week? No Does the patient have a decreased appetite? No Does patient want to see a Chief Steward/Stewardess? No (yes to any of above refer patient to schedulers for dietitian appointment) ) Does patient have any new or increased numbness or tingling of extremities? No Is patient interested in fertility information? No Does patient need any prescription refills? No Does patient have an advanced directive in place? No, Patient referred to Resource Center documented in this encounter [facility] 07-27-2023 History of Presen t illness Narrative [facility] PROGRESS NOTE SERVICE DATE: July 27, 2023 CHIEF COMPLAINT: mCRPC ONCOLOGIC HISTORY: Oncology History Prostate cancer (HCC) 12/02/2021 Biopsy [place] 4+5 in setting of markedly elevated PSA 12/09/2021 Imaging Extensive bone metastases on bone scan 12/14/2021 - Hormone Therapy leuprolide 11/2021 - 03/2022 Oral Chemo Bicalutamide - stopped due to PSA progression 03/2022 - 10/2022 Oral Chemo Enzalutamide - stopped due to progression 11/06/2022 Progression PSMA PET - significant progressive disease Superscan 11/06/2022 - 01/18/2023 Oral Chemo Abiraterone acetate + prednisone - initial disease stability, then PSA started worsening 02/10/2023 - 03/24/2023 Chemotherapy Docetaxel 30 mg/m2 D1, D8, D15 q28 days 03/17/2023 Tumor Markers PSA 1313.00 ng/mL 03/30/2023 Genetic Testing Guardant 360- AR amplification TMB 16.44 04/27/2023 - Targeted Therapy Lutetium Scarlett 177 Vipivotide Tetraxetan C1 - 04/27/23 C2 - 06/15/23 HISTORY OF PRESENT ILLNESS: Karin Mart is a 82 year old male here for C3 of Lutetium Scarlett 177 Vipivotide Tetraxetan for mCRPC He is accompanied by his , Verito. 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 Started initially on CAB with ADT + bicalutamide, switched to enzalutamide in March 2022 due to disease progression. He then was on this until October 2022 when he again developed disease progression ( superscan ) on PSMA PET scan. Transitioned to abiraterone acetate + prednisone with short disease control until December 2022. 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 He is otherwise still able to do his ADLs INTERVAL HISTORY He has received 2 cycles of Lutetium Scarlett 177 Vipivotide Tetraxetan thus far with no major side effects. He was working in the yard for 45 minutes over the past weekend when the weather was nicer. He did have a seizure-like episode in May - neurologic workup was negative. Unclear whether or not this was actually an epileptic event. PHYSICAL EXAM: ECO- Restricted in physically strenuous activity. Carries out light duty. BP 127/58 Pulse 72 Temp 36.9 C (98.4 F) (Oral) Resp 17 Wt 70.6 kg (155 lb 10.3 oz) SpO2 100% BMI 23.59 kg/m BMI 23.59 kg/(m^2) Physical Exam Vitals reviewed. Neurological: General: No focal deficit present. Mental Status: He is alert. Mental status is at baseline. Psychiatric: Mood and Affect: Mood normal. Behavior: Behavior normal. Thought Content: Thought content normal. Judgment: Judgment normal. LABS: WBC (k/uL) Date Value 07/25/2023 2.46 (L) RBC (m/uL) Date Value 07/25/2023 3.26 (L) Hemoglobin (g/dL) Date Value 07/25/2023 10.0 (L) Hematocrit (%) Date Value 07/25/2023 31.9 (L) MCV (fL) Date Value 07/25/2023 97.9 MCH (pg) Date Value 07/25/2023 30.7 MCHC (g/dL) Date Value 07/25/2023 31.3 RDW-CV (%) Date Value 07/25/2023 15.5 (H) Platelet Count (k/uL) Date Value 07/25/2023 121 (L) MPV (fL) Date Value 07/25/2023 8.4 (L) Glucose (mg/dL) Date Value 07/25/2023 125 (H) BUN (mg/dL) Date Value 07/25/2023 16 Creatinine (mg/dL) Date Value 07/25/2023 0.96 Sodium (mmol/L) Date Value 07/25/2023 139 Potassium (mmol/L) Date Value 07/25/2023 4.6 Chloride (mmol/L) Date Value 07/25/2023 105 CO2 (mmol/L) Date Value 07/25/2023 24 Protein, Total (g/dL) Date Value 07/25/2023 6.6 Albumin (g/dL) Date Value 07/25/2023 4.2 Calcium, Total (mg/dL) Date Value 07/25/2023 8.9 Alkaline Phosphatase (U/L) Date Value 07/25/2023 584 (H) Bilirubin, Total (mg/dL) Date Value 07/25/2023 0.3 AST (U/L) Date Value 07/25/2023 38 ALT (U/L) Date Value 07/25/2023 25 IMAGING: no new imaging IMPRESSION AND PLAN: #mCRPC 82 y.o. M with mCRPC here for C3 for Lutetium Scarlett 177 Vipivotide Tetraxetan Has had a favorable PSA response thus far, so will continue with therapy. Incidentally, he did have an elevated TMB, so immunotherapy may be an option in the future, if needed. PLAN: 1) proceed C3 of Lutetium Scarlett 177 Vipivotide Tetraxetan Medical Decision Making: Data: Unique test result(s) reviewed: 3+ Risk: High: High risk from testing/treatment and Drug therapy requiring intensive monitoring Medical Decision Making Level: 4 - Moderate Karma Oconnor MD Associate Staff, Genitourinary Medical Oncology July 27, 2023 8:15 AM cc: Karma Duarte MD documented in this encounter [facility] 07-25-2023 Miscellaneous Notes Pt states that Dr Oconnor wants him to have additional lab work drawn prior to Tuesday's appointment. Pt could not provide specifics of what labs are needed. Per pt's spouse, they received a call from Ilana @ Dr Oconnor's office. Spoke w/ Ilana @ Dr Oconnor's office. Dr Oconnor has standing orders in place for a CMP. Pt will need this drawn prior to Tuesday. Pt notified and verbalizes understanding. Lab notified as well. Kelly Sevilla, RN documented in this encounter [facility] 07-19-2023 Nurse Note Patient has 2 new spots on right side of face that just appeared he would like looked at. Fernanda Jeronimo MA documented in this encounter [facility] 07-19-2023 Note [facility] 07-19-2023 History of Presen t illness Narrative PATIENT NAME: Karin Mart DATE: 07/19/2023 PRIMARY CARE PHYSICIAN: Dr. Nina Smith OTHER PHYSICIANS: Dr. Muller, Dr. Oconnor Portions of this encounter note have been copied from the note from 06/28/2023 and has been updated where appropriate, and reflect my current medical decision making from today. CC: This is an 82 year old male with metastatic prostate cancer, seen for scheduled follow-up. INTERIM HISTORY: Since the patient's last visit here he has had no significant medical changes. He remains on Keppra and has had no evidence of seizures or other neurological symptoms. On prostate cancer treatment his bone pain has resolved, and he has not required a pain pill for several weeks. No dysuria, hematuria, or other urinary symptoms. Overall the patient feels well today. MEDICATIONS: Current Outpatient Medications Medication Sig aspirin, enteric coated (ASPIRIN, ENTERIC COATED) 81 mg EC tablet Take 1 tablet by mouth every afternoon. levETIRAcetam (KEPPRA) 500 mg tablet Take 1 tablet by mouth every 12 hours. HYDROcodone-acetaminophen (NORCO) 5-325 mg per tablet Take 1 tablet by mouth every 4 hours as needed for pain. prochlorperazine (COMPAZINE) 10 mg tablet Take 1 tablet by mouth every 6 hours as needed. naproxen sodium (ALEVE ORAL) Take by mouth. tamsulosin (FLOMAX) 0.4 mg Take by mouth twice daily. CALCIUM-VITAMIN D3 ORAL Take 1 tablet by mouth once daily. No current facility-administered medications for this visit. ALLERGIES: ALLERGIES No Known Allergies PAST MEDICAL HISTORY: PAST MEDICAL HISTORY Diagnosis Date Prostate cancer (HCC) PAST SURGICAL HISTORY: PAST SURGICAL HISTORY Procedure Laterality Date COLONOSCOPY PROSTATE BIOPSY FAMILY HISTORY: FAMILY HISTORY Problem Relation Age of Onset Emphysema Father SOCIAL HISTORY: Social History Tobacco Use Smoking status: Former Packs/day: 1.00 Years: 5.00 Additional pack years: 0.00 Total pack years: 5.00 Types: Cigarettes Quit date: 1966 Years since quittin.1 Passive exposure: Past Smokeless tobacco: Never Vaping Use Vaping Use: Never used Substance Use Topics Alcohol use: Yes Comment: occ Drug use: Never REVIEW OF SYSTEMS: General: No weight loss, malaise or fevers. HEENT: Negative for frequent or significant headaches. No changes in hearing or vision, no nose bleeds or other nasal problems. Respiratory: Negative for cough, wheezing or shortness of breath. Cardiovascular: Negative for chest pain, leg swelling or palpitations. GI: Negative for abdominal discomfort, blood in stools or black stools or change in bowel habits. : No history of dysuria, frequency or incontinence. Musculoskeletal: Negative for joint pain or swelling, back pain and muscle pain. Skin: +healing incision on left forearm Hematology/Lymphology: Negative for prolonged bleeding, bruising easily or swollen nodes. Neuro: No history of headaches, syncope, paralysis, seizures or tremors. PHYSICAL EXAM: BP 131/51 Pulse 77 Temp 36.3 C (97.3 F) (Temporal) Resp 16 Ht 173 cm (5' 8.11 ) Wt 70.2 kg (154 lb 12.2 oz) SpO2 98% BMI 23.46 kg/m ECOG 1 General: Alert and oriented, no distress, pleasant and cooperative. Heart: Regular, normal S1 and S2, no murmurs, rubs, or gallops. Lungs: Clear to auscultation bilaterally. Abdomen: Benign. Extremities: Feet/ankles without edema, posterior tibial pulses full and symmetrical. PATHOLOGY: 12/02/2021 TRUS biopsy ([facility]) Gosia score 4+5=9 in multiple cores LABS: Hemoglobin (g/dL) Date Value 07/19/2023 10.7 Hematocrit (%) Date Value 07/19/2023 34.0 WBC (k/uL) Date Value 07/19/2023 2.69 Platelet Count (k/uL) Date Value 07/19/2023 147 PSA 03/16/2021 10.3 11/24/2021 629.7 12/24/2021 792 02/04/2022 257 04/08/2022 320.0 07/05/2022 119.7 10/14/2022 313.7 11/03/2022 359.9 12/08/2022 323.6 01/18/2023 742.7 02/10/2023 843.8 02/15/2023 857.4 03/17/2023 1,313 04/21/2023 1,017 05/19/2023 685 06/28/2023 583.5 RADIOLOGY/OTHER STUDIES: 11/03/2022 PSMA PET scan IMPRESSION: HEAD/NECK: * No PSMA-expressing metastases. CHEST: * No PSMA-expressing metastases. ABDOMENS/PELVIS: * Abnormal diffuse tracer uptake in the prostate bilateral peripheral zones extending in the bilateral seminal vesicles compatible with PSMA expressing prostate cancer. * Previous pelvic lymphadenopathy on CT 11/24/2021 has resolved. A focus of tracer activity along the right aspect of the rectum which may be a small tracer avid perirectal node. No tracer lymphadenopathy otherwise. * Prostatomegaly and chronic circumferential bladder wall thickening, likely component of urinary outflow obstruction. BONES/EXTREMITIES: * Worsened widespread tracer avid sclerotic osseous metastases with Superscan appearance. 12/09/2021 Nuclear bone scan ([facility]) Diffuse and extensive abnormal foci throughout the bones including the spine, ribs, pelvis, calvarium, scapula, humerus, sternum and femurs. Consistent with diffuse and extensive bone metastases. 11/24/2021 CT Abd/Pelvis ([facility]) Unremarkable bowel. No acute findings. Wall thickening of the urinary bladder likely due to muscular hypertrophy. Numerous skeletal lesions and enlarged prostate suggest prostate cancer. 11/24/2021 chest x-ray ([facility]) Hyperexpanded lungs. No acute cardiopulmonary process. ASSESSMENT/PLAN: 1. Prostate cancer (HCC) - ICD9: 185, ICD10: C61 (primary diagnosis) Metastatic prostate cancer initially diagnosed November 2021. The patient presented with a markedly elevated PSA. Prostate biopsy 12/02/2021 confirmed adenocarcinoma, Gosia 4+5=9. Baseline bone scan 12/09/2021 revealed extensive bone metastases. CT abdomen/pelvis and chest x-ray revealed no evidence of visceral metastases. 12/14/2021 the patient received Lupron 45 mg IM and has continued every 6 months since (given by Dr. Muller). Casodex 50 mg daily started November 2021. The patient's PSA initially dropped, but increased by March 2022. March 2022 Casodex was discontinued and second line antiandrogen therapy with enzalutamide started. On second line hormonal therapy the patient's PSA initially dropped, but increased by September 2022. PSMA PET scan 11/03/2022 revealed significant progressive disease in bones ( SuperScan ). Subsequently it was elected to change treatment to third line hormonal therapy with abiraterone/prednisone starting 11/06/2022. The patient's PSA initially stabilized, but by 01/18/2023 increased significantly. He was seen by radiation oncology, and because of his anemia and extensive bone/bone marrow involvement it was felt the patient was not a candidate for Xofigo. Subsequently abiraterone/prednisone was discontinued and the patient's treatment was changed to Taxotere. Because of his age and performance status it was elected to treat with low-dose Taxotere 3 weeks on 1 week off. Cycle 1 started 01/21/2023. The patient remained clinically stable on chemotherapy, but ultimately PSA increased significantly. Taxotere was discontinued after cycle 2-day 8 on 03/24/2023. Subsequently he was referred to [facility] (Dr. Oconnor) and recommendations were to proceed with Pluvicto. He received his first treatment on 04/27/2023, with plans to give every 6 weeks as tolerated. Most recent treatment with cycle 2 given 06/15/2023. At this time the patient will continue as planned. Next Pluvicto scheduled for 07/27/2023. He will continue with Lupron every [address] Muller, next injection due November 2023. I will see the patient back in 3 weeks for follow-up. 2. Bone metastases (HCC) - ICD9: 198.5, ICD10: C79.51 Extensive bone metastases on baseline bone scan 12/09/2021. Antiresorptive therapy with Xgeva started 01/07/2022 with plans to give every 3 months. Next injection due today. 3. 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 Retacrit started 03/24/2023 for the treatment of chemotherapy-induced anemia, with plans to give weekly as needed for hemoglobin less than 10. Will also arrange for blood transfusion as needed to maintain hemoglobin greater than 10 prior to Pluvicto treatment. Hemoglobin today >10, therefore he will receive not an injection. Repeat labs in 3 weeks. 4. Cancer related pain Diffuse bone pain secondary bone mets. [place] started Mar 2023 with relief. With treatment including Pluvicto the patient's pain has resolved. 5. Seizure disorder (suspected) The patient had an apparent seizure on 06/06/2023. According to his he developed expressive aphasia followed by shaking of both arms. He was seen at the [place] emergency room, and subsequently transferred to [facility]. Evaluation including a brain CT, brain MRI, and EEG were nondiagnostic. He was started on Keppra 500 mg twice daily plus low-dose aspirin and has had no further neurological events. He was recently seen by neurology as an outpatient, and continued management with serial brain CTs have been recommended. Juancho Aldridge MD CC: Dr. Muller, [facility] urology documented in this encounter [facility] 06-30-2023 Miscellaneous Notes [facility] received faxed regarding testing ordered and completed for review of further osseous metastatic spread. [facility] requested I call and let them know, he is aware. Zoë Shoemaker RN documented in this encounter [facility] 06-29-2023 History of Presen t illness Narrative Patient was in today for a three month follow up on hearing aids. Patient is experiencing no problem and is using an XS closed dome which he likes. Aids were cleaned and checked. Replaced retention lines, domes and filters. Patient was given a supply of domes and filters. Patient will continue as needed. He will call for additional supplies to be picked up in [place]. documented in this encounter [facility] 06-28-2023 Note [facility] 06-28-2023 History of Presen t illness Narrative PATIENT NAME: Karin Mart DATE: 06/28/2023 PRIMARY CARE PHYSICIAN: Dr. Nina Smith OTHER PHYSICIANS: Dr. Muller, Dr. Oconnor, Portions of this encounter note have been copied from the note from 05/26/2023 and has been updated where appropriate, and reflect my current medical decision making from today. CC: This is an 82 year old male with metastatic prostate cancer, seen for scheduled follow-up. INTERIM HISTORY: Since the patient's last visit here he had an apparent seizure on 06/06/2023. According to his he developed expressive aphasia followed by shaking of both arms. He was seen at the [place] emergency room, and subsequently transferred to [facility]. Evaluation including a brain CT, brain MRI, and EEG were nondiagnostic. He was started on Keppra 500 mg twice daily plus low-dose aspirin and has had no further neurological events. He was recently seen by neurology as an outpatient, and continued management with serial brain CTs have been recommended. The patient received his second cycle of Pluvicto at [facility] on 06/15/2023, and tolerated it well. On follow-up today he has no particular complaints. He has mild fatigue. Previous bone pain has improved significantly. MEDICATIONS: Current Outpatient Medications Medication Sig aspirin, enteric coated (ASPIRIN, ENTERIC COATED) 81 mg EC tablet Take 1 tablet by mouth every afternoon. levETIRAcetam (KEPPRA) 500 mg tablet Take 1 tablet by mouth every 12 hours. HYDROcodone-acetaminophen (NORCO) 5-325 mg per tablet Take 1 tablet by mouth every 4 hours as needed for pain. prochlorperazine (COMPAZINE) 10 mg tablet Take 1 tablet by mouth every 6 hours as needed. naproxen sodium (ALEVE ORAL) Take by mouth. tamsulosin (FLOMAX) 0.4 mg Take by mouth twice daily. CALCIUM-VITAMIN D3 ORAL Take 1 tablet by mouth once daily. No current facility-administered medications for this visit. ALLERGIES: ALLERGIES No Known Allergies PAST MEDICAL HISTORY: PAST MEDICAL HISTORY Diagnosis Date Prostate cancer (HCC) PAST SURGICAL HISTORY: PAST SURGICAL HISTORY Procedure Laterality Date COLONOSCOPY PROSTATE BIOPSY FAMILY HISTORY: FAMILY HISTORY Problem Relation Age of Onset Emphysema Father SOCIAL HISTORY: Social History Tobacco Use Smoking status: Former Packs/day: 1.00 Years: 5.00 Additional pack years: 0.00 Total pack years: 5.00 Types: Cigarettes Quit date: 1966 Years since quittin.1 Passive exposure: Past Smokeless tobacco: Never Vaping Use Vaping Use: Never used Substance Use Topics Alcohol use: Yes Comment: occ Drug use: Never REVIEW OF SYSTEMS: General: No weight loss, malaise or fevers. HEENT: Negative for frequent or significant headaches. No changes in hearing or vision, no nose bleeds or other nasal problems. Respiratory: Negative for cough, wheezing or shortness of breath. Cardiovascular: Negative for chest pain, leg swelling or palpitations. GI: Negative for abdominal discomfort, blood in stools or black stools or change in bowel habits. : No history of dysuria, frequency or incontinence. Musculoskeletal: Negative for joint pain or swelling, back pain and muscle pain. Skin: +healing incision on left forearm Hematology/Lymphology: Negative for prolonged bleeding, bruising easily or swollen nodes. Neuro: No history of headaches, syncope, paralysis, seizures or tremors. PHYSICAL EXAM: BP 127/51 Pulse 75 Temp 36.3 C (97.4 F) (Temporal) Resp 18 Ht 173 cm (5' 8.11 ) Wt 69.3 kg (152 lb 12.5 oz) SpO2 100% BMI 23.15 kg/m ECOG 1 General: Alert and oriented, no distress, pleasant and cooperative. Heart: Regular, normal S1 and S2, no murmurs, rubs, or gallops. Lungs: Clear to auscultation bilaterally. Abdomen: Benign. Extremities: Feet/ankles without edema, posterior tibial pulses full and symmetrical. PATHOLOGY: 12/02/2021 TRUS biopsy ([facility]) Gosia score 4+5=9 in multiple cores LABS: Hemoglobin (g/dL) Date Value 06/28/2023 9.8 Hematocrit (%) Date Value 06/28/2023 32.0 WBC (k/uL) Date Value 06/28/2023 2.51 Platelet Count (k/uL) Date Value 06/28/2023 190 PSA 03/16/2021 10.3 11/24/2021 629.7 12/24/2021 792 02/04/2022 257 04/08/2022 320.0 07/05/2022 119.7 10/14/2022 313.7 11/03/2022 359.9 12/08/2022 323.6 01/18/2023 742.7 02/10/2023 843.8 02/15/2023 857.4 03/17/2023 1,313 04/21/2023 1,017 05/19/2023 685 06/28/2023 RADIOLOGY/OTHER STUDIES: 11/03/2022 PSMA PET scan IMPRESSION: HEAD/NECK: * No PSMA-expressing metastases. CHEST: * No PSMA-expressing metastases. ABDOMENS/PELVIS: * Abnormal diffuse tracer uptake in the prostate bilateral peripheral zones extending in the bilateral seminal vesicles compatible with PSMA expressing prostate cancer. * Previous pelvic lymphadenopathy on CT 11/24/2021 has resolved. A focus of tracer activity along the right aspect of the rectum which may be a small tracer avid perirectal node. No tracer lymphadenopathy otherwise. * Prostatomegaly and chronic circumferential bladder wall thickening, likely component of urinary outflow obstruction. BONES/EXTREMITIES: * Worsened widespread tracer avid sclerotic osseous metastases with Superscan appearance. 12/09/2021 Nuclear bone scan ([facility]) Diffuse and extensive abnormal foci throughout the bones including the spine, ribs, pelvis, calvarium, scapula, humerus, sternum and femurs. Consistent with diffuse and extensive bone metastases. 11/24/2021 CT Abd/Pelvis ([facility]) Unremarkable bowel. No acute findings. Wall thickening of the urinary bladder likely due to muscular hypertrophy. Numerous skeletal lesions and enlarged prostate suggest prostate cancer. 11/24/2021 chest x-ray ([facility]) Hyperexpanded lungs. No acute cardiopulmonary process. ASSESSMENT/PLAN: 1. Prostate cancer (HCC) - ICD9: 185, ICD10: C61 (primary diagnosis) Metastatic prostate cancer initially diagnosed November 2021. The patient presented with a markedly elevated PSA. Prostate biopsy 12/02/2021 confirmed adenocarcinoma, Gosia 4+5=9. Baseline bone scan 12/09/2021 revealed extensive bone metastases. CT abdomen/pelvis and chest x-ray revealed no evidence of visceral metastases. 12/14/2021 the patient received Lupron 45 mg IM and has continued every 6 months since (given by Dr. Muller). Casodex 50 mg daily started November 2021. The patient's PSA initially dropped, but increased by March 2022. March 2022 Casodex was discontinued and second line antiandrogen therapy with enzalutamide started. On second line hormonal therapy the patient's PSA initially dropped, but increased by September 2022. PSMA PET scan 11/03/2022 revealed significant progressive disease in bones ( SuperScan ). Subsequently it was elected to change treatment to third line hormonal therapy with abiraterone/prednisone starting 11/06/2022. The patient's PSA initially stabilized, but by 01/18/2023 increased significantly. He was seen by radiation oncology, and because of his anemia and extensive bone/bone marrow involvement it was felt the patient was not a candidate for Xofigo. Subsequently abiraterone/prednisone was discontinued and the patient's treatment was changed to Taxotere. Because of his age and performance status it was elected to treat with low-dose Taxotere 3 weeks on 1 week off. Cycle 1 started 01/21/2023. The patient remained clinically stable on chemotherapy, but ultimately PSA increased significantly. Taxotere was discontinued after cycle 2-day 8 on 03/24/2023. Subsequently he was referred to [facility] (Dr. Oconnor) and recommendations were to proceed with Pluvicto. He received his first treatment on 04/27/2023, with plans to give every 6 weeks as tolerated. Most recent treatment with cycle 2 given 06/15/2023. At this time the patient will continue as planned. Next Pluvicto scheduled for 07/27/2023. He will continue with Lupron every [address] Muller, next injection due November 2023. I will see the patient back in 3 weeks for follow-up. 2. Bone metastases (HCC) - ICD9: 198.5, ICD10: C79.51 Extensive bone metastases on baseline bone scan 12/09/2021. Antiresorptive therapy with Xgeva started 01/07/2022 with plans to give every 3 months. Next injection due on return visit in 3 weeks. . 3. 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 The patient's anemia subsequently worsened after starting chemotherapy. Retacrit started 03/24/2023 for the treatment of chemotherapy-induced anemia, with plans to give weekly as needed for hemoglobin less than 10. Will also arrange for blood transfusion as needed to maintain hemoglobin greater than 10 prior to Pluvicto treatment. Hemoglobin today <10, therefore he will receive an injection. Repeat labs in 3 weeks. 4. Cancer related pain Diffuse bone pain secondary bone mets. [place] started Mar 2023 with relief. With treatment including Pluvicto the patient's pain has resolved. 5. Seizure disorder (suspected) The patient had an apparent seizure on 06/06/2023. According to his he developed expressive aphasia followed by shaking of both arms. He was seen at the [place] emergency room, and subsequently transferred to [facility]. Evaluation including a brain CT, brain MRI, and EEG were nondiagnostic. He was started on Keppra 500 mg twice daily plus low-dose aspirin and has had no further neurological events. He was recently seen by neurology as an outpatient, and continued management with serial brain CTs have been recommended. Juancho Aldridge MD CC: Dr. Muller, [facility] urology documented in this encounter [facility] 06-21-2023 Note [facility] 06-15-2023 Note [facility] 06-15-2023 Note [facility] 06-14-2023 Note [id number] [facility] 06-14-2023 Note [id number]#[id number] [facility] 06-07-2023 Consult note Note Date/Time June 07, 2023 12:11pm [facility] [address] [place] [address] Neurology Consult Note Signed Patient: Karin Mart MR#: [id number] : 1940 Acct:[id number] Age/Sex: 82 / M Adm Date: 4 Loc: Room: [address] [place] [address] Type: ADM INOo Attending Dr: Martin Holm MD Copies to: DO Martin Friend MD Samuel E Ross MD~ HPI Consult Date: 06/07/23 [employer] Survey Worker: Miguel Angel Mcbride DO [facility] Medical History (Updated 06/07/23 @ 15:08 by Miguel Angel Mcbride DO) Bone cancer Prostate cancer metastatic to bone Social History Smoking Status: Former smoker Meds Medications and Allergies Allergies No Known Allergies Allergy (Verified 06/06/23 21:51) Home Medications tamsulosin 0.4 mg capsule 0.4 mg PO BID 06/06/23 [History Confirmed 06/06/23] aspirin 81 mg tablet,delayed release 81 mg PO DAILY #30 tabs 06/07/23 [Rx] levetiracetam 500 mg tablet (Keppra) 500 mg PO BID #60 tabs 06/07/23 [Rx] Exam Physical Exam Vital Signs: Temp Pulse Resp BP Pulse Ox O2 Del Method 97.9 F 88 16 120/63 96 Room Air 06/07/23 07:53 06/07/23 10:57 06/07/23 10:57 06/07/23 10:57 06/07/23 10:57 06/07/23 10:57 Results Laboratory Findings 06/07/23 06:35 06/07/23 06:35 Assessment/Plan (1) TIA (transient ischemic attack): Plan CONSULT REASON: Seizure activity HPI: 82-year-old man with history of metastatic prostate cancer with diffuse metastases to bone and receiving what sounds like infused radioisotope therapy through Dr. Aldridge and [facility]. He was at home in a chair in his den reading a book and felt suddenly nervous and got shaky and said he found himself unable to produce any speech. He said he leaned forward or slumped forward in his chair. It does not sound like he lost consciousness. Per chart review, it sounds like his said he was making strange unintelligible noise is when trying to speak. And she makes it seem like he was kind of flailing his arms in the air. He says he has recollection of the event and remembers being shaky, drooling, and being unable to talk. The shakiness and drooling seem to resolve pretty rapidly maybe within 10 minutes, but he said his speech was still abnormal somewhat up until about 2 hours later. He had been taken to the [facility] emergency department and then transferred here. A CT head at [place] reportedly showed no acute intracranial abnormalities. EXAMINATION: In no distress. No deformities or trauma. Limbs seem well-perfused. No significant edema. Normal work of breathing. Visualized skin is generally intact and without lesions. Affect normal. Patient is alert and generally oriented. Attention normal. Speech is fluent and nondysarthric. Pupils are equal and reactive. Ocular motility is full. No nystagmus. Facial sensation is normal. Hearing is normal. Facial strength is normal. Tongue is midline. Muscle bulk, tone, and strength are normal. No tremors. Reflexes normal throughout. Light touch is normal. Vibratory sensation is normal. No limb dysmetria or ataxia. DATA REVIEW: -MRI brain with and without contrast from June 07, 2023 shows unremarkable brain parenchyma, diffuse smooth abnormal dural enhancement -Routine EEG June 07, 2023 is completely normal -Calcium 6.8, albumin not checked here ASSESSMENT: 82-year-old man with history of prostate cancer with diffuse metastases to bone and receiving infused radioisotope therapy. In very good shape from both a physical standpoint and a cognitive standpoint. Presents after an episode of sudden onset in which he maintained consciousness but had possible expressive aphasia, drooling which could suggest facial weakness, and tremulousness, with most symptoms resolving after about 10 minutes but with lingering speech issues for several hours. He has since been at his baseline. MR imaging of his brain shows very normal-appearing parenchyma but shows mild diffuse smooth dural enhancement. He does not have headache, and I do not suspect intracranial hypotension or cerebral venous thrombosis. Does not look especially consistent with dural metastatic disease (e.g. not lumpy bumpy or irregular), but given his cancer history this could be a consideration. Diagnostic considerations for his presenting symptoms include left hemispheric TIA and an atypical seizure. Consciousness was maintained and my overall suspicion for seizure is relatively low. A routine EEG looked completely unremarkable. Would not expect his meningeal changes to be epileptogenic; I see no adjacent reactive cortical irregularities anywhere. PLAN: 1. He is politely declining a lumbar puncture for CSF collection and cytology purposes. He had Lovenox DVT prophylaxis today so at the earliest this would be performed tomorrow and he does not want to stay for it, and does not want to have it done before first discussing with Dr. Aldridge. 2. As a precaution, starting Keppra 500 mg twice daily. I discussed seizure precautions with him and his , including no driving until released in the outpatient neurology setting. 3. Also as a precaution, starting aspirin 81 mg daily. 4. He is politely adamant about leaving. In the outpatient setting, vascular imaging can be considered. I am okay with going without it for now. 5. Outpatient follow-up with Dr. Aldridge and outpatient follow-up in neurology clinic in about 2 weeks ideally 6. Okay for discharge from my standpoint Documented By: Miguel Angel Mcbride DO 06/07/23 1205 Signed By: <Electronically signed by Miguel Angel Mcbride DO> 06/07/23 5106 [facility] Work Phone: [phone]) 663-315201-16-2024 Discharge summary Author Martin Holm [facility] June 07, 2023 3:01pm Note Date/Time June 07, 2023 1 1:42am [facility] [address] [place] [address] Discharge Summary Signed Patient: Karin Mart MR#: [id number] : 1940 Acct:[id number] Age/Sex: 82 / M Adm Date: 4 Loc: Room: [address] [place] [address]: Martin Holm MD Copies to: MD Martin Avalos MD Samuel E Ross MD~ Providers Date of Discharge: 06/07/23 Discharging Provider: Martin Holm Primary Care Provider: Chayito Duarte Consults: 06/06/23 19:58 Consult to Neurology Routine Discharge Diagnosis (1) Seizure-like activity: (2) Prostate cancer metastatic to bone: Final Diagnosis Final Discharge Diagnosis: As above Summary Hospital Course Hospital course: Patient is 82-year-old male with history of metastatic prostate cancer. Patientwas transferred from [facility] ER on 06/06 after he presented with an episode of drooling with possible seizure activity witnessed by his . Patient was in normal prior state of health throughout the day. He described this incident as feeling suddenly anxious. He states that he does not remember much, however does recall drooling and being unable to speak appropriately. He states that he might possibly have been shaking, however his knows better. He is unsure how long this lasted, his indicates it was around 10 to 15 minutes. He denies any urinary or stool incontinence, or tongue biting. On admission, speech was back to normal and patient had no focal deficits. He denied any fever, nausea, vomiting, chest pain, shortness of breath, headache, visual disturbances, tongue lacerations. At [facility] [facility] his labs showed WBC 3.3,hemoglobin 12.1, hematocrit 32.1, platelet 173, sodium 138, potassium 4.7, creatinine 0.85, AST 45 and ALT 36. Urinalysis negative for signs of infection. CT head did not show any acute intracranial abnormality. Patient has been diagnosed with metastatic prostate cancer with mets to bone currently on treatment started a month ago. Brain MRI was taken for possible evaluation of mets. Throughout stay, patient had no acute complaints, symptoms, or concerns. MRI brain came back showing diffuse relatively smooth abnormal dural enhancementwith no metastases seen. EEG was normal. Neurology recommending to initiate Keppra and also add aspirin on discharge. Recommend follow-up with Dr. Aldridge as an outpatient as well as neurology follow-up. Patient remained asymptomatic and insists to be discharged home today. Seizure precaution instructions given by neurology. Patient clinically does not exhibit signs of dural metastasis with no typical finding on MRI as well. Consider further workup including lumbar puncture for cytology which can be done as an outpatient by oncology service. Condition Condition at Discharge: Stable Status at Discharge Functional status at discharge: independent ambulation Overall status at discharge: patient is back to baseline Time Spent with Patient Time spent providing/coordinating discharge services (# min): 20 Diagnostic Studies Completed and Pending Studies Pending studies at discharge: 06/07/23 05:00 EEG awake & asleep IN AM 06/07/23 19:58 MR head/brain wo/w con Routine Labs on day of discharge: 06/07/23 06:35: PHA Creatinine Clear 65.31, Sodium 141, Potassium 4.6, Chloride 112 H, Carbon Dioxide 24.1, Anion Gap 9.5, BUN 14, Creatinine 0.80, Est GFR (CKD- EPI) > 60.0, Glucose 82, Calcium 6.8 L 06/07/23 06:35: Corrected WBC 2.1 L, Uncorrected WBC Count 2.1 L, RBC 2.92 L, Hgb 9.0 L, Hct 26.7 L, MCV 91.7, MCH 31.0, MCHC 33.8, RDW 19.3 H, Plt Count 179,MPV 6.2 L, Neut % (Auto) 76.5, Lymph % (Auto) 10.9, Logan % (Auto) 9.4, Eos % (Auto) 1.4, Baso % (Auto) 1.8, Nucleat RBC Rel Count 0.3, Neut # (Auto) 1.6 L, Lymph # (Auto) 0.2 L, Logan # (Auto) 0.2, Eos # (Auto) 0.0, Baso # (Auto) 0.0 Exam Physical Exam Vital Signs: Temp Pulse Resp BP Pulse Ox O2 Del Method 97.9 F 88 16 120/63 96 Room Air 06/07/23 07:53 06/07/23 10:57 06/07/23 10:57 06/07/23 10:57 06/07/23 10:57 06/07/23 10:57 Const General: cooperative Orientation: alert, awake and oriented x3 HEENT Head: normal to inspection, no palpable skull fracture, normocephalic and atraumatic Eyes Pupils: PERRL EOM: EOM intact bilaterally and No nystagmus Neck Neck: normal visual inspection and full ROM Resp Effort & Inspection: normal respiratory effort and able to speak in complete sentences Auscultation: no rales, no rhonchi and no wheezes Cardio Rate: regular rate Rhythm: regular rhythm Heart Sounds: S1 normal and S2 normal GI Palpation: soft, not firm, no guarding and nontender Neuro General: patient alert, patient awake, patient oriented x3, moves all extremities and no focal motor deficits Cognition: normal cognition Speech: speech normal Motor: muscle tone normal throughout and strength 5/5 throughout Sensory Exam: no sensory deficits noted Extrem General: no clubbing, cyanosis or edema Psych Appearance: grossly normal Discharge Plan Discharge Plan Patient Disposition: Home Comment: seizure precautions Diet: Regular Prescriptions: New aspirin 81 mg tablet,delayed release (DR/EC) 81 mg PO DAILY Qty: 30 0RF levetiracetam [Keppra] 500 mg tablet 500 mg PO BID Qty: 60 0RF Continued tamsulosin 0.4 mg capsule 0.4 mg PO BID Documented By: Martin Homl MD 06/07/23 0855 Signed By: <Electronically signed by Martin Holm MD> 06/07/23 4262 [facility] Work Phone: [phone]) 972-544201-15-2024 History and physical note Author Martin Holm [facility] June 06, 2023 7:58pm Note Date/Time June 06, 2023 7 :44pm [facility] [address] [place] [address] Hospitalist H&P Signed Patient: Karin Mart MR#: [id number] : 1940 Acct:[id number] Age/Sex: 82 / M Adm Date: 4 Loc: Room: [address] [place] [address] Type: ADM INOo Attending Dr: Kourtney Hernandez DO Copies to: DO Martin Hernandez MD Samuel E Ross MD~ HPI DATE OF EXAMINATION: 06/06/23 CHIEF COMPLAINT: Seizure-like activity. HISTORY OF PRESENT ILLNESS: Patient is a pleasant 82-year-old male with history of metastatic prostate cancer for which he follows with Dr. Aldridge and diagnosed around 1 and half years ago currently on treatment at [facility]. He received his first treatment in April scheduled for next treatment on . Patient has been transferred from [facility] ER when he presented with an episode of drooling with seizure activity witnessed by his . He has been in his normalstate of health earlier today while at home. He came up from the basement whilesitting all of a sudden he describes feeling nervous. His on the other room heard weird noises patient was trying to speak but not able to speak. He noticed him to have shaking of his whole body with drooling. Patient remembers sitting on a chair and not able to speak and does not remember for a brief period what happened. Denies prior history of seizure or CVA. There was no urinary or stool incontinence. No tongue bite. As per the the whole episode lasted for around 10 to 15-minute but he was having difficulty speaking until he arrived at [facility]. Currently speech is back to normal with no focal deficit. Patient denies having headache, visual disturbance or any other complaint. Patient did have upper sinus infection around 2 weeks ago which has improved. At [facility] his labs showed WBC 3.3, hemoglobin 12.1, hematocrit 32.1, platelet 173, sodium 138, potassium 4.7, creatinine 0.85, AST 45 and ALT 36. Urinalysis negative for signs of infection. CT head did not show any acuteintracranial abnormality. Patient has been diagnosed with metastatic prostate cancer with mets to bone currently on treatment started a month ago. No known history of brain metastasis. Review of Systems Review of Systems All other systems reviewed & are negative unless noted below or in HPI [facility] Medical History (Updated 06/06/23 @ 19:55 by Martin Holm MD) Bone cancer Prostate cancer metastatic to bone Meds Medications and Allergies Home Medications tamsulosin 0.4 mg capsule 0.4 mg PO BID 06/06/23 [History Confirmed 06/06/23] Exam Const General: cooperative Orientation: alert, awake and oriented x3 HEENT Head: normal to inspection, no palpable skull fracture, normocephalic and atraumatic Eyes Pupils: PERRL EOM: EOM intact bilaterally and No nystagmus Neck Neck: normal visual inspection and full ROM Resp Effort & Inspection: normal respiratory effort and able to speak in complete sentences Auscultation: no rales, no rhonchi and no wheezes Cardio Rate: regular rate Rhythm: regular rhythm Heart Sounds: S1 normal and S2 normal GI Palpation: soft, not firm, no guarding and nontender Neuro General: patient alert, patient awake, patient oriented x3, moves all extremities, no focal motor deficits and CN's II-XI intact bilaterally Cognition: normal cognition Speech: speech normal Motor: muscle tone normal throughout and strength 5/5 throughout Sensory Exam: no sensory deficits noted Extrem General: no clubbing, cyanosis or edema and no calf tenderness Psych Appearance: grossly normal Assessment & Plan Assessment/Plan (1) Prostate cancer metastatic to bone: (2) Seizure-like activity: Plan Patient with history of metastatic prostate cancer brought to the emergency roomafter an episode of drooling with whole body shaking. Symptoms concerning for seizure. Patient has been transferred from [facility] for further management. Will consult neurology and obtain MRI brain with and without contrast. Seizure precaution. On examination no focal motor deficit noted. Lovenox for DVT prophylaxis. Also order EEG and defer antiseizure medication to neurology. IV Ativan as needed for seizure activity. IP vs OBS Justification Based on differential dx, clinical care plan, and risk of adverse events, if untreated, in my clinical judgement this patient requires an acute care setting as: OBSERVATION because of an expectation of an under 2 midnight stay. Estimated length of stay (# of days): 1 Time spent planning advance care (# min): 15 Advance directives explained/discussed with: Patient, Spouse and Adult Child(ruiz) Discussed CODE STATUS with patient, his and daughter and he wishes to be full code. Documented By: Martin Holm MD 06/06/231940 Signed By: <Electronically signed by Martin Holm MD> 06/06/231957 [facility] Work Phone: 1(802) 118-830801-05-2024 Hospital Discharge instructions Patient Education 05/27/2023 11:55:47 Prostate Cancer Prostate Cancer The prostate is a small gland that produces fluid that makes up semen (seminal fluid). It is located below the bladder in men, in front of the rectum. Prostate cancer is the abnormal growth of cells in the prostate gland. What are the causes? The exact cause of this condition is not known. What increases the risk? You are more likely to develop this condition if: You are 65 years of age or older. You have a family history of prostate cancer. You have a family history of breast and ovarian cancer. You have genes that are passed from parent to child (inherited), such as BRCA1 and BRCA2. You have Nelson syndrome. men and men of descent are diagnosed with prostate cancer at higher rates than other men. The reasons for this are not well understood and are likely due to a combination of genetic and environmental factors. What are the signs or symptoms? Symptoms of this condition include: Problems with urination. This may include: ?A weak or interrupted flow of urine. ?Trouble starting or stopping urination. ?Trouble emptying the bladder all the way. ?The need to urinate more often, especially at night. Blood in urine or semen. Persistent pain or discomfort in the lower back, lower abdomen, or hips. Trouble getting an erection. Weakness or numbness in the legs or feet. How is this diagnosed? This condition can be diagnosed with: A digital rectal exam. For this exam, a health care provider inserts a gloved finger into the rectum to feel the prostate gland. A blood test called a prostate-specific antigen (PSA) test. A procedure in which a sample of tissue is taken from the prostate and checked under a microscope (prostate biopsy). An imaging test called transrectal ultrasonography. Once the condition is diagnosed, tests will be done to determine how far the cancer has spread. This is called staging the cancer. Staging may involve imaging tests, such as a bone scan, CT scan, PETscan, or MRI. Stages of prostate cancer The stages of prostate cancer are as follows: Stage 1 (I). At this stage, the cancer is found in the prostate only. The cancer is not visible on imaging tests, and it is usually found by accident, such as during prostate surgery. Stage 2 (II). At this stage, the cancer is more advanced than it is in stage 1, but the cancer has not spread outside the prostate. Stage 3 (III). At this stage, the cancer has spread beyond the outer layer of the prostate to nearby tissues. The cancer may be found in the seminal vesicles, which are near the bladder and the prostate. Stage 4 (IV). At this stage, the cancer has spread to other parts of the body, such as the lymph nodes, bones, bladder, rectum, liver, or lungs. Prostate cancer grading Prostate cancer is also graded according to how the cancer cells look under a microscope. This is called the [place] score and the total score can range from 6 10, indicating how likely it is that the cancer will spread (metastasize) to other parts of the body. The higher the score, the greater thelikelihood that the cancer will spread. [place] 6 or lower: This indicates that the cancer cells look similar to normal prostate cells (well differentiated). [place] 7: This indicates that the cancer cells look somewhat similar to normal prostate cells (moderately differentiated). [place] 8, 9, or 10: This indicates that the cancer cells look very different than normal prostate cells (poorly differentiated). How is this treated? Treatment for this condition depends on several factors, including the stage of the cancer, your age, personal preferences, and your overall health. Talk with your health care provider about treatment options that are recommended for you. Common treatments include: Observation for early stage prostate cancer (active surveillance). This involves having exams, blood tests, and in some cases, more biopsies. For some men, this is the only treatment needed. Surgery. Types of surgeries include: ?Open surgery (radical prostatectomy). In this surgery, a larger incision is made to remove the prostate. ?A laparoscopic radical prostatectomy. This is a surgery to remove the prostate and lymph nodes through several small incisions. It is often referred to as a minimally invasive surgery. ?A robotic radical prostatectomy. This is laparoscopic surgery to remove the prostate and lymph nodes with the help of robotic arms that are controlled by the surgeon. ?Cryoablation. This is surgery to freeze and destroy cancer cells. Radiation treatment. Types of radiation treatment include: ?External beam radiation. This type aims beams of radiation from outside the body at the prostate to destroy cancerous cells. ?Brachytherapy. This type uses radioactive needles, seeds, wires, or tubes that are implanted into the prostate gland. Like external beam radiation, brachytherapy destroys cancerous cells. An advantage is that this type of radiation limits the damage to surrounding tissue and has fewer side effects. Chemotherapy. This treatment kills cancer cells or stops them from multiplying. It kills both cancer cells and normal cells. Targeted therapy. This treatment uses medicines to kill cancer cells without damaging normal cells. Hormone treatment. This treatment involves taking medicines that act on testosterone, one of the male hormones, by: ?Stopping your body from producing testosterone. ?Blocking testosterone from reaching cancer cells. Follow these instructions at home: Lifestyle Do not use any products that contain nicotine or tobacco. These products include cigarettes, chewing tobacco, and vaping devices, such as e-cigarettes. If you need help quitting, ask your health careprovider. Eat a healthy diet. To do this: ?Eat foods that are high in fiber. These include beans, whole grains, and fresh fruits and vegetables. ?Limit foods that are high in fat and sugar. These include fried or sweet foods. Treatment for prostate cancer may affect sexual function. If you have a partner, continue to have intimate moments. This may include touching, holding, hugging, and caressing your partner. Get plenty of sleep. Consider joining a support group for men who have prostate cancer. Meeting with a support group mayhelp you learn to manage the stress of having cancer. General instructions Take [id number] and prescription medicines only as told by your health care provider. If you have to go to the hospital, notify your cancer specialist (oncologist). Keep all follow-up visits. This is important. Where to find more information [place] [employer]: www.cancer.org [place] [employer]: www.cancer.net National Cancer [place]: www.cancer.gov Contact a health care provider if: You have new or increasing trouble urinating. You have new or increasing blood in your urine. You have new or increasing pain in your hips, back, or chest. Get help right away if: You have weakness or numbness in your legs. You cannot control urination or your bowel movements (incontinence). You have chills or a fever. Summary The prostate is a small gland that is involved in the production of semen. It is located below a man's bladder, in front of the rectum. Prostate cancer is the abnormal growth of cells in the prostate gland. Treatment for this condition depends on the stage of the cancer, your age, personal preferences, and your overall health. Talk with your health care provider about treatment options that are recommended for you. Consider joining a support group for men who have prostate cancer. Meeting with a support group mayhelp you learn to manage the stress of having cancer. This information is not intended to replace advice given to you by your health care provider. Make sure you discuss any questions you have with your health care provider. Document Revised: 08/05/2021 Document Reviewed: 08/05/2021 [employer]OS Online Backup Patient Education 2022 [employer]. Follow Up Care 11/29/2022 14:06:34 With:RENZO MCGARRY, Isa Son, URL Address: [address] [place] [address]- When: Unknown [facility] 01-04-2024 [facility]12-28-2023 NoteHNO ID: [id number] Author: Deanne Guzmán RN Service: ? Author Type: Registered Nurse Type: Progress Notes Filed: 05/19/2023 2:41 PM Note Text: No injection today d/t hgb 10.3 [facility]2023 NoteHNO ID: [id number] Author: Elle Bajwa RN Service: ? Author Type: Registered Nurse Type: Progress Notes Filed: 05/12/2023 3:10 PM Note Text: Retatacrit not given due to HBG 10.3. Results reviewed with patient. Elle Bajwa RNOur [facility]12-14-20[facility]-2023 NoteHNO ID: [id number] Author: Patricia Jameson RN Service: ? Author Type: Registered Nurse Type: Progress Notes Filed: 05/05/2023 2:22 PM Note Text: Hgb 10.3 no retacrit neededOur [facility]12-14-2023 [facility]Our [facility]-2023 History of Present illness Narrative* Patricia Jameson RN - 05/05/2023 2:21 PM EST Hgb 10.3 no retacrit needed [facility] Miscellaneous Notes* Telephone Encounter - Kelly Sevilla RN - 05/03/2023 1:[address] Aldridge, the pt is ok to have his teeth cleaned. Mariella @ Dr Pena's office notified and verbalizes understanding. States that the pt left and they are going to reschedule his appointment. Kelly Sevilla RN * Telephone Encounter - Kelly Sevilla RN - 05/03/2023 1:32 PM EST Pt currently at the dentist for a routine cleaning. Is he ok to proceed? Kelly Sevilla RN documented in this encounterL[facility]12-08-2023 Miscellaneous Notes* Telephone Encounter - Roma Washington RN - 04/29/2023 9:16 AM EST Patient phones requesting refills as follows: Requested Prescriptions Pending Prescriptions Disp Refills HYDROcodone-acetaminophen (NORCO) 5-325 mg per tablet 50 tablet 0 Sig: Take 1 tablet by mouth every 4 hours as needed for pain. Please review and advise. Roma Washington RN documented in this encounterL[facility]12-06-2023 NoteOur [facility]12-06-2023 History of Present illness Narrative* Ofelia RamosRT(R) - 04/27/2023 1:00 PM EST RADIOLOGY SERVICE PROGRESS NOTE SERVICE DATE: 04/27/2023 SERVICE TIME: 1:01 PM PATIENT IDENTITY VERIFICATION COMPLETED USING TWO (2) STANDARD IDENTIFIERS: Name and Date of confirmed by patient verbally and Name and Date of confirmed by identification band FALL SCREENING: Has the patient had 2 falls in the last year or 1 fall with injury or currently using an Ambulatory Assistive Device (Walker, Cane, Wheelchair, Crutches, etc.)? No PATIENT GENDER DATA: .male ALLERGIES: Reviewed and unchanged MEDICATIONS REVIEWED: No PATIENT RELEVANT IMPLANT DATA REVIEWED: Not Applicable CREATININE: Creatinine Date Value Ref Range Status 04/21/2023 0.97 0.73 - 1.22 mg/dL Final 04/07/2023 0.97 0.73 - 1.22 mg/dL Final 03/30/2023 0.94 0.73 - 1.22 mg/dL Final Estimated Glomerular Filtration Rate Date Value Ref Range Status 04/21/2023 77 >=60 mL/min/1.73m Final Comment: Estimated Glomerular Filtration Rate (eGFR) is calculated using the 2020 CKD-EPI creatinine equation. This equation utilizes serum creatinine, sex, and age as parameters. The creatinine assay has traceable calibration to isotope dilution- mass spectrometry. Refer to KDIGO guidelines for clinical interpretation. In patients with unstable renal function, e.g. those with acute kidney injury, the eGFRmay not accurately reflect actual GFR. P.O.C.T. RESULTS: N/A April 27, [address] PERFORMED: No IV SITE: Ambulatory: A peripheral IV was started in the Left antecubital site with a Angio cath: 20gauge. POST EXAM PIV STATUS: Discontinued PROCEDURE TYPE: NM Therapy: Dr. Lovell discussed the risks, benefits, alternatives, and precautions of [id number] therapy with the patient, who understood and agreed to proceed with the Ow853-Guyaxkoy therapy. The patient received a written set of instructions regarding the Dr993-Mkbtkzze therapy. 194.7 mCi of [id number] was administered IV for the radioactive I-131 therapy. Cycle #1 ADMINISTRATION TIME: 1332 PATIENT DISCHARGED TO: Ambulatory patient, left [place] department area. A Diagnostic radioactive procedure has taken place, with no further precautions necessary other than routine body substance precautions. More information regarding radiation safety can be found usingSocial Realitys link: [email or web address] SIGNATURE: RT Sri(R) PATIENT NAME: Karin Mart DATE: April 27, 2023 TIME: 1:01 PM PAGER/CONTACT #: documented in this encounterLake[facility]12-[facility]-2023 NoteOur [facility]12-[facility] History of Present illness Narrative* Rafaela Morocho PA-C - 04/26/2023 6:44 PM EST [facility] V[facility] Phone visit Introduced myself and active licensure Pt consented to encounter ATTENDING PHYSICIAN: Karma Oconnor MD DATE OF SERVICE: 04/26/23 DIAGNOSIS: mCRPC CURRENT THERAPY: INTERVAL HISTORY: Pt returns today in prep of starting Pluvicto tomorrow. He is still having pain in left buttock. Taking norco every 4 hours. No numbness/tingling. Received blood transfusion yesterday and is getting weekly CBCs with local onc team. No other complaints today. MEDICATIONS: Current Outpatient Medications Medication Sig HYDROcodone-acetaminophen (NORCO) 5-325 mg per tablet Take 1 tablet by mouth every 4 hours as needed for pain. ondansetron (ZOFRAN) 8 mg tablet Take 1 tablet by mouth every 8 hours as needed for nausea/vomiting. prochlorperazine (COMPAZINE) 10 mg tablet Take 1 tablet by mouth every 6 hours as needed. naproxen sodium (ALEVE ORAL) Take by mouth. tamsulosin (FLOMAX) 0.4 mg Take by mouth twice daily. CALCIUM-VITAMIN D3 ORAL Take 1 tablet by mouth once daily. No current facility-administered medications for this visit. PHYSICAL EXAM: Sounds well by phone LABS: Component Latest Ref Rng & Units 04/26/2023 WBC 3.70 - 11.00 k/uL 3.89 RBC 4.20 - 6.00 m/uL 3.41 (L) Hemoglobin 13.0 - 17.0 g/dL 10.0 (L) Hematocrit 39.0 - 51.0 % 30.6 (L) MCV 80.0 - 100.0 fL 89.7 MCH 26.0 - 34.0 pg 29.3 MCHC 30.5 - 36.0 g/dL 32.7 RDW-CV 11.5 - 15.0 % 19.9 (H) Platelet Count 150 - 400 k/uL 194 MPV 9.0 - 12.7 fL 8.5 (L) Neut% % 75.8 Abs Neut (ANC) 1.45 - 7.50 k/uL 2.95 Lymph% % 9.3 Abs Lymph 1.00 - 4.00 k/uL 0.36 (L) Logan% % 11.6 Abs Logan <0.87 k/uL 0.45 Eosin% % 1.0 Abs Eosin <0.46 k/uL 0.04 Baso% % 1.0 Abs Baso <0.11 k/uL 0.04 Immature Gran % % 1.3 IMMATURE GRANS (ABS) <0.10 k/uL 0.05 NRBC /100 WBC 1.3 Absolute nRBC <0.01 k/uL 0.05 (H) DTYPE Auto PSA reviewed IMAGING reviewed ASSESSMENT/PLAN: 1. ONCOLOGY: Mr. Mart is an 82 year old male with mCRPC currently on Lupron and due to start Pluvicto C1 tomorrow. Previously treated with isac, brad, taxotere. Has significant bony disease, which along with recent taxane therapy, is impacting his bone marrow. Reviewed role/goal, risk/benefit, SE, radioactive precautions with pt and . They will decide if they want our team to oversee their care prior to pluvicto therapy or if they would like to continue care with local team and just receive the infusions here. 2. Bone metastases (HCC) Imaging reviewed. XRs ordered to assess for path fx r/t disease given pain. 3. Anemia due to antineoplastic chemotherapy: Pt had PRBC yesterday. Ok for C1 pluvicto but will continue to have weekly CBC with local team and prn transfusions and retacrit. 4. Cancer related pain Diffuse bone pain secondary bone mets. [place] started Mar 2023 with relief. Referral to pall med XR left hip/sacrum Encouraged them to call with any other questions or concerns. Part of this note copied from previous visit 04/21/23 This patient has metastatic cancer and is on active therapy that requires monitoring and oversight. Time: 20 min ZACHARY Ivan PA-C documented in this encounterLakehealth [facility]wood [facility]12-05-2023 NoteOur [facility]12-05-2023 History of Present illness Narrative* Jaja Roque RN - 04/26/2023 3:52 PM EST Pt Hgb 10.[address] Aldridge. He would like pt to receive Retacrit today, however pharmacy informed me that insurance will not cover unless Hgb is less than 10. Pt informed and verbalizes understanding. Pt does report he woke up today with some swelling just below the head of his penis. Denies pain. Spoke with VLAD Sanchez who instructs patient should call his PCP. Pt informed and said he is goingto stop by their office on his way home today. Jaja Roque RN documented in this encounterLakehealth Beachwood [facility] Center11-30-2023 Miscellaneous Notes* Telephone Encounter - Christine Guerrero - 04/21/2023 10:19 AM EST Patient has been scheduled for transfusion @ [place] on Tuesday, 04/25 @ 8:00 am. He will get TSC onSatday. Christine Guerrero documented in this encounterLakehealth Beachwood Medical Center11-30-2023 [facility]11-30-2023 History of Present illness Narrative* Juancho Aldridge MD - 04/21/2023 7:01 AM EST PATIENT NAME: Karin Mart DATE: 04/21/2023 PRIMARY CARE PHYSICIAN: Dr. Nina Smith OTHER PHYSICIANS: Dr. Muller, Dr. Oconnor Portions of this encounter note have been copied from my note from 04/07/2023 and has been updated where appropriate, and reflect my current medical decision making from today. CC: This is an 82 year old male with metastatic prostate cancer, seen for scheduled follow-up and continued treatment. INTERIM HISTORY: Since the patient's last visit here he has noticed increasing bone pain. Particularly he has pain behind his right buttock near his right proximal femur. He had been on Advil whichno longer is effective. He was recently prescribed [place] which helps. Otherwise he has had no significant medical changes. No signs of bruising or bleeding. Since discontinuing chemotherapy overall feels somewhat better. MEDICATIONS: Current Outpatient Medications Medication Sig HYDROcodone-acetaminophen (NORCO) 5-325 mg per tablet Take 1 tablet by mouth every 4 hours as needed for pain. ondansetron (ZOFRAN) 8 mg tablet Take 1 tablet by mouth every 8 hours as needed for nausea/vomiting. prochlorperazine (COMPAZINE) 10 mg tablet Take 1 tablet by mouth every 6 hours as needed. naproxen sodium (ALEVE ORAL) Take by mouth. tamsulosin (FLOMAX) 0.4 mg Take by mouth twice daily. CALCIUM-VITAMIN D3 ORAL Take 1 tablet by mouth once daily. No current facility-administered medications for this visit. ALLERGIES: ALLERGIES No Known Allergies PAST MEDICAL HISTORY: PAST MEDICAL HISTORY Diagnosis Date Prostate cancer (HCC) PAST SURGICAL HISTORY: PAST SURGICAL HISTORY Procedure Laterality Date COLONOSCOPY PROSTATE BIOPSY FAMILY HISTORY: FAMILY HISTORY Problem Relation Age of Onset Emphysema Father SOCIAL HISTORY: Social History Tobacco Use Smoking status: Former Packs/day: 1.00 Years: 5.00 Additional pack years: 0.00 Total pack years: 5.00 Types: Cigarettes Quit date: 1966 Years since quittin.9 Passive exposure: Past Smokeless tobacco: Never Vaping Use Vaping Use: Never used Substance Use Topics Alcohol use: Yes Comment: occ Drug use: Never REVIEW OF SYSTEMS: General: No weight loss, malaise or fevers. HEENT: Negative for frequent or significant headaches. No changes in hearing or vision, no nose bleeds or other nasal problems. Respiratory: Negative for cough, wheezing or shortness of breath. Cardiovascular: Negative for chest pain, leg swelling or palpitations. GI: Negative for abdominal discomfort, blood in stools or black stools or change in bowel habits. : No history of dysuria, frequency or incontinence. Musculoskeletal: Negative for joint pain or swelling, back pain and muscle pain. Skin: +healing incision on left forearm Hematology/Lymphology: Negative for prolonged bleeding, bruising easily or swollen nodes. Neuro: No history of headaches, syncope, paralysis, seizures or tremors. PHYSICAL EXAM: BP (!) 115/46 Pulse 82 Temp 36.6 C (97.8 F) (Temporal) Resp 16 Ht 173 cm (5' 8.11 ) Wt 69.6 kg (153 lb 6.4 oz) SpO2 100% BMI 23.25 kg/m ECOG 1 General: Alert and oriented, no distress, pleasant and cooperative. Heart: Regular, normal S1 and S2, no murmurs, rubs, or gallops. Lungs: Clear to auscultation bilaterally. Abdomen: Benign. Extremities: Feet/ankles without edema, posterior tibial pulses full and symmetrical. PATHOLOGY: 12/02/2021 TRUS biopsy ([facility]) [place] score 4+5=9 in multiple cores LABS: Hemoglobin (g/dL) Date Value 04/21/2023 8.6 Hematocrit (%) Date Value 04/21/2023 27.9 WBC (k/uL) Date Value 04/21/2023 3.57 Platelet Count (k/uL) Date Value 04/21/2023 165 PSA 03/16/2021 10.3 11/24/2021 629.7 12/24/2021 792 02/04/2022 257 04/08/2022 320.0 07/05/2022 119.7 10/14/2022 313.7 11/03/2022 359.9 12/08/2022 323.6 01/18/2023 742.7 02/10/2023 843.8 02/15/2023 857.4 03/17/2023 1,313 RADIOLOGY/OTHER STUDIES: 11/03/2022 PSMA PET scan IMPRESSION: HEAD/NECK: * No PSMA-expressing metastases. CHEST: * No PSMA-expressing metastases. ABDOMENS/PELVIS: * Abnormal diffuse tracer uptake in the prostate bilateral peripheral zones extending in the bilateral seminal vesicles compatible with PSMA expressing prostate cancer. * Previous pelvic lymphadenopathy on CT 11/24/2021 has resolved. A focus of tracer activity along the right aspect of the rectum which may be a small tracer avid perirectal node. No tracer lymphadenopathy otherwise. * Prostatomegaly and chronic circumferential bladder wall thickening, likely component of urinary outflow obstruction. BONES/EXTREMITIES: * Worsened widespread tracer avid sclerotic osseous metastases with Superscan appearance. 12/09/2021 Nuclear bone scan ([facility]) Diffuse and extensive abnormal foci throughout the bones including the spine, ribs, pelvis, calvarium, scapula, humerus, sternum and femurs. Consistent with diffuse and extensive bone metastases. 11/24/2021 CT Abd/Pelvis ([facility]) Unremarkable bowel. No acute findings. Wall thickening of the urinary bladder likely due to muscular hypertrophy. Numerous skeletal lesions and enlarged prostate suggest prostate cancer. 11/24/2021 chest x-ray ([facility]) Hyperexpanded lungs. No acute cardiopulmonary process. ASSESSMENT/PLAN: 1. Prostate cancer (HCC) - ICD9: 185, ICD10: C61 (primary diagnosis) Metastatic prostate cancer initially diagnosed November 2021. The patient presented with a markedly elevated PSA. Prostate biopsy 12/02/2021 confirmed adenocarcinoma, [place] 4+5=9. Baseline bone scan 12/09/2021 revealed extensive bone metastases. CT abdomen/pelvis and chest x-ray revealed no evidence of visceral metastases. 12/14/2021 the patient received Lupron 45 mg IM and has continued every 6 months since (given by Dr. Muller). Casodex 50 mg daily started November 2021. The patient's PSA initially dropped, but increased by March 2022. March 2022 Casodex was discontinued and second line antiand rogen therapy with enzalutamide started. On second line hormonal therapy the patient's PSA initially dropped, but increased by September 2022. PSMA PET scan 11/03/2022 revealed significant progressive disease in bones ( SuperScan ). Subsequently it was elected to change treatment to third line hormonal therapy with abiraterone/prednisone starting 11/06/2022. The patient's PSA initially stabilized, but by01/18/2023 increased significantly. He was seen by radiation oncology, and because of his anemia andextensive bone/bone marrow involvement it was felt the patient was not a candidate for Xofigo. Subsequently abiraterone/prednisone was discontinued and the patient's treatment was changed to Taxotere. Because of his age and performance status it was elected to treat with low-dose Taxotere 3 weeks on 1 week off. Cycle 1 started 01/21/2023. The patient remained clinically stable on chemotherapy, but ultimately PSA increased significantly. Taxotere was discontinued after cycle 2-day 8 on 03/24/2023. S ubsequently he was referred to [facility] (Dr. Oconnor) and recommendations were to proceed with Pluvicto. Current plans are to receive his first treatment on 04/27/2023, and subsequently every 6 weeks as tolerated. The patient also will continue with Lupron every [address] Muller, next injection due April 2023. 2. Bone metastases (HCC) - ICD9: 198.5, ICD10: C79.51 Extensive bone metastases on baseline bone scan 12/09/2021. Plan resorptive therapy with Xgeva started 01/07/2022 with plans to give every 3 months. Next injection due today. 3. 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 The patient's anemia subsequently worsened after starting chemotherapy. Retacrit started 03/24/2023 for the treatment of chemotherapy-induced anemia, with plans to give weekly as needed for hemoglobin less than 10. We willalso arrange for blood transfusion as needed to maintain hemoglobin greater than 10 prior to his Pluvicto treatment. Next transfusion will be scheduled for 04/25/2023. 4. Cancer related pain Diffuse bone pain secondary bone mets. [place] started Mar 2023 with relief. The patient will receive his next EPO injection on 04/25/2023. He is scheduled to see Dr. Oconnor at [facility] for Pluvicto on 04/27/2023. I will see him back in 2 weeks for follow-up. Juancho Aldridge MD CC: Dr. Muller, [facility] urology documented in this encounterLakehealth Beachwood Medical Center11-29-2023 Miscellaneous Notes* Telephone Encounter - Lexii Knowles RN - 04/20/2023 12:45 PM EST Nothing you need to do. * Telephone Encounter - Lexii Knowles RN - 04/20/2023 7:53 AM EST [facility] as it is approved. We have authorizatrion for the first4 treatments and will need to resubmit in September to cover the October and November treatments. * Telephone Encounter - Mercedes Jefferson - 04/15/2023 12:58 PM EST Karin Mart('s) insurance company branch sales and service representative: Ileana from [facility] is calling Karma Oconnor MD today regarding Care Coordination (Lutitium and injection) Prior auth needs to go to [facility] not [employer]. It also has other patient info attached. Medication code for PA to go to [facility] [id number]. Admininstrtion CPT 16313 does not require PA and goes along with other to [facility]. to contact [facility]. [employer] will dismiss this. Note said it should start Apr.27. per Dr. Oconnor. Patient has been identified by name and birthdate. Duration of symptoms: N/A Requesting response back: [phone] (home) [phone] (work) [phone] (cell) Mercedes Jefferson April 15, 2023 documented in this encounterLakehealth Beachwood Medical Center11-20-2023 Miscellaneous Notes* Telephone Encounter - Nikki Jensen - 04/11/2023 8:12 AM EST 2 units of packed RBC[facility] at [facility] on Tuesday04-08-23 documented in this encounterLakehealth Beachwood [facility] Center11-17-2023 NoteOur [facility]11-17-2023 History of Present illness Narrative* Guerita Toribio RN - 04/08/2023 4:37 PM EST Pharmacist Lisa from [facility] called to notify office per insurance, can only approve first 4 cycles of Pluvicto. Pt will need a renewal request for C5 and C6 of Pluvicto. ANDREINA Tejeda and Dr. Oconnor notified. documented in this encounterLakehealth Beachwood Medical Center11-16-2023 NoteOur [facility] Of Mercy [facility]11-16-2023 History of Present illness Narrative* Savanna Adrian PA-C - 04/07/2023 1:30 PM EST PATIENT NAME: Karin Mart DATE: 04/07/2023 PRIMARY CARE PHYSICIAN: Dr. Nina Smith OTHER PHYSICIANS: Dr. Muller, Dr. Oconnor (Elements copied from my note dated March, have been reviewed and updated where appropriate, and all reflect current assessment and medical decision making during today's encounter, April 07, 2023) CC: This is an 82 year old male with metastatic prostate cancer, seen for scheduled follow-up and continued treatment. INTERIM HISTORY: Mr. Mart returns for follow up. The current plan is to start Pluvicto with his first dose being 04/27/2023. He will receive this every 6 weeks. He will need a CBC every week prior to the Pluvicto therapy with a goal of hgb >10 at the time of his treatment. At this time he is feeling well he does notice increased fatigue and some ONEAL. Denies any chest pain. MEDICATIONS: Current Outpatient Medications Medication Sig ondansetron (ZOFRAN) 8 mg tablet Take 1 tablet by mouth every 8 hours as needed for nausea/vomiting. prochlorperazine (COMPAZINE) 10 mg tablet Take 1 tablet by mouth every 6 hours as needed. naproxen sodium (ALEVE ORAL) Take by mouth. tamsulosin (FLOMAX) 0.4 mg Take by mouth twice daily. CALCIUM-VITAMIN D3 ORAL Take 1 tablet by mouth once daily. No current facility-administered medications for this visit. ALLERGIES: ALLERGIES No Known Allergies PAST MEDICAL HISTORY: PAST MEDICAL HISTORY Diagnosis Date Prostate cancer (HCC) PAST SURGICAL HISTORY: PAST SURGICAL HISTORY Procedure Laterality Date COLONOSCOPY PROSTATE BIOPSY FAMILY HISTORY: FAMILY HISTORY Problem Relation Age of Onset Emphysema Father SOCIAL HISTORY: Social History Tobacco Use Smoking status: Former Packs/day: 1.00 Years: 5.00 Additional pack years: 0.00 Total pack years: 5.00 Types: Cigarettes Quit date: 1966 Years since quittin.9 Passive exposure: Past Smokeless tobacco: Never Vaping Use Vaping Use: Never used Substance Use Topics Alcohol use: Yes Comment: occ Drug use: Never REVIEW OF SYSTEMS: General: No weight loss, malaise or fevers. HEENT: Negative for frequent or significant headaches. No changes in hearing or vision, no nose bleeds or other nasal problems. Respiratory: Negative for cough, wheezing or shortness of breath. Cardiovascular: Negative for chest pain, leg swelling or palpitations. GI: Negative for abdominal discomfort, blood in stools or black stools or change in bowel habits. : No history of dysuria, frequency or incontinence. Musculoskeletal: Negative for joint pain or swelling, back pain and muscle pain. Skin: +healing incision on left forearm Hematology/Lymphology: Negative for prolonged bleeding, bruising easily or swollen nodes. Neuro: No history of headaches, syncope, paralysis, seizures or tremors. PHYSICAL EXAM: BP 126/87 Pulse 66 Temp 36.4 C (97.6 F) (Temporal) Resp 16 Ht 173 cm (5' 8.11 ) Wt 69 kg (152 lb 3.2 oz) SpO2 98% BMI 23.07 kg/m ECOG 1 General: Alert and oriented, no distress, pleasant and cooperative. Heart: Regular, normal S1 and S2, no murmurs, rubs, or gallops. Lungs: Clear to auscultation bilaterally. Abdomen: Benign. Extremities: Feet/ankles without edema, posterior tibial pulses full and symmetrical. Skin: incision left forearm healing PATHOLOGY: 12/02/2021 TRUS biopsy ([facility]) [place] score 4+5=9 in multiple cores LABS: Hemoglobin (g/dL) Date Value 04/07/2023 6.8 Hematocrit (%) Date Value 04/07/2023 22.2 WBC (k/uL) Date Value 04/07/2023 3.58 Platelet Count (k/uL) Date Value 04/07/2023 137 PSA 03/16/2021 10.3 11/24/2021 629.7 12/24/2021 792 02/04/2022 257 04/08/2022 320.0 07/05/2022 119.7 10/14/2022 313.7 11/03/2022 359.9 12/08/2022 323.6 01/18/2023 742.7 02/10/2023 843.8 02/15/2023 857.4 03/17/2023 1,313 RADIOLOGY/OTHER STUDIES: 11/03/2022 PSMA PET scan IMPRESSION: HEAD/NECK: * No PSMA-expressing metastases. CHEST: * No PSMA-expressing metastases. ABDOMENS/PELVIS: * Abnormal diffuse tracer uptake in the prostate bilateral peripheral zones extending in the bilateral seminal vesicles compatible with PSMA expressing prostate cancer. * Previous pelvic lymphadenopathy on CT 11/24/2021 has resolved. A focus of tracer activity along the right aspect of the rectum which may be a small tracer avid perirectal node. No tracer lymphadenopathy otherwise. * Prostatomegaly and chronic circumferential bladder wall thickening, likely component of urinary outflow obstruction. BONES/EXTREMITIES: * Worsened widespread tracer avid sclerotic osseous metastases with Superscan appearance. 12/09/2021 Nuclear bone scan ([facility]) Diffuse and extensive abnormal foci throughout the bones including the spine, ribs, pelvis, calvarium, scapula, humerus, sternum and femurs. Consistent with diffuse and extensive bone metastases. 11/24/2021 CT Abd/Pelvis ([facility]) Unremarkable bowel. No acute findings. Wall thickening of the urinary bladder likely due to muscular hypertrophy. Numerous skeletal lesions and enlarged prostate suggest prostate cancer. 11/24/2021 chest x-ray ([facility]) Hyperexpanded lungs. No acute cardiopulmonary process. ASSESSMENT/PLAN: 1. Prostate cancer (HCC) - ICD9: 185, ICD10: C61 (primary diagnosis) Metastatic prostate cancer initially diagnosed November 2021. The patient presented with a markedly elevated PSA. Prostate biopsy 12/02/2021 confirmed adenocarcinoma, [place] 4+5=9. Baseline bone scan 12/09/2021 revealed extensive bone metastases. CT abdomen/pelvis and chest x-ray revealed no evidence of visceral metastases. 12/14/2021 the patient received Lupron 45 mg IM and has continued every 6 months since (given by Dr. Muller). Casodex 50 mg daily started November 2021. The patient's PSA initially dropped, but increased by March 2022. March 2022 Casodex was discontinued and second line antiand rogen therapy with enzalutamide started. On second line hormonal therapy the patient's PSA initially dropped, but increased by September 2022. PSMA PET scan 11/03/2022 revealed significant progressive disease in bones ( SuperScan ). Subsequently it was elected to change treatment to third line hormonal therapy with abiraterone/prednisone starting 11/06/2022. The patient's PSA initially stabilized, but by01/18/2023 increased significantly. He was seen by radiation oncology, and because of his anemia andextensive bone/bone marrow involvement it was felt the patient was not a candidate for Xofigo. Subsequently abiraterone/prednisone was discontinued and the patient's treatment was changed to Taxotere. Because of his age and performance status it was elected to treat with low-dose Taxotere 3 weeks on 1 week off. Cycle 1 started 01/21/2023. The patient has tolerated treatment well, but unfortunately his PSA continues to increase. He was seen by Dr. Oconnor at [facility] and the plan is a trial of Pluvicto. We will plan to hold additional chemotherapy at we would like to optimize his blood counts prior to Pluvicto. We will proceed with Retacrit weekly as well as provide transfusions prior to his Pluvicto therapy. Currently his first Pluvicto is scheduled for 04/27/2023. His hemoglobin si 6.8 today and we will arrange for 2 units of PRBCs to be transfused this week and he will receive his Retacrit as well. He will have labs and retacrit in one week and see us in 2 weeks. The patient also will continue with Lupron every [address] Muller, next injection due April 2023. 2. Bone metastases (HCC) - ICD9: 198.5, ICD10: C79.51 Extensive bone metastases on baseline bone scan 12/09/2021. Xgeva started 01/07/2022 with plans to give every 3 months. Next injection due April 19 2023. 3. 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 He did require a blood transfusion 02/11/2023 which improved his symptoms. The patient's anemia subsequently worsened withchemotherapy. Retacrit was started 03/24/2023 for the treatment of chemotherapy-induced anemia, withplans to give weekly as needed for hemoglobin less than 10. His hemoglobin is 6.8 and he will receive his retacrit today as well as a transfusion of 2 units of PRBCs this week. He will need weekly CBC and retacrit as well. Savanna Adrian PA-C CC: Dr. Muller, [facility] urology documented in this encounterLakehealth Beachwood [facility] Center11-15-2023 Miscellaneous Notes* Telephone Encounter - Roma Penn - 04/06/2023 10:13 AM EST Savanna can you just put this in your check out notes and the girls will schedule him while hes here. * Telephone Encounter - Kelly Sevilla RN - 04/06/2023 8:01 AM EST Savanna: ESPERANZA, since pt is seeing you tomorrow. Clerical: Please schedule pt for weekly CBC and Retacrit. Thanks, Kelly Sevilla RN * Telephone Encounter - Juancho Aldridge MD - 04/05/2023 5:23 PM EST I would recommend weekly labs with EPO given weekly as needed. * Telephone Encounter - Kelly Sevilla RN - 04/05/2023 2:08 PM EST Images from the original note were not included. Pt's Pluvicto schedule is as follows: BRM: Per Malcom Nagy RNCC w/ Dr Oconnor, the pt will need to have labs drawn 1 week prior to eachtreatment. Pt would like these done at our office. She would like to know if you would prefer pt's labs be drawn weekly or bi-weekly at this time? Kelly Sevilla RN documented in this encounterLakehealth Beachwood [facility] Center11-14-2023 Miscellaneous Notes* Telephone Encounter - Lexii Knowles RN - 04/05/2023 11:16 AM EST Auth#: [id number] Date Range:04-27-23 to 09-23-23 for 4 treatments 800i will need to resubmit to cover --24 and 12-13-24. PLUVICTO/HCPC A9607/CPT 92338 (lutetium Scarlett 177 vipivotide tetraxetan) C61 200 mci each treatment every 6 weeks for 6 treatments. Start 04-27-23 NPI: KARMA OCONNOR [id number] Member ID :[facility] Medicare Advantage [id number] INS Contact Number: [facility] [phone] Tripp joel with [email or web address] portal Intake: Case/Ref#: Notes: 04-07-23 Called [facility] [phone] provider service benefits line Petros and Pluvicto A9607 is covered by [email or web address] as a Medical service call reference # [id number]. 04-07-23 called Aparna CARVAJAL at [phone] Chelo rigginsert for Pluvicto A9607, ( do [place] review for [address]73) pending case [id number] and will received call if additional clinical needed. 04-08-23 received fax approving Bernyo A9607 auth [id number] from 04-27-23 to 09-23-23 4 treatment [facility] will need to resubmit September 2023 for the last 2 dos 10-25-23 and 12-14-23. * Telephone Encounter - Neelam Brock RT(R) - 04/04/2023 10:41 AM EST New Pluvicto, starting 04/27/23. documented in this encounterLakehealth Beachwood [facility] Center11-09-2023 NoteOur [facility]11-09-2023 History of Present illness Narrative* Savanna Adrian PA-C - 03/31/2023 1:00 PM EST PATIENT NAME: Karin Mart DATE: 03/31/2023 PRIMARY CARE PHYSICIAN: Dr. Nina Smith OTHER PHYSICIANS: Dr. Muller, Dr. Oconnor (Elements copied from Dr. Aldridge's note dated March 24, 2023, have been reviewed and updated where appropriate, and all reflect current assessment and medical decision making during today's encounter, March 31, 2023) CC: This is an 82 year old male with metastatic prostate cancer, seen for scheduled follow-up and continued treatment. INTERIM HISTORY: Mr. Mart returns for follow up. He saw Dr. Oconnor yesterday for evaluation and consideration of Pluvicto treatment. They are hoping to start this in 3-4 weeks. Overall he feels well. He does have some fatigue, but denies any shortness of breath, swelling, or dizziness. He is still waiting on pathology from his left forearm surgery. MEDICATIONS: Current Outpatient Medications Medication Sig ondansetron (ZOFRAN) 8 mg tablet Take 1 tablet by mouth every 8 hours as needed for nausea/vomiting. prochlorperazine (COMPAZINE) 10 mg tablet Take 1 tablet by mouth every 6 hours as needed. naproxen sodium (ALEVE ORAL) Take by mouth. tamsulosin (FLOMAX) 0.4 mg Take by mouth twice daily. CALCIUM-VITAMIN D3 ORAL Take 1 tablet by mouth once daily. No current facility-administered medications for this visit. ALLERGIES: ALLERGIES No Known Allergies PAST MEDICAL HISTORY: PAST MEDICAL HISTORY Diagnosis Date Prostate cancer (HCC) PAST SURGICAL HISTORY: PAST SURGICAL HISTORY Procedure Laterality Date COLONOSCOPY PROSTATE BIOPSY FAMILY HISTORY: FAMILY HISTORY Problem Relation Age of Onset Emphysema Father SOCIAL HISTORY: Social History Tobacco Use Smoking status: Former Packs/day: 1.00 Years: 5.00 Additional pack years: 0.00 Total pack years: 5.00 Types: Cigarettes Quit date: 1966 Years since quittin.8 Passive exposure: Past Smokeless tobacco: Never Vaping Use Vaping Use: Never used Substance Use Topics Alcohol use: Yes Comment: occ Drug use: Never REVIEW OF SYSTEMS: General: No weight loss, malaise or fevers. HEENT: Negative for frequent or significant headaches. No changes in hearing or vision, no nose bleeds or other nasal problems. Respiratory: Negative for cough, wheezing or shortness of breath. Cardiovascular: Negative for chest pain, leg swelling or palpitations. GI: Negative for abdominal discomfort, blood in stools or black stools or change in bowel habits. : No history of dysuria, frequency or incontinence. Musculoskeletal: Negative for joint pain or swelling, back pain and muscle pain. Skin: +healing incision on left forearm with sutures in place Hematology/Lymphology: Negative for prolonged bleeding, bruising easily or swollen nodes. Neuro: No history of headaches, syncope, paralysis, seizures or tremors. PHYSICAL EXAM: BP 104/67 Pulse 67 Temp 36.4 C (97.6 F) (Temporal) Resp 16 Ht 173 cm (5' 8.11 ) Wt 67.6 kg (149 lb) SpO2 100% BMI 22.58 kg/m ECOG 1 General: Alert and oriented, no distress, pleasant and cooperative. Heart: Regular, normal S1 and S2, no murmurs, rubs, or gallops. Lungs: Clear to auscultation bilaterally. Abdomen: Benign. Extremities: Feet/ankles without edema, posterior tibial pulses full and symmetrical. Skin: incision left forearm with intact sutures without erythema or warmth or drainage PATHOLOGY: 12/02/2021 TRUS biopsy ([facility]) Gosia score 4+5=9 in multiple cores LABS: Hemoglobin (g/dL) Date Value 03/30/2023 7.4 Hematocrit (%) Date Value 03/30/2023 24.2 WBC (k/uL) Date Value 03/30/2023 4.84 Platelet Count (k/uL) Date Value 03/30/2023 148 PSA 03/16/2021 10.3 11/24/2021 629.7 12/24/2021 792 02/04/2022 257 04/08/2022 320.0 07/05/2022 119.7 10/14/2022 313.7 11/03/2022 359.9 12/08/2022 323.6 01/18/2023 742.7 02/10/2023 843.8 02/15/2023 857.4 03/17/2023 1,380 RADIOLOGY/OTHER STUDIES: 11/03/2022 PSMA PET scan IMPRESSION: HEAD/NECK: * No PSMA-expressing metastases. CHEST: * No PSMA-expressing metastases. ABDOMENS/PELVIS: * Abnormal diffuse tracer uptake in the prostate bilateral peripheral zones extending in the bilateral seminal vesicles compatible with PSMA expressing prostate cancer. * Previous pelvic lymphadenopathy on CT 11/24/2021 has resolved. A focus of tracer activity along the right aspect of the rectum which may be a small tracer avid perirectal node. No tracer lymphadenopathy otherwise. * Prostatomegaly and chronic circumferential bladder wall thickening, likely component of urinary outflow obstruction. BONES/EXTREMITIES: * Worsened widespread tracer avid sclerotic osseous metastases with Superscan appearance. 12/09/2021 Nuclear bone scan ([facility]) Diffuse and extensive abnormal foci throughout the bones including the spine, ribs, pelvis, calvarium, scapula, humerus, sternum and femurs. Consistent with diffuse and extensive bone metastases. 11/24/2021 CT Abd/Pelvis ([facility]) Unremarkable bowel. No acute findings. Wall thickening of the urinary bladder likely due to muscular hypertrophy. Numerous skeletal lesions and enlarged prostate suggest prostate cancer. 11/24/2021 chest x-ray ([facility]) Hyperexpanded lungs. No acute cardiopulmonary process. ASSESSMENT/PLAN: 1. Prostate cancer (HCC) - ICD9: 185, ICD10: C61 (primary diagnosis) Metastatic prostate cancer initially diagnosed November 2021. The patient presented with a markedly elevated PSA. Prostate biopsy 12/02/2021 confirmed adenocarcinoma, Gosia 4+5=9. Baseline bone scan 12/09/2021 revealed extensive bone metastases. CT abdomen/pelvis and chest x-ray revealed no evidence of visceral metastases. 12/14/2021 the patient received Lupron 45 mg IM and has continued every 6 months since (given by Dr. Muller). Casodex 50 mg daily started November 2021. The patient's PSA initially dropped, but increased by March 2022. March 2022 Casodex was discontinued and second line antiand rogen therapy with enzalutamide started. On second line hormonal therapy the patient's PSA initially dropped, but increased by September 2022. PSMA PET scan 11/03/2022 revealed significant progressive disease in bones ( SuperScan ). Subsequently it was elected to change treatment to third line hormonal therapy with abiraterone/prednisone starting 11/06/2022. The patient's PSA initially stabilized, but by01/18/2023 increased significantly. He was seen by radiation oncology, and because of his anemia andextensive bone/bone marrow involvement it was felt the patient was not a candidate for Xofigo. Subsequently abiraterone/prednisone was discontinued and the patient's treatment was changed to Taxotere. Because of his age and performance status it was elected to treat with low-dose Taxotere 3 weeks on 1 week off. Cycle 1 started 01/21/2023. The patient has tolerated treatment well, but unfortunately his PSA continues to increase. He was seen by Dr. Oconnor at [facility] and the plan is a trial of Pluvicto. We will plan to hold additional chemotherapy at we would like to optimize his blood counts prior to Pluvicto. We will proceed with Retacrit weekly as well as provide transfusions prior to his Pluvicto therapy. The patient also will continue with Lupron every [address] Muller, next injection due April 2023. 2. Bone metastases (HCC) - ICD9: 198.5, ICD10: C79.51 Extensive bone metastases on baseline bone scan 12/09/2021. Xgeva started 01/07/2022 with plans to give every 3 months. Next injection due March 2023. 3. 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 He did require a blood transfusion 02/11/2023 which improved his symptoms. The patient's anemia subsequently worsened withchemotherapy. Retacrit was started 03/24/2023 for the treatment of chemotherapy-induced anemia, withplans to give weekly as needed for hemoglobin less than 10. His hemoglobin is 7.4 today and we willproceed with Retacrit today. He will return in 1 week for labs and Retacrit. He may need a transfusion if his hemoglobin drops below 7.0 Savanna Adrian PA-C CC: Dr. Muller, [facility] urology documented in this encounterLakehealth Beachwood [facility] Center11-09-2023 Miscellaneous Notes* Telephone Encounter - Kelly Sevilla RN - 03/31/2023 8:33 AM EST Pt states that Dr Oconnor informed him yesterday that we would be canceling today's treatment. Discussed w/ Dr Aldridge. instructs to have pt come in today for labs and RV w/ Savanna. Pt notifiedand reports that they livia his labs yesterday. Yesterday's CBC shows pt's hgb as 7.4. Pt denies any increase in fatigue or dyspnea. Advised pt to come in today as scheduled to see Savanna and receive Retacrit. Pt verbalizes understanding and agrees. Kelly Sevilla RN documented in this encounterLakehealth Beachwood [facility] Center11-08-2023 History and physical note * Karma Oconnor MD - 03/30/2023 6:34 PM EST [facility] INITIAL CONSULT Consultation requested by Dr. Aldridge for an opinion regarding mCRPC. My final recommendations will be communicated back to the requesting physician by way of shared Medical record or letter to requesting physician via US mail. SERVICE DATE: March 30, 2023 CHIEF COMPLAINT: mCRPC ONCOLOGIC HISTORY: Oncology History Prostate cancer (HCC) 12/02/2021 Biopsy [place] 4+5 in setting of markedly elevated PSA 12/09/2021 Imaging Extensive bone metastases on bone scan 12/14/2021 - Hormone Therapy leuprolide 11/2021 - 03/2022 Oral Chemo Bicalutamide - stopped due to PSA progression 03/2022 - 10/2022 Oral Chemo Enzalutamide - stopped due to progression 11/06/2022 Progression PSMA PET - significant progressive disease Superscan 11/06/2022 - 01/18/2023 Oral Chemo Abiraterone acetate + prednisone - initial disease stability, then PSA started worsening 02/10/2023 - Chemotherapy Docetaxel 30 mg/m2 D1, D8, D15 q28 days Malignant neoplasm metastatic to bone (HCC) 12/24/2021 Initial Diagnosis Bone metastases (HCC) HISTORY OF PRESENT ILLNESS: Karin Mart is a 82 year old male here for initial consult regarding mCRPC He is accompanied by his , Verito. 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 Started initially on CAB with ADT + bicalutamide, switched to enzalutamide in March 2022 due to disease progression. He then was on this until October 2022 when he again developed disease progression ( superscan ) on PSMA PET scan. Transitioned to abiraterone acetate + prednisone with short disease control until December 2022. Then started subsequent line docetaxel on 02/10/23 with PSA now rising. His course has been c/b cytopenias, attributed to marrow infiltration from cancer. His last RBC transfusion was around when chemotherapy started in January, however. 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 He is otherwise still able to do his ADLs, and was doing yard work the other day. REVIEW OF SYSTEMS: Review of Systems All other systems reviewed and are negative. PAST MEDICAL HISTORY: PAST MEDICAL HISTORY Diagnosis Date Prostate cancer (HCC) PAST SURGICAL HISTORY: PAST SURGICAL HISTORY Procedure Laterality Date COLONOSCOPY PROSTATE BIOPSY FAMILY HISTORY: FAMILY HISTORY Problem Relation Age of Onset Emphysema Father SOCIAL HISTORY: Social History Tobacco Use Smoking status: Former Packs/day: 1.00 Years: 5.00 Additional pack years: 0.00 Total pack years: 5.00 Types: Cigarettes Quit date: 1966 Years since quittin.8 Passive exposure: Past Smokeless tobacco: Never Vaping Use Vaping Use: Never used Substance Use Topics Alcohol use: Yes Comment: [facility] Drug use: Never Employer And Job Title: None on file Years Of Education Completed: Not specified Marital Status: ALLERGIES/INTOLERANCES: ALLERGIES No Known Allergies CURRENT MEDICATIONS: predniSONE (DELTASONE) 10 mg tablet Take 1 tablet by mouth once daily. ondansetron (ZOFRAN) 8 mg tablet Take 1 tablet by mouth every 8 hours as needed for nausea/vomiting. prochlorperazine (COMPAZINE) 10 mg tablet Take 1 tablet by mouth every 6 hours as needed. naproxen sodium (ALEVE ORAL) Take by mouth. tamsulosin (FLOMAX) 0.4 mg Take by mouth twice daily. CALCIUM-VITAMIN D3 ORAL Take 1 tablet by mouth once daily. cephALEXin (KEFLEX) 500 mg capsule (Patient not taking: Reported on 03/30/2023) [DISCONTINUED] abiraterone 250 mg tablet Take 4 tablets by mouth once daily. PHYSICAL EXAM: ECO- Restricted in physically strenuous activity. Carries out light duty. BP 121/54 Pulse 77 Temp 37 C (98.6 F) (Oral) Resp 20 Ht 173 cm (5' 8.11 ) Wt 67 kg (147 lb 11.2 oz) SpO2 100% BMI 22.39 kg/m BMI 22.39 kg/(m^2) Physical Exam Vitals reviewed. Neurological: General: No focal deficit present. Mental Status: He is alert. Mental status is at baseline. Psychiatric: Mood and Affect: Mood normal. Behavior: Behavior normal. Thought Content: Thought content normal. Judgment: Judgment normal. LABS: WBC (k/uL) Date Value 03/30/2023 4.84 RBC (m/uL) Date Value 03/30/2023 2.51 (L) Hemoglobin (g/dL) Date Value 03/30/2023 7.4 (L) Hematocrit (%) Date Value 03/30/2023 24.2 (L) MCV (fL) Date Value 03/30/2023 96.4 MCH (pg) Date Value 03/30/2023 29.5 MCHC (g/dL) Date Value 03/30/2023 30.6 RDW-CV (%) Date Value 03/30/2023 20.7 (H) Platelet Count (k/uL) Date Value 03/30/2023 148 (L) MPV (fL) Date Value 03/30/2023 9.3 Glucose (mg/dL) Date Value 03/30/2023 100 (H) BUN (mg/dL) Date Value 03/30/2023 20 Creatinine (mg/dL) Date Value 03/30/2023 0.94 Sodium (mmol/L) Date Value 03/30/2023 139 Potassium (mmol/L) Date Value 03/30/2023 5.1 Chloride (mmol/L) Date Value 03/30/2023 107 (H) CO2 (mmol/L) Date Value 03/30/2023 22 Protein, Total (g/dL) Date Value 03/30/2023 6.5 Albumin (g/dL) Date Value 03/30/2023 4.3 Calcium, Total (mg/dL) Date Value 03/30/2023 8.3 (L) Alkaline Phosphatase (U/L) Date Value 03/30/2023 271 (H) Bilirubin, Total (mg/dL) Date Value 03/30/2023 0.4 AST (U/L) Date Value 03/30/2023 25 ALT (U/L) Date Value 03/30/2023 15 URINALYSIS No results found for: PH , SPGR , UGLUC , UBILI , UKET , UHB , UPROT , UROBIL , UWBC , SSA IMAGING: reviewed PSMA PET scan IMPRESSION AND PLAN: #mCRPC 82 y.o. M with mCRPC here for consideration of Lutetium Scarlett 177 Vipivotide Tetraxetan Pt has good prognostic awareness that mCRPC is incurable and will very likely become fatal. We discussed the palliative nature of any treatment. At this time, he likely has disease progression on docetaxel, though his performance status remainspretty good. Could consider cabazitaxel or Lutetium Scarlett 177 Vipivotide Tetraxetan. His cytopenias would be a problem either way. However, given that his cytopenias are likely driven by bone marrow infiltration from the underlying cancer, it would be reasonable to try to use transfusion support to get him through cancer-directed therapy with the hope his blood counts will improve. I would stop any further docetaxel given unclear benefit and given myelosuppression. I would check his hemoglobin and transfuse for target of 10 so we can proceed with Lutetium Scarlett 177 Vipivotide Tetraxetan. We discussed radiation safety considerations with Scarlett 177. Will also send Guardant 360 off - though acknowledge that it is less likely we will find a target that will be actionable. PLAN: 1) recommend stopping docetaxel 2) start authorization process for Lutetium Scarlett 177 Vipivotide Tetraxetan 3) discuss with Dr. Aldridge - will need transfusion support prior to Lutetium Scarlett 177 Vipivotide Tetraxetan treatments I spent a total of 40 minutes on the date of the service which included preparing to see the patient, [id number] patient care, completing clinical documentation, obtaining and/or reviewing separately obtained history, counseling and educating the patient/family/caregiver, ordering medications, naya ts, or procedures, and communicating with other HCPs (not separately reported). Karma Oconnor MD Associate Staff, Genitourinary Medical Oncology March 30, 2023 6:34 PM cc: Juancho Duarte MD documented in this encounterLakehealth Beachwood Medical Center11-08-2023 Nurse Note* Nhung Kyle LPN - 03/30/2023 2:56 PM EST Additional intake questions: Has the patient had fever, nausea, vomiting, diarrhea, constipation, fatigue for > 1 week? Yes, constipation (day of last BM 03/30/23) and fatigue Does the patient have a decreased appetite? No Does patient want to see a Chief Steward/Stewardess? No (yes to any of above refer patient to schedulers for dietitian appointment) ) Does patient have any new or increased numbness or tingling of extremities? Yes, hands Is patient interested in fertility information? No Does patient need any prescription refills? No Does patient have an advanced directive in place? No, Patient refused referral to Social Work or Resource Center documented in this encounterLakehealth Beachwood Medical Center11-02-2023 NoteOur [facility]10-26-2023 NoteOur [facility]10-12-2023 NoteOur [facility]10-12-2023 History of Present illness Narrative* Millie Garces RN - 03/03/2023 2:[address] Aldridge gave new orders for Aung to receive zofran 8 mg iv as a premed today and all future cycles due to unexpected nausea and vomiting during pt's last infusion. Sheila Damon [facility] plans to place orders per Dr. Aldridge's request. Millie Garces RN documented in this encounterLakehealth Beachwood Medical Center10-05-2023 NoteOur [facility]10-05-2023 Miscellaneous Notes* Telephone Encounter - Estefany Foster LISW - 02/24/2023 10:27 AM EDT PSYCHOSOCIAL ASSESSMENT Date of Service: February 24, 2023 Karin Mart is a 82 year old male being seen for initial social work assessment. SW called pt this date d/t pt presenting on [place] 1st time treatment report indicating need for a psychoscial assessment. Pt did not answer, SW left detailed message with direct callback number. Information in assessment below obtained from pt's chart. Diagnosis: Prostate Cancer New Primary Oncologist: Juancho Aldridge MD Radiation Oncologist: Seen by [facility] however not a candidate d/t anemia and extensive bone/bone marrow involvement d/t note 02/10. Goals of Care: Palliative care Family History of Cancer: None reported EMPLOYMENT/FINANCIAL/HEALTH Insurance: Medicare HMO Prescription coverage: Yes CLINICAL IMPRESSION: SW called pt this date d/t pt presenting on [place] 1st time treatment report indicating need for a psychoscial assessment. Pt did not answer, SW left detailed message with direct callback number. SW also left the main line for urgent needs ([phone]) on pt's voicemail. PLAN: SW team to follow pt at upcoming appointments and remain in contact with pt throughout treatment to address any psychosocial concerns if needed. Follow up appointment with STEVE in: KIMBER Martinez documented in this encounterLakehealth Beachwood Medical Center10-05-2023 NoteOur [facility]10-05-2023 History of Present illness Narrative* Juancho Aldridge MD - 02/24/2023 8:05 AM EDT PATIENT NAME: Karin Mart DATE: 02/24/2023 PRIMARY CARE PHYSICIAN: Dr. Nina Smith OTHER PHYSICIANS: Dr. Muller Portions of this encounter note have been copied from the note from 02/15/2023 and has been updated where appropriate, and reflect my current medical decision making from today. CC: This is an 82 year old male with metastatic prostate cancer, seen for scheduled follow-up. INTERIM HISTORY: The patient tolerated his first cycle of chemotherapy well. He subsequently traveled to [place] for his grandson's wedding and did well. On follow-up today he has no new complaints. Relatively mild pain controlled with medications. No urinary symptoms. Overall he feels well and desires to proceed with chemo as planned. MEDICATIONS: Current Outpatient Medications Medication Sig cephALEXin (KEFLEX) 500 mg capsule Take 1 capsule by mouth every 12 (twelve) hours. Has 5 days left predniSONE (DELTASONE) 10 mg tablet Take 1 tablet by mouth once daily. ondansetron (ZOFRAN) 8 mg tablet Take 1 tablet by mouth every 8 hours as needed for nausea/vomiting. prochlorperazine (COMPAZINE) 10 mg tablet Take 1 tablet by mouth every 6 hours as needed. naproxen sodium (ALEVE ORAL) Take by mouth. tamsulosin (FLOMAX) 0.4 mg Take by mouth twice daily. CALCIUM-VITAMIN D3 ORAL Take 1 tablet by mouth once daily. No current facility-administered medications for this visit. ALLERGIES: ALLERGIES No Known Allergies PAST MEDICAL HISTORY: PAST MEDICAL HISTORY Diagnosis Date Prostate cancer (HCC) PAST SURGICAL HISTORY: PAST SURGICAL HISTORY Procedure Laterality Date COLONOSCOPY PROSTATE BIOPSY FAMILY HISTORY: FAMILY HISTORY Problem Relation Age of Onset Emphysema Father SOCIAL HISTORY: Social History Tobacco Use Smoking status: Former Packs/day: 1.00 Years: 5.00 Additional pack years: 0.00 Total pack years: 5.00 Types: Cigarettes Quit date: 1966 Years since quittin.7 Passive exposure: Past Smokeless tobacco: Never Vaping Use Vaping Use: Never used Substance Use Topics Alcohol use: Yes Comment: occ Drug use: Never REVIEW OF SYSTEMS: General: No weight loss, malaise or fevers. HEENT: Negative for frequent or significant headaches. No changes in hearing or vision, no nose bleeds or other nasal problems. Respiratory: Negative for cough, wheezing or shortness of breath. Cardiovascular: Negative for chest pain, leg swelling or palpitations. GI: Negative for abdominal discomfort, blood in stools or black stools or change in bowel habits. : No history of dysuria, frequency or incontinence. Musculoskeletal: Negative for joint pain or swelling, back pain and muscle pain. Skin: Negative for lesions, rash and itching. Hematology/Lymphology: Negative for prolonged bleeding, bruising easily or swollen nodes. Neuro: No history of headaches, syncope, paralysis, seizures or tremors. PHYSICAL EXAM: BP 123/60 Pulse 77 Temp 36.4 C (97.5 F) (Temporal) Resp 18 Ht 169.8 cm (5' 6.85 ) Wt 68.2kg (150 lb 6.4 oz) SpO2 99% BMI 23.66 kg/m ECOG 1 General: Alert and oriented, no distress, pleasant and cooperative. Heart: Regular, normal S1 and S2, no murmurs, rubs, or gallops. Lungs: Clear to auscultation bilaterally. Abdomen: Benign. Extremities: Feet/ankles without edema, posterior tibial pulses full and symmetrical. PATHOLOGY: 12/02/2021 TRUS biopsy ([facility]) [place] score 4+5=9 in multiple cores LABS: Hemoglobin (g/dL) Date Value 02/24/2023 9.6 Hematocrit (%) Date Value 02/24/2023 30.9 WBC (k/uL) Date Value 02/24/2023 5.03 Platelet Count (k/uL) Date Value 02/24/2023 93 PSA 03/16/2021 10.3 11/24/2021 629.7 12/24/2021 792 02/04/2022 257 04/08/2022 320.0 07/05/2022 119.7 10/14/2022 313.7 11/03/2022 359.9 12/08/2022 323.6 01/18/2023 742.7 02/10/2023 843.8 02/15/2023 857.4 RADIOLOGY/OTHER STUDIES: 11/03/2022 PSMA PET scan IMPRESSION: HEAD/NECK: * No PSMA-expressing metastases. CHEST: * No PSMA-expressing metastases. ABDOMENS/PELVIS: * Abnormal diffuse tracer uptake in the prostate bilateral peripheral zones extending in the bilateral seminal vesicles compatible with PSMA expressing prostate cancer. * Previous pelvic lymphadenopathy on CT 11/24/2021 has resolved. A focus of tracer activity along the right aspect of the rectum which may be a small tracer avid perirectal node. No tracer lymphadenopathy otherwise. * Prostatomegaly and chronic circumferential bladder wall thickening, likely component of urinary outflow obstruction. BONES/EXTREMITIES: * Worsened widespread tracer avid sclerotic osseous metastases with Superscan appearance. 12/09/2021 Nuclear bone scan ([facility]) Diffuse and extensive abnormal foci throughout the bones including the spine, ribs, pelvis, calvarium, scapula, humerus, sternum and femurs. Consistent with diffuse and extensive bone metastases. 11/24/2021 CT Abd/Pelvis ([facility]) Unremarkable bowel. No acute findings. Wall thickening of the urinary bladder likely due to muscular hypertrophy. Numerous skeletal lesions and enlarged prostate suggest prostate cancer. 11/24/2021 chest x-ray ([facility]) Hyperexpanded lungs. No acute cardiopulmonary process. ASSESSMENT/PLAN: 1. Prostate cancer (HCC) - ICD9: 185, ICD10: C61 (primary diagnosis) Metastatic prostate cancer initially diagnosed November 2021. The patient presented with a markedly elevated PSA. Prostate biopsy 12/02/2021 confirmed adenocarcinoma, [place] 4+5=9. Bone scan obtained 12/09/2021 revealed extensive bone metastases. CT abdomen/pelvis and chest x-ray revealed no evidence of visceral metastases. 12/14/2021 the patient received Lupron 45 mg IM and has continued every 6 months since (given by Dr. Muller). Casodex 50 mg daily started November 2021. The patient's PSA initially dropped, but increased by March 2022. March 2022 Casodex was discontinued and second line antiand rogen therapy with enzalutamide started. On second line hormonal therapy the patient's PSA initially dropped, but increased by September 2022. PSMA PET scan 11/03/2022 revealed significant progressive disease in bones ( SuperScan ). Subsequently it was elected to change treatment to third line hormonal therapy with abiraterone/prednisone starting 11/06/2022. The patient's PSA initially stabilized, but by01/18/2023 increased significantly. He was seen by radiation oncology, and because of his anemia andextensive bone/bone marrow involvement it was felt the patient was not a candidate for Xofigo. His case was reviewed by the [facility] urologic oncology group, and it was recommended to discontin ue abiraterone/prednisone and proceed with chemotherapy (Taxotere). Options were discussed, and because of the patient's poor performance status we elected to treat with low-dose weekly Taxotere, with plans to give 3 weeks on 1 week off. Cycle 1 day 1 given 02/10/2023. Due to vacation plans day 8 was postponed. Currently the patient is clinically stable. The patient will receive cycle 1 day 8 today, and day 15 in 1 week. Return for follow-up in 3 weeks. If the patient does not respond to or tolerate Taxotere he would then be a candidate for Pluvicto. The patient also will continue with Lupron every [address] Muller, next injection due April 2023. 2. Bone metastases (HCC) - ICD9: 198.5, ICD10: C79.51 Extensive bone metastases on baseline bone scan 12/09/2021. Xgeva started 01/07/2022, with plans to give every 3 months. Next injection due March 2023 3. Anemia The patient has had significant progression of anemia as well as thrombocytopenia since December 2022, most likely secondary to bone marrow involvement from his metastatic cancer. He did require a blood transfusion 02/11/2023 which improved his symptoms. The patient's platelet count will be monitored closely while on chemotherapy, with plans to transfuse as needed. In the meantime he will avoid aspirin and NSAIDs. Juancho Aldridge MD CC: Dr. Muller, [facility] urology documented in this encounterLakehealth Beachwood [facility]09-26-2023 NoteOur [facility]09-25-2023 Miscellaneous Notes* Telephone Encounter - Fernanda Jeronimo MA - 02/14/2023 10:13 AM EDT Patient has an appt on 02/15/23. Would you like labs, if so place orders. Fernanda Jeronimo MA documented in this encounterLakehealth Beachwood Medical Center09-21-2023 NoteOur Lady Of Mercy [facility]09-21-2023 History of Present illness Narrative* Kelly Sevilla RN - 02/10/2023 3:32 PM EDT ONCOLOGY PATIENT EDUCATION NOTE TOPIC: Chemotherapy, Medications: Docetaxel READINESS TO LEARN: COGNITIVE ABILITY: Alert and oriented MOTIVATION TO LEARN: Interested FAMILY SUPPORT: High - Very involved in pt care INSTRUCTION PROVIDED TO: Patient and Spouse INSTRUCTION PROVIDED BY: Nurse Coordinator PATIENT LEARNS BEST BY: Multiple Methods FACTORS AFFECTING LEARNING: None PHYSICAL LIMITATIONS AFFECTING LEARNING: None LEARNING RESPONSE DIAGNOSIS: Prostate Cancer METHOD OF INSTRUCTION: Individual instruction Written instruction - handouts Verbal instruction PATIENT/FAMILY RESPONSE: Verbalizes understanding of: CHEMOTHERAPY-Regimen, toxicity and side effects INFECTION MANAGEMENT-Signs and symptoms of an infection and importance of contacting the physician SYMPTOM MANAGEMENT-Correct actions to take to manage symptoms associated with his/her disease/illness WORSENING CONDITION-Signs and symptoms of a worsening condition that warrant a call to the physician Information received as demonstrated by interest and questions FOLLOW UP PLAN: Patient instructed to call with any further issues Contact information given. SUPPLEMENTAL MATERIAL: Written material was provided at this visit with the following information: - Chemotherapy education was provided by a pharmacist NO - Side effect management information was provided/discussed including but not limited to: anemia, appetite changes, arthralgia, bowel habit changes, diet, electrolyte disturbances, fatigue, fluid retention, hair loss, hypersensitivity reaction, infection, mouth hygiene, mucositis, neutropenia, peripheral neuropathy, skin changes, thrombocytopenia YES - Provided important phone numbers and contacts during and after hours. YES - Provided information on symptoms that require immediate assistance. YES - Provided Chemotherapy when to call handouts YES - Preventing infection. YES - Treatment schedule and confirmation of appointment times. YES - Available support groups. YES - The importance of contraception during the course of chemotherapy YES - Prescriptions for anti-emetics or treatment prep was given: Compazine and Zofran. YES - Neutropenic fever protocol discussed with patient, which included the importance of reporting anyfever of 100.4F (38.0C) or greater to the healthcare team as noted on the provided wallet card and/or magnet. YES - 4[employer] Ram[employer] Information. YES - Patient services information. YES Time Spent: 25 minutes REFERRAL (RECOMMENDATION): N/A Kelly Sevilla, RN documented in this encounterLakehealth Beachwood Medical Center09-21-2023 Miscellaneous Notes* Telephone Encounter - Christine Guerrero - 02/10/2023 11:28 AM EDT Patient has been scheduled for transfusion tomorrow, 02/11 at [place] @ 8:30 am. He will get TSC today. Faxed order February 10, 2023 11:28 AM Christine Guerrero documented in this encounterLakehealth Beachwood Medical Center09-21-2023 NoteOur Lady Of Mercy [facility]09-21-2023 History of Present illness Narrative* Juancho Aldridge MD - 02/10/2023 7:17 AM EDT PATIENT NAME: Karin Mart DATE: 02/10/2023 PRIMARY CARE PHYSICIAN: Dr. Nina Smith OTHER PHYSICIANS: Dr. Muller Portions of this encounter note have been copied from the note from 01/18/2023 and has been updated where appropriate, and reflect my current medical decision making from today. CC: This is an 82 year old male with metastatic prostate cancer, seen for scheduled follow-up. INTERIM HISTORY: Since the patient's last visit here he was seen by Dr. Esparza, and because of progressive anemia and the extent of his bone and bone marrow involvement it was felt he was not a candidate for Xofigo. His case was reviewed by the [facility] urologic oncology team, and recommendations were to proceed with palliative chemotherapy consisting of Taxotere. Since his last visit the patient has had no significant medical changes. However, he feels much weaker with difficulties performing all of his activities. He has noticed increasing shortness of breath. His only pain is in his knees bilaterally for which he takes Aleve. He denies any severe back pain or other areas of painful metastases. MEDICATIONS: Current Outpatient Medications Medication Sig ondansetron (ZOFRAN) 8 mg tablet Take 1 tablet by mouth every 8 hours as needed for nausea/vomiting. prochlorperazine (COMPAZINE) 10 mg tablet Take 1 tablet by mouth every 6 hours as needed. naproxen sodium (ALEVE ORAL) Take by mouth. tamsulosin (FLOMAX) 0.4 mg Take by mouth twice daily. CALCIUM-VITAMIN D3 ORAL Take 1 tablet by mouth once daily. No current facility-administered medications for this visit. ALLERGIES: ALLERGIES No Known Allergies PAST MEDICAL HISTORY: PAST MEDICAL HISTORY Diagnosis Date Prostate cancer (HCC) PAST SURGICAL HISTORY: PAST SURGICAL HISTORY Procedure Laterality Date COLONOSCOPY PROSTATE BIOPSY FAMILY HISTORY: FAMILY HISTORY Problem Relation Age of Onset Emphysema Father SOCIAL HISTORY: Social History Tobacco Use Smoking status: Former Packs/day: 1.00 Years: 5.00 Additional pack years: 0.00 Total pack years: 5.00 Types: Cigarettes Quit date: 1966 Years since quittin.7 Passive exposure: Past Smokeless tobacco: Never Vaping Use Vaping Use: Never used Substance Use Topics Alcohol use: Yes Comment: occ Drug use: Never REVIEW OF SYSTEMS: General: No weight loss, malaise or fevers. HEENT: Negative for frequent or significant headaches. No changes in hearing or vision, no nose bleeds or other nasal problems. Respiratory: Negative for cough, wheezing or shortness of breath. Cardiovascular: Negative for chest pain, leg swelling or palpitations. GI: Negative for abdominal discomfort, blood in stools or black stools or change in bowel habits. : No history of dysuria, frequency or incontinence. Musculoskeletal: Negative for joint pain or swelling, back pain and muscle pain. Skin: Negative for lesions, rash and itching. Hematology/Lymphology: Negative for prolonged bleeding, bruising easily or swollen nodes. Neuro: No history of headaches, syncope, paralysis, seizures or tremors. PHYSICAL EXAM: BP 135/62 Pulse 82 Temp 36.4 C (97.6 F) (Temporal) Resp 18 Ht 169.8 cm (5' 6.85 ) Wt 70.2kg (154 lb 12.8 oz) SpO2 98% BMI 24.35 kg/m ECOG 1 General: Alert and oriented, no distress, pleasant and cooperative. Heart: Regular, normal S1 and S2, no murmurs, rubs, or gallops. Lungs: Clear to auscultation bilaterally. Abdomen: Benign. Extremities: Feet/ankles without edema, posterior tibial pulses full and symmetrical. PATHOLOGY: 12/02/2021 TRUS biopsy ([facility]) Gosia score 4+5=9 in multiple cores LABS: Hemoglobin (g/dL) Date Value 02/10/2023 7.0 Hematocrit (%) Date Value 02/10/2023 22.8 WBC (k/uL) Date Value 02/10/2023 3.15 Platelet Count (k/uL) Date Value 02/10/2023 80 PSA 03/16/2021 10.3 11/24/2021 629.7 12/24/2021 792 02/04/2022 257 04/08/2022 320.0 07/05/2022 119.7 10/14/2022 313.7 11/03/2022 359.9 12/08/2022 323.6 01/18/2023 742.7 RADIOLOGY/OTHER STUDIES: 11/03/2022 PSMA PET scan IMPRESSION: HEAD/NECK: * No PSMA-expressing metastases. CHEST: * No PSMA-expressing metastases. ABDOMENS/PELVIS: * Abnormal diffuse tracer uptake in the prostate bilateral peripheral zones extending in the bilateral seminal vesicles compatible with PSMA expressing prostate cancer. * Previous pelvic lymphadenopathy on CT 11/24/2021 has resolved. A focus of tracer activity along the right aspect of the rectum which may be a small tracer avid perirectal node. No tracer lymphadenopathy otherwise. * Prostatomegaly and chronic circumferential bladder wall thickening, likely component of urinary outflow obstruction. BONES/EXTREMITIES: * Worsened widespread tracer avid sclerotic osseous metastases with Superscan appearance. 12/09/2021 Nuclear bone scan ([facility]) Diffuse and extensive abnormal foci throughout the bones including the spine, ribs, pelvis, calvarium, scapula, humerus, sternum and femurs. Consistent with diffuse and extensive bone metastases. 11/24/2021 CT Abd/Pelvis ([facility]) Unremarkable bowel. No acute findings. Wall thickening of the urinary bladder likely due to muscular hypertrophy. Numerous skeletal lesions and enlarged prostate suggest prostate cancer. 11/24/2021 chest x-ray ([facility]) Hyperexpanded lungs. No acute cardiopulmonary process. ASSESSMENT/PLAN: 1. Prostate cancer (HCC) - ICD9: 185, ICD10: C61 (primary diagnosis) Metastatic prostate cancer initially diagnosed November 2021. The patient presented with a markedly elevated PSA. Prostate biopsy 12/02/2021 confirmed adenocarcinoma, [place] 4+5=9. Bone scan obtained 12/09/2021 revealed extensive bone metastases. CT abdomen/pelvis and chest x-ray revealed no evidence of visceral metastases. 12/14/2021 the patient received Lupron 45 mg IM and has continued every 6 months since (given by Dr. Muller). Casodex 50 mg daily started November 2021. The patient's PSA initially dropped, but increased by March 2022. March 2022 Casodex was discontinued and second line antiand rogen therapy with enzalutamide started. On second line hormonal therapy the patient's PSA initially dropped, but increased by September 2022. PSMA PET scan 11/03/2022 revealed significant progressive disease in bones ( SuperScan ). Subsequently it was elected to change treatment to third line hormonal therapy with abiraterone/prednisone starting 11/06/2022. The patient's PSA initially stabilized, but by01/18/2023 increased significantly. He was seen by radiation oncology, and because of his anemia andextensive bone/bone marrow involvement it was felt the patient was not a candidate for Xofigo. His case was reviewed by the [facility] urologic oncology group, and it was recommended to discontin ue abiraterone/prednisone and proceed with chemotherapy (Taxotere). If the patient does not respondto or tolerate Taxotere he would then be a candidate for Pluvicto. Because of the patient's poor performance status and rapid progression of pancytopenia we will treat with low-dose weekly Taxotere, with plans give 3 weeks on 1 week off as tolerated. He will receivecycle 1 day 1 today. He plans to travel to [place] in 1 week. I will see him back on 02/15 with labs. If stable we will then resume chemotherapy with cycle 1 day 15 in 2 weeks. The patient also will continue with Lupron every [address] Muller, next injection due April 2023. 2. Bone metastases (HCC) - ICD9: 198.5, ICD10: C79.51 Extensive bone metastases on baseline bone scan 12/09/2021. Xgeva started 01/07/2022, with plans to give every 3 months. Next injection due March 2023 3. Anemia The patient has had significant progression of anemia as well as thrombocytopenia since December 2022, most likely secondary to bone marrow involvement from his metastatic cancer. Current hemoglobin less than 8 and the patient is symptomatic with shortness of breath. We will arrange for a blood transfusion this week. The patient's platelet count will be monitored closely while on chemotherapy, withplans to transfuse as needed. In the meantime he will avoid aspirin and NSAIDs. Juancho Aldridge MD CC: Dr. Muller, [facility] urology documented in this encounterLakehealth Beachwood [facility] Center09-19-2023 Miscellaneous Notes* Telephone Encounter - Clemroberto Buddy - 02/08/2023 8:20 AM EDT Patient is active with [employer] Medicare, LOC 20%, $ 0.00 deductible and has $ 0.00 remaining, $ 6900 O-O-P has $ 4195.01 remaining. An estimate shows the patient's financial responsibility is $ 0.00 for each treatment in 2022 until the O-O-P max is reached. Reference # [id number] documented in this encounterLakehealth Beachwood Medical Center09-13-2023 NoteOur [facility] Of Mercy [facility]09-13-2023 History of Present illness Narrative* Lashell Esparza MD - 02/02/2023 8:35 AM EDT Radiation Oncology - Prostate Cancer New Patient/Consult Note PATIENT NAME: Karin Mart PATIENT REQUESTING PROVIDER: Dr. Aldridge DIAGNOSIS: Locally advanced and metastatic prostate adenocarcinoma, initial PSA 792, biopsy Gle[place] 4 + 5 = 9 (grade group 5) HPI: Patient returns due to concerns for progression of his known metastatic prostate cancer. Patient initially diagnosed November 2021 with [place] 9 adenocarcinoma prostate with bony metastasis and no visceral metastasis. Patient initiated ADT consisting of Lupron and bicalutamide with a significant PSA response initially. However by March 2022 PSA was climbing and and patient was started on enzalutamide. Patient had initial response however PSA started elevating again in September. Patient was switched to abiraterone and prednisone however his PSA has continued to increasesince that time as noted below. He underwent PSMA PET 11/03/2022 which demonstrated:IMPRESSION: HEAD/NECK: * No PSMA-expressing metastases. CHEST: * No PSMA-expressing metastases. ABDOMENS/PELVIS: * Abnormal diffuse tracer uptake in the prostate bilateral peripheral zones extending in the bilateral seminal vesicles compatible with PSMA expressing prostate cancer. * Previous pelvic lymphadenopathy on CT 11/24/2021 has resolved. A focus of tracer activity along the right aspect of the rectum which may be a small tracer avid perirectal node. No tracer lymphadenopathy otherwise. * Prostatomegaly and chronic circumferential bladder wall thickening, likely component of urinary outflow obstruction. BONES/EXTREMITIES: * Worsened widespread tracer avid sclerotic osseous metastases with Superscan appearance. LABORATORY: PSA history: PSA (ng/mL) Date Value 01/18/2023 742.70 12/08/2022 323.60 11/03/2022 359.90 10/14/2022 313.70 Hemoglobin (g/dL) Date Value 01/18/2023 9.6 Hematocrit (%) Date Value 01/18/2023 31.0 WBC (k/uL) Date Value 01/18/2023 4.55 Platelet Count (k/uL) Date Value 01/18/2023 153 Patient overall has some fatigue. He has some bilateral knee pain but denies other areas of significant pain. He denies any weakness fevers pelvic pain or hematuria. Prior Radiation Therapy, Collagen Vascular Disease, or Inflammatory Bowel Disease: No Currently on Anticoagulation: No History of Hip Replacement: No History of Prior TURP: No ALLERGIES No Known Allergies naproxen sodium (ALEVE ORAL) Take by mouth. abiraterone 250 mg tablet Take 4 tablets by mouth once daily. predniSONE (DELTASONE) 10 mg tablet Take 1 tablet by mouth once daily. tamsulosin (FLOMAX) 0.4 mg Take by mouth twice daily. CALCIUM-VITAMIN D3 ORAL Take 1 tablet by mouth once daily. PAST MEDICAL HISTORY Diagnosis Date Prostate cancer (HCC) PAST SURGICAL HISTORY Procedure Laterality Date COLONOSCOPY PROSTATE BIOPSY FAMILY HISTORY Problem Relation Age of Onset Emphysema Father Social History Tobacco Use Smoking status: Former Packs/day: 1.00 Years: 5.00 Additional pack years: 0.00 Total pack years: 5.00 Types: Cigarettes Quit date: 1967 Years since quittin.7 Passive exposure: Past Smokeless tobacco: Never Vaping Use Vaping Use: Never used Substance Use Topics Alcohol use: Yes Comment: occ Drug use: Never REVIEW OF SYSTEMS: NECK: denies swelling or pain in neck RESPIRATORY: no cough, no wheezing or shortness of breath CARDIOVASCULAR: no chest pain, no palpitations GI: normal appetite, tolerating PO well, BMs normal, and no abdominal pain : urination is normal MUSCULOSKELETAL: denies any painful or swollen joints, no muscle aches NEURO: no numbness or paresthesias and no weakness of the extremities As noted in HPI PHYSICAL EXAM: VS: BP 145/71 Pulse 80 Temp 36.1 C (97 F) Resp 16 Wt 68 kg (150 lb) SpO2 100% BMI 22.47kg/m KARNOFSKY PERFORMANCE STATUS: 100 General Appearance: Alert and oriented. No acute distress. Skin: No rashes noted Lymphatics: No palpable lymphadenopathy. GENITOURINARY: Deferred exam RECTAL: Deferred exam RADIOLOGY/LABORATORY DATA: see HPI ASSESSMENT/PLAN: Locally advanced and metastatic prostate adenocarcinoma, initial PSA 792, biopsy Gosia score 4 + 5 = 9 (grade group 5) Unfortunately patient has locally advanced, high-grade, castrate resistant prostate cancer with progression despite second line antiandrogen treatment. Patient only has 1 site of nonosseous involvement which is a small seminal vesicle area. Significant/extensive diffuse bony involvement (SuperScan). [place]-223 could be a consideration for the patient. I am concerned that his hemoglobin has been dropping steadily over the last 1 to 2 months and currently is less than 10 which is a relative contraindication to initiating course of treatment with radium-223. Also given the extent of his scan I doworry that his marrow toxicity due to radium 223 . We will discuss further with Dr. Aldridge certainly if other systemic options either failed or are not advisable a course of radiation 223 could be considered but again I do worry about potential hematologic risk. Signed by: Lashell Esparza MD cc: Nina Smith [facility] [place] [address] Isa Muller [address] [place] [address] documented in this encounterLakehealth Beachwood Medical Center08-30-2023 Miscellaneous Notes* Telephone Encounter - Roma Penn - 01/19/2023 2:47 PM EDT Patient is called and scheduled for next week for appt * Telephone Encounter - Kelly Sevilla RN - 01/19/2023 1:49 PM EDT Pt notified and verbalizes understanding. Clerical: Please schedule w/ [facility]. Kelly Sevilla RN * Telephone Encounter - Kelly Sevilla RN - 01/19/2023 1:49 PM EDT ----- Message from Juancho Aldridge MD sent at 01/19/2023 1:25 PM EDT ----- Please inform the patient that his PSA is up. Most likely his prostate cancer is now hormone resistant. If in agreement I would like to refer to Dr. Esparza to evaluate for Xofigo. If not a candidate we will need to consider IV chemotherapy with docetaxel. documented in this encounterLakehealth Beachwood Medical Center08-29-2023 NoteHNO ID: [id number] Author: Helen Abreu RN Service: ? Author Type: Registered Nurse Type: Progress Notes Filed: 01/18/2023 2:30 PM Note Text: [id number] Karin Mart [id number] Lady Of Mercy Hospital 01-18-2023 History of Present illness Narrative* Helen Abreu RN - 01/18/2023 2:27 PM EDT [id number] Karin Mart [id number] documented in this encounterLake[facility]-29-2023 NoteOur [facility]29-[facility] History of Present illness Narrative* Juancho Aldridge MD - 01/18/2023 7:34 AM EDT PATIENT NAME: Karin Mart DATE: 01/18/2023 PRIMARY CARE PHYSICIAN: Dr. Nina Smith OTHER PHYSICIANS: Dr. Muller Portions of this encounter note have been copied from the note from 2022 and has been updated where appropriate, and reflect my current medical decision making from today. CC: This is an 82 year old male with metastatic prostate cancer, seen for scheduled follow-up. INTERIM HISTORY: Since the patient's last visit here he has remained on abiraterone 1000 mg daily plus prednisone 10 mg daily. He appears to be tolerating the medications well. His only new complainttoday is increasing fatigue. He also has mild joint pain, particularly in his knees. He currently ta kes Aleve twice daily for the pain with moderate relief. No difficulties with urination. Appetite stable and no weight loss. Despite his current symptoms heremains very active and works throughout the day. MEDICATIONS: Current Outpatient Medications Medication Sig naproxen sodium (ALEVE ORAL) Take by mouth. abiraterone 250 mg tablet Take 4 tablets by mouth once daily. predniSONE (DELTASONE) 10 mg tablet Take 1 tablet by mouth once daily. tamsulosin (FLOMAX) 0.4 mg Take by mouth twice daily. CALCIUM-VITAMIN D3 ORAL Take 1 tablet by mouth once daily. No current facility-administered medications for this visit. ALLERGIES: ALLERGIES No Known Allergies PAST MEDICAL HISTORY: PAST MEDICAL HISTORY Diagnosis Date Prostate cancer (HCC) PAST SURGICAL HISTORY: PAST SURGICAL HISTORY Procedure Laterality Date COLONOSCOPY PROSTATE BIOPSY FAMILY HISTORY: FAMILY HISTORY Problem Relation Age of Onset Emphysema Father SOCIAL HISTORY: Social History Tobacco Use Smoking status: Former Packs/day: 1.00 Years: 5.00 Additional pack years: 0.00 Total pack years: 5.00 Types: Cigarettes Quit date: 1966 Years since quittin.6 Passive exposure: Past Smokeless tobacco: Never Vaping Use Vaping Use: Never used Substance Use Topics Alcohol use: Yes Comment: occ Drug use: Never REVIEW OF SYSTEMS: General: No weight loss, malaise or fevers. HEENT: Negative for frequent or significant headaches. No changes in hearing or vision, no nose bleeds or other nasal problems. Respiratory: Negative for cough, wheezing or shortness of breath. Cardiovascular: Negative for chest pain, leg swelling or palpitations. GI: Negative for abdominal discomfort, blood in stools or black stools or change in bowel habits. : No history of dysuria, frequency or incontinence. Musculoskeletal: Negative for joint pain or swelling, back pain and muscle pain. Skin: Negative for lesions, rash and itching. Hematology/Lymphology: Negative for prolonged bleeding, bruising easily or swollen nodes. Neuro: No history of headaches, syncope, paralysis, seizures or tremors. PHYSICAL EXAM: BP (!) 109/49 Pulse 78 Temp 36.3 C (97.4 F) (Temporal) Resp 16 Ht 174 cm (5' 8.5 ) Wt 67.7 kg (149 lb 3.2 oz) SpO2 99% BMI 22.35 kg/m ECOG 1 General: Alert and oriented, no distress, pleasant and cooperative. Heart: Regular, normal S1 and S2, no murmurs, rubs, or gallops. Lungs: Clear to auscultation bilaterally. Abdomen: Benign. Extremities: Feet/ankles without edema, posterior tibial pulses full and symmetrical. PATHOLOGY: 12/02/2021 TRUS biopsy ([facility]) [place] score 4+5=9 in multiple cores LABS: Hemoglobin (g/dL) Date Value 01/18/2023 9.6 Hematocrit (%) Date Value 01/18/2023 31.0 WBC (k/uL) Date Value 01/18/2023 4.55 Platelet Count (k/uL) Date Value 01/18/2023 153 PSA 03/16/2021 10.3 11/24/2021 629.7 12/24/2021 792 02/04/2022 257 04/08/2022 320.0 07/05/2022 119.7 10/14/2022 313.7 11/03/2022 359.9 12/08/2022 323.6 01/18/2023 RADIOLOGY/OTHER STUDIES: 11/03/2022 PSMA PET scan IMPRESSION: HEAD/NECK: * No PSMA-expressing metastases. CHEST: * No PSMA-expressing metastases. ABDOMENS/PELVIS: * Abnormal diffuse tracer uptake in the prostate bilateral peripheral zones extending in the bilateral seminal vesicles compatible with PSMA expressing prostate cancer. * Previous pelvic lymphadenopathy on CT 11/24/2021 has resolved. A focus of tracer activity along the right aspect of the rectum which may be a small tracer avid perirectal node. No tracer lymphadenopathy otherwise. * Prostatomegaly and chronic circumferential bladder wall thickening, likely component of urinary outflow obstruction. BONES/EXTREMITIES: * Worsened widespread tracer avid sclerotic osseous metastases with Superscan appearance. 12/09/2021 Nuclear bone scan ([facility]) Diffuse and extensive abnormal foci throughout the bones including the spine, ribs, pelvis, calvarium, scapula, humerus, sternum and femurs. Consistent with diffuse and extensive bone metastases. 11/24/2021 CT Abd/Pelvis ([facility]) Unremarkable bowel. No acute findings. Wall thickening of the urinary bladder likely due to muscular hypertrophy. Numerous skeletal lesions and enlarged prostate suggest prostate cancer. 11/24/2021 chest x-ray ([facility]) Hyperexpanded lungs. No acute cardiopulmonary process. ASSESSMENT/PLAN: 1. Prostate cancer (HCC) - ICD9: 185, ICD10: C61 (primary diagnosis) Metastatic prostate cancer diagnosed November 2021. The patient presented with a markedly elevated PSA.Prostate biopsy 12/02/2021 confirmed adenocarcinoma, [place] 4+5=9. Bone scan obtained 12/09/2021 revealed extensive bone metastases. CT abdomen/pelvis and chest x-ray revealed no evidence of visceral metastases. 12/14/2021 the patient received Lupron 45 mg IM and has continued every 6 months since (given by Dr. Muller). Casodex 50 mg daily started November 2021. The patient's PSA initially dropped, butincreased by March 2022. March 2022 Casodex was discontinued and second line antiandrogen therapy with enzalutamide started. On second line hormonal therapy the patient's PSA initially dropped,but increased by September 2022. PSMA PET scan 11/03/2022 revealed significant progressive disease in bones. Subsequently it was elected to change treatment to third line hormonal therapy with abiraterone/prednisone starting 11/06/2022. The patient's PSA has since stabilized. Currently he has joint pain and fatigue, otherwise is clinically stable. For now the patient will continue as planned with abiraterone/prednisone. If his PSA improves but fatigue worsens (suggesting adverse effects of abiraterone), would consider decreasing the abiraterone dose to 250 mg daily (with a low-fat meal). If his PSA continues to worsen would need to consider changing treatment to chemotherapy with docetaxel. The patient may also be a candidate for Xofigo. The patient also will continue with Lupron every [address] Muller, next injection due April 2023. I will see the patient back in 6 weeks for follow-up. 2. Bone metastases (HCC) - ICD9: 198.5, ICD10: C79.51 Extensive bone metastases on baseline bone scan 12/09/2021. Xgeva started 01/07/2022, with plans to give every 3 months. Next injection due today. Juancho Aldridge MD CC: Dr. Muller, [facility] urology documented in this encounterLake[facility]08-01-2023 NoteOur [facility]08-01-2023 History of Present illness Narrative* Brinda Delatorre APRN.PLASTER MACHINE TENDER - 2022 11:29 AM EDT PATIENT NAME: Karin Mart DATE: 2022 PRIMARY CARE PHYSICIAN: Dr. Nina Smith OTHER PHYSICIANS: Dr. Muller Portions of this encounter note have been copied from Juancho Aldridge MD note from 11/15/2022 and has been updated where appropriate, and reflect my current medical decision making from today. CC: This is an 82 year old male with metastatic prostate cancer, seen for scheduled follow-up. INTERIM HISTORY: Karin Mart returns for follow-up. He remains on abiraterone 1000 mg daily and Prednisone 10 mg daily and is tolerating it well. He denies any side effects from the abiraterone. Since his last visit he called the on-call doctor who was Dr. Aldridge with complaints that he couldnot get out of bed and he could not tie his shoes. He started Aleve which helped with his symptoms.He is now taking Aleve in the morning and night. He is urinating okay. He denies pain, burning and difficulty with urination. He states that he is up and down a couple times during the night. He denies fevers, chills, night sweats and signs/symptoms of infection. He bruises easily. He had an accidental fall and sustained a skin tear to his left forearm. Overall, he is doing well today. MEDICATIONS: Current Outpatient Medications Medication Sig abiraterone 250 mg tablet Take 4 tablets by mouth once daily. predniSONE (DELTASONE) 10 mg tablet Take 1 tablet by mouth once daily. tamsulosin (FLOMAX) 0.4 mg Take by mouth twice daily. CALCIUM-VITAMIN D3 ORAL Take 1 tablet by mouth once daily. enzalutamide (XTANDI) 80 mg tablet Take 160 mg by mouth once daily. No current facility-administered medications for this visit. ALLERGIES: ALLERGIES No Known Allergies PAST MEDICAL HISTORY: PAST MEDICAL HISTORY Diagnosis Date Prostate cancer (HCC) PAST SURGICAL HISTORY: PAST SURGICAL HISTORY Procedure Laterality Date COLONOSCOPY PROSTATE BIOPSY FAMILY HISTORY: FAMILY HISTORY Problem Relation Age of Onset Emphysema Father SOCIAL HISTORY: Social History Tobacco Use Smoking status: Former Packs/day: 1.00 Years: 5.00 Total pack years: 5.00 Types: Cigarettes Quit date: 1966 Years since quittin.6 Passive exposure: Past Smokeless tobacco: Never Vaping Use Vaping Use: Never used Substance Use Topics Alcohol use: Yes Comment: occ Drug use: Never REVIEW OF SYSTEMS: General: No weight loss, malaise or fevers. HEENT: Negative for frequent or significant headaches. No changes in hearing or vision, no nose bleeds or other nasal problems. Respiratory: Negative for cough, wheezing or shortness of breath. Cardiovascular: Negative for chest pain, leg swelling or palpitations. GI: Negative for abdominal discomfort, blood in stools or black stools or change in bowel habits. : No history of dysuria, frequency or incontinence. Musculoskeletal: Negative for joint pain or swelling, back pain and muscle pain. Skin: Negative for lesions, rash and itching. Hematology/Lymphology: Negative for prolonged bleeding, bruising easily or swollen nodes. Neuro: No history of headaches, syncope, paralysis, seizures or tremors. PHYSICAL EXAM: BP 98/75 Pulse 73 Temp 36.2 C (97.2 F) (Temporal) Resp 16 Ht 174 cm (5' 8.5 ) Wt 67.2 kg (148 lb 3.2 oz) SpO2 99% BMI 22.20 kg/m ECOG 1 General: Alert and oriented, no distress, pleasant and cooperative. Heart: Regular, normal S1 and S2, no murmurs, rubs, or gallops. Lungs: Clear to auscultation bilaterally. Abdomen: Benign. Extremities: Feet/ankles without edema, posterior tibial pulses full and symmetrical. PATHOLOGY: 12/02/2021 TRUS biopsy ([facility]) [place] score 4+5=9 in multiple cores LABS: Hemoglobin (g/dL) Date Value 2022 10.5 Hematocrit (%) Date Value 2022 33.6 WBC (k/uL) Date Value 2022 5.16 Platelet Count (k/uL) Date Value 2022 161 PSA 03/16/2021 10.3 11/24/2021 629.7 12/24/2021 792 02/04/2022 257 04/08/2022 320.0 07/05/2022 119.7 10/14/2022 313.7 11/03/2022 359.9 12/08/2022 323.60 RADIOLOGY/OTHER STUDIES: 11/03/2022 PSMA PET scan IMPRESSION: HEAD/NECK: * No PSMA-expressing metastases. CHEST: * No PSMA-expressing metastases. ABDOMENS/PELVIS: * Abnormal diffuse tracer uptake in the prostate bilateral peripheral zones extending in the bilateral seminal vesicles compatible with PSMA expressing prostate cancer. * Previous pelvic lymphadenopathy on CT 11/24/2021 has resolved. A focus of tracer activity along the right aspect of the rectum which may be a small tracer avid perirectal node. No tracer lymphadenopathy otherwise. * Prostatomegaly and chronic circumferential bladder wall thickening, likely component of urinary outflow obstruction. BONES/EXTREMITIES: * Worsened widespread tracer avid sclerotic osseous metastases with Superscan appearance. 12/09/2021 Nuclear bone scan ([facility]) Diffuse and extensive abnormal foci throughout the bones including the spine, ribs, pelvis, calvarium, scapula, humerus, sternum and femurs. Consistent with diffuse and extensive bone metastases. 11/24/2021 CT Abd/Pelvis ([facility]) Unremarkable bowel. No acute findings. Wall thickening of the urinary bladder likely due to muscular hypertrophy. Numerous skeletal lesions and enlarged prostate suggest prostate cancer. 11/24/2021 chest x-ray ([facility]) Hyperexpanded lungs. No acute cardiopulmonary process. ASSESSMENT/PLAN: 1. Prostate cancer (HCC) - ICD9: 185, ICD10: C61 (primary diagnosis) Metastatic prostate cancer diagnosed November 2021. The patient presented with a markedly elevated PSA.Prostate biopsy 12/02/2021 confirmed adenocarcinoma, [place] 4+5=9. Bone scan obtained 12/09/2021 revealed extensive bone metastases. CT abdomen/pelvis and chest x-ray revealed no evidence of visceral metastases. 12/14/2021 the patient received Lupron 45 mg IM and has continued every 6 months since (given by Dr. Muller). Casodex 50 mg daily started November 2021. The patient's PSA initially dropped, butincreased by March 2022. In March 2022 Casodex was discontinued and second line antiandrogen therapy with enzalutamide started. On second line hormonal therapy the patient's PSA initially dropped, but unfortunately increased as of September 2022. PSMA PET scan 11/03/2022 revealed significant progressive disease in bones. Subsequently it was elected to change treatment to third line hormonal therapy with abiraterone/prednisone starting 11/06/2022. Despite his advanced bony metastases the patient is minimally symptomatic at this time. The patient will continue as planned with abiraterone/prednisone, plus Lupron every [address] Muller. The patient will return in 1 month for follow-up, labs and Xgeva. If/when his disease progresses on hormonal therapy standard of care will be cytotoxic chemotherapy (docetaxel). 2. Bone metastases (HCC) - ICD9: 198.5, ICD10: C79.51 Extensive bone metastases on baseline bone scan 12/09/2021. Xgeva started 01/07/2022, with plans to give every 3 months. Next injection due end of December 2022. Brinda Delatorre APRN.PLASTER MACHINE TENDER CC: Dr. Muller, [facility] urology I spent a total of 30 minutes on the date of the service which included preparing to see the patient, [id number] patient care, completing clinical documentation, obtaining and/or reviewing separately obtained history, performing a medically appropriate examination, counseling and educating the pat ient/family/caregiver, ordering medications, tests, or procedures, independently interpreting results (not documented in this encounterLakehealth [facility] Center07-25-2023 Miscellaneous Notes* Telephone Encounter - Cristel Christopher - 12/14/2022 3:49 PM EDT Patient has an appt on 12/21. Would you like labs? documented in this encounterLakehealth [facility] Center07-11-2023 Miscellaneous Notes* Telephone Encounter - Roma Penn - 11/30/2022 12:44 PM EDT Added to schedule * Telephone Encounter - Kelly Sevilla RN - 11/30/2022 12:15 PM EDT Pt's spouse notified and verbalizes understanding. PATTI/Brinda: Lab orders pended. Clerical: Pt will be in on Tuesday, 12/08 @ 11 AM for labs. Please add him to the schedule. Kelly Sevilla RN * Telephone Encounter - Juancho Aldridge MD - 11/30/2022 12:03 PM EDT Okay to continue as is with abiraterone/prednisone. Tylenol, Aleve, or [place] for pain. Have patient check labs next week. If PSA still stable I will see him back as scheduled. * Telephone Encounter - Kelly Sevilla RN - 11/30/2022 8:47 AM EDT Pt reports that his pain improved w/ Aleve. Does not wish to hold the Abiraterone and Prednisone. Pt had his PSA on 11/19 was 373. Was 359 three weeks prior. What do you advise? Kelly Sevilla RN * Telephone Encounter - Juancho Aldridge MD - 11/29/2022 9:39 AM EDT Unlikely that his symptoms are from the medication. However, would be reasonable to hold abiraterone/prednisone just in case. My suspicion is progressive cancer is the cause of his pain. Would repeatlabs as soon as possible (CBC, CMP, PSA), the patient can then be seen for follow-up. If his PSA continues to increase I would recommend we proceed with chemotherapy. In the meantime he should take Tylenol +/- NSAID (ibuprofen or Naprosyn) and we can also prescribe a low-dose narcotics such as [place]. Matt, B * Telephone Encounter - Kelly Sevilla RN - 11/29/2022 8:07 AM EDT Pt c/o worsening fatigue and generalized pain in his muscles and bones. Has difficulty getting dressed and getting out of bed due to his symptoms. No relief w/ tylenol. States they spoke w/ you yesterday. Did not take the Aleve as recommended. Still taking Xtandi 2 tabs daily. What do you advise for his symptoms? Kelly Sevilla RN documented in this encounterLakehealth [facility] Center07-10-2023 Hospital Discharge instructions Patient Education 11/29/2022 14:01:31 Prostate Cancer Prostate Cancer The prostate is a small gland that produces fluid that makes up semen (seminal fluid). It is located below the bladder in men, in front of the rectum. Prostate cancer is the abnormal growth of cells in the prostate gland. What are the causes? The exact cause of this condition is not known. What increases the risk? You are more likely to develop this condition if: You are 65 years of age or older. You have a family history of prostate cancer. You have a family history of breast and ovarian cancer. You have genes that are passed from parent to child (inherited), such as BRCA1 and BRCA2. You have Nelson syndrome. men and men of descent are diagnosed with prostate cancer at higher rates than other men. The reasons for this are not well understood and are likely due to a combination of genetic and environmental factors. What are the signs or symptoms? Symptoms of this condition include: Problems with urination. This may include: ?A weak or interrupted flow of urine. ?Trouble starting or stopping urination. ?Trouble emptying the bladder all the way. ?The need to urinate more often, especially at night. Blood in urine or semen. Persistent pain or discomfort in the lower back, lower abdomen, or hips. Trouble getting an erection. Weakness or numbness in the legs or feet. How is this diagnosed? This condition can be diagnosed with: A digital rectal exam. For this exam, a health care provider inserts a gloved finger into the rectum to feel the prostate gland. A blood test called a prostate-specific antigen (PSA) test. A procedure in which a sample of tissue is taken from the prostate and checked under a microscope (prostate biopsy). An imaging test called transrectal ultrasonography. Once the condition is diagnosed, tests will be done to determine how far the cancer has spread. This is called staging the cancer. Staging may involve imaging tests, such as a bone scan, CT scan, PETscan, or MRI. Stages of prostate cancer The stages of prostate cancer are as follows: Stage 1 (I). At this stage, the cancer is found in the prostate only. The cancer is not visible on imaging tests, and it is usually found by accident, such as during prostate surgery. Stage 2 (II). At this stage, the cancer is more advanced than it is in stage 1, but the cancer has not spread outside the prostate. Stage 3 (III). At this stage, the cancer has spread beyond the outer layer of the prostate to nearby tissues. The cancer may be found in the seminal vesicles, which are near the bladder and the prostate. Stage 4 (IV). At this stage, the cancer has spread to other parts of the body, such as the lymph nodes, bones, bladder, rectum, liver, or lungs. Prostate cancer grading Prostate cancer is also graded according to how the cancer cells look under a microscope. This is called the [place] score and the total score can range from 6 10, indicating how likely it is that the cancer will spread (metastasize) to other parts of the body. The higher the score, the greater thelikelihood that the cancer will spread. [place] 6 or lower: This indicates that the cancer cells look similar to normal prostate cells (well differentiated). Gos[place] 7: This indicates that the cancer cells look somewhat similar to normal prostate cells (moderately differentiated). Gosia 8, 9, or 10: This indicates that the cancer cells look very different than normal prostate cells (poorly differentiated). How is this treated? Treatment for this condition depends on several factors, including the stage of the cancer, your age, personal preferences, and your overall health. Talk with your health care provider about treatment options that are recommended for you. Common treatments include: Observation for early stage prostate cancer (active surveillance). This involves having exams, blood tests, and in some cases, more biopsies. For some men, this is the only treatment needed. Surgery. Types of surgeries include: ?Open surgery (radical prostatectomy). In this surgery, a larger incision is made to remove the prostate. ?A laparoscopic radical prostatectomy. This is a surgery to remove the prostate and lymph nodes through several small incisions. It is often referred to as a minimally invasive surgery. ?A robotic radical prostatectomy. This is laparoscopic surgery to remove the prostate and lymph nodes with the help of robotic arms that are controlled by the surgeon. ?Cryoablation. This is surgery to freeze and destroy cancer cells. Radiation treatment. Types of radiation treatment include: ?External beam radiation. This type aims beams of radiation from outside the body at the prostate to destroy cancerous cells. ?Brachytherapy. This type uses radioactive needles, seeds, wires, or tubes that are implanted into the prostate gland. Like external beam radiation, brachytherapy destroys cancerous cells. An advantage is that this type of radiation limits the damage to surrounding tissue and has fewer side effects. Chemotherapy. This treatment kills cancer cells or stops them from multiplying. It kills both cancer cells and normal cells. Targeted therapy. This treatment uses medicines to kill cancer cells without damaging normal cells. Hormone treatment. This treatment involves taking medicines that act on testosterone, one of the male hormones, by: ?Stopping your body from producing testosterone. ?Blocking testosterone from reaching cancer cells. Follow these instructions at home: Lifestyle Do not use any products that contain nicotine or tobacco. These products include cigarettes, chewing tobacco, and vaping devices, such as e-cigarettes. If you need help quitting, ask your health careprovider. Eat a healthy diet. To do this: ?Eat foods that are high in fiber. These include beans, whole grains, and fresh fruits and vegetables. ?Limit foods that are high in fat and sugar. These include fried or sweet foods. Treatment for prostate cancer may affect sexual function. If you have a partner, continue to have intimate moments. This may include touching, holding, hugging, and caressing your partner. Get plenty of sleep. Consider joining a support group for men who have prostate cancer. Meeting with a support group mayhelp you learn to manage the stress of having cancer. General instructions Take [id number] and prescription medicines only as told by your health care provider. If you have to go to the hospital, notify your cancer specialist (oncologist). Keep all follow-up visits. This is important. Where to find more information [place] [employer]: www.cancer.org [place] [employer]: www.cancer.net [employer] Cancer [place]: www.cancer.gov Contact a health care provider if: You have new or increasing trouble urinating. You have new or increasing blood in your urine. You have new or increasing pain in your hips, back, or chest. Get help right away if: You have weakness or numbness in your legs. You cannot control urination or your bowel movements (incontinence). You have chills or a fever. Summary The prostate is a small gland that is involved in the production of semen. It is located below a man's bladder, in front of the rectum. Prostate cancer is the abnormal growth of cells in the prostate gland. Treatment for this condition depends on the stage of the cancer, your age, personal preferences, and your overall health. Talk with your health care provider about treatment options that are recommended for you. Consider joining a support group for men who have prostate cancer. Meeting with a support group mayhelp you learn to manage the stress of having cancer. This information is not intended to replace advice given to you by your health care provider. Make sure you discuss any questions you have with your health care provider. Document Revised: 08/05/2021 Document Reviewed: 08/05/2021 SOS Online Backup Patient Education 2022 Fancy. Follow Up Care 06/04/2022 10:40:05 With:RENZO MCGARRY, Isa Son, URL Address: [facility] [address], [place] [phone] When:Within 6 Month(s) [facility] [place] 06-26-2023 Miscellaneous Notes* Telephone Encounter - Roma Finney Sec - 11/15/2022 12:48 PM EDT Took patient off the lab schedule. * Telephone Encounter - Kelly Sevilla RN - 11/15/2022 12:35 PM EDT Pt notified and verbalizes understanding. Clerical: Please remove pt from today's lab schedule. Kelly Sevilla RN * Telephone Encounter - Juancho Aldridge MD - 11/15/2022 9:10 AM EDT No need to do labs if feeling ok * Telephone Encounter - Kelly Sevilla RN - 11/12/2022 1:40 PM EDT Pt scheduled for labs and RV on Tuesday afternoon. Notes that he had PSA and Testosterone drawn w/ his PET recently. Asks if additional lab work on Tuesday is necessary? Kelly Sevilla RN documented in this encounterLakehealth Beachwood [facility]06-26-2023 NoteOur [facility]06-26-2023 History of Present illness Narrative* Juancho Aldridge MD - 11/15/2022 8:25 AM EDT PATIENT NAME: Karin Mart DATE: 11/15/2022 PRIMARY CARE PHYSICIAN: Dr. Nina Smith OTHER PHYSICIANS: Dr. Muller Portions of this encounter note have been copied from my note from 10/19/2022 and has been updated where appropriate, and reflect my current medical decision making from today. CC: This is an 81 year old male with metastatic prostate cancer, seen for scheduled follow-up. INTERIM HISTORY: Since the patient's last visit here he underwent a PSMA PET scan which revealed significant progressive disease in the bones. It subsequently was elected to change treatment to the third line hormonal therapy with abiraterone/prednisone, which he started on 11/06/2022. He appears elizabeth tolerating the medications well. On follow-up today he feels relatively well. He does have mild lower back pain, but no other areas of significant pain. He has no urinary symptoms. MEDICATIONS: Current Outpatient Medications Medication Sig enzalutamide (XTANDI) 80 mg tablet Take 160 mg by mouth once daily. abiraterone 250 mg tablet Take 4 tablets by mouth once daily. predniSONE (DELTASONE) 10 mg tablet Take 1 tablet by mouth once daily. tamsulosin (FLOMAX) 0.4 mg Take by mouth twice daily. CALCIUM-VITAMIN D3 ORAL Take 1 tablet by mouth once daily. No current facility-administered medications for this visit. ALLERGIES: ALLERGIES No Known Allergies PAST MEDICAL HISTORY: PAST MEDICAL HISTORY Diagnosis Date Prostate cancer (HCC) PAST SURGICAL HISTORY: PAST SURGICAL HISTORY Procedure Laterality Date COLONOSCOPY PROSTATE BIOPSY FAMILY HISTORY: FAMILY HISTORY Problem Relation Age of Onset Emphysema Father SOCIAL HISTORY: Social History Tobacco Use Smoking status: Former Packs/day: 1.00 Years: 5.00 Pack years: 5.00 Types: Cigarettes Quit date: 1966 Years since quittin.5 Passive exposure: Past Smokeless tobacco: Never Vaping Use Vaping Use: Never used Substance Use Topics Alcohol use: Yes Comment: occ Drug use: Never COMPLETE REVIEW OF SYSTEMS: CONSTITUTION: Negative for pain, fatigue, weight loss, or appetite loss. EENT: Negative for mouth soreness, antibiotics use, epistaxis, visual problems, neck or facial swelling, fever/chills, bleeding gums, or hearing loss. CV: Negative for edema, calf swelling, palpitations, or chest pain. RESPIRATORY: Negative for cough, SOB, hemoptysis, or wheezing. GI: Negative for nausea/vomiting, heartburn, vomiting blood, dysphasia, diarrhea, blood in stool, constipation, early satiety, PICA, vegetarian, poor nutrition, abdominal fullness, or abdominal pain. NEUROLOGICAL: Negative for numbness/tingling, dizziness, gait disturbance, headache, speech disturbance, tremor, hemiparesis/sensory loss, or change in mental status. MUSCULOSKELETAL: Negative for joint pain, joint swelling, or proximal muscle weakness. SKIN: Negative for hair loss, bruising, nail changes, rash, itching, pallor, or jaundice. ENDO/URO: Negative for hot flashes, cold or heat intolerance, urinary frequency, urinary hesitancy,menorrhagia, or hematuria. PSYCH: Negative for anxiety, depression, or other. PHYSICAL EXAM: BP 123/52 Pulse 63 Temp 36.4 C (97.6 F) (Temporal) Resp 16 Ht 174 cm (5' 8.5 ) SpO2 96% BMI 22.35 kg/m General: Alert and oriented, no distress, pleasant and cooperative. Heart: Regular, normal S1 and S2, no murmurs, rubs, or gallops Lungs: Clear to auscultation bilaterally Abdomen: Benign Extremities: Feet/ankles without edema, posterior tibial pulses full and symmetrical PATHOLOGY: 12/02/2021 TRUS biopsy ([facility]) Gosia score 4+5=9 in multiple cores LABS: Hemoglobin (g/dL) Date Value 10/14/2022 12.9 Hematocrit (%) Date Value 10/14/2022 40.6 WBC (k/uL) Date Value 10/14/2022 4.24 Platelet Count (k/uL) Date Value 10/14/2022 235 PSA 03/16/2021 10.3 11/24/2021 629.7 12/24/2021 792 02/04/2022 257 04/08/2022 320.0 07/05/2022 119.7 10/14/2022 313.7 11/03/2022 359.9 RADIOLOGY/OTHER STUDIES: 11/03/2022 PSMA PET scan IMPRESSION: HEAD/NECK: * No PSMA-expressing metastases. CHEST: * No PSMA-expressing metastases. ABDOMENS/PELVIS: * Abnormal diffuse tracer uptake in the prostate bilateral peripheral zones extending in the bilateral seminal vesicles compatible with PSMA expressing prostate cancer. * Previous pelvic lymphadenopathy on CT 11/24/2021 has resolved. A focus of tracer activity along the right aspect of the rectum which may be a small tracer avid perirectal node. No tracer lymphadenopathy otherwise. * Prostatomegaly and chronic circumferential bladder wall thickening, likely component of urinary outflow obstruction. BONES/EXTREMITIES: * Worsened widespread tracer avid sclerotic osseous metastases with Superscan appearance. 12/09/2021 Nuclear bone scan ([facility]) Diffuse and extensive abnormal foci throughout the bones including the spine, ribs, pelvis, calvarium, scapula, humerus, sternum and femurs. Consistent with diffuse and extensive bone metastases. 11/24/2021 CT Abd/Pelvis ([facility]) Unremarkable bowel. No acute findings. Wall thickening of the urinary bladder likely due to muscular hypertrophy. Numerous skeletal lesions and enlarged prostate suggest prostate cancer. 11/24/2021 chest x-ray ([facility]) Hyperexpanded lungs. No acute cardiopulmonary process. ASSESSMENT/PLAN: 1. Prostate cancer (HCC) - ICD9: 185, ICD10: C61 (primary diagnosis) Metastatic prostate cancer diagnosed November 2021. The patient presented with a markedly elevated PSA.Prostate biopsy 12/02/2021 confirmed adenocarcinoma, Gosia 4+5=9. Bone scan obtained 12/09/2021 revealed extensive bone metastases. CT abdomen/pelvis and chest x-ray revealed no evidence of visceral metastases. 12/14/2021 the patient received Lupron 45 mg IM and has continued every 6 months since (given by Dr. Muller). Casodex 50 mg daily started November 2021. The patient's PSA initially dropped, butincreased by March 2022. In March 2022 Casodex was discontinued and second line antiandrogen therapy with enzalutamide started. On second line hormonal therapy the patient's PSA initially dropped, but unfortunately increased as of September 2022. PSMA PET scan 11/03/2022 revealed significant progressive disease in bones. Subsequently it was elected to change treatment to third line hormonal therapy with abiraterone/prednisone starting 11/06/2022. Despite his advanced bony metastases the patient is minimally symptomatic at this time. The patient will continue as planned with abiraterone/prednisone, plus Lupron every [address] Muller. The patient will return in 1 month for follow-up and labs. If/when his disease progresses on hormonal therapy standard of care will be cytotoxic chemotherapy (docetaxel). 2. Bone metastases (HCC) - ICD9: 198.5, ICD10: C79.51 Extensive bone metastases on baseline bone scan 12/09/2021. Xgeva started 01/07/2022, with plans to give every 3 months. Next injection due December 2022. Juancho Aldridge MD CC: Dr. Muller, [facility] urology documented in this encounterLakehealth Beachwood [facility] Center06-23-2023 Miscellaneous Notes* Telephone Encounter - Kelly Sevilla RN - 11/12/2022 1:24 PM EDT ORAL ANTI-CANCER AGENTS FOLLOW-UP PHONE CALL/VISIT Patient identified by name and date of . YES Patient is on cycle 1, week 1, day 7 of Abiraterone (Zytiga) and Prednisone for Prostate Cancer. SYMPTOM ASSESSMENT Headache: No Visual Changes: No Dizziness: No Do you have any periods of confusion? No Mood changes: No Mouth or throat pain: No Appetite: no changes in appetite, appetite good Taste changes: No Nausea: No Vomiting: No Heartburn: No. Weight gain/loss: No Episodes of palpitations/chest discomfort/pressure/pain No Shortness of breath: No Cough: No Diarrhea: yes, Occasional loose stool. Constipation: no Bladder/Urinary Changes: Up twice a night to urinate. Not new for pt. Denies any new symptoms. Pain: Occasional leg cramps at night. Reports that they resolve quickly when up standing. Fever: No Chills: No Cold sensitivity: No Numbness/weakness: No Edema: No Skin changes: No Itching: No Yellowing of skin or eyes: No Musculoskeletal/joint changes/issues No Bleeding issues: No - Reports that he bruises easily. Activity Level (0-100%): Notes increased fatigue, but relates this to increased activity t/o the day. Do you need to take naps? Yes as needed; Do you wake up feeling rested? Yes Pt verbalizes correct dose and frequency of the above medication. Does the patient need interventions or same day appointment:No ADDITIONAL FOLLOW UP: The next outreach call is due on: Advised pt to call w/ any questions or concerns and was scheduledNA The following lab tests are due: NA Verified patient is aware of next appointment in the cancer center: Yes. Verified patient verbalized how to correctly refill the oral agent prescription. Yes Does the patient have any financial difficulties affording this medication? No Patient verbalizes understanding of when to seek Medical Attention? YES Patient verbalizes understanding of after-hours and weekend phone number? YES Patient verbalized importance of medication compliance in taking the oral agent as prescribed. Patient instructed to call if unable to comply. Kelly Sevilla RN documented in this encounterLakehealth Beachwood [facility] Center06-16-2023 Miscellaneous Notes* Telephone Encounter - Kelly Sevilla RN - 11/05/2022 10:35 AM EDT Patient started/will start taking Abiraterone & Prednison on 11/06/22. Kelly Sevilla RN documented in this encounterLakehealth Beachwood Medical Center06-16-2023 Miscellaneous Notes* Telephone Encounter - Kelly Sevilla RN - 11/05/2022 10:34 AM EDT FYI: Pt has the Abiraterone/Prednisone on hand. Would like to try this before he considers chemotherapy. Will stop the Xtandi. Plans to start the Abiraterone/Prednisone tomorrow. Kelly Sevilla RN documented in this encounterLakehealth Beachwood [facility] Center06-14-2023 NoteOur [facility]06-14-2023 NoteOur [facility]06-06-2023 NoteOur [facility]06-06-2023 NoteOur [facility]06-06-2023 History of Present illness Narrative* Kelly Sevilla RN - 10/26/2022 3:24 PM EDT ORAL ANTI-CANCER AGENTS EDUCATION patient and spouse here today for oral medication education for Abiraterone (Zytiga) & Prednisone for Prostate Cancer. READINESS TO LEARN Cognitive Ability: Alert and oriented Motivation to Learn: Interested Family Support: High - Very involved in pt care Instruction Provided to: Patient and Spouse Patient learns best by: Multiple Methods Factors affecting learning: None Physical limitation affecting learning: None MOTTA ASSESSMENT: 1.) Verified that patient knows that the oral agents are for cancer and are taken by mouth. Yes 2.) Medication reconciliation completed during visit. Yes 3.) Patient is able to swallow pills. Yes 4.) Patient is able to read the drug label/information. Yes 5.) Patient is able to open the medication bottles and packages. Yes 6.) Has patient taken other pills for cancer? YES, please explain: Bicalutamide & Enzalutamide 7.) Is patient experiencing any symptoms that would affect their ability to keep down pills, for example nausea or vomiting? No 8.) Verified that patient understands prescription delivery, benefit investigation and refill process. Yes PATIENT EDUCATION: 1.) Verified that patient attended individualized instruction on chemotherapy taught by a pharmacist. and nurse. Yes 2.) Verified that patient received Chemotherapy Safety in the Home handout, ChemoCare Medication Information handout: Abiraterone & Prednisone, Specialty Pharmacy Information : [facility] [place], and Specialty Pharmacy phone numbers: Yes DRUG-SPECIFIC EDUCATION: 1.) Verified that patient knows the drug name. Yes 2.) Verified patient understands the dose and schedule of oral chemo agent: Abiraterone - with water, at least one hour before or two hours after a meal. Prednisone - w/ food.Yes 3.) Verified patient knows what to do if a medication dose is missed. Yes 4.) Verified patient understands where to store the drug. Yes 5.) Verified patient understands potential side effects and how to manage them. Yes Nausea , Headache, Fatigue, Peripheral Edema, Myalgia, Arthalgia, Hot Flashes, Hypercholesterolemia, Hyperglycemia,and Fluid Retention 6.)Verified that patient understands handling precautions of oral chemo agent. Yes 7.) Verified that patient understands when and whom to call with questions. Yes 8.) Verified that patient understands where and how to return drug. Yes Pt is aware that he is to wait and start this after PET scan on 11/03. EVALUATE: Patient was able to demonstrate an understanding of all the above education using the teach-back method. Yes Patient instructed to call us with any questions, concerns, and/or unresolved symptoms. Will continue to follow up with patient and provide reinforcement of teaching topics as needed. Total time spent with patient: 35 minutes Total time spent on encounter: 5 minutes Kelly Sevilla RN * Itzel Tyler, [facility] - 10/26/2022 3:24 PM EDT Images from the original note were not included. [facility] Department of Pharmacy Oncology Pharmacy Medication Education Patient Name: Karin Mart Primary Oncologist: Juancho Aldridge Diagnosis: prostate cancer Karin Mart is a 81 year old patient and spouse here today for medication education for PO Abiraterone (Zytiga). Drug Interactions: Clinically significant interactions with chemotherapy, immunosuppression, or other standard of caretreatment plan medications anticipated: No. There are no pertinent drug interactions identified. Patient was counseled accordingly. Allergies: Patient confirmed allergies documented in Epic are correct: Yes Was medication education provided?: Yes Medication Education: Administration and schedule: 4 tablets PO every day with food Potential side effects discussed: cardiac toxicity, electrolyte disturbances, fatigue, fluid retention, headache, hot flashes, myalgia PO chemo: Verified patient understands where to store the drug. Yes Verified that patient understands prescription delivery, benefit investigation and refill process. Yes Was medication reconciliation performed?: Yes Changes made to medication list? No Current Outpatient Medications Medication Sig enzalutamide (XTANDI) 80 mg tablet Take 160 mg by mouth once daily. abiraterone 250 mg tablet Take 4 tablets by mouth once daily. predniSONE (DELTASONE) 10 mg tablet Take 1 tablet by mouth once daily. tamsulosin (FLOMAX) 0.4 mg Take by mouth twice daily. CALCIUM-VITAMIN D3 ORAL Take 1 tablet by mouth once daily. No current facility-administered medications for this visit. - Hormonal Therapy education was provided by a pharmacist YES - Provided important phone numbers and contacts during and after hours. YES - Provided information on symptoms that require immediate assistance. YES - Provided Hormonal Therapy when to call handouts YES - Preventing infection. YES - Treatment schedule and confirmation of appointment times. YES - Available support groups. YES - The importance of contraception during the course of chemotherapy NA - Patient services information. YES Thank you for allowing us to participate in the care of this patient. I spent 15 time (15 minute increments) with the patient Mallorie Tyler RPh Pager: documented in this encounterLakehealth Beachwood [facility] Center06-06-2023 Miscellaneous Notes* Telephone Encounter - Roma Hathaway - 10/26/2022 11:06 AM EDT scheduled documented in this encounterLakehealth Beachwood [facility] Center06-06-2023 Miscellaneous Notes* Telephone Encounter - Jennifer Quan - 10/26/2022 9:52 AM EDT 10/26 Pt would like to schedule the appt at the [place] emergency department. Lexii Mcguiresent the request to [place]. * Telephone Encounter - Lexii Knowles RN - 10/20/2022 8:49 AM EDT Auth#:[id number] Date Range:10-20-22 to 12-04-22 for 1 dos Auth letter scanned into epic [id number]/PSMA- piflufolastat F [id number] [id number] NPI: JUANCHO ALDRIDGE [id number] Member ID :MMO Medicare Advantage [id number] INS Contact Number: [facility] Intake: on line Case/Ref#: [id number] Notes: submitted clinical online 10-21-22 case still pending review 10-22-22 case still pending review 10-26-22 PET/Ct Prostate approved Auth [id number] from 10-20-22 to 12-04-22 for 1 dos * Telephone Encounter - Lexii Knowles RN - 10/20/2022 8:38 AM EDT Authorization number: PSMA Authorization date range: PSMA Primary Insurance: MMO Medicare Advantage [id number] Diagnosis: Prostate cancer (HCC) [C61] DX Imaging: CT/CTA: 12-14-[address] and Bone Scan: 12-14-21 OS Pathology: 12/02/2021 confirmed adenocarcinoma, [place] 4+5=9. Labs: 10-14-22 PSA 313.70 07-05-22 PSA 119.70 04-08-22 PSA 320.00 02-04-22 PSA 257.30 12-24-21 PSA 792.60 Clinical Notes Reviewed: 10-19-22 Hem Onc Date of last: Lupron every 6 months, Casodex 12-14-21 to enzalutamide started , Xgeva started 01/07/2022, with plans to give every 3 months. Additional Information: N/A Radiologist Reviewed: N/A Initial/Subsequent: Subsequent Treatment Strategy: 92 PET Protocol: PSMA Diagnostic Imaging Requested: No Is this a Pretreatment and/or an initial Pet scan: No - Schedule as requested Comments for Weight Count Operator: N/A ROUTE TO SCHEDULERS POOL P PET AFRICAN HISTORY PROFESSOR MC or P NM SPECIAL STUDIES [facility] * Telephone Encounter - Christine Guerrero - 10/19/2022 4:25 PM EDT This form is used for MAIN CAMPUS APPOINTMENTS ONLY. Is this request for a Main [place] PET scan appointment? Yes: Showroom Consultant: Christine Guerrero Requesting Person (Last Name, First Name): Christine Guerrero Area Code + Phone/Pager: [phone] Who do we call to schedule this appointment? Please route to Kelly Guerrero for scheduling Requesting Staff Juancho Aldridge Area Code + Phone/Pager: [phone] PET Orders (A delay in scheduling will result if the orders are not present at time of review): Internal ADDITIONAL ACTION MAY BE REQUIRED IF PATIENTS OON INSURANCE OR SELF PAY COVERAGE HAS NOT BEEN CLEARED FOR REQUESTED APPOINTMENT. Scheduling: [place]: As soon as insurance will allow What account will this PET appointment be linked to? P/F Type of PET: PSMA PROSTATE Are there additional diagnostic CT scans required to be done at time of PET scan? No Is the request for a PET MR ? No What account will diagnostic testing appointment be linked to? P/F Will the patient need anesthesia? NO Send requests to P COORD REVIEW documented in this encounterLakehealth Beachwood Medical Center05-30-2023 Miscellaneous Notes* Telephone Encounter - Poppy Friend RPh - 10/19/2022 5:40 PM EDT Ambulatory Pharmacy Prior Authorization Note Provider Intervention Required?: No- Pharmacy completed on your behalf. Rx Plan: [facility] Drug: Abiraterone Cover My Meds Motat: [id number] Determination: Approved Prior Authorization/Case #: [id number] Prior Authorization Expiration: 10/18/2025 Time to PA Submission in CMM: 15 min Time to PA Determination in CMM: Same day Additional Information: copay $2584.50 Will review with patient and see what the cost is with a discount card. For questions relating to this submission, please contact [facility] at [phone] documented in this encounterLakehealth Beachwood Medical Center05-30-2023 NoteOur [facility] Of Mer[facility]05-30-2023 History of Present illness Narrative* Juancho Aldridge MD - 10/19/2022 7:19 AM EDT PATIENT NAME: Karin Mart DATE: 10/19/2022 PRIMARY CARE PHYSICIAN: Dr. Nina Smith OTHER PHYSICIANS: Dr. Muller Portions of this encounter note have been copied from my note from 07/08/2022 and has been updated where appropriate, and reflect my current medical decision making from today. CC: This is an 81 year old male with metastatic prostate cancer, seen for scheduled follow-up. INTERIM HISTORY: Since the patient's last visit here he has remained on treatment with Lupron every6 months plus enzalutamide 160 mg daily. He is tolerating treatment well. He has had no significant medical changes since his last visit. On follow-up today his only complaint is occasional pain over his right lower back/right sacroiliac area. The pain is not severe. No other areas of bone pain. Unfortunately, recent labs indicated significant increase of his PSA. MEDICATIONS: Current Outpatient Medications Medication Sig enzalutamide (XTANDI) 80 mg tablet Take 2 tablets (160 mg) by mouth once daily. bicalutamide (CASODEX) 50 mg tablet Take 50 mg by mouth. (Patient not taking: Reported on 07/08/2022) tamsulosin (FLOMAX) 0.4 mg Take by mouth twice daily. CALCIUM-VITAMIN D3 ORAL Take 1 tablet by mouth once daily. No current facility-administered medications for this visit. ALLERGIES: ALLERGIES No Known Allergies PAST MEDICAL HISTORY: PAST MEDICAL HISTORY Diagnosis Date Prostate cancer (HCC) PAST SURGICAL HISTORY: PAST SURGICAL HISTORY Procedure Laterality Date COLONOSCOPY PROSTATE BIOPSY FAMILY HISTORY: FAMILY HISTORY Problem Relation Age of Onset Emphysema Father SOCIAL HISTORY: Social History Tobacco Use Smoking status: Former Packs/day: 1.00 Years: 5.00 Pack years: 5.00 Types: Cigarettes Quit date: 1966 Years since quittin.4 Passive exposure: Past Smokeless tobacco: Never Vaping Use Vaping Use: Never used Substance Use Topics Alcohol use: Yes Comment: occ Drug use: Never COMPLETE REVIEW OF SYSTEMS: CONSTITUTION: Negative for pain, fatigue, weight loss, or appetite loss. EENT: Negative for mouth soreness, antibiotics use, epistaxis, visual problems, neck or facial swelling, fever/chills, bleeding gums, or hearing loss. CV: Negative for edema, calf swelling, palpitations, or chest pain. RESPIRATORY: Negative for cough, SOB, hemoptysis, or wheezing. GI: Negative for nausea/vomiting, heartburn, vomiting blood, dysphasia, diarrhea, blood in stool, constipation, early satiety, PICA, vegetarian, poor nutrition, abdominal fullness, or abdominal pain. NEUROLOGICAL: Negative for numbness/tingling, dizziness, gait disturbance, headache, speech disturbance, tremor, hemiparesis/sensory loss, or change in mental status. MUSCULOSKELETAL: Negative for joint pain, joint swelling, or proximal muscle weakness. SKIN: Negative for hair loss, bruising, nail changes, rash, itching, pallor, or jaundice. ENDO/URO: Negative for hot flashes, cold or heat intolerance, urinary frequency, urinary hesitancy,menorrhagia, or hematuria. PSYCH: Negative for anxiety, depression, or other. PHYSICAL EXAM: BP 130/51 Pulse 69 Temp 37 C (98.6 F) (Temporal) Resp 18 Ht 174 cm (5' 8.5 ) Wt 67.7 kg (149 lb 3.2 oz) SpO2 99% BMI 22.35 kg/m General: Alert and oriented, no distress, pleasant and cooperative. Heart: Regular, normal S1 and S2, no murmurs, rubs, or gallops Lungs: Clear to auscultation bilaterally Abdomen: Benign Extremities: Feet/ankles without edema, posterior tibial pulses full and symmetrical PATHOLOGY: 12/02/2021 TRUS biopsy ([facility]) Gosia score 4+5=9 in multiple cores LABS: Hemoglobin (g/dL) Date Value 10/14/2022 12.9 Hematocrit (%) Date Value 10/14/2022 40.6 WBC (k/uL) Date Value 10/14/2022 4.24 Platelet Count (k/uL) Date Value 10/14/2022 235 PSA 03/16/2021 10.3 11/24/2021 629.7 12/24/2021 792 02/04/2022 257 04/08/2022 320.0 07/05/2022 119.7 10/14/2022 313.7 RADIOLOGY/OTHER STUDIES: 12/09/2021 Nuclear bone scan ([facility]) Diffuse and extensive abnormal foci throughout the bones including the spine, ribs, pelvis, calvarium, scapula, humerus, sternum and femurs. Consistent with diffuse and extensive bone metastases. 11/24/2021 CT Abd/Pelvis ([facility]) Unremarkable bowel. No acute findings. Wall thickening of the urinary bladder likely due to muscular hypertrophy. Numerous skeletal lesions and enlarged prostate suggest prostate cancer. 11/24/2021 chest x-ray ([facility]) Hyperexpanded lungs. No acute cardiopulmonary process. ASSESSMENT/PLAN: 1. Prostate cancer (HCC) - ICD9: 185, ICD10: C61 (primary diagnosis) Metastatic prostate cancer diagnosed November 2021. The patient presented with a markedly elevated PSA.Prostate biopsy 12/02/2021 confirmed adenocarcinoma, [place] 4+5=9. Bone scan obtained 12/09/2021 revealed extensive bone metastases. CT abdomen/pelvis and chest x-ray revealed no evidence of visceral metastases. 12/14/2021 the patient received Lupron 45 mg IM and has continued every 6 months since (given by Dr. Muller). Casodex 50 mg daily started November 2021. The patient's PSA initially dropped, butincreased by March 2022. In March 2022 Casodex was discontinued and second line antiandrogen therapy with enzalutamide started. On second line hormonal therapy the patient's PSA initially dropped, but unfortunately increased as of September 2022. Options for management were discussed at length with the patient and his . We will repeat his PSA and check a testosterone level in the next week or so. In the meantime he will continue as is with Lupron, next injection scheduled in October per Dr. Muller. For now he also will remain on enzalutamide. We will further evaluate with a prostate specific PET scan. If progressive disease is confirmed will change treatment to third line hormonal therapy with abiraterone/prednisone, or will consider chemotherapy with docetaxel if significant progression. The patient will return in 3 weeks for follow-up. 2. Bone metastases (HCC) - ICD9: 198.5, ICD10: C79.51 Extensive bone metastases on baseline bone scan 12/09/2021. Xgeva started 01/07/2022, with plans to give every 3 months. He will receive an injection today. Juancho Aldridge MD CC: Dr. Muller, [facility] urology documented in this encounterLake[facility]05-15-2023 Miscellaneous Notes* Telephone Encounter - Kelly Sevilla RN - 10/04/2022 1:01 PM EDT Pt notified and verbalizes understanding. Kelly Sevilla RN * Telephone Encounter - Kelly Sevilla RN - 10/04/2022 12:50 PM EDT Pt is already scheduled for labs on 10/14. Call placed to pt. No answer. Message left requesting call back. Kelly Sevilla RN * Telephone Encounter - Juancho Aldridge MD - 10/04/2022 12:01 PM EDT An MRI of the affected area is reasonable, but probably should be seen before ordering that. Would like to see his PSA before we order additional testing (bone scan). * Telephone Encounter - Kelly Sevilla RN - 10/04/2022 10:21 AM EDT Pt c/o new pain to his lower right back. States that it is just above his right hip. Began about one month ago. Denies any known injury or strain. Reports that the pain is most noticeable at night when laying down. Pt has h/o of bone mets and voices concerns that it could be his disease. Pt and spouse are flying back to [place] from [place] today. Has f/u w/ you on 10/19. Would you like anything done before that appointment? Kelly Sevilla RN documented in this encounterLakehealth [facility]04-17-2023 Miscellaneous Notes* Telephone Encounter - Lazaro August - 03/08/2023 11:51 AM EDT Do you want labs? Patient coming in for treatment on 03/17/23. Thea Willis MA documented in this encounterLakehealth [facility]02-16-2023 History of Present illness Narrative* Divya Bar RN - 07/08/2022 3:10 PM EST Pharmacy calling to clarify order for xgeva d/t calcium level of 7.8. Dr Aldridge aware of calcium and confirmed order for xgeva. Pharmacy made aware and xgeva released. documented in this encounterLakehealth [facility] Center02-16-2023 History of Present illness Narrative* Juancho Aldridge MD - 07/08/2022 7:58 AM EST PATIENT NAME: Karin Mart DATE: 07/08/2022 PRIMARY CARE PHYSICIAN: Dr. Nina Smith OTHER PHYSICIANS: Dr. Muller Portions of this encounter note have been copied from my note from 04/08/2022 and has been updated where appropriate, and reflect my current medical decision making from today. CC: This is an 81 year old male with metastatic prostate cancer, seen for scheduled follow-up. INTERIM HISTORY: At the patient's last visit here in March 2022 labs revealed persistent elevation of the PSA. Casodex was discontinued, and second line antiandrogen therapy with enzalutamide started. The patient appears to be tolerating the enzalutamide well. He also remains on Lupron every [address] Muller, last given May 2022. Currently the patient feels quite well. He denies any bone pain or other systemic complaints. No troubles with urination. MEDICATIONS: Current Outpatient Medications Medication Sig enzalutamide (XTANDI) 80 mg tablet Take 2 tablets (160 mg) by mouth once daily. bicalutamide (CASODEX) 50 mg tablet Take 50 mg by mouth. tamsulosin (FLOMAX) 0.4 mg Take by mouth twice daily. CALCIUM-VITAMIN D3 ORAL Take 1 tablet by mouth once daily. No current facility-administered medications for this visit. ALLERGIES: ALLERGIES No Known Allergies PAST MEDICAL HISTORY: PAST MEDICAL HISTORY Diagnosis Date Prostate cancer (HCC) PAST SURGICAL HISTORY: PAST SURGICAL HISTORY Procedure Laterality Date COLONOSCOPY PROSTATE BIOPSY FAMILY HISTORY: FAMILY HISTORY Problem Relation Age of Onset Emphysema Father SOCIAL HISTORY: Social History Tobacco Use Smoking status: Former Packs/day: 1.00 Years: 5.00 Pack years: 5.00 Types: Cigarettes Quit date: 1966 Years since quittin.1 Passive exposure: Past Smokeless tobacco: Never Vaping Use Vaping Use: Never used Substance Use Topics Alcohol use: Yes Comment: occ Drug use: Never COMPLETE REVIEW OF SYSTEMS: CONSTITUTION: Negative for pain, fatigue, weight loss, or appetite loss. EENT: Negative for mouth soreness, antibiotics use, epistaxis, visual problems, neck or facial swelling, fever/chills, bleeding gums, or hearing loss. CV: Negative for edema, calf swelling, palpitations, or chest pain. RESPIRATORY: Negative for cough, SOB, hemoptysis, or wheezing. GI: Negative for nausea/vomiting, heartburn, vomiting blood, dysphasia, diarrhea, blood in stool, constipation, early satiety, PICA, vegetarian, poor nutrition, abdominal fullness, or abdominal pain. NEUROLOGICAL: Negative for numbness/tingling, dizziness, gait disturbance, headache, speech disturbance, tremor, hemiparesis/sensory loss, or change in mental status. MUSCULOSKELETAL: Negative for joint pain, joint swelling, or proximal muscle weakness. SKIN: Negative for hair loss, bruising, nail changes, rash, itching, pallor, or jaundice. ENDO/URO: Negative for hot flashes, cold or heat intolerance, urinary frequency, urinary hesitancy,menorrhagia, or hematuria. PSYCH: Negative for anxiety, depression, or other. PHYSICAL EXAM: BP (!) 130/48 Pulse 76 Temp 36.5 C (97.7 F) (Temporal) Resp 16 Ht 174 cm (5' 8.5 ) Wt 68.4 kg (150 lb 12.8 oz) SpO2 98% BMI 22.59 kg/m General: Alert and oriented, no distress, pleasant and cooperative. Heart: Regular, normal S1 and S2, no murmurs, rubs, or gallops Lungs: Clear to auscultation bilaterally Abdomen: Benign Extremities: Feet/ankles without edema, posterior tibial pulses full and symmetrical PATHOLOGY: 12/02/2021 TRUS biopsy ([facility]) Gosia score 4+5=9 in multiple cores LABS: Hemoglobin (g/dL) Date Value 07/05/2022 12.6 Hematocrit (%) Date Value 07/05/2022 39.0 WBC (k/uL) Date Value 07/05/2022 3.57 Platelet Count (k/uL) Date Value 07/05/2022 185 PSA 03/16/2021 10.3 11/24/2021 629.7 12/24/2021 792 02/04/2022 257 04/08/2022 320.0 07/05/2022 119.7 RADIOLOGY/OTHER STUDIES: 12/09/2021 Nuclear bone scan ([facility]) Diffuse and extensive abnormal foci throughout the bones including the spine, ribs, pelvis, calvarium, scapula, humerus, sternum and femurs. Consistent with diffuse and extensive bone metastases. 11/24/2021 CT Abd/Pelvis ([facility]) Unremarkable bowel. No acute findings. Wall thickening of the urinary bladder likely due to muscular hypertrophy. Numerous skeletal lesions and enlarged prostate suggest prostate cancer. 11/24/2021 chest x-ray ([facility]) Hyperexpanded lungs. No acute cardiopulmonary process. ASSESSMENT/PLAN: 1. Prostate cancer (HCC) - ICD9: 185, ICD10: C61 (primary diagnosis) Metastatic prostate cancer diagnosed November 2021. The patient presented with a markedly elevated PSA.Prostate biopsy 12/02/2021 confirmed adenocarcinoma, Gosia 4+5=9. Bone scan obtained 12/09/2021 revealed extensive bone metastases. CT abdomen/pelvis and chest x-ray revealed no evidence of visceral metastases. 12/14/2021 the patient received Lupron 45 mg IM and has continued every 6 months since. Casodex 50 mg daily also started November 2021. PSA initially dropped, but increased by March 2022. InNov2021 Casodex was discontinued and second line antiandrogen therapy with enzalutamide started. Currently the patient is clinically stable and PSA has dropped significantly. At this time the patient will continue as planned with Lupron every [address] Muller, and insulin 160 mg daily. I will see him back in 3 months for follow-up and labs. 2. Bone metastases (HCC) - ICD9: 198.5, ICD10: C79.51 Extensive bone metastases on baseline bone scan 12/09/2021. Xgeva started 01/07/2022, with plans to give every 3 months. He will receive his Xgeva today. Juancho Aldridge MD CC: Dr. Muller, [facility] urology documented in this encounterLakehealth [facility]02-14-2023 Miscellaneous Notes* Telephone Encounter - Itzel Tyler RPh - 07/06/2022 11:43 AM EST Patient receives free drug from [facility]. Merlin Tyler rPh * Telephone Encounter - Juancho Aldridge MD - 07/05/2022 4:52 PM ESTMessage from MyChart: Barbara De La Cruz RN [facility] Jul 05, 2022 4:00 PM ----- Message ----- From: Karin Mart Sent: 07/05/2022 3:56 PM EST To: [facility] Renew Rx Subject: Medication Renewal Request Refills have been requested for the following medications: enzalutamide (XTANDI) 80 mg tablet [Dr. Anusha Aldridge] Preferred pharmacy: [id number] [place] [address] - [address] [phone] [place] [address] Delivery method: Pickup documented in this encounterLakehealth [facility]01-27-2023 History of Present illness Narrative* Lashell Esparza MD - 06/18/2022 12:58 PM EST Radiation Oncology - Prostate Cancer New Patient/Consult Note PATIENT NAME: Karin Mart PATIENT REQUESTING PROVIDER: Dr. Muller Other physicians: Dr. Aldridge, Dr. Smith DIAGNOSIS: 81 year old male with locally advanced and metastatic prostate adenocarcinoma, initial PSA 792, biopsy Gosia score 4 + 5 = 9 (grade group 5) HPI: 81 year old male with prostate adenocarcinoma who presents for an opinion regarding the role of radiation therapy in the management of the patient's disease. Final recommendations will be communicated back to the requesting physician by way of the shared medical record, or letter to requestingphysician via US mail. Patient presented after work-up for weight loss over 6 months after patient had had a COVID infection. He was found to have multiple sclerotic bony lesions on scan. He underwent PSA evaluations showing marked elevation. Further work-up including prostate biopsy on 12/02/2021 demonstrated a Gosia 9 (4+5) adenocarcinoma. He underwent radiographic work-up including bone scan and CT abdomen and pelvis. Multiple skeletal metastasis seen both on CT scan and bone scan. Enlarged prostate seen. No evidence of adenopathy or visceral metastasis. Patient was started on ADT including Casodex and Lupron. Patient had initial PSA response however only partial. PSA nadired after ADT in January at 257, however by April had increased. Patient was started on enzalutamide although patient did not start this to the last week of April. Most recent PSA on 05/26/2022 381.92. Patient otherwise states he is doing well. Appetite has improved compared to last year. No further weight loss. Denies any areas of skeletal pain or discomfort. Stays fairly active. Denies significant urinary complaints including obstructive symptoms dysuria orhematuria. PSA history: PSA (ng/mL) Date Value 04/08/2022 320.00 02/04/2022 257.30 12/24/2021 792.60 Prior Radiation Therapy, Collagen Vascular Disease, or Inflammatory Bowel Disease: No Currently on Anticoagulation: No History of Hip Replacement: No History of Prior TURP: No ALLERGIES No Known Allergies enzalutamide (XTANDI) 80 mg tablet Take 2 tablets (160 mg) by mouth once daily. bicalutamide (CASODEX) 50 mg tablet Take 50 mg by mouth. tamsulosin (FLOMAX) 0.4 mg Take by mouth twice daily. CALCIUM-VITAMIN D3 ORAL Take 1 tablet by mouth once daily. PAST MEDICAL HISTORY Diagnosis Date Prostate cancer (HCC) PAST SURGICAL HISTORY Procedure Laterality Date COLONOSCOPY PROSTATE BIOPSY FAMILY HISTORY Problem Relation Age of Onset Emphysema Father Social History Tobacco Use Smoking status: Former Packs/day: 1.00 Years: 5.00 Pack years: 5.00 Types: Cigarettes Quit date: 1966 Years since quittin.1 Passive exposure: Past Smokeless tobacco: Never Vaping Use Vaping Use: Never used Substance Use Topics Alcohol use: Yes Comment: occ Drug use: Never REVIEW OF SYSTEMS: NECK: denies swelling or pain in neck RESPIRATORY: no cough, no wheezing or shortness of breath CARDIOVASCULAR: no chest pain, no palpitations GI: normal appetite, tolerating PO well, BMs normal, and no abdominal pain : urination is normal MUSCULOSKELETAL: denies any painful or swollen joints, no muscle aches NEURO: no numbness or paresthesias and no weakness of the extremities As noted in HPI PHYSICAL EXAM: VS: BP 151/71 Pulse 85 Temp 36.8 C (98.2 F) Resp 16 Wt 68 kg (150 lb) SpO2 98% BMI 22.47 kg/m KARNOFSKY PERFORMANCE STATUS: 100 General Appearance: Alert and oriented. No acute distress. HEENT: NCAT. Sclera anicteric. PERRL. EOMI. Neck: Normal ROM. No palpable cervical or supraclavicular adenopathy. Chest: No respiratory distress. Lungs clear to auscultation bilaterally. Heart: Regular rate and rhythm. Abdomen: Soft. Nontender. Nondistended. Musculoskeletal: No edema. Normal ROM in extremities. No bone or spine tenderness. Neuro: Speech fluent. Gait normal. No focal deficits. Skin: No rashes noted Lymphatics: No palpable lymphadenopathy. GENITOURINARY: Deferred exam RECTAL: Deferred exam RADIOLOGY/LABORATORY DATA: see HPI ASSESSMENT/PLAN: Locally advanced and metastatic prostate adenocarcinoma, initial PSA 792, biopsy [place] score 4 + 5 = 9 (grade group 5) Despite very elevated PSA and widespread skeletal metastasis patient clinically is doing fairly well. 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 He is just recently started Xtandi. Fortunately no significant for local complaints. Should he have focal area of skeletal concern for development of obstructive bladder symptoms and/or hematuria consideration for local treatment would be important. In addition given no visceral metastasis patient may be a candidate for consideration radium-223, certainly depend on his current systemic hormonal treatment and hopefully he will respond to recently added second line antiandrogen's. He has continued follow-up with Dr. Muller well Dr. Aldridge. I will plan to see patient back in 3 months for follow-up. Signed by: Lashell Esparza MD cc: Nina Smith [address] [place] [address] Isa Muller [id number] [id number] documented in this encounterLakehealth [facility]01-16-2023 Miscellaneous Notes* Telephone Encounter - Kelly Sevilla RN - 06/07/2022 2:52 PM EST Pt calls w/ questions regarding how to refill his Xtandi. Informed pt that he will need to contact the mail order pharmacy to schedule delivery. Pt verbalizes understanding and confirms that he has their phone number. Advised he call back if he has any issues. Pt verbalizes understanding. Kelly Sevilla RN documented in this encounterLakehealth [facility] Center01-13-2023 Hospital Discharge instructions Patient Education 06/04/2022 10:34:10 Prostate Cancer Prostate Cancer The prostate is a walnut-sized gland that is involved in the production of semen. It is located below a man's bladder, in front of the rectum. Prostate cancer is the abnormal growth of cells in the prostate gland. What are the causes? The exact cause of this condition is not known. What increases the risk? This condition is more likely to develop in men who: Are older than age 65. Are -N[place]. Are obese. Have a family history of prostate cancer. Have a family history of breast cancer. What are the signs or symptoms? Symptoms of this condition include: A need to urinate often. Weak or interrupted flow of urine. Trouble starting or stopping urination. Inability to urinate. Pain or burning during urination. Painful ejaculation. Blood in urine or semen. Persistent pain or discomfort in the lower back, lower abdomen, hips, or upper thighs. Trouble getting an erection. Trouble emptying the bladder all the way. How is this diagnosed? This condition can be diagnosed with: A digital rectal exam. For this exam, a health care provider inserts a gloved finger into the rectum to feel the prostate gland. A blood test called a prostate-specific antigen (PSA) test. An imaging test called transrectal ultrasonography. A procedure in which a sample of tissue is taken from the prostate and examined under a microscope (prostate biopsy). Once the condition is diagnosed, tests will be done to determine how far the cancer has spread. This is called staging the cancer. Staging may involve imaging tests, such as: A bone scan. A CT scan. A PET scan. An MRI. The stages of prostate cancer are as follows: Stage I. At this stage, the cancer is found in the prostate only. The cancer is not visible on imaging tests and it is usually found by accident, such as during a prostate surgery. Stage II. At this stage, the cancer is more advanced than it is in stage I, but the cancer has not spread outside the prostate. Stage III. At this stage, the cancer has spread beyond the outer layer of the prostate to nearby tissues. The cancer may be found in the seminal vesicles, which are near the bladder and the prostate. Stage IV. At this stage, the cancer has spread other parts of the body, such as the lymph nodes, bones, bladder, rectum, liver, or lungs. How is this treated? Treatment for this condition depends on several factors, including the stage of the cancer, your age, personal preferences, and your overall health. Talk with your health care provider about treatment options that are recommended for you. Common treatments include: Observation for early stage prostate cancer (active surveillance). This involves having exams, blood tests, and in some cases, more biopsies. For some men, this is the only treatment needed. Surgery. Types of surgeries include: ?Open surgery. In this surgery, a larger incision is made to remove the prostate. ?A laparoscopic prostatectomy. This is a surgery to remove the prostate and lymph nodes through several, small incisions. It is often referred to as a minimally invasive surgery. ?A robotic prostatectomy. This is a surgery to remove the prostate and lymph nodes with the help ofa robotic arm that is controlled by a computer. ?Orchiectomy. This is a surgery to remove the testicles. ?Cryosurgery. This is a surgery to freeze and destroy cancer cells. Radiation treatment. Types of radiation treatment include: ?External beam radiation. This type aims beams of radiation from outside the body at the prostate to destroy cancerous cells. ?Brachytherapy. This type uses radioactive needles, seeds, wires, or tubes that are implanted into the prostate gland. Like external beam radiation, brachytherapy destroys cancerous cells. An advantage is that this type of radiation limits the damage to surrounding tissue and has fewer side effects. High-intensity, focused ultrasonography. This treatment destroys cancer cells by delivering high-energy ultrasound waves to the cancerous cells. Chemotherapy medicines. This treatment kills cancer cells or stops them from multiplying. Hormone treatment. This treatment involves taking medicines that act on one of the male hormones (testosterone): ?By stopping your body from producing testosterone. ?By blocking testosterone from reaching cancer cells. Follow these instructions at home: Take [id number] and prescription medicines only as told by your health care provider. Maintain a healthy diet. Get plenty of sleep. Consider joining a support group for men who have prostate cancer. Meeting with a support group mayhelp you learn to cope with the stress of having cancer. Keep all follow-up visits as told by your health care provider. This is important. If you have to go to the hospital, notify your cancer specialist (oncologist). Treatment for prostate cancer may affect sexual function. Continue to have intimate moments with your partner. This may include touching, holding, hugging, and caressing. Contact a health care provider if: You have trouble urinating. You have blood in your urine. You have pain in your hips, back, or chest. Get help right away if: You have weakness or numbness in your legs. You cannot control urination or your bowel movements (incontinence). You have trouble breathing. You have sudden chest pain. You have chills or a fever. Summary The prostate is a walnut-sized gland that is involved in the production of semen. It is located below a man's bladder, in front of the rectum. Prostate cancer is the abnormal growth of cells in the prostate gland. Treatment for this condition depends on several factors, including the stage of the cancer, your age, personal preferences, and your overall health. Talk with your health care provider about treatment options that are recommended for you. Consider joining a support group for men who have prostate cancer. Meeting with a support group mayhelp you learn to cope with the stress of having cancer. This information is not intended to replace advice given to you by your health care provider. Make sure you discuss any questions you have with your health care provider. Document Released: 05/09/2006 Document Revised: 04/21/2018 Document Reviewed: 01/17/2017 [employer] Patient Education 2020 [employer]. Follow Up Care 12/14/2021 10:47:21 With:RENZO MCGARRY, Isa Son, URL Address: [address] [place] [address]- When: Unknown [facility] 01-06-2023 Miscellaneous Notes* Telephone Encounter - Kelly Sevilla RN - 05/28/2022 10:52 AM EST Pt notified and verbalizes understanding. States that he is feeling well. Will keep his appointmentas scheduled. Kelly Sevilla RN * Telephone Encounter - Juancho Aldridge MD - 05/28/2022 10:47 AM EST If the patient did not start Xtandi until 2 weeks ago it is not surprising his PSA has not dropped yet. If he feels okay would be reasonable to see him back as originally scheduled. Thanks, BRM * Telephone Encounter - Kelly Sevilla RN - 05/28/2022 8:07 AM EST PSA drawn 05/26/22. Results 381.92. Previously 320 on 04/08/22. Written instructions received from Denilson to change pt's return visit to 3 weeks. BRM: Pt did not actually start the Xtandi until 05/14. Do you still want his RV adjusted? Kelly Sevilla RN documented in this encounterLake[facility]12-28-2022 Miscellaneous Notes* Telephone Encounter - Roma Washington RN - 05/19/2022 4:00 PM EST ORAL ANTI-CANCER AGENTS FOLLOW-UP PHONE CALL/VISIT Patient identified by name and date of . YES Patient is on cycle 1, week 1, day 6 of Xtandi (enzalutamide) for Prostate cancer. SYMPTOM ASSESSMENT Headache: No Visual Changes: No Dizziness: No Do you have any periods of confusion? No Mood changes: No Mouth or throat pain: No Appetite: no changes in appetite, appetite good Taste changes: No Nausea: No Vomiting: No Heartburn: No. Weight gain/loss: No Episodes of palpitations/chest discomfort/pressure/pain No Shortness of breath: No Cough: No Diarrhea: no Constipation: no Bladder/Urinary Changes: None Pain: No=0 (pain 0 on a scale of 0-10). Fever: No Chills: No Cold sensitivity: No Numbness/weakness: No Edema: No Skin changes: No Itching: No Yellowing of skin or eyes: No Musculoskeletal/joint changes/issues No Bleeding issues: No Activity Level (0-100%): good. Shoveling snow today without becoming tired. Do you need to take naps? No Does the patient need interventions or same day appointment:No ADDITIONAL FOLLOW UP: The next outreach call is due on: as needed and was scheduled as needed The following lab tests are due: PSA, CBC, CMP Verified patient is aware of next appointment in the cancer center: Yes. Verified patient verbalized how to correctly refill the oral agent prescription. Yes Does the patient have any financial difficulties affording this medication? No Patient verbalizes understanding of when to seek Medical Attention? YES Patient verbalizes understanding of after-hours and weekend phone number? YES Patient verbalized importance of medication compliance in taking the oral agent as prescribed. Patient instructed to call if unable to comply. Roma Washington RN * Telephone Encounter - Roma Washington RN - 05/19/2022 12:11 PM EST Pt did call back and leave a message stating he's feeling well and no side effects to mention. Callplaced to pt again and message left requesting a call back. Roma Washington RN * Telephone Encounter - Roma Washington RN - 05/19/2022 10:56 AM EST ORAL ANTI-CANCER AGENTS FOLLOW-UP PHONE CALL/VISIT Patient identified by name and date of . YES Patient is on cycle 1, week 1, day 6 of Xtandi (enzalutamide) for Prostate Cancer. Message left for pt to call our office back. Patient verbalized importance of medication compliance in taking the oral agent as prescribed. Patient instructed to call if unable to comply. Roma Washington RN documented in this encounterLake[facility]12-22-2022 Miscellaneous Notes* Telephone Encounter - Kelly Sevilla RN - 05/13/2022 3:17 PM EST FYI: Pt calls to report that he received his shipment of Xtandi today. Will start the medication tomorrow. Kelly Sevilla RN documented in this encounterLakehealth [facility]12-20-2022 Miscellaneous Notes* Telephone Encounter - Kelly Sevilla RN - 05/11/2022 11:51 AM EST FYI: Pt calls to inform us that his Xtandi is scheduled to be delivered on , 05/13. States he will take his last dose of Casodex that day and start Xtandi on 05/14. Kelly Sevilla RN documented in this encounterLake[facility] Center12-13-2022 Miscellaneous Notes* Telephone Encounter - Kelly Sevilla RN - 05/04/2022 2:14 PM EST Pt notified and verbalizes understanding. Will be leaving for [place] tomorrow. Will return on Tuesday, 05/10. Asked pt to call me when he gets back w/ status of medication delivery. Pt verbalizes understanding and agree. Kelly Sevilla RN * Telephone Encounter - Itzel Tyler RPh - 05/03/2022 9:55 AM EST It seems that the drug rep who was helping Sheila with the new application process gave her the wrongpharmacy to send the script to. The pharmacy she provided does the paperwork for the free drug, butdoes not fill the drug. I will pend a new script to send to the correct pharmacy. Merlin Tyler rPh * Telephone Encounter - Kelly Sevilla RN - 05/03/2022 8:51 AM EST Pt notified and verbalizes understanding. Asked that he call and notify when medication started. Ptagrees. Pharmacy: Pt still waiting to hear from [facility] regarding shipment. Kelly Sevilla RN * Telephone Encounter - Kelly Sevilla RN - 05/03/2022 8:48 AM EST Images from the original note were not included. MD Itzel Avalos RPh Yesterday (7:27 AM) Agree with plans to start Xtandi after he returns from vacation. Thanks, BRIrma * Telephone Encounter - Itzel Tyler RPh - 04/30/2022 9:23 AM EST Received a fax this morning that Aung has been approved for free Xtandi. I spoke to Aung and Fernanda this morning letting them know that [facility] ([phone]) would be reaching out to them to set up delivery and to call us Tuesday am if they do not hear from them. Aung is leaving on vacation 05/05/22- 05/10/22. I told them, as long as they have bicalutamide still, he could wait to start the Xtandi when he returns, if he would like too. Thank you, Merlin Tyler rPh * Telephone Encounter - Itzel Tyler RPh - 04/29/2022 8:45 AM EST Received fax today that it is in process Merlin Tyler rPh * Telephone Encounter - Kelly Sevilla RN - 04/28/2022 11:07 AM EST Pharmacy: Any update on the status of pt's free drug application? Kelly Sevilla RN documented in this encounterLake[facility]11-29-2022 History of Present illness Narrative* Kelly Sevilla RN - 04/20/2022 9:24 AM EST ORAL ANTI-CANCER AGENTS EDUCATION patient here today for oral medication education for Xtandi (enzalutamide) for Prostate Cancer READINESS TO LEARN Cognitive Ability: Alert and oriented Motivation to Learn: Interested Family Support: Unable to assess - Family not present Instruction Provided to: Patient Patient learns best by: Multiple Methods Factors affecting learning: None Physical limitation affecting learning: None MOTTA ASSESSMENT: 1.) Verified that patient knows that the oral agents are for cancer and are taken by mouth. Yes 2.) Medication reconciliation completed during visit. Yes 3.) Patient is able to swallow pills. Yes 4.) Patient is able to read the drug label/information. Yes 5.) Patient is able to open the medication bottles and packages. Yes 6.) Has patient taken other pills for cancer? YES, please explain: Bicalutamide 7.) Is patient experiencing any symptoms that would affect their ability to keep down pills, for example nausea or vomiting? No 8.) Verified that patient understands prescription delivery, benefit investigation and refill process. Yes PATIENT EDUCATION: 1.) Verified that patient attended individualized instruction on chemotherapy taught by a nurse. Yes 2.) Verified that patient received Chemotherapy Safety in the Home handout, ChemoCare Medication Information handout: Enzalutamide, Specialty Pharmacy Information : [facility], and Specialty Pharmacy phone numbers: Yes DRUG-SPECIFIC EDUCATION: 1.) Verified that patient knows the drug name. Yes 2.) Verified patient understands the dose and schedule of oral chemo agent:with water, with or without food. Yes 3.) Verified patient knows what to do if a medication dose is missed. Yes 4.) Verified patient understands where to store the drug. Yes 5.) Verified patient understands potential side effects and how to manage them. Yes Diarrhea, Fatigue, Peripheral Edema, Myalgia, Arthalgia, Hot Flashes, and Fluid Retention 6.)Verified that patient understands handling precautions of oral chemo agent. Yes 7.) Verified that patient understands when and whom to call with questions. Yes 8.) Verified that patient understands where and how to return drug. Yes Free drug approval pending. Pt is aware that our pharmacy will contact him when determination has been made. EVALUATE: Patient was able to demonstrate an understanding of all the above education using the teach-back method. Yes Patient instructed to call us with any questions, concerns, and/or unresolved symptoms. Will continue to follow up with patient and provide reinforcement of teaching topics as needed. Total time spent with patient: 20 minutes Total time spent on encounter: 5 minutes Kelly Sevilla RN documented in this encounterLakehealth [facility] Center11-23-2022 Miscellaneous Notes* Telephone Encounter - Roma Washington RN - 04/14/2022 4:53 PM EST Pt notified of this and that he will be getting a call from our office the beginning of next week with an update. Roma Washington RN * Telephone Encounter - Juancho Aldridge MD - 04/13/2022 5:22 PM EST Please inform the patient I would like to prescribe enzalutamide. I will send the prescription to our pharmacy to get a cost factor. If too expensive we can explore other options. Thanks, BRIrma * Telephone Encounter - Kelly Sevilla RN - 04/13/2022 8:35 AM EST Pt notified and agrees to try 2nd gen antiandrogen. Please prescribe. PSA & Testosterone results faxed to Dr Emerson's office. Kelly Sevilla RN * Telephone Encounter - Savanna Adrian PA-C - 04/13/2022 8:05 AM EST Cindy, Please call patient with Dr. Aldridge's message below and please fax PSA results to Dr. Emerson's office at patient's request for upcoming appointment. Savanna Adrian PA-C * Telephone Encounter - Savanna Adrian PA-C - 04/13/2022 8:05 AM EST ----- Message from Juancho Aldridge MD sent at 04/12/2022 7:24 PM EST ----- Please inform the patient that his PSA has increased somewhat. We can watch 1 more time or change to second line antiandrogens now. If in agreement I would consider changing to abiraterone or enzalutamide. PATTI Gutierrez documented in this encounterLakehealth [facility]wood [facility] Center11-17-2022 History of Present illness Narrative* Savanna Adrian PA-C - 04/08/2022 2:30 PM EST PATIENT NAME: aKrin Mart DATE: 04/08/2022 PRIMARY CARE PHYSICIAN: Dr. Nina Smith OTHER PHYSICIANS: Dr. Muller (Elements copied from Dr. Aldridge's note dated December 24, 2021, have been reviewed and updated where appropriate, and all reflect current assessment and medical decision making during today's encounter, April 08, 2022) CC: This is an 81 year old male with recently diagnosed metastatic prostate cancer, referred for further management. INTERIM HISTORY: Aung returns today with his Cheryl. He continues to take Casodex and is tolerating it well. His last Lupron injection was in November 2021 and he is scheduled for May with Dr. Muller. He denies any pain, cough, shortness of breath, or urinary issues at this time. He is taking his calcium daily as well. MEDICATIONS: Current Outpatient Medications Medication Sig bicalutamide (CASODEX) 50 mg tablet Take 50 mg by mouth. tamsulosin (FLOMAX) 0.4 mg Take by mouth twice daily. CALCIUM-VITAMIN D3 ORAL Take 1 tablet by mouth once daily. No current facility-administered medications for this visit. ALLERGIES: ALLERGIES No Known Allergies PAST MEDICAL HISTORY: PAST MEDICAL HISTORY Diagnosis Date Prostate cancer (HCC) PAST SURGICAL HISTORY: PAST SURGICAL HISTORY Procedure Laterality Date COLONOSCOPY PROSTATE BIOPSY FAMILY HISTORY: FAMILY HISTORY Problem Relation Age of Onset Emphysema Father SOCIAL HISTORY: Social History Tobacco Use Smoking status: Former Passive exposure: Past Smokeless tobacco: Never Substance Use Topics Alcohol use: Not Currently Drug use: Never COMPLETE REVIEW OF SYSTEMS: CONSTITUTION: Negative for pain, fatigue, weight loss, or appetite loss. EENT: Negative for mouth soreness, antibiotics use, epistaxis, visual problems, neck or facial swelling, fever/chills, bleeding gums, or hearing loss. CV: Negative for edema, calf swelling, palpitations, or chest pain. RESPIRATORY: Negative for cough, SOB, hemoptysis, or wheezing. GI: Negative for nausea/vomiting, heartburn, vomiting blood, dysphasia, diarrhea, blood in stool, constipation, early satiety, PICA, vegetarian, poor nutrition, abdominal fullness, or abdominal pain. NEUROLOGICAL: Negative for numbness/tingling, dizziness, gait disturbance, headache, speech disturbance, tremor, hemiparesis/sensory loss, or change in mental status. MUSCULOSKELETAL: Negative for joint pain, joint swelling, or proximal muscle weakness. SKIN: Negative for hair loss, bruising, nail changes, rash, itching, pallor, or jaundice. ENDO/URO: Negative for hot flashes, cold or heat intolerance, urinary frequency, urinary hesitancy,menorrhagia, or hematuria. PSYCH: Negative for anxiety, depression, or other. PHYSICAL EXAM: BP (!) 122/47 Pulse 74 Temp 36.4 C (97.6 F) (Temporal) Resp 16 Ht 174 cm (5' 8.5 ) Wt 65.9 kg (145 lb 3.2 oz) SpO2 99% BMI 21.75 kg/m General: Alert and oriented, no distress, pleasant and cooperative. Heart: Regular, normal S1 and S2, no murmurs, rubs, or gallops Lungs: Clear to auscultation bilaterally Abdomen: Benign Extremities: Feet/ankles without edema, posterior tibial pulses full and symmetrical PATHOLOGY: 12/02/2021 TRUS biopsy ([facility]) [place] score 4+5=9 in multiple cores LABS: Hemoglobin (g/dL) Date Value 04/08/2022 13.5 Hematocrit (%) Date Value 04/08/2022 41.9 WBC (k/uL) Date Value 04/08/2022 4.01 Platelet Count (k/uL) Date Value 04/08/2022 190 PSA 03/16/2021 10.3 11/24/2021 629.7 12/24/2021 792 02/04/2022 257 RADIOLOGY/OTHER STUDIES: 12/09/2021 Nuclear bone scan ([facility]) Diffuse and extensive abnormal foci throughout the bones including the spine, ribs, pelvis, calvarium, scapula, humerus, sternum and femurs. Consistent with diffuse and extensive bone metastases. 11/24/2021 CT Abd/Pelvis ([facility]) Unremarkable bowel. No acute findings. Wall thickening of the urinary bladder likely due to muscular hypertrophy. Numerous skeletal lesions and enlarged prostate suggest prostate cancer. 11/24/2021 chest x-ray ([facility]) Hyperexpanded lungs. No acute cardiopulmonary process. ASSESSMENT/PLAN: 1. Prostate cancer (HCC) - ICD9: 185, ICD10: C61 (primary diagnosis) Metastatic prostate cancer diagnosed November 2021. The patient presented with a markedly elevated PSA.Prostate biopsy 12/02/2021 confirmed adenocarcinoma, Gosia 4+5=9. Bone scan obtained 12/09/2021 revealed extensive bone metastases. CT abdomen/pelvis and chest x-ray revealed no evidence of visceral metastases. 12/14/2021 the patient received Lupron 45 mg IM and was started on Casodex 50 mg daily. PSA dropped significantly, today's is pending He remains clinically asymptomatic. At this time he will continue Casodex and Lupron (next due in May with Dr. Muller). Will follow up on today's PSA. If there is concern that he is not responding, we could consider changing therapy to a second generation antiandrogen. He will follow up in 3 months for follow up and labs. 2. Bone metastases (HCC) - ICD9: 198.5, ICD10: C79.51 Extensive bone metastases on baseline bone scan 12/09/2021. Xgeva started 01/07/2022, with plans to give every 3 months. He will receive his Xgeva today. Educated patient on importance of remaining on oral calcium. Savanna Adrian PA-C CC: Dr. Muller, [facility] urology documented in this encounterLakehealth [facility] Center09-15-2022 Miscellaneous Notes* Telephone Encounter - Kelly Sevilla RN - 02/04/2022 4:00 PM EDT FYI: Pt would like you to know that he does not wish to change to Zometa. Would prefer to stick w/ the Xgeva depsite his co-pay of $520. Pt will f/u as scheduled in March. [place]: Is there any co-pay assistance available for Xgeva? Kelly Sevilla RN documented in this encounterLakehealth [facility]wood [facility] Center08-18-2022 History of Present illness Narrative* Kelly Sevilla RN - 01/07/2022 10:37 AM EDT ONCOLOGY PATIENT EDUCATION NOTE TOPIC: Bisphosphonate, Medications: Xgeva READINESS TO LEARN: COGNITIVE ABILITY: Alert and oriented MOTIVATION TO LEARN: Interested FAMILY SUPPORT: High - Very involved in pt care INSTRUCTION PROVIDED TO: Patient and Spouse INSTRUCTION PROVIDED BY: Nurse Coordinator PATIENT LEARNS BEST BY: Multiple Methods FACTORS AFFECTING LEARNING: None PHYSICAL LIMITATIONS AFFECTING LEARNING: None LEARNING RESPONSE DIAGNOSIS: Metastatic Prostate Cancer METHOD OF INSTRUCTION: Individual instruction Written instruction - handouts Verbal instruction PATIENT/FAMILY RESPONSE: Verbalizes understanding of: MEDICATION PRESCRIBED- Accurate knowledge of prescribed medication prior to discharge MEDICATION ROUTE-Correct route for administration of the prescribed medication MEDICATION SIDE EFFECTS-Side effects associated with the medication that warrant a call to the physician SYMPTOM MANAGEMENT-Correct actions to take to manage symptoms associated with his/her disease/illness WORSENING CONDITION-Signs and symptoms of a worsening condition that warrant a call to the physician Information received as demonstrated by interest and questions FOLLOW UP PLAN: Patient instructed to call with any further issues Contact information given. SUPPLEMENTAL MATERIAL: Written material was provided at this visit with the following information: - Bisphosphonate education was provided by a pharmacist NO - Side effect management information was provided/discussed including but not limited to: arthralgia, bowel habit changes, fatigue, headache, mouth hygiene, myalgia, nausea/vomitting, rash, skin changes, osteonecrosis of the jaw YES - Provided important phone numbers and contacts during and after hours. YES - Provided information on symptoms that require immediate assistance. YES - Provided Chemotherapy when to call handouts YES - Preventing infection. YES - Treatment schedule and confirmation of appointment times. YES - Available support groups. NA - The importance of contraception during the course of chemotherapy NA - Patient services information. YES Time Spent: 20 minutess REFERRAL (RECOMMENDATION): N/A Kelly Sevilla RN documented in this encounterLakehealth Beach[facility] Center08-04-2022 Nurse Note* Fernanda Jeronimo MA - 12/24/2021 11:19 AM EDT Patient states he had dealt with Covid all of November and also had a catheter 2x recently caused by retention. Fernanda Jeronimo MA documented in this encounterLakehealth Beachwood [facility] Center08-04-2022 History of Present illness Narrative* Juancho Aldridge MD - 12/24/2021 6:41 AM EDT PATIENT NAME: Karin Mart DATE: 12/24/2021 PRIMARY CARE PHYSICIAN: Dr. Nina Smith OTHER PHYSICIANS: Dr. Muller HPI: This is an 81 year old male with recently diagnosed metastatic prostate cancer, referred for further management. The patient has a long history of an elevated PSA. Initial prostate biopsy 08/22/2018 revealed minutefoci of atypical glands suspicious for adenocarcinoma, and observation was recommended. Apparently his PSA in June 2020 was 12.84, and repeat PSA 03/16/2021 was 10.3. Apparently he remained clinically stable until early November 2021 when he developed multiple symptoms including severe weakness, weight loss, and abdominal pain. These symptoms developed shortly after he drove to [facility], and apparently was diagnosed with COVID infection. He was seen at the [place] emergency room on 11/24/2021. CT abdomen/pelvis revealed no acute intra-abdominal abnormalities, but he was found to have an enlarged prostate with bone lesions suspicious for metastases. Repeat PSA obtained 11/28/2021 was markedly elevated at 629. The patient underwent a TRUS prostate biopsy on 12/02/2021, and pathology revealed adenocarcinoma with a Gosia score of 4+5 = 9. Subsequent bone scan obtained 12/09/2021 revealed di ffuse and extensive bone metastases. The patient was seen by urology, and on 12/14/2021 was started on treatment with Casodex 50 mg dailyand he received his first Lupron injection of 45 mg. He also was started on an appetite stimulant by his PCP (Decadron 1 mg daily). With this treatment he has felt much better. Energy and appetite have already improved. Throughout this time the patient has had no bone pain. He has lower urinary tract symptoms, previously requiring Zarco catheter placement. He has had no hematuria. Review of systems is positive for 20 pound weight loss in the past year or so. He denies any cough or shortness of breath. He has had no dental problems. The patient is retired from the [employer]. He is currently and has 4 children. Family history is negative. He does not smoke. He drinks alcohol very minimally. MEDICATIONS: No current outpatient medications on file. No current facility-administered medications for this visit. ALLERGIES: ALLERGIES No Known Allergies PAST MEDICAL HISTORY: No past medical history on file. PAST SURGICAL HISTORY: No past surgical history on file. FAMILY HISTORY: No family history on file. SOCIAL HISTORY: Social History Tobacco Use Smoking status: Not on file Smokeless tobacco: Not on file Substance Use Topics Alcohol use: Not on file Drug use: Not on file COMPLETE REVIEW OF SYSTEMS: CONSTITUTION: Negative for pain, fatigue, weight loss, or appetite loss. EENT: Negative for mouth soreness, antibiotics use, epistaxis, visual problems, neck or facial swelling, fever/chills, bleeding gums, or hearing loss. CV: Negative for edema, calf swelling, palpitations, or chest pain. RESPIRATORY: Negative for cough, SOB, hemoptysis, or wheezing. GI: Negative for nausea/vomiting, heartburn, vomiting blood, dysphasia, diarrhea, blood in stool, constipation, early satiety, PICA, vegetarian, poor nutrition, abdominal fullness, or abdominal pain. NEUROLOGICAL: Negative for numbness/tingling, dizziness, gait disturbance, headache, speech disturbance, tremor, hemiparesis/sensory loss, or change in mental status. MUSCULOSKELETAL: Negative for joint pain, joint swelling, or proximal muscle weakness. SKIN: Negative for hair loss, bruising, nail changes, rash, itching, pallor, or jaundice. ENDO/URO: Negative for hot flashes, cold or heat intolerance, urinary frequency, urinary hesitancy,menorrhagia, or hematuria. PSYCH: Negative for anxiety, depression, or other. PHYSICAL EXAM: BP (!) 115/48 Pulse 62 Temp 36.4 C (97.6 F) (Temporal) Resp 16 Ht 174 cm (5' 8.5 ) Wt 64.9 kg (143 lb) SpO2 99% BMI 21.42 kg/m GENERAL EXAM: Well developed/well nourished; in no acute distress. SKIN: Negative for lesions, rashes, or ulcers on the upper and lower extremities and face. Negativefor palpations/nodules, purpura, and ecchymosis. EENT: Negative for conjunctiva, mucosal pallor, JVD, LAP, thyromegaly, and glossitis. Supple & PERRL. EXTREMITIES: Negative for cyanosis, clubbing, and crepitus. LUNGS: Negative to auscultation, respiratory effort, and percussion. CARDIOVASCULAR: Regular rate. Negative for murmurs/S3S4/abnormal sounds, edema, and carotid bruits. ABDOMEN: Negative for masses, hernia, and spleen/liver abnormalities. RECTAL: Not done PSYCHIATRIC: Negative for mood/affect changes, recent & remote memory changes, and judgement and insight. NEUROLOGICAL: Alert, oriented x person, place, time. Cranial nerves 2-12 intact. Sensory for pain, light touch, vibration intact on all 4 extremities. Reflexes symmetric for biceps/brachioradial/patella/achilles. MUSCULOSKELETAL: Negative examination of joints, bones, muscles/tendons of all four extremities forinspection, percussion, and palpation. Negative for misallignment, asymmetry, crepitation, tenderness, mass, effusions. Range of motion normal. Negative for joint instability, laxity, dislocation. Gait steady. Negative for swelling, erythema, tenderness, soft tissue swelling, and atrophy. PATHOLOGY: 12/02/2021 TRUS biopsy ([facility] [facility] [place] score 4+5=9 in multiple cores LABS: Hemoglobin (g/dL) Date Value 12/24/2021 12.0 Hematocrit (%) Date Value 12/24/2021 37.7 WBC (k/uL) Date Value 12/24/2021 6.18 Platelet Count (k/uL) Date Value 12/24/2021 228 PSA 11/24/2021 629.7 03/16/2021 10.3 RADIOLOGY/OTHER STUDIES: 12/09/2021 Nuclear bone scan ([facility]) Diffuse and extensive abnormal foci throughout the bones including the spine, ribs, pelvis, calvarium, scapula, humerus, sternum and femurs. Consistent with diffuse and extensive bone metastases. 11/24/2021 CT Abd/Pelvis ([facility]) Unremarkable bowel. No acute findings. Wall thickening of the urinary bladder likely due to muscular hypertrophy. Numerous skeletal lesions and enlarged prostate suggest prostate cancer. 11/24/2021 chest x-ray ([facility]) Hyperexpanded lungs. No acute cardiopulmonary process. ASSESSMENT/PLAN: 1. Prostate cancer (HCC) - ICD9: 185, ICD10: C61 (primary diagnosis) Metastatic prostate cancer diagnosed November 2021. The patient presented with a markedly elevated PSA.Prostate biopsy 12/02/2021 confirmed adenocarcinoma, [place] 4+5=9. Bone scan obtained 12/09/2021 revealed extensive bone metastases. CT abdomen/pelvis and chest x-ray revealed no evidence of visceral metastases. 12/14/2021 the patient received Lupron 45 mg IM and was started on Casodex 50 mg daily. Currently he is minimally symptomatic. Options for further management and NCCN guidelines were reviewed at length with the patient and hiswife. For now the patient will continue with Casodex 50 mg daily. He anticipates continuing Lupron every 6 months, next injection due May 2022. We will monitor the patient's PSA, and if it does not decrease as expected we will discuss other treatment options including second-generation antiandrogens. I will see the patient back in 6 weeks for follow-up and labs. 2. Bone metastases (HCC) - ICD9: 198.5, ICD10: C79.51 Extensive bone metastases on baseline bone scan 12/09/2021. Per NCCN guidelines antiresorptive therapy is indicated. We elected to start the patient on Xgeva, with initial plans to give every 3 months. He will return in 2 weeks for his first injection. Juancho Aldridge MD CC: Dr. Muller, [facility] Discharge instructions Patient Education 12/14/2021 10:31:05 Prostate Cancer Prostate Cancer The prostate is a walnut-sized gland that is involved in the production of semen. It is located below a man's bladder, in front of the rectum. Prostate cancer is the abnormal growth of cells in the prostate gland. What are the causes? The exact cause of this condition is not known. What increases the risk? This condition is more likely to develop in men who: Are older than age 65. Are -N[place]ib[place]. Are obese. Have a family history of prostate cancer. Have a family history of breast cancer. What are the signs or symptoms? Symptoms of this condition include: A need to urinate often. Weak or interrupted flow of urine. Trouble starting or stopping urination. Inability to urinate. Pain or burning during urination. Painful ejaculation. Blood in urine or semen. Persistent pain or discomfort in the lower back, lower abdomen, hips, or upper thighs. Trouble getting an erection. Trouble emptying the bladder all the way. How is this diagnosed? This condition can be diagnosed with: A digital rectal exam. For this exam, a health care provider inserts a gloved finger into the rectum to feel the prostate gland. A blood test called a prostate-specific antigen (PSA) test. An imaging test called transrectal ultrasonography. A procedure in which a sample of tissue is taken from the prostate and examined under a microscope (prostate biopsy). Once the condition is diagnosed, tests will be done to determine how far the cancer has spread. This is called staging the cancer. Staging may involve imaging tests, such as: A bone scan. A CT scan. A PET scan. An MRI. The stages of prostate cancer are as follows: Stage I. At this stage, the cancer is found in the prostate only. The cancer is not visible on imaging tests and it is usually found by accident, such as during a prostate surgery. Stage II. At this stage, the cancer is more advanced than it is in stage I, but the cancer has not spread outside the prostate. Stage III. At this stage, the cancer has spread beyond the outer layer of the prostate to nearby tissues. The cancer may be found in the seminal vesicles, which are near the bladder and the prostate. Stage IV. At this stage, the cancer has spread other parts of the body, such as the lymph nodes, bones, bladder, rectum, liver, or lungs. How is this treated? Treatment for this condition depends on several factors, including the stage of the cancer, your age, personal preferences, and your overall health. Talk with your health care provider about treatment options that are recommended for you. Common treatments include: Observation for early stage prostate cancer (active surveillance). This involves having exams, blood tests, and in some cases, more biopsies. For some men, this is the only treatment needed. Surgery. Types of surgeries include: ?Open surgery. In this surgery, a larger incision is made to remove the prostate. ?A laparoscopic prostatectomy. This is a surgery to remove the prostate and lymph nodes through several, small incisions. It is often referred to as a minimally invasive surgery. ?A robotic prostatectomy. This is a surgery to remove the prostate and lymph nodes with the help ofa robotic arm that is controlled by a computer. ?Orchiectomy. This is a surgery to remove the testicles. ?Cryosurgery. This is a surgery to freeze and destroy cancer cells. Radiation treatment. Types of radiation treatment include: ?External beam radiation. This type aims beams of radiation from outside the body at the prostate to destroy cancerous cells. ?Brachytherapy. This type uses radioactive needles, seeds, wires, or tubes that are implanted into the prostate gland. Like external beam radiation, brachytherapy destroys cancerous cells. An advantage is that this type of radiation limits the damage to surrounding tissue and has fewer side effects. High-intensity, focused ultrasonography. This treatment destroys cancer cells by delivering high-energy ultrasound waves to the cancerous cells. Chemotherapy medicines. This treatment kills cancer cells or stops them from multiplying. Hormone treatment. This treatment involves taking medicines that act on one of the male hormones (testosterone): ?By stopping your body from producing testosterone. ?By blocking testosterone from reaching cancer cells. Follow these instructions at home: Take ltap-mdd-kqedckm and prescription medicines only as told by your health care provider. Maintain a healthy diet. Get plenty of sleep. Consider joining a support group for men who have prostate cancer. Meeting with a support group mayhelp you learn to cope with the stress of having cancer. Keep all follow-up visits as told by your health care provider. This is important. If you have to go to the hospital, notify your cancer specialist (oncologist). Treatment for prostate cancer may affect sexual function. Continue to have intimate moments with your partner. This may include touching, holding, hugging, and caressing. Contact a health care provider if: You have trouble urinating. You have blood in your urine. You have pain in your hips, back, or chest. Get help right away if: You have weakness or numbness in your legs. You cannot control urination or your bowel movements (incontinence). You have trouble breathing. You have sudden chest pain. You have chills or a fever. Summary The prostate is a walnut-sized gland that is involved in the production of semen. It is located below a man's bladder, in front of the rectum. Prostate cancer is the abnormal growth of cells in the prostate gland. Treatment for this condition depends on several factors, including the stage of the cancer, your age, personal preferences, and your overall health. Talk with your health care provider about treatment options that are recommended for you. Consider joining a support group for men who have prostate cancer. Meeting with a support group mayhelp you learn to cope with the stress of having cancer. This information is not intended to replace advice given to you by your health care provider. Make sure you discuss any questions you have with your health care provider. Document Released: 05/09/2006 Document Revised: 04/21/2018 Document Reviewed: 01/17/2017 SOS Online Backup Patient Education 2020 [employer]. Follow Up Care 12/02/2021 08:26:52 With:RENZO MCGARRY, Isa Son, URL Address: [facility] [address] [place] [phone] When: Unknown [facility] 07-13-2022 Hospital Discharge instructions Patient Education 12/02/2021 07:41:00 Prostate Cancer Screening Prostate Cancer Screening The prostate is a walnut-sized gland that is located below the bladder and in front of the rectum in males. The function of the prostate (prostate gland) is to add fluid to semen during ejaculation. Prostate cancer is the second most common type of cancer in men. A screening test for cancer is a test that is done before cancer symptoms start. Screening can helpto identify cancer at an early stage, when the cancer can be treated more easily. The recommended prostate cancer screening test is a blood test called the prostate-specific antigen (PSA) test. PSA is a protein that is made in the prostate. As you age, your prostate naturally produces more PSA. Abnormally high PSA levels may be caused by: Prostate cancer. An enlarged prostate that is not caused by cancer (benign prostatic hyperplasia, BPH). This condition is very common in older men. A prostate gland infection (prostatitis). Medicines to assist with hair growth, such as finasteride. Depending on the PSA results, you may need more tests, such as: A physical exam to check the size of your prostate gland. Blood and imaging tests. A procedure to remove tissue samples from your prostate gland for testing (biopsy). Who should have screening? Screening recommendations vary based on age. If you are younger than age 40, screening is not recommended. If you are age 40 54 and you have no risk factors, screening is not recommended. If you are younger than age 55, ask your health care provider if you need screening if you have oneof these risk factors: ?Being of -[place]ian descent. ?Having a family history of prostate cancer. If you are age 55 69, talk with your health care provider about your need for screening and how often screening should be done. If you are older than age 70, screening is not recommended. This is because the risks that screening can cause are greater than the benefits that it may provide (risks outweigh the benefits). If you are at high risk for prostate cancer, your health care provider may recommend that you have screenings more often or start screening at a younger age. You may be at high risk if you: Are older than age 55. Are -N[place]ibian. Have a father, brother, or uncle who has been diagnosed with prostate cancer. The risk may be higher if your family member's cancer occurred at an early age. What are the benefits of screening? There is a small chance that screening may lower your risk of dying from prostate cancer. The chance is small because prostate cancer is typically a slow-growing cancer, and most men with prostate cancer from a different cause. What are the risks of screening? The main risk of prostate cancer screening is diagnosing and treating prostate cancer that would never have caused any symptoms or problems (overdiagnosis and overtreatment). PSA screening cannot tell you if your PSA is high due to cancer or a different cause. A prostate biopsy is the only procedure to diagnose prostate cancer. Even the results of a biopsy may not tell you if your cancer needs elizabeth treated. Slow-growing prostate cancer may not need any treatment other than monitoring, so diagnosing and treating it may cause unnecessary stress or other side effects. A prostate biopsy may also cause: Infection or fever. A false negative. This is a result that shows that you do not have prostate cancer when you actually do have prostate cancer. Questions to ask your health care provider When should I start prostate cancer screening? What is my risk for prostate cancer? How often do I need screening? What type of screening tests do I need? How do I get my test results? What do my results mean? Do I need treatment? Contact a health care provider if: You have difficulty urinating. You have pain when you urinate or ejaculate. You have blood in your urine or semen. You have pain in your back or in the area of your prostate. You have trouble getting or maintaining an erection (erectile dysfunction, ED). Summary Prostate cancer is a common type of cancer in men. The prostate (prostate gland) is located below the bladder and in front of the rectum. This gland adds fluid to semen during ejaculation. Prostate cancer screening may identify cancer at an early stage, when the cancer can be treated more easily. The prostate-specific antigen (PSA) test is the recommended screening test for prostate cancer. Discuss the risks and benefits of prostate cancer screening with your health care provider. If you are age 70 or older, screening is likely to lead to more risks than benefits (risks outweigh the benefits). This information is not intended to replace advice given to you by your health care provider. Make sure you discuss any questions you have with your health care provider. Document Released: 02/17/2018 Document Revised: 04/21/2018 Document Reviewed: 02/17/2018 SOS Online Backup Patient Education 2020 [employer]. Follow Up Care 12/01/2021 15:15:14 With:RENZO MCGARRY, Isa Son, URL Address: [facility] [address] [place] [address]- [phone] When: Unknown [facility] 07-12-2022 Hospital Discharge instructions Patient Education 12/01/2021 10:08:28 Transrectal Ultrasound-Guided Prostate Biopsy Transrectal Ultrasound-Guided Prostate Biopsy A transrectal ultrasound-guided prostate biopsy is a procedure to remove samples of prostate tissuefor testing. The procedure uses ultrasound images to guide the process of removing the samples. Thesamples are taken to a lab to be checked for prostate cancer. This procedure is usually done to evaluate the prostate gland of men who have raised (elevated) levels of prostate-specific antigen (PSA), which can be a sign of prostate cancer. Tell a health care provider about: Any allergies you have. All medicines you are taking, including vitamins, herbs, eye drops, creams, and silr-xvs-cqfmtdr medicines. Any problems you or family members have had with anesthetic medicines. Any blood disorders you have. Any surgeries you have had. Any medical conditions you have. What are the risks? Generally, this is a safe procedure. However, problems may occur, including: Prostate infection. Bleeding from the rectum. Blood in the urine. Allergic reactions to medicines. Damage to surrounding structures such as blood vessels, organs, or muscles. Difficulty passing urine. Nerve damage. This is usually temporary. Pain. What happens before the procedure? Staying hydrated Follow instructions from your health care provider about hydration, which may include: Up to 2 hours before the procedure you may continue to drink clear liquids, such as water, clear fruit juice, black coffee, and plain tea. Eating and drinking restrictions Follow instructions from your health care provider about eating and drinking, which may include: 8 hours before the procedure stop eating heavy meals or foods such as meat, fried foods, or fatty foods. 6 hours before the procedure stop eating light meals or foods, such as toast or cereal. 6 hours before the procedure stop drinking milk or drinks that contain milk. 2 hours before the procedure stop drinking clear liquids. Medicines Ask your health care provider about: Changing or stopping your regular medicines. This is especially important if you are taking diabetes medicines or blood thinners. Taking mcup-teg-onusxre medicines, vitamins, herbs, and supplements. Taking medicines such as aspirin and ibuprofen. These medicines can thin your blood. Do not take these medicines unless your health care provider tells you to take them. General instructions You may be given antibiotic medicine to help prevent infection. If so, take the antibiotic as told by your health care provider. You will be given an enema. During an enema, a liquid is injected into your rectum to clear out waste. You may have a blood or urine sample taken. Plan to have someone take you home from the hospital or clinic. What happens during the procedure? To lower your risk of infection: ?Your health care team will wash or sanitize their hands. ?Hair may be removed from the surgical area. ?Your skin will be cleaned with a germ-killing soap. ?You may be given antibiotic medicine. An IV will be inserted into one of your veins. You will be given one or both of the following: ?A medicine to help you relax (sedative). ?A medicine to numb the area (local anesthetic). You will be placed on your left side, and your knees will be bent toward your chest. A probe with lubricated gel will be placed into your rectum, and images will be taken of your prostate and surrounding structures. Numbing medicine will be injected into your prostate. A biopsy needle will be inserted through your rectum and guided to your prostate using the ultrasound images. Prostate tissue samples will be removed, and the needle will then be removed. The biopsy samples will be sent to a lab to be tested. The procedure may vary among health care providers and hospitals. What happens after the procedure? Your blood pressure, heart rate, breathing rate, and blood oxygen level will be monitored until themedicines you were given have worn off. You may have some discomfort in the rectal area. You will be given pain medicine as needed. Do not drive for 24 hours if you received a sedative. Summary A transrectal ultrasound-guided biopsy removes samples of tissue from your prostate. This procedure is usually done to evaluate the prostate gland of men who have raised (elevated) levels of prostate-specific antigen (PSA), which can be a sign of prostate cancer. After your procedure, you may feel some discomfort in the rectal area. Plan to have someone take you home from the hospital or clinic. This information is not intended to replace advice given to you by your health care provider. Make sure you discuss any questions you have with your health care provider. Document Released: 09/23/2014 Document Revised: 08/29/2019 Document Reviewed: 08/05/2017 SOS Online Backup Patient Education 2020 [employer]. 12/01/2021 09:58:09 Benign Prostatic Hyperplasia Benign Prostatic Hyperplasia Benign prostatic hyperplasia (BPH) is an enlarged prostate gland that is caused by the normal agingprocess and not by cancer. The prostate is a walnut-sized gland that is involved in the production of semen. It is located in front of the rectum and below the bladder. The bladder stores urine and the urethra is the tube that carries the urine out of the body. The prostate may get bigger as a man gets older. An enlarged prostate can press on the urethra. This can make it harder to pass urine. The build-up of urine in the bladder can cause infection. Back pressure and infection may progress to bladder damage and kidney (renal) failure. What are the causes? This condition is part of a normal aging process. However, not all men develop problems from this condition. If the prostate enlarges away from the urethra, urine flow will not be blocked. If it enlarges toward the urethra and compresses it, there will be problems passing urine. What increases the risk? This condition is more likely to develop in men over the age of 50 years. What are the signs or symptoms? Symptoms of this condition include: Getting up often during the night to urinate. Needing to urinate frequently during the day. Difficulty starting urine flow. Decrease in size and strength of your urine stream. Leaking (dribbling) after urinating. Inability to pass urine. This needs immediate treatment. Inability to completely empty your bladder. Pain when you pass urine. This is more common if there is also an infection. Urinary tract infection (UTI). How is this diagnosed? This condition is diagnosed based on your medical history, a physical exam, and your symptoms. Tests will also be done, such as: A post-void bladder scan. This measures any amount of urine that may remain in your bladder after you finish urinating. A digital rectal exam. In a rectal exam, your health care provider checks your prostate by putting a lubricated, gloved finger into your rectum to feel the back of your prostate gland. This exam detects the size of your gland and any abnormal lumps or growths. An exam of your urine (urinalysis). A prostate specific antigen (PSA) screening. This is a blood test used to screen for prostate cancer. An ultrasound. This test uses sound waves to electronically produce a picture of your prostate gland. Your health care provider may refer you to a specialist in kidney and prostate diseases (urologist). How is this treated? Once symptoms begin, your health care provider will monitor your condition (active surveillance or watchful waiting). Treatment for this condition will depend on the severity of your condition. Treatment may include: Observation and yearly exams. This may be the only treatment needed if your condition and symptoms are mild. Medicines to relieve your symptoms, including: ?Medicines to shrink the prostate. ?Medicines to relax the muscle of the prostate. Surgery in severe cases. Surgery may include: ?Prostatectomy. In this procedure, the prostate tissue is removed completely through an open incision or with a laparoscope or robotics. ?Transurethral resection of the prostate (TURP). In this procedure, a tool is inserted through the opening at the tip of the penis (urethra). It is used to cut away tissue of the inner core of the prostate. The pieces are removed through the same opening of the penis. This removes the blockage. ?Transurethral incision (TUIP). In this procedure, small cuts are made in the prostate. This lessens the prostate's pressure on the urethra. ?Transurethral microwave thermotherapy (TUMT). This procedure uses microwaves to create heat. The heat destroys and removes a small amount of prostate tissue. ?Transurethral needle ablation (TUNA). This procedure uses radio frequencies to destroy and remove a small amount of prostate tissue. ?Interstitial laser coagulation (ILC). This procedure uses a laser to destroy and remove a small amount of prostate tissue. ?Transurethral electrovaporization (TUVP). This procedure uses electrodes to destroy and remove a small amount of prostate tissue. ?Prostatic urethral lift. This procedure inserts an implant to push the lobes of the prostate away from the urethra. Follow these instructions at home: Take kkxq-fao-laamaky and prescription medicines only as told by your health care provider. Monitor your symptoms for any changes. Contact your health care provider with any changes. Avoid drinking large amounts of liquid before going to bed or out in public. Avoid or reduce how much caffeine or alcohol you drink. Give yourself time when you urinate. Keep all follow-up visits as told by your health care provider. This is important. Contact a health care provider if: You have unexplained back pain. Your symptoms do not get better with treatment. You develop side effects from the medicine you are taking. Your urine becomes very dark or has a bad smell. Your lower abdomen becomes distended and you have trouble passing your urine. Get help right away if: You have a fever or chills. You suddenly cannot urinate. You feel lightheaded, or very dizzy, or you faint. There are large amounts of blood or clots in the urine. Your urinary problems become hard to manage. You develop moderate to severe low back or flank pain. The flank is the side of your body between the ribs and the hip. These symptoms may represent a serious problem that is an emergency. Do not wait to see if the symptoms will go away. Get medical help right away. Call your local emergency services (911 in the [place] Do not drive yourself to the hospital. Summary Benign prostatic hyperplasia (BPH) is an enlarged prostate that is caused by the normal aging process and not by cancer. An enlarged prostate can press on the urethra. This can make it hard to pass urine. This condition is part of a normal aging process and is more likely to develop in men over the age of 50 years. Get help right away if you suddenly cannot urinate. This information is not intended to replace advice given to you by your health care provider. Make sure you discuss any questions you have with your health care provider. Document Released: 05/09/2006 Document Revised: 04/03/2019 Document Reviewed: 06/13/2017 [employer] Online Backup Patient Education 2020 [employer]. Follow Up Care 11/24/2021 14:03:00 With:Isa MULLER MD, URL Address: [address] [place], [place] [id number]- When: Unknown Comments:Will schedule TRUS/BX, 2 week fu with Bone scan, Lupron.Zarco removal 12/07/21 [facility] Evaluation + Plan note Future Appointments Appointment Date:12/02/2021 07:30:00 AM Scheduled Provider:Isa MULLER MD Location:[facility] Appointment Type:URO Procedure 30 min Appointment Date:04/05/2022 08:45:00 AM Scheduled Provider:Isa MULLER MD Location:[facility] Appointment Type:URO Office Visit [facility] Evaluation + Plan note Future Appointments Appointment Date:12/14/2021 09:45:00 AM Scheduled Provider:Isa MULLER MD Location:[facility] Appointment Type:URO Office Visit Diagnostic Tests Pending * Prostate Histology ([facility]) 12/02/21 [facility] Evaluation + Plan note Future Appointments Appointment Date:12/14/2021 09:45:00 AM Scheduled Provider:Isa MULLER MD Location:[facility] Appointment Type:URO Office Visit [facility] evaluation + Plan note Future Appointments Appointment Date:12/18/2021 09:45:00 AM Scheduled Provider: Location:[facility] Appointment Type:URO Nurse Visit Appointment Date:06/04/2022 09:30:00 AM Scheduled Provider:Isa MULLER MD Location:[facility] Appointment Type:URO Office Visit Diagnostic Tests Pending * PSA Total 12/14/21 [facility] evaluation + Plan note Future Appointments Appointment Date:06/04/2022 09:30:00 AM Scheduled Provider:Isa MULLER MD Location:[facility] Appointment Type:URO Office Visit [facility] evaluation + Plan note Future Appointments Appointment Date:11/26/2022 09:30:00 AM Scheduled Provider:Isa MULLER MD Location:[facility] Appointment Type:URO Office Visit Diagnostic Tests Pending * PSA Total 09/20/22 [facility] evaluation + Plan note Future Appointments Appointment Date:12/09/2022 08:00:00 AM Scheduled Provider:Chayito Duarte MD Location:[facility] Appointment Type:FM Open Appointment Date:05/27/2023 10:15:00 AM Scheduled Provider:[facility] Type[facility] Office Visit Diagnostic Tests Pending * PSA Total 11/29/22 [facility] evalpebbwe + Plan note Future Appointments Appointment Date:06/13/2023 09:15:00 AM Scheduled Provider:Chayito Duarte MD Location:[facility] Appointment Type:FM Open Appointment Date:11/14/2023 10:45:00 AM Scheduled Provider:Isa [facility]ULLER MD [facility] App[facility] Type:URO Office Visit Appointment Date:01/09/2024 09:30:00 AM Scheduled Provider: Location:[facility] Appointment Type:FM Medicare Wellness Subsequent [facility] evaluation note* Diagnosis Prostate cancer (HCC)- Primary Malignant neoplasm of prostate 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 [facility] Prostate cancer (HCC)- Primary Malignant neoplasm of prostate 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 [facility] Diagnosis Prostate cancer (HCC)- Primary Malignant neoplasm of prostate [facility] Diagnosis Prostate cancer (HCC)- Primary Malignant neoplasm of prostate [facility] Diagnosis Prostate cancer (HCC)- Primary Malignant neoplasm of prostate 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 [facility] Diagnosis Prostate cancer (HCC)- Primary Malignant neoplasm of prostate [facility] Diagnosis Malignant neoplasm of prostate (HCC)- Primary Malignant neoplasm of prostate Secondary malignant neoplasm of bone (HCC) Secondary malignant neoplasm of bone and bone marrow [facility] Diagnosis Prostate cancer (HCC)- Primary Malignant neoplasm of prostate 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 [facility] Diagnosis Prostate cancer (HCC)- Primary Malignant neoplasm of prostate 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 [facility] Diagnosis Prostate cancer (HCC)- Primary Malignant neoplasm of prostate [facility] Diagnosis Prostate cancer (HCC)- Primary Malignant neoplasm of prostate [facility] Diagnosis Prostate cancer (HCC)- Primary Malignant neoplasm of prostate Secondary malignant neoplasm of bone (HCC) Secondary malignant neoplasm of bone and bone marrow [facility] Diagnosis Prostate cancer (HCC)- Primary Malignant neoplasm of prostate [facility] Diagnosis Prostate cancer (HCC)- Primary Malignant neoplasm of prostate 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 [facility] Diagnosis Prostate cancer (HCC)- Primary Malignant neoplasm of prostate 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 [facility] Diagnosis Prostate cancer (HCC)- Primary Malignant neoplasm of prostate Secondary malignant neoplasm of bone (HCC) Secondary malignant neoplasm of bone and bone marrow [facility] Diagnosis Malignant neoplasm of prostate (HCC)- Primary Malignant neoplasm of prostate [facility] Diagnosis Prostate cancer (HCC)- Primary Malignant neoplasm of prostate 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 Anemia, unspecified type [facility] Diagnosis Prostate cancer (HCC)- Primary Malignant neoplasm of prostate [facility] Diagnosis Prostate cancer (HCC)- Primary Malignant neoplasm of prostate 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 Cancer related pain Neoplasm related pain (acute) (chronic) [facility] Diagnosis Prostate cancer (HCC)- Primary Malignant neoplasm of prostate [facility] Diagnosis Prostate cancer (HCC)- Primary Malignant neoplasm of prostate [facility] Diagnosis 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 Prostate cancer (HCC) Malignant neoplasm of prostate [facility] Diagnosis Prostate cancer (HCC) Malignant neoplasm of prostate [facility] Diagnosis 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 [facility] Diagnosis Prostate cancer (HCC)- Primary Malignant neoplasm of prostate Platelets decreased (HCC) Thrombocytopenia, unspecified 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 [facility] Diagnosis Prostate cancer (HCC)- Primary Malignant neoplasm of prostate 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 [facility] Diagnosis 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 [facility] Diagnosis 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 [facility] Diagnosis Prostate cancer (HCC)- Primary Malignant neoplasm of prostate 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 [facility] Diagnosis Prostate cancer (HCC)- Primary Malignant neoplasm of prostate 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 Neoplasm related pain (acute) (chronic) [facility] Diagnosis 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 [facility] Diagnosis Prostate cancer (HCC)- Primary Malignant neoplasm of prostate 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 Left buttock pain Mylagia and myositis, unspecified Cancer related pain Neoplasm related pain (acute) (chronic) Secondary malignant neoplasm of bone (HCC) Secondary malignant neoplasm of bone and bone marrow Anemia, unspecified type [facility] Diagnosis Prostate cancer (HCC) Malignant neoplasm of prostate [facility] Diagnosis Neoplasm related pain (acute) (chronic) [facility]* Diagnosis 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 [facility] Diagnosis Onset Date Resolution Status Prostate cancer metastatic to bone acute Seizure-like activity acute TIA (transient ischemic attack) acute [facility] Work Phone: Evaluation note* Diagnosis 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 [facility] Diagnosis Prostate cancer (HCC)- Primary Malignant neoplasm of prostate Secondary malignant neoplasm of bone (HCC) Secondary malignant neoplasm of bone and bone marrow Cancer related pain Neoplasm related pain (acute) (chronic) 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 [facility] Diagnosis Sensorineural hearing loss (SNHL) of both ears- Primary [facility] Diagnosis Prostate cancer (HCC)- Primary Malignant neoplasm of prostate 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 [facility]* Diagnosis Prostate cancer (HCC)- Primary Malignant neoplasm of prostate Secondary malignant neoplasm of bone (HCC) 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 Neoplasm related pain (acute) (chronic) [facility] Diagnosis Prostate cancer (HCC)- Primary Malignant neoplasm of prostate [facility] Diagnosis Prostate cancer (HCC) Malignant neoplasm of prostate [facility]* Diagnosis Prostate cancer (HCC)- Primary Malignant neoplasm of prostate 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 [facility]* Diagnosis Prostate cancer (HCC)- Primary Malignant neoplasm of prostate 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 Cancer related pain Neoplasm related pain (acute) (chronic) Seizure disorder (HCC) Unspecified epilepsy without mention of intractable epilepsy [facility] Diagnosis 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 [facility] Diagnosis Prostate cancer (HCC)- Primary Malignant neoplasm of prostate 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 Cancer related pain Neoplasm related pain (acute) (chronic) Seizure disorder (HCC) Unspecified epilepsy without mention of intractable epilepsy [facility] Diagnosis Prostate cancer (HCC)- Primary Malignant neoplasm of prostate 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 Cancer related pain Neoplasm related pain (acute) (chronic) 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 Seizure disorder (HCC) Unspecified epilepsy without mention of intractable epilepsy [facility]* Diagnosis Prostate cancer (HCC)- Primary Malignant neoplasm of prostate [facility] Narrative No data available for this section [facility] Hospital Discharge instructions No data available for this section [facility] Hospital Discharge instructions Additional Instructions No driving, tub bathing alone, swimming alone until seizure free for 6 months and until cleared by neurology.[facility] Work Phone: Progress note No data available for this section [facility] Reason for referral (narrative) Referred by: Isa MULLER MD [facility] reason for referral (narrative)* Diagnostic Procedure Only (Routine) - Pending Review Specialty Diagnoses / Procedures Referred By Lexy medina Referred To Contact MOLECULAR & FUNCTIONAL IMAGING Diagnoses Prostate cancer (HCC) Procedures NM PET/CT PROSTATE WHOLE BODY IMAGING PET IMAGING CT ATTENUATION SKULL BASE MID-THIGH F-18 PSMA Juancho Hendrix MD [address] [place] [address] [place] [address] Molecular & Functional Imaging [address] [place] [address] Referral ID Status Reason Start Date Expiration Date Visits Requested Visits Authorized [id number] Pending Review Auto-Generat ed Referral 10/19/2022 11/18/2023 1 1 [facility] for referral (narrative)* Diagnostic Procedure Only (Routine) - Pending Review Specialty Diagnoses / Procedures Referred By Contac t Referred To Contact XR IMAGING Diagnoses Prostate cancer (HCC) Malignant neoplasm metastatic to bone (HCC) Left buttock pain Procedures XR FEMUR GENERAL 2V AP/LAT LEFT RADIOLOGIC EXAMINATION FEMUR MINIMUM 2 VIEWS Rafaela Morocho PA-C [address] [place] [id number] Xr Imaging [id number] Referral ID Status Reason Start Date Expiration Date Visits Requested Visits Authorized [id number] Pending Review Auto-Generat ed Referral 04/26/2023 05/25/2024 1 1 * Consult, Test, Treat (Routine) - Authorized Specialty Diagnoses / Procedures Referred By Contac t Referred To Contact Diagnoses Prostate cancer (HCC) Malignant neoplasm metastatic to bone (HCC) Left buttock pain Cancer related pain Procedures CONSULT TO PALLIATIVE CARE OFFICE/OUTPATIENT [facility] 60-74 MINUTES Rafaela Morocho PA-C [address] [place] [address] Referral ID Status Reason Start Date Expiration Date Visits Requested Visits Authorized [id number] Authorized PCP Requested Referral 04/25/2024 1 1 * Diagnostic Procedure Only (Routine) - Pending Review Specialty Diagnoses / Procedures Referred By Contac t Referred To Contact XR IMAGING Diagnoses Prostate cancer (HCC) Malignant neoplasm metastatic to bone (HCC) Left buttock pain Procedures XR SACRUM/COCCYX 3V AP/LAT RADEX SACRUM & COCCYX MINIMUM 2 VIEWS Rafaela Morocho PA-C [address] [place] [id number] Xr Imaging [id number] Referral ID Status Reason Start Date Expiration Date Visits Requested Visits Authorized [id number] Pending Review Auto-Generat ed Referral 04/26/2023 05/25/2024 1 1 * Diagnostic Procedure Only (Routine) - Pending Review Specialty Diagnoses / Procedures Referred By Contac t Referred To Contact XR IMAGING Diagnoses Prostate cancer (HCC) Malignant neoplasm metastatic to bone (HCC) Left buttock pain Procedures XR HIP GENERAL 3V PELV/AP/LAT LEFT RADEX HIP UNILATERAL WITH PELVIS 2-3 VIEWS Rafaela Morocho PA-C [address] [place] [address] Xr Imaging [place] [address] Referral ID Status Reason Start Date Expiration Date Visits Requested Visits Authorized [id number] Pending Review Auto-Generat ed Referral 04/26/2023 05/25/2024 1 1 [facility] for referral (narrative)* Diagnostic Procedure Only (Routine) - Authorized Specialty Diagnoses / Procedures Referred By Contac t Referred To Contact MOLECULAR & FUNCTIONAL IMAGING Diagnoses Prostate cancer (HCC) Procedures NM THERAPY SCARLETT-177 PSMA RP THERAPY INTRAVENOUS ADMINISTRATION LUTETIUM SCARLETT 177 VIPIVOTIDE TETRAXETAN, Karma Hairston MD [address] [place] [address] Molecular & Functional Imaging [address] [place] [address] Referral ID Status Reason Start Date Expiration Date Visits Requested Visits Authorized [id number] Authorized Auto-Generat ed Referral 04/27/2023 09/23/2023 4 4 [facility] for referral (narrative)* Diagnostic Procedure Only (Routine) - Authorized Specialty Diagnoses / Procedures Referred By Contac t Referred To Contact MOLECULAR & FUNCTIONAL IMAGING Diagnoses Prostate cancer (HCC) Procedures NM THERAPY SCARLETT-177 PSMA RP THERAPY INTRAVENOUS ADMINISTRATION LUTETIUM SCARLETT 177 VIPIVOTIDE TETRAXETAN, Karma Hairston MD [address] [place] [address] Molecular & Functional Imaging [address] [place] [address] Referral ID Status Reason Start Date Expiration Date Visits Requested Visits Authorized [id number] Authorized Auto-Generat ed Referral 04/27/2023 09/23/2023 4 4 [facility] for referral (narrative)* Diagnostic Procedure Only (Routine) - Pending Review Specialty Diagnoses / Procedures Referred By Contac t Referred To Contact MOLECULAR & FUNCTIONAL IMAGING Diagnoses Prostate cancer (HCC) Procedures NM PET/CT PROSTATE WHOLE BODY IMAGING PET IMAGING CT ATTENUATION SKULL BASE MID-THIGH Keshia Velazquez APRN.CNP [address] [place] [place] [id number] Molecular & Functional Imaging [address] [place] [address] Referral ID Status Reason Start Date Expiration Date Visits Requested Visits Authorized [id number] Pending Review Auto-Generat ed Referral 09/09/2023 10/08/2024 1 1 [facility] for visit Narrative* Diagnostic Procedure Only (Routine) - Authorized Specialty Diagnoses / Procedures Referred By Contac t Referred To Contact MOLECULAR & FUNCTIONAL IMAGING Diagnoses Prostate cancer (HCC) Procedures NM THERAPY SCARLETT-177 PSMA RP THERAPY INTRAVENOUS ADMINISTRATION LUTETIUM SCARLETT 177 VIPIVOTIDE TETRAXETAN, THERAPEUTIC Karma Oconnor MD [address] [place] [address] Molecular & Functional Imaging [address] [place] [address] Referral ID Status Reason Start Date Expiration Date Visits Requested Visits Authorized [id number] Authorized Auto-Generat ed Referral 04/27/2023 09/23/2023 4 4 [facility] Summary Purpose Family History No Family History Records FoundNo Family History Records Found No data available for this section No Family History Records FoundNo Family History Records FoundNo Family History Records FoundNo Family History Records Found Advance Directives No Advanced Directives Records Found Advance Directive Response Recorded Date/ Time Advance Directives No June 06, 2023 4:11pm Medications Administered Section Inactive Administered Medications - up to 3 most recent administrations Medication Order MAR Action Action Date Dose Rate Site denosumab 120 mg injection (XGEVA) 120 mg, SUBCUTANEOUS, ONCE, 1 dose, On Tue01/07/22 at 1030, REFRIGERATE Given 01/07/2022 10:25 AM EDT 120 mg Arm, Right Inactive Administered Medications - up to 3 most recent administrations Medication Order MAR Action Action Date Dose Rate Site denosumab 120 mg injection (XGEVA) 120 mg, SUBCUTANEOUS, ONCE, 1 dose, On Tue04/08/22 at 1500, REFRIGERATE Given 04/08/2022 3:16 PM EST 120 mg Arm, Left Inactive Administered Medications - up to 3 most recent administrations Medication Order MAR Action Action Date Dose Rate Site denosumab 120 mg injection (XGEVA) 120 mg, SUBCUTANEOUS, ONCE, 1 dose, On Tue07/08/22 at 1430, REFRIGERATE Given 07/08/2022 3:12 PM EST 120 mg Arm, Right Inactive Administered Medications - up to 3 most recent administrations Medication Order MAR Action Action Date Dose Rate Site denosumab 120 mg injection (XGEVA) 120 mg, SUBCUTANEOUS, ONCE, 1 dose, On Tue01/18/23 at 1430, REFRIGERATE Given 01/18/2023 2:27 PM EDT 120 mg Arm, Left Inactive Administered Medications - up to 3 most recent administrations Medication Order MAR Action Action Date Dose Rate Site dexAMETHasone 10 mg in NaCl 0.9% 50 mL (DECADRON) 10 mg, INTRAVENOUS, ONCE, 1 dose, On Pilar 02/10/23 at 1200, Administer 30 minutes prior to infusion. Refrigerate. New Bag/Syringe/Bottle 02/10/2023 12:11 PM EDT 10 mg diphenhydrAMINE 25 mg injection (BENADRYL) 25 mg, INTRAVENOUS, ONCE, 1 dose, On Pilar 02/10/23 at 1200, Give prior to chemotherapy. Given 02/10/2023 12:08 PM EDT 25 mg DOCEtaxel 54.6 mg in NaCl 0.9% 115.46 mL (TAXOTERE) 54.6 mg (30 mg/m2 1.82 m2 Treatment Plan BSA from Recorded weight), INTRAVENOUS, Administer over 1 Hours, ONCE, 1 dose, On Pilar 02/10/23 at 1200, ANTINEOPLASTIC IRRITANT NON-PVC container. Infuse via Non-DEHP set. Approx Total Volume: _mL EXP:_1215 02/12/23 Hazardous Chemotherapy Drug: Use appropriate PPE. Antineoplastic Irritant. New Bag/Syringe/Bottle 02/10/2023 12:44 PM EDT 54.6 mg famotidine 20 mg injection (PEPCID) 20 mg, INTRAVENOUS, ONCE, 1 dose, On Pilar 02/10/23 at 1200, Give prior to chemotherapy. REFRIGERATE Given 02/10/2023 12:07 PM EDT 20 mg Inactive Administered Medications - up to 3 most recent administrations Medication Order MAR Action Action Date Dose Rate Site dexAMETHasone 10 mg in NaCl 0.9% 50 mL (DECADRON) 10 mg, INTRAVENOUS, ONCE, 1 dose, On Pilar 03/03/23 at 1400, Administer 30 minutes prior to infusion. Refrigerate. New Bag/Syringe/Bottle 03/03/2023 2:08 PM EDT 10 mg diphenhydrAMINE 25 mg injection (BENADRYL) 25 mg, INTRAVENOUS, ONCE, 1 dose, On Pilar 03/03/23 at 1400, Give prior to chemotherapy. Given 03/03/2023 2:06 PM EDT 25 mg DOCEtaxel 53.7 mg in NaCl 0.9% 115.37 mL (TAXOTERE) 53.7 mg (30 mg/m2 1.79 m2 Treatment Plan BSA from Recorded weight), INTRAVENOUS, Administer over 1 Hours, ONCE, 1 dose, On Pilar 03/03/23 at 1400, ANTINEOPLASTIC IRRITANT NON-PVC container. Infuse via Non-DEHP set. Approx Total Volume EXP:03/05/23 1400 RT Hazardous Chemotherapy Drug: Use appropriate PPE. Antineoplastic Irritant. New Bag/Syringe/Bottle 03/03/2023 2:27 PM EDT 53.7 mg famotidine 20 mg injection (PEPCID) 20 mg, INTRAVENOUS, ONCE, 1 dose, On Pilar 03/03/23 at 1400, Give prior to chemotherapy. REFRIGERATE Given 03/03/2023 2:04 PM EDT 20 mg ondansetron (PF) 8 mg injection (ZOFRAN) 8 mg, INTRAVENOUS, ONCE, 1 dose, On Pilar 03/03/23 at 1430, Administer 30 minutes prior to infusion. Given 03/03/2023 2:25 PM EDT 8 mg Inactive Administered Medications - up to 3 most recent administrations Medication Order MAR Action Action Date Dose Rate Site dexAMETHasone 10 mg in NaCl 0.9% 50 mL (DECADRON) 10 mg, INTRAVENOUS, ONCE, 1 dose, On Pilar 03/17/23 at 1430, Administer 30 minutes prior to infusion. Refrigerate. New Bag/Syringe/Bottle 03/17/2023 2:33 PM EDT 10 mg diphenhydrAMINE 25 mg injection (BENADRYL) 25 mg, INTRAVENOUS, ONCE, 1 dose, On Pilar 03/17/23 at 1430, Give prior to chemotherapy. Given 03/17/2023 2:33 PM EDT 25 mg DOCEtaxel 53.7 mg in NaCl 0.9% 115.37 mL (TAXOTERE) 53.7 mg (30 mg/m2 1.79 m2 Treatment Plan BSA from Recorded weight), INTRAVENOUS, Administer over 1 Hours, ONCE, 1 dose, On Pilar 03/17/23 at 1430, ANTINEOPLASTIC IRRITANT NON-PVC container. Infuse via Non-DEHP set. Approx Total Volume: mL EXP:03/19/23 1420 RT Hazardous Chemotherapy Drug: Use appropriate PPE. Antineoplastic Irritant. New Bag/Syringe/Bottle 03/17/2023 2:59 PM EDT 53.7 mg famotidine 20 mg injection (PEPCID) 20 mg, INTRAVENOUS, ONCE, 1 dose, On Pilar 03/17/23 at 1430, Give prior to chemotherapy. REFRIGERATE Given 03/17/2023 2:33 PM EDT 20 mg ondansetron (PF) 8 mg injection (ZOFRAN) 8 mg, INTRAVENOUS, ONCE, 1 dose, On Pilar 03/17/23 at 1430, Administer 30 minutes prior to infusion. Given 03/17/2023 2:33 PM EDT 8 mg Inactive Administered Medications - up to 3 most recent administrations Medication Order MAR Action Action Date Dose Rate Site epoetin gene-epbx 20,000 Units injection (RETACRIT) 20,000 Units, SUBCUTANEOUS, ONCE, 1 dose, On Pilar 03/31/23 at 1330, Refrigerate - Protect From Light - Do Not Shake, Medication Substitution: [facility] preferred product has been replaced with the insurance mandated product Given 03/31/2023 1:36 PM EST 20,000 Units Arm, Right Inactive Administered Medications - up to 3 most recent administrations Medication Order MAR Action Action Date Dose Rate Site epoetin gene-epbx 20,000 Units injection (RETACRIT) 20,000 Units, SUBCUTANEOUS, ONCE, 1 dose, On Pilar 04/07/23 at 1400, Refrigerate - Protect From Light - Do Not Shake, Medication Substitution: [facility] preferred product has been replaced with the insurance mandated product Given 04/07/2023 2:06 PM EST 20,000 Units Arm, Left Inactive Administered Medications - up to 3 most recent administrations Medication Order MAR Action Action Date Dose Rate Site epoetin gene-epbx 40,000 Units injection (RETACRIT) 40,000 Units, SUBCUTANEOUS, ONCE, 1 dose, On Tue04/13/23 at 1430, Refrigerate - Protect From Light - Do Not Shake, Medication Substitution: [facility] preferred product has been replaced with the insurance mandated product Given 04/13/2023 2:32 PM EST 40,000 Units Arm, Left Inactive Administered Medications - up to 3 most recent administrations Medication Order MAR Action Action Date Dose Rate Site denosumab 120 mg injection (XGEVA) 120 mg, SUBCUTANEOUS, ONCE, 1 dose, On Pilar 04/21/23 at 1000, REFRIGERATE Given 04/21/2023 10:14 AM EST 120 mg Arm, Right epoetin gene-epbx 40,000 Units injection (RETACRIT) 40,000 Units, SUBCUTANEOUS, ONCE, 1 dose, On Pilar 04/21/23 at 1000, Refrigerate - Protect From Light - Do Not Shake, Medication Substitution: [facility] preferred product has been replaced with the insurance mandated product Given 04/21/2023 10:14 AM EST 40,000 Units Arm, Left Reason for Referral Specialty Diagnoses / Procedures Referred By Lexy medina Referred To Contact Juancho Aldridge MD [address] [place] [address] [place] [address] Referral ID Status Reason Start Date Expiration Date V isits Requested Visits Authorized [id number] Authorized 1 1 Chief Complaint and Reason for Visit Chief Complaint R/O TIA Reason for Visit Prostate cancer meta static to bone Seizure-like activity TIA (transient ischemic attack) Additional Source Comments (unrecognized sect ion and content) No Status Records FoundNo Status Records FoundNo Status Records FoundNo Status Records FoundNo Status Records FoundNo Status Records Found INFORMATION SOURCE (unrecogn ized section and content) DATE CREATED AUTHOR 04/23/2021 [facility] DATE CREATED AUTHOR AUTHOR'S ORGANIZ ATION 07/21/2022 [facility] DATE CREATED AUTHOR AUTHOR'S ORGANIZ ATION 06/15/2023 [facility] DATE CREATED AUTHOR AUTHOR'S ORGANIZ ATION 06/30/2023 [facility] EPIC DATE CREATED AUTHOR AUTHOR'S ORGANIZ ATION 09/10/2023 [facility] DATE CREATED AUTHOR AUTHOR'S ORGANIZ ATION 09/10/2023 Otf Agrawal [facility] Care Team (unrecognized sect ion and content) Net Washer Relationship Specialty Start Date End Date Nina Smith MD [address] [place] [address] PCP - General Family Practice 12/24/21 Net Washer Relationship Specialty Start Date End Date Nina Smith MD [address] [place] [address] PCP - General Family Practice 12/24/21 Juancho Aldridge MD [address] [place] [address] Physician Hematology/Oncology 01/05/22 Brinda Delatorre, CYCLING INSTRUCTOR.PLASTER MACHINE TENDER [address] [place] [address] Nurse Practitioner Hematology/Oncology 01/05/22 Kelly Sevilla, CLAY [address] [place] [address] Specialty Bindery Machine Tender Hematology/Oncology 01/05/22 Net Washer Relationship Specialty Start Date End Date Nina Smith MD [address] [place] [address] PCP - General Family Practice 12/24/21 Juancho Aldridge MD [address] [place] [address] Physician Hematology/Oncology 01/05/22 Brinda Delatorre, CYCLING INSTRUCTOR.PLASTER MACHINE TENDER [address] [place] [address] Nurse Practitioner Hematology/Oncology 01/05/22 Kelly Sevilla, RN [address] [place] [address] Specialty Bindery Machine Tender Hematology/Oncology 01/05/22 Net Washer Relationship Specialty Start Date End Date Nina Smith MD [address] [place] [address] PCP - General Family Practice 12/24/21 Juancho Aldridge MD [address] [place] [address] Physician Hematology/Oncology 01/05/22 Brinda Delatorre, CYCLING INSTRUCTOR.PLASTER MACHINE TENDER [address] [place] [address] Nurse Practitioner Hematology/Oncology 01/05/22 Kelly Sevilla, CLAY [address] [place] [address] Specialty Bindery Machine Tender Hematology/Oncology 01/05/22 Net Washer Relationship Specialty Start Date End Date Nina Smith MD [address] [place] [address] PCP - General Family Medicine 12/24/21 Juancho Aldridge MD [address] [place] [address] Physician Hematology/Oncology 01/05/22 Brinda Delatorre, CYCLING INSTRUCTOR.PLASTER MACHINE TENDER [address] [place] [address] Nurse Practitioner Hematology/Oncology 01/05/22 Kelly Sevilla, RN [address] [place] [address] Specialty Bindery Machine Tender Hematology/Oncology 01/05/22 Net Washer Relationship Specialty Start Date End Date Nina Smith MD [address] [place] [address] PCP - General Family Medicine 12/24/21 Juancho Aldridge MD [address] [place] [address] Physician Hematology/Oncology 01/05/22 Brinda Delatorre, CYCLING INSTRUCTOR.PLASTER MACHINE TENDER [address] [place] [address] Nurse Practitioner Hematology/Oncology 01/05/22 Kelly Sevilla, RN [address] [place] [address] Specialty Bindery Machine Tender Hematology/Oncology 01/05/22 Net Washer Relationship Specialty Start Date End Date Nina Smith MD [address] [place] [address] PCP - General Family Medicine 12/24/21 Juancho Aldridge MD [address] [place] [address] Physician Hematology/Oncology 01/05/22 Brinda Delatorre, CYCLING INSTRUCTOR.PLASTER MACHINE TENDER [address] [place] [address] Nurse Practitioner Hematology/Oncology 01/05/22 Kelly Sevilla, RN [address] [place] [address] Specialty Bindery Machine Tender Hematology/Oncology 01/05/22 Net Washer Relationship Specialty Start Date End Date Nina Smith MD [address] [place] [address] PCP - General Family Medicine 12/24/21 Juancho Aldridge MD [address] [place] [address] Physician Hematology/Oncology 01/05/22 Brinda Delatorre, CYCLING INSTRUCTOR.PLASTER MACHINE TENDER [address] [place] [address] Nurse Practitioner Hematology/Oncology 01/05/22 Kelly Sevilla, RN [address] [place] [address] Specialty Bindery Machine Tender Hematology/Oncology 01/05/22 Net Washer Relationship Specialty Start Date End Date Nina Smith MD [address] [place] [address] PCP - General Family Medicine 12/24/21 Juancho Aldridge MD [address] [place] [address] Physician Hematology/Oncology 01/05/22 Brinda Delatorre, CYCLING INSTRUCTOR.PLASTER MACHINE TENDER [address] [place] [address] Nurse Practitioner Hematology/Oncology 01/05/22 Kelly Sevilla, RN [address] [place] [address] Specialty Bindery Machine Tender Hematology/Oncology 01/05/22 Net Washer Relationship Specialty Start Date End Date Nina Smith MD [address] [place] [address] PCP - General Family Medicine 12/24/21 Juancho Aldridge MD [address] [place] [address] Physician Hematology/Oncology 01/05/22 Brinda Delatorre, CYCLING INSTRUCTOR.PLASTER MACHINE TENDER [address] [place] [address] Nurse Practitioner Hematology/Oncology 01/05/22 Kelly Sevilla, CLAY [address] [place] [address] Specialty Bindery Machine Tender Hematology/Oncology 01/05/22 Net Washer Relationship Specialty Start Date End Date Nina Smith MD [address] [place] [address] PCP - General Family Medicine 12/24/21 Juancho Aldridge MD [address] [place] [address] Physician Hematology/Oncology 01/05/22 Brinda Delatorre, CYCLING INSTRUCTOR.PLASTER MACHINE TENDER [address] [place] [address] Nurse Practitioner Hematology/Oncology 01/05/22 Kelly Sevilla, RN [address] [place] [address] Specialty Bindery Machine Tender Hematology/Oncology 01/05/22 Net Washer Relationship Specialty Start Date End Date Nina Smith MD [address] [place] [address] PCP - General Family Medicine 12/24/21 Juancho Aldridge MD [address] [place] [address] Physician Hematology/Oncology 01/05/22 Brinda Delatorre, CYCLING INSTRUCTOR.PLASTER MACHINE TENDER [address] [place] [address] Nurse Practitioner Hematology/Oncology 01/05/22 Kelly Sevilla, CLAY [address] [place] [address] Specialty Bindery Machine Tender Hematology/Oncology 01/05/22 Net Washer Relationship Specialty Start Date End Date Nina Smith MD [address] [place] [address] PCP - General Family Medicine 12/24/21 Juancho Aldridge MD [address] [place] [address] Physician Hematology/Oncology 01/05/22 Brinda Delatorre, CYCLING INSTRUCTOR.PLASTER MACHINE TENDER [address] [place] [address] Nurse Practitioner Hematology/Oncology 01/05/22 Kelly Sevilla, CLAY [address] [place] [address] Specialty Bindery Machine Tender Hematology/Oncology 01/05/22 Net Washer Relationship Specialty Start Date End Date Nina Smith MD [address] [place] [address] PCP - General Family Medicine 12/24/21 Juancho Aldridge MD [address] [place] [address] Physician Hematology/Oncology 01/05/22 Brinda Delatorre, CYCLING INSTRUCTOR.PLASTER MACHINE TENDER [address] [place] [address] Nurse Practitioner Hematology/Oncology 01/05/22 Kelly Sevilla, RN [address] [place] [address] Specialty Bindery Machine Tender Hematology/Oncology 01/05/22 Net Washer Relationship Specialty Start Date End Date Nina Smith MD [address] [place] [address] PCP - General Family Medicine 12/24/21 Juancho Aldridge MD [address] [place] [address] Physician Hematology/Oncology 01/05/22 Brinda Delatorre, CYCLING INSTRUCTOR.PLASTER MACHINE TENDER [address] [place] [address] Nurse Practitioner Hematology/Oncology 01/05/22 Kelly Sevilla, CLAY [address] [place] [address] Specialty Bindery Machine Tender Hematology/Oncology 01/05/22 Net Washer Relationship Specialty Start Date End Date Nina Smith MD [address] [place] [address] PCP - General Family Medicine 12/24/21 Juancho Aldridge MD [address] [place] [address] Physician Hematology/Oncology 01/05/22 Brinda Delatorre, CYCLING INSTRUCTOR.PLASTER MACHINE TENDER [address] [place] [address] Nurse Practitioner Hematology/Oncology 01/05/22 Kelly Sevilla, CLAY [address] [place] [address] Specialty Bindery Machine Tender Hematology/Oncology 01/05/22 Net Washer Relationship Specialty Start Date End Date Nina Smith MD [address] [place] [address] PCP - General Family Medicine 12/24/21 Juancho Aldridge MD [address] [place] [address] Physician Hematology/Oncology 01/05/22 Brinda Delatorre, CYCLING INSTRUCTOR.PLASTER MACHINE TENDER [address] [place] [address] Nurse Practitioner Hematology/Oncology 01/05/22 Kelly Sevilla, CLAY [address] [place] [address] Specialty Bindery Machine Tender Hematology/Oncology 01/05/22 Net Washer Relationship Specialty Start Date End Date Nina Smith MD [address] [place] [address] PCP - General Family Medicine 12/24/21 Juancho Aldridge MD [address] [place] [address] Physician Hematology/Oncology 01/05/22 Brinda Delatorre, CYCLING INSTRUCTOR.PLASTER MACHINE TENDER [address] [place] [address] Nurse Practitioner Hematology/Oncology 01/05/22 Kelly Sevilla, RN [address] [place] [address] Specialty Bindery Machine Tender Hematology/Oncology 01/05/22 Net Washer Relationship Specialty Start Date End Date Nina Smith MD [address] [place] [address] PCP - General Family Medicine 12/24/21 10/25/22 Juancho Aldridge MD [address] [place] [address] Physician Hematology/Oncology 01/05/22 Brinda Delatorre, CYCLING INSTRUCTOR.[facility] [address] [place] [address] Nurse Practitioner Hematology/Oncology 01/05/22 Kelly Sevilla, RN [address] [place] [address] Specialty Bindery Machine Tender Hematology/Oncology 01/05/22 Net Washer Relationship Specialty Start Date End Date Juancho Aldridge MD [address] [place] [address] Physician Hematology/Oncology 01/05/22 Brinda Delatorre, CYCLING INSTRUCTOR.PLASTER MACHINE TENDER [address] [place] [address] Nurse Practitioner Hematology/Oncology 01/05/22 Kelly Sevilla, RN [address] [place] [address] Specialty Bindery Machine Tender Hematology/Oncology 01/05/22 Net Washer Relationship Specialty Start Date End Date Juancho Aldridge MD [address] [place] [address] Physician Hematology/Oncology 01/05/22 Brinda Delatorre, CYCLING INSTRUCTOR.PLASTER MACHINE TENDER [address] [place] [address] Nurse Practitioner Hematology/Oncology 01/05/22 Kelly Sevilla, RN [address] [place] [address] Specialty Bindery Machine Tender Hematology/Oncology 01/05/22 Net Washer Relationship Specialty Start Date End Date Nina Smith MD [address] [facility] [place] [address] PCP - General Family Medicine 12/24/21 10/25/22 Junacho Aldridge MD [address] [place], [place] [address] Physician Hematology/Oncology 01/05/22 Brinda Delatorre, CYCLING INSTRUCTOR.PLASTER MACHINE TENDER [address] [place] [address] Nurse Practitioner Hematology/Oncology 01/05/22 Kelly Sevilla, RN [address] [place], [place] [address] Specialty Bindery Machine Tender Hematology/Oncology 01/05/22 Net Washer Relationship Specialty Start Date End Date Juancho Aldridge MD [address] [place] [address] Physician Hematology/Oncology 01/05/22 Brinda Delatorre, CYCLING INSTRUCTOR.PLASTER MACHINE TENDER [address] [place] [address] Nurse Practitioner Hematology/Oncology 01/05/22 Kelly Sevilla, CLAY [address] [place] [address] Specialty Bindery Machine Tender Hematology/Oncology 01/05/22 Net Washer Relationship Specialty Start Date End Date Juancho Aldridge MD [address] [place] [address] Physician Hematology/Oncology 01/05/22 Brinda Delatorre, CYCLING INSTRUCTOR.PLASTER MACHINE TENDER [address] [place] [address] Nurse Practitioner Hematology/Oncology 01/05/22 Kelly Sevilla, CLAY [address] [place] [address] Specialty Bindery Machine Tender Hematology/Oncology 01/05/22 Net Washer Relationship Specialty Start Date End Date Juancho Aldridge MD [address] [facility] [place] [address] Physician Hematology/Oncology 01/05/22 Brinda Delatorre, CYCLING INSTRUCTOR.PLASTER MACHINE TENDER [address] [facility] [place] [address] Nurse Practitioner Hematology/Oncology 01/05/22 Kelly Sevilla, RN [address] [facility] [place] [address] Specialty Bindery Machine Tender Hematology/Oncology 01/05/22 Net Washer Relationship Specialty Start Date End Date Chayito Duarte MD [address] [place] [address] PCP - General Family Medicine 12/21/22 Juancho lAdridge MD [address] [place] [address] Physician Hematology/Oncology 01/05/22 Brinda Delatorre, CYCLING INSTRUCTOR.PLASTER MACHINE TENDER [address] [facility] [place] [address] Nurse Practitioner Hematology/Oncology 01/05/22 Kelly Sevilla, RN [address] [facility] [place] [address] Specialty Bindery Machine Tender Hematology/Oncology 01/05/22 Net Washer Relationship Specialty Start Date End Date Chayito Duarte MD [address] [place] [address] PCP - General Family Medicine 12/21/22 Juancho Aldridge MD [address] [place] [address] Physician Hematology/Oncology 01/05/22 Brinda Delatorre, CYCLING INSTRUCTOR.PLASTER MACHINE TENDER [address] [place] [address] Nurse Practitioner Hematology/Oncology 01/05/22 Kelly Sevilla, CLAY [address] [place] [address] Specialty Bindery Machine Tender Hematology/Oncology 01/05/22 Net Washer Relationship Specialty Start Date End Date Chayito Duarte MD [facility] [place] [address] PCP - General Family Medicine 12/21/22 Juancho Aldridge MD [address] [place] [address] [place] [address] Physician Hematology/Oncology 01/05/22 Brinda Delatorre, CYCLING INSTRUCTOR.PLASTER MACHINE TENDER [address] [place] [address] Nurse Practitioner Hematology/Oncology 01/05/22 Kelly Sevilla, CLAY [address] [place] [address] Specialty Bindery Machine Tender Hematology/Oncology 01/05/22 Net Washer Relationship Specialty Start Date End Date Chayito Duarte MD [address] [place] [address] PCP - General Family Medicine 12/21/22 Juancho Aldridge MD [address] [place] [address] Physician Hematology/Oncology 01/05/22 Brinda Delatorre, CYCLING INSTRUCTOR.PLASTER MACHINE TENDER [address] [facility] [place] [address] Nurse Practitioner Hematology/Oncology 01/05/22 Kelly Sevilla, RN [address] [facility] [place] [address] Specialty Bindery Machine Tender Hematology/Oncology 01/05/22 Net Washer Relationship Specialty Start Date End Date Chayito Duarte MD [address] [place] [address] PCP - General Family Medicine 12/21/22 Juancho Aldridge MD [address] [facility] [place] [address] Physician Hematology/Oncology 01/05/22 Brinda Delatorre, CYCLING INSTRUCTOR.PLASTER MACHINE TENDER [address] [facility] [place] [address] Nurse Practitioner Hematology/Oncology 01/05/22 Kelly Sevilla, RN [address] [facility] [place] [address] Specialty Bindery Machine Tender Hematology/Oncology 01/05/22 Net Washer Relationship Specialty Start Date End Date Chayito Duarte MD [address] [place] [address] PCP - General Family Medicine 12/21/22 Juancho Aldridge MD [address] [facility] [place] [address] Physician Hematology/Oncology 01/05/22 Brinda Delatorre, CYCLING INSTRUCTOR.PLASTER MACHINE TENDER [address] [facility] [place] [address] Nurse Practitioner Hematology/Oncology 01/05/22 Kelly Sevilla, CLAY [address] [place] [address] Specialty Bindery Machine Tender Hematology/Oncology 01/05/22 Net Washer Relationship Specialty Start Date End Date Chayito Duarte MD [address] [place] [address] PCP - General Family Medicine 12/21/22 Juancho Aldridge MD [address] [place] [address] Physician Hematology/Oncology 01/05/22 Brinda Delatorre, CYCLING INSTRUCTOR.PLASTER MACHINE TENDER [address] [place] [address] Nurse Practitioner Hematology/Oncology 01/05/22 Kelly Sevilla, CLAY [address] [place] [address] Specialty Bindery Machine Tender Hematology/Oncology 01/05/22 Net Washer Relationship Specialty Start Date End Date Chayito Duarte MD [address] [place] [address] PCP - General Family Medicine 12/21/22 Juancho Aldridge MD [address] [place] [address] Physician Hematology/Oncology 01/05/22 Brinda Delatorre, CYCLING INSTRUCTOR.PLASTER MACHINE TENDER [address] [place] [address] Nurse Practitioner Hematology/Oncology 01/05/22 Kelly Sevilla, CLAY [address] [facility] [place] [address] Specialty Bindery Machine Tender Hematology/Oncology 01/05/22 Net Washer Relationship Specialty Start Date End Date Chayito Duarte MD [address] [place] [address] PCP - General Family Medicine 12/21/22 Juancho Aldridge MD [address] [facility] [place] [address] Physician Hematology/Oncology 01/05/22 Brinda Delatorre, CYCLING INSTRUCTOR.PLASTER MACHINE TENDER [address] [facility] [place] [address] Nurse Practitioner Hematology/Oncology 01/05/22 Kelly Sevilla RN [address] [facility] [address] Specialty Bindery Machine Tender Hematology/Oncology 01/05/22 Net Washer Relationship Specialty Start Date End Date Chayito Duarte MD [address] [place] [address] PCP - General Family Medicine 12/21/22 Juancho Aldridge MD [address] [facility] [address] Physician Hematology/Oncology 01/05/22 Brinda Delatorre, CYCLING INSTRUCTOR.PLASTER MACHINE TENDER [address] [facility] [address] Nurse Practitioner Hematology/Oncology 01/05/22 Kelly Sevilla, CLAY [address] [facility] [address] Specialty Bindery Machine Tender Hematology/Oncology 01/05/22 Net Washer Relationship Specialty Start Date End Date Chayito Duarte MD [address] [place] [address] PCP - General Family Medicine 12/21/22 Juancho Aldridge MD [address] [facility] [address] Physician Hematology/Oncology 01/05/22 Brinda Delatorre, CYCLING INSTRUCTOR.PLASTER MACHINE TENDER [address] [facility] [address] Nurse Practitioner Hematology/Oncology 01/05/22 Kelly Sevilla, CLAY [address] [facility] [address] Specialty Bindery Machine Tender Hematology/Oncology 01/05/22 Net Washer Relationship Specialty Start Date End Date Chayito Duarte MD [facility] [place] [place] [address] PCP - General Family Medicine 12/21/22 Juancho Aldridge MD [address] [facility] [address] Physician Hematology/Oncology 01/05/22 Brinda Delatorre, CYCLING INSTRUCTOR.PLASTER MACHINE TENDER [address] [facility] [facility] [address] Nurse Practitioner Hematology/Oncology 01/05/22 Kelly Sevilla, RN [address] [facility] [address] Specialty Bindery Machine Tender Hematology/Oncology 01/05/22 Net Washer Relationship Specialty Start Date End Date Chayito Duarte MD [address] [place] [address] PCP - General Family Medicine 12/21/22 Juancho Aldridge MD [address] [place] [address] Physician Hematology/Oncology 01/05/22 Brinda Delatorre, CYCLING INSTRUCTOR.PLASTER MACHINE TENDER [address] [place] [address] Nurse Practitioner Hematology/Oncology 01/05/22 Kelly Sevilla, RN [address] [place] [address] Specialty Bindery Machine Tender Hematology/Oncology 01/05/22 Net Washer Relationship Specialty Start Date End Date Chayito Duarte MD [address] [place] [address] PCP - General Family Medicine 12/21/22 Juancho Aldridge MD [address] [place] [address] Physician Hematology/Oncology 01/05/22 Brinda Delatorre, CYCLING INSTRUCTOR.PLASTER MACHINE TENDER [address] [place] [address] Nurse Practitioner Hematology/Oncology 01/05/22 Kelly Sevilla, RN [address] [place] [address] Specialty Bindery Machine Tender Hematology/Oncology 01/05/22 Net Washer Relationship Specialty Start Date End Date Chayito Duarte MD [address] [place] [address] PCP - General Family Medicine 12/21/22 Juancho Aldridge MD [address] [place] [address] Physician Hematology/Oncology 01/05/22 Brinda Delatorre, CYCLING INSTRUCTOR.PLASTER MACHINE TENDER [address] [place] [address] Nurse Practitioner Hematology/Oncology 01/05/22 Kelly Sevilla, RN [address] [facility] [place] [address] Specialty Bindery Machine Tender Hematology/Oncology 01/05/22 Net Washer Relationship Specialty Start Date End Date Chayito Duarte MD [address] [place] [address] PCP - General Family Medicine 12/21/22 Juancho Aldridge MD [address] [place] [address] Physician Hematology/Oncology 01/05/22 Brinda Delatorre, CYCLING INSTRUCTOR.PLASTER MACHINE TENDER [address] [place] [address] Nurse Practitioner Hematology/Oncology 01/05/22 Kelly Sevilla, CLAY [address] [place] [address] Specialty Bindery Machine Tender Hematology/Oncology 01/05/22 Net Washer Relationship Specialty Start Date End Date Chayito Duarte MD [address] [place] [address] PCP - General Family Medicine 12/21/22 Juancho Aldridge MD [address] [facility] [place] [address] Physician Hematology/Oncology 01/05/22 Brinda Delatorre, CYCLING INSTRUCTOR.PLASTER MACHINE TENDER [address] [place] [address] Nurse Practitioner Hematology/Oncology 01/05/22 Kelly Sevilla, CLAY [address] [facility] [place] [address] Specialty Bindery Machine Tender Hematology/Oncology 01/05/22 Net Washer Relationship Specialty Start Date End Date Chayito Duarte MD [address] [place], [place] [address] [address] PCP - General Family Medicine 12/21/22 Juancho Aldridge MD [address] [place] [address] Physician Hematology/Oncology 01/05/22 Brinda Delatorre, CYCLING INSTRUCTOR.PLASTER MACHINE TENDER [address] [place] [address] Nurse Practitioner Hematology/Oncology 01/05/22 Kelly Sevilla, CLAY [address] [facility] [place] [address] Specialty Bindery Machine Tender Hematology/Oncology 01/05/22 Net Washer Relationship Specialty Start Date End Date Chayito Duarte MD [address] [place] [address] PCP - General Family Medicine 12/21/22 Juancho Aldridge MD [address] [place] [address] Physician Hematology/Oncology 01/05/22 Brinda Delatorre, CYCLING INSTRUCTOR.PLASTER MACHINE TENDER [address] [facility] [address] Nurse Practitioner Hematology/Oncology 01/05/22 Kelly Sevilla, RN [address] [facility] [address] Specialty Bindery Machine Tender Hematology/Oncology 01/05/22 Net Washer Relationship Specialty Start Date End Date Chayito Duarte MD [address] [place] [address] PCP - General Family Medicine 12/21/22 Juancho Aldridge MD [address] [facility] [place] [address] Physician Hematology/Oncology 01/05/22 Brinda Delatorre, CYCLING INSTRUCTOR.PLASTER MACHINE TENDER [address] [facility] [place] [address] Nurse Practitioner Hematology/Oncology 01/05/22 Kelly Sevilla, CLAY [address] [facility] [place] [address] Specialty Bindery Machine Tender Hematology/Oncology 01/05/22 Net Washer Relationship Specialty Start Date End Date Chayito Duarte MD [address] [place] [address] PCP - General Family Medicine 12/21/22 Juancho Aldridge MD [address] [facility] [place] [address] Physician Hematology/Oncology 01/05/22 Brinda Delatorre, CYCLING INSTRUCTOR.PLASTER MACHINE TENDER [address] [facility] [facility] [address] Nurse Practitioner Hematology/Oncology 01/05/22 Kelly Sevilla, CLAY [address] [place] [address] Specialty Bindery Machine Tender Hematology/Oncology 01/05/22 Net Washer Relationship Specialty Start Date End Date Chayito Duarte MD [address] [place] [address] PCP - General Family Medicine 12/21/22 Juancho Aldridge MD [address] [place] [address] Physician Hematology/Oncology 01/05/22 Brinda Delatorre, CYCLING INSTRUCTOR.PLASTER MACHINE TENDER [address] [place] [address] Nurse Practitioner Hematology/Oncology 01/05/22 Kelly Sevilla, CLAY [address] [place] [address] Specialty Bindery Machine Tender Hematology/Oncology 01/05/22 Net Washer Relationship Specialty Start Date End Date Chayito Duarte MD [address] [place] [address] PCP - General Family Medicine 12/21/22 Juancho Aldridge MD [address] [place] [address] Physician Hematology/Oncology 01/05/22 Brinda Delatorre, CYCLING INSTRUCTOR.PLASTER MACHINE TENDER [address] [place] [address] Nurse Practitioner Hematology/Oncology 01/05/22 Kelly Sevilla, CLAY [address] [facility] [place] [address] Specialty Bindery Machine Tender Hematology/Oncology 01/05/22 Net Washer Relationship Specialty Start Date End Date Chayito Duarte MD [address] [place] [address] PCP - General Family Medicine 12/21/22 Juancho Aldridge MD [address] [facility] [place] [address] Physician Hematology/Oncology 01/05/22 Brinda Delatorre, CYCLING INSTRUCTOR.PLASTER MACHINE TENDER [address] [facility] [place] [address] Nurse Practitioner Hematology/Oncology 01/05/22 Kelly Sevilla RN [address] [facility] [address] Specialty Bindery Machine Tender Hematology/Oncology 01/05/22 Net Washer Relationship Specialty Start Date End Date Chayito Duarte MD [address] [place] [address] PCP - General Family Medicine 12/21/22 Juancho Aldridge MD [address] [facility] [address] Physician Hematology/Oncology 01/05/22 Brinda Delatorre, CYCLING INSTRUCTOR.PLASTER MACHINE TENDER [address] [facility] [address] Nurse Practitioner Hematology/Oncology 01/05/22 Kelly Sevilla RN [address] [facility] [place] [address] Specialty Bindery Machine Tender Hematology/Oncology 01/05/22 Net Washer Relationship Specialty Start Date End Date Chayito Duarte MD [address] [place] [address] PCP - General Family Medicine 12/21/22 Juancho Aldridge MD [address] [facility] [address] Physician Hematology/Oncology 01/05/22 Brinda Delatorre, CYCLING INSTRUCTOR.PLASTER MACHINE TENDER [address] [facility] [place] [address] Nurse Practitioner Hematology/Oncology 01/05/22 Kelly Sevilla, CLAY [address] [facility] [place] [address] Specialty Bindery Machine Tender Hematology/Oncology 01/05/22 Net Washer Relationship Specialty Start Date End Date Chayito Duarte MD [address] [place] [address] PCP - General Family Medicine 12/21/22 Juancho Aldridge MD [address] [facility] [address] Physician Hematology/Oncology 01/05/22 Brinda Delatorre, CYCLING INSTRUCTOR.PLASTER MACHINE TENDER [address] [facility] [address] Nurse Practitioner Hematology/Oncology 01/05/22 Kelly Sevilla, RN [address] [facility] [address] Specialty Bindery Machine Tender Hematology/Oncology 01/05/22 Net Washer Relationship Specialty Start Date End Date Chayito Duarte MD [address] [place] [address] PCP - General Family Medicine 12/21/22 Juancho Aldridge MD [address] [facility] [address] Physician Hematology/Oncology 01/05/22 Brinda Delatorre, CYCLING INSTRUCTOR.PLASTER MACHINE TENDER [address] [facility] [facility] [place] [address] Nurse Practitioner Hematology/Oncology 01/05/22 Kelly Sevilla, CLAY [address] [facility] [address] Specialty Bindery Machine Tender Hematology/Oncology 01/05/22 Net Washer Relationship Specialty Start Date End Date Chayito Duarte MD [address] [place] [address] PCP - General Family Medicine 12/21/22 Juancho Aldridge MD [address] [facility] [address] Physician Hematology/Oncology 01/05/22 Brinda Delatorre, CYCLING INSTRUCTOR.PLASTER MACHINE TENDER [address] [facility] [address] Nurse Practitioner Hematology/Oncology 01/05/22 Kelly Sevilla, RN [address] [facility] [address] Specialty Bindery Machine Tender Hematology/Oncology 01/05/22 Net Washer Relationship Specialty Start Date End Date Chayito Duarte MD [address] [place] [address] PCP - General Family Medicine 12/21/22 Juancho Aldridge MD [address] [place] [address] Physician Hematology/Oncology 01/05/22 Brinda Delatorre, CYCLING INSTRUCTOR.PLASTER MACHINE TENDER [address] [place] [address] Nurse Practitioner Hematology/Oncology 01/05/22 Kelly Sevilla, CLAY [address] [place] [address] Specialty Bindery Machine Tender Hematology/Oncology 01/05/22 Team Status: Active Member Role Status Dates Chayito Duarte MD Primary Care Provider Active Team Status: Inactive Member Role Status Dates Chayito Duarte MD Primary Care Provider Active Miguel Angel Mcbride , Other Provider Active Martin Holm MD Admit Provider, Attending Provider Active Net Washer Relationship Specialty Start Date End Date Chayito Duarte MD [address] [place] [address] PCP - General Family Medicine 12/21/22 Juancho Aldridge MD [address] [place] [address] Physician Hematology/Oncology 01/05/22 Brinda Delatorre, CYCLING INSTRUCTOR.PLASTER MACHINE TENDER [address] [place] [address] Nurse Practitioner Hematology/Oncology 01/05/22 Kelly Sevilla, CLAY [address] [place] [address] Specialty Bindery Machine Tender Hematology/Oncology 01/05/22 Net Washer Relationship Specialty Start Date End Date Chayito Duarte MD [address] [place] [address] PCP - General Family Medicine 12/21/22 Juancho Aldridge MD [address] [facility] [place] [address] Physician Hematology/Oncology 01/05/22 Brinda Delatorre, CYCLING INSTRUCTOR.PLASTER MACHINE TENDER [address] [facility] [place] [address] Nurse Practitioner Hematology/Oncology 01/05/22 Kelly Sevilla, RN [address] [facility] [address] Specialty Bindery Machine Tender Hematology/Oncology 01/05/22 Net Washer Relationship Specialty Start Date End Date Chayito Duarte MD [address] [place] [address] PCP - General Family Medicine 12/21/22 Juancho Aldridge MD [address] [place] [address] Physician Hematology/Oncology 01/05/22 Brinda eDlatorre, CYCLING INSTRUCTOR.PLASTER MACHINE TENDER [address] [place] [address] Nurse Practitioner Hematology/Oncology 01/05/22 Kelly Sevilla, RN [address] [facility] [address] Specialty Bindery Machine Tender Hematology/Oncology 01/05/22 Net Washer Relationship Specialty Start Date End Date Nina Smith MD [address] [place] [address] PCP - General Family Medicine 11/30/22 Net Washer Relationship Specialty Start Date End Date Chayito Duarte MD [address] [place] [address] PCP - General Family Medicine 12/21/22 Juancho Aldridge MD [address] [facility] [address] Physician Hematology/Oncology 01/05/22 Brinda Delatorre, CYCLING INSTRUCTOR.PLASTER MACHINE TENDER [address] [facility] [address] Nurse Practitioner Hematology/Oncology 01/05/22 Kelly Sevilla, CLAY [address] [facility] [address] Specialty Bindery Machine Tender Hematology/Oncology 01/05/22 Net Washer Relationship Specialty Start Date End Date Chayito Duarte MD [address] [place] [address] PCP - General Family Medicine 12/21/22 Juancho Aldridge MD [address] [facility] [address] Physician Hematology/Oncology 01/05/22 Brinda Delatorre, CYCLING INSTRUCTOR.PLASTER MACHINE TENDER [address] [place] [address] Nurse Practitioner Hematology/Oncology 01/05/22 Kelly Sevilla, RN [address] [facility] [address] Specialty Bindery Machine Tender Hematology/Oncology 01/05/22 Net Washer Relationship Specialty Start Date End Date Chayito Duarte MD [address] [place] [address] PCP - General Family Medicine 12/21/22 Juancho Aldridge MD [address] [facility] [address] Physician Hematology/Oncology 01/05/22 Brinda Delatorre, CYCLING INSTRUCTOR.PLASTER MACHINE TENDER [address] [facility] [address] Nurse Practitioner Hematology/Oncology 01/05/22 Kelly Sevilla, CLAY [address] [facility] [address] Specialty Bindery Machine Tender Hematology/Oncology 01/05/22 Net Washer Relationship Specialty Start Date End Date Chayito Duarte MD [address] [place] [address] PCP - General Family Medicine 12/21/22 Juancho Aldridge MD [address] [facility] [address] Physician Hematology/Oncology 01/05/22 Brinda Delatorre, CYCLING INSTRUCTOR.PLASTER MACHINE TENDER [address] [facility] [address] Nurse Practitioner Hematology/Oncology 01/05/22 Kelly Sevilla, CLAY [address] [facility] [address] Specialty Bindery Machine Tender Hematology/Oncology 01/05/22 Net Washer Relationship Specialty Start Date End Date Chayito Duarte MD [address] [place] [address] PCP - General Family Medicine 12/21/22 Juancho Aldridge MD [address] [place] [address] [place] [address] Physician Hematology/Oncology 01/05/22 Brinda Delatorre APRN.PLASTER MACHINE TENDER [address] [place] [address] [place] [address] Nurse Practitioner Hematology/Oncology 01/05/22 Kelly Sevilla, CLAY [address] [place] [address] [place] [address] Specialty Bindery Machine Tender Hematology/Oncology 01/05/22 Source Comments (unrecognize d section and content) In the event this informatio n is protected by the Federal Confidentiality of Alcohol and Drug Abuse Patient Records regulations: The Federal rules restrict any use of the information to criminally investigate or prosecute any alcohol or drug abuse patient.[facility] the event this information is protected by the Federal Confidentiality of Alcohol and Drug Abuse Patient Records regulations: The Federal rules restrict any use of the information to criminally investigate or prosecute any alcohol or drug abuse patient.[facility] CenterIn the event this information is protected by the Federal Confidentiality of Alcohol and Drug Abuse Patient Records regulations: The Federal rules restrict any use of the information to criminally investigate or prosecute any alcohol or drug abuse patient.[facility] the event this information is protected by the Federal Confidentiality of Alcohol and Drug Abuse Patient Records regulations: The Federal rules restrict any use of the information to criminally investigate or prosecute any alcohol or drug abuse patient.[facility] CenterIn the event this information is protected by the Federal Confidentiality of Alcohol and Drug Abuse Patient Records regulations: The Federal rules restrict any use of the information to criminally investigate or prosecute any alcohol or drug abuse patient.[facility] CenterIn the event this information is protected by the Federal Confidentiality of Alcohol and Drug Abuse Patient Records regulations: The Federal rules restrict any use of the information to criminally investigate or prosecute any alcohol or drug abuse patient.[facility] CenterIn the event this information is protected by the Federal Confidentiality of Alcohol and Drug Abuse Patient Records regulations: The Federal rules restrict any use of the information to criminally investigate or prosecute any alcohol or drug abuse patient.[facility] CenterIn the event this information is protected by the Federal Confidentiality of Alcohol and Drug Abuse Patient Records regulations: The Federal rules restrict any use of the information to criminally investigate or prosecute any alcohol or drug abuse patient.[facility] CenterIn the event this information is protected by the Federal Confidentiality of Alcohol and Drug Abuse Patient Records regulations: The Federal rules restrict any use of the information to criminally investigate or prosecute any alcohol or drug abuse patient.[facility] CenterIn the event this information is protected by the Federal Confidentiality of Alcohol and Drug Abuse Patient Records regulations: The Federal rules restrict any use of the information to criminally investigate or prosecute any alcohol or drug abuse patient.[facility] CenterIn the event this information is protected by the Federal Confidentiality of Alcohol and Drug Abuse Patient Records regulations: The Federal rules restrict any use of the information to criminally investigate or prosecute any alcohol or drug abuse patient.[facility] CenterIn the event this information is protected by the Federal Confidentiality of Alcohol and Drug Abuse Patient Records regulations: The Federal rules restrict any use of the information to criminally investigate or prosecute any alcohol or drug abuse patient.[facility] CenterIn the event this information is protected by the Federal Confidentiality of Alcohol and Drug Abuse Patient Records regulations: The Federal rules restrict any use of the information to criminally investigate or prosecute any alcohol or drug abuse patient.[facility] CenterIn the event this information is protected by the Federal Confidentiality of Alcohol and Drug Abuse Patient Records regulations: The Federal rules restrict any use of the information to criminally investigate or prosecute any alcohol or drug abuse patient.[facility] CenterIn the event this information is protected by the Federal Confidentiality of Alcohol and Drug Abuse Patient Records regulations: The Federal rules restrict any use of the information to criminally investigate or prosecute any alcohol or drug abuse patient.[facility] CenterIn the event this information is protected by the Federal Confidentiality of Alcohol and Drug Abuse Patient Records regulations: The Federal rules restrict any use of the information to criminally investigate or prosecute any alcohol or drug abuse patient.[facility] CenterIn the event this information is protected by the Federal Confidentiality of Alcohol and Drug Abuse Patient Records regulations: The Federal rules restrict any use of the information to criminally investigate or prosecute any alcohol or drug abuse patient.[facility] CenterIn the event this information is protected by the Federal Confidentiality of Alcohol and Drug Abuse Patient Records regulations: The Federal rules restrict any use of the information to criminally investigate or prosecute any alcohol or drug abuse patient.[facility] CenterIn the event this information is protected by the Federal Confidentiality of Alcohol and Drug Abuse Patient Records regulations: The Federal rules restrict any use of the information to criminally investigate or prosecute any alcohol or drug abuse patient.[facility] CenterIn the event this information is protected by the Federal Confidentiality of Alcohol and Drug Abuse Patient Records regulations: The Federal rules restrict any use of the information to criminally investigate or prosecute any alcohol or drug abuse patient.[facility] CenterIn the event this information is protected by the Federal Confidentiality of Alcohol and Drug Abuse Patient Records regulations: The Federal rules restrict any use of the information to criminally investigate or prosecute any alcohol or drug abuse patient.[facility] CenterIn the event this information is protected by the Federal Confidentiality of Alcohol and Drug Abuse Patient Records regulations: The Federal rules restrict any use of the information to criminally investigate or prosecute any alcohol or drug abuse patient.[facility] CenterIn the event this information is protected by the Federal Confidentiality of Alcohol and Drug Abuse Patient Records regulations: The Federal rules restrict any use of the information to criminally investigate or prosecute any alcohol or drug abuse patient.[facility] CenterIn the event this information is protected by the Federal Confidentiality of Alcohol and Drug Abuse Patient Records regulations: The Federal rules restrict any use of the information to criminally investigate or prosecute any alcohol or drug abuse patient.[facility] CenterIn the event this information is protected by the Federal Confidentiality of Alcohol and Drug Abuse Patient Records regulations: The Federal rules restrict any use of the information to criminally investigate or prosecute any alcohol or drug abuse patient.[facility] CenterIn the event this information is protected by the Federal Confidentiality of Alcohol and Drug Abuse Patient Records regulations: The Federal rules restrict any use of the information to criminally investigate or prosecute any alcohol or drug abuse patient.[facility] CenterIn the event this information is protected by the Federal Confidentiality of Alcohol and Drug Abuse Patient Records regulations: The Federal rules restrict any use of the information to criminally investigate or prosecute any alcohol or drug abuse patient.[facility] CenterIn the event this information is protected by the Federal Confidentiality of Alcohol and Drug Abuse Patient Records regulations: The Federal rules restrict any use of the information to criminally investigate or prosecute any alcohol or drug abuse patient.[facility] CenterIn the event this information is protected by the Federal Confidentiality of Alcohol and Drug Abuse Patient Records regulations: The Federal rules restrict any use of the information to criminally investigate or prosecute any alcohol or drug abuse patient.[facility] CenterIn the event this information is protected by the Federal Confidentiality of Alcohol and Drug Abuse Patient Records regulations: The Federal rules restrict any use of the information to criminally investigate or prosecute any alcohol or drug abuse patient.[facility] CenterIn the event this information is protected by the Federal Confidentiality of Alcohol and Drug Abuse Patient Records regulations: The Federal rules restrict any use of the information to criminally investigate or prosecute any alcohol or drug abuse patient.[facility] CenterIn the event this information is protected by the Federal Confidentiality of Alcohol and Drug Abuse Patient Records regulations: The Federal rules restrict any use of the information to criminally investigate or prosecute any alcohol or drug abuse patient.[facility] CenterIn the event this information is protected by the Federal Confidentiality of Alcohol and Drug Abuse Patient Records regulations: The Federal rules restrict any use of the information to criminally investigate or prosecute any alcohol or drug abuse patient.[facility] CenterIn the event this information is protected by the Federal Confidentiality of Alcohol and Drug Abuse Patient Records regulations: The Federal rules restrict any use of the information to criminally investigate or prosecute any alcohol or drug abuse patient.[facility] CenterIn the event this information is protected by the Federal Confidentiality of Alcohol and Drug Abuse Patient Records regulations: The Federal rules restrict any use of the information to criminally investigate or prosecute any alcohol or drug abuse patient.[facility] CenterIn the event this information is protected by the Federal Confidentiality of Alcohol and Drug Abuse Patient Records regulations: The Federal rules restrict any use of the information to criminally investigate or prosecute any alcohol or drug abuse patient.[facility] CenterIn the event this information is protected by the Federal Confidentiality of Alcohol and Drug Abuse Patient Records regulations: The Federal rules restrict any use of the information to criminally investigate or prosecute any alcohol or drug abuse patient.[facility] CenterIn the event this information is protected by the Federal Confidentiality of Alcohol and Drug Abuse Patient Records regulations: The Federal rules restrict any use of the information to criminally investigate or prosecute any alcohol or drug abuse patient.[facility] CenterIn the event this information is protected by the Federal Confidentiality of Alcohol and Drug Abuse Patient Records regulations: The Federal rules restrict any use of the information to criminally investigate or prosecute any alcohol or drug abuse patient.[facility] CenterIn the event this information is protected by the Federal Confidentiality of Alcohol and Drug Abuse Patient Records regulations: The Federal rules restrict any use of the information to criminally investigate or prosecute any alcohol or drug abuse patient.[facility] CenterIn the event this information is protected by the Federal Confidentiality of Alcohol and Drug Abuse Patient Records regulations: The Federal rules restrict any use of the information to criminally investigate or prosecute any alcohol or drug abuse patient.[facility] CenterIn the event this information is protected by the Federal Confidentiality of Alcohol and Drug Abuse Patient Records regulations: The Federal rules restrict any use of the information to criminally investigate or prosecute any alcohol or drug abuse patient.[facility] CenterIn the event this information is protected by the Federal Confidentiality of Alcohol and Drug Abuse Patient Records regulations: The Federal rules restrict any use of the information to criminally investigate or prosecute any alcohol or drug abuse patient.[facility] CenterIn the event this information is protected by the Federal Confidentiality of Alcohol and Drug Abuse Patient Records regulations: The Federal rules restrict any use of the information to criminally investigate or prosecute any alcohol or drug abuse patient.[facility] CenterIn the event this information is protected by the Federal Confidentiality of Alcohol and Drug Abuse Patient Records regulations: The Federal rules restrict any use of the information to criminally investigate or prosecute any alcohol or drug abuse patient.[facility] CenterIn the event this information is protected by the Federal Confidentiality of Alcohol and Drug Abuse Patient Records regulations: The Federal rules restrict any use of the information to criminally investigate or prosecute any alcohol or drug abuse patient.[facility] CenterIn the event this information is protected by the Federal Confidentiality of Alcohol and Drug Abuse Patient Records regulations: The Federal rules restrict any use of the information to criminally investigate or prosecute any alcohol or drug abuse patient.[facility] CenterIn the event this information is protected by the Federal Confidentiality of Alcohol and Drug Abuse Patient Records regulations: The Federal rules restrict any use of the information to criminally investigate or prosecute any alcohol or drug abuse patient.[facility] CenterIn the event this information is protected by the Federal Confidentiality of Alcohol and Drug Abuse Patient Records regulations: The Federal rules restrict any use of the information to criminally investigate or prosecute any alcohol or drug abuse patient.[facility] CenterIn the event this information is protected by the Federal Confidentiality of Alcohol and Drug Abuse Patient Records regulations: The Federal rules restrict any use of the information to criminally investigate or prosecute any alcohol or drug abuse patient.[facility] CenterIn the event this information is protected by the Federal Confidentiality of Alcohol and Drug Abuse Patient Records regulations: The Federal rules restrict any use of the information to criminally investigate or prosecute any alcohol or drug abuse patient.[facility] CenterIn the event this information is protected by the Federal Confidentiality of Alcohol and Drug Abuse Patient Records regulations: The Federal rules restrict any use of the information to criminally investigate or prosecute any alcohol or drug abuse patient.[facility] CenterIn the event this information is protected by the Federal Confidentiality of Alcohol and Drug Abuse Patient Records regulations: The Federal rules restrict any use of the information to criminally investigate or prosecute any alcohol or drug abuse patient.[facility] CenterIn the event this information is protected by the Federal Confidentiality of Alcohol and Drug Abuse Patient Records regulations: The Federal rules restrict any use of the information to criminally investigate or prosecute any alcohol or drug abuse patient.[facility] CenterIn the event this information is protected by the Federal Confidentiality of Alcohol and Drug Abuse Patient Records regulations: The Federal rules restrict any use of the information to criminally investigate or prosecute any alcohol or drug abuse patient.[facility] CenterIn the event this information is protected by the Federal Confidentiality of Alcohol and Drug Abuse Patient Records regulations: The Federal rules restrict any use of the information to criminally investigate or prosecute any alcohol or drug abuse patient.[facility] CenterIn the event this information is protected by the Federal Confidentiality of Alcohol and Drug Abuse Patient Records regulations: The Federal rules restrict any use of the information to criminally investigate or prosecute any alcohol or drug abuse patient.[facility] CenterIn the event this information is protected by the Federal Confidentiality of Alcohol and Drug Abuse Patient Records regulations: The Federal rules restrict any use of the information to criminally investigate or prosecute any alcohol or drug abuse patient.[facility] CenterIn the event this information is protected by the Federal Confidentiality of Alcohol and Drug Abuse Patient Records regulations: The Federal rules restrict any use of the information to criminally investigate or prosecute any alcohol or drug abuse patient.[facility] CenterIn the event this information is protected by the Federal Confidentiality of Alcohol and Drug Abuse Patient Records regulations: The Federal rules restrict any use of the information to criminally investigate or prosecute any alcohol or drug abuse patient.[facility] CenterIn the event this information is protected by the Federal Confidentiality of Alcohol and Drug Abuse Patient Records regulations: The Federal rules restrict any use of the information to criminally investigate or prosecute any alcohol or drug abuse patient.[facility] CenterIn the event this information is protected by the Federal Confidentiality of Alcohol and Drug Abuse Patient Records regulations: The Federal rules restrict any use of the information to criminally investigate or prosecute any alcohol or drug abuse patient.[facility] CenterIn the event this information is protected by the Federal Confidentiality of Alcohol and Drug Abuse Patient Records regulations: The Federal rules restrict any use of the information to criminally investigate or prosecute any alcohol or drug abuse patient.[facility] CenterIn the event this information is protected by the Federal Confidentiality of Alcohol and Drug Abuse Patient Records regulations: The Federal rules restrict any use of the information to criminally investigate or prosecute any alcohol or drug abuse patient.[facility] CenterIn the event this information is protected by the Federal Confidentiality of Alcohol and Drug Abuse Patient Records regulations: The Federal rules restrict any use of the information to criminally investigate or prosecute any alcohol or drug abuse patient.[facility] CenterIn the event this information is protected by the Federal Confidentiality of Alcohol and Drug Abuse Patient Records regulations: The Federal rules restrict any use of the information to criminally investigate or prosecute any alcohol or drug abuse patient.[facility] CenterIn the event this information is protected by the Federal Confidentiality of Alcohol and Drug Abuse Patient Records regulations: The Federal rules restrict any use of the information to criminally investigate or prosecute any alcohol or drug abuse patient.[facility] CenterIn the event this information is protected by the Federal Confidentiality of Alcohol and Drug Abuse Patient Records regulations: The Federal rules restrict any use of the information to criminally investigate or prosecute any alcohol or drug abuse patient.[facility] CenterIn the event this information is protected by the Federal Confidentiality of Alcohol and Drug Abuse Patient Records regulations: The Federal rules restrict any use of the information to criminally investigate or prosecute any alcohol or drug abuse patient.[facility] CenterIn the event this information is protected by the Federal Confidentiality of Alcohol and Drug Abuse Patient Records regulations: The Federal rules restrict any use of the information to criminally investigate or prosecute any alcohol or drug abuse patient.[facility] CenterIn the event this information is protected by the Federal Confidentiality of Alcohol and Drug Abuse Patient Records regulations: The Federal rules restrict any use of the information to criminally investigate or prosecute any alcohol or drug abuse patient.[facility] CenterIn the event this information is protected by the Federal Confidentiality of Alcohol and Drug Abuse Patient Records regulations: The Federal rules restrict any use of the information to criminally investigate or prosecute any alcohol or drug abuse patient.[facility] CenterIn the event this information is protected by the Federal Confidentiality of Alcohol and Drug Abuse Patient Records regulations: The Federal rules restrict any use of the information to criminally investigate or prosecute any alcohol or drug abuse patient.[facility] CenterIn the event this information is protected by the Federal Confidentiality of Alcohol and Drug Abuse Patient Records regulations: The Federal rules restrict any use of the information to criminally investigate or prosecute any alcohol or drug abuse patient.[facility] CenterIn the event this information is protected by the Federal Confidentiality of Alcohol and Drug Abuse Patient Records regulations: The Federal rules restrict any use of the information to criminally investigate or prosecute any alcohol or drug abuse patient.[facility] CenterIn the event this information is protected by the Federal Confidentiality of Alcohol and Drug Abuse Patient Records regulations: The Federal rules restrict any use of the information to criminally investigate or prosecute any alcohol or drug abuse patient.[facility] CenterIn the event this information is protected by the Federal Confidentiality of Alcohol and Drug Abuse Patient Records regulations: The Federal rules restrict any use of the information to criminally investigate or prosecute any alcohol or drug abuse patient.[facility] CenterIn the event this information is protected by the Federal Confidentiality of Alcohol and Drug Abuse Patient Records regulations: The Federal rules restrict any use of the information to criminally investigate or prosecute any alcohol or drug abuse patient.[facility] CenterIn the event this information is protected by the Federal Confidentiality of Alcohol and Drug Abuse Patient Records regulations: The Federal rules restrict any use of the information to criminally investigate or prosecute any alcohol or drug abuse patient.[facility] CenterIn the event this information is protected by the Federal Confidentiality of Alcohol and Drug Abuse Patient Records regulations: The Federal rules restrict any use of the information to criminally investigate or prosecute any alcohol or drug abuse patient.[facility] CenterIn the event this information is protected by the Federal Confidentiality of Alcohol and Drug Abuse Patient Records regulations: The Federal rules restrict any use of the information to criminally investigate or prosecute any alcohol or drug abuse patient.[facility] CenterIn the event this information is protected by the Federal Confidentiality of Alcohol and Drug Abuse Patient Records regulations: The Federal rules restrict any use of the information to criminally investigate or prosecute any alcohol or drug abuse patient.[facility] CenterIn the event this information is protected by the Federal Confidentiality of Alcohol and Drug Abuse Patient Records regulations: The Federal rules restrict any use of the information to criminally investigate or prosecute any alcohol or drug abuse patient.[facility] CenterIn the event this information is protected by the Federal Confidentiality of Alcohol and Drug Abuse Patient Records regulations: The Federal rules restrict any use of the information to criminally investigate or prosecute any alcohol or drug abuse patient.[facility] CenterIn the event this information is protected by the Federal Confidentiality of Alcohol and Drug Abuse Patient Records regulations: The Federal rules restrict any use of the information to criminally investigate or prosecute any alcohol or drug abuse patient.[facility] CenterIn the event this information is protected by the Federal Confidentiality of Alcohol and Drug Abuse Patient Records regulations: The Federal rules restrict any use of the information to criminally investigate or prosecute any alcohol or drug abuse patient.[facility] CenterIn the event this information is protected by the Federal Confidentiality of Alcohol and Drug Abuse Patient Records regulations: The Federal rules restrict any use of the information to criminally investigate or prosecute any alcohol or drug abuse patient.[facility] CenterIn the event this information is protected by the Federal Confidentiality of Alcohol and Drug Abuse Patient Records regulations: The Federal rules restrict any use of the information to criminally investigate or prosecute any alcohol or drug abuse patient.[facility] CenterIn the event this information is protected by the Federal Confidentiality of Alcohol and Drug Abuse Patient Records regulations: The Federal rules restrict any use of the information to criminally investigate or prosecute any alcohol or drug abuse patient.[facility] CenterIn the event this information is protected by the Federal Confidentiality of Alcohol and Drug Abuse Patient Records regulations: The Federal rules restrict any use of the information to criminally investigate or prosecute any alcohol or drug abuse patient.[facility] CenterIn the event this information is protected by the Federal Confidentiality of Alcohol and Drug Abuse Patient Records regulations: The Federal rules restrict any use of the information to criminally investigate or prosecute any alcohol or drug abuse patient.[facility] CenterIn the event this information is protected by the Federal Confidentiality of Alcohol and Drug Abuse Patient Records regulations: The Federal rules restrict any use of the information to criminally investigate or prosecute any alcohol or drug abuse patient.[facility] Reason for Visit (unrecogniz ed section and content) Reason Comments Consult Specialty Diagnoses / Procedures Referred By Contac t Referred To Contact Oncology Diagnoses Prostate cancer (HCC) Procedures CONSULT TO ONCOLOGY OFFICE/OUTPATIENT NEW HIGH MDM 60-74 MINUTES Juancho Aldridge MD [facility] [place] [address] Referral ID Status Reason Start Date Expiration Date V isits Requested Visits Authorized [id number] Closed PCP Requested Referral 03/21/2023 03/20/2024 1 1 Reason Comments Prostate Cancer New patient consult Specialty Diagnoses / Procedures Referred By Contac t Referred To Contact Diagnoses Prostate cancer (HCC) Bone metastases (HCC) Procedures DENOSUMAB INJECTION Juancho Aldridge MD [facility] [place] [address] [facility] [place] [address] [place] [address] Referral ID Status Reason Start Date Expiration Date V isits Requested Visits Authorized [id number] Authorized 12/24/2021 07/05/2022 6 6 Reason Comments Non-Chemotherapy Treatment Xgeva Reason Comments Care Coordination Medication Update - Xgeva Reason Comments Prostate Cancer Reason Comments Results PSA Treatment Planning Reason Comments Oral Anti-cancer Agent Education Enzalut amide Reason Onset Date Comments Refill Request 05/03/2022 Reason Comments Care Coordination Treatment Update Reason Comments Care Coordination Xtandi Update Reason Comments Care Coordination C1D1 treatment follo w up call Reason Comments Care Coordination Medication Start Anibal e - Xtandi Reason Comments Care Coordination PSA Results Reason Comments Care Coordination Medication Question Reason Onset Date Comments Refill Request 07/05/2022 Refill Request 07/06/2022 Referral ID Status Reason Start Date Expiration Date V isits Requested Visits Authorized [id number] Authorized 12/24/2021 01/01/2023 13 13 Reason Comments Prostate Cancer 5 month follow up Reason Comments Care Coordination New Pain Reason Comments Prostate Cancer Follow up Reason Comments Nm Pet Request Reason Comments Appointment Reason Comments Oral Anti-cancer Agent Education Abirate jennifer & Prednisone Reason Comments Medication Authorization Abiraterone otis roved - high copay Reason Comments Care Coordination Medication Start Anibal e - Abiraterone & Prednisone Reason Comments Care Coordination Oral Anti-Cancer Age nt Follow Up Reason Comments Care Coordination Lab Reason Comments Care Coordination Pain; Fatigue Reason Comments Lab Orders Reason Comments Prostate Cancer 3 month follow up Specialty Diagnoses / Procedures Referred By Contac t Referred To Contact Diagnoses Prostate cancer (HCC) Bone metastases Procedures DENOSUMAB INJECTION Juancho Aldridge MD [address] [place] [address] [place] [address] [facility] Napier [address] [place] [address] Referral ID Status Reason Start Date Expiration Date V isits Requested Visits Authorized [id number] Authorized 12/24/2021 07/16/2023 9 9 Reason Comments Prostate Cancer Follow up Reason Comments 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 PSA Results Reason Comments Benefits Investigation Reason Comments Transfusion Reason Comments Prostate Cancer Treatment visit Specialty Diagnoses / Procedures Referred By Contac t Referred To Contact Diagnoses Prostate cancer (HCC) Procedures DOCETAXEL INJECTION Juancho Aldridge MD [address] [place] [address] [place] [address] [facility] [place] [address] Referral ID Status Reason Start Date Expiration Date V isits Requested Visits Authorized [id number] Authorized 02/02/2023 05/22/2023 99 99 Reason Comments Chemotherapy Treatment Docetaxel Reason Comments Psychosocial Assessment (No Answer) Reason Comments Care Coordination Appointment Specialty Diagnoses / Procedures Referred By Contac t Referred To Contact Diagnoses Anemia due to antineoplastic chemotherapy Procedures INJ RETACRIT NON-ESRD USE (RETACRIT) Juancho Aldridge MD [address] [place] [address] [facility] [place] [address] [place] [address] Referral ID Status Reason Start Date Expiration Date V isits Requested Visits Authorized [id number] Authorized 03/18/2023 05/16/2023 9 9 Referral ID Status Reason Start Date Expiration Date V isits Requested Visits Authorized [id number] Pending Review 03/18/2023 05/16/2023 9 9 Reason Comments Pluvicto Reason Comments Care Coordination Pluvicto Update Referral ID Status Reason Start Date Expiration Date V isits Requested Visits Authorized [id number] Authorized 03/18/2023 05/16/2023 15 15 Reason Comments Care Coordination Lutitium and injecti on Reason Comments Established Patient Reason Comments Radiology NM Specialty Diagnoses / Procedures Referred By Contac t Referred To Contact MOLECULAR & FUNCTIONAL IMAGING Diagnoses Prostate cancer (HCC) Procedures NM THERAPY SCARLETT-177 PSMA RP THERAPY INTRAVENOUS ADMINISTRATION LUTETIUM SCARLETT 177 VIPIVOTIDE TETRAXETAN, THERAPEUTIC Karma Oconnor MD [address] [place] [address] Molecular & Functional Imaging [address] [id number] Referral ID Status Reason Start Date Expiration Date Visits Requested Visits Authorized [id number] Authorized Auto-Generat ed Referral 04/27/2023 09/23/2023 4 4 Reason Onset Date Comments Refill Request 04/29/2023 Reason Comments Care Coordination Dental Cleaning Referral ID Status Reason Start Date Expiration Date V isits Requested Visits Authorized [id number] Authorized 03/18/2023 12/10/2023 41 41 Reason Comments Results Reason Comments Hearing Aid Check Reason Comments Prostate Cancer 3 week follow up Reason Comments 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 Lab Request Reason Comments Established Patient Reason Comments Care Coordination Fatigue; Leg Pain Inactive Administered Medications - up to 3 most recent administrations Administered Medications (un recognized section and content) Medication Order MAR Action Action Date Dose Rate Site epoetin gene-epbx 40,000 Units injection (RETACRIT) 40,000 Units, SUBCUTANEOUS, ONCE, 1 dose, On Tue06/28/23 at 1530, Refrigerate - Protect From Light - Do Not Shake, Medication Substitution: [facility] preferred product has been replaced with the insurance mandated product Given 06/28/2023 3:13 PM EST 40,000 Units Arm, Left Inactive Administered Medications - up to 3 most recent administrations Medication Order MAR Action Action Date Dose Rate Site denosumab 120 mg injection (XGEVA) 120 mg, SUBCUTANEOUS, ONCE, 1 dose, On Tue07/19/23 at 1400, REFRIGERATE Given 07/19/2023 1:41 PM EST 120 mg Arm, Right Inactive Administered Medications - up to 3 most recent administrations Medication Order MAR Action Action Date Dose Rate Site epoetin gene-epbx 40,000 Units injection (RETACRIT) 40,000 Units, SUBCUTANEOUS, ONCE, 1 dose, On Tue08/30/23 at 1530, Refrigerate - Protect From Light - Do Not Shake, Medication Substitution: [facility] preferred product has been replaced with the insurance mandated product Given 08/30/2023 3:21 PM EDT 40,000 Units Arm, Left FOR RECORDS PERTAINING TO PATIENTS WHO ARE OR HAVE BEEN ENROLLED IN A CHEMICAL DEPENDENCY/SUBSTANCEABUSE PROGRAM, SOME INFORMATION MAY BE OMITTED. This clinical summary was aggregated from multiple sources. Caution should be exercised in using it in the provision of clinical care. This summary normalizes information from multiple sources, and as a consequence, information in this document may materially change the coding, format and clinical context of patient data. In addition, data may be omitted in some cases. CLINICAL DECISIONS SHOULD BE BASED ON THE PRIMARY CLINICAL RECORDS. [employer] provides no warranty or guarantee of the accuracy or completeness of information in this document.
[2023-09-10 18:36] LABS: Basophils Percent Auto 0.4 % (0.2-2.0); Eosinophils Percent Auto 0.4 % (0.9-7.0); Hematocrit 31.4 % (42.0-54.0); Immature Granulocytes Abs Auto 0.04 10^3/uL (0.00-0.03); Immature Granulocytes Pct Auto 1.7 % (0.0-0.5); Lymphocytes Absolute Auto 0.3 10^3/uL (1.2-3.8); Lymphocytes Percent Auto 11.2 % (20.5-60.0); Mean Corpuscular HGB Conc 31.8 g/dL (29.9-35.2); Mean Corpuscular Hemoglobin 30.7 pg (25.9-34.0); Mean Corpuscular Volume 96.3 fL (80.0-94.0); Mean Platelet Volume 9.3 fL (9.5-13.5); Monocytes Absolute Auto 0.3 10^3/uL (0.3-0.8); Monocytes Percent Auto 13.2 % (1.7-12.0); Neutrophils Absolute Auto 1.8 10^3/uL (1.4-6.5); Neutrophils Percent Auto 73.1 % (43.0-75.0); Platelet Count 90 10^3/uL (150-450); Red Blood Count 3.26 10^6/uL (4.70-6.10); Red Cell Distribution Width 14.6 % (11.0-15.0); White Blood Count 2.4 10^3/uL (4.0-11.0)
[2023-09-10] MEDS: 0.9 % SODIUM CHLORIDE 1,000 ML 1000 ML IV (18:46)
[2023-09-10 18:47] LABS: INR 1.03; Prothrombin Time 10.9 sec (9.0-11.6)
[2023-09-10] MEDS: ONDANSETRON PF 4 MG/2 ML VIAL IV (18:47)
[2023-09-10 18:52] LABS: Lactate/Lactic Acid 1.5 mmol/L (0.4-2.0)
[2023-09-10 19:01] LABS: Alanine Aminotransferase 117 U/L (16-63); Albumin Globulin Ratio 0.9; Albumin Level 3.2 g/dL (3.4-5.0); Alkaline Phosphatase 1241 U/L (46-116); Anion Gap 15.2; Aspartate Amino Transferase 221 U/L (15-37); BUN Creatinine Ratio 17.4; Bilirubin Total 0.7 mg/dL (0.2-1.0); Calcium 8.6 mg/dL (8.5-10.1); Carbon Dioxide 24.4 mmol/L (21.0-32.0); Chloride 102 mmol/L (98-107); Estimated GFR (African America >60 (>=60); Estimated GFR (Non-African Ame >60 (>=60); Globulin 3.6 g/dL; Glucose 103 mg/dL (74-106); Potassium 4.6 mmol/L (3.5-5.1); Sodium 137 mmol/L (136-145); Thyroid Stimulating Hormone 4.858 uIU/mL (0.358-3.740); Total Protein 6.8 g/dL (6.4-8.2); Troponin I High Sensitivity 8.9 pg/mL (4.0-76.1)
[2023-09-10] MEDS: DEXAMETHASONE SOD PHOS 10 MG/ML VIAL IV (19:03)
[2023-09-10] MEDS: LEVETIRACETAM 1,000 MG in 0.9 % SODIUM CHLORIDE 100 ML 440 MG IV (19:45)
[2023-09-10 20:18] LABS: Adenovirus NOT DETECTED (NOT DETECTE); Bordetella parapertussis NOT DETECTED (NOT DETECTE); Coronavirus 229E NOT DETECTED (NOT DETECTE); Coronavirus HKU1 NOT DETECTED (NOT DETECTE); Coronavirus NL63 NOT DETECTED (NOT DETECTE); Coronavirus OC43 NOT DETECTED (NOT DETECTE); Human Metapneumovirus NOT DETECTED (NOT DETECTE); Human Rhinovirus/Enterovirus NOT DETECTED (NOT DETECTE); Influenza A NOT DETECTED (NOT DETECTE); Influenza B NOT DETECTED (NOT DETECTE); Mycoplasma pneumoniae NOT DETECTED (NOT DETECTE); Parainfluenza Virus 1 NOT DETECTED (NOT DETECTE); Parainfluenza Virus 2 NOT DETECTED (NOT DETECTE); Parainfluenza Virus 3 NOT DETECTED (NOT DETECTE); Parainfluenza Virus 4 NOT DETECTED (NOT DETECTE); SARS-CoV-2 NOT DETECTED (NOT DETECTE)
[2023-09-10 21:10] LABS: Respiratory Syncytial Virus DETECTED (NOT DETECTE)
[2023-09-10] MEDS: FENTANYL CITRATE/PF 100 MCG/2 ML VIAL 25 MCG IV (21:24)
== END 2023-09-10 21:38 | disposition short-term general hospital (02) ==
PROVIDERS: Physician Assistant; Emergency Provider Emergency Medicine; PCP Family Medicine
DX: I62.01 Nontraumatic acute subdural hemorrhage (principal); R47.01 Aphasia; D69.6 Thrombocytopenia, unspecified; R41.82 Altered mental status, unspecified; C79.31 Secondary malignant neoplasm of brain; C79.51 Secondary malignant neoplasm of bone; Z85.46 Personal history of malignant neoplasm of prostate; Z79.899 Other long term (current) drug therapy; Z20.822 Contact with and (suspected) exposure to COVID-19; R29.707 NIHSS score 7
CPT/HCPCS: 0202U; 36415; 70450; 71045; 80053; 83605; 84443; 84484; 85025; 85610; 93005; 96361; 96365; 96375; 99285; J1100